=== PATIENT | male | born 1940 | race Caucasian/White ===

== ENCOUNTER 2020-06-24 09:31 | Outpatient (RCR) | payer OTHER, SELFPAY ==
[2020-06-24 09:33] VITALS: BMI 30.4
== END 2020-09-08 14:05 | disposition home or self-care (01) ==
LOC: ANHDMC 09:31
PROVIDERS: Visit Provider Internal Medicine Nephrology
DX: N18.3 Chronic kidney disease, stage 3 (moderate) (principal); Z71.3 Dietary counseling and surveillance
CPT/HCPCS: 97802

== ENCOUNTER 2020-07-27 14:37 | Observation (INO) | payer OTHER, SELFPAY ==
[2020-07-27] VITALS (27 sets, daily range): BP systolic 110–184; BP diastolic 54–73; PULSE 39–54; RESP 12–29; TEMP 36.7–37.2; O2SAT 98–100; BMI 28.5
--- NOTE | ~2020-07-27 | US_ITS ---
EXAMINATION: US retroperitoneal duplex ltd EXAM DATE: 07/28/2020 16:28 INDICATION: High blood pressure. TECHNIQUE: Multiple grayscale and Doppler images of the kidneys and renal arteries were obtained. Co mparison is made to prior examination from 11/24/2012. FINDINGS: The aorta peak systolic velocity is 69 cm/s. The right renal artery peak systolic velocity is 95 cm/s in the proximal segment, 83 cm/s in the mid segment, and 97 cm/s in the distal segment. The left terry al artery peak systolic velocity is 5 cm/s in the proximal segment, 114 cm/s in the mid segment, and 100 cm/s in the distal segment. IMPRESSION: 1. Renal artery Doppler velocities within normal limits. Reviewed, dictated and finalized at location B.
--- NOTE | 2020-07-27 14:56 | ECG_ITS ---
Measurements Intervals [place] Rate: 43 P: MD: 0 QRS: 0 QRSD: 129 T: 41 QT: 516 QTc: 437 Interpretive Statements SINUS OR ECTOPIC ATRIAL RHYTHM WITH SINUS ARRHYTHMIA RSR' IN V1 OR V2, CONSIDER RIGHT VENTRICULAR HYPERTROPHY OR RIGHT VCD BASELINE ARTIFACT- I, II, III, AVL, AVF BORDERLINE ECG Electronically Signed On 07-27-2020 16:59:52 CDT by Christopher Coley D.O.
--- NOTE | 2020-07-27 15:01 | ED.WEAKNESS ---
HPI - Weakness General Chief complaint: Weakness Stated complaint: weakness/fall Time Seen by Provider: 07/27/20 14:37 History of Present Illness HPI Narrative: 79 yo male w/ htn, CKD presnets from home after a fall. He suddenly began feeling weak and dizzy then his legs gave out. He did not lose consciousness. He had a similar episodes a few days ago. He was recently started on a new blood pressure medication. He was having symptoms when he first started, but after dividing it into 2 doses this improved. No CP, SOB. He was bradycardic for EMS and they gave him atropine without response. Related Data Home Medications Medication Instructions Recorded Confirmed alprazolam 0.25 mg PO BID 07/27/20 07/27/20 doxazosin 8 mg PO DAILY 07/27/20 07/27/20 escitalopram oxalate 10 mg PO DAILY 07/27/20 07/27/20 famotidine 40 mg PO DAILY 07/27/20 07/27/20 gabapentin 200 mg PO BID 07/27/20 07/27/20 hydrochlorothiazide 25 mg PO DAILY 07/27/20 07/27/20 hydroxychloroquine 200 mg PO BID 07/27/20 07/27/20 irbesartan 150 mg PO BID 07/27/20 07/27/20 simvastatin 10 mg PO DAILY 07/27/20 07/27/20 Allergies Allergy/AdvReac Type Severity Reaction Status Date / Time No Known Allergies Allergy Verified 10/17/18 15:37 Review of Systems Review of Systems: All systems reviewed & are unremarkable except as noted in HPI and below Constitutional: Constitutional: Denies fever(s) Eyes: Eyes: Denies change in vision Cardiovascular: Cardiovascular: Denies chest pain Respiratory: Respiratory: Denies dyspnea Gastrointestinal: Gastrointestinal: Denies abdominal pain, Denies nausea and Denies vomiting Musculoskeletal: Musculoskeletal: Denies back pain Neurologic: Denies confusion, Reports dizziness, Denies syncope, Denies numbness and Reports weakness [facility] Past Medical History Medical History (Updated 07/31/20 @ 17:23 by Miguel Villaseñor MD) Bilateral carotid artery stenosis 50 to 69% stenosis on the right and greater than 70% stenosis on the left CKD (chronic kidney disease) Stage III managed by Dr. uQintin Downey Erythropoietin deficiency anemia Essential hypertension HTN (hypertension) Lupus (systemic lupus erythematosus) Monoclonal gammopathy Obstructive sleep apnea With nasal CPAP use Orthostasis Peripheral artery disease With moderately decreased ABIs bilaterally December 2011 Prostate cancer Managed by Dr. Elizalde Rectus diastasis Sjogrens syndrome Spinal stenosis at L4-L5 level Surgical History Surgical History History of right inguinal hernia repair History of total bilateral knee replacement With the right knee being replaced once in the left knee being replaced 3 times with chronic left knee pain Family History Family History Mother Cirrhosis Sibling Esophageal cancer Father Acute myocardial infarction Lung disease Sibling Esophageal cancer Social History Social History Social History: The patient has had on and off tobacco use history. According to prior documentation the patient had smoked up until 1998 and quit in evidently the patient started smoking again about 10 years ago. He lives in has 2 children. Code status: Full code Healthcare power of hot billet shear operator: Linda Frank () Smoking packs per day: 0.5 Smoking cigarettes per day: 10.0 Years smoked: 10 Smoking pack-years: 5.00 Smoking status: Current every day smoker Tobacco type: cigarettes Alcohol intake: never Substance use: never Spiritual care concerns: No Exam Const: General: no acute distress and alert Orientation/consciousness: patient oriented x3 HENMT: Head: normal to inspection Neck: Neck: normal visual inspection Chest: Chest palpation & inspection: no tenderness Resp: Effort & Inspection: normal respiratory effort Auscultation: clear to
[2020-07-27 15:09] LABS: Basophils Percent Auto 0.6 % (0.2-1.2); Eosinophils Absolute Auto 0.2 K/mm3 (0-0.3); Eosinophils Percent Auto 2.8 % (0-4.4); Hematocrit 31.3 % (42.0-52.0); Hemoglobin 10.4 g/dL (14.0-18.0); Immature Granulocyte Absolute 0.03 K/mm3 (0.00-0.031); Immature Granulocyte Percent A 0.6 % (0-0.5); Lymphocytes Absolute Auto 0.88 K/mm3 (0.9-3.2); Lymphocytes Percent Auto 16.1 % (18.3-44.2); Mean Corpuscular HGB Conc 33.2 g/dl (32-36); Mean Corpuscular Hemoglobin 32.4 pg (26-34); Mean Corpuscular Volume 97.5 fl (80-100); Mean Platelet Volume 10.1 fl (7.4-10.4); Monocytes Absolute Auto 0.5 K/mm3 (0.1-0.6); Neutrophils Absolute Auto 3.9 K/mm3 (1.3-6.7); Neutrophils Percent Auto 70.9 % (45.5-73.1); Platelet Count Result 169 k/mm3 (150-375); Red Blood Count 3.21 M/mm3 (4.6-6.20); Red Cell Distribution Width 12.5 % (11.5-14.5); White Blood Count 5.5 K/mm3 (4.5-10.0)
[2020-07-27] MEDS: SODIUM CHLORIDE 0.9% IV 1,000 ML 999 ML IV CONT (15:14)
[2020-07-27 15:20] LABS: Anion Gap 8 mmol/L (8-16); Blood Urea Nitrogen 51 mg/dL (9-20); Calcium 9.6 mg/dL (8.4-10.2); Carbon Dioxide 24 mmol/L (22-30); Chloride 110 mmol/L (98-107); Estimated CRCL calculation 26 ml/min; Estimated Glomerular Filt Rate 29; Glucose 112 mg/dL (75-110); Potassium 4.5 mmol/L (3.4-5.0); Sodium 142 mmol/L (137-145)
--- NOTE | 2020-07-27 15:26 | PC.NURSE ---
Remaining 700cc NS initiated per [facility] started for fluid bolus.
--- NOTE | 2020-07-27 16:50 | PC.NURSE ---
Pt's out to desk states wants to speak to the physician regarding the pateint's blood pressure and that it continues to rise. Explained that we're watching pt's heart rate closely as it's been less than 50 occasionally. Pt is asleep on stretcher, when awoke has no complaints.
--- NOTE | 2020-07-27 16:52 | PC.NURSE ---
Note pt's approaching Dr. Villaseñor outside of another patient's room regarding patient's blood pressure. Pt remains asleep without complaints.
[2020-07-27] MEDS: hydrALAZINE HCL 20 MG/ML VIAL 10 MG IV PUSH (17:00)
--- NOTE | 2020-07-27 18:38 | PC.NURSE ---
Preparing to admit, awaiting bed assignment. Pt's bring pt some food.
--- NOTE | 2020-07-27 19:15 | PC.NURSE ---
Report to SANCHEZ Waldrop, to continue care.
--- NOTE | 2020-07-27 20:05 | ADMGEN ---
This patient, Abdirizak Frank, was admitted to 2 Medical Room 256-01. Patient/family oriented to hospital policies and general routines including ID bracelet, bed and alarms, visiting hours, pain management, procedures, bathroom and other care routines, personal items, smoking policy, room service/diet, and visiting hours. Valuables list has been completed. Information on how to activate the Rapid Response Team has been discussed. Patient/Family are encouraged to report perceived risks to care and to ask questions if they do not understand what they are told or what they should do.
[2020-07-27] MEDS: LACTATED RINGERS 1,000 ML 75 ML IV CONT (22:31)
[2020-07-28] VITALS (12 sets, daily range): BP systolic 104–185; BP diastolic 44–79; PULSE 42–93; RESP 16–21; TEMP 36.2–36.9; O2SAT 99–100
--- NOTE | 2020-07-28 | ECHO_ITS ---
Patient Info Name: Abdirizak Frank Age: 79 years : 1940 Gender: Male Ht: 66 in Wt: 176 lbs BSA: 1.95 m2 HR: 48 bpm BP: 104 / 44 mmHg Heart Rhythm: Sinus Rhythm Technical Quality: Good Exam Date: 07/28/2020 2:41 PM Exam Location: [facility] Pulmonary Exam Room: 256 Patient Status: Inpatient Admit Date: 07/27/2020 Staff Ordering Physician: Vandana Bradford PA-C Adult Day Care Worker: Keren Wright RDCS Attending Provider: Vandana Bradford PA-C Referring Physician: Suzette MIXON; Exam Type: CA echo dop color flow w con Study Info Indications - bradycardia near syncope Complete two-dimensional, color flow and Doppler transthoracic echocardiogram is performed. Summary 1. Complete two-dimensional, color flow and Doppler transthoracic echocardiogram is performed. 2. Left ventricular systolic function is normal, estimated at Empty. 3. There is trace aortic valve regurgitation. 4. There is mild aortic valve sclerosis. 5. There is mild mitral valve regurgitation. Left Ventricle Left ventricular systolic function is normal, estimated at Empty. The left ventricular diastolic function is grade I diastolic dysfunction. Right Ventricle Right ventricular chamber dimension is normal. Left Atria Left atrial chamber dimension is normal. Right Atria Right atrial chamber dimension is normal. Aortic Valve The aortic valve is trileaflet. There is mild aortic valve sclerosis. There is trace aortic valve regurgitation. Pulmonic Valve The pulmonic valve is not well visualized. Mitral Valve The mitral valve has normal leaflets. There is mild mitral valve regurgitation. The mitral valve annulus is mildly calcified. Tricuspid Valve The tricuspid valve leaflets are normal. Pericardium/Pleural The pericardium appears normal. Aorta The aortic root size at the sinus of Valsalva is normal. Left Ventricular Outflow Tract Name Value Normal LVOT 2D LVOT Diameter 1.96 cm LVOT Doppler LVOT Peak Gradient 5 mmHg LVOT Mean Gradient 3 mmHg LVOT VTI 30.28 cm LVOT VTI/AV VTI Ratio 0.72 LVOT Stroke Volume 90.89 ml LVOT CO 14.36 l/min LVOT CI 7.37 L/min/m2 Pulmonic Valve Name Value Normal PV Doppler PV Peak Gradient 8 mmHg Mitral Valve Name Value Normal MV Doppler MV Decel [place] 132.64 cm/s2 MV PHT 0 s
[2020-07-28] MEDS: ALPRAZolam (*CRX) 0.25 MG TABLET PO ×3 (00:24→20:48)
[2020-07-28] MEDS: GABAPENTIN 100 MG CAPSULE 200 MG PO ×3 (00:24→20:49)
--- NOTE | 2020-07-28 02:52 | PM.IMHP ---
H&P: HPI History of Present Illness Date/Time: 07/28/20 03:40 Chief complaint: Weakness Narrative: Abdirizak Frank is a 79 year old male with a past medical history of hypertension, chronic kidney disease, and chronic bradycardia who presented to the ER via EMS due to generalized weakness. That he had been working out in the garage helping his daughter move some boxes around. He suddenly felt weak and dizzy as if he may pass out. He tried to walk inside but fell. He denies a complete loss of consciousness but was out of it enough that he could not respond to his family members. High subsequently called EMS. When EMS arrived at the patient's home they found his blood pressure to be 90/48 and his heart rate in the 50s. He received a half amp of atropine and a fluid bolus. That atropine did not bring the patient's heart rate up. The patient does have a history of chronic bradycardia. The patient had been evaluated by his brainer in June. On July 17 his Norvasc was discontinued and replaced with nifedipine 30 mg daily. The 1st day that he took the nifedipine on the he did have some lightheadedness and felt fatigued. He subsequently split the nifedipine and to 2 doses a 15 mg b.i.d. which seemed to improve his symptoms. He reports that he was otherwise feeling in his usual health prior to this episode. His heart rate has ranged between 40-60 since admission to the hospital. Review of Systems Review of Systems: Narrative: 12 systems were reviewed with pertinent positives and negatives per HPI. Except as documented in the HPI, all other systems were reviewed and are negative. [facility] Past Medical History Medical History (Updated 07/28/20 @ 07:02 by Rosalba Westbrook DO) Bilateral carotid artery stenosis 50 to 69% stenosis on the right and greater than 70% stenosis on the left CKD (chronic kidney disease) Stage III managed [address] Dr. Quintin Downey Essential hypertension HTN (hypertension) Lupus (systemic lupus erythematosus) Monoclonal gammopathy Obstructive sleep apnea With nasal CPAP use Peripheral artery disease With moderately decreased ABIs bilaterally December 2011 Prostate cancer Managed by Dr. Elizalde Rectus diastasis Sjogrens syndrome Spinal stenosis at L4-L5 level Surgical History Surgical History (Updated 07/28/20 @ 07:02 by Rosalba Westbrook DO) History of right inguinal hernia repair History of total bilateral knee replacement With the right knee being replaced once in the left knee being replaced 3 times with chronic left knee pain Family History Family History (Updated 07/28/20 @ 07:06 by Rosalba Westbrook DO) Mother Cirrhosis Sibling Esophageal cancer Father Acute myocardial infarction Lung disease Sibling Esophageal cancer Social History Social History (Updated 07/28/20 @ 07:06 by Rosalba Westbrook DO) Social History: The patient has had on and off tobacco use history. According to prior documentation the patient had smoked up until 1998 and quit in the patient started smoking again about 10 years ago. He lives in has 2 children. Code status: Full code [facility] power of workers compensation attorney: Linda Frank () Smoking packs per day: 0.5 Smoking cigarettes per day: 10.0 Years smoked: 10 Smoking pack-years: 5.00 Smoking status: Current every day smoker Tobacco type: cigarettes Alcohol intake: never Substance use: never Spiritual care concerns: No Meds Home Medications and Allergies Home Medications Medication Instructions Recorded Confirmed Type alprazolam 0.25 mg PO BID 07/27/20 07/27/20 History doxazosin 8 mg PO DAILY 07/27/20 07/27/20 History escitalopram oxalate 10 mg PO DAILY 07/27/20 07/27/20 History famotidine 40 mg PO DAILY 07/27/20 07/27/20 History gabapentin 200 mg PO BID 07/27/20 07/27/20 History hydralazine 10 mg PO DAILY 07/27/20 07/27/20 History hydrochlorothiazide 25 mg PO DAILY 07/27/20 07/27/20 History hydroxych
--- NOTE | 2020-07-28 07:36 | PM.CNNEP ---
Assessment and Plan Assessment and plan (1) Bradycardia: Code(s): R00.1 - Bradycardia, unspecified Status: Acute Assessment and Plan: The patient had low blood pressure and low heart rate leading to near syncope. The patient was given a long-acting formulation for nifedipine. He cut this in half, essentially changing it to the short-acting version. This may be why he was having his lightheaded spells , as he was getting a surge of nifedipine for few hours after each dose. At this point we should just stop the nifedipine and switch to something else. I am going to increase his doxazosin to8mg b.i.d.. Patient's blood pressure has been commit increasingly difficult to control. He does have peripheral vascular disease. Perhaps he has renal artery stenosis. Will check a renal artery Doppler to check on this. I will as also check hormone levels to see if there other reversible causes of his worsening hypertension. (2) CKD (chronic kidney disease): Code(s): N18.9 - Chronic kidney disease, unspecified Status: Acute Assessment and Plan: The patient has chronic kidney disease. This is from hypertension and vascular disease. His creatinine is stable. (3) Essential hypertension: Code(s): I10 - Essential (primary) hypertension Status: Acute Assessment and Plan: Blood pressure is difficult to control. See above. (4) Lupus (systemic lupus erythematosus): Code(s): M32.9 - Systemic lupus erythematosus, unspecified Status: Acute Assessment and Plan: the patient's symptoms seem to be fairly well controlled. (5) Monoclonal gammopathy: Code(s): D47.2 - Monoclonal gammopathy Status: Acute Assessment and Plan: Platelet and white cell count are okay. Calcium looks okay. He is a little bit anemic. This may be from the CKD. (6) Obstructive sleep apnea: Code(s): G47.33 - Obstructive sleep apnea (adult) (pediatric) Status: Acute Assessment and Plan: He uses CPAP machine religiously. (7) Peripheral artery disease: Code(s): I73.9 - Peripheral vascular disease, unspecified Status: Acute Assessment and Plan: He has bilateral carotid artery disease. Will check renal artery Dopplers as well. (8) Erythropoietin deficiency anemia: Code(s): D63.1 - Anemia in chronic kidney disease Status: Acute Assessment and Plan: Patient's hemoglobin is target right now. The anemia could be multifactorial. Most likely this is from his chronic kidney disease. History of Present Illness Reason for Consult Consult date: 07/28/20 Chief Complaint Chief complaint: Weakness History of Present Illness Narrative: Abdirizak is a very pleasant 79-year-old gentleman who has chronic kidney disease with a baseline creatinine of around 2, hypertension with recently difficult to control blood pressure, peripheral vascular disease with bilateral carotid artery stenosis, lupus, monoclonal gammopathy, sleep apnea on the CPAP machine, prostate cancer Sjogren's syndrome and spinal stenosis at the lumbar level. Patient has been having trouble controlling his blood pressure and has required medication adjustments. He was on hydralazine with reasonable control of his blood pressure however his surface to air weapons officer felt that the hydralazine may potentially stir up his lupus so asked that we change it to something else. So the hydralazine was discontinued and we switched him from amlodipine to nifedipine about a week and half ago. He took 1 dose of the nifedipine and felt a little bit lightheaded. Because of this he changed his nifedipine on his own to15mg twice a day. He cut the pill with a pill cutter. He did not check with the pharmacist about cutting the pill in half. He says that since then he has been somewhat lightheaded all week long. Yesterday the patient was feeling especially lightheaded then fell. He was i
[2020-07-28] MEDS: ENOXAPARIN 30 MG/0.3 ML SYRINGE SUB-Q (07:58)
[2020-07-28] MEDS: ESCITALOPRAM OXALATE 10 MG TABLET PO (07:58)
[2020-07-28] MEDS: FAMOTIDINE 20 MG TABLET 40 MG PO (07:58)
[2020-07-28] MEDS: DOXAZOSIN MESYLATE 4 MG TABLET 8 MG PO ×2 (07:59→20:49)
[2020-07-28] MEDS: hydroCHLOROthiazide 25 MG TABLET PO (07:59)
[2020-07-28] MEDS: SIMVASTATIN 10 MG TABLET PO (07:59)
[2020-07-28] MEDS: IRBESARTAN 150 MG TABLET PO ×2 (07:59→17:30)
[2020-07-28] MEDS: LACTATED RINGERS 1,000 ML 75 ML IV CONT ×2 (11:32→23:55)
--- NOTE | 2020-07-28 11:49 | PM.IMPN ---
Progress Note: A&P Assessment and Plan (1) Near syncope: Code(s): R55 - Syncope and collapse Status: Acute Assessment and Plan: Possibly secondary to bradycardia and or hypotension suspected to be due to nifedipine use which was recently started by his general passenger agent. Telemetry shows sinus bradycardia with a heart rate of 52 beats per minute, with intermittent PACs in PVCs. No other acute abnormality noted. No pauses. Orthostatic blood pressures showed a greater than 20 mm of mercury drop going from lying to sitting but the patient was asymptomatic. He has known carotid artery stenosis and follows up with a specialist for yearly monitoring of his carotid arteries. The patient's nifedipine is on hold. Patient's blood pressures are actually high this morning and while he is laying supine. Nephrology was consulted for further evaluation adjustments of his blood pressure medications. Dr. Downey ordered for hormone testing, renal artery ultrasound to look for renal artery stenosis, an increased his doxazosin to 8 mg q.12. Continue monitoring the patient. (2) Bradycardia: Code(s): R00.1 - Bradycardia, unspecified Status: Acute Assessment and Plan: Likely due to a combination of patient's baseline bradycardia complicated by combination of nifedipine and hydroxychloroquine use. Patient's home nifedipine and hydroxychloroquine are on hold. Tele shows sinus bradycardia with a heart rate of 52 beats per minute. He states this is chronic since he was a teenager. Most likely his near syncope was secondary to his nifedipine but will continue monitoring as this medication is discontinued and further adjustments are made from nephrology Continue monitoring on tele at this time. (3) CKD (chronic kidney disease): Code(s): N18.9 - Chronic kidney disease, unspecified Status: Acute Assessment and Plan: Chronic. Creatinine was 2.2. I am unable to get any labs to see if this this is baseline. Nephrology is on the case and I appreciate their recommendations. (4) Bilateral carotid artery stenosis: Code(s): I65.23 - Occlusion and stenosis of bilateral carotid arteries Status: Acute Assessment and Plan: Known history and follows up with a specialist as an outpatient. Do not feel any repeat imaging at this time but will have him follow-up with specialist for further evaluation. (5) Essential hypertension: Code(s): I10 - Essential (primary) hypertension Status: Acute Assessment and Plan: Blood pressure was high whenever he is supine in the 180 systolic. After taking his morning medications his blood pressure improved to normal range. Nephrology was consulted for further evaluation adjustments on his medications. Nephrology is wondering if he has renal artery stenosis in ordered ultrasound imaging. Continue monitoring blood pressure with adjustments that have been made. (6) Lupus (systemic lupus erythematosus): Code(s): M32.9 - Systemic lupus erythematosus, unspecified Status: Acute Assessment and Plan: Patient is on hydroxychloroquine but it is placed on hold at this time due to his near syncopal episodes. Continue monitoring at this time. Time Spent With Patient Time with patient: 25 - 35 minutes Subjective Date/time seen: 07/28/20 11:49 Interval history: Date of service 07/28/2020: The patient is feeling well today without any concerns. He is just tired who did not sleep very well last night. He was up walking around to the bathroom and in the chair without any lightheadedness or dizziness. He denies any chest pain, shortness of breath, cough, fever, chil
[2020-07-29] VITALS (9 sets, daily range): BP systolic 143–184; BP diastolic 44–67; PULSE 40–90; RESP 16–21; TEMP 36.9; O2SAT 97–100
[2020-07-29 05:53] LABS: Hematocrit 28.8 % (42.0-52.0); Hemoglobin 9.4 g/dL (14.0-18.0); Mean Corpuscular HGB Conc 32.6 g/dl (32-36); Mean Corpuscular Hemoglobin 32.5 pg (26-34); Mean Corpuscular Volume 99.7 fl (80-100); Mean Platelet Volume 10.6 fl (7.4-10.4); Platelet Count Result 162 k/mm3 (150-375); Red Blood Count 2.89 M/mm3 (4.6-6.20); Red Cell Distribution Width 12.5 % (11.5-14.5); White Blood Count 6.2 K/mm3 (4.5-10.0)
[2020-07-29 06:07] LABS: Anion Gap 5 mmol/L (8-16); Blood Urea Nitrogen 44 mg/dL (9-20); Calcium 9.1 mg/dL (8.4-10.2); Carbon Dioxide 25 mmol/L (22-30); Chloride 113 mmol/L (98-107); Estimated CRCL calculation 28 ml/min; Estimated Glomerular Filt Rate 37; Glucose 68 mg/dL (75-110); Potassium 4.3 mmol/L (3.4-5.0); Sodium 143 mmol/L (137-145)
[2020-07-29] MEDS: ENOXAPARIN 30 MG/0.3 ML SYRINGE SUB-Q (09:29)
[2020-07-29] MEDS: DOXAZOSIN MESYLATE 4 MG TABLET 8 MG PO (09:29)
[2020-07-29] MEDS: ALPRAZolam (*CRX) 0.25 MG TABLET PO (09:29)
[2020-07-29] MEDS: hydroCHLOROthiazide 25 MG TABLET PO (09:30)
[2020-07-29] MEDS: IRBESARTAN 150 MG TABLET PO ×2 (09:30→18:01)
[2020-07-29] MEDS: SIMVASTATIN 10 MG TABLET PO (09:30)
[2020-07-29] MEDS: GABAPENTIN 100 MG CAPSULE 200 MG PO (09:30)
[2020-07-29] MEDS: FAMOTIDINE 20 MG TABLET 40 MG PO (09:30)
[2020-07-29] MEDS: ESCITALOPRAM OXALATE 10 MG TABLET PO (09:30)
--- NOTE | 2020-07-29 10:35 | PM.PNNEP ---
Progress Note: A&P Assessment and Plan (1) Bradycardia: Code(s): R00.1 - Bradycardia, unspecified Status: Acute Assessment and Plan: The patient had low blood pressure and low heart rate leading to near syncope. His blood pressure is better now. He is walking in the halls and doing well. His heart rate is in the 40s. Patient says ?it's always like this ? I talked with hospitalist and we will get a cardiology consult. The nifedipine has probably worn off. I do not think this cause his so heart rate to be low but it may have caused his low blood pressure since he cut the pills in half. (2) CKD (chronic kidney disease): Code(s): N18.9 - Chronic kidney disease, unspecified Status: Acute Assessment and Plan: The patient has chronic kidney disease. This is from hypertension and vascular disease. His creatinine is stable. Creatinine is 1.8 today. (3) Essential hypertension: Code(s): I10 - Essential (primary) hypertension Status: Acute Assessment and Plan: Blood pressure is difficult to control. See above. Renal artery Dopplers are negative. Hormonal studies pending (4) Lupus (systemic lupus erythematosus): Code(s): M32.9 - Systemic lupus erythematosus, unspecified Status: Acute Assessment and Plan: the patient's symptoms seem to be fairly well controlled. (5) Monoclonal gammopathy: Code(s): D47.2 - Monoclonal gammopathy Status: Acute Assessment and Plan: Platelet and white cell count are okay. Calcium looks okay. He is a little bit anemic. This may be from the CKD. (6) Obstructive sleep apnea: Code(s): G47.33 - Obstructive sleep apnea (adult) (pediatric) Status: Acute Assessment and Plan: He uses CPAP machine religiously. (7) Peripheral artery disease: Code(s): I73.9 - Peripheral vascular disease, unspecified Status: Acute Assessment and Plan: He has bilateral carotid artery disease. (8) Erythropoietin deficiency anemia: Code(s): D63.1 - Anemia in chronic kidney disease Status: Acute Assessment and Plan: Patient's hemoglobin is target right now. The anemia could be multifactorial. Most likely this is from his chronic kidney disease. Subjective Date/time seen: 07/29/20 10:35 Interval history: Patient feels better. Eager for discharge. He walked in the halls without dizziness. Review of Systems Cardiovascular: Cardiovascular: Reports no additional cardiovascular complaints Respiratory: Respiratory: Reports no additional respiratory complaints Gastrointestinal: Gastrointestinal: Reports no additional gastrointestinal complaints Genitourinary: Genitourinary: Reports no additional male genitourinary complaints Exam Narrative: Exam Narrative: WDWN in NAD skin no rash head ncat lungs clear cor reg no rub abd BS+ nontender and soft ext no edema. Objective Data Vital Signs Vital Signs: Vital Signs - 24 hr 07/28/20 10:42 07/28/20 10:43 07/28/20 10:44 Temperature Pulse Rate Respiratory Rate Blood Pressure 105/44 L 138/48 L 104/44 L Pulse Oximetry 07/28/20 12:00 07/28/20 14:00 07/28/20 16:00 Temperature 36.2 C L Pulse Rate 43 L 46 L 42 L Respiratory Rate 16 Blood Pressure 167/62 H Pulse Oximetry 100 07/28/20 20:00 07/28/20 22:00 07/29/20 00:00 Temperature 36.9 C Pulse Rate 46 L 93 46 L Respiratory Rate 21 H Blood Pressure 180/74 H Pulse Oximetry 100 07/29/20 04:00 07/29/20 06:00 07/29/20 08:30 Temperature 36.9 C Pulse Rate 45 L 43 L 42 L Respiratory Rate 21 H Blood Pressure 157/67 H Pulse Oximetry 100 Intake/Output Intake/Output: Intake & Output 07/26/20 07/27/20 07/28/20 07/29/20 23:59 23:59 23:59 23:59 Intake Total 1000 4211 1740 Output Total 1950 950 Balance 1000 2261 790 Meds/Results Medications: Active Medications Generic
--- NOTE | 2020-07-29 14:41 | PM.IMPN ---
Progress Note: A&P Assessment and Plan (1) Near syncope: Code(s): R55 - Syncope and collapse Status: Acute Assessment and Plan: Possibly secondary to bradycardia and/or hypotension due to nifedipine use. He does feel symptoms started after he was recently prescribed nifedipine. Bradycardia persisted despite discontinuation of nifedipine. Cardiology has been consulted for further input regarding persistent bradycardia. Telemetry shows rates in the 40s with intermittent PACs and PVCs. No pathologic pauses were identified. Orthostatic BP readings did demonstrate orthostasis but the patient was asymptomatic. Continue DEVIN hose. Appreciate nephrology input. Dr. Downey ordered hormone testing which is pending. Renal artery duplex US was negative for renal artery stenosis. (2) Bradycardia: Code(s): R00.1 - Bradycardia, unspecified Status: Acute Assessment and Plan: Bradycardia was initially felt to be secondary to nifedipine and hydroxychloroquine use but has persisted today with heart rate in the 40s. Nifedipine was last taken the morning of 07/27/20 (1/2 tablet of 15mg ER nifedipine). His near syncope was felt to be secondary to the nifedipine but bradycardia has persisted. Discussed with Dr. Downey and will consult cardiology for further input as there is concern that he may have symptomatic bradycardia. Appreciate cardiology input. Continue to avoid all AV kim blocking agents. Continue telemetry monitoring. (3) CKD (chronic kidney disease): Code(s): N18.9 - Chronic kidney disease, unspecified Status: Acute Assessment and Plan: Chronic. Cr is 1.8 and BUN 44. On review of labs from 4926-6194, his renal function appears at baseline with Cr 1.8-2.0 and BUN 28-49. Nephrology is on board and input is greatly appreciated. (4) Bilateral carotid artery stenosis: Code(s): I65.23 - Occlusion and stenosis of bilateral carotid arteries Status: Acute Assessment and Plan: The patient reports a known hx of carotid stenosis and follows with vascular surgery. He was scheduled to see his vascular surgeon early this week and I have encouraged him to reschedule the appointment for management/surveillance of his carotid stenosis and peripheral arterial disease. (5) Essential hypertension: Code(s): I10 - Essential (primary) hypertension Status: Acute Assessment and Plan: Blood pressures were reviewed and have improved today following administration of his antihypertensives. Nephrology is on board and input is greatly appreciated. Renal artery duplex US was negative for renal artery stenosis. Continue to monitor and continue antihypertensives per nephrology including doxazosin, hydrochlorothiazide, and irbesartan. Nifedipine was discontinued and hydralazine was discontinued previously in the outpatient setting. Hormonal studies ordered per nephrology are pending. (6) Lupus (systemic lupus erythematosus): Code(s): M32.9 - Systemic lupus erythematosus, unspecified Status: Acute Assessment and Plan: The patient takes hydroxychloroquine prior to admission which is on hold at this time due to near syncope. Continue monitoring at this time. (7) Obstructive sleep apnea: Code(s): G47.33 - Obstructive sleep apnea (adult) (pediatric) Status: Acute Assessment and Plan: Continue PAP therapy titrated to home settings. (8) Anemia: Code(s): D64.9 - Anemia, unspecified Status: Chronic Assessment and Plan: Stable. Likely secondary to CKD. He also has a hx of EPO deficiency and monoclonal gammopathy and needs to continue follow-up outpatient with his specialists and primary care doctor. Continue to monitor and transfuse PRN to maintain Hb >7. Subjective Date/time seen: 07/29/20 14:41 Mr. Frank is a 79 y.o. male with PMH significant for CKD, peripheral vascular disease, hypertension, l
--- NOTE | 2020-07-29 16:48 | WPDCN ---
Assessment and Plan Assessment and plan (1) Near syncope: Code(s): R55 - Syncope and collapse Status: Acute Assessment and Plan: Patient had episode of syncope or near syncope at home and the question is whether this is due to his bradycardia or is low blood pressure/ orthostasis. The bradycardia is chronic and not excessive. He is definitely orthostatic and was found to have a blood pressure of 90 on EMS arrival. I suspect low blood pressure and orthostasis is the primary cause. (2) Orthostasis: Code(s): I95.1 - Orthostatic hypotension Status: Acute Assessment and Plan: The patient was cutting his nifedipine ER in half, which may have aggravated some pre-existing predisposition for orthostasis by releasing the medication too quickly. In addition nifedipine is known to be associated with orthostasis. He also had of episode of near syncope getting out of the shower last week, and likely pre-existing orthostasis was aggravated by vaso- dilatation from the shower. He is still orthostatic today so may have underlying autonomic dysfunction that we have to work around. May need to lighten up on the fluid the salt restriction. Encouraged p.o. fluids (3) Bradycardia: Code(s): R00.1 - Bradycardia, unspecified Status: Acute Assessment and Plan: Patient has sinus bradycardia at rest, who, on this brief time in the hospital, appears to be able to increase his heart rate with activity. No excessive bradycardia or AV block noted. Likely this is still asymptomatic bradycardia but does need to be followed. Recommend he follow-up with his usual freight caller, Dr. Wetzel. (4) Essential hypertension: Code(s): I10 - Essential (primary) hypertension Status: Acute Assessment and Plan: The patient also has hypertension which is difficult to treat when patients have orthostasis. I have explained repeatedly to the patient's that it is better to have a little bit of a high blood pressure rather than low blood pressure which can cause dizziness falls and injuries. I think gradually will work with his medications to improve his systolic hypertension. Of course would avoid diuretics and the nifedipine. (5) CKD (chronic kidney disease): Code(s): N18.9 - Chronic kidney disease, unspecified Status: Acute Assessment and Plan: Followed by Dr. Downey (6) Bilateral carotid artery stenosis: Code(s): I65.23 - Occlusion and stenosis of bilateral carotid arteries Status: Acute Assessment and Plan: Takes aspirin and rosuvastatin. Additional Plan OK for discharge from my point of view Follow-up with Dr. Downey and Dr. Chester, and PMD, for blood pressure management Will need ongoing monitoring of HR but no need for pacemaker at this time. HPI Data of Consult Date/Time: 07/29/20 16:48 Requesting Physician: Erica Davis PA-C Primary Care Provider: PHYSICIAN NOT ON STAFF Consult Narrative Narrative: Date of service: 07/29/2020 Abdirizak Frank is a 79 year old male Was asked to see at the request of hospitalist for my advice and opinion regarding his bradycardia and lightheadedness. The patient was admitted with lightheadedness, dizziness, orthostasis, low blood pressure and bradycardia. He is followed by freight caller Dr. Bipin Chester at [facility] for his hypertension, hyperlipidemia and bradycardia. Echo in April 2019 showed EF 65%, mild LVH. Monitor in 06/2019 showed sinus rhythm with sinus bradycardia, no significant conduction disturbance. Symptoms did not correlate with any arrhythmias. The patient's Norvasc was changed to nifedipine 30 mg daily on July 17 but he was having low blood pressure so he
--- NOTE | 2020-07-29 20:42 | PM.DS ---
DS: Admitting Diagnosis Admitting Diagnosis Admitting Diagnosis: Weakness DS: Discharge Diagnosis Discharge Diagnosis (1) Near syncope: Code(s): R55 - Syncope and collapse Status: Acute Assessment and Plan: Hospitalist Discharge Summary (Date of service 07/29/20): Mr. Frank is a 79 y.o. male with PMH significant for CKD, hypertension, SLE, bilateral carotid artery stenosis, and chronic bradycardia who presented to the emergency department for the evaluation of generalized weakness. He reported feeling very weak and dizzy and felt he may pass out when moving boxes. His blood pressure on EMS arrival was 90/48 and heart rate in the 50s. He reported being recently prescribed nifedipine which he was not taking as prescribed. He was splitting an extended release tablet in half which changed it to the short-acting version. Initial workup in the emergency included WBC 5,500, Hb 10.4, Hct 31.3, chloride 110, CO2 24, BUN 51, creatinine 2.2, glucose 112. EKG with sinus or ectopic atrial rhythm with sinus arrhythmia and rate 43. He was admitted to the hospitalist service for further evaluation and treatment. Nephrology was consulted and ordered renal artery US and hormonal studies. Nifedipine was discontinued and hydralazine had already been discontinued in the outpatient setting. Orthostatic BP was positive for orthostatic hypotension but he was asymptomatic with testing and was not having any dizziness, lightheadedness, or near-syncope when he was orthostatic. He likely has a component of underlying autonomic dysfunction. PO fluid intake was encouraged and cardiology recommended keeping his blood pressure a little on the higher side as opposed to the lower side to prevent further falls and injuries. He was advised to monitor his blood pressure closely and follow-up with his PCP, nephrology, and cardiology for adjustments as necessary. He was discharged by my collaborating physician, Dr. Peggy Beth, on the evening of 07/29/20. I called the patient the next morning after discharge (07/30/20) to go over additional discharge instructions including medications and BP monitoring and he verbalized understanding that he should stop nifedipine and hydralazine. (2) Bradycardia: Code(s): R00.1 - Bradycardia, unspecified Status: Acute Assessment and Plan: Bradycardia was initially felt to be secondary to nifedipine and hydroxychloroquine use persisted despite discontinuation of nifedipine. Cardiology evaluated the patient and felt that his bradycardia was asymptomatic. Bradycardia did increase with activity and he had no evidence of excessive bradycardia or AV block. He was advised to follow-up with Dr. Chester to follow for his bradycardia and other comorbidites and pacemaker was not felt indicated at this time. (3) CKD (chronic kidney disease): Code(s): N18.9 - Chronic kidney disease, unspecified Status: Acute Assessment and Plan: Chronic. Cr is 1.8 and BUN 44. On review of labs from 5415-7810, his renal function appears at baseline with Cr 1.8-2.0 and BUN 28-49. He was seen by nephrology during his stay. (4) Bilateral carotid artery stenosis: Code(s): I65.23 - Occlusion and stenosis of bilateral carotid arteries Status: Acute Assessment and Plan: The patient reports a known hx of carotid stenosis and follows with vascular surgery. He was scheduled to see his vascular surgeon early this week and I have encouraged him to reschedule the appointment for management/surveillance of his carotid stenosis and peripheral arterial disease. (5) Essential hypertension: Code(s): I10 - Essential (primary) hypertension Status: Acute Assessment and Plan: Blood pressures were reviewed and fluctuant. Nephrology and cardiology were consulted for further input regarding treatmetn of his hypertension. Renal artery duplex US was negative for renal artery stenosis. Nifedipine was d
[2020-07-31 08:07] LABS: Metanephrine, Free 40 pg/mL (<=57); Normetanephrine, Free 152 pg/mL (<=148); Total, Free (MN + NMN) 192 pg/mL (<=205)
== END 2020-07-29 18:50 | disposition home or self-care (01) ==
LOC: ANHED 18:30 → ANH2MED 19:29
PROVIDERS: Internal Medicine Nephrology; Physician Assistant; Admitting Provider Family Medicine; Emergency Provider Emergency Medicine; Visit Provider Physician Assistant
DX: R55 Syncope and collapse (principal); R00.1 Bradycardia, unspecified; M32.9 Systemic lupus erythematosus, unspecified; D63.1 Anemia in chronic kidney disease; F17.210 Nicotine dependence, cigarettes, uncomplicated; G47.33 Obstructive sleep apnea (adult) (pediatric); I73.9 Peripheral vascular disease, unspecified; I65.23 Occlusion and stenosis of bilateral carotid arteries; I12.9 Hypertensive chronic kidney disease with stage 1 through stage 4 chronic kidney disease, or unspecified chronic kidney disease; N18.30 Chronic kidney disease, stage 3 unspecified; Z85.46 Personal history of malignant neoplasm of prostate; Z96.653 Presence of artificial knee joint, bilateral
CPT/HCPCS: 36415; 80048; 82088; 83835; 83970; 84244; 84443; 85025; 85027; 93005; 93976; 96361; 96372; 96374; 99285; A9270; C8929; G0378; J0360; J1650; J7030; J7120

== ENCOUNTER 2021-05-05 08:45 | Outpatient (CLI) | payer OTHER, SELFPAY ==
--- NOTE | ~2021-05-05 | US_ITS ---
EXAMINATION: US art doppler w press LE BI DATE: 05/05/2021 09:34 INDICATION: Peripheral vascular disease TECHNIQUE: Segmental pressures and plethysmographic and Doppler waveforms of the brachial and lower e xtremity arteries were obtained. COMPARISON: None. FINDINGS: Right and left brachial artery pressures of 173 mm Hg and 177 mm Hg, respectively, are concordant (no rmal difference <= 30 mmHg). The right and left high-thigh pressure indices were unable to be obtaine d due to inability to occlude the vessels. The right ankle-brachial index (MATTIE) is 0.85 (normal >= 0.9-1). The right great toe-brachial index (T BI) is 0.71 (normal >= 0.6-0.8). The right lower extremity segmental pressure gradients are increased between the arteries at the right ankle and the right [id number]-[id number]-frsm popliteal artery (normal gradie nts <= 20-30 mmHg between adjacent levels on the same leg or the same levels on the two legs). Arteri al waveforms are biphasic with brisk systolic upstrokes throughout. The left MATTIE is 0.61. The left TBI is 0.36. The left lower extremity segmental pressure gradients are increased between the arteries at the left ankle and the corresponding arteries at the right ankle a s well as with respect to the [id number]-wwu-[id number] popliteal artery. Arterial waveforms are biphasic with b risk systolic upstrokes throughout. IMPRESSION: 1. Bilateral arterial occlusive disease with mildly decreased right MATTIE and moderately decreased left MATTIE and TBI. Reviewed, dictated and finalized at location A. IMPRESSION: 1. Bilateral arterial occlusive disease with mildly decreased right MATTIE and mod erately decreased left MATTIE and TBI.
== END 2021-05-05 08:46 | disposition home or self-care (01) ==
LOC: ANHIMG 08:49
PROVIDERS: Visit Provider Podiatrist Foot & Ankle Surgery
DX: I73.9 Peripheral vascular disease, unspecified (principal); N18.31 Chronic kidney disease, stage 3a
CPT/HCPCS: 93923

== ENCOUNTER 2021-05-19 11:07 | Outpatient (CLI) | payer OTHER, SELFPAY ==
--- NOTE | ~2021-05-19 | US_ITS ---
EXAMINATION: US renal BI DATE: 05/19/2021 11:33 INDICATION: Chronic kidney disease, stage III TECHNIQUE: Multiple grayscale and Doppler ultrasound images of the kidneys were obtained. COMPARISON: CT, 01/12/2017 FINDINGS: The right kidney measures 10.7 x 5.2 x 6.4 cm. The left kidney measures 12.2 x 6.1 x 6.6 cm . The kidneys demonstrate increased parenchymal echogenicity. There are multiple cysts in both kidney s. The largest on the right measures up to 2.2 cm in the largest on the left measures up to 3.4 cm Th ere is no hydronephrosis. The bladder is normal. IMPRESSION: 1. Medical renal disease. Reviewed, dictated and finalized at location A. IMPRESSION: 1. Medical renal disease.
== END 2021-05-19 11:08 | disposition home or self-care (01) ==
LOC: ANHIMG 11:10
PROVIDERS: Visit Provider Internal Medicine Nephrology
DX: N18.31 Chronic kidney disease, stage 3a (principal)
CPT/HCPCS: 76775

== ENCOUNTER 2022-01-12 09:51 | Outpatient (CLI) | payer OTHER, SELFPAY ==
--- NOTE | ~2022-01-12 | XR_ITS ---
XR chest 2V 01/12/2022 10:07 Indication: Cough and congestion Procedure: 2 view chest Comparison: Comparison to multiple prior studies sequentially, with oldest reviewed study dated 01/03. Findings: Heart size normal. Pacemaker leads in the right atrium and right ventricle respectively. No focal air space disease, pulmonary edema, pleural effusion or suspected pneumothorax. There is mild thoracic spondylosis. Impression: 1: No acute cardiopulmonary disease. Reviewed, dictated and finalized at location A. Impression: 1: No acute cardiopulmonary disease.
== END 2022-01-12 09:52 | disposition home or self-care (01) ==
PROVIDERS: PCP Family Medicine; Visit Provider Nurse Practitioner Family
DX: R05.3 Chronic cough (principal); J44.9 Chronic obstructive pulmonary disease, unspecified
CPT/HCPCS: 71046

== ENCOUNTER 2022-06-14 13:42 | Emergency (ER) | payer OTHER, SELFPAY ==
--- NOTE | 2022-06-14 13:44 | ED.EXTPRO ---
HPI - Extremity Problem General Chief complaint: Wound/Laceration Stated complaint: right arm infection Time Seen by Provider: 06/14/22 13:56 Source: patient and RN notes reviewed Mode of arrival: ambulatory Limitations: dementia History of Present Illness HPI Narrative: 81-year-old male presents with concern for redness surrounding a wound on his right forearm. He reports 4 days ago he had a laceration that he sustained on a wooden bed frame. Reports he has been applying an adhesive Band-Aid and changing it about every 2 days. He reports noticing redness, itching with blisters surrounding the wound. He denies any increased pain, drainage from the wound. He denies any fever, body aches, chills, sweats, extremity pain. He denies any history of allergy to adhesive MD Complaint: other (Rash) Related Data Home Medications Medication Instructions Recorded Confirmed hydroxychloroquine 200 mg tablet 200 mg PO BID 07/27/20 06/14/22 simvastatin 10 mg tablet 10 mg PO DAILY 07/27/20 06/14/22 amlodipine 10 mg tablet 10 mg PO DAILY 08/19/21 06/14/22 gabapentin 100 mg capsule 300 mg PO BID 08/19/21 06/14/22 sodium bicarbonate 650 mg tablet 650 mg PO BID 11/17/21 06/14/22 Allergies Allergy/AdvReac Type Severity Reaction Status Date / Time No Known Allergies Allergy Verified 06/14/22 13:52 Review of Systems Review of Systems: CONSTITUTIONAL: Denies malaise, chills, sweats, or fever. EYES: Denies redness, or discharge. ENT: Denies rhinorrhea, congestion, swollen lips, swollen tongue CARDIOVASCULAR: Denies chest pain, palpitations, or edema. RESPIRATORY: Denies cough or dyspnea. GASTROINTESTINAL: Denies abdominal pain, nausea, vomiting SKIN: Reports redness, itching and blistering under the area he had a Band-Aid on his right forearm. Denies purulent drainage, bullae, numbness, pain beyond proportion MUSCULOSKELETAL: Denies joint pain or myalgia. NEUROLOGIC: Denies headache. All systems reviewed & are unremarkable except as noted in HPI and below PMFSH Past Medical History Medical History Bilateral carotid artery stenosis 50 to 69% stenosis on the right and greater than 70% stenosis on the left BMI 29.0-29.9,adult CKD (chronic kidney disease) Stage III managed by Dr. Quintin Downey COVALIRIO Erythropoietin deficiency anemia Essential hypertension HTN (hypertension) Lupus (systemic lupus erythematosus) Monoclonal gammopathy Obstructive sleep apnea With nasal CPAP use Orthostasis Peripheral artery disease With moderately decreased ABIs bilaterally December 2011 Prostate cancer Managed by Dr. Elizalde Rectus diastasis Sjogrens syndrome Spinal stenosis at L4-L5 level Surgical History Surgical History History of right inguinal hernia repair History of total bilateral knee replacement With the right knee being replaced once in the left knee being replaced 3 times with chronic left knee pain Family History Family History Mother Cirrhosis Sibling Esophageal cancer Father Acute myocardial infarction Lung disease Sibling Esophageal cancer Social History Social History Social History: The patient has had on and off tobacco use history. According to prior documentation the patient had smoked up until 1998 and quit in the patient started smoking again about 10 years ago. He lives in has 2 children. Code status: Full code Healthcare power of district attorney: Linda Frank () Smoking packs per day: 0.5 Smoking cigarettes per day: 10.0 Years smoked: 10 Smoking pack-years: 5.00 Smoking status: Current every day smoker Tobacco type: cigarettes Alcohol intake: never Substance use: never Spiritual care concerns: No Comments At time of signature, agree with nursing past
[2022-06-14 14:01] VITALS: BP 178/77; PULSE 73; RESP 16; TEMP 36.6; O2SAT 100
== END 2022-06-14 14:17 | disposition home or self-care (01) ==
PROVIDERS: Emergency Provider Nurse Practitioner; PCP Family Medicine
DX: L23.1 Allergic contact dermatitis due to adhesives (principal); I65.23 Occlusion and stenosis of bilateral carotid arteries; I12.9 Hypertensive chronic kidney disease with stage 1 through stage 4 chronic kidney disease, or unspecified chronic kidney disease; N18.30 Chronic kidney disease, stage 3 unspecified; M32.9 Systemic lupus erythematosus, unspecified; G47.33 Obstructive sleep apnea (adult) (pediatric); M35.00 Sjogren syndrome, unspecified; M48.061 Spinal stenosis, lumbar region without neurogenic claudication; Z96.653 Presence of artificial knee joint, bilateral; F17.210 Nicotine dependence, cigarettes, uncomplicated
CPT/HCPCS: 99213; G0463

== ENCOUNTER 2023-05-12 09:23 | Outpatient (CLI) | payer OTHER, SELFPAY ==
--- NOTE | ~2023-05-12 | XR_ITS ---
Clinical Indication: COPD, shortness of breath PA and lateral views of the chest: Comparison: 01/12/2022 Findings: The lungs are clear, without evidence of focal consolidation or pleural effusion. Cardiome diastinal silhouette is stable, with pacemaker device. Bones and soft tissues are unremarkable. Impression: Clear lungs. Pacemaker device. Reviewed, dictated and finalized at location . Impression: Clear lungs. Pacemaker device.
== END 2023-05-12 09:24 | disposition home or self-care (01) ==
PROVIDERS: PCP Family Medicine; Visit Provider Family Medicine
DX: J44.1 Chronic obstructive pulmonary disease with (acute) exacerbation (principal); Z95.0 Presence of cardiac pacemaker
CPT/HCPCS: 71046

== ENCOUNTER → 2023-11-25 10:21 | Outpatient (CLI) | payer OTHER, SELFPAY ==
--- NOTE | ~2023-11-25 | XR_ITS ---
XR_[id number]_CR DATE: 11/25/2023 10:36 INDICATION: Pleurodynia TECHNIQUE: COMPARISON: None FINDINGS: There is a greater than 50% superiorly displaced posterior left 9th rib fracture and minimally displa za anterior left 9th rib fracture, both recent. There is mild atelectasis at the left lung base. The lungs otherwise appear clear. No pleural effusio n or pneumothorax is detected. Heart size is normal. There is aortic calcification and mild tortuosity. There are left bipolar pacem abdifatah device with leads overlying right atrium and right ventricle. Osteopenia. IMPRESSION: Left ninth recent rib fractures and minimal atelectasis at the left lung base; no pneumot horax Reviewed, dictated and finalized at Location A. Reviewed, dictated and finalized at location B. E ATTENDANT IMPRESSION: Left ninth recent rib fractures and minimal atelectasis at the left lung base; no pneumothorax
== END ==
PROVIDERS: PCP Family Medicine; Visit Provider Physician Assistant
DX: R07.81 Pleurodynia (principal)
CPT/HCPCS: 71101

== ENCOUNTER 2023-11-26 13:06 | Emergency (ER) | payer OTHER, SELFPAY ==
--- NOTE | ~2023-11-26 | CT_ITS ---
EXAMINATION: CT diagnostic chest wo con DATE: 11/26/2023 14:24 INDICATION: fall, chest wall pain TECHNIQUE: Computed tomography (CT) of the chest was performed with 100 mL Omnipaque-350 intravenous contrast. Automated exposure control and iterative reconstruction technique were employed. The dose-l ength product was 432.14 mGy-cm. COMPARISON: X-ray RIBS 11/25/2023; CT abdomen pelvis 01/12/2017. FINDINGS: CHEST: Thoracic aorta: Mild arch ectasia. Moderate arch calcification. Lung parenchyma and airways: Lingular air cyst. Lingular scar. Mild emphysematous/senescent change.. Thoracic inlet, axillae and chest wall: Symmetric bilateral gynecomastia No thyroid mass. No axillary lymphadenopathy. Mediastinum: No mass or lymphadenopathy. Heart and pericardium: Normal heart size. No pericardial effusion. Pacemaker leads, tips in good posi tion. Aortic valve and mitral calcification Coronary artery calcifications: Absent. Pleura: No effusion or mass. Upper abdomen: Left adrenal adenoma. Multiple simple cysts and hyperdense renal renal lesions bilater ally, several of which are new or larger since the prior study. Thoracic bones: Minimally displaced left lateral ninth rib fracture. IMPRESSION: Minimally displaced left ninth lateral rib fracture. Otherwise no acute finding in the chest. Multiple indeterminate density bilateral renal lesions, recommend nonemergent but timely MRI or CT of the kidneys without and with contrast for further evaluation. Reviewed, dictated and finalized at location K. UER MAKER IMPRESSION: Minimally displaced left ninth lateral rib fracture. Otherwise no acute finding in the chest. Multiple indeterminate density bilateral renal lesions, recommend nonemergent b ut timely MRI or CT of the kidneys without and with contrast for further evalua tion.
[2023-11-26 13:09] VITALS: BP 176/85; PULSE 71; RESP 16; TEMP 37; O2SAT 100
--- NOTE | 2023-11-26 13:23 | ED.GENADULT ---
HPI - General Adult General Chief complaint: Recheck/Abnormal Lab/Rx Stated complaint: requesting xray to verify broken rib Time Seen by Provider: 11/26/23 13:20 History of Present Illness HPI narrative: Patient is an 83-year-old male with history of pacemaker in place, CKD stage 3 here with left-sided chest wall pain after a fall. He states that on 11/23 he was in his garage and tripped over a rug. He states that he tried is stabilized himself by pushing off of his car but then hit his left chest wall on the corner of a wooden box. He noted immediate pain. He went to an urgent care and an x-ray was performed, this x-ray results were sent to his primary care doctor. There was concern for a rib fracture. He denies any difficulty breathing since his accident. He notes no pain at rest but does have some pain with movement and twisting his chest. He has been taking some Tylenol at home which seems to significantly help with the pain. His primary care doctor contacted him today regarding the x-ray and told him he should come into the emergency department for evaluation and possible repeat x-ray to confirm rib fracture. No blood thinner use. Related Data Home Medications Medication Instructions Recorded Confirmed hydroxychloroquine 200 mg tablet 200 mg PO BID 07/27/20 09/21/23 amlodipine 10 mg tablet 10 mg PO DAILY 08/19/21 09/21/23 gabapentin 100 mg capsule 300 mg PO BID 08/19/21 09/21/23 mirabegron 25 mg tablet,extended 25 mg PO DAILY 11/16/22 09/21/23 release 24 hr (Myrbetriq) doxycycline hyclate 100 mg capsule 100 mg PO DAILY 05/12/23 09/21/23 fluticasone fur. 100 mcg-umeclid 1 inh inhalation DAILY 05/12/23 09/21/23 62.5 mcg-vilant 25 mcg inhalat.powder (Trelegy Ellipta) methylprednisolone 4 mg tablets in 4 mg PO DAILY 05/12/23 09/21/23 a dose pack Allergies Allergy/AdvReac Type Severity Reaction Status Date / Time No Known Allergies Allergy Verified 11/26/23 13:36 Review of Systems Review of Systems: All systems reviewed & are unremarkable except as noted in HPI and below PMFSH Past Medical History Medical History Bilateral carotid artery stenosis 50 to 69% stenosis on the right and greater than 70% stenosis on the left BMI 29.0-29.9,adult CKD (chronic kidney disease) Stage III managed by Dr. Quintin Downey COPD exacerbation COVID Erythropoietin deficiency anemia Essential hypertension HTN (hypertension) Lupus (systemic lupus erythematosus) Monoclonal gammopathy Obstructive sleep apnea With nasal CPAP use Orthostasis Peripheral artery disease With moderately decreased ABIs bilaterally December 2011 Prostate cancer Managed by Dr. Elizalde Rectus diastasis Sjogrens syndrome Spinal stenosis at L4-L5 level Surgical History Surgical History History of right inguinal hernia repair History of total bilateral knee replacement With the right knee being replaced once in the left knee being replaced 3 times with chronic left knee pain Family History Family History Mother Cirrhosis Sibling Esophageal cancer Father Acute myocardial infarction Lung disease Heart disease Sibling Esophageal cancer Skin cancer Social History Social History Social History: The patient has had on and off tobacco use history. According to prior documentation the patient had smoked up until 1998 and quit in the patient started smoking again about 10 years ago. He lives in has 2 children. Code status: Full code Healthcare power of seo professional: Linda Frank () Smoking packs per day: 0.5 Smoking cigarettes per day: 10.0 Years smoked: 10 Smoking pack-years: 5.00 Smoking status: Current every day smoker Tobacco type: cigarettes Seco
[2023-11-26] MEDS: LIDOCAINE 5% PATCH 1 PATCH TRANSDERM (14:30)
[2023-11-26 15:28] VITALS: BP 159/70; PULSE 71; RESP 16; O2SAT 96
[2023-11-26 16:07] VITALS: BP 166/84; PULSE 69; RESP 16; TEMP 36.9; O2SAT 100
== END 2023-11-26 16:12 | disposition home or self-care (01) ==
PROVIDERS: Emergency Provider Student in an Organized Health Care Education/Training Program; PCP Family Medicine
DX: S22.32XA Fracture of one rib, left side, initial encounter for closed fracture (principal); N28.89 Other specified disorders of kidney and ureter; I12.9 Hypertensive chronic kidney disease with stage 1 through stage 4 chronic kidney disease, or unspecified chronic kidney disease; N18.30 Chronic kidney disease, stage 3 unspecified; D63.1 Anemia in chronic kidney disease; J44.9 Chronic obstructive pulmonary disease, unspecified; I73.9 Peripheral vascular disease, unspecified; M32.9 Systemic lupus erythematosus, unspecified; M35.00 Sjogren syndrome, unspecified; D47.2 Monoclonal gammopathy; G47.33 Obstructive sleep apnea (adult) (pediatric); F17.210 Nicotine dependence, cigarettes, uncomplicated; Z95.0 Presence of cardiac pacemaker; Z96.653 Presence of artificial knee joint, bilateral; Z86.16 Personal history of COVID-19; Z85.46 Personal history of malignant neoplasm of prostate; W18.09XA Striking against other object with subsequent fall, initial encounter
CPT/HCPCS: 71250; 99284; A9270

== ENCOUNTER 2023-12-11 09:52 | Emergency (ER) | payer OTHER, SELFPAY ==
[2023-12-11] VITALS (7 sets, daily range): BP systolic 151–174; BP diastolic 67–92; PULSE 69–73; RESP 14–20; TEMP 36.4–37.2; O2SAT 99–100
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
--- NOTE | 2023-12-11 09:57 | ECG_ITS ---
Measurements Intervals [place] Rate: 70 P: 158 VT: 325 QRS: -18 QRSD: 138 T: -20 QT: 437 QTc: 475 Interpretive Statements ELECTRONIC ATRIAL PACEMAKER RIGHT BUNDLE BRANCH BLOCK [120+ ms QRS DURATION, UPRIGHT V1, 40+ ms S IN I/aVL/V4/V5/V6] ABNORMAL ECG COMPARED TO ECG 07/27/2020 14:39:29 ATRIUM IS NOW PACED AND RIGHT BUNDLE BRANCH BLOCK IS DEMONSTRATED Electronically Signed On 12-11-2023 14:12:38 POULTRY HATCHERY SUPERVISOR by Thomas Brown M.D.
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
[2023-12-11 13:06] LABS: Basophils Absolute Auto 0.1 K/mm3 (0.0-0.1); Basophils Percent Auto 0.5 % (0.2-1.2); Eosinophils Percent Auto 0.1 % (0-4.4); Hematocrit 38.6 % (42.0-52.0); Hemoglobin 12.4 g/dL (14.0-18.0); Immature Granulocyte Absolute 0.09 K/mm3 (0.00-0.031); Immature Granulocyte Percent A 0.8 % (0-0.5); Lymphocytes Absolute Auto 0.81 K/mm3 (0.9-3.2); Lymphocytes Percent Auto 7.3 % (18.3-44.2); Mean Corpuscular HGB Conc 32.1 g/dl (32-36); Mean Corpuscular Hemoglobin 31.9 pg (26-34); Mean Corpuscular Volume 99.2 fl (80-100); Mean Platelet Volume 9.6 fl (7.4-10.4); Monocytes Absolute Auto 0.8 K/mm3 (0.1-0.6); Monocytes Percent Auto 6.8 % (2.6-8.5); Neutrophils Absolute Auto 9.3 K/mm3 (1.3-6.7); Neutrophils Percent Auto 84.5 % (45.5-73.1); Platelet Count Result 224 k/mm3 (150-375); Red Blood Count 3.89 M/mm3 (4.6-6.20); Red Cell Distribution Width 13.1 % (11.5-14.5); White Blood Count 11.1 K/mm3 (4.5-10.0)
[2023-12-11 13:20] LABS: Alanine Aminotransferase 33 U/L (6-50); Albumin Level 4.3 g/dL (3.5-5.1); Alkaline Phosphatase 102 U/L (38-126); Anion Gap 11 mmol/L (8-16); Aspartate Amino Transferase 38 U/L (17-59); Blood Urea Nitrogen 48 mg/dL (9-20); Calcium 9.6 mg/dL (8.4-10.2); Carbon Dioxide 20 mmol/L (22-30); Chloride 111 mmol/L (98-107); Estimated CRCL calculation 17 ml/min; Estimated Glomerular Filt Rate 21; Glucose 92 mg/dL (65-110); Potassium 4.9 mmol/L (3.4-5.0); Sodium 142 mmol/L (137-145)
[2023-12-11 13:22] LABS: Prothrombin Time 13.6 Seconds (11.1-14.7)
[2023-12-11 13:24] LABS: Partial Thromboplastin Time 27.7 SECONDS (22.3-36.8)
[2023-12-11 13:27] LABS: Troponin I < 0.012 ng/mL (0.000-0.034)
[2023-12-11] MEDS: SODIUM CHLORIDE 0.9% IV 1,000 ML 999 ML IV CONT (14:41)
[2023-12-11] MEDS: NICOTINE (*PBKC) 21 MG PATCH 1 PATCH TRANSDERM (15:59)
[2023-12-11] MEDS: ACETAMINOPHEN 500 MG TABLET 1000 MG PO (15:59)
--- NOTE | 2023-12-11 19:36 | PC.NURSE ---
Report received from SANCHEZ Reagan. Assumed care of patient at this time. Family in room with patient.
--- NOTE | 2023-12-11 22:02 | PC.NURSE ---
Patient ambulated to the bathroom with a steady gait and back to his room. Patient given fruit cup and repositioned. Patient family still at bedside.
[2023-12-11] MEDS: METOPROLOL SUCCINATE EXT REL 50 MG TABCR PO (23:30)
[2023-12-11] MEDS: GABAPENTIN 300 MG CAPSULE PO (23:30)
--- NOTE | 2023-12-12 00:03 | PC.NURSE ---
Patient readjusted in bed and given pillow. Family remain at bedside.
--- NOTE | 2023-12-12 00:11 | PC.NURSE ---
Patients family member Mallory states she is leaving for now and leaves a cell number of [phone]. She says to call with updates or for any change.
[2023-12-12 02:29] VITALS: BP 174/72; PULSE 70; RESP 17; O2SAT 99
== END 2023-12-12 03:28 | disposition short-term general hospital (02) ==
PROVIDERS: Emergency Provider Physician Assistant; PCP Family Medicine
DX: S22.20XA Unspecified fracture of sternum, initial encounter for closed fracture (principal); I12.9 Hypertensive chronic kidney disease with stage 1 through stage 4 chronic kidney disease, or unspecified chronic kidney disease; N18.30 Chronic kidney disease, stage 3 unspecified; D63.1 Anemia in chronic kidney disease; J44.9 Chronic obstructive pulmonary disease, unspecified; I65.23 Occlusion and stenosis of bilateral carotid arteries; I73.9 Peripheral vascular disease, unspecified; M32.9 Systemic lupus erythematosus, unspecified; M35.00 Sjogren syndrome, unspecified; G47.33 Obstructive sleep apnea (adult) (pediatric); D47.2 Monoclonal gammopathy; F17.210 Nicotine dependence, cigarettes, uncomplicated; Z95.0 Presence of cardiac pacemaker; Z96.653 Presence of artificial knee joint, bilateral; Z86.16 Personal history of COVID-19; I45.10 Unspecified right bundle-branch block; N28.1 Cyst of kidney, acquired; M47.812 Spondylosis without myelopathy or radiculopathy, cervical region; R93.41 Abnormal radiologic findings on diagnostic imaging of renal pelvis, ureter, or bladder; V49.40XA Driver injured in collision with unspecified motor vehicles in traffic accident, initial encounter
CPT/HCPCS: 36415; 70450; 71046; 71250; 72125; 74176; 80053; 84484; 85025; 85610; 85730; 93005; 96360; 96361; 99285; A9270; J7030

== ENCOUNTER 2024-01-31 19:27 | Emergency (ER) | payer OTHER, SELFPAY ==
--- NOTE | ~2024-01-31 | CT_ITS ---
EXAMINATION: CT abdomen pelvis wo con DATE: 01/31/2024 22:42 INDICATION: Left inguinal bulge. Constipation. TECHNIQUE: Computed tomography (CT) of the abdomen and pelvis was performed without intravenous contr ast. The dose-length product was 516.10 mGy-cm. Automated exposure control and iterative reconstructi on technique were employed. COMPARISON: CT dated 12/11/2023 FINDINGS: There are bilateral inguinal hernias containing nonobstructed small bowel on the right and nonobstructed colon on the left. Lung bases unremarkable. Heart size normal. No significant pleural or pericardial effusion. There are multiple bilateral mixed density masses of the kidneys, many of which are likely proteinaceous or he morrhagic cyst. These are likely acquired cystic, although solid neoplasm is not excluded. There is a left adrenal mass which is low density measuring 2.1 cm, consistent with adenoma. There is an exophy tic liver cyst. The spleen, pancreas and right adrenal gland are unremarkable. Nonobstructive bowel p attern. Bladder is unremarkable. There are changes of prostatectomy. Moderate lower thoracic and lumb ar spondylosis with grade 1 degenerative spondylolisthesis at L5-S1. IMPRESSION: 1. Bilateral inguinal hernias containing nonobstructed bowel. 2: Multiple low density and high density masses of the kidneys, most likely acquired polycystic kidne y disease. Solid renal mass not excluded. Reviewed, dictated and finalized at location A. IMPRESSION: 1. Bilateral inguinal hernias containing nonobstructed bowel. 2: Multiple low density and high density masses of the kidneys, most likely acq uired polycystic kidney disease. Solid renal mass not excluded.
[2024-01-31 19:33] VITALS: BP 148/92; PULSE 70; RESP 17; TEMP 36.5; O2SAT 99
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
[2024-01-31 22:02] LABS: Basophils Percent Auto 0.6 % (0.2-1.2); Hematocrit 33.7 % (42.0-52.0); Hemoglobin 10.7 g/dL (14.0-18.0); Immature Granulocyte Absolute 0.03 K/mm3 (0.00-0.031); Immature Granulocyte Percent A 0.4 % (0-0.5); Lymphocytes Absolute Auto 1.19 K/mm3 (0.9-3.2); Lymphocytes Percent Auto 17.2 % (18.3-44.2); Mean Corpuscular HGB Conc 31.8 g/dl (32-36); Mean Corpuscular Hemoglobin 32.4 pg (26-34); Mean Corpuscular Volume 102.1 fl (80-100); Mean Platelet Volume 9.7 fl (7.4-10.4); Monocytes Absolute Auto 0.8 K/mm3 (0.1-0.6); Neutrophils Absolute Auto 4.8 K/mm3 (1.3-6.7); Neutrophils Percent Auto 69.8 % (45.5-73.1); Platelet Count Result 243 k/mm3 (150-375); Red Cell Distribution Width 13.9 % (11.5-14.5); White Blood Count 6.9 K/mm3 (4.5-10.0)
[2024-01-31 22:09] LABS: Appearance Urine Clear (Clear); Bacteria Urine None Seen /hpf; Bilirubin Urine Negative (Negative); Blood Urine Negative (Negative); Color Urine Yellow (Yellow); Glucose Urine UA Negative (Negative); Ketones Urine Negative (Negative); Leukocyte Esterase Ur Negative LEU/UL (Negative); Nitrate Urine Negative (Negative); Non Pathogenic Casts 0-2; Protein Urine 2+ mg/dL (Negative); RBC Urine 0-2 /hpf (0-2); Specific Grav Ur 1.013 (1.001-1.035); Squamous Epithelial Cell Urine None Seen /hpf (Few); Urobilinogen Urine 0.2 mg/dL (<2.0); WBC Urine 0-5 /hpf (0-3); pH Urine 5.5 (5.0-9.0)
[2024-01-31 22:15] LABS: Add Urine Microscopic? YES
[2024-01-31 22:23] LABS: Alanine Aminotransferase 19 U/L (6-50); Albumin Level 4.2 g/dL (3.5-5.1); Alkaline Phosphatase 89 U/L (38-126); Anion Gap 11 mmol/L (4-12); Aspartate Amino Transferase 26 U/L (17-59); Bilirubin,Total 0.5 mg/dL (0.2-1.3); Blood Urea Nitrogen 56 mg/dL (9-20); Calcium 9.2 mg/dL (8.4-10.2); Carbon Dioxide 18 mmol/L (22-30); Chloride 113 mmol/L (98-107); Estimated CRCL calculation 14 ml/min; Estimated Glomerular Filt Rate 17; Glucose 93 mg/dL (65-110); Sodium 142 mmol/L (137-145)
[2024-01-31 22:25] VITALS: BP 142/85; PULSE 82; RESP 17; O2SAT 98
[2024-01-31] MEDS: SODIUM CHLORIDE 0.9% IV 1,000 ML 999 ML IV CONT (22:46)
[2024-01-31 23:19] VITALS: BP 139/82; PULSE 80; RESP 16; O2SAT 97
--- NOTE | 2024-02-09 22:48 | PC.NURSE ---
Normal saline was stopped 01/31/24 at 2320
== END 2024-01-31 23:21 | disposition home or self-care (01) ==
PROVIDERS: Emergency Provider Physician Assistant; PCP Family Medicine
DX: K40.21 Bilateral inguinal hernia, without obstruction or gangrene, recurrent (principal); I12.9 Hypertensive chronic kidney disease with stage 1 through stage 4 chronic kidney disease, or unspecified chronic kidney disease; N18.30 Chronic kidney disease, stage 3 unspecified; D63.1 Anemia in chronic kidney disease; I73.9 Peripheral vascular disease, unspecified; I65.23 Occlusion and stenosis of bilateral carotid arteries; M32.9 Systemic lupus erythematosus, unspecified; D47.2 Monoclonal gammopathy; G47.33 Obstructive sleep apnea (adult) (pediatric); M35.00 Sjogren syndrome, unspecified; F17.210 Nicotine dependence, cigarettes, uncomplicated; Z96.653 Presence of artificial knee joint, bilateral; Z85.46 Personal history of malignant neoplasm of prostate; Z86.16 Personal history of COVID-19; Z79.82 Long term (current) use of aspirin
CPT/HCPCS: 36415; 74176; 80053; 81001; 85025; 96360; 99284; J7030

== ENCOUNTER 2024-03-01 11:56 | Outpatient (CLI) | payer OTHER, SELFPAY ==
[2024-03-01 13:39] LABS: INR 1.2; Partial Thromboplastin Time 31.2 Seconds (22.3-36.8); Prothrombin Time 15.2 Seconds (11.1-14.7)
== END 2024-03-01 11:57 | disposition home or self-care (01) ==
LOC: ANHSURGERY 12:01
PROVIDERS: Anesthesiology; PCP Family Medicine; Visit Provider Surgery
DX: N18.4 Chronic kidney disease, stage 4 (severe) (principal); Z01.818 Encounter for other preprocedural examination
CPT/HCPCS: 36415; 85610; 85730

== ENCOUNTER 2024-03-12 01:16 | Day surgery (SDC) | payer OTHER, SELFPAY ==
[2024-02-29 12:33] VITALS: BMI 28.0
--- NOTE | 2024-02-29 13:14 | PC.NURSE ---
Report to the Outpatient Waiting Room, entrance under the green pavilion located off [facility], at time __11:30AM on date __03/12/24 . Planned Procedure Time: __1:30PM . Time changes happen often and if your time is changed the preop area will call you the afternoon before. - You and your visitor will be asked to self-screen and do not enter if you have any COVID symptoms. - A mask is optional within the hospital at this time. Patients may have clear liquids (water, carbonated beverages, clear teas, apple juice) until 3 hours prior to surgery with a maximum of 20 ounces. - No food from midnight until time of surgery. Take the following medications with a SIP of water the morning of surgery: ___TRELEGY ELLIPTA, AMLODIPINE, ALPRAZOLAM, GABAPENTIN, METOPROLOL. MAY USE ALBUTEROL INHALER NEEDED. DO NOT STOP ANY OF YOUR OTHER PRESCRIPTION MEDICATIONS PRIOR TO SURGERY ?EXCEPT THE FOLLOWING Medications to discontinue per physician __HOLD ASPIRIN X2 WEEKS PER DR DOE(PER PATIENT) Date to take last dose___02/26/24 Please no make-up, nail anguillan, hairspray, perfume, deodorant, or body powder the day of surgery. No jewelry (including any body piercings) or valuables the day of surgery, leave them at home. Please take a shower or bath the night before, or the morning of, surgery with an antibacterial soap. Wear comfortable, loose fitting clothing. - Jewelry must be removed prior to entering the operating room. Rings and piercings that are not removed may be cut off. - The hospital will not accept responsibility for valuables. - Please leave all valuables, including medications, at home the day of surgery. If you are going home after surgery, a licensed vending route driver must drive you home. - NO public transportation without another adult if you receive anesthesia. - We recommend that an adult stay with you for 24 hours following discharge. - We also recommend that you do not drive, make important decision, drink alcoholic beverages, or take any drugs that were not prescribed by your health care provider for at least 24 hours after your discharge time. Follow any additional instructions given to you from your surgeon. If you or anyone in your household have experienced Covid symptoms in the past week, please notify your surgeon or the nurse liaison at the phone number below for possible testing. Telephone instructions given to __PATIENT & WIFE and asked if any additional questions and then verbalized understanding. Patient advised to call surgeon office or pre surgery nurse liaison [phone] if any additional questions.
[2024-03-12] VITALS (12 sets, daily range): BP systolic 134–153; BP diastolic 58–78; PULSE 68–71; RESP 14–18; TEMP 35.8–36.5; O2SAT 92–100
[2024-03-12] MEDS: LACTATED RINGERS 1,000 ML 30 ML IV CONT ×2 (10:49→14:00)
[2024-03-12] MEDS: ACETAMINOPHEN 500 MG TABLET 1000 MG PO (10:52)
--- NOTE | 2024-03-12 11:17 | WPDHPUPDATE1 ---
History and Physical Update Update Date/Time: 03/12/24 11:17 History and Physical has been reviewed, including an updated exam of the patient. There are NO changes in the patient's condition. Risks, benefits, and alternatives have been discussed and questions answered. Patient agrees to proceed with procedure.
--- NOTE | 2024-03-12 11:18 | PM.IMHP ---
H&P: HPI History of Present Illness Date/Time: 03/12/24 11:18 Chief Complaint: Bilateral inguinal hernia Narrative: 83 yo man presents for open recurrent right inguinal hernia repair and open left inguinal hernia repair. He reports no changes since last seen in office. Review of Systems Review of Systems: All systems reviewed & are unremarkable except as noted in HPI and below Constitutional: Constitutional: Denies chills, Denies fever(s), Denies headache(s) and Denies weight loss Eyes: Eyes: Denies change in vision ENT: Denies dizziness, Denies headache(s), Denies neck mass and Denies throat swelling Cardiovascular: Cardiovascular: Denies chest pain, Denies lightheadedness and Denies dyspnea Respiratory: Respiratory: Denies cough, Denies dyspnea and Denies wheezing Gastrointestinal: Gastrointestinal: Denies abdominal pain, Denies change in bowel habits, Denies nausea and Denies vomiting Genitourinary: Genitourinary: Denies hematuria and Denies dysuria Musculoskeletal: Musculoskeletal: Reports as per HPI Integumentary/Breasts: Skin/Breast: Reports as per HPI Neurologic: Denies dizziness and Denies headache(s) Allergic/Immunologic: Allergic/Immunologic: Denies throat swelling and Denies wheezing PMF Past Medical History Medical History Bilateral carotid artery stenosis 50 to 69% stenosis on the right and greater than 70% stenosis on the left BMI 27.0-27.9,adult BMI 29.0-29.9,adult CKD (chronic kidney disease) Stage III managed [address] Dr. Quintin Downey COPD exacerbation COVID Erythropoietin deficiency anemia Essential hypertension HTN (hypertension) Lupus (systemic lupus erythematosus) Monoclonal gammopathy Obstructive sleep apnea With nasal CPAP use Orthostasis Peripheral artery disease With moderately decreased ABIs bilaterally December 2011 Prostate cancer Managed by Dr. Elizalde Rectus diastasis Sjogrens syndrome Spinal stenosis at L4-L5 level Surgical History Surgical History History of permanent cardiac pacemaker placement History of right inguinal hernia repair 2016, previous repair of mesh failure History of total bilateral knee replacement With the right knee being replaced once in the left knee being replaced 3 times with chronic left knee pain Hx of left inguinal hernia repair 2016, repair of mesh failure Family History Family History Mother Cirrhosis Sibling Esophageal cancer Father Acute myocardial infarction Lung disease Heart disease Sibling Esophageal cancer Skin cancer Social History Social History Social History: The patient has had on and off tobacco use history. According to prior documentation the patient had smoked up until 1998 and quit in evidently the patient started smoking again about 10 years ago. He lives in has 2 children. Code status: Full code Healthcare power of business attorney: Linda Frank () Smoking packs per day: 1 Smoking cigarettes per day: 20.0 Years smoked: 65 Smoking pack-years: 65.00 Smoking status: Current every day smoker Tobacco type: cigarettes Second hand tobacco smoke exposure: Yes Additional smoking assessment comments: SMOKING 0.5 PACK/DAY CURRENTLY Alcohol intake: current Substance use: never Substance use type: does not use Do You Feel Safe in your Home?: Yes Lack of Transportation: No Lack of Food: Never True Current Housing: I Have Housing Concerned About Future Housing: No Difficulty Paying Gas/Electric Bills: No Difficulty Paying for Meds: No Currently Unemployed: No Education: High School Diploma/GED Difficulty w/ Childcare or Family Care: No Living arrangements: with family Additional living arrangements comme
--- NOTE | 2024-03-12 11:26 | WPDANESEPPF ---
Anes - Initial Pre Proc Eval Procedure: Operation Date: 03/12/24 12:00 Proposed Procedures p Open Right Recurrent Inguinal Hernia Repair with Mesh, Open Left Inguinal Hernia Repair with Mesh - Aly Waldrop DO Date/Time: 03/12/24 11:26 Surgeon: Aly Waldrop DO Pre Op Diagnosis: recurr right inguinal hernia, initial left inguin Patient Data Age: 83 Gender: M Height: 1.68 m Weight: 77.2 kg Last Vital Signs Temp 97.1 F L 03/12/24 10:55 Pulse 71 03/12/24 10:55 Resp 18 03/12/24 10:55 BP 142/65 H 03/12/24 10:55 Pulse Ox 97 03/12/24 10:55 O2 Del Method Room Air 03/12/24 10:55 Allergies Allergy/AdvReac Type Severity Reaction Status Date / Time No Known Allergies Allergy Verified 03/12/24 11:07 Home Medications Medication Instructions Recorded Confirmed Type hydroxychloroquine 200 mg tablet 200 mg PO BID 07/27/20 03/12/24 History amlodipine 10 mg tablet 10 mg PO QAM 08/19/21 03/12/24 History gabapentin 100 mg capsule 300 mg PO BID 08/19/21 03/12/24 History sodium bicarbonate 650 mg tablet 650 mg PO BID #180 tabs 05/30/23 03/12/24 Rx simvastatin 10 mg tablet See Rx Instructions .Route 08/02/23 03/12/24 Rx .COMPLEX #90 tabs albuterol sulfate 90 mcg/actuation 1 puff inhalation Q4H PRN 12/22/23 03/12/24 History aerosol inhaler (ProAir HFA) Shortness Of Breath Or Wheezing aspirin 81 mg tablet,delayed 81 mg PO DAILY 12/22/23 03/12/24 History release (Adult Low Dose Aspirin) fluticasone fur. 100 mcg-umeclid 1 inh inhalation .QD 12/22/23 03/12/24 History 62.5 mcg-vilant 25 mcg inhalat.powder (Trelegy Ellipta) famotidine 40 mg tablet See Rx Instructions .Route 12/26/23 03/12/24 Rx .COMPLEX #30 tabs metoprolol succinate 100 mg 100 mg PO QAM 01/04/24 03/12/24 History tablet,extended release 24 hr ferrous sulfate 325 mg (65 mg 325 mg PO DAILY 01/25/24 03/12/24 History iron) tablet irbesartan 150 mg tablet 150 mg PO BID #180 tabs 02/17/24 03/12/24 Rx alprazolam 0.25 mg tablet 0.25 mg PO BID #60 tabs 02/18/24 03/12/24 Rx montelukast 10 mg tablet 10 mg PO HS 02/29/24 03/12/24 History Patient hx anesthesia problems: none Family hx anesthesia problems: none Results Review: All pre-operative results and documents have been reviewed as part of the pre-operative evaluation. [facility] Past Medical History Medical History Bilateral carotid artery stenosis 50 to 69% stenosis on the right and greater than 70% stenosis on the left BMI 27.0-27.9,adult BMI 29.0-29.9,adult CKD (chronic kidney disease) Stage III [address] Quintin Downey COPD exacerbation COVID Erythropoietin deficiency anemia Essential hypertension HTN (hypertension) Lupus (systemic lupus erythematosus) Monoclonal gammopathy Obstructive sleep apnea With nasal CPAP use Orthostasis Peripheral artery disease With moderately decreased ABIs bilaterally December 2011 Prostate cancer Managed by Dr. Elizalde Rectus diastasis Sjogrens syndrome Spinal stenosis at L4-L5 level Surgical History Surgical History History of permanent cardiac pacemaker placement History of right inguinal hernia repair 2016, previous repair of mesh failure History of total bilateral knee replacement With the right knee being replaced once in the left knee being replaced 3 times with chronic left knee pain Hx of left inguinal hernia repair 2016, repair of mesh failure Family History Family History Mother Cirrhosis Sibling Esophageal cancer Father Acute myocardial infarction Lung disease Heart disease Sibling Esophageal cancer Skin cancer Social History Social History Social History: The patient has had on and off tobacco use h
[2024-03-12] MEDS: ceFAZolin 2 GM/D5W 50 ML 2 GM/50 ML BAG IVPB (11:58)
[2024-03-12] MEDS: BUPIVACAINE/EPINEPHRINE 0.5% 10 ML VIAL 60 ML INFILTRATE (12:22)
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
[2024-03-12] MEDS: fentaNYL CITRATE INJ (*CRX) 100 MCG/2 ML VIAL 25 MCG IV PUSH ×4 (14:33→14:58)
--- NOTE | 2024-03-12 15:14 | ADMGEN ---
This patient, Abdirizak Frank, was admitted to 2 Medical Room 256-01. Patient/family oriented to hospital policies and general routines including ID bracelet, bed and alarms, visiting hours, pain management, procedures, bathroom and other care routines, personal items, smoking policy, room service/diet, and visiting hours. Information on how to activate the Rapid Response Team has been discussed. Patient/Family are encouraged to report perceived risks to care and to ask questions if they do not understand what they are told or what they should do.
[2024-03-12] MEDS: LACTATED RINGERS 1,000 ML 100 ML IV CONT (15:49)
[2024-03-12] MEDS: GABAPENTIN 300 MG CAPSULE PO (17:30)
[2024-03-12] MEDS: NICOTINE (*PBKC) 14 MG PATCH 1 PATCH TRANSDERM (17:30)
[2024-03-12] MEDS: HYDROXYCHLOROQUINE SULFATE 200 MG TABLET PO (17:31)
[2024-03-12] MEDS: SODIUM BICARBONATE TAB 650 MG TABLET PO (17:31)
[2024-03-12] MEDS: IRBESARTAN 150 MG TABLET PO (17:31)
[2024-03-12] MEDS: ALPRAZolam (*CRX) 0.25 MG TABLET PO (17:31)
[2024-03-12] MEDS: MONTELUKAST SODIUM 10 MG TABLET PO (20:58)
[2024-03-12] MEDS: HYDROcodone/acetaminophen (*CRX) 7.5-325 MG TABLET 1 TAB PO (20:59)
[2024-03-13 00:49] VITALS: BP 168/65; PULSE 70; RESP 18; TEMP 36.1; O2SAT 97
[2024-03-13] MEDS: HYDROcodone/acetaminophen (*CRX) 7.5-325 MG TABLET 1 TAB PO (03:37)
[2024-03-13 05:00] VITALS: BP 162/64; PULSE 70; RESP 18; TEMP 36.6; O2SAT 97
[2024-03-13 06:21] LABS: Hematocrit 33.5 % (42.0-52.0); Hemoglobin 10.9 g/dL (14.0-18.0); Mean Corpuscular HGB Conc 32.5 g/dl (32-36); Mean Corpuscular Hemoglobin 33.1 pg (26-34); Mean Corpuscular Volume 101.8 fl (80-100); Mean Platelet Volume 9.8 fl (7.4-10.4); Platelet Count Result 192 k/mm3 (150-375); Red Blood Count 3.29 M/mm3 (4.6-6.20); Red Cell Distribution Width 12.7 % (11.5-14.5); White Blood Count 16.2 K/mm3 (4.5-10.0)
[2024-03-13 06:33] LABS: Anion Gap 9 mmol/L (4-12); Blood Urea Nitrogen 47 mg/dL (9-20); Calcium 8.8 mg/dL (8.4-10.2); Carbon Dioxide 19 mmol/L (22-30); Chloride 112 mmol/L (98-107); Estimated CRCL calculation 18 ml/min; Estimated Glomerular Filt Rate 23; Glucose 124 mg/dL (65-110); Potassium 4.5 mmol/L (3.4-5.0); Sodium 140 mmol/L (137-145)
[2024-03-13 08:44] VITALS: BP 159/66; PULSE 70; RESP 18; TEMP 36.4; O2SAT 98
[2024-03-13 08:57] VITALS: PULSE 80
[2024-03-13] MEDS: METOPROLOL SUCCINATE EXT REL 100 MG TABCR PO (08:57)
[2024-03-13] MEDS: ASPIRIN 81 MG ENTERIC TABLET PO (08:59)
[2024-03-13] MEDS: ALPRAZolam (*CRX) 0.25 MG TABLET PO (08:59)
[2024-03-13] MEDS: amLODIPine BESYLATE 5 MG TABLET 10 MG PO (08:59)
[2024-03-13] MEDS: FAMOTIDINE 20 MG TABLET 40 MG PO (08:59)
[2024-03-13] MEDS: HYDROXYCHLOROQUINE SULFATE 200 MG TABLET PO (08:59)
[2024-03-13] MEDS: GABAPENTIN 300 MG CAPSULE PO (08:59)
[2024-03-13] MEDS: IRBESARTAN 150 MG TABLET PO (08:59)
[2024-03-13] MEDS: SODIUM BICARBONATE TAB 650 MG TABLET PO (08:59)
[2024-03-13] MEDS: ENOXAPARIN 30 MG/0.3 ML SYRINGE SUB-Q (09:05)
[2024-03-13] MEDS: SIMVASTATIN 10 MG TABLET PO (09:05)
[2024-03-13 09:49] VITALS: O2SAT 94
[2024-03-13] MEDS: FLUTICASONE/UMECLIDIN/VILANTER 100-62.5-25 MCG ELLIPTA 1 PUFF INHALATION (10:09)
--- NOTE | 2024-03-13 10:48 | PM.PNGS ---
Progress Note: A&P Assessment and Plan (1) Recurrent inguinal hernia without obstruction or gangrene: Qualifiers: Laterality: bilateral Qualified Code(s): K40.21 - Bilateral inguinal hernia, without obstruction or gangrene, recurrent Code(s): K40.91 - Unilateral inguinal hernia, without obstruction or gangrene, recurrent Status: Acute Assessment and Plan: Doing well on POD#1. Will discharge home today. Discussed discharge instructions with patient. Follow up in office in 2 weeks. (2) Tobacco abuse: Code(s): Z72.0 - Tobacco use Status: Acute (3) Essential (primary) hypertension: Code(s): I10 - Essential (primary) hypertension Status: Acute (4) CKD (chronic kidney disease): Qualifiers: Chronic kidney disease stage: unspecified stage Qualified Code(s): N18.9 - Chronic kidney disease, unspecified Code(s): N18.9 - Chronic kidney disease, unspecified Status: Acute (5) Obstructive sleep apnea: Code(s): G47.33 - Obstructive sleep apnea (adult) (pediatric) Status: Acute (6) Bilateral carotid artery stenosis: Code(s): I65.23 - Occlusion and stenosis of bilateral carotid arteries Status: Acute Subjective Subjective Date/Time Seen: 03/13/24 10:48 Interval history: Doing well today. Voiding without difficulty. Pain controlled. Ambulating. Tolerating diet. Exam : Other: Inguinal incisions healing well. Intact with glue. No swelling or sign of recurrent hernia. Objective Data Vital Signs Vital Signs: Vital Signs - 24 hr 03/12/24 10:55 03/12/24 14:00 03/12/24 14:15 Temperature 36.2 C L 36.4 C Pulse Rate 71 70 70 Respiratory Rate 18 15 14 Blood Pressure 142/65 H 135/63 138/67 Pulse Oximetry 97 100 100 Oxygen Delivery Room Air Simple Face Mask Simple Face Mask Oxygen Flow Rate 8 8 03/12/24 14:30 03/12/24 14:45 03/12/24 15:00 Temperature Pulse Rate 70 70 70 Respiratory Rate 16 14 18 Blood Pressure 140/68 134/65 137/64 Pulse Oximetry 97 92 95 Oxygen Delivery Room Air Room Air Room Air Oxygen Flow Rate 03/12/24 15:20 03/12/24 15:34 03/12/24 16:05 Temperature 36.2 C L 36.1 C L 35.8 C L Pulse Rate 70 70 71 Respiratory Rate 17 17 16 Blood Pressure 148/78 H 151/62 H 153/66 H Pulse Oximetry 95 96 100 Oxygen Delivery Oxygen Flow Rate 03/12/24 17:05 03/12/24 20:49 03/12/24 20:00 Temperature 35.8 C L 36.5 C Pulse Rate 70 70 68 Respiratory Rate 16 16 16 Blood Pressure 150/58 H 145/68 H Pulse Oximetry 99 98 98 Oxygen Delivery CPAP Oxygen Flow Rate 03/13/24 00:49 03/13/24 05:00 03/13/24 08:44 Temperature 36.1 C L 36.6 C 36.4 C Pulse Rate 70 70 70 Respiratory Rate 18 18 18 Blood Pressure 168/65 H 162/64 H 159/66 H Pulse Oximetry 97 97 98 Oxygen Delivery Oxygen Flow Rate 03/13/24 08:57 03/13/24 09:49 Temperature Pulse Rate 80 Respiratory Rate Blood Pressure Pulse Oximetry 94 Oxygen Delivery Room Air Oxygen Flow Rate Intake/Output Intake/Output: Intake & Output 03/10/24 03/11/24 03/12/24 03/13/24 23:59 23:59 23:59 23:59 Intake Total 760 640 Output Total 200 1200 Balance 560 -560 Meds/Results Medications: Active Medications Generic Name Dose Route Start Last Admin Trade Name Freq PRN Reason Stop Dose Admin Acetaminophen 500 mg 03/12/24 15:04 Acetaminophen 500 Mg Tablet PO Q6H PRN Pain Rated 1-3 Hydrocodone Bitart/Acetaminophen 1 tab 03/12/24 15:04 Hydrocodone/Acetaminophen (*Crx) 5-325 Mg Tablet PO Q4H PRN Pain Rated 4-6 Hydrocodone Bitart/Acetaminophen 1 tab 03/12/24 15:04 03/13/24 03:37 Hydrocodone/Acetaminophen (*Crx) 7.5-325 Mg Tablet PO 1 tab Q4H PRN Administration Pain Rated 7-10 Albuterol 1 puff 03/12/24 15:04 Albuterol Sulfate (*Sp) Aerosol 1 Puff INHALATION Q4H PRN Shortness Of Breath Or Wheezing Alprazolam 0.25 mg 03/12/24 17
== END 2024-03-13 11:50 | disposition home or self-care (01) ==
LOC: ANHSURGERY 10:02 → ANH2MED 15:13 → ANH3MED 22:42
PROVIDERS: PCP Family Medicine; Visit Provider Surgery
PROC: (CPT 49520; principal; 2024-03-12 12:00)
DX: K40.91 Unilateral inguinal hernia, without obstruction or gangrene, recurrent (principal); K40.90 Unilateral inguinal hernia, without obstruction or gangrene, not specified as recurrent; I12.9 Hypertensive chronic kidney disease with stage 1 through stage 4 chronic kidney disease, or unspecified chronic kidney disease; N18.30 Chronic kidney disease, stage 3 unspecified; M32.9 Systemic lupus erythematosus, unspecified; D47.2 Monoclonal gammopathy; G47.33 Obstructive sleep apnea (adult) (pediatric); I73.9 Peripheral vascular disease, unspecified; M35.00 Sjogren syndrome, unspecified; C61 Malignant neoplasm of prostate; Z95.0 Presence of cardiac pacemaker; F17.210 Nicotine dependence, cigarettes, uncomplicated; Z79.51 Long term (current) use of inhaled steroids; Z79.82 Long term (current) use of aspirin
CPT/HCPCS: 49520; 49505; 36415; 80048; 85027; 85610; 85730; 88300; 94640; A9270; C1781; J0690; J1100; J1650; J2405; J2704; J3010; J7120

== ENCOUNTER 2024-05-24 22:48 | Observation (INO) | payer OTHER, SELFPAY ==
--- NOTE | ~2024-05-24 | XR_ITS ---
Supine and upright views of the abdomen Clinical history: Constipation, nausea Findings: Bowel gas pattern is nonspecific. No evidence for obstruction or free air. No abnormal mass lesion or calcification is seen. Osseous structures are intact, aside from degenerative change of th e lumbar spine. Impression: Nonspecific bowel gas pattern. Reviewed, dictated and finalized at [facility]. Impression: Nonspecific bowel gas pattern.
--- NOTE | ~2024-05-24 | CT_ITS ---
Non-contrast CT scan of the Abdomen and Pelvis Clinical indication: Abdominal pain Technique: 2.5 mm axial scans were obtained through the abdomen and pelvis without intravenous or or al contrast. Dose reduction technique was used on this scan by utilizing automated exposure control a nd iterative reconstruction technique. The dose-length product (DLP) was 404.23 mGy-cm. COMPARISON: 01/31/2024. Findings: Images through the lung bases reveal with moderate bilateral pleural effusions with bibasi lar atelectasis. There is no evidence of renal or ureteral calculi. The kidneys and the ureters are nondilated. There are probable numerous bilateral simple and hyperdense renal cysts, though solid mass cannot be comple tely excluded. The liver, spleen, pancreas, gallbladder, and right adrenal gland appear normal. 2.1 cm left adrenal nodule present. There are atherosclerotic calcifications of the aorta. There is no evidence of bowel obstruction. Images through the pelvis were performed. There is no evidence of ascites or lymphadenopathy. Urinary bladder unremarkable. No pelvic mass seen. Impression: Moderate bilateral pleural effusions with bibasilar atelectasis. Numerous probable bilateral simple and hyperdense renal cysts, similar to prior exam. Solid renal mas s cannot be excluded on noncontrast CT. Pre and postcontrast MR could be considered to best exclude a ny solid renal mass lesion. Stable 2.1 cm left adrenal nodule. Reviewed, dictated and finalized at [facility]. Impression: Moderate bilateral pleural effusions with bibasilar atelectasis. Numerous probable bilateral simple and hyperdense renal cysts, similar to prior exam. Solid renal mass cannot be excluded on noncontrast CT. Pre and postcontr ast MR could be considered to best exclude any solid renal mass lesion. Stable 2.1 cm left adrenal nodule.
[2024-05-24 23:04] VITALS: BP 153/68; PULSE 71; RESP 18; TEMP 36.1; O2SAT 97
[2024-05-25] VITALS (17 sets, daily range): BP systolic 120–164; BP diastolic 62–80; PULSE 69–88; RESP 14–25; TEMP 36.1–36.9; O2SAT 95–100; BMI 27.9
[2024-05-25 01:54] LABS: Basophils Percent Auto 0.5 % (0.2-1.2); Hematocrit 35.2 % (42.0-52.0); Hemoglobin 11.4 g/dL (14.0-18.0); Immature Granulocyte Absolute 0.06 K/mm3 (0.00-0.031); Immature Granulocyte Percent A 0.7 % (0-0.5); Lymphocytes Absolute Auto 1.12 K/mm3 (0.9-3.2); Lymphocytes Percent Auto 13.1 % (18.3-44.2); Mean Corpuscular HGB Conc 32.4 g/dl (32-36); Mean Corpuscular Hemoglobin 32.9 pg (26-34); Mean Corpuscular Volume 101.4 fl (80-100); Monocytes Absolute Auto 0.6 K/mm3 (0.1-0.6); Monocytes Percent Auto 7.1 % (2.6-8.5); Neutrophils Absolute Auto 6.7 K/mm3 (1.3-6.7); Neutrophils Percent Auto 78.6 % (45.5-73.1); Platelet Count Result 218 k/mm3 (150-375); Red Blood Count 3.47 M/mm3 (4.6-6.20); Red Cell Distribution Width 13.3 % (11.5-14.5); White Blood Count 8.6 K/mm3 (4.5-10.0)
[2024-05-25 02:04] LABS: Alanine Aminotransferase 23 U/L (6-50); Albumin Level 4.3 g/dL (3.5-5.1); Alkaline Phosphatase 93 U/L (38-126); Anion Gap 14 mmol/L (4-12); Aspartate Amino Transferase 28 U/L (17-59); Bilirubin,Total 0.9 mg/dL (0.2-1.3); Blood Urea Nitrogen 48 mg/dL (9-20); Calcium 9.3 mg/dL (8.4-10.2); Carbon Dioxide 17 mmol/L (22-30); Chloride 108 mmol/L (98-107); Estimated CRCL calculation 13 ml/min; Estimated Glomerular Filt Rate 15; Glucose 80 mg/dL (65-110); Lipase 81 U/L (23-300); Potassium 4.9 mmol/L (3.4-5.0); Sodium 139 mmol/L (137-145)
[2024-05-25] MEDS: SODIUM CHLORIDE 0.9% IV 1,000 ML 999 ML IV CONT (04:57)
[2024-05-25 05:36] LABS: Add Urine Microscopic? YES; Appearance Urine Clear (Clear); Bacteria Urine None Seen /hpf; Bilirubin Urine Negative (Negative); Blood Urine Negative (Negative); Color Urine Yellow (Yellow); Glucose Urine UA Negative (Negative); Ketones Urine Negative (Negative); Leukocyte Esterase Ur Negative LEU/UL (Negative); Nitrate Urine Negative (Negative); Non Pathogenic Casts 0-2; Protein Urine 1+ mg/dL (Negative); RBC Urine 0-2 /hpf (0-2); Specific Grav Ur 1.008 (1.001-1.035); Squamous Epithelial Cell Urine None Seen /hpf (Few); Urobilinogen Urine 0.2 mg/dL (<2.0); WBC Urine 0-5 /hpf (0-3); pH Urine 6.5 (5.0-9.0)
--- NOTE | 2024-05-25 06:17 | ED.GENADULT ---
HPI - General Adult General Chief complaint: Abdominal Pain Stated complaint: abd pain, constipation Time Seen by Provider: 05/25/24 04:10 History of Present Illness HPI narrative: Patient 83-year-old gentleman who presents emergency department chief complaint of abdominal discomfort and nausea. The patient reports he has has had decreased bowel movements and has had some abdominal distension. The patient reports that he has been weaker than normal denies diarrhea reports he has had the same amount of urine production. The patient did have bilateral hernia repairs recently and has history of chronic kidney disease Related Data Home Medications Medication Instructions Recorded Confirmed hydroxychloroquine 200 mg tablet 200 mg PO BID 07/27/20 04/08/24 amlodipine 10 mg tablet 10 mg PO QAM 08/19/21 04/08/24 albuterol sulfate 90 mcg/actuation 1 puff inhalation Q4H PRN 12/22/23 04/08/24 aerosol inhaler (ProAir HFA) Shortness Of Breath Or Wheezing fluticasone fur. 100 mcg-umeclid 1 inh inhalation .QD 12/22/23 04/08/24 62.5 mcg-vilant 25 mcg inhalat.powder (Trelegy Ellipta) metoprolol succinate 100 mg 100 mg PO QAM 01/04/24 04/08/24 tablet,extended release 24 hr ferrous sulfate 325 mg (65 mg 325 mg PO DAILY 01/25/24 04/08/24 iron) tablet montelukast 10 mg tablet 10 mg PO HS 02/29/24 04/08/24 gabapentin 100 mg capsule 300 mg PO TID 03/28/24 04/08/24 Allergies Allergy/AdvReac Type Severity Reaction Status Date / Time No Known Allergies Allergy Verified 05/24/24 23:12 Review of Systems Review of Systems: A 10 system review of systems was completed on the patient and is negative except for what is stated in the HPI. Nursing and ancillary documentation was reviewed. [facility] Past Medical History Medical History (Updated 05/25/24 @ 06:34 by Bart Rdz MD) Bilateral carotid artery stenosis 50 to 69% stenosis on the right and greater than 70% stenosis on the left CKD (chronic kidney disease) Stage III managed by Dr. Quintin Downey COPD exacerbation COVID Erythropoietin deficiency anemia Essential hypertension History of prostate cancer HTN (hypertension) Lupus (systemic lupus erythematosus) Monoclonal gammopathy Obstructive sleep apnea With nasal CPAP use Orthostasis Overactive bladder Peripheral artery disease With moderately decreased ABIs bilaterally December 2011 Rectus diastasis Screening for thyroid disorder Sjogrens syndrome Spinal stenosis at L4-L5 level Surgical History Surgical History H/O bilateral inguinal hernia repair pen reccurent RIH and open L ing. hernia rep w/ mesh 03/12/24 History of permanent cardiac pacemaker placement History of right inguinal hernia repair 2016, previous repair of mesh failure History of total bilateral knee replacement With the right knee being replaced once in the left knee being replaced 3 times with chronic left knee pain Hx of left inguinal hernia repair 2015, repair of mesh failure S/P bilateral inguinal hernia repair Family History Family History Mother Cirrhosis Sibling Esophageal cancer Father Acute myocardial infarction Lung disease Heart disease Sibling Esophageal cancer Skin cancer Social History Social History Social History: The patient has had on and off tobacco use history. According to prior documentation the patient had smoked up until 1998 and quit in evidently the patient started smoking again about 10 years ago. He lives in has 2 children. Code status: Full code Healthcare power of managing attorney: Linda Frank () Smoking packs per day: 1 Smoking cigarettes per day: 20.0 Years smoked: 65 Smoking pack-years: 65.00 Smoking status: Current every day smoker Second hand tobacco smoke e
--- NOTE | 2024-05-25 09:46 | ADMGEN ---
This patient, Abdirizak Frank, was admitted to 2 Medical Room 259-01. Patient/family oriented to hospital policies and general routines including ID bracelet, bed and alarms, visiting hours, pain management, procedures, bathroom and other care routines, personal items, smoking policy, room service/diet, and visiting hours. Information on how to activate the Rapid Response Team has been discussed. Patient/Family are encouraged to report perceived risks to care and to ask questions if they do not understand what they are told or what they should do.
--- NOTE | 2024-05-25 11:03 | PM.IMHP ---
H&P: HPI History of Present Illness Date/Time: 05/25/24 11:03 Chief Complaint: Nausea Narrative: 83yo male with prostate CA, CKD and multiple autoimmune disorders here for nausea. Patient had a recurrent right and a new left inguinal hernia and underwent surgical repair on 03/12/2024. Since that time, patient has been having constipation off and on. He has taken Colace 1 or 2 times in past few months but no regular bowel regiment. He has not discuss this with any provider. He has been straining at times can have BM. His last colonoscopy was 3 years ago and was clear. More recently over the past 2 weeks patient has been having bloating with nausea and vomiting. Abdominal pain was listed as presenting complaint in the ED but patient denies abdominal pain. Over the past 2 weeks, he has been having bowel movements about every 3 days. No melena or hematochezia. No hematemesis. His appetite has been poor. He has a history of prostate cancer with radiation treatment in 2017. Shortly thereafter, he has had frequent urinations with voiding every 1-2 hours. He has nocturia 3+ times a night. His does not think he drinks enough free water. Over the past 2 weeks, no dysuria or hematuria. Does state that his bladder does not feel empty after voiding. He does have CKD and is followed by Dr. Downey and saw him about 3 months ago. No fever, chills, headache, vision changes, hearing changes, odynophagia, dysphagia, chest pain, palpitations, back pain or falls. He does have occasional shortness of breath with exertion as well as coughing and wheezing at times but no significant change from his baseline. He continues to smoke half a pack a day. Patient also complains of generalized weakness. He presented to the emergency room for evaluation. In the emergency room, patient's vital signs were stable. White count and platelet count were normal. He had a mild macrocytic anemia. Potassium was normal. Serum bicarb was 17 with anion gap of 14. BUN 48 and creatinine 3.8. LFTs normal. Lipase normal. UA showed 1+ protein otherwise clear. CT of the abdomen and pelvis showed moderate bilateral pleural effusions with bibasilar atelectasis. He had numerous probably bilateral simple and hyperdense renal cysts similar to prior exam. Solid renal mass cannot be excluded. He has a stable 2.1 cm left adrenal nodule. Strauss catheter placed due to bladder distension and bladder scan showing 330 mL. Unclear on total volume post Strauss catheter placement. He was given a L of IV fluid and admitted for further care. Review of Systems Review of Systems: All systems reviewed & are unremarkable except as noted in HPI and below [facility] Past Medical History Medical History (Updated 05/25/24 @ 11:24 by Bart Spears MD) Bilateral carotid artery stenosis 50 to 69% stenosis on the right and greater than 70% stenosis on the left CKD (chronic kidney disease) Stage III managed by Dr. Quintin Downey COPD exacerbation COVID Erythropoietin deficiency anemia Essential hypertension History of prostate cancer HTN (hypertension) Lupus (systemic lupus erythematosus) Monoclonal gammopathy Obstructive sleep apnea With nasal CPAP use Orthostasis Overactive bladder Peripheral artery disease With moderately decreased ABIs bilaterally December 2011 Rectus diastasis Rheumatoid arthritis Screening for thyroid disorder Sjogrens syndrome Spinal stenosis at L4-L5 level Surgical History Surgical History H/O bilateral inguinal hernia repair pen reccurent RI and open L ing. hernia rep w/ mesh 03/12/24 History of permanent cardiac pacemaker placement History of right inguinal hernia repair 2016, previous repair of mesh failure History of total bilateral knee replacement With the right knee being replaced once in the left knee being replaced 3 times with chronic left knee pain Hx of left inguinal hernia repair
[2024-05-25] MEDS: ALPRAZolam (*CRX) 0.25 MG TABLET PO (11:39)
[2024-05-25] MEDS: SODIUM BICARBONATE TAB 650 MG TABLET PO ×2 (12:18→17:23)
[2024-05-25] MEDS: METOPROLOL SUCCINATE EXT REL 100 MG TABCR PO (12:18)
[2024-05-25] MEDS: TAMSULOSIN HCL 0.4 MG CAPSULE PO (12:18)
[2024-05-25] MEDS: SODIUM CHLORIDE 0.9% IV 1,000 ML 100 ML IV CONT (12:19)
[2024-05-25] MEDS: DOCUSATE SODIUM 100 MG CAPSULE PO ×2 (12:19→20:13)
--- NOTE | 2024-05-25 12:43 | WPDURCON ---
Assessment and Plan Assessment and plan (1) Acute urinary retention: Code(s): R33.8 - Other retention of urine Status: Acute Assessment and Plan: 330 cc on initial bladder scan. Escamilla catheter placed. Likely related to constipation. Will discontinue myrbetriq. Continue tamsulosin. Proceed with void trial pending improvement in constipation. (2) Renal cyst: Code(s): N28.1 - Cyst of kidney, acquired Status: Acute Assessment and Plan: CT showed bilateral renal cysts; solid renal mass not able to be excluded on noncontrast CT. He had a CT with/without contrast at [facility] in 02/2024 that was consistent with proteinaceous cyst. No need for further evaluation at this time. (3) Acute kidney injury superimposed on chronic kidney disease: Code(s): N17.9 - Acute kidney failure, unspecified; N18.9 - Chronic kidney disease, unspecified Status: Acute Assessment and Plan: Creatinine elevated to 3.8 today. Continue escamilla catheter for maximal urinary drainage and monitoring intake and output. Urology Consult Note HPI Date Seen: 05/25/24 Requesting Physician: Rosalba Westbrook DO Primary Care Provider: Vel Gilliam MD Consult Narrative Narrative: Abdirizak Frank is a 83 year old male with a history of prostate cancer s/p IMRT and androgen ablation in 2017 and overactive bladder who is currently admitted for acute kidney injury and is being seen in consultation for evaluation of urinary retention. The patient presented to the ER this morning with complaints of progressive abdominal bloating over the past 2 weeks. He has been dealing with constipation for some time and has not had a full bowel movement in some time. He also noticed decreased urine output and felt he was pushing and straining to void. He denies dysuria or hematuria. On arrival, his vital signs were stable, WBC 8.6, creatinine 3.8, and UA within normal limits. Bladder scan completed showed 330 cc and escamilla catheter was placed. CT of the abdomen/pelvis completed showed bilateral renal cysts with unremarkable bladder. At the time of my evaluation, the patient is feeling well. His abdominal bloating improved following escamilla placement. He continues on tamsulosin. He was previously taking Gemtesa but recently transitioned to Myrbetriq for his urgency and frequency. Review of Systems Review of Systems: All systems reviewed & are unremarkable except as noted in HPI and below [facility] Past Medical History Medical History (Updated 05/25/24 @ 11:24 by Bart Spears MD) Bilateral carotid artery stenosis 50 to 69% stenosis on the right and greater than 70% stenosis on the left CKD (chronic kidney disease) Stage III managed [address] Dr. Quintin Downey COPD exacerbation COVID Erythropoietin deficiency anemia Essential hypertension History of prostate cancer HTN (hypertension) Lupus (systemic lupus erythematosus) Monoclonal gammopathy Obstructive sleep apnea With nasal CPAP use Orthostasis Overactive bladder Peripheral artery disease With moderately decreased ABIs bilaterally December 2011 Rectus diastasis Rheumatoid arthritis Screening for thyroid disorder Sjogrens syndrome Spinal stenosis at L4-L5 level Surgical History Surgical History H/O bilateral inguinal hernia repair pen reccurent RI and open L ing. hernia rep w/ mesh 03/12/24 History of permanent cardiac pacemaker placement History of right inguinal hernia repair 2016, previous repair of mesh failure History of total bilateral knee replacement With the right knee being replaced once in the left knee being replaced 3 times with chronic left knee pain Hx of left inguinal hernia repair 2016, repair of mesh failure S/P bilateral inguinal hernia repair Family History Family History Mother Cirrhosis Sibling Esophageal cancer
[2024-05-25] MEDS: HYDROXYCHLOROQUINE SULFATE 200 MG TABLET PO (17:23)
[2024-05-25] MEDS: GABAPENTIN 300 MG CAPSULE PO (20:13)
[2024-05-25] MEDS: MONTELUKAST SODIUM 10 MG TABLET PO (20:13)
[2024-05-26] VITALS (11 sets, daily range): BP systolic 127–132; BP diastolic 63–84; PULSE 70–107; RESP 18–20; TEMP 36.6–36.9; O2SAT 96–98
--- NOTE | 2024-05-26 03:49 | PC.NURSE ---
patient refused CPAP tonight. patient states he has three sets of CPAP tubing in a drawer, and he believes his family member brought the wrong set. pt told this RN there is a piece missing from the face mask
[2024-05-26 04:10] LABS: Sodium 140 mmol/L (137-145)
[2024-05-26 04:16] LABS: Anion Gap 9 mmol/L (4-12); Blood Urea Nitrogen 44 mg/dL (9-20); Calcium 8.7 mg/dL (8.4-10.2); Carbon Dioxide 17 mmol/L (22-30); Chloride 114 mmol/L (98-107); Estimated CRCL calculation 16 ml/min; Estimated Glomerular Filt Rate 20; Glucose 81 mg/dL (65-110); Phosphorus 3.7 mg/dL (2.5-4.5); Potassium 4.2 mmol/L (3.4-5.0)
[2024-05-26] MEDS: ALBUTEROL SULFATE (*SP) AEROSOL 1 PUFF INHALATION (04:41)
[2024-05-26 05:17] LABS: Folic Acid 11.2 ng/mL (2.76->20)
[2024-05-26] MEDS: FLUTICASONE/UMECLIDIN/VILANTER 100-62.5-25 MCG ELLIPTA 1 PUFF INHALATION (07:57)
[2024-05-26] MEDS: amLODIPine BESYLATE 10 MG TABLET PO (08:44)
[2024-05-26] MEDS: ALPRAZolam (*CRX) 0.25 MG TABLET PO (08:44)
[2024-05-26] MEDS: FAMOTIDINE 20 MG TABLET 40 MG PO (08:45)
[2024-05-26] MEDS: HYDROXYCHLOROQUINE SULFATE 200 MG TABLET PO (08:46)
[2024-05-26] MEDS: SIMVASTATIN 10 MG TABLET PO (08:46)
[2024-05-26] MEDS: METOPROLOL SUCCINATE EXT REL 100 MG TABCR PO (08:46)
[2024-05-26] MEDS: SODIUM BICARBONATE TAB 650 MG TABLET PO (08:46)
[2024-05-26] MEDS: TAMSULOSIN HCL 0.4 MG CAPSULE PO (08:46)
--- NOTE | 2024-05-26 16:39 | PM.DS ---
DS: Admitting Diagnosis Discharge Date 05/26/24 Admitting Diagnosis Nausea DS: Discharge Diagnosis Discharge Diagnosis (1) Acute urinary retention: Code(s): R33.8 - Other retention of urine Status: Acute (2) Nausea & vomiting: Code(s): R11.2 - Nausea with vomiting, unspecified Status: Acute (3) Acute kidney injury superimposed on chronic kidney disease: Code(s): N17.9 - Acute kidney failure, unspecified; N18.9 - Chronic kidney disease, unspecified Status: Acute (4) History of prostate cancer: Code(s): Z85.46 - Personal history of malignant neoplasm of prostate Status: Acute (5) Essential hypertension: Code(s): I10 - Essential (primary) hypertension Status: Acute (6) COPD (chronic obstructive pulmonary disease): Code(s): J44.9 - Chronic obstructive pulmonary disease, unspecified Status: Acute (7) Lupus (systemic lupus erythematosus): Code(s): M32.9 - Systemic lupus erythematosus, unspecified Status: Acute (8) Obstructive sleep apnea: Code(s): G47.33 - Obstructive sleep apnea (adult) (pediatric) Status: Acute (9) Tobacco abuse: Code(s): Z72.0 - Tobacco use Status: Acute DS: Summary Hospital Course Reason for hospitalization: 83yo male with prostate CA, CKD and multiple autoimmune disorders here for nausea. Please see H&P for details. Hospital Course: Patient was admitted to medical floor. His symptoms have improved since the Strauss catheter was placed. Etiology of his urine retention could be residual issues from his prostate cancer and radiation treatment. Consider also BPH although felt less likely. Constipation also may be contributing to his urine retention symptoms. Flomax added. Urology consulted. Mirabegron stopped. CT scan prior to Strauss showing unremarkable urinary bladder. Patient also with nausea and vomiting off and on for the past 2 weeks. Probably related to urine retention. No acute findings noted on the CT Abd/Pelvis scan. Diet was started and and he did well with oral intake. Cr 3.8 on admission. Suspect the LOUIS related to dehydration and/or urine retention. He was treated with IV fluids. Cr improved and probably within his baseline now. Blood pressure mildly elevated but improved with resuming home medications. We continued CPAP here. Patient was educated about the benefits of smoking cessation. Colace started with good response. TSH normal. He overall did well and was able to be discharged on 05/26/24. Plan to follow-up with urology in the clinic for a voiding trial. Discussed with patient and family. All questions answered. Discussed with urology. Status at Discharge Cognitive/behavioral status at discharge: stable Time Spent with Patient Time attestation: Total time spent providing and/or coordinating discharge services: 35 minutes Time spent: Greater than 30 minutes Exam Narrative: AF 98.4 127/63 92 20 96% ra Gen - NARD Chest - distant BS CV - RRR S1/S2 Abd - soft, NT/ND - Strauss secured draining clear yellow urine Ext - no pedal edema. Psych - normal mood and affect. Skin - warm and dry. DS: Data Data Completed and Pending Labs on day of discharge: Labs from last 24 hours 05/26/24 03:26 Sodium 140 Potassium 4.2 Chloride 114 H Carbon Dioxide 17 L Anion Gap 9 BUN 44 H Creatinine 3.00 H Estim Creat Clear Calc 16 Estimated GFR 20 L Glucose 81 Calcium 8.7 Phosphorus 3.7 Magnesium 2.0 Vitamin B12 578.0 Folate 11.2 TSH (Reflex) 1.040 Discharge Plan Discharge Attending physician on discharge: Bart Spears Consulting providers: Nigel Elizalde Discharging Clinician: Bart Spears Anticipated Discharge Date/Time: 05/26/24 16:48 Patient Disposition: Home, Self-Care Activity: as tolerated Diet: heart healthy and high fiber Discharge Instructions: Stop all products that co
== END 2024-05-26 18:25 | disposition home or self-care (01) ==
LOC: ANHED 05-25 06:34 → ANH2MED 05-25 11:47 → ANH3MEDSUR 05-28 10:41
PROVIDERS: Admitting Provider Internal Medicine; Emergency Provider Emergency Medicine; PCP Family Medicine; Visit Provider Internal Medicine
DX: N17.9 Acute kidney failure, unspecified (principal); R33.8 Other retention of urine; N28.1 Cyst of kidney, acquired; R11.2 Nausea with vomiting, unspecified; I12.9 Hypertensive chronic kidney disease with stage 1 through stage 4 chronic kidney disease, or unspecified chronic kidney disease; N18.30 Chronic kidney disease, stage 3 unspecified; D63.1 Anemia in chronic kidney disease; M32.9 Systemic lupus erythematosus, unspecified; I10 Essential (primary) hypertension; J44.9 Chronic obstructive pulmonary disease, unspecified; D47.2 Monoclonal gammopathy; G47.33 Obstructive sleep apnea (adult) (pediatric); I73.9 Peripheral vascular disease, unspecified; M35.00 Sjogren syndrome, unspecified; Z95.0 Presence of cardiac pacemaker; F17.210 Nicotine dependence, cigarettes, uncomplicated; Z79.51 Long term (current) use of inhaled steroids; Z85.46 Personal history of malignant neoplasm of prostate; Z92.3 Personal history of irradiation
CPT/HCPCS: 36415; 74018; 74176; 80048; 80053; 80076; 81001; 82150; 82607; 82746; 83690; 83735; 84100; 84443; 85025; 94640; 96360; 99285; A9270; G0378; J7030

== ENCOUNTER 2024-06-07 11:24 | Inpatient (IN) | payer OTHER, SELFPAY ==
[2024-06-07] VITALS (24 sets, daily range): BP systolic 114–159; BP diastolic 66–117; PULSE 70–741; RESP 16–33; TEMP 36.3–37; O2SAT 92–100
--- NOTE | ~2024-06-07 | CT_ITS ---
CT brain wo con Ordering provider: Marifer Bay PA-C History: 83 years Male with . AMS . Comparison: December 11, 2023 Technique: CT of the head without contrast. Radiation reduction technique utilized. The dose-length product was 681.00 mGy-cm. BPD FINDINGS: BRAIN PARENCHYMA AND CSF SPACES: Mild leukoaraiosis and diffuse cortical atrophy. Mild atheromatous d isease. No midline shift, mass effect or hemorrhage. The brain parenchyma and CSF spaces are otherwi se normal. VISUALIZED PARANASAL SINUSES: Well aerated. MASTOIDS: Well aerated. BONES: The bones appear intact. SOFT TISSUES: Visualized nasopharynx is normal. Superficial soft tissues are normal. IMPRESSION: No acute intracranial findings. Reviewed, dictated and finalized at location A.
--- NOTE | ~2024-06-07 | XR_ITS ---
EXAMINATION: XR chest 2V DATE: 06/10/2024 08:42 INDICATION: Dyspnea. Productive cough. TECHNIQUE: PA and lateral views of the chest were obtained. COMPARISON: Chest radiograph dated 06/07/2024 FINDINGS: Decreased small bilateral pleural effusions with associated atelectasis versus pneumonia at the bilat eral lung bases. No pulmonary edema or pneumothorax. Heart size within normal limits for AP technique . Dual lead pacemaker seen with leads projecting over the expected locations of the right atrium and right ventricle. IMPRESSION: 1. Decreasing small bilateral pleural effusions with associated basilar atelectasis and/or pneumonia. Reviewed, dictated and finalized at location A. IMPRESSION: 1. Decreasing small bilateral pleural effusions with associated basilar atelect asis and/or pneumonia.
--- NOTE | ~2024-06-07 | XR_ITS ---
EXAMINATION: XR chest 2V DATE: 06/07/2024 14:01 INDICATION: Dyspnea. Productive cough. TECHNIQUE: Frontal and lateral views of the chest were obtained on 3 radiographs. COMPARISON: Chest 2 views 12/11/2023, CT abdomen and pelvis 05/25/2024 FINDINGS: There are small pleural effusions. There are airspace opacities in right mid and lower lung zones and left lung with a basilar predominance. No pneumothorax. Cardiomegaly is noted. There is a left chest wall pacer with leads in the right atrium and right ventricle. IMPRESSION: 1. Small pleural effusions. 2. Bilateral lung disease with a basilar predominance, consistent with atelectasis versus pneumonia. 3. Cardiomegaly. Reviewed, dictated and finalized at location A. IMPRESSION: 1. Small pleural effusions. 2. Bilateral lung disease with a basilar predominance, consistent with atelecta sis versus pneumonia. 3. Cardiomegaly.
--- NOTE | 2024-06-07 11:49 | ECG_ITS ---
Test Date: 2024-06-07 12:02:44 Measurements Intervals [place] Rate: 70 P: -57 DE: 296 QRS: -13 QRSD: 160 T: 52 QT: 441 QTc: 477 Interpretive Statements ELECTRONIC ATRIAL PACEMAKER RIGHT BUNDLE BRANCH BLOCK [120+ ms QRS DURATION, UPRIGHT V1, 40+ ms S IN I/aVL/V4/V5/V6] MODERATE T-WAVE ABNORMALITY, CONSIDER ANTEROLATERAL ISCHEMIA [-0.1+ mV T WAVE IN V3-V6] No previous ECG available for comparison Electronically Signed On 06-07-2024 13:38:50 CDT by Sj Huddleston M.D.
[2024-06-07 12:46] LABS: Basophils Percent Auto 0.4 % (0.2-1.2); Hematocrit 30.1 % (42.0-52.0); Hemoglobin 9.8 g/dL (14.0-18.0); Immature Granulocyte Absolute 0.03 K/mm3 (0.00-0.031); Immature Granulocyte Percent A 0.4 % (0-0.5); Lymphocytes Absolute Auto 0.67 K/mm3 (0.9-3.2); Lymphocytes Percent Auto 8.6 % (18.3-44.2); Mean Corpuscular HGB Conc 32.6 g/dl (32-36); Mean Corpuscular Hemoglobin 32.9 pg (26-34); Mean Platelet Volume 10.3 fl (7.4-10.4); Monocytes Absolute Auto 0.9 K/mm3 (0.1-0.6); Monocytes Percent Auto 11.3 % (2.6-8.5); Neutrophils Absolute Auto 6.2 K/mm3 (1.3-6.7); Neutrophils Percent Auto 79.3 % (45.5-73.1); Platelet Count Result 184 k/mm3 (150-375); Red Blood Count 2.98 M/mm3 (4.6-6.20); Red Cell Distribution Width 13.2 % (11.5-14.5); White Blood Count 7.8 K/mm3 (4.5-10.0)
[2024-06-07 12:52] LABS: Add Urine Microscopic? YES; Appearance Urine Clear (Clear); Bacteria Urine None Seen /hpf; Bilirubin Urine Negative (Negative); Blood Urine 1+ (Negative); Color Urine Yellow (Yellow); Glucose Urine UA Negative (Negative); Ketones Urine Negative (Negative); Leukocyte Esterase Ur Negative LEU/UL (Negative); Nitrate Urine Negative (Negative); Non Pathogenic Casts 0-2; Protein Urine 2+ mg/dL (Negative); RBC Urine 0-2 /hpf (0-2); Squamous Epithelial Cell Urine None Seen /hpf (Few); Urobilinogen Urine 0.2 mg/dL (<2.0); WBC Urine 0-5 /hpf (0-3); pH Urine 5.5 (5.0-9.0)
[2024-06-07 12:55] LABS: Alanine Aminotransferase 24 U/L (6-50); Albumin Level 3.8 g/dL (3.5-5.1); Alkaline Phosphatase 72 U/L (38-126); Anion Gap 11 mmol/L (4-12); Aspartate Amino Transferase 31 U/L (17-59); Bilirubin,Total 0.9 mg/dL (0.2-1.3); Blood Urea Nitrogen 45 mg/dL (9-20); Calcium 9.3 mg/dL (8.4-10.2); Carbon Dioxide 20 mmol/L (22-30); Chloride 103 mmol/L (98-107); Estimated CRCL calculation 16 ml/min; Estimated Glomerular Filt Rate 20; Glucose 104 mg/dL (65-110); Potassium 4.7 mmol/L (3.4-5.0); Sodium 134 mmol/L (137-145)
[2024-06-07 12:57] LABS: INR 1.1; Prothrombin Time 14.5 Seconds (11.1-14.7)
[2024-06-07 12:58] LABS: Partial Thromboplastin Time 33.4 Seconds (22.3-36.8)
--- NOTE | 2024-06-07 13:07 | ED.AMS ---
HPI - Altered Mental Status General Chief Complaint: Altered Mental Status Stated Complaint: confused/sent by pcp for possible UTI Time Seen by Provider: 06/07/24 11:49 Source: patient Mode of arrival: ambulatory Limitations: no limitations History of Present Illness HPI narrative: This is a 83 year old male that presents to the ER for altered mental status. Patient's reports over the last couple of days he has been saying some off the wall things. Reports he has been feeling anxious. He is also had some worsening trouble with his COPD. Reports productive cough and dyspnea. He did recently have a urinary catheter removed. He has not had any trouble urinating. Denies fevers, chest pain, abdominal pain, vomiting, dysuria. Related Data Home Medications Medication Instructions Recorded Confirmed hydroxychloroquine 200 mg tablet 200 mg PO BID 07/27/20 06/05/24 amlodipine 10 mg tablet 10 mg PO QAM 08/19/21 06/05/24 albuterol sulfate 90 mcg/actuation 1 puff inhalation Q4H PRN 12/22/23 06/05/24 aerosol inhaler (ProAir HFA) Shortness Of Breath Or Wheezing fluticasone fur. 100 mcg-umeclid 1 inh inhalation .QD 12/22/23 06/05/24 62.5 mcg-vilant 25 mcg inhalat.powder (Trelegy Ellipta) metoprolol succinate 100 mg 100 mg PO QAM 01/04/24 06/05/24 tablet,extended release 24 hr montelukast 10 mg tablet 10 mg PO HS 02/29/24 06/05/24 gabapentin 100 mg capsule 300 mg PO HS 03/28/24 06/05/24 famotidine 40 mg tablet 40 mg PO DAILY 05/25/24 06/05/24 simvastatin 10 mg tablet 10 mg PO DAILY 05/25/24 06/05/24 Allergies Allergy/AdvReac Type Severity Reaction Status Date / Time No Known Allergies Allergy Verified 06/07/24 17:25 Review of Systems Review of Systems: CONSTITUTIONAL: Denies fever CARDIOVASCULAR: Reports edema. Denies chest pain RESPIRATORY: Reports cough and dyspnea. GASTROINTESTINAL: Denies abdominal pain, nausea, vomiting GENITOURINARY: Denies dysuria or hematuria. All systems reviewed & are unremarkable except as noted in HPI and below PMFSH Past Medical History Medical History (Updated 06/07/24 @ 17:23 by Marifer Bay PA-C) Bilateral carotid artery stenosis 50 to 69% stenosis on the right and greater than 70% stenosis on the left CKD (chronic kidney disease) Stage III managed by Dr. Quintin Downey COPD exacerbation COVID Erythropoietin deficiency anemia Essential hypertension History of prostate cancer HTN (hypertension) Lupus (systemic lupus erythematosus) Monoclonal gammopathy Obstructive sleep apnea With nasal CPAP use Orthostasis Overactive bladder Peripheral artery disease With moderately decreased ABIs bilaterally December 2011 Rectus diastasis Renal mass, right Rheumatoid arthritis Screening for thyroid disorder Sjogrens syndrome Spinal stenosis at L4-L5 level Surgical History Surgical History H/O bilateral inguinal hernia repair pen reccurent RIH and open L ing. hernia rep w/ mesh 03/12/24 History of permanent cardiac pacemaker placement History of right inguinal hernia repair 2016, previous repair of mesh failure History of total bilateral knee replacement With the right knee being replaced once in the left knee being replaced 3 times with chronic left knee pain Hx of left inguinal hernia repair 2016, repair of mesh failure S/P bilateral inguinal hernia repair Family History Family History Mother Cirrhosis Sibling Esophageal cancer Father Acute myocardial infarction Lung disease Heart disease Sibling Esophageal cancer Skin cancer Social History Social History Social History: Patient continues to smoke half a pack a day. Denies drug use. No alcohol use. Lives at home with his and daughter. Code status: Full code Healthcare power of attor
[2024-06-07] MEDS: methylPREDNISolone SOD SUCC 125 MG VIAL IV PUSH (13:14)
[2024-06-07] MEDS: IPRATROPIUM 0.5 MG/ALBUTEROL SULFATE 2.5 MG AMPUL.NEB 3 ML INHALATION ×2 (13:27→20:48)
[2024-06-07 13:42] LABS: Alveolar/Arterial O2 Gradient 56.4 mmHg; Fractional Inspired Oxygen 21 %; Oxygen Saturation ABG 88.8 % (95.0-100.0); PCO2 ABG 30.8 mmHg (35.0-45.0); PO2 ABG 56.4 mmHg (80.0-100.0); PO2 FiO2 Ratio Arterial Blood 2.69 %; pH ABG 7.361 (7.350-7.450)
[2024-06-07 13:45] LABS: Device ROOM AIR; Modified Allen's Test Pass; Site Drawn LEFT RADIAL
[2024-06-07 13:50] LABS: NT Pro B Type Natriuretic Pept > 30000 pg/mL (19.9-100)
[2024-06-07 14:08] LABS: Influenza A QL RT-PCR Negative (Negative); Influenza B QL RT-PCR Negative (Negative); RSV RNA, RT-PCR Negative (Negative); SARS-CoV-2 RNA PCR Negative (Negative)
--- NOTE | 2024-06-07 15:25 | PM.IMHP ---
H&P: HPI History of Present Illness Date/Time: 06/07/24 15:25 Chief Complaint: AMS, Shortness of Breath Narrative: 83 y/o M presents here with altered mental status and shortness of breath with PMH of bilateral carotid stenosis, CKD, COPD, erythropoietin deficiency anemia, hypertension, lupus (SLE), ARTURO, overactive bladder, peripheral artery disease, rheumatoid arthritis, Sjogren's syndrome. The patient presents here from his PCP for further evaluation of altered mental status. The patient's reports that over the last few days he has been saying more off the wall things and having more anxiety. Currently A/Ox4 and free of agitation. Initially concerned he had a UTI due to recently having a urinary catheter removed on 06/05. Reports he has been urinating well at home. Patient denies dysuria, hematuria, or urinary hesitancy prior to admission. Patient has also been experiencing worsening shortness of breath, cough that has been productive yielding yellow-brown, and worsening COPD. He has been using his home inhalers and nebulizers with temporary relief. Denies accompanying chest pain, fever, chills, body aches, nausea, vomiting, or diarrhea. Once patient arrived to the floor, bladder scan showed 580 mL in the bladder. Accompanied by mild suprapubic fullness/discomfort. No further complaints voiced by patient. Initial VS at presentation: 98.6? F, HR 70, RR 23, 151/68, 96% on RA. ED workup showed: No leukocytosis, hemoglobin 9.8 (previously 11.4 on 05/25/2024), normal coags, sodium 134, creatinine 3.0 and GFR 20 (previously 3.0 and GFR 20 on 05/26/2024), BNP greater than 30,000, and UA showed 2+ protein and 1+ blood. Viral PCR negative. CXR showed small pleural effusions, bilateral lung disease with basilar predominance consistent with atelectasis versus pneumonia, and cardiomegaly. Head CT showed no acute intracranial findings. Review of Systems Review of Systems: All systems reviewed & are unremarkable except as noted in HPI and below [facility] Past Medical History Medical History (Updated 06/07/24 @ 18:50 by Kailyn Yin, MARK) Bilateral carotid artery stenosis 50 to 69% stenosis on the right and greater than 70% stenosis on the left CKD (chronic kidney disease) Stage III managed [address] Dr. Quintin Downey COPD exacerbation COVID Erythropoietin deficiency anemia Essential hypertension History of prostate cancer HTN (hypertension) Lupus (systemic lupus erythematosus) Monoclonal gammopathy Obstructive sleep apnea With nasal CPAP use Orthostasis Overactive bladder Peripheral artery disease With moderately decreased ABIs bilaterally December 2011 Rectus diastasis Renal mass, right Rheumatoid arthritis Screening for thyroid disorder Sjogrens syndrome Spinal stenosis at L4-L5 level Surgical History Surgical History H/O bilateral inguinal hernia repair pen reccurent RIH and open L ing. hernia rep w/ mesh 03/12/24 History of permanent cardiac pacemaker placement History of right inguinal hernia repair 2016, previous repair of mesh failure History of total bilateral knee replacement With the right knee being replaced once in the left knee being replaced 3 times with chronic left knee pain Hx of left inguinal hernia repair 2016, repair of mesh failure S/P bilateral inguinal hernia repair Family History Family History Mother Cirrhosis Sibling Esophageal cancer Father Acute myocardial infarction Lung disease Heart disease Sibling Esophageal cancer Skin cancer Social History Social History Social History: Patient continues to smoke half a pack a day. Denies drug use. No alcohol use. Lives at home with his and daughter. Code status: Full code Healthcare power of bird raiser: Linda Frank (
[2024-06-07] MEDS: FUROSEMIDE INJ 40 MG/4 ML VIAL IV PUSH (15:43)
[2024-06-07] MEDS: ALPRAZolam (*CRX) 0.25 MG TABLET PO (15:48)
[2024-06-07] MEDS: AZITHROMYCIN 500 MG/NS 250 ML 500 MG/250 ML BAG 250 MG IVPB (15:53)
--- NOTE | 2024-06-07 17:25 | PC.NURSE ---
This patient, Abdirizak Frank, was admitted to 3 [facility] Surg Room 332-01. Report received from SANCHEZ Chavez. Patient/family oriented to hospital policies and general routines including ID bracelet, bed and alarms, visiting hours, pain management, procedures, bathroom and other care routines, personal items, smoking policy, room service/diet, and visiting hours. Information on how to activate the Rapid Response Team has been discussed. Patient/Family are encouraged to report perceived risks to care and to ask questions if they do not understand what they are told or what they should do.
[2024-06-07] MEDS: GABAPENTIN 300 MG CAPSULE PO (20:23)
[2024-06-07] MEDS: MONTELUKAST SODIUM 10 MG TABLET PO (20:23)
[2024-06-07] MEDS: DOCUSATE SODIUM 100 MG CAPSULE PO (20:23)
[2024-06-07] MEDS: guaiFENesin 12 HR 600 MG TABCR PO (20:23)
[2024-06-07] MEDS: WATER FOR IRRIGATION, STERILE 1,000 ML BOTTLE 1000 ML (21:56)
[2024-06-08] VITALS (20 sets, daily range): BP systolic 133–154; BP diastolic 59–85; PULSE 65–95; RESP 16–26; TEMP 36.3–37.2; O2SAT 92–99
--- NOTE | 2024-06-08 | ECHO_ITS ---
Patient Info Name: Abdirizak Frank Age: 83 years : 1940 Gender: Male Ht: 65 in Wt: 173 lbs BSA: 1.92 m2 HR: 70 bpm BP: 154 / 66 mmHg Heart Rhythm: Sinus Rhythm Technical Quality: Good Exam Date: 06/08/2024 10:11 AM Exam Location: Echo Lab Patient Status: Inpatient Admit Date: 06/08/2024 Staff Ordering Physician: Kailyn Yin APRN Piccoloist: Olivia Neri RDCS Attending Provider: Bart Spears MD Referring Physician: Annamaria PARRA; Exam Type: CA echo doppler color flow Study Info Indications - sob with elevated bnp Complete two-dimensional, color flow and Doppler transthoracic echocardiogram is performed. Summary 1. Complete two-dimensional, color flow and Doppler transthoracic echocardiogram is performed. 2. Left ventricular chamber dimension is moderately enlarged. 3. Left ventricular systolic function is mildly globally reduced, estimated at 45-50%. 4. The left ventricular diastolic function is normal. 5. E/e' 3 is not elevated. 6. Linear artifact in right ventricle suggestive of catheter(s), pacemaker lead(s), or ICD lead(s). 7. Left atrial chamber dimension is mildly enlarged. 8. Linear artifact in the right atrium suggestive of catheter(s), pacemaker lead(s), or ICD lead(s). 9. There is mild aortic valve sclerosis. 10. There is moderate aortic valve regurgitation. 11. The mitral valve has mildly calcified leaflets and moderately calcified annulus. 12. There is moderate to severe mitral valve regurgitation. 13. There is mild to moderate tricuspid valve regurgitation. 14. Mild pulmonary hypertension, estimated pulmonary arterial systolic pressure is 42 mmHg. 15. There is trivial pericardial effusion. Left Ventricle Left ventricular systolic function is mildly globally reduced, estimated at 45-50%. E/e' 3 is not elevated. Left ventricular chamber dimension is moderately enlarged. The left ventricular diastolic function is normal. Right Ventricle Linear artifact in right ventricle suggestive of catheter(s), pacemaker lead(s), or ICD lead(s). Right ventricular chamber dimension is normal. Right ventricular systolic function is normal. Left Atria Left atrial chamber dimension is mildly enlarged. Right Atria Linear artifact in the right atrium suggestive of catheter(s), pacemaker lead(s), or ICD lead(s). Right atrial chamber dimension is normal. Aortic Valve The aortic valve is probable trileaflet. There is mild aortic valve sclerosis. There is no aortic valve stenosis. There is moderate aortic valve regurgitation. Pulmonic Valve There is no pulmonic regurgitation. Mitral Valve The mitral valve has mildly calcified leaflets and moderately calcified annulus. There is no mitral valve stenosis. There is moderate to severe mitral valve regurgitation. Tricuspid Valve There is mild to moderate tricuspid valve regurgitation. Mild pulmonary hypertension, estimated pulmonary arterial systolic pressure is 42 mmHg. Pericardium/Pleural There is trivial pericardial effusion. Inferior Vena Cava Normal inferior vena cava with >50% collapse upon inspiration consistent with normal right atrial pressure, 5 mmHg. Aorta The aortic root size at the sinus of Valsalva is normal. Left Ventricular Outflow Tract Name Value Normal LVOT 2D LVOT Diameter 1.
[2024-06-08] MEDS: IPRATROPIUM 0.5 MG/ALBUTEROL SULFATE 2.5 MG AMPUL.NEB 3 ML INHALATION ×4 (02:58→21:26)
[2024-06-08 05:53] LABS: Basophils Percent Auto 0.1 % (0.2-1.2); Hematocrit 28.6 % (42.0-52.0); Hemoglobin 9.6 g/dL (14.0-18.0); Immature Granulocyte Absolute 0.05 K/mm3 (0.00-0.031); Immature Granulocyte Percent A 0.6 % (0-0.5); Lymphocytes Absolute Auto 0.37 K/mm3 (0.9-3.2); Lymphocytes Percent Auto 4.3 % (18.3-44.2); Mean Corpuscular HGB Conc 33.6 g/dl (32-36); Mean Corpuscular Volume 98.3 fl (80-100); Mean Platelet Volume 10.4 fl (7.4-10.4); Monocytes Absolute Auto 0.3 K/mm3 (0.1-0.6); Neutrophils Absolute Auto 7.9 K/mm3 (1.3-6.7); Platelet Count Result 187 k/mm3 (150-375); Red Blood Count 2.91 M/mm3 (4.6-6.20); Red Cell Distribution Width 13.1 % (11.5-14.5); White Blood Count 8.6 K/mm3 (4.5-10.0)
[2024-06-08 06:07] LABS: Alanine Aminotransferase 21 U/L (6-50); Albumin Level 3.4 g/dL (3.5-5.1); Alkaline Phosphatase 64 U/L (38-126); Anion Gap 11 mmol/L (4-12); Aspartate Amino Transferase 24 U/L (17-59); Bilirubin,Total 0.9 mg/dL (0.2-1.3); Blood Urea Nitrogen 46 mg/dL (9-20); Carbon Dioxide 17 mmol/L (22-30); Chloride 106 mmol/L (98-107); Estimated CRCL calculation 17 ml/min; Estimated Glomerular Filt Rate 21; Glucose 93 mg/dL (65-110); Potassium 4.7 mmol/L (3.4-5.0); Sodium 134 mmol/L (137-145)
[2024-06-08] MEDS: FLUTICASONE/UMECLIDIN/VILANTER 100-62.5-25 MCG ELLIPTA 1 PUFF INHALATION (07:55)
[2024-06-08] MEDS: amLODIPine BESYLATE 10 MG TABLET PO (09:35)
[2024-06-08] MEDS: FUROSEMIDE INJ 40 MG/4 ML VIAL IV PUSH ×2 (09:35→17:08)
[2024-06-08] MEDS: ALPRAZolam (*CRX) 0.25 MG TABLET PO ×2 (09:35→17:08)
[2024-06-08] MEDS: predniSONE 20 MG TABLET 40 MG PO (09:35)
[2024-06-08] MEDS: DOCUSATE SODIUM 100 MG CAPSULE PO (09:36)
[2024-06-08] MEDS: guaiFENesin 12 HR 600 MG TABCR PO ×2 (09:36→20:10)
[2024-06-08] MEDS: FAMOTIDINE 20 MG TABLET 40 MG PO (09:36)
[2024-06-08] MEDS: HYDROXYCHLOROQUINE SULFATE 200 MG TABLET PO (09:37)
[2024-06-08] MEDS: IRBESARTAN 150 MG TABLET PO ×2 (09:37→17:05)
[2024-06-08] MEDS: METOPROLOL SUCCINATE EXT REL 100 MG TABCR PO (09:37)
[2024-06-08] MEDS: TAMSULOSIN HCL 0.4 MG CAPSULE PO (09:38)
[2024-06-08] MEDS: SIMVASTATIN 10 MG TABLET PO (09:38)
[2024-06-08] MEDS: SODIUM BICARBONATE TAB 650 MG TABLET PO ×2 (09:38→17:08)
--- NOTE | 2024-06-08 16:45 | PM.IMPN ---
Progress Note: A&P Assessment and Plan (1) Urinary retention: Code(s): R33.9 - Retention of urine, unspecified Status: Acute (2) COPD exacerbation: Code(s): J44.1 - Chronic obstructive pulmonary disease with (acute) exacerbation Status: Acute (3) Pneumonia: Qualifiers: Laterality: bilateral Lung location: lower lobe of lung Pneumonia type: due to unspecified organism Qualified Code(s): J18.9 - Pneumonia, unspecified organism Code(s): J18.9 - Pneumonia, unspecified organism Status: Acute (4) Acute hypoxic respiratory failure: Code(s): J96.01 - Acute respiratory failure with hypoxia Status: Acute (5) Fluid overload: Qualifiers: Hypervolemia type: unspecified Qualified Code(s): E87.70 - Fluid overload, unspecified Code(s): E87.70 - Fluid overload, unspecified Status: Acute (6) Chronic kidney disease (CKD): Qualifiers: Chronic kidney disease stage: stage 4 (severe) Qualified Code(s): N18.4 - Chronic kidney disease, stage 4 (severe) Code(s): N18.9 - Chronic kidney disease, unspecified Status: Acute (7) Pneumonia: Qualifiers: Laterality: bilateral Lung location: lower lobe of lung Pneumonia type: due to unspecified organism Qualified Code(s): J18.9 - Pneumonia, unspecified organism Code(s): J18.9 - Pneumonia, unspecified organism Status: Acute (8) CHF (congestive heart failure): Qualifiers: Heart failure chronicity: unspecified Heart failure type: unspecified Qualified Code(s): I50.9 - Heart failure, unspecified Code(s): I50.9 - Heart failure, unspecified Status: Suspected (9) CKD (chronic kidney disease): Qualifiers: Chronic kidney disease stage: unspecified stage Qualified Code(s): N18.9 - Chronic kidney disease, unspecified Code(s): N18.9 - Chronic kidney disease, unspecified Status: Chronic (10) Essential hypertension: Code(s): I10 - Essential (primary) hypertension Status: Chronic (11) Obstructive sleep apnea: Code(s): G47.33 - Obstructive sleep apnea (adult) (pediatric) Status: Chronic (12) Lupus (systemic lupus erythematosus): Code(s): M32.9 - Systemic lupus erythematosus, unspecified Status: Acute Plan 83-year-old male with a past medical history bilateral carotid stenosis, CKD stage 3, COPD, chronic anemia, hypertension, lupus/SLE, ARTURO compliant with CPAP, overactive bladder, urinary retention, peripheral artery disease, rheumatoid arthritis, Sjogren syndrome who has been in his usual health until the past few days prior to admission were as the patient began being off the wall things and having more anxiety. He also reported bloating, only 1 small bowel movement in about 10 days, heaviness in his chest cough with clear sputum production. Of recent he had a Strauss catheter removed on 06/05. He feels he has been urinating well afterwards. He denies any burning on urination, any bladder pain, fevers/chills/chest pain/diarrhea. He has been compliant with his home inhalers. On arrival to [place] [facility] he was found to have 580 mL in the bladder on bladder scan accompanied by mild suprapubic fullness/discomfort. Initial VS at presentation: 98.6? F, HR 70, RR 23, 151/68, 96% on RA. ED workup showed: No leukocytosis, hemoglobin 9.8 (previously 11.4 on 05/25/2024), normal coags, sodium 134, creatinine 3.0 and GFR 20 (previously 3.0 and GFR 20 on 05/26/2024), BNP greater than 30,000, and UA showed 2+ protein and 1+ blood. Viral PCR negative. CXR showed small pleural effusions, bilateral lung disease with basilar predominance consistent with atelectasis versus pneumonia, and cardiomegaly. Head CT showed no acute intracranial findings. ----- #Acute hypoxic respiratory failure -due to decompensated heart failure with borderline reduced ejection fraction, COPD exacerbation, bacterial pneumonia -curr
[2024-06-08] MEDS: SENNA/DOCUSATE SODIUM TABLET 2 TAB PO (17:08)
[2024-06-08] MEDS: AZITHROMYCIN 500 MG/NS 250 ML 500 MG/250 ML BAG 250 MG IVPB (17:57)
[2024-06-08] MEDS: GABAPENTIN 300 MG CAPSULE PO (20:10)
[2024-06-08] MEDS: MONTELUKAST SODIUM 10 MG TABLET PO (20:10)
[2024-06-08] MEDS: HEPARIN SODIUM 5,000 UNITS/ML VIAL 5000 UNITS SUB-Q (23:54)
[2024-06-09] VITALS (17 sets, daily range): BP systolic 130–152; BP diastolic 59–70; PULSE 68–78; RESP 18–20; TEMP 36.3–37; O2SAT 94–97
[2024-06-09 05:40] LABS: Basophils Percent Auto 0.1 % (0.2-1.2); Hematocrit 27.7 % (42.0-52.0); Hemoglobin 8.8 g/dL (14.0-18.0); Immature Granulocyte Absolute 0.05 K/mm3 (0.00-0.031); Immature Granulocyte Percent A 0.4 % (0-0.5); Lymphocytes Absolute Auto 0.87 K/mm3 (0.9-3.2); Lymphocytes Percent Auto 6.3 % (18.3-44.2); Mean Corpuscular HGB Conc 31.8 g/dl (32-36); Mean Corpuscular Hemoglobin 31.8 pg (26-34); Monocytes Percent Auto 6.9 % (2.6-8.5); Neutrophils Absolute Auto 11.9 K/mm3 (1.3-6.7); Neutrophils Percent Auto 86.3 % (45.5-73.1); Platelet Count Result 194 k/mm3 (150-375); Red Blood Count 2.77 M/mm3 (4.6-6.20); Red Cell Distribution Width 13.2 % (11.5-14.5); White Blood Count 13.7 K/mm3 (4.5-10.0)
[2024-06-09 05:41] LABS: Monocytes Absolute Auto 0.9 K/mm3 (0.1-0.6)
[2024-06-09 05:50] LABS: Alanine Aminotransferase 18 U/L (6-50); Albumin Level 3.1 g/dL (3.5-5.1); Alkaline Phosphatase 57 U/L (38-126); Anion Gap 7 mmol/L (4-12); Aspartate Amino Transferase 20 U/L (17-59); Bilirubin,Total 0.6 mg/dL (0.2-1.3); Blood Urea Nitrogen 64 mg/dL (9-20); Carbon Dioxide 20 mmol/L (22-30); Chloride 106 mmol/L (98-107); Estimated CRCL calculation 13 ml/min; Estimated Glomerular Filt Rate 16; Glucose 93 mg/dL (65-110); Potassium 4.6 mmol/L (3.4-5.0); Sodium 133 mmol/L (137-145)
[2024-06-09 06:04] LABS: Procalcitonin 0.2 ng/mL
[2024-06-09] MEDS: FLUTICASONE/UMECLIDIN/VILANTER 100-62.5-25 MCG ELLIPTA 1 PUFF INHALATION (07:29)
[2024-06-09] MEDS: IPRATROPIUM 0.5 MG/ALBUTEROL SULFATE 2.5 MG AMPUL.NEB 3 ML INHALATION ×3 (07:29→21:23)
--- NOTE | 2024-06-09 10:14 | P.PNIM_ITS ---
Progress Note: A&P Assessment and Plan (1) Urinary retention: Code(s): R33.9 - Retention of urine, unspecified Status: Acute (2) COPD exacerbation: Code(s): J44.1 - Chronic obstructive pulmonary disease with (acute) exacerbation Status: Acute (3) Pneumonia: Qualifiers: Laterality: bilateral Lung location: lower lobe of lung Pneumonia type: due to unspecified organism Qualified Code(s): J18.9 - Pneumonia, unspec ified organism Code(s): J18.9 - Pneumonia, unspecified organism Status: Acute (4) Acute hypoxic respiratory failure: Code(s): J96.01 - Acute respiratory failure with hypoxia Status: Acute (5) Fluid overload: Qualifiers: Hypervolemia type: unspecified Qualified Code(s): E87.70 - Fluid overload, unspecified Code(s): E87.70 - Fluid overload, unspecified Status: Acute (6) Chronic kidney disease (CKD): Qualifiers: Chronic kidney disease stage: stage 4 (severe) Qualified Code(s): N18.4 - Chronic kidney disease, stage 4 (severe) Code(s): N18.9 - Chronic kidney disease, unspecified Status: Acute (7) Pneumonia: Qualifiers: Pneumonia type: due to unspecified organism Laterality: bilateral Lung location: lower lobe of lung Qualified Code(s): J18.9 - Pneumonia, unspecified organism Code(s): J18.9 - Pneumonia, unspecified organism Status: Acute (8) CHF (congestive heart failure): Qualifiers: Heart failure type: unspecified Heart failure chronicity: unspecified Qualified Code(s): I50.9 - Heart failure, unspecified Code(s): I50.9 - Heart failure, unspecified Status: Suspected (9) CKD (chronic kidney disease): Qualifiers: Chronic kidney disease stage: unspecified stage Qualified Code(s): N18.9 - Chronic kidney disease, unspecified Code(s): N18.9 - Chronic kidney disease, unspecified Status: Chronic (10) Essential hypertension: Code(s): I10 - Essential (primary) hypertension Status: Chronic (11) Obstructive sleep apnea: Code(s): G47.33 - Obstructive sleep apnea (adult) (pediatric) Status: Chronic (12) Lupus (systemic lupus erythematosus): Code(s): M32.9 - Systemic lupus erythematosus, unspecified Status: Acute Plan 83-year-old male with a past medical history bilateral carotid stenosis, CKD stage 3, COPD, chronic anemia, hypertension, lupus/SLE, ARTURO compliant with CPAP, overactive bladder, urinary retention, peripheral artery disease, rheumatoid arthritis, Sjogren syndrome, mild unspecified neuro cognitive disorder, nicotine dependence, who has been in his usual health until the past few days prior to admission were as the patient began being off the wall things and having more anxiety. He also reported bloating, only 1 small bowel movement in about 10 days, heaviness in his chest cough with clear sputum production. Of recent he had a Strauss catheter removed on 06/05. He feels he has been urinating well afterwards. He denies any burning on urination, any bladder pain, fevers/chills/chest pain/diarrhea. He has been compliant with his home i nhalers. On arrival to [place] ER he was found to have 580 mL in the bladder on bladder scan accompanied by mild suprapubic fullness/discomfort. Initial VS at presentation: 98.6? F, HR 70, RR 23, 151/68, 96% on RA. ED workup showed: No leukocytosis, hemoglobin 9.8 (previously 11.4 on 05/25/2024), normal coags, sodium 134, creatinine 3.0 and GFR 20 (previously 3.0 and GFR 20 on 05/26/2024), BNP greater than 30,000, and UA showed 2+ prote
[2024-06-09] MEDS: SIMVASTATIN 10 MG TABLET PO (10:47)
[2024-06-09] MEDS: TAMSULOSIN HCL 0.4 MG CAPSULE PO (10:47)
[2024-06-09] MEDS: METOPROLOL SUCCINATE EXT REL 100 MG TABCR PO (10:48)
[2024-06-09] MEDS: amLODIPine BESYLATE 10 MG TABLET PO (10:48)
[2024-06-09] MEDS: guaiFENesin 12 HR 600 MG TABCR PO ×2 (10:48→20:11)
[2024-06-09] MEDS: HEPARIN SODIUM 5,000 UNITS/ML VIAL 5000 UNITS SUB-Q ×2 (10:48→20:11)
[2024-06-09] MEDS: SODIUM BICARBONATE TAB 650 MG TABLET PO ×2 (10:48→16:08)
[2024-06-09] MEDS: IRBESARTAN 150 MG TABLET PO (10:48)
[2024-06-09] MEDS: SENNA/DOCUSATE SODIUM TABLET 2 TAB PO ×2 (10:49→16:08)
[2024-06-09] MEDS: predniSONE 20 MG TABLET 40 MG PO (10:49)
[2024-06-09] MEDS: ALPRAZolam (*CRX) 0.25 MG TABLET PO ×2 (10:49→17:46)
[2024-06-09 12:06] LABS: Creatinine Urine 38.7 mg/dL; Urea Random Urine 260 MG/DL
--- NOTE | 2024-06-09 12:39 | PM.CNNEP ---
Assessment and Plan Assessment and plan (1) Chronic kidney disease (CKD): Qualifiers: Chronic kidney disease stage: stage 4 (severe) Qualified Code(s): N18.4 - Chronic kidney disease, stage 4 (severe) Code(s): N18.9 - Chronic kidney disease, unspecified Status: Acute Assessment and Plan: the patient has chronic kidney disease. This is due to hypertension. It has been stage IV since about 2019. It has gradually decline to around 15-20 depending on what is going on. I am guessing that in ideal circumstances, his GFR might be closer to 20. His GFR did drop with diuretics. He did respond quite well to diuretics yesterday. Diuretics are on hold today. He is more comfortable today. I think we should hold diuretics for today and then reassess tomorrow. We can get another chest x-ray and see how his numbers look. (2) Essential hypertension: Code(s): I10 - Essential (primary) hypertension Status: Chronic Assessment and Plan: He has high blood pressure. His meds are amlodipine irbesartan and metoprolol. His systolic is running in the 130s to 150s. Will follow this along as we diurese. (3) Lupus (systemic lupus erythematosus): Code(s): M32.9 - Systemic lupus erythematosus, unspecified Status: Acute Assessment and Plan: This is fairly quiescent. His right wrist is hurting some. He is not sure if this is from the lupus, RA, or Sjogren's. (4) CHF (congestive heart failure): Qualifiers: Heart failure type: unspecified Heart failure chronicity: unspecified Qualified Code(s): I50.9 - Heart failure, unspecified Code(s): I50.9 - Heart failure, unspecified Status: Suspected Assessment and Plan: The patient's breathing is better after that big diuresis yesterday (5) Pneumonia: Qualifiers: Pneumonia type: due to unspecified organism Laterality: bilateral Lung location: lower lobe of lung Qualified Code(s): J18.9 - Pneumonia, unspecified organism Code(s): J18.9 - Pneumonia, unspecified organism Status: Acute Assessment and Plan: he is on Zithromax and ceftriaxone (6) COPD exacerbation: Code(s): J44.1 - Chronic obstructive pulmonary disease with (acute) exacerbation Status: Acute Assessment and Plan: he continues to smoke. (7) Proteinuria: Code(s): R80.9 - Proteinuria, unspecified Status: Acute Assessment and Plan: He has [id number] proteinuria. (8) History of prostate cancer: Code(s): Z85.46 - Personal history of malignant neoplasm of prostate Status: Acute Assessment and Plan: He had radiation therapy to the area which is possibly why the obstruction is occurring according to the family. History of Present Illness Reason for Consult Consult date: 06/09/24 Chief Complaint Chief complaint: acute respiratory failure with hypoxia,copd exacer History of Present Illness Narrative: Abdirizak is a very pleasant 83-year-old gentleman with multiple medical problems including chronic kidney disease, COPD and he still smokes, anemia, hypertension, prostate cancer status post radiation therapy, hypertension, lupus, rheumatoid arthritis, Sjogren syndrome, monoclonal gammopathy, sleep apnea who uses CPAP machine, peripheral artery disease, spinal stenosis, right renal mass. A couple of weeks ago the patient came into the hospital because he could not urinate. A catheter was placed. He has been having problems with urination ever since he had radiation therapy for his prostate. This is been building up gradually but at the time of that last admission he was hardly able to urinate at all so a catheter was placed. He did better and was discharged. He went to see Dr. Soto on Tuesday and things look good so they removed the catheter in told the come back in if he was not urinating. At home on Tuesday he had to manipulate his urethra i
[2024-06-09 12:40] LABS: Eosinophil Urine None Seen % (None Seen)
[2024-06-09 12:43] LABS: Urine Eos QC OA
[2024-06-09] MEDS: ASPIRIN 81 MG ENTERIC TABLET PO (16:09)
[2024-06-09] MEDS: AZITHROMYCIN 500 MG/NS 250 ML 500 MG/250 ML BAG 250 MG IVPB (17:46)
[2024-06-09] MEDS: MONTELUKAST SODIUM 10 MG TABLET PO (20:11)
[2024-06-10] VITALS (15 sets, daily range): BP systolic 140–153; BP diastolic 59–84; PULSE 69–82; RESP 18–19; TEMP 36.4–37.1; O2SAT 94–98
[2024-06-10 06:30] LABS: Hematocrit 30.2 % (42.0-52.0); Hemoglobin 9.7 g/dL (14.0-18.0); Mean Corpuscular HGB Conc 32.1 g/dl (32-36); Mean Corpuscular Hemoglobin 32.2 pg (26-34); Mean Corpuscular Volume 100.3 fl (80-100); Mean Platelet Volume 9.8 fl (7.4-10.4); Platelet Count Result 231 k/mm3 (150-375); Red Blood Count 3.01 M/mm3 (4.6-6.20); Red Cell Distribution Width 13.2 % (11.5-14.5); White Blood Count 13.7 K/mm3 (4.5-10.0)
[2024-06-10 06:43] LABS: Cholesterol 99 mg/dL (0-200); HDL Direct 43 mg/dL; Triglycerides 72 mg/dL (<150)
[2024-06-10 06:45] LABS: Anion Gap 13 mmol/L (4-12); Blood Urea Nitrogen 70 mg/dL (9-20); Carbon Dioxide 19 mmol/L (22-30); Chloride 106 mmol/L (98-107); Estimated CRCL calculation 13 ml/min; Estimated Glomerular Filt Rate 16; Glucose 85 mg/dL (65-110); Magnesium 2.2 mg/dL (1.6-2.3); Potassium 4.4 mmol/L (3.4-5.0); Sodium 138 mmol/L (137-145)
[2024-06-10 06:46] LABS: Albumin Level 3.7 g/dL (3.5-5.1); Anion Gap 13 mmol/L (4-12); Blood Urea Nitrogen 70 mg/dL (9-20); Calcium 9.1 mg/dL (8.4-10.2); Carbon Dioxide 18 mmol/L (22-30); Chloride 106 mmol/L (98-107); Estimated CRCL calculation 13 ml/min; Estimated Glomerular Filt Rate 16; Glucose 85 mg/dL (65-110); Phosphorus 4.5 mg/dL (2.5-4.5); Potassium 4.5 mmol/L (3.4-5.0); Sodium 137 mmol/L (137-145)
[2024-06-10 06:48] LABS: Iron 66 ug/dL (49-181)
[2024-06-10 06:54] LABS: LDL Cholesterol Direct 43 mg/dL
[2024-06-10 06:57] LABS: Percent Iron Saturation 24 % (20-50)
[2024-06-10] MEDS: IPRATROPIUM 0.5 MG/ALBUTEROL SULFATE 2.5 MG AMPUL.NEB 3 ML INHALATION ×3 (06:57→20:54)
[2024-06-10] MEDS: FLUTICASONE/UMECLIDIN/VILANTER 100-62.5-25 MCG ELLIPTA 1 PUFF INHALATION (06:57)
[2024-06-10 07:02] LABS: Procalcitonin 0.2 ng/mL
[2024-06-10 07:38] LABS: Hemoglobin A1C 4.8 % (<5.7)
[2024-06-10] MEDS: guaiFENesin 12 HR 600 MG TABCR PO ×2 (10:37→20:18)
[2024-06-10] MEDS: SIMVASTATIN 10 MG TABLET PO (10:37)
[2024-06-10] MEDS: SENNA/DOCUSATE SODIUM TABLET 2 TAB PO ×2 (10:37→17:38)
--- NOTE | 2024-06-10 10:37 | PM.PNNEP ---
Progress Note: A&P Assessment and Plan (1) Chronic kidney disease (CKD): Qualifiers: Chronic kidney disease stage: stage 4 (severe) Qualified Code(s): N18.4 - Chronic kidney disease, stage 4 (severe) Code(s): N18.9 - Chronic kidney disease, unspecified Status: Acute Assessment and Plan: the patient has chronic kidney disease. This is due to hypertension. It has been stage IV since about 2019. It has gradually decline to around 15-20 depending on what is going on. I am guessing that in ideal circumstances, his GFR might be closer to 20. His GFR did drop with diuretics. He did respond quite well to diuretics on . Chest x-ray today looks much better than it did on admission. Will continue to hold diuretics right now to see how much better his kidneys can get. He had echocardiogram yesterday which did show mildly reduced systolic ejection fraction. He had normal diastolic function. He had mild to moderate pulmonary hypertension, likely from his smoking. Patient plans to stop smoking. His (other) daughter lives with him and smokes as well but she has said that she will not smoke in the house anymore. I believe the scenario is that he had problems urinating for a couple of days before he came in. He continued to eat and drink. Thus he became fluid overloaded and short of breath. Obviously is chest x-ray showed fluid. He could not urinate and so a Strauss catheter was replaced. At the same time he was given diuretics. So the release of the obstruction as well as the diuretics made him urinate almost a gallon. So possibly he was over diuresed leading to the higher creatinine. He might have had mildly reduced ejection fraction for a while but was compensated on his own but this tipped over because of his urinary obstruction. Now that his lungs are clear I think will continue holding the diuretics and reassess tomorrow. (2) Essential hypertension: Code(s): I10 - Essential (primary) hypertension Status: Chronic Assessment and Plan: He has high blood pressure. Systolic is run in the 130s to 150s. His meds are amlodipine irbesartan and metoprolol. He is back on the Amlodipine and metoprolol. Irbesartan remains on hold because of the acute kidney injury. (3) Lupus (systemic lupus erythematosus): Code(s): M32.9 - Systemic lupus erythematosus, unspecified Status: Acute Assessment and Plan: This is fairly quiescent. His right wrist is hurting some. He is not sure if this is from the lupus, RA, or Sjogren's. if the kidneys do not get better, it may indicated that this is ramping up. Will check a sed rate and CRP as well as complements to see if there is anything going on here. Will repeat the urinalysis as well. (4) CHF (congestive heart failure): Qualifiers: Heart failure type: unspecified Heart failure chronicity: unspecified Qualified Code(s): I50.9 - Heart failure, unspecified Code(s): I50.9 - Heart failure, unspecified Status: Suspected Assessment and Plan: The patient's breathing is better after that big diuresis yesterday EF is only 45-50%. Consider cardiac workup since he went into failure so quickly? Should be do a stress test? (5) Pneumonia: Qualifiers: Pneumonia type: due to unspecified organism Laterality: bilateral Lung location: lower lobe of lung Qualified Code(s): J18.9 - Pneumonia, unspecified organism Code(s): J18.9 - Pneumonia, unspecified organism Status: Acute Assessment and Plan: he is on Zithromax and ceftriaxone (6) COPD exacerbation: Code(s): J44.1 - Chronic obstructive pulmonary disease with (acute) exacerbation Status: Acute Assessment and Plan: he continues to smoke. However he has decided to stop now. (7) Proteinuria: Code(s): R80.9 - Proteinuria, unspecified Status: Acute Assessm
[2024-06-10] MEDS: METOPROLOL SUCCINATE EXT REL 100 MG TABCR PO (10:38)
[2024-06-10] MEDS: amLODIPine BESYLATE 10 MG TABLET PO (10:39)
[2024-06-10] MEDS: ASPIRIN 81 MG ENTERIC TABLET PO (10:39)
[2024-06-10] MEDS: ALPRAZolam (*CRX) 0.25 MG TABLET PO ×2 (10:39→17:37)
[2024-06-10] MEDS: predniSONE 20 MG TABLET 40 MG PO (10:39)
[2024-06-10] MEDS: HEPARIN SODIUM 5,000 UNITS/ML VIAL 5000 UNITS SUB-Q ×2 (10:39→20:18)
[2024-06-10] MEDS: TAMSULOSIN HCL 0.4 MG CAPSULE PO (10:40)
[2024-06-10] MEDS: SODIUM BICARBONATE TAB 650 MG TABLET PO ×2 (10:40→17:37)
[2024-06-10 11:20] LABS: Add Urine Microscopic? YES; Appearance Urine Clear (Clear); Bacteria Urine None Seen /hpf; Bilirubin Urine Negative (Negative); Blood Urine 3+ (Negative); Color Urine Yellow (Yellow); Glucose Urine UA Negative (Negative); Ketones Urine Negative (Negative); Leukocyte Esterase Ur 2+ LEU/UL (Negative); Nitrate Urine Negative (Negative); Protein Urine 2+ mg/dL (Negative); Specific Grav Ur 1.013 (1.001-1.035); Squamous Epithelial Cell Urine None Seen /hpf (Few); Urobilinogen Urine 0.2 mg/dL (<2.0); pH Urine 5.5 (5.0-9.0)
[2024-06-10 11:26] LABS: Creatinine Urine 76.4 mg/dL; Total Protein Urine Random 80 mg/dL; Ur Ttl Prot Creatinine Ratio 1.05 mg/mg (0-0.20)
[2024-06-10 11:29] LABS: Sodium Urine Random 60 meq/L; Urea Random Urine 593 MG/DL
--- NOTE | 2024-06-10 11:35 | P.PNIM_ITS ---
Progress Note: A&P Assessment and Plan (1) Urinary retention: Code(s): R33.9 - Retention of urine, unspecified Status: Acute (2) COPD exacerbation: Code(s): J44.1 - Chronic obstructive pulmonary disease with (acute) exacerbation Status: Acute (3) Pneumonia: Qualifiers: Laterality: bilateral Lung location: lower lobe of lung Pneumonia type: due to unspecified organism Qualified Code(s): J18.9 - Pneumonia, unspec ified organism Code(s): J18.9 - Pneumonia, unspecified organism Status: Acute (4) Acute hypoxic respiratory failure: Code(s): J96.01 - Acute respiratory failure with hypoxia Status: Acute (5) Fluid overload: Qualifiers: Hypervolemia type: unspecified Qualified Code(s): E87.70 - Fluid overload, unspecified Code(s): E87.70 - Fluid overload, unspecified Status: Acute (6) Chronic kidney disease (CKD): Qualifiers: Chronic kidney disease stage: stage 4 (severe) Qualified Code(s): N18.4 - Chronic kidney disease, stage 4 (severe) Code(s): N18.9 - Chronic kidney disease, unspecified Status: Acute (7) Pneumonia: Qualifiers: Pneumonia type: due to unspecified organism Laterality: bilateral Lung location: lower lobe of lung Qualified Code(s): J18.9 - Pneumonia, unspecified organism Code(s): J18.9 - Pneumonia, unspecified organism Status: Acute (8) CHF (congestive heart failure): Qualifiers: Heart failure type: unspecified Heart failure chronicity: unspecified Qualified Code(s): I50.9 - Heart failure, unspecified Code(s): I50.9 - Heart failure, unspecified Status: Suspected (9) CKD (chronic kidney disease): Qualifiers: Chronic kidney disease stage: unspecified stage Qualified Code(s): N18.9 - Chronic kidney disease, unspecified Code(s): N18.9 - Chronic kidney disease, unspecified Status: Chronic (10) Essential hypertension: Code(s): I10 - Essential (primary) hypertension Status: Chronic (11) Obstructive sleep apnea: Code(s): G47.33 - Obstructive sleep apnea (adult) (pediatric) Status: Chronic (12) Lupus (systemic lupus erythematosus): Code(s): M32.9 - Systemic lupus erythematosus, unspecified Status: Acute Plan 83-year-old male with a past medical history bilateral carotid stenosis, status post permanent pacemaker CKD stage 3, COPD, chronic anemia, hypertension, lupus/SLE, ARTURO compliant with CPAP, overactive bladder, urinary retention, peripheral artery disease, rheumatoid arthritis, Sjogren syndrome, mild unspecified neuro cognitive disorder, nicotine dependence, who has been in his usual health until the past few days prior to admission were as the patient began being off the wall things and having more anxiety. He also reported bloating, only 1 small bowel movement in about 10 days, heaviness in his chest cough with clear sputum production. Of recent he had a Strauss catheter removed on 06/05. He feels he has been urinating well afterwards. He denies any burning on urination, any bladder pain, fevers/chills/chest pain/diarrhea. He has been compliant with his home inhalers. On arrival to [place] [facility] he was found to have 580 mL in the bladder on bladder scan accompanied by mild suprapubic fullness/discomfort. Initial VS at presentation: 98.6? F, HR 70, RR 23, 151/68, 96% on RA. ED workup showed: No leukocytosis, hemoglobin 9.8 (previously 11.4 on 05/25/2024), normal coags, sodium 134, creatinine 3.0 and GFR 20 (previously 3.0 and GFR 20 on 05/26/2024), BNP great
[2024-06-10 12:30] LABS: CRP 2.8 mg/dL (<1.0); Creatine Kinase 77 U/L (55-170)
[2024-06-10 12:35] LABS: Complement C3 124 mg/dL (88-165)
[2024-06-10 13:57] LABS: Erythrocyte Sedimentation Rate 31 mm/hr (0-20)
[2024-06-10] MEDS: AMOXICILLIN/CLAVULANATE K 875-125 MG TAB 1 TABLET PO (20:18)
[2024-06-10] MEDS: MONTELUKAST SODIUM 10 MG TABLET PO (20:18)
[2024-06-11] VITALS (18 sets, daily range): BP systolic 133–156; BP diastolic 59–78; PULSE 70–84; RESP 16–20; TEMP 36–36.8; O2SAT 95–99
[2024-06-11] MEDS: IPRATROPIUM 0.5 MG/ALBUTEROL SULFATE 2.5 MG AMPUL.NEB 3 ML INHALATION ×4 (03:37→21:00)
[2024-06-11] MEDS: FLUTICASONE/UMECLIDIN/VILANTER 100-62.5-25 MCG ELLIPTA 1 PUFF INHALATION (07:30)
[2024-06-11 07:53] LABS: Hematocrit 34.3 % (42.0-52.0); Hemoglobin 10.9 g/dL (14.0-18.0); Mean Corpuscular HGB Conc 31.8 g/dl (32-36); Mean Corpuscular Hemoglobin 32.2 pg (26-34); Mean Corpuscular Volume 101.5 fl (80-100); Mean Platelet Volume 10.2 fl (7.4-10.4); Platelet Count Result 270 k/mm3 (150-375); Red Blood Count 3.38 M/mm3 (4.6-6.20); Red Cell Distribution Width 13.2 % (11.5-14.5); White Blood Count 12.9 K/mm3 (4.5-10.0)
[2024-06-11 08:05] LABS: Albumin Level 4.2 g/dL (3.5-5.1); Anion Gap 13 mmol/L (4-12); Blood Urea Nitrogen 73 mg/dL (9-20); Calcium 9.3 mg/dL (8.4-10.2); Carbon Dioxide 18 mmol/L (22-30); Chloride 107 mmol/L (98-107); Estimated CRCL calculation 13 ml/min; Estimated Glomerular Filt Rate 16; Glucose 89 mg/dL (65-110); Phosphorus 4.2 mg/dL (2.5-4.5); Potassium 4.3 mmol/L (3.4-5.0); Sodium 138 mmol/L (137-145)
[2024-06-11 08:29] LABS: Alanine Aminotransferase 26 U/L (6-50); Albumin Level 4.1 g/dL (3.5-5.1); Alkaline Phosphatase 65 U/L (38-126); Anion Gap 13 mmol/L (4-12); Aspartate Amino Transferase 33 U/L (17-59); Bilirubin,Total 0.8 mg/dL (0.2-1.3); Blood Urea Nitrogen 74 mg/dL (9-20); Calcium 9.5 mg/dL (8.4-10.2); Carbon Dioxide 18 mmol/L (22-30); Chloride 107 mmol/L (98-107); Estimated CRCL calculation 13 ml/min; Estimated Glomerular Filt Rate 16; Glucose 89 mg/dL (65-110); Potassium 4.3 mmol/L (3.4-5.0); Sodium 138 mmol/L (137-145)
[2024-06-11] MEDS: HEPARIN SODIUM 5,000 UNITS/ML VIAL 5000 UNITS SUB-Q ×2 (09:02→21:58)
[2024-06-11] MEDS: predniSONE 20 MG TABLET 40 MG PO (09:03)
[2024-06-11] MEDS: AMOXICILLIN/CLAVULANATE K 875-125 MG TAB 1 TABLET PO ×2 (09:03→21:58)
[2024-06-11] MEDS: TAMSULOSIN HCL 0.4 MG CAPSULE PO (09:03)
[2024-06-11] MEDS: SENNA/DOCUSATE SODIUM TABLET 2 TAB PO ×2 (09:03→17:42)
[2024-06-11] MEDS: SODIUM BICARBONATE TAB 650 MG TABLET PO ×2 (09:04→17:42)
[2024-06-11] MEDS: HYDROXYCHLOROQUINE SULFATE 200 MG TABLET PO ×2 (09:04→17:42)
[2024-06-11] MEDS: guaiFENesin 12 HR 600 MG TABCR PO ×2 (09:04→21:58)
[2024-06-11] MEDS: SIMVASTATIN 10 MG TABLET PO (09:04)
[2024-06-11] MEDS: ASPIRIN 81 MG ENTERIC TABLET PO (09:04)
[2024-06-11] MEDS: AZITHROMYCIN 250 MG TABLET PO (09:04)
[2024-06-11] MEDS: ALPRAZolam (*CRX) 0.25 MG TABLET PO ×2 (09:04→17:42)
[2024-06-11] MEDS: METOPROLOL SUCCINATE EXT REL 100 MG TABCR PO (09:12)
[2024-06-11] MEDS: amLODIPine BESYLATE 10 MG TABLET PO (09:13)
--- NOTE | 2024-06-11 11:39 | P.PNNP_ITS ---
Progress Note: A&P Assessment and Plan (1) Chronic kidney disease, stage IV (severe): Code(s): N18.4 - Chronic kidney disease, stage 4 (severe) Status: Acute Assessment and Plan: * baseline creatinine fluctuates ~ 2.7 - 3.5mg/dl in the last year or so * more recently, seems to average out to 2.9 - 3.2mg/dl * suspicion for fluctuating creatinine during this hospitalization may be just due to the sequence of events as outlined: * difficulty urinating for a few days before admission * continued to eat and drink normally -- this led to volume overload and SOB * escamilla placed on admission + received IV diuretics at the same time * with relief of urinary retention AND IV diuretics, significant UOP noted (possible over-diuresed since he also had post-obstruction diuresis) * this subsequently led to higher creatinine (?) * diuretics on hold currently * follow trend of repeat labs and UOP (2) Urinary retention: Code(s): R33.9 - Retention of urine, unspecified Status: Acute Assessment and Plan: * as noted prior to admission following escamilla catheter removal * s/p escamilla catheter replacement in ER * on flomax * Urology consultation(?) for further recommendations * suspect will need chronic escamilla for now... (3) CHF (congestive heart failure): Qualifiers: Heart failure chronicity: unspecified Heart failure type: unspecified Qualified Code(s): I50.9 - Heart failure, unspecified Code(s): I50.9 - Heart failure, unspecified Status: Suspected Assessment and Plan: * clinically better following diuresis/escamilla catheter placement * Echo noted: * EF ~ 45-50% * moderate to severe mitral valve regurgitation * mild to moderate tricuspid valve regurgitation * mild pulmonary hypertension, estimated pulmonary arterial systolic pressure is 42 mmHg * volume status better * continue supportive therapy (4) Essential hypertension: Code(s): I10 - Essential (primary) hypertension Status: Chronic Assessment and Plan: * running a bit higher than baseline * partly due to ARB being on hold due to #1 * follow trend of hemodynamics (5) Pneumonia: Qualifiers: Laterality: bilateral Lung location: lower lobe of lung Pneumonia type: due to unspecified organism Qualified Code(s): J18.9 - Pneumonia, unspecified organism Code(s): J18.9 - Pneumonia, unspecified organism Status: Acute Assessment and Plan: * possible based on admission imaging * complicated by smoking history * on antibiotics (6) History of prostate cancer: Code(s): Z85.46 - Personal history of malignant neoplasm of prostate Status: Chronic Assessment and Plan: * had radiation therapy to the area * possible etiology of obstruction (according to the family) Will continue to follow. Subjective Date/time seen: 06/11/24 11:39 Interval history: Follow-up for acute kidney injury/acute renal failure on chronic kidney disease. Chart reviewed -- assuming care from Dr. Downey; no apparent distress voiced at the time of my visit; daughter at bedside and we discussed the situation; renal function/creatinine a tad better in the last 24 hours with reasonable urine output noted; breathing/respiratory status seems stable; no acute issues/events overnight. Exam Narrative: General: elderly but WD/WN male in NAD Heart: normal S1 and S2; no rub Lungs: clear anteriorly, decreased at bases Abdomen: soft, nontend
--- NOTE | 2024-06-11 11:39 | PM.PNNEP ---
Progress Note: A&P Assessment and Plan (1) Chronic kidney disease, stage IV (severe): Code(s): N18.4 - Chronic kidney disease, stage 4 (severe) Status: Acute Assessment and Plan: baseline creatinine fluctuates ~ 2.7 - 3.5mg/dl in the last year or so more recently, seems to average out to 2.9 - 3.2mg/dl suspicion for fluctuating creatinine during this hospitalization may be just due to the sequence of events as outlined: difficulty urinating for a few days before admission continued to eat and drink normally -- this led to volume overload and SOB escamilla placed on admission + received IV diuretics at the same time with relief of urinary retention AND IV diuretics, significant UOP noted (possible over-diuresed since he also had post-obstruction diuresis) this subsequently led to higher creatinine (?) diuretics on hold currently follow trend of repeat labs and UOP (2) Urinary retention: Code(s): R33.9 - Retention of urine, unspecified Status: Acute Assessment and Plan: as noted prior to admission following escamilla catheter removal s/p escamilla catheter replacement in ER on flomax Urology consultation(?) for further recommendations suspect will need chronic escamilla for now... (3) CHF (congestive heart failure): Qualifiers: Heart failure chronicity: unspecified Heart failure type: unspecified Qualified Code(s): I50.9 - Heart failure, unspecified Code(s): I50.9 - Heart failure, unspecified Status: Suspected Assessment and Plan: clinically better following diuresis/escamilla catheter placement Echo noted: EF ~ 45-50% moderate to severe mitral valve regurgitation mild to moderate tricuspid valve regurgitation mild pulmonary hypertension, estimated pulmonary arterial systolic pressure is 42 mmHg volume status better continue supportive therapy (4) Essential hypertension: Code(s): I10 - Essential (primary) hypertension Status: Chronic Assessment and Plan: running a bit higher than baseline partly due to ARB being on hold due to #1 follow trend of hemodynamics (5) Pneumonia: Qualifiers: Laterality: bilateral Lung location: lower lobe of lung Pneumonia type: due to unspecified organism Qualified Code(s): J18.9 - Pneumonia, unspecified organism Code(s): J18.9 - Pneumonia, unspecified organism Status: Acute Assessment and Plan: possible based on admission imaging complicated by smoking history on antibiotics (6) History of prostate cancer: Code(s): Z85.46 - Personal history of malignant neoplasm of prostate Status: Chronic Assessment and Plan: had radiation therapy to the area possible etiology of obstruction (according to the family) Will continue to follow. Subjective Date/time seen: 06/11/24 11:39 Interval history: Follow-up for acute kidney injury/acute renal failure on chronic kidney disease. Chart reviewed -- assuming care from Dr. Downey; no apparent distress voiced at the time of my visit; daughter at bedside and we discussed the situation; renal function/creatinine a tad better in the last 24 hours with reasonable urine output noted; breathing/respiratory status seems stable; no acute issues/events overnight. Exam Narrative: General: elderly but WD/WN male in NAD Heart: normal S1 and S2; no rub Lungs: clear anteriorly, decreased at bases Abdomen: soft, nontender, nondistended, positive bowel sounds Extremities: no cyanosis or clubbing; no edema Skin: warm and dry Objective Data Vital Signs Vital Signs: Vital Signs Temp Pulse Resp BP Pulse Ox O2 Del Method FiO2 06/11/24 11:29 74 18 06/11/24 09:05 Room Air 06/11/24 09:25 96.8 F L 84 18 154/73 H 97 06/11/24 09:12 71 06/11/24 09:11 71 16 153/66 H 97 06/11/24 07:32 76 18 06/11/24 07:20 78 18 06/11/24
[2024-06-11 11:54] LABS: Procalcitonin 0.1 ng/mL
[2024-06-11] MEDS: ARTIFICIAL TEARS OPHTH SOLN 15 ML BOTTLE 1 DROP EACH EYE (11:55)
[2024-06-11 13:30] LABS: Complement Total CH50 59 U/mL (31-60)
--- NOTE | 2024-06-11 16:31 | PM.IMPN ---
Progress Note: A&P Assessment and Plan (1) Urinary retention: Code(s): R33.9 - Retention of urine, unspecified Status: Acute (2) COPD exacerbation: Code(s): J44.1 - Chronic obstructive pulmonary disease with (acute) exacerbation Status: Acute (3) Pneumonia: Qualifiers: Laterality: bilateral Lung location: lower lobe of lung Pneumonia type: due to unspecified organism Qualified Code(s): J18.9 - Pneumonia, unspecified organism Code(s): J18.9 - Pneumonia, unspecified organism Status: Acute (4) Acute hypoxic respiratory failure: Code(s): J96.01 - Acute respiratory failure with hypoxia Status: Acute (5) Fluid overload: Qualifiers: Hypervolemia type: unspecified Qualified Code(s): E87.70 - Fluid overload, unspecified Code(s): E87.70 - Fluid overload, unspecified Status: Acute (6) Chronic kidney disease (CKD): Qualifiers: Chronic kidney disease stage: stage 4 (severe) Qualified Code(s): N18.4 - Chronic kidney disease, stage 4 (severe) Code(s): N18.9 - Chronic kidney disease, unspecified Status: Acute (7) Pneumonia: Qualifiers: Pneumonia type: due to unspecified organism Laterality: bilateral Lung location: lower lobe of lung Qualified Code(s): J18.9 - Pneumonia, unspecified organism Code(s): J18.9 - Pneumonia, unspecified organism Status: Acute (8) CHF (congestive heart failure): Qualifiers: Heart failure type: unspecified Heart failure chronicity: unspecified Qualified Code(s): I50.9 - Heart failure, unspecified Code(s): I50.9 - Heart failure, unspecified Status: Suspected (9) CKD (chronic kidney disease): Qualifiers: Chronic kidney disease stage: unspecified stage Qualified Code(s): N18.9 - Chronic kidney disease, unspecified Code(s): N18.9 - Chronic kidney disease, unspecified Status: Chronic (10) Essential hypertension: Code(s): I10 - Essential (primary) hypertension Status: Chronic (11) Obstructive sleep apnea: Code(s): G47.33 - Obstructive sleep apnea (adult) (pediatric) Status: Chronic (12) Lupus (systemic lupus erythematosus): Code(s): M32.9 - Systemic lupus erythematosus, unspecified Status: Acute Plan 83-year-old male with a past medical history bilateral carotid stenosis, status post permanent pacemaker CKD stage 3, COPD, chronic anemia, hypertension, lupus/SLE, ARTURO compliant with CPAP, overactive bladder, urinary retention, peripheral artery disease, rheumatoid arthritis, Sjogren syndrome, mild unspecified neuro cognitive disorder, nicotine dependence, who has been in his usual health until the past few days prior to admission were as the patient began being off the wall things and having more anxiety. He also reported bloating, only 1 small bowel movement in about 10 days, heaviness in his chest cough with clear sputum production. Of recent he had a Strauss catheter removed on 06/05. He feels he has been urinating well afterwards. He denies any burning on urination, any bladder pain, fevers/chills/chest pain/diarrhea. He has been compliant with his home inhalers. On arrival to [place] ER he was found to have 580 mL in the bladder on bladder scan accompanied by mild suprapubic fullness/discomfort. Initial VS at presentation: 98.6? F, HR 70, RR 23, 151/68, 96% on RA. ED workup showed: No leukocytosis, hemoglobin 9.8 (previously 11.4 on 05/25/2024), normal coags, sodium 134, creatinine 3.0 and GFR 20 (previously 3.0 and GFR 20 on 05/26/2024), BNP greater than 30,000, and UA showed 2+ protein and 1+ blood. Viral PCR negative. CXR showed small pleural effusions, bilateral lung disease with basilar predominance consistent with atelectasis versus pneumonia, and cardiomegaly. Head CT showed no acute intracranial findings. ----- #Acute hypoxic respiratory failure -due to decompensated hea
[2024-06-11] MEDS: polyethylene glycoL 3350 17 GM POWD.PACK PO (17:42)
[2024-06-11] MEDS: MONTELUKAST SODIUM 10 MG TABLET PO (21:58)
[2024-06-11] MEDS: GABAPENTIN 300 MG CAPSULE PO (21:58)
[2024-06-12] VITALS (15 sets, daily range): BP systolic 102–139; BP diastolic 53–81; PULSE 70–124; RESP 16–20; TEMP 36.6–36.9; O2SAT 95–98
[2024-06-12] MEDS: IPRATROPIUM 0.5 MG/ALBUTEROL SULFATE 2.5 MG AMPUL.NEB 3 ML INHALATION ×4 (02:33→20:29)
[2024-06-12 07:09] LABS: Basophils Percent Auto 0.2 % (0.2-1.2); Hematocrit 32.7 % (42.0-52.0); Hemoglobin 10.3 g/dL (14.0-18.0); Immature Granulocyte Percent A 0.9 % (0-0.5); Lymphocytes Percent Auto 13.2 % (18.3-44.2); Mean Corpuscular HGB Conc 31.5 g/dl (32-36); Mean Corpuscular Hemoglobin 32.2 pg (26-34); Mean Corpuscular Volume 102.2 fl (80-100); Mean Platelet Volume 9.9 fl (7.4-10.4); Monocytes Percent Auto 9.6 % (2.6-8.5); Neutrophils Absolute Auto 8.1 K/mm3 (1.3-6.7); Neutrophils Percent Auto 76.1 % (45.5-73.1); Platelet Count Result 259 k/mm3 (150-375); Red Cell Distribution Width 13.1 % (11.5-14.5); White Blood Count 10.6 K/mm3 (4.5-10.0)
[2024-06-12] MEDS: FLUTICASONE/UMECLIDIN/VILANTER 100-62.5-25 MCG ELLIPTA 1 PUFF INHALATION (07:12)
[2024-06-12 07:25] LABS: Anion Gap 9 mmol/L (4-12); Blood Urea Nitrogen 70 mg/dL (9-20); Calcium 9.3 mg/dL (8.4-10.2); Carbon Dioxide 24 mmol/L (22-30); Chloride 107 mmol/L (98-107); Estimated CRCL calculation 14 ml/min; Estimated Glomerular Filt Rate 17; Glucose 81 mg/dL (65-110); Magnesium 2.3 mg/dL (1.6-2.3); Potassium 4.6 mmol/L (3.4-5.0); Sodium 140 mmol/L (137-145)
[2024-06-12] MEDS: predniSONE 20 MG TABLET 40 MG PO (08:53)
[2024-06-12] MEDS: HEPARIN SODIUM 5,000 UNITS/ML VIAL 5000 UNITS SUB-Q ×2 (08:58→22:01)
[2024-06-12] MEDS: TAMSULOSIN HCL 0.4 MG CAPSULE PO (08:59)
[2024-06-12] MEDS: SIMVASTATIN 10 MG TABLET PO (08:59)
[2024-06-12] MEDS: amLODIPine BESYLATE 10 MG TABLET PO (08:59)
[2024-06-12] MEDS: SODIUM BICARBONATE TAB 650 MG TABLET PO ×2 (08:59→17:08)
[2024-06-12] MEDS: AMOXICILLIN/CLAVULANATE K 875-125 MG TAB 1 TABLET PO ×2 (08:59→22:00)
[2024-06-12] MEDS: AZITHROMYCIN 250 MG TABLET PO (08:59)
[2024-06-12] MEDS: polyethylene glycoL 3350 17 GM POWD.PACK PO (08:59)
[2024-06-12] MEDS: ASPIRIN 81 MG ENTERIC TABLET PO (08:59)
[2024-06-12] MEDS: HYDROXYCHLOROQUINE SULFATE 200 MG TABLET PO ×2 (08:59→17:08)
[2024-06-12] MEDS: ALPRAZolam (*CRX) 0.25 MG TABLET PO ×2 (08:59→17:09)
[2024-06-12] MEDS: guaiFENesin 12 HR 600 MG TABCR PO ×2 (08:59→22:00)
[2024-06-12] MEDS: SENNA/DOCUSATE SODIUM TABLET 2 TAB PO ×2 (08:59→17:09)
[2024-06-12] MEDS: METOPROLOL SUCCINATE EXT REL 100 MG TABCR PO (09:00)
--- NOTE | 2024-06-12 11:05 | P.PNNP_ITS ---
Progress Note: A&P Assessment and Plan (1) Chronic kidney disease, stage IV (severe): Code(s): N18.4 - Chronic kidney disease, stage 4 (severe) Status: Acute Assessment and Plan: * baseline creatinine fluctuates ~ 2.7 - 3.5mg/dl in the last year or so * more recently, seems to average out to 2.9 - 3.2mg/dl * suspicion for fluctuating creatinine during this hospitalization may be just due to the sequence of events as outlined: * difficulty urinating for a few days before admission * continued to eat and drink normally -- this led to volume overload and SOB * escamilla placed on admission + received IV diuretics at the same time * with relief of urinary retention AND IV diuretics, significant UOP noted (possible over-diuresed since he also had post-obstruction diuresis) * this subsequently led to higher creatinine (?) * diuretics on hold currently (and continues to have good urine output) * follow trend of repeat labs and UOP (2) Urinary retention: Code(s): R33.9 - Retention of urine, unspecified Status: Acute Assessment and Plan: * as noted prior to admission following outpatient escamilla catheter removal * s/p escamilla catheter replacement in ER * on flomax * Urology consultation(?) for further recommendations * suspect will need chronic escamilla for now... (3) CHF (congestive heart failure): Qualifiers: Heart failure chronicity: unspecified Heart failure type: unspecified Qualified Code(s): I50.9 - Heart failure, unspecified Code(s): I50.9 - Heart failure, unspecified Status: Suspected Assessment and Plan: * clinically better following diuresis/escamilla catheter placement * Echo noted: * EF ~ 45-50% * moderate to severe mitral valve regurgitation * mild to moderate tricuspid valve regurgitation * mild pulmonary hypertension, estimated pulmonary arterial systolic pressure is 42 mmHg * volume status better * continue supportive therapy (4) Essential hypertension: Code(s): I10 - Essential (primary) hypertension Status: Chronic Assessment and Plan: * running a bit higher than baseline * partly due to ARB being on hold due to #1 * follow trend of hemodynamics (5) Pneumonia: Qualifiers: Laterality: bilateral Lung location: lower lobe of lung Pneumonia type: due to unspecified organism Qualified Code(s): J18.9 - Pneumonia, unsp ecified organism Code(s): J18.9 - Pneumonia, unspecified organism Status: Acute Assessment and Plan: * possible based on admission imaging * complicated by smoking history * on antibiotics (6) History of prostate cancer: Code(s): Z85.46 - Personal history of malignant neoplasm of prostate Status: Chronic Assessment and Plan: * had radiation therapy to the area * possible etiology of obstruction (according to the family) Extensive discussion with patient's daughter and at bedside regarding his renal dysfunction and ongoing recovery which may take several days if not longer to recovery (although technically, he is close to baseline by AM labs today). Not opposed to discharge from renal perspective if otherwise medically stble -- he can follow-up with Dr. Downey in the office as scheduled. Will continue to follow. Subjective Date/time seen: 06/12/24 11:05 Interval history: Follow-up for acute kidney injury/acute renal failure on chronic kidney disease. Renal function/creatinine improving albeit it very slowly; continues to make good urine output
--- NOTE | 2024-06-12 11:05 | PM.PNNEP ---
Progress Note: A&P Assessment and Plan (1) Chronic kidney disease, stage IV (severe): Code(s): N18.4 - Chronic kidney disease, stage 4 (severe) Status: Acute Assessment and Plan: baseline creatinine fluctuates ~ 2.7 - 3.5mg/dl in the last year or so more recently, seems to average out to 2.9 - 3.2mg/dl suspicion for fluctuating creatinine during this hospitalization may be just due to the sequence of events as outlined: difficulty urinating for a few days before admission continued to eat and drink normally -- this led to volume overload and SOB escamilla placed on admission + received IV diuretics at the same time with relief of urinary retention AND IV diuretics, significant UOP noted (possible over-diuresed since he also had post-obstruction diuresis) this subsequently led to higher creatinine (?) diuretics on hold currently (and continues to have good urine output) follow trend of repeat labs and UOP (2) Urinary retention: Code(s): R33.9 - Retention of urine, unspecified Status: Acute Assessment and Plan: as noted prior to admission following outpatient escamilla catheter removal s/p escamilla catheter replacement in ER on flomax Urology consultation(?) for further recommendations suspect will need chronic escamilla for now... (3) CHF (congestive heart failure): Qualifiers: Heart failure chronicity: unspecified Heart failure type: unspecified Qualified Code(s): I50.9 - Heart failure, unspecified Code(s): I50.9 - Heart failure, unspecified Status: Suspected Assessment and Plan: clinically better following diuresis/escamilla catheter placement Echo noted: EF ~ 45-50% moderate to severe mitral valve regurgitation mild to moderate tricuspid valve regurgitation mild pulmonary hypertension, estimated pulmonary arterial systolic pressure is 42 mmHg volume status better continue supportive therapy (4) Essential hypertension: Code(s): I10 - Essential (primary) hypertension Status: Chronic Assessment and Plan: running a bit higher than baseline partly due to ARB being on hold due to #1 follow trend of hemodynamics (5) Pneumonia: Qualifiers: Laterality: bilateral Lung location: lower lobe of lung Pneumonia type: due to unspecified organism Qualified Code(s): J18.9 - Pneumonia, unspecified organism Code(s): J18.9 - Pneumonia, unspecified organism Status: Acute Assessment and Plan: possible based on admission imaging complicated by smoking history on antibiotics (6) History of prostate cancer: Code(s): Z85.46 - Personal history of malignant neoplasm of prostate Status: Chronic Assessment and Plan: had radiation therapy to the area possible etiology of obstruction (according to the family) Extensive discussion with patient's daughter and at bedside regarding his renal dysfunction and ongoing recovery which may take several days if not longer to recovery (although technically, he is close to baseline by AM labs today). Not opposed to discharge from renal perspective if otherwise medically stble -- he can follow-up with Dr. Downey in the office as scheduled. Will continue to follow. Subjective Date/time seen: 06/12/24 11:05 Interval history: Follow-up for acute kidney injury/acute renal failure on chronic kidney disease. Renal function/creatinine improving albeit it very slowly; continues to make good urine output with escamilla catheter in place; no apparent distress noted at the time of visit; and daughter at bedside and detailed discussion with them regarding the situation. Exam Narrative: General: elderly but WD/WN male in NAD Heart: normal S1 and S2; no rub Lungs: clear anteriorly, decreased at bases Abdomen: soft, nontender, nondistended, positive bowel sounds Extremities: no cyanosis or clubbing; no edema Skin: warm and
[2024-06-12 12:43] LABS: Anti Nuclear Antibody Pattern Nuclear, Speckled
--- NOTE | 2024-06-12 15:22 | WPDURCON ---
Assessment and Plan Assessment and plan (1) Acute urinary retention: Code(s): R33.8 - Other retention of urine Status: Acute Assessment and Plan: 580 cc urinary retention on admission. Strauss catheter placed 06/07/2024. Continue Strauss catheter at this time. Will plan for discharge with Strauss when medically able and will arrange outpatient follow-up shortly after for repeat void trial. If unsuccessful, would plan for EP1 and cystoscopy. In the interim, continue tamsulosin. Will add finasteride. Urology Consult Note HPI Date Seen: 06/12/24 Requesting Physician: Rob Spears MD Primary Care Provider: Vel Gilliam MD Consult Narrative Narrative: Abdirizak Frank is a 83 year old male with history of prostate cancer s/p IMRT and androgen ablation in 2017 from overactive bladder, and BPH who is currently admitted for respiratory failure and is being seen in consultation for urinary retention. The patient was previously admitted 05/25/2024 and found to have urinary retention at that time (330 cc on initial bladder scan). He was discharged with a Strauss catheter. He was started on tamsulosin and his myrbetriq was discontinued. He had outpatient follow-up on 06/05/2024 and had successful void trial at that time. Plan was for follow-up in 2 weeks for repeat bladder scan. Unfortunately, on 06/07/2024 he developed altered mental status and presented to emergency room for evaluation. He reported he was voiding without difficulty, though family noted he was having trouble emptying his bladder. Bladder scan on admission was 580 cc and Strauss catheter was replaced. During this admission, he has been evaluated by Nephrology for creatinine elevated above baseline in setting of chronic kidney disease. [place] to be related to urinary retention and IV diuresis. Creatinine is 3.5 today. He continues with Strauss catheter at this time which is draining clear yellow urine. He continues on tamsulosin. At the time my evaluation, he is feeling well. Offers no complaints. No issues with Strauss catheter. Review of Systems Review of Systems: All systems reviewed & are unremarkable except as noted in HPI and below PMFSH Past Medical History Medical History Bilateral carotid artery stenosis 50 to 69% stenosis on the right and greater than 70% stenosis on the left CKD (chronic kidney disease) Stage III managed by Dr. Quintin Downey COPD exacerbation COVID Erythropoietin deficiency anemia Essential hypertension History of prostate cancer HTN (hypertension) Lupus (systemic lupus erythematosus) Monoclonal gammopathy Obstructive sleep apnea With nasal CPAP use Orthostasis Overactive bladder Peripheral artery disease With moderately decreased ABIs bilaterally December 2011 Rectus diastasis Renal mass, right Rheumatoid arthritis Screening for thyroid disorder Sjogrens syndrome Spinal stenosis at L4-L5 level Surgical History Surgical History H/O bilateral inguinal hernia repair pen reccurent RI and open L ing. hernia rep w/ mesh 03/12/24 History of permanent cardiac pacemaker placement History of right inguinal hernia repair 2016, previous repair of mesh failure History of total bilateral knee replacement With the right knee being replaced once in the left knee being replaced 3 times with chronic left knee pain Hx of left inguinal hernia repair 2016, repair of mesh failure S/P bilateral inguinal hernia repair Family History Family History Mother Cirrhosis Sibling Esophageal cancer Father Acute myocardial infarction Lung disease Heart disease Sibling Esophageal cancer Skin cancer Social History Social History Social History: Patient continue
--- NOTE | 2024-06-12 16:50 | PM.DS ---
DS: Admitting Diagnosis Discharge Date 06/12/2024 Admitting Diagnosis Acute hypoxic respiratory failure DS: Discharge Diagnosis Discharge Diagnosis (1) CKD (chronic kidney disease): Qualifiers: Chronic kidney disease stage: unspecified stage Qualified Code(s): N18.9 - Chronic kidney disease, unspecified Code(s): N18.9 - Chronic kidney disease, unspecified Status: Chronic (2) Essential hypertension: Code(s): I10 - Essential (primary) hypertension Status: Chronic (3) Obstructive sleep apnea: Code(s): G47.33 - Obstructive sleep apnea (adult) (pediatric) Status: Chronic (4) Lupus (systemic lupus erythematosus): Code(s): M32.9 - Systemic lupus erythematosus, unspecified Status: Acute (5) Sjogrens syndrome: Qualifiers: Sjogren organ or system involvement: unspecified organ involvement Qualified Code(s): M35.00 - Sjogren syndrome, unspecified Code(s): M35.00 - Sjogren syndrome, unspecified Status: Acute (6) COPD (chronic obstructive pulmonary disease): Qualifiers: COPD type: COPD with acute exacerbation Qualified Code(s): J44.1 - Chronic obstructive pulmonary disease with (acute) exacerbation Code(s): J44.9 - Chronic obstructive pulmonary disease, unspecified Status: Chronic (7) Acute kidney injury: Code(s): N17.9 - Acute kidney failure, unspecified Status: Acute (8) Acute kidney injury superimposed on chronic kidney disease: Code(s): N17.9 - Acute kidney failure, unspecified; N18.9 - Chronic kidney disease, unspecified Status: Acute (9) CHF (congestive heart failure): Qualifiers: Heart failure type: unspecified Heart failure chronicity: unspecified Qualified Code(s): I50.9 - Heart failure, unspecified Code(s): I50.9 - Heart failure, unspecified Status: Suspected (10) Acute hypoxic respiratory failure: Code(s): J96.01 - Acute respiratory failure with hypoxia Status: Acute (11) Urinary retention: Code(s): R33.9 - Retention of urine, unspecified Status: Acute DS: Summary Hospital Course Hospital Course: 83-year-old male with a past medical history bilateral carotid stenosis, status post permanent pacemaker CKD stage 3, COPD, chronic anemia, hypertension, lupus/SLE, ARTURO compliant with CPAP, overactive bladder, urinary retention, peripheral artery disease, rheumatoid arthritis, Sjogren syndrome, mild unspecified neuro cognitive disorder, nicotine dependence, who has been in his usual health until the past few days prior to admission were as the patient began being off the wall things and having more anxiety. He also reported bloating, only 1 small bowel movement in about 10 days, heaviness in his chest cough with clear sputum production. Of recent he had a Strauss catheter removed on 06/05. He feels he has been urinating well afterwards. He denies any burning on urination, any bladder pain, fevers/chills/chest pain/diarrhea. He has been compliant with his home inhalers. On arrival to [place] [facility] he was found to have 580 mL in the bladder on bladder scan accompanied by mild suprapubic fullness/discomfort. Initial VS at presentation: 98.6? F, HR 70, RR 23, 151/68, 96% on RA. ED workup showed: No leukocytosis, hemoglobin 9.8 (previously 11.4 on 05/25/2024), normal coags, sodium 134, creatinine 3.0 and GFR 20 (previously 3.0 and GFR 20 on 05/26/2024), BNP greater than 30,000, and UA showed 2+ protein and 1+ blood. Viral PCR negative. CXR showed small pleural effusions, bilateral lung disease with basilar predominance consistent with atelectasis versus pneumonia, and cardiomegaly. Head CT showed no acute intracranial findings. ON 06/12/2024 THE PATIENT IS STABLE FOR DISCHARGE TO HOME. HE IS COMPLETELY ASYMPTOMATIC AND EXTREMELY EAGER TO GO HOME. ALL QUESTIONS AND CONCERNS ANSWERED TO THE FAMILY AND THE PATIENT. MULTIPLE DISCUSSIONS HELD. THEY
[2024-06-12] MEDS: GABAPENTIN 300 MG CAPSULE PO (22:00)
[2024-06-12] MEDS: MONTELUKAST SODIUM 10 MG TABLET PO (22:01)
[2024-06-13 02:00] VITALS: BP 147/68; PULSE 70; RESP 18; TEMP 37.3; O2SAT 100
[2024-06-13 06:00] VITALS: BP 154/62; PULSE 68; RESP 20; TEMP 36.5; O2SAT 98
[2024-06-13 06:51] LABS: Albumin Level 3.3 g/dL (3.5-5.1); Anion Gap 10 mmol/L (4-12); Blood Urea Nitrogen 71 mg/dL (9-20); Carbon Dioxide 21 mmol/L (22-30); Chloride 107 mmol/L (98-107); Estimated CRCL calculation 15 ml/min; Estimated Glomerular Filt Rate 18; Glucose 87 mg/dL (65-110); Phosphorus 4.1 mg/dL (2.5-4.5); Potassium 4.4 mmol/L (3.4-5.0); Sodium 138 mmol/L (137-145)
[2024-06-13] MEDS: IPRATROPIUM 0.5 MG/ALBUTEROL SULFATE 2.5 MG AMPUL.NEB 3 ML INHALATION (07:56)
[2024-06-13] MEDS: FLUTICASONE/UMECLIDIN/VILANTER 100-62.5-25 MCG ELLIPTA 1 PUFF INHALATION (07:56)
[2024-06-13 07:57] VITALS: PULSE 71; RESP 18; O2SAT 97
[2024-06-13 08:07] VITALS: PULSE 73; RESP 18
[2024-06-13 08:40] VITALS: O2SAT 97
[2024-06-13] MEDS: ALPRAZolam (*CRX) 0.25 MG TABLET PO (08:40)
[2024-06-13 08:41] VITALS: PULSE 73
[2024-06-13] MEDS: SIMVASTATIN 10 MG TABLET PO (08:41)
[2024-06-13] MEDS: TAMSULOSIN HCL 0.4 MG CAPSULE PO (08:41)
[2024-06-13] MEDS: guaiFENesin 12 HR 600 MG TABCR PO (08:41)
[2024-06-13] MEDS: METOPROLOL SUCCINATE EXT REL 100 MG TABCR PO (08:41)
[2024-06-13] MEDS: amLODIPine BESYLATE 10 MG TABLET PO (08:41)
[2024-06-13] MEDS: SODIUM BICARBONATE TAB 650 MG TABLET PO (08:41)
[2024-06-13] MEDS: HYDROXYCHLOROQUINE SULFATE 200 MG TABLET PO (08:41)
[2024-06-13] MEDS: ASPIRIN 81 MG ENTERIC TABLET PO (08:41)
[2024-06-13] MEDS: FINASTERIDE 5 MG TABLET PO (08:41)
[2024-06-13] MEDS: SENNA/DOCUSATE SODIUM TABLET 2 TAB PO (08:43)
[2024-06-13] MEDS: HEPARIN SODIUM 5,000 UNITS/ML VIAL 5000 UNITS SUB-Q (08:43)
--- NOTE | 2024-06-13 08:43 | PM.IMPN ---
Progress Note: A&P Assessment and Plan (1) Interpersonal problem: Code(s): Z65.8 - Other specified problems related to psychosocial circumstances Status: Acute Plan Please see discharge summary previously documented. Apparently patient and the family refused for him to leave after discharge. Subjective Date/time seen: 06/12/24 1600 Interval history: No major events except for social issues Review of Systems Review of Systems: All systems reviewed & are unremarkable except as noted in HPI and below (Subjective) Exam Const: General: comfortable and no acute distress Eyes: Pupils: Equal, round and reactive pupils present Neck: Neck: supple Resp: Effort & Inspection: normal respiratory effort Other: Crackles resolved Cardio: Rate: regular rate Rhythm: regular rhythm GI: GI Palp: Yes Soft to palpation and No Tenderness to palpation present (GI) Other: Mild distension, improved from day prior Extrem: General: no edema Objective Data Vital Signs Vital Signs: Vital Signs - 24 hr 06/12/24 09:00 06/12/24 13:41 06/12/24 13:50 Temperature 98.5 F Pulse Rate 100 71 70 Respiratory Rate 18 18 Blood Pressure 126/73 Pulse Oximetry 97 Oxygen Delivery 06/12/24 13:58 06/12/24 18:00 06/12/24 20:30 Temperature 98.4 F Pulse Rate 72 70 Respiratory Rate 18 18 Blood Pressure 102/68 Pulse Oximetry 98 95 Oxygen Delivery Room Air 06/12/24 20:30 06/12/24 20:37 06/12/24 22:00 Temperature 98.3 F Pulse Rate 80 83 72 Respiratory Rate 18 18 20 Blood Pressure 124/64 Pulse Oximetry 98 Oxygen Delivery 06/12/24 20:00 06/13/24 02:00 06/13/24 06:00 Temperature 99.1 F 97.7 F Pulse Rate 70 68 Respiratory Rate 18 20 Blood Pressure 147/68 H 154/62 H Pulse Oximetry 100 98 Oxygen Delivery Room Air 06/13/24 07:57 06/13/24 07:57 06/13/24 08:07 Temperature Pulse Rate 71 73 Respiratory Rate 18 18 Blood Pressure Pulse Oximetry 97 Oxygen Delivery Room Air Intake/Output Intake/Output: Intake & Output 06/10/24 06/11/24 06/12/24 06/13/24 23:59 23:59 23:59 23:59 Intake Total 960 1810 1238 450 Output Total 0088 063 8737 800 Balance -590 189 -1212 -056 Meds/Results Medications: Active Medications Generic Name Dose Route Start Last Admin Trade Name Freq PRN Reason Stop Dose Admin Albuterol/Ipratropium 3 ml 06/07/24 20:00 06/13/24 07:56 Ipratropium 0.5 Mg/Albuterol Sulfate 2.5 Mg Ampul.Neb 3 Ml INHALATION 3 ml Q6HRT NICOLLE Administration Alprazolam 0.25 mg 06/08/24 09:00 06/12/24 17:09 Alprazolam (*Crx) 0.25 Mg Tablet PO 0.25 mg BID NICOLLE Administration Amlodipine Besylate 10 mg 06/08/24 09:00 06/12/24 08:59 Amlodipine Besylate 10 Mg Tablet PO 10 mg QAM NICOLLE Administration Artificial Tears 1 drop 06/10/24 17:32 06/11/24 11:55 Artificial Tears Ophth Soln 15 Ml Bottle EACH EYE 1 drop QID PRN Administration Dry Eye(s) Aspirin 81 mg 06/09/24 10:30 06/12/24 08:59 Aspirin 81 Mg Enteric Tablet PO 81 mg QAM NICOLLE Administration Azithromycin 250 mg 06/11/24 09:00 06/12/24 08:59 Azithromycin 250 Mg Tablet PO 06/13/24 08:59 250 mg DAILY NICOLLE Administration Finasteride 5 mg 06/13/24 09:00 Finasteride 5 Mg Tablet PO QAM NICOLLE Fluticasone/Umeclidinium/Vilanterol 1 puff 06/08/24 09:00 06/13/24 07:56 Fluticasone/Umeclidin/Vilanter 100-62.5-25 Mcg Ellipta INHALATION 1 puff DAILY NICOLLE Administration Gabapentin 300 mg 06/07/24 21:00 06/12/24 22:00 Gabapentin 300 Mg Capsule PO 300 mg HS NICOLLE Administration Guaifenesin 600 mg 06/07/24 21:00 06/12/24 22:00 Guaifenesin 12 Hr 600 Mg Tabcr PO 600 mg Q12HR NICOLLE Administration Heparin Sodium (Porcine) 5,000 units 06/08/24 21:00 06/12/24 22:01 Heparin Sodium 5,000 Units/Ml Vial SUB-Q 5,000 units Q12HR NICOLLE Administration Hydroxychloroquine Sulfate 200 mg 06/08/24 09:00 08/20/24
--- NOTE | 2024-06-13 11:04 | PM.DS ---
DS: Admitting Diagnosis Discharge Date 06/13/24 Admitting Diagnosis Acute hypoxic respiratory failure DS: Discharge Diagnosis Discharge Diagnosis (1) CKD (chronic kidney disease): Qualifiers: Chronic kidney disease stage: unspecified stage Qualified Code(s): N18.9 - Chronic kidney disease, unspecified Code(s): N18.9 - Chronic kidney disease, unspecified Status: Chronic (2) Acute hypoxic respiratory failure: Code(s): J96.01 - Acute respiratory failure with hypoxia Status: Acute (3) Pneumonia: Qualifiers: Laterality: bilateral Lung location: lower lobe of lung Pneumonia type: due to unspecified organism Qualified Code(s): J18.9 - Pneumonia, unspecified organism Code(s): J18.9 - Pneumonia, unspecified organism Status: Acute (4) Fluid overload: Qualifiers: Hypervolemia type: unspecified Qualified Code(s): E87.70 - Fluid overload, unspecified Code(s): E87.70 - Fluid overload, unspecified Status: Acute (5) Urinary retention: Code(s): R33.9 - Retention of urine, unspecified Status: Acute DS: Summary Hospital Course Hospital Course: Please see previous discharge summary. Patient still remained stable for discharge on home on 06/13/2024. Patient and family agreeable to leave today. Discussed with Nephrology, cleared for discharge with follow-up with Dr. Downey. Time Spent with Patient Time attestation: Total time spent providing and/or coordinating discharge services: Exam Const: General: comfortable and no acute distress Eyes: Pupils: Equal, round and reactive pupils present Neck: Neck: supple Resp: Effort & Inspection: normal respiratory effort Other: Crackles resolved Cardio: Rate: regular rate Rhythm: regular rhythm GI: GI Palp: Yes Soft to palpation and No Tenderness to palpation present (GI) Other: Mild distension, improved from day prior Extrem: General: no edema DS: Data Data Completed and Pending Labs on day of discharge: Labs from last 24 hours 06/13/24 06/10/24 05:43 06:21 Sodium 138 Potassium 4.4 Chloride 107 Carbon Dioxide 21 L Anion Gap 10 BUN 71 H Creatinine 3.30 H Estim Creat Clear Calc 15 Estimated GFR 18 L Glucose 87 Calcium 9.0 Phosphorus 4.1 Albumin 3.3 L JOE Screen Positive A JOE Titer 1:320 H JOE Pattern Nuclear, speckled A Discharge Plan Discharge Attending physician on discharge: Cecile Amado Consulting providers: Quintin Downey; Ham Melgar Discharging Clinician: Cecile Amado Patient Disposition: Home, Self-Care Activity: february shower Diet: as tolerated Patient Instructions: Antibiotic Form, Heart Failure (DC), How to Stop Smoking (DC), Chronic Kidney Disease (DC), COPD (Chronic Obstructive Pulmonary Disease) (DC) Stand Alone Forms: General Discharge Information Follow-up/Referrals: Quintin Downey MD [Physician] - Call for Appointment Vel Gilliam MD [Primary Care Provider] - Jeri Grey PA-C [Physician Yarn Sorter] - 06/19/24 9:45 am Discharge Medications: New finasteride [Proscar] 5 mg Tablet 5 mg PO QAM Qty: 30 0RF sennosides-docusate sodium [Senokot-S] 8.6-50 mg Tablet 2 tab-cap PO BID PRN (Reason: constipation) Qty: 60 0RF polyethylene glycol 3350 [Miralax] 17 gram Powder In Packet 17 g PO QAM PRN (Reason: constipation) Qty: 30 0RF aspirin 81 mg Tablet,Delayed Release (Dr/Ec) 81 mg PO QAM Qty: 30 0RF Continued amlodipine 10 mg tablet 10 mg PO QAM gabapentin 100 mg capsule 300 mg PO HS albuterol sulfate [ProAir HFA] 90 mcg/actuation HFA aerosol inhaler 1 puff inhalation Q4H PRN (Reason: Shortness Of Breath Or Wheezing) simvastatin 10 mg tablet 10 mg PO DAILY Rx Instructions: TAKE 1 TABLET BY MOUTH EVERY DAY tamsulosin 0.4 mg Capsule 0.4 mg PO QAM Qty: 30 1RF hydroxychloroquin
--- NOTE | 2024-06-14 10:14 | P.CDI_ITS ---
Acute heart failure systolic CDI Query Clarification Request Please specify type and acuity of heart failure if known. Clinical Indicators: EF documented as 45-50%, documentation states diuresed, BNP was 88[address] Treatment: states lasix given. * Acute * Chronic * Acute on Chronic * Unknown * Systolic * Diastolic * Combined Systolic and Diastolic * Unknown
--- NOTE | 2024-06-14 10:14 | WPDCDIQUERY2 ---
CDI Query Clarification Request Please specify type and acuity of heart failure if known. Clinical Indicators: EF documented as 45-50%, documentation states diuresed, BNP was 75575 Treatment: states lasix given. Acute Chronic Acute on Chronic Unknown Systolic Diastolic Combined Systolic and Diastolic Unknown
== END 2024-06-13 10:30 | disposition home or self-care (01) | DRG 189 ==
LOC: ANHED 16:29 → ANH3MEDSUR 16:37
PROVIDERS: Internal Medicine Nephrology; Student in an Organized Health Care Education/Training Program; Admitting Provider Internal Medicine; Emergency Provider Physician Assistant; PCP Family Medicine; Visit Provider General Practice
DX: J96.01 Acute respiratory failure with hypoxia (principal); J15.9 Unspecified bacterial pneumonia; I50.21 Acute systolic (congestive) heart failure; I13.0 Hypertensive heart and chronic kidney disease with heart failure and stage 1 through stage 4 chronic kidney disease, or unspecified chronic kidney disease; J44.1 Chronic obstructive pulmonary disease with (acute) exacerbation; J44.0 Chronic obstructive pulmonary disease with (acute) lower respiratory infection; N18.4 Chronic kidney disease, stage 4 (severe); N17.9 Acute kidney failure, unspecified; F17.210 Nicotine dependence, cigarettes, uncomplicated; M06.9 Rheumatoid arthritis, unspecified; I73.9 Peripheral vascular disease, unspecified; I65.23 Occlusion and stenosis of bilateral carotid arteries; N32.81 Overactive bladder; M35.00 Sjogren syndrome, unspecified; M48.061 Spinal stenosis, lumbar region without neurogenic claudication; G47.33 Obstructive sleep apnea (adult) (pediatric); D53.8 Other specified nutritional anemias; R41.9 Unspecified symptoms and signs involving cognitive functions and awareness; K59.00 Constipation, unspecified; R80.9 Proteinuria, unspecified; D47.2 Monoclonal gammopathy; F41.9 Anxiety disorder, unspecified; R33.8 Other retention of urine; K21.9 Gastro-esophageal reflux disease without esophagitis; D63.1 Anemia in chronic kidney disease; M32.9 Systemic lupus erythematosus, unspecified; Z96.653 Presence of artificial knee joint, bilateral; Z20.822 Contact with and (suspected) exposure to COVID-19; Z85.46 Personal history of malignant neoplasm of prostate; Z86.16 Personal history of COVID-19; Z95.0 Presence of cardiac pacemaker; Z65.8 Other specified problems related to psychosocial circumstances
CPT/HCPCS: 36415; 36600; 70450; 71046; 80048; 80053; 80061; 80069; 81001; 82375; 82550; 82570; 82728; 82805; 83036; 83050; 83540; 83550; 83735; 83880; 84145; 84156; 84300; 84540; 85025; 85027; 85610; 85652; 85730; 85999; 86038; 86039; 86140; 86160; 86162; 87040; 87637; 93005; 93306; 94640; 96365; 96368; 96375; 99285; A9270; G0378; J0456; J0696; J1644; J1940; J2919; J7512

== ENCOUNTER 2024-06-28 10:36 | Outpatient (CLI) | payer OTHER, SELFPAY ==
--- NOTE | ~2024-06-28 | XR_ITS ---
Clinical Indication: Pneumonia PA and lateral views of the chest: Comparison: 06/10/2024 Findings: Probable minimal pleural effusions are present. Cardiomediastinal silhouette is stable, wi th pacemaker device. Bones and soft tissues are unremarkable. Impression: Minimal pleural effusions, otherwise clear lungs. Reviewed, dictated and finalized at location . Impression: Minimal pleural effusions, otherwise clear lungs.
== END 2024-06-28 10:37 | disposition home or self-care (01) ==
PROVIDERS: PCP Family Medicine; Visit Provider Nurse Practitioner Family
DX: J18.9 Pneumonia, unspecified organism (principal)
CPT/HCPCS: 71046

== ENCOUNTER 2024-08-11 19:51 | Emergency (ER) | payer OTHER, SELFPAY ==
--- NOTE | ~2024-08-11 | XR_ITS ---
XR chest 2V Ordering provider: SHUN Berger History: 83 years Male with . cough xyest. hx CHF, COPD. r/o pneumonia . Comparison: June 28, 2024 FINDINGS: MEDIASTINUM: The cardiac silhouette is slightly enlarged. Left bipolar pacemaker. Congestive papa. LUNGS: No pneumothorax. Prominent markings bilaterally with interstitial thickening. Atelectasis in the lung bases with minim al effusion bilaterally. OTHER: No free air under the diaphragm. IMPRESSION: Cardiomegaly with cardiac decompensation and pulmonary edema. Pneumonitis is not excluded. Bilateral basilar atelectasis with minimal effusion. Reviewed, dictated and finalized at location A. IMPRESSION: Cardiomegaly with cardiac decompensation and pulmonary edema. Pneumonitis is no t excluded. Bilateral basilar atelectasis with minimal effusion.
[2024-08-11 20:00] VITALS: BP 125/79; PULSE 77; RESP 20; TEMP 36.3; O2SAT 99
--- NOTE | 2024-08-11 20:07 | ED.URI ---
HPI - URI/Sore Throat General Chief Complaint: Upper Respiratory Infection Stated Complaint: Upper Respiratory Problems Time Seen by Provider: 08/11/24 20:00 Source: patient and RN notes reviewed Mode of arrival: ambulatory Limitations: no limitations History of Present Illness HPI Narrative: Patient presents today complaining of cough, congestion, fatigue, shortness of breath with exertion. Symptoms began yesterday. Denies fever. He has tried some cold and flu medicine and Tessalon Perles with some mild relief. Patient was in the hospital at [facility] in mid May with pneumonia and acute respiratory failure and new onset CHF. Related Data Home Medications Medication Instructions Recorded Confirmed hydroxychloroquine 200 mg tablet 200 mg PO BID 07/27/20 07/18/24 amlodipine 10 mg tablet 10 mg PO QAM 08/19/21 07/18/24 albuterol sulfate 90 mcg/actuation 1 puff inhalation Q4H PRN 12/22/23 07/18/24 aerosol inhaler (ProAir HFA) Shortness Of Breath Or Wheezing fluticasone fur. 100 mcg-umeclid 1 inh inhalation .QD 12/22/23 07/18/24 62.5 mcg-vilant 25 mcg inhalat.powder (Trelegy Ellipta) metoprolol succinate 100 mg 100 mg PO QAM 01/04/24 07/18/24 tablet,extended release 24 hr montelukast 10 mg tablet 10 mg PO HS 02/29/24 07/18/24 gabapentin 100 mg capsule 300 mg PO HS 03/28/24 07/18/24 simvastatin 10 mg tablet 10 mg PO DAILY 05/25/24 07/18/24 Allergies Allergy/AdvReac Type Severity Reaction Status Date / Time No Known Allergies Allergy Verified 07/18/24 13:06 Review of Systems Review of Systems: CONSTITUTIONAL: Denies body aches, fever, chills, or sweats.+ fatigue EYES: Denies visual changes, redness, or discharge. ENT: Denies rhinorrhea, sore throat, or otalgia.+ congestion CARDIOVASCULAR: Denies chest pain, palpitations, or edema. RESPIRATORY:+ cough, shortness of breath with exertion GASTROINTESTINAL: Denies abdominal pain, nausea, vomiting, or diarrhea. GENITOURINARY: Denies dysuria or hematuria. SKIN: Denies rash, itching, or wounds. MUSCULOSKELETAL: Denies back pain, joint pain, or myalgia. NEUROLOGIC: Denies headache, numbness, tingling, or weakness. PSYCH: Denies depression or anxiety. [facility] Past Medical History Medical History Bilateral carotid artery stenosis 50 to 69% stenosis on the right and greater than 70% stenosis on the left CKD (chronic kidney disease) Stage III managed by Dr. Quintin Downey COPD exacerbation COVID Erythropoietin deficiency anemia Essential hypertension History of prostate cancer HTN (hypertension) Lupus (systemic lupus erythematosus) Monoclonal gammopathy Obstructive sleep apnea With nasal CPAP use Orthostasis Overactive bladder Peripheral artery disease With moderately decreased ABIs bilaterally December 2011 Rectus diastasis Renal mass, right Rheumatoid arthritis Screening for thyroid disorder Sjogrens syndrome Spinal stenosis at L4-L5 level Surgical History Surgical History H/O bilateral inguinal hernia repair pen reccurent RIH and open L ing. hernia rep w/ mesh 03/12/24 History of permanent cardiac pacemaker placement History of right inguinal hernia repair 2016, previous repair of mesh failure History of total bilateral knee replacement With the right knee being replaced once in the left knee being replaced 3 times with chronic left knee pain Hx of left inguinal hernia repair 2016, repair of mesh failure S/P bilateral inguinal hernia repair Family History Family History Mother Cirrhosis Sibling Esophageal cancer Father Acute myocardial infarction Lung disease Heart disease Sibling Esophageal cancer Skin cancer Social History Social History Soc
== END 2024-08-11 20:47 | disposition short-term general hospital (02) ==
PROVIDERS: Emergency Provider Nurse Practitioner; PCP Family Medicine
DX: R06.02 Shortness of breath (principal); J81.0 Acute pulmonary edema; R05.1 Acute cough; F17.210 Nicotine dependence, cigarettes, uncomplicated; I65.23 Occlusion and stenosis of bilateral carotid arteries; I13.0 Hypertensive heart and chronic kidney disease with heart failure and stage 1 through stage 4 chronic kidney disease, or unspecified chronic kidney disease; N18.30 Chronic kidney disease, stage 3 unspecified; I50.9 Heart failure, unspecified; J44.9 Chronic obstructive pulmonary disease, unspecified; M32.9 Systemic lupus erythematosus, unspecified; G47.33 Obstructive sleep apnea (adult) (pediatric); I73.9 Peripheral vascular disease, unspecified; M06.9 Rheumatoid arthritis, unspecified; M35.00 Sjogren syndrome, unspecified; M48.061 Spinal stenosis, lumbar region without neurogenic claudication; Z95.0 Presence of cardiac pacemaker; Z96.653 Presence of artificial knee joint, bilateral; Z85.46 Personal history of malignant neoplasm of prostate
CPT/HCPCS: 71046; 99213; G0463

== ENCOUNTER 2024-08-11 21:03 | Inpatient (IN) | payer OTHER, SELFPAY ==
--- NOTE | ~2024-08-11 | XR_ITS ---
EXAMINATION: XR chest 1V portable DATE: 08/14/2024 06:07 INDICATION: Shortness of breath. Congestive heart failure. TECHNIQUE: A single frontal view of the chest was obtained. COMPARISON: Chest view 08/13/2024 FINDINGS: There are airspace opacities in the lower lung zones. No pleural effusion or pneumothorax. There is left ventricular enlargement of the heart. There is a left chest wall pacer with leads in th e right atrium and right ventricle. IMPRESSION: 1. Improved airspace opacities in the lower lung zones, consistent with atelectasis versus pneumonia. 2. Left ventricular enlargement of the heart. Reviewed, dictated and finalized at location A. IMPRESSION: 1. Improved airspace opacities in the lower lung zones, consistent with atelect asis versus pneumonia. 2. Left ventricular enlargement of the heart.
--- NOTE | ~2024-08-11 | XR_ITS ---
XR chest 1V portable Ordering provider: Estefany Brown APRN History: 83 years Male with . cough . Comparison: August 11, 2024 FINDINGS: MEDIASTINUM: The cardiac silhouette is slightly enlarged. Left bipolar pacemaker. Congestive papa. LUNGS: No pneumothorax. Opacification the left lung base and also in the right lung bases is noted winston ggestive of atelectasis versus pneumonia. Minimal effusion bilaterally cannot be excluded. Bilateral interstitial changes are noted. OTHER: No free air under the diaphragm. IMPRESSION: Bibasilar atelectasis versus pneumonia with bilateral pleural effusion. Underlying pulmonary edema ca nnot be excluded. Changes are slightly increased compared to previous study. Reviewed, dictated and finalized at location A. IMPRESSION: Bibasilar atelectasis versus pneumonia with bilateral pleural effusion. Underly ing pulmonary edema cannot be excluded. Changes are slightly increased compared to previous study.
--- NOTE | 2024-08-11 21:09 | ECG_ITS ---
Test Date: 2024-08-11 21:15:44 Measurements Intervals [place] Rate: 70 P: 147 SC: 351 QRS: 21 QRSD: 131 T: 128 QT: 420 QTc: 453 Interpretive Statements ELECTRONIC ATRIAL PACEMAKER ELECTRONIC VENTRICULAR PACEMAKER ABNORMAL RHYTHM ECG Compared to ECG 06/07/2024 12:02:44 VENTRICLE IS PACED, NO OTHER CHANGE Electronically Signed On 08-12-2024 09:01:06 CDT by Thomas Brown M.D.
[2024-08-11 21:17] VITALS: BP 112/66; PULSE 70; RESP 16; TEMP 36.4; O2SAT 98
[2024-08-11 22:44] LABS: Basophils Percent Auto 0.3 % (0.2-1.2); Hematocrit 31.2 % (42.0-52.0); Immature Granulocyte Absolute 0.03 K/mm3 (0.00-0.031); Immature Granulocyte Percent A 0.3 % (0-0.5); Lymphocytes Absolute Auto 0.74 K/mm3 (0.9-3.2); Lymphocytes Percent Auto 8.4 % (18.3-44.2); Mean Corpuscular HGB Conc 32.1 g/dl (32-36); Mean Corpuscular Hemoglobin 32.6 pg (26-34); Mean Corpuscular Volume 101.6 fl (80-100); Mean Platelet Volume 9.6 fl (7.4-10.4); Monocytes Absolute Auto 0.5 K/mm3 (0.1-0.6); Monocytes Percent Auto 5.7 % (2.6-8.5); Neutrophils Absolute Auto 7.5 K/mm3 (1.3-6.7); Neutrophils Percent Auto 85.3 % (45.5-73.1); Platelet Count Result 178 k/mm3 (150-375); Red Blood Count 3.07 M/mm3 (4.6-6.20); Red Cell Distribution Width 13.7 % (11.5-14.5); White Blood Count 8.8 K/mm3 (4.5-10.0)
[2024-08-11 22:54] LABS: Lactic Acid Reflex 0.7 mmol/L (0.7-2.0)
[2024-08-11 22:55] LABS: Potassium 5.3 mmol/L (3.4-5.0)
[2024-08-11 23:04] LABS: Alanine Aminotransferase 28 U/L (6-50); Albumin Level 3.9 g/dL (3.5-5.1); Alkaline Phosphatase 70 U/L (38-126); Anion Gap 8 mmol/L (4-12); Aspartate Amino Transferase 38 U/L (17-59); Bilirubin,Total 0.7 mg/dL (0.2-1.3); Blood Urea Nitrogen 63 mg/dL (9-20); Calcium 8.9 mg/dL (8.4-10.2); Carbon Dioxide 19 mmol/L (22-30); Chloride 109 mmol/L (98-107); Estimated CRCL calculation 13 ml/min; Estimated Glomerular Filt Rate 16; Glucose 82 mg/dL (65-110); Sodium 136 mmol/L (137-145)
[2024-08-12] VITALS (10 sets, daily range): BP systolic 142–153; BP diastolic 56–72; PULSE 69–80; RESP 14–25; TEMP 36.4–36.8; O2SAT 92–98; BMI 25.8
--- NOTE | 2024-08-12 00:32 | ED.GENADULT ---
HPI - General Adult General Chief complaint: Shortness of Breath/Dyspnea Stated complaint: abd distention, breathing a little tight Time Seen by Provider: 08/12/24 00:03 History of Present Illness HPI narrative: Patient is an 83-year-old male who presents to the emergency department this evening from the urgent care due to exertional dyspnea and worsening shortness of breath for the past 2 days. Patient admits that he does have a history of chronic kidney disease stage 4 and congestive heart failure. Chest x-ray performed at the urgent care revealed cardiomegaly with pulmonary edema and patient was sent to our facility for further evaluation. Patient admits that due to his chronic kidney disease he is not on any Lasix. Patient was seen our facility in May of this year for similar findings. He does follow-up with nephrology with Dr. Downey. Patient admits that he still makes urine. Currently denying any chest pain, nausea, vomiting or abdominal pain. Patient admits that he has been noticing some lower extremity edema that has been getting worse throughout the past few days. Denies any fevers or chills at home. No additional symptoms or concerns at this time. Related Data Home Medications Medication Instructions Recorded Confirmed hydroxychloroquine 200 mg tablet 200 mg PO BID 07/27/20 07/18/24 amlodipine 10 mg tablet 10 mg PO QAM 08/19/21 07/18/24 albuterol sulfate 90 mcg/actuation 1 puff inhalation Q4H PRN 12/22/23 07/18/24 aerosol inhaler (ProAir HFA) Shortness Of Breath Or Wheezing fluticasone fur. 100 mcg-umeclid 1 inh inhalation .QD 12/22/23 07/18/24 62.5 mcg-vilant 25 mcg inhalat.powder (Trelegy Ellipta) metoprolol succinate 100 mg 100 mg PO QAM 01/04/24 07/18/24 tablet,extended release 24 hr montelukast 10 mg tablet 10 mg PO HS 02/29/24 07/18/24 gabapentin 100 mg capsule 300 mg PO HS 03/28/24 07/18/24 simvastatin 10 mg tablet 10 mg PO DAILY 05/25/24 07/18/24 Allergies Allergy/AdvReac Type Severity Reaction Status Date / Time No Known Allergies Allergy Verified 07/18/24 13:06 Review of Systems Review of Systems: All systems are reviewed and are negative unless stated otherwise in the HPI. [facility] Past Medical History Medical History Bilateral carotid artery stenosis 50 to 69% stenosis on the right and greater than 70% stenosis on the left CKD (chronic kidney disease) Stage III managed by Dr. Quintin Downey COPD exacerbation COVID Erythropoietin deficiency anemia Essential hypertension History of prostate cancer HTN (hypertension) Lupus (systemic lupus erythematosus) Monoclonal gammopathy Obstructive sleep apnea With nasal CPAP use Orthostasis Overactive bladder Peripheral artery disease With moderately decreased ABIs bilaterally December 2011 Rectus diastasis Renal mass, right Rheumatoid arthritis Screening for thyroid disorder Sjogrens syndrome Spinal stenosis at L4-L5 level Surgical History Surgical History H/O bilateral inguinal hernia repair pen reccurent RIH and open L ing. hernia rep w/ mesh 03/12/24 History of permanent cardiac pacemaker placement History of right inguinal hernia repair 2016, previous repair of mesh failure History of total bilateral knee replacement With the right knee being replaced once in the left knee being replaced 3 times with chronic left knee pain Hx of left inguinal hernia repair 2016, repair of mesh failure S/P bilateral inguinal hernia repair Family History Family History Mother Cirrhosis Sibling Esophageal cancer Father Acute myocardial infarction Lung disease Heart disease Sibling Esophageal cancer Skin cancer Social History Social History Social History: Patient continues to smoke half a pack a day. Denies drug use. No alcohol use. Lives at home with his and daughter. Code status: Full code Healthcare power of environmental attorney: Linda Frank () Smoking packs per day: 1 Smoking cigarettes per day: 20.0 Years smoked: 65 Smoking pack-years: 65.00 Smoking status: Current every day smoker Second hand tobacco smoke exposure: Yes Additional smoking assessment comments: SMOKING 0.5 PACK/DAY CURRENTLY Alcohol intake: never Substance use: never Substance use type: does not use Do You Feel Safe in your Home?: Yes Lack of Transportation: No Lack of Food: Never True Current Housing: I Have Housing Concerned About Future Housing: No Difficulty Paying Gas/Electric Bills: No Difficulty Paying for Meds: No Currently Unemployed: No Education: High School Diploma/GED Difficulty w/ Childcare or Family Care: No Living arrangements: with family Additional living arrangements comments: Occupation/Education: retired 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 HEENT: PERRL, no rhinorrhea, no post nasal drip, oropharynx clear. Neck: Trachea midline, no JVD, no lymphadenopathy. Cardiovascular: Regular rate and rhythm, no murmurs, rubs or gallops, lower extremity 2+ pitting edema. Respiratory: Coarse breath sounds bilaterally with crackles, no tachypnea, no wheezing, no rubs, no respiratory distress. Abdomen: Soft, nontender, nondistended, no rebound, no guarding, no peritoneal signs. Musculoskeletal: No joint swelling or deformity, normal muscle tone. Skin: No rashes or petechia, no signs of infection. Neurological: Alert and oriented to person, place, and time. Follows all commands. No focal deficits, speech is clear and fluent. Course Vital Signs Vital signs: Vital Signs Temperature 97.5 F L 08/11/24 21:17 Pulse Rate 70 08/11/24 21:17 Respiratory Rate 16 08/11/24 21:17 Blood Pressure 112/66 08/11/24 21:17 Pulse Oximetry 98 08/11/24 21:17 Temperature 97.5 F L 08/11/24 21:17 Pulse Rate 70 08/12/24 00:08 Respiratory Rate 14 08/12/24 00:08 Blood Pressure 150/65 H 08/12/24 00:08 Pulse Oximetry 97 08/12/24 00:08 Medical Decision Making MDM Narrative Medical decision making narrative: The patient was evaluated by myself in the emergency department. History is obtained from patient who is an independent historian and physical exam was performed. External medical records were reviewed at this time. IV was established and pertinent tests were ordered. Patient was administered 20 mg of IV Lasix at this time. EKG was obtained which revealed a paced rhythm rate of 70 beats per minute, good capture, negative Sgarbossa. EKG was independently interpreted by me and is currently pending official cardiology read. Laboratory results obtained revealing a proBNP greater than 30,000, potassium 5.3, BUN 63 creatinine 3.6. Viral swabs negative. Imaging studies obtained included CXR which was independently interpreted by me revealing cardiomegaly with pulmonary edema, which is pending final radiology interpretation. Differential diagnosis considerations include CHF exacerbation, fluid overload, pulmonary edema, infectious process such as pneumonia, acute viral syndrome. Comorbidities impacting this visit include history of CHF and chronic kidney disease. I have evaluated and discussed social determinants of health with the patient that could potentially impact subsequent diagnosis and treatment plans. On repeat assessment of the patient, reevaluation revealed that the patient is doing well and is in no acute distress. Patient symptoms have improved since he arrived to our emergency department. Repeat vital signs were all reviewed and noted to be stable. Differential diagnosis and treatment plan were discussed with the patient at bedside. Patient agrees with discussion and after shared medical decision making agrees with admission. All questions were answered to the patient's satisfaction. Case was discussed with the on-call hospitalist Dr. Rodriguez at 0050 and she accepted admission. Nephrology consultation was placed with the patient's director chemistry Dr. Downey. Vital Signs Vital Signs: Vital Signs Temperature 97.5 F L 08/11/24 21:17 Pulse Rate 70 08/11/24 21:17 Respiratory Rate 16 08/11/24 21:17 Blood Pressure 112/66 08/11/24 21:17 Pulse Oximetry 98 08/11/24 21:17 Temperature 97.5 F L 08/11/24 21:17 Pulse Rate 70 08/12/24 00:08 Respiratory Rate 14 08/12/24 00:08 Blood Pressure 150/65 H 08/12/24 00:08 Pulse Oximetry 97 08/12/24 00:08 Lab Data 08/11/24 22:38 08/11/24 22:38 Labs: Lab Results 08/11/24 08/12/24 Range/Units 22:38 00:20 WBC 8.8 (4.5-10.0) K/mm3 RBC 3.07 L (4.6-6.20) M/mm3 Hgb 10.0 L (14.0-18.0) g/dL Hct 31.2 L (42.0-52.0) % MCV 101.6 H (80-100) fl MCH 32.6 (26-34) pg MCHC 32.1 (32-36) g/dl RDW 13.7 (11.5-14.5) % Plt Count 178 (150-375) k/mm3 MPV 9.6 (7.4-10.4) fl Immature Gran % (Auto) 0.3 (0-0.5) % Neut % (Auto) 85.3 H (45.5-73.1) % Lymph % (Auto) 8.4 L (18.3-44.2) % [place] % (Auto) 5.7 (2.6-8.5) % Eos % (Auto) 0.0 (0-4.4) % Baso % (Auto) 0.3 (0.2-1.2) % Lymph # (Auto) 0.74 L (0.9-3.2) K/mm3 [place] # (Auto) 0.5 (0.1-0.6) K/mm3 Eos # (Auto) 0.0 (0-0.3) K/mm3 Baso # (Auto) 0.0 (0.0-0.1) K/mm3 Abs Immat Gran (auto) 0.03 (0.00-0.031) K/mm3 Absolute Neuts (auto) 7.5 H (1.3-6.7) K/mm3 Absolute Nucleated RBC 0.000 (0.0-0.012) K/mm3 Nucleated RBC % 0.0 (0.0-0.2) % Sodium 136 L (137-145) mmol/L Potassium 5.3 H (3.4-5.0) mmol/L Chloride 109 H (98-107) mmol/L Carbon Dioxide 19 L (22-30) mmol/L Anion Gap 8 (4-12) mmol/L BUN 63 H (9-20) mg/dL Creatinine 3.60 H (0.7-1.3) mg/dL Estim Creat Clear Calc 13 ml/min Estimated GFR 16 L (59 - ) Glucose 82 (65-110) mg/dL Lactic Acid 0.7 (0.7-2.0) mmol/L Calcium 8.9 (8.4-10.2) mg/dL Total Bilirubin 0.7 (0.2-1.3) mg/dL AST 38 (17-59) U/L ALT 28 (6-50) U/L Alkaline Phosphatase 70 (38-126) U/L NT-Pro-B Natriuret Pep > 25510 H (19.9-100) pg/mL Total Protein 7.0 (6.3-8.2) g/dL Albumin 3.9 (3.5-5.1) g/dL Influenza A (RT-PCR) Pending Influenza B (RT-PCR) Pending SARS-CoV-2 RNA (RT-PCR) Pending Discharge Plan Discharge Clinical Impression: CHF exacerbation, CKD (chronic kidney disease), Fluid overload, Pulmonary edema Patient Disposition: Still a Patient Condition: Stable Prescriptions: No Action amlodipine 10 mg tablet 10 mg PO QAM gabapentin 100 mg capsule 300 mg PO HS albuterol sulfate [ProAir HFA] 90 mcg/actuation HFA aerosol inhaler 1 puff inhalation Q4H PRN (Reason: Shortness Of Breath Or Wheezing) simvastatin 10 mg tablet 10 mg PO DAILY Rx Instructions: TAKE 1 TABLET BY MOUTH EVERY DAY tamsulosin 0.4 mg Capsule 0.4 mg PO QAM Qty: 30 1RF hydroxychloroquine 200 mg tablet 200 mg PO BID Trelegy Ellipta 100-62.5-25 mcg blister with device 1 inh INHALATION .QD montelukast 10 mg tablet 10 mg PO HS polyethylene glycol 3350 [Miralax] 17 gram Powder In Packet 17 g PO QAM PRN (Reason: constipation) Qty: 30 0RF aspirin 81 mg Tablet,Delayed Release (Dr/Ec) 81 mg PO QAM Qty: 30 0RF sodium bicarbonate 650 mg tablet 650 mg PO BID Qty: 180 3RF metoprolol succinate 100 mg tablet extended release 24 hr 100 mg PO QAM irbesartan 150 mg tablet 150 mg PO BID Qty: 180 1RF Hold Instructions: Follow-up with your kidney doctor alprazolam 0.25 mg tablet 0.25 mg PO BID Qty: 60 0RF sennosides-docusate sodium [Senokot-S] 8.6-50 mg tablet 2 tab-cap PO BID PRN (Reason: constipation) Qty: 60 0RF finasteride [Proscar] 5 mg tablet 5 mg PO QAM Qty: 30 0RF Follow-up/Referrals: Vel Gilliam MD [Primary Care Provider] -
[2024-08-12 00:40] LABS: NT Pro B Type Natriuretic Pept > 30000 pg/mL (19.9-100)
[2024-08-12] MEDS: ALPRAZolam (*CRX) 0.5 MG TABLET 0.25 MG PO (00:58)
[2024-08-12 01:05] LABS: Influenza A QL RT-PCR Negative (Negative); Influenza B QL RT-PCR Negative (Negative); SARS-CoV-2 RNA PCR Negative (Negative)
[2024-08-12] MEDS: FUROSEMIDE INJ 40 MG/4 ML VIAL 20 MG IV PUSH (01:08)
--- NOTE | 2024-08-12 02:10 | ADMGEN ---
This patient, Abdirizak Frank, was admitted to Medical Room 253-01. Patient/family oriented to hospital policies and general routines including ID bracelet, bed and alarms, visiting hours, pain management, procedures, bathroom and other care routines, personal items, smoking policy, room service/diet, and visiting hours. Information on how to activate the Rapid Response Team has been discussed. Patient/Family are encouraged to report perceived risks to care and to ask questions if they do not understand what they are told or what they should do.
--- NOTE | 2024-08-12 07:17 | PM.IMHP ---
H&P: HPI History of Present Illness Date/Time: 08/12/24 07:17 Chief Complaint: shortness of breath/dyspnea Narrative: 83-year-old male with a past medical history bilateral carotid stenosis, CKD stage 3, COPD, chronic anemia, hypertension, lupus/SLE, ARTURO compliant with CPAP, overactive bladder, urinary retention, peripheral artery disease, rheumatoid arthritis, and Sjogren syndrome presents to the hospital for increased shortness of breath. Majority of history is obtained from patient, Linda contributes with patients permission. Patient states that he started noticing increased shortness of breath on with an associated productive cough. He also started to have bilateral lower extremity swelling around the same time. Patient was recently admitted from 06/07-06/13/2024 for similar symptoms resulting in a new diagnosis of heart failure with reduced EF. Per chart review on 06/09 there was a discussion about dialysis, however patient declined resulting in no cardiac catheterization being performed. He remained on his beta-alli metoprolol succinate 100 mg p.o. q.a.m. at that time. Unable to start lasix, spironolactone or Jardiance due to his severely reduced GFR at time of discharge. Patient was placed on a low sodium and diet and fluid restriction. Per him and his he had been adamantly following this. He notes that he has been having a slight decrease in urine output for the past week or so. Denies hematuria, dysuria and burning sensation. Patient continues to eat and drink normally at that time. Per nephrology note from previous admission it was believed that urinary retention was likely the cause of the fluid overload. On assessment, patient had no complaints. He continues to endorse a productive cough and bilateral lower extremity edema without associated pain. He denies chest pain, shortness of breath, nausea/vomiting and abdominal pain. Had a long discussion with patient and his in regards to code status. At this time patient wishes to be made DNR. is in agreement. Code status changed at that time. ED workup: CBC with WBC 8.8, H/H 10/31.2 and PLT 178. Chemistry with hyperkalemia 5.3. BUN/Cr 63/3.6 with GFR 16. Lactic acid 0.7. LFTs WNL. BNP > 30,000. EKG: Atrial pacing. 70 beats per minute. No signs of ischemia. Chest XR: Cardiomegaly with cardiac decompensation and pulmonary edema. Pneumonitis is not excluded. Bilateral basilar atelectasis with minimal effusion.Echo 06/08/2024: LVEF 45-50% with mild pulmonary hypertension. Covid/flu/rsv negative. Lasix 40 mg IV given. Nephrology consulted. Review of Systems Review of Systems: All systems reviewed & are unremarkable except as noted in HPI and below [facility] Past Medical History Medical History Bilateral carotid artery stenosis 50 to 69% stenosis on the right and greater than 70% stenosis on the left CKD (chronic kidney disease) Stage III managed by Dr. Quintin Downey COPD exacerbation COVID Erythropoietin deficiency anemia Essential hypertension History of prostate cancer HTN (hypertension) Lupus (systemic lupus erythematosus) Monoclonal gammopathy Obstructive sleep apnea With nasal CPAP use Orthostasis Overactive bladder Peripheral artery disease With moderately decreased ABIs bilaterally December 2011 Rectus diastasis Renal mass, right Rheumatoid arthritis Screening for thyroid disorder Sjogrens syndrome Spinal stenosis at L4-L5 level Surgical History Surgical History (Updated 08/12/24 @ 13:36 by Frances Bertrand PA-C) H/O bilateral inguinal hernia repair pen reccurent RIH and open L ing. hernia rep w/ mesh 03/12/24 History of permanent cardiac pacemaker placement 2021 History of prostate surgery History of right inguinal hernia repair 2016, previous repair of mesh failure History of total bilateral knee replacement With the right knee being replaced once in the left knee being replaced 3 times with chronic left knee pain Hx of left inguinal hernia repair 2015, repair of mesh failure S/P bilateral inguinal hernia repair Family History Family History Mother Cirrhosis Sibling Esophageal cancer Father Acute myocardial infarction Lung disease Heart disease Sibling Esophageal cancer Skin cancer Social History Social History (Updated 08/12/24 @ 13:37 by Frances Bertrand PA-C) Social History: Patient continues to smoke half a pack a day. Denies drug use. No alcohol use. Lives at home with his and daughter. 3 dogs. Patient smoked half a pack a day (stopped 1 month ago). Denies drug use. No alcohol use. Code status: Full code Healthcare power of workers compensation defense attorney: Linda Frank () Smoking packs per day: 0.5 Smoking cigarettes per day: 10.0 Years smoked: 65 Smoking pack-years: 32.50 Smoking status: Former smoker Tobacco type: cigarettes Second hand tobacco smoke exposure: No Smoking end date: 06/24/24 Additional smoking assessment comments: SMOKING 0.5 PACK/DAY Alcohol intake: never Substance use: never Substance use type: does not use Do You Feel Safe in your Home?: Yes Lack of Transportation: No Lack of Food: Never True Current Housing: I Have Housing Concerned About Future Housing: No Difficulty Paying Gas/Electric Bills: No Difficulty Paying for Meds: No Currently Unemployed: No Education: High School Diploma/GED Difficulty w/ Childcare or Family Care: No Living arrangements: with family Additional living arrangements comments: and daughter 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 100 mcg-umeclid 1 inh inhalation .QD 12/22/23 08/12/24 History 62.5 mcg-vilant 25 mcg inhalat.powder (Trelegy Ellipta) metoprolol succinate 100 mg 100 mg PO QAM 01/04/24 08/12/24 History tablet,extended release 24 hr montelukast 10 mg tablet 10 mg PO HS 02/29/24 08/12/24 History gabapentin 100 mg capsule 300 mg PO HS 03/28/24 08/12/24 History simvastatin 10 mg tablet 10 mg PO DAILY 05/25/24 08/12/24 History tamsulosin 0.4 mg capsule 0.4 mg PO QAM #30 caps 05/26/24 08/12/24 Rx aspirin 81 mg tablet,delayed 81 mg PO QAM #30 tabs 06/12/24 08/12/24 Rx release polyethylene glycol 3350 17 gram 17 g PO QAM PRN constipation #30 ea 06/12/24 08/12/24 Rx oral powder packet (Miralax) alprazolam 0.25 mg tablet 0.25 mg PO BID #60 tabs 07/12/24 08/12/24 Rx finasteride 5 mg tablet (Proscar) 5 mg PO QAM #30 tabs 08/10/24 08/12/24 Rx albuterol sulfate 90 mcg/actuation 2 puff inhalation Q6H PRN 08/12/24 08/12/24 History aerosol inhaler Shortness Of Breath sennosides 8.6 mg-docusate sodium 2 tab-cap PO BID constipation 08/12/24 08/12/24 History 50 mg tablet (Senokot-S) Allergies Allergy/AdvReac Type Severity Reaction Status Date / Time No Known Allergies Allergy Verified 07/18/24 13:06 Vital Signs Vital Signs - 24 hr 08/11/24 21:17 08/12/24 00:08 08/12/24 00:30 Temperature 97.5 F L Pulse Rate 70 70 Respiratory Rate 16 14 Blood Pressure 112/66 150/65 H Pulse Oximetry 98 97 96 Oxygen Delivery Room Air 08/12/24 03:00 08/12/24 02:10 08/12/24 03:51 Temperature 97.5 F L Pulse Rate 71 80 Respiratory Rate 18 25 H Blood Pressure 142/56 H Pulse Oximetry 96 96 96 Oxygen Delivery Room Air Autopap 08/12/24 05:59 Temperature 98.3 F Pulse Rate 71 Respiratory Rate 18 Blood Pressure 153/61 H Pulse Oximetry 98 Oxygen Delivery Exam Narrative: AF HR 70 RR 18 SpO2 97 BP 148/64 General: Male in no acute respiratory distress who is nontoxic appearing, lying semi recumbent in bed. HEENT: Normocephalic. Atraumatic. Extraocular movement intact. Sclera clear and anicteric.No facial asymmetry. Neck: Neck was supple. No dominant adenopathy, thyromegaly or masses. 2+ carotid upstrokes without bruits. Chest: Lungs are diminished to auscultation bilaterally with coarse lungs sounds and slight wheeze. CV: Heart was regular rate and rhythm. S1/S2. No murmurs, gallops, or rubs. Abd: Abdomen was soft. Nontender. Nondistended. Positive bowel sounds. No organomegaly or masses. Ext: No clubbing, cyanosis. 1+ pitting edema to the BLE. 2+ DP pulses bilaterally. Neuro: Patient is alert and oriented x4. Strenth is 5/5 in both upper and lower extremities. Cranial nerves 2-12 are intact. Speech is clear. Psych: Normal mood and affect. Patient is pleasant and cooperative. Skin: Warm and dry. No rashes noted. H&P: Results Labs Labs: Short CBC 08/11/24 Range/Units 22:38 WBC 8.8 (4.5-10.0) K/mm3 Hgb 10.0 L (14.0-18.0) g/dL Hct 31.2 L (42.0-52.0) % Plt Count 178 (150-375) k/mm3 BMP 08/11/24 22:38 Sodium 136 L Potassium 5.3 H Chloride 109 H Carbon Dioxide 19 L BUN 63 H Creatinine 3.60 H Glucose 82 Calcium 8.9 Liver Function 08/11/24 Range/Units 22:38 Total Bilirubin 0.7 (0.2-1.3) mg/dL AST 38 (17-59) U/L ALT 28 (6-50) U/L Alkaline Phosphatase 70 (38-126) U/L Albumin 3.9 (3.5-5.1) g/dL Assessment and Plan Assessment and plan (1) CHF exacerbation: Code(s): I50.9 - Heart failure, unspecified Status: Acute Assessment and Plan: Patient was recently admitted from 06/07-06/13/2024 for similar symptoms resulting in a new diagnosis of heart failure with reduced EF. Per chart review on 06/09 there was a discussion about dialysis, however patient declined resulting in no cardiac catheterization being performed. He remained on his beta-alli metoprolol succinate 100 mg p.o. q.a.m. at that time. Unable to start lasix, spironolactone or Jardiance due to his severely reduced GFR at time of discharge. Patient was placed on a low sodium and diet and fluid restriction on discharge. - Patient reporting decrease UOP, possible etiology of volume overload and HF exacerbation. - BNP: > 30,000 - EKG: Atrial pacing. 70 beats per minute. No signs of ischemia. - Chest XR: Cardiomegaly with cardiac decompensation and pulmonary edema. Pneumonitis is not excluded. Bilateral basilar atelectasis with minimal effusion. - Echo 06/08/2024: LVEF 45-50% with mild pulmonary hypertension - Lasix 40 mg IV BID, closely monitor kidney function. Nephrology consulted. 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 Baseline creatinine is approximately 2.7 - 3.5 with GFR of 20 per chart review. BUN/Cr 63/3.6 with GFR 16 on admission. - Monitor vital signs, I&Os, BUN/creatinine, daily weights, neuro status and patient is a fall risk - Monitor serum electrolytes, Keep serum Potassium>4 and serum Magnesium>2 and CBC - Avoid nephrotoxic medications - Renally dose medications - Nephrology consulted (4) Essential hypertension: Code(s): I10 - Essential (primary) hypertension Status: Chronic Assessment and Plan: Chronic, continue home medications. - amlodipine 10 mg daily - metoprolol 100 mg daily - monitor (5) Obstructive sleep apnea: Code(s): G47.33 - Obstructive sleep apnea (adult) (pediatric) Status: Chronic Assessment and Plan: Continue CPAP Plan Disposition: 83-year-old male with a past medical history bilateral carotid stenosis, CKD stage 3, COPD, chronic anemia, hypertension, lupus/SLE, ARTURO compliant with CPAP, overactive bladder, urinary retention, peripheral artery disease, rheumatoid arthritis, Sjogren syndrome presents to the hospital for worsening shortness of breath 2/2 CHF exacerbation. On IV lasix. Nephrology consulted given patients CKD and severely reduced GFR. Quality VTE Prophylaxis VTE prophylaxis: pharmacologic ordered Hospitalist MIPS Advance Care Plan I have confirmed that the patient's Advanced Care Plan is present, code status is documented, or surrogate decision maker is listed in patient medical record.: Yes Medication Reconciliation I have utilized all available resources to obtain, update and review the patients current medications (includes all prescriptions, OTC, herbals, cannabis, and nutritional supplements).: Yes
[2024-08-12] MEDS: ALPRAZolam (*CRX) 0.25 MG TABLET PO ×2 (07:55→17:40)
[2024-08-12] MEDS: SODIUM BICARBONATE TAB 650 MG TABLET PO ×2 (07:56→17:40)
[2024-08-12] MEDS: HYDROXYCHLOROQUINE SULFATE 200 MG TABLET PO ×2 (07:56→17:40)
[2024-08-12] MEDS: amLODIPine BESYLATE 10 MG TABLET PO (07:56)
[2024-08-12] MEDS: ASPIRIN 81 MG ENTERIC TABLET PO (07:56)
[2024-08-12] MEDS: METOPROLOL SUCCINATE EXT REL 100 MG TABCR PO (07:56)
[2024-08-12] MEDS: FINASTERIDE 5 MG TABLET PO (07:57)
[2024-08-12] MEDS: FUROSEMIDE INJ 40 MG/4 ML VIAL IV PUSH ×2 (08:02→17:41)
[2024-08-12] MEDS: ALBUTEROL SULFATE (*SP) AEROSOL 1 PUFF 2 PUFF INHALATION ×2 (08:09→13:40)
[2024-08-12] MEDS: FLUTICASONE/UMECLIDIN/VILANTER 100-62.5-25 MCG ELLIPTA 1 PUFF INHALATION (08:09)
[2024-08-12 08:34] LABS: Glucose Point of Care 99 mg/dl (65-105)
--- NOTE | 2024-08-12 11:50 | P.CONNP_ITS ---
History of Present Illness Reason for Consult Consult date: 08/12/24 Reason for consult: chronic renal failure Chief Complaint Chief complaint: CHF exacerbation, fluid overload Review of Systems Review of Systems: As per HPI. [facility] Past Medical History Medical History Bilateral carotid artery stenosis 50 to 69% stenosis on the right and greater than 70% stenosis on the left CKD (chronic kidney disease) Stage III managed [address] Dr. Quintin Downey COPD exacerbation COVID Erythropoietin deficiency anemia Essential hypertension History of prostate cancer HTN (hypertension) Lupus (systemic lupus erythematosus) Monoclonal gammopathy Obstructive sleep apnea With nasal CPAP use Orthostasis Overactive bladder Peripheral artery disease With moderately decreased ABIs bilaterally December 2011 Rectus diastasis Renal mass, right Rheumatoid arthritis Screening for thyroid disorder Sjogrens syndrome Spinal stenosis at L4-L5 level Surgical History Surgical History H/O bilateral inguinal hernia repair pen reccurent RIH and open L ing. hernia rep w/ mesh 03/12/24 History of permanent cardiac pacemaker placement History of right inguinal hernia repair 2016, previous repair of mesh failure History of total bilateral knee replacement With the right knee being replaced once in the left knee being replaced 3 times with chronic left knee pain Hx of left inguinal hernia repair 2016, repair of mesh failure S/P bilateral inguinal hernia repair Family History Family History Mother Cirrhosis Sibling Esophageal cancer Father Acute myocardial infarction Lung disease Heart disease Sibling Esophageal cancer Skin cancer Social History Social History Social History: Patient continues to smoke half a pack a day. Denies drug use. No alcohol use. Lives at home with his and daughter. Code status: Full code Healthcare power of core placer: Linda Frank () Smoking packs per day: 0.5 Smoking cigarettes per day: 10.0 Years smoked: 65 Smoking pack-years: 32.50 Smoking status: Current every day smoker Tobacco type: cigarettes Second hand tobacco smoke exposure: No Smoking end date: 06/24/24 Additional smoking assessment comments: SMOKING 0.5 PACK/DAY CURRENTLY Alcohol intake: never Substance use: never Substance use type: does not use Do You Feel Safe in your Home?: Yes Lack of Transportation: No Lack of Food: Never True Current Housing: I Have Housing Concerned About Future Housing: No Difficulty Paying Gas/Electric Bills: No Difficulty Paying for Meds: No Currently Unemployed: No Education: High School Diploma/GED Difficulty w/ Childcare or Family Care: No Living arrangements: with family Additional living arrangements comments: 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 100 mcg-umeclid 1 inh inhalation .QD 12/22/23 08/12/24 History 62.5 mcg-vilant 25 mcg inhalat.powder (Trelegy Ellipta) metoprolol succinate 100 mg 100 mg PO QAM 01/04/24 08/12/24 History tablet,extended release 24 hr montelukast 10 mg tablet 10 mg PO HS 02/29/24 08/12/24 History gabapentin 100 mg capsule 300 mg PO HS 03/28/24 08/12/24 History simvastatin 10 mg tablet 10 mg PO DAILY 05/25/24 08/12/24 History tamsulosin 0.4 mg capsule 0.4 mg PO QAM #30 caps 05/26/24 08/12/24 Rx aspirin 81 mg tablet,delayed 81 mg PO QAM #30 tabs 06/12/24 08/12/24 Rx release polyethylene glycol 3350 17 gram 17 g PO QAM PRN constipation #30 ea 06/12/24 08/12/24 Rx oral powder packet (Miralax) alprazolam 0.25 mg tablet 0.25 mg PO BID #60 tabs 07/12/24 08/12/24 Rx finasteride 5 mg tablet (Proscar) 5 mg PO QAM #30 tabs 08/10/24 08/12/24 Rx albuterol sulfate 90 mcg/actuation 2 puff inhalation Q6H PRN 08/12/24 08/12/24 History aerosol inhaler Shortness Of Breath sennosides 8.6 mg-docusate sodium 2 tab-cap PO BID constipation 08/12/24 08/12/24 History 50 mg tablet (Senokot-S) Allergies Allergy/AdvReac Type Severity Reaction Status Date / Time No Known Allergies Allergy Verified 07/18/24 13:06 Vital Signs Vital Signs Temp Pulse Resp BP Pulse Ox O2 Del Method 08/12/24 08:00 98.1 F 70 18 148/64 H 97 08/12/24 08:00 72 20 08/12/24 08:00 76 20 92 Room Air 08/12/24 07:56 80 08/12/24 05:59 98.3 F 71 18 153/61 H 98 08/12/24 03:51 80 25 H 96 Autopap 08/12/24 02:10 97.5 F L 71 18 142/56 H 96 08/12/24 03:00 96 Room Air 08/12/24 00:30 96 Room Air 08/12/24 00:08 70 14 150/65 H 97 08/11/24 21:17 97.5 F L 70 16 112/66 98 Exam Narrative: GENERAL APPEARANCE: elderly but well developed well nourished male in no acute distress HEENT: normocephalic, atraumatic, normal conjunctiva and sclera, nares patient NECK: no lymphadenopathy, thyromegaly, or JVD MOUTH: normal lips, teeth, and gums CARDIOVASCULAR: RRR, normal S1 and S2, no rub RESPIRATORY: coarse breath sounds with bibasilar crackles ABDOMEN: soft, nontender, nondistended, positive bowel sounds present EXTREMITIES: no evidence of cyanosis, clubbing; 2+ edema NEUROLOGICAL: alert and oriented x 3; CN II - XII intact bilaterally; no focal deficits noted Results Lab Results 08/11/24 22:38 08/11/24 22:38 Lab results: Most recent lab results Calcium 8.9 mg/dL (8.4-10.2) 08/11/24 22:38
[2024-08-12] MEDS: GABAPENTIN 300 MG CAPSULE PO (20:59)
[2024-08-12] MEDS: HEPARIN SODIUM 5,000 UNITS/ML VIAL 5000 UNITS SUB-Q (20:59)
[2024-08-13] VITALS (11 sets, daily range): BP systolic 124–149; BP diastolic 56–69; PULSE 67–98; RESP 14–23; TEMP 36.3–37.2; O2SAT 92–95
[2024-08-13 05:42] LABS: Basophils Percent Auto 0.2 % (0.2-1.2); Hematocrit 30.2 % (42.0-52.0); Hemoglobin 9.8 g/dL (14.0-18.0); Immature Granulocyte Absolute 0.05 K/mm3 (0.00-0.031); Immature Granulocyte Percent A 0.6 % (0-0.5); Lymphocytes Absolute Auto 0.84 K/mm3 (0.9-3.2); Lymphocytes Percent Auto 9.8 % (18.3-44.2); Mean Corpuscular HGB Conc 32.5 g/dl (32-36); Mean Corpuscular Hemoglobin 32.3 pg (26-34); Mean Corpuscular Volume 99.7 fl (80-100); Mean Platelet Volume 10.2 fl (7.4-10.4); Monocytes Absolute Auto 0.8 K/mm3 (0.1-0.6); Monocytes Percent Auto 9.7 % (2.6-8.5); Neutrophils Absolute Auto 6.8 K/mm3 (1.3-6.7); Neutrophils Percent Auto 79.7 % (45.5-73.1); Platelet Count Result 171 k/mm3 (150-375); Red Blood Count 3.03 M/mm3 (4.6-6.20); Red Cell Distribution Width 13.7 % (11.5-14.5); White Blood Count 8.6 K/mm3 (4.5-10.0)
[2024-08-13 05:50] LABS: Alanine Aminotransferase 23 U/L (6-50); Albumin Level 3.8 g/dL (3.5-5.1); Alkaline Phosphatase 61 U/L (38-126); Anion Gap 12 mmol/L (4-12); Aspartate Amino Transferase 31 U/L (17-59); Bilirubin,Total 0.8 mg/dL (0.2-1.3); Blood Urea Nitrogen 71 mg/dL (9-20); Calcium 8.9 mg/dL (8.4-10.2); Carbon Dioxide 18 mmol/L (22-30); Chloride 106 mmol/L (98-107); Estimated CRCL calculation 13 ml/min; Estimated Glomerular Filt Rate 16; Glucose 81 mg/dL (65-110); Potassium 4.5 mmol/L (3.4-5.0); Sodium 136 mmol/L (137-145)
--- NOTE | 2024-08-13 07:30 | P.PNIM_ITS ---
Progress Note: A&P Assessment and Plan (1) CHF exacerbation: Code(s): I50.9 - Heart failure, unspecified Status: Acute Assessment and Plan: - Patient reporting decrease UOP, possible etiology of volume overload and HF exacerbation. - BNP: > 30,000 - EKG: Atrial pacing. 70 beats per minute. No signs of ischemia. - Chest XR: Cardiomegaly with cardiac decompensation and pulmonary edema. Pneumonitis is not excluded. Bilateral basilar atelectasis with minimal effusion. - Echo 06/08/2024: LVEF 45-50% with mild pulmonary hypertension - nephrology managing diuretics. - Renal dialysis - Monitor vital signs, I&Os, BUN/creatinine, daily weights, neuro status and patient is a fall risk - Monitor serum electrolytes, Keep serum Potassium>4 and serum Magnesium>2 and CBC - PT/OT eval and teat (2) Fluid overload: Code(s): E87.70 - Fluid overload, unspecified Status: Acute Assessment and Plan: see plan above #1 CHF exacerbation Improving (3) CKD (chronic kidney disease): Qualifiers: Chronic kidney disease stage: unspecified stage Qualified Code(s): N18.9 - Chronic kidney disease, unspecified Code(s): N18.9 - Chronic kidney disease, unspecified Status: Chronic Assessment and Plan: 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 Baseline creatinine is approximately 2.7 - 3.5 with GFR of 20 per chart review. BUN/Cr 63/3.6 with GFR 16 on admission. - Monitor vital signs, I&Os, BUN/creatinine, daily weights, neuro status and patient is a fall risk - Monitor serum electrolytes, Keep serum Potassium>4 and serum Magnesium>2 and CBC - Avoid nephrotoxic medications - Renally dose medications - Nephrology consulted Slight bump in creatinine today (4) Essential hypertension: Code(s): I10 - Essential (primary) hypertension Status: Chronic Assessment and Plan: Chronic, continue home medications. - amlodipine 10 mg daily - metoprolol 100 mg daily - monitor (5) Obstructive sleep apnea: Code(s): G47.33 - Obstructive sleep apnea (adult) (pediatric) Status: Chronic Assessment and Plan: Continue CPAP (6) Wheezing: Code(s): R06.2 - Wheezing Status: Acute Assessment and Plan: DuoNebs Guaifenesin Plan Disposition: 83-year-old male with a past medical history bilateral carotid stenosis, CKD stage 3, COPD, chronic anemia, hypertension, lupus/SLE, ARTURO compliant with CPAP, overactive bladder, urinary retention, peripheral artery disease, rheumatoid arthritis, Sjogren syndrome presents to the hospital for worsening shortness of breath 2/2 CHF exacerbation. On IV lasix. Nephrology consulted given patients CKD and severely reduced GFR. Time Spent With Patient Time with patient: Greater than 35 minutes Subjective Date/time seen: 08/13/24 07:30 Interval history: 83-year-old male with a past medical history bilateral carotid stenosis, CKD stage 3, COPD, chronic anemia, hypertension, lupus/SLE, ARTURO compliant with CPAP, overactive bladder, urinary retention, peripheral artery disease, rheumatoid arthritis, Sjogren syndrome presents to the hospital for worsening shortness of breath 2/2 CHF exacerbation. Patient complains of cough, generalized weakness, has expiratory wheezes on exam will order DuoNebs, a chest x-ray, and PT OT. Seen by Nephrology this morning will transition to oral Lasix either today or tomorrow. Chest x-ray stable, no signs of pneumonia Review of Systems Review of Systems: All systems reviewed & are unremarkable except as noted in HPI and below Constitutional: Constitutional: Reports no additional constitutional complaints Eyes: Eyes: Reports no additional eye complaints ENT: Reports as per HPI Cardiovascular: Cardiovascular: Reports no additional cardiovascular complaints Respiratory: Respiratory: Reports cough, Reports dyspnea, Reports dyspnea on exertion and Reports wheezing Gastrointestinal: Gastrointestinal: Reports no additional gastrointestinal complaints Genitourinary: Genitourinary: Reports as per HPI Musculoskeletal: Musculoskeletal: Reports no additional musculoskeletal complaints Integumentary/Breasts: Skin/Breast: Reports as per HPI Neurologic: Reports as per HPI Psychiatric: Psychiatric: Reports as per HPI Exam Narrative: AF HR 70 RR 18 SpO2 97 BP 148/64 General: Male in no acute respiratory distress who is nontoxic appearing, lying semi recumbent in bed. HEENT: Normocephalic. Atraumatic. Extraocular movement intact. Sclera clear and anicteric.No facial asymmetry. Neck: Neck was supple. No dominant adenopathy, thyromegaly or masses. 2+ carotid upstrokes without bruits. Chest: Expiratory wheezes throughout. CV: Heart was regular rate and rhythm. S1/S2. No murmurs, gallops, or rubs. Abd: Abdomen was soft. Nontender. Nondistended. Positive bowel sounds. No organomegaly or masses. Ext: No clubbing, cyanosis. 2+ DP pulses bilaterally. Neuro: Patient is alert and oriented x4. Strength is 5/5 in both upper and lower extremities. Cranial nerves 2-12 are intact. Speech is clear. Psych: Normal mood and affect. Patient is pleasant and cooperative. Skin: Warm and dry. No rashes noted. Objective Data Vital Signs Vital Signs: Vital Signs - 24 hr 08/12/24 07:56 08/12/24 08:00 08/12/24 08:00 Temperature Pulse Rate 80 76 72 Respiratory Rate 20 20 Blood Pressure Pulse Oximetry 92 Oxygen Delivery Room Air 08/12/24 08:00 08/12/24 13:40 08/12/24 16:00 Temperature 98.1 F 97.7 F Pulse Rate 70 69 72 Respiratory Rate 18 18 17 Blood Pressure 148/64 H 142/72 H Pulse Oximetry 97 97 Oxygen Delivery 08/12/24 08:00 08/13/24 00:00 08/13/24 03:01 Temperature 99.0 F Pulse Rate 72 82 Respiratory Rate 18 23 H Blood Pressure 147/62 H Pulse Oximetry 92 95 Oxygen Delivery Room Air Autopap 08/13/24 06:08 Temperature 98.4 F Pulse Rate 67 Respiratory Rate 18 Blood Pressure 149/59 H Pulse Oximetry 94 Oxygen Delivery Intake/Output Intake/Output: Intake & Output 08/10/24 08/11/24 08/12/24 08/13/24 23:59 23:59 23:59 23:59 Intake Total 690 Output Total 1400 475 Balance -710 -475 Meds/Results Medications: Active Medications Generic Name Dose Route Start Last Admin Trade Name Freq PRN Reason Stop Dose Admin Albuterol 2 puff 08/12/24 07:24 08/12/24 13:40 Albuterol Sulfate (*Sp) Aerosol 1 Puff INHALATION 2 puff Q6H PRN Administration Shortness Of Breath Alprazolam 0.25 mg 08/12/24 09:00 08/12/24 17:40 Alprazolam (*Crx) 0.25 Mg Tablet PO 0.25 mg BID NICOLLE Administration Amlodipine Besylate 10 mg 08/12/24 09:00 08/12/24 07:56 Amlodipine Besylate 10 Mg Tablet PO 10 mg QAM NICOLLE Administration Aspirin 81 mg 08/12/24 09:00 08/12/24 07:56 Aspirin 81 Mg Enteric Tablet PO 81 mg QAM NICOLLE Administration Finasteride 5 mg 08/12/24 09:00 08/12/24 07:57 Finasteride 5 Mg Tablet PO 5 mg QAM NICOLLE Administration Fluticasone/Umeclidinium/Vilanterol 1 puff 08/12/24 08:00 08/12/24 08:09 Fluticasone/Umeclidin/Vilanter 100-62.5-25 Mcg Ellipta INHALATION 1 puff DAILYRT NICOLLE Administration Furosemide 40 mg 08/12/24 09:00 08/12/24 17:41 Furosemide Inj 40 Mg/4 Ml Vial IV PUSH 40 mg BID NICOLLE Administration Gabapentin 300 mg 08/12/24 21:00 08/12/24 20:59 Gabapentin 300 Mg Capsule PO 300 mg HS NICOLLE Administration Heparin Sodium (Porcine) 5,000 units 08/12/24 21:00 08/12/24 20:59 Heparin Sodium 5,000 Units/Ml Vial SUB-Q 5,000 units Q12HR NICOLLE Administration Hydroxychloroquine Sulfate 200 mg 08/12/24 09:00 08/12/24 17:40 Hydroxychloroquine Sulfate 200 Mg Tablet PO 200 mg BID NICOLLE Administration Metoprolol Succinate 100 mg 08/12/24 09:00 08/12/24 07:56 Metoprolol Succinate Ext Rel 100 Mg Tabcr PO 100 mg QAM NICOLLE Administration Sodium Bicarbonate 650 mg 08/12/24 09:00 08/12/24 17:40 Sodium Bicarbonate Tab 650 Mg Tablet PO 650 mg BID NICOLLE Administration Tamsulosin HCl 0.4 mg 08/12/24 09:00 Tamsulosin Hcl 0.4 Mg Capsule PO QAM [facility] Radiology Results: XR chest 2V 08/11/2024 Ordering provider: SHUN Berger History: 83 years Male with . cough xyest. hx CHF, COPD. r/o pneumonia . Comparison: June 28, 2024 FINDINGS: MEDIASTINUM: The cardiac silhouette is slightly enlarged. Left bipolar pacemaker. Congestive papa. LUNGS: No pneumothorax. Prominent markings bilaterally with interstitial thickening. Atelectasis in the lung bases with minimal effusion bilaterally. OTHER: No free air under the diaphragm. IMPRESSION: Cardiomegaly with cardiac decompensation and pulmonary edema. Pneumonitis is not excluded. Bilateral basilar atelectasis with minimal effusion. Labs Labs: Laboratory Results - last 24 hr 08/12/24 08/13/24 08:28 05:04 WBC 8.6 RBC 3.03 L Hgb 9.8 L Hct 30.2 L MCV 99.7 MCH 32.3 MCHC 32.5 RDW 13.7 Plt Count 171 MPV 10.2 Immature Gran % (Auto) 0.6 H Neut % (Auto) 79.7 H Lymph % (Auto) 9.8 L [place] % (Auto) 9.7 H Eos % (Auto) 0.0 Baso % (Auto) 0.2 Lymph # (Auto) 0.84 L [place] # (Auto) 0.8 H Eos # (Auto) 0.0 Baso # (Auto) 0.0 Abs Immat Gran (auto) 0.05 H Absolute Neuts (auto) 6.8 H Absolute Nucleated RBC 0.000 Nucleated RBC % 0.0 Sodium 136 L Potassium 4.5 Chloride 106 Carbon Dioxide 18 L Anion Gap 12 BUN 71 H Creatinine 3.70 H Estim Creat Clear Calc 13 Estimated GFR 16 L Glucose 81 POC Capillary Glucose 99 Calcium 8.9 Total Bilirubin 0.8 AST 31 ALT 23 Alkaline Phosphatase 61 Total Protein 7.0 Albumin 3.8 Quality VTE Prophylaxis VTE prophylaxis: pharmacologic ordered
[2024-08-13] MEDS: ALPRAZolam (*CRX) 0.25 MG TABLET PO ×2 (08:38→17:02)
[2024-08-13] MEDS: ASPIRIN 81 MG ENTERIC TABLET PO (08:38)
[2024-08-13] MEDS: amLODIPine BESYLATE 10 MG TABLET PO (08:38)
[2024-08-13] MEDS: FINASTERIDE 5 MG TABLET PO (08:38)
[2024-08-13] MEDS: FUROSEMIDE INJ 40 MG/4 ML VIAL IV PUSH ×2 (08:39→17:03)
[2024-08-13] MEDS: HEPARIN SODIUM 5,000 UNITS/ML VIAL 5000 UNITS SUB-Q ×2 (08:39→20:15)
[2024-08-13] MEDS: HYDROXYCHLOROQUINE SULFATE 200 MG TABLET PO ×2 (08:40→17:02)
[2024-08-13] MEDS: METOPROLOL SUCCINATE EXT REL 100 MG TABCR PO (08:40)
[2024-08-13] MEDS: SODIUM BICARBONATE TAB 650 MG TABLET PO ×2 (08:40→17:02)
[2024-08-13] MEDS: TAMSULOSIN HCL 0.4 MG CAPSULE PO (08:40)
[2024-08-13] MEDS: FLUTICASONE/UMECLIDIN/VILANTER 100-62.5-25 MCG ELLIPTA 1 PUFF INHALATION (08:51)
[2024-08-13] MEDS: guaiFENesin/DEXTROMETHORPHAN 10 ML UDC PO ×3 (12:06→22:42)
[2024-08-13] MEDS: IPRATROPIUM 0.5 MG/ALBUTEROL SULFATE 2.5 MG AMPUL.NEB 3 ML INHALATION ×2 (13:21→19:21)
--- NOTE | 2024-08-13 18:26 | PM.PNNEP ---
Subjective Date/time seen: 08/13/24 11:50 Interval history: Follow-up for chronic kidney disease. Objective Data Vital Signs Vital Signs: Vital Signs Temp Pulse Resp BP Pulse Ox O2 Del Method FiO2 08/13/24 11:21 92 Room Air 21 08/13/24 08:00 Room Air 08/13/24 08:51 83 20 08/13/24 08:51 93 Room Air 21 08/13/24 08:00 98.0 F 97 14 147/69 H 94 08/13/24 08:40 98 08/13/24 06:08 98.4 F 67 18 149/59 H 94 08/13/24 03:01 82 23 H 95 Autopap 08/13/24 00:00 99.0 F 72 18 147/62 H 92 Intake/Output Intake/Output: Intake & Output 08/10/24 08/11/24 08/12/24 08/13/24 23:59 23:59 23:59 23:59 Intake Total 690 720 Output Total 1400 1075 Balance -710 -355 Meds/Results Medications: Active Medications Generic Name Dose Route Start Last Admin Trade Name Freq PRN Reason Stop Dose Admin Albuterol 2 puff 08/12/24 07:24 08/12/24 13:40 Albuterol Sulfate (*Sp) Aerosol 1 Puff INHALATION 2 puff Q6H PRN Administration Shortness Of Breath Albuterol/Ipratropium 3 ml 08/13/24 14:00 08/13/24 13:21 Ipratropium 0.5 Mg/Albuterol Sulfate 2.5 Mg Ampul.Neb 3 Ml INHALATION 3 ml Q6HRT NICOLLE Administration Alprazolam 0.25 mg 08/12/24 09:00 08/13/24 17:02 Alprazolam (*Crx) 0.25 Mg Tablet PO 0.25 mg BID NICOLLE Administration Amlodipine Besylate 10 mg 08/12/24 09:00 08/13/24 08:38 Amlodipine Besylate 10 Mg Tablet PO 10 mg QAM NICOLLE Administration Aspirin 81 mg 08/12/24 09:00 08/13/24 08:38 Aspirin 81 Mg Enteric Tablet PO 81 mg QAM NICOLLE Administration Bumetanide 1 mg 08/13/24 21:00 Bumetanide Inj 1 Mg/4 Ml Vial IV PUSH 08/13/24 21:01 ONCE ONE Finasteride 5 mg 08/12/24 09:00 08/13/24 08:38 Finasteride 5 Mg Tablet PO 5 mg QAM NICOLLE Administration Fluticasone/Umeclidinium/Vilanterol 1 puff 08/12/24 08:00 08/13/24 08:51 Fluticasone/Umeclidin/Vilanter 100-62.5-25 Mcg Ellipta INHALATION 1 puff DAILYRT NICOLLE Administration Gabapentin 300 mg 08/12/24 21:00 08/12/24 20:59 Gabapentin 300 Mg Capsule PO 300 mg HS NICOLLE Administration Guaifenesin/Dextromethorphan 10 ml 08/13/24 11:00 08/13/24 16:49 Guaifenesin/Dextromethorphan 10 Ml Udc PO 08/15/24 09:00 Not Given Q4H NICOLLE Heparin Sodium (Porcine) 5,000 units 08/12/24 21:00 08/13/24 08:39 Heparin Sodium 5,000 Units/Ml Vial SUB-Q 5,000 units Q12HR NICOLLE Administration Hydroxychloroquine Sulfate 200 mg 08/12/24 09:00 08/13/24 17:02 Hydroxychloroquine Sulfate 200 Mg Tablet PO 200 mg BID NICOLLE Administration Metoprolol Succinate 100 mg 08/12/24 09:00 08/13/24 08:40 Metoprolol Succinate Ext Rel 100 Mg Tabcr PO 100 mg QAM NICOLLE Administration Sodium Bicarbonate 650 mg 08/12/24 09:00 08/13/24 17:02 Sodium Bicarbonate Tab 650 Mg Tablet PO 650 mg BID NICOLLE Administration Tamsulosin HCl 0.4 mg 08/12/24 09:00 08/13/24 08:40 Tamsulosin Hcl 0.4 Mg Capsule PO 0.4 mg QAM NICOLLE Administration Radiology Results: ITS Impressions Chest X-Ray 08/13/24 13:14 IMPRESSION: Bibasilar atelectasis versus pneumonia with bilateral pleural effusion. Underlying pulmonary edema cannot be excluded. Changes are slightly increased compared to previous study. Labs Labs: Laboratory Tests 08/13/24 05:04 08/13/24 05:04 Calcium 8.9 Total Bilirubin 0.8 AST 31 ALT 23 Alkaline Phosphatase 61 Total Protein 7.0 Albumin 3.8
[2024-08-13] MEDS: GABAPENTIN 300 MG CAPSULE PO (20:15)
[2024-08-13] MEDS: BUMETANIDE INJ 1 MG/4 ML VIAL IV PUSH (20:18)
[2024-08-14] VITALS (11 sets, daily range): BP systolic 133–140; BP diastolic 55–88; PULSE 70–74; RESP 18–20; TEMP 36.6–36.7; O2SAT 91–93
[2024-08-14 05:03] LABS: Basophils Percent Auto 0.3 % (0.2-1.2); Hematocrit 32.4 % (42.0-52.0); Hemoglobin 10.2 g/dL (14.0-18.0); Immature Granulocyte Absolute 0.04 K/mm3 (0.00-0.031); Immature Granulocyte Percent A 0.6 % (0-0.5); Lymphocytes Absolute Auto 0.93 K/mm3 (0.9-3.2); Lymphocytes Percent Auto 14.2 % (18.3-44.2); Mean Corpuscular HGB Conc 31.5 g/dl (32-36); Mean Corpuscular Hemoglobin 32.6 pg (26-34); Mean Corpuscular Volume 103.5 fl (80-100); Mean Platelet Volume 10.3 fl (7.4-10.4); Monocytes Absolute Auto 0.8 K/mm3 (0.1-0.6); Monocytes Percent Auto 11.4 % (2.6-8.5); Neutrophils Absolute Auto 4.8 K/mm3 (1.3-6.7); Neutrophils Percent Auto 73.5 % (45.5-73.1); Platelet Count Result 179 k/mm3 (150-375); Red Blood Count 3.13 M/mm3 (4.6-6.20); Red Cell Distribution Width 13.6 % (11.5-14.5); White Blood Count 6.6 K/mm3 (4.5-10.0)
[2024-08-14 05:11] LABS: Alanine Aminotransferase 21 U/L (6-50); Albumin Level 3.5 g/dL (3.5-5.1); Alkaline Phosphatase 54 U/L (38-126); Anion Gap 9 mmol/L (4-12); Aspartate Amino Transferase 27 U/L (17-59); Bilirubin,Total 0.9 mg/dL (0.2-1.3); Blood Urea Nitrogen 80 mg/dL (9-20); Calcium 8.6 mg/dL (8.4-10.2); Carbon Dioxide 21 mmol/L (22-30); Chloride 104 mmol/L (98-107); Estimated CRCL calculation 13 ml/min; Estimated Glomerular Filt Rate 16; Glucose 79 mg/dL (65-110); Potassium 3.8 mmol/L (3.4-5.0); Sodium 134 mmol/L (137-145)
[2024-08-14] MEDS: guaiFENesin/DEXTROMETHORPHAN 10 ML UDC PO ×5 (06:00→23:01)
--- NOTE | 2024-08-14 07:27 | PM.IMPN ---
Progress Note: A&P Assessment and Plan (1) CHF exacerbation: Code(s): I50.9 - Heart failure, unspecified Status: Acute Assessment and Plan: Patient was recently admitted from 06/07-06/13/2024 for similar symptoms resulting in a new diagnosis of heart failure with reduced EF. Per chart review on 06/09 there was a discussion about dialysis, however patient declined resulting in no cardiac catheterization being performed. He remained on his beta-alli metoprolol succinate 100 mg p.o. q.a.m. at that time. Unable to start lasix, spironolactone or Jardiance due to his severely reduced GFR at time of discharge. Patient was placed on a low sodium and diet and fluid restriction on discharge. - Patient reporting decrease UOP, possible etiology of volume overload and HF exacerbation. - BNP: > 30,000 - EKG: Atrial pacing. 70 beats per minute. No signs of ischemia. - Chest XR 08/11: Cardiomegaly with cardiac decompensation and pulmonary edema. Pneumonitis is not excluded. Bilateral basilar atelectasis with minimal effusion. - Chest XR 08/13: Bibasilar atelectasis versus pneumonia with bilateral pleural effusion. Underlying pulmonary edema cannot be excluded. Changes are slightly increased compared to previous study. - Chest XR 08/14: Improved airspace opacities in the lower lung zones, consistent with atelectasis versus pneumonia. Left ventricular enlargement of the heart. - Echo 06/08/2024: LVEF 45-50% with mild pulmonary hypertension - Bumex 1 mg BID - Renal dialysis diet - Monitor vital signs, I&Os, BUN/creatinine, daily weights, neuro status and patient is a fall risk - Monitor serum electrolytes, Keep serum Potassium>4 and serum Magnesium>2 and CBC (2) Fluid overload: Code(s): E87.70 - Fluid overload, unspecified Status: Acute Assessment and Plan: see plan above #1 CHF execerbation (3) CKD (chronic kidney disease): Qualifiers: Chronic kidney disease stage: unspecified stage Qualified Code(s): N18.9 - Chronic kidney disease, unspecified Code(s): N18.9 - Chronic kidney disease, unspecified Status: Chronic Assessment and Plan: 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 Baseline creatinine is approximately 2.7 - 3.5 with GFR of 20 per chart review. However most recently running Cr 3.3-3.7. BUN/Cr 63/3.6 with GFR 16 on admission. - Monitor vital signs, I&Os, BUN/creatinine, daily weights, neuro status and patient is a fall risk - Monitor serum electrolytes, Keep serum Potassium>4 and serum Magnesium>2 and CBC - Avoid nephrotoxic medications - Renally dose medications - Nephrology consulted this may be a situation where we have to accept a higher creatinine in order to maintain relative stability in his volume status with ongoing diuretic therapy may come a point where diuretics alone are not able to keep him stable - hence, he is at risk for PHARMACY STOCK CLERK/dialysis in the future follow trend of repeat labs and UOP (4) Essential hypertension: Code(s): I10 - Essential (primary) hypertension Status: Chronic Assessment and Plan: Chronic, continue home medications. - amlodipine 10 mg daily - metoprolol 100 mg daily - monitor (5) Obstructive sleep apnea: Code(s): G47.33 - Obstructive sleep apnea (adult) (pediatric) Status: Chronic Assessment and Plan: Continue CPAP Plan Disposition: 83-year-old male with a past medical history bilateral carotid stenosis, CKD stage 3, COPD, chronic anemia, hypertension, lupus/SLE, ARTURO compliant with CPAP, overactive bladder, urinary retention, peripheral artery disease, rheumatoid arthritis, Sjogren syndrome presents to the hospital for worsening shortness of breath 2/2 CHF exacerbation. IV lasix transitioned to PO bumex. Nephrology consulted given patients CKD and severely reduced GFR. There may come a point where diuretics alone are not able to keep him stable - hence, he is at risk for PHARMACY STOCK CLERK/dialysis in the future Time Spent With Patient Time with patient: 25 - 35 minutes Subjective Date/time seen: 08/14/24 07:27 Interval history: 83-year-old male with a past medical history bilateral carotid stenosis, CKD stage 3, COPD, chronic anemia, hypertension, lupus/SLE, ARTURO compliant with CPAP, overactive bladder, urinary retention, peripheral artery disease, rheumatoid arthritis, and Sjogren syndrome presents to the hospital for increased shortness of breath. Patient is pleasant sitting up in his chair with at bedside. States that he is feeling better today. Continues to have a slight cough. He was transitioned to PO bumex today. Evaluated by nephrology who state that we may need to accept elevated Cr levels to have a stable volume status and that patient is at risk of dialysis need. Patient denies chest pain, shortness of breath, nausea/vomiting and abdominal pain. Review of Systems Review of Systems: All systems reviewed & are unremarkable except as noted in HPI and below Exam Narrative: AF HR 73 RR 18 SpO2 93 BP 140/88 General: Male in no acute respiratory distress who is nontoxic appearing, lying semi recumbent in bed. HEENT: Normocephalic. Atraumatic.No facial asymmetry. Chest: Lungs are clear but diminished to auscultation bilaterally. CV: Heart was regular rate and rhythm. S1/S2. No murmurs, gallops, or rubs. Abd: Abdomen was soft. Nontender. Nondistended. Positive bowel sounds. No organomegaly or masses. Ext: No clubbing, cyanosis. Improving edema to the BLE. 2+ DP pulses bilaterally. Neuro: Patient is alert and oriented x4. Cranial nerves 2-12 are intact. Speech is clear. Objective Data Vital Signs Vital Signs: Vital Signs - 24 hr 08/13/24 08:40 08/13/24 08:00 08/13/24 08:51 Temperature 98.0 F Pulse Rate 98 97 Respiratory Rate 14 Blood Pressure 147/69 H Pulse Oximetry 94 93 Oxygen Delivery Room Air Fraction of Inspired Oxygen 08/13/24 08:51 08/13/24 08:00 08/13/24 13:21 Temperature Pulse Rate 83 Respiratory Rate 20 Blood Pressure Pulse Oximetry 92 Oxygen Delivery Room Air Room Air Fraction of Inspired Oxygen 08/13/24 13:21 08/13/24 13:26 08/13/24 16:00 Temperature 97.6 F Pulse Rate 71 75 76 Respiratory Rate 20 20 16 Blood Pressure 124/59 L Pulse Oximetry 94 Oxygen Delivery Fraction of Inspired Oxygen 08/13/24 19:21 08/13/24 19:21 08/13/24 20:26 Temperature 97.3 F L Pulse Rate 72 73 Respiratory Rate 16 20 Blood Pressure 135/56 L Pulse Oximetry 92 93 Oxygen Delivery Room Air Fraction of Inspired Oxygen 08/14/24 03:58 Temperature 97.8 F Pulse Rate 71 Respiratory Rate 20 Blood Pressure 140/65 Pulse Oximetry 92 Oxygen Delivery Fraction of Inspired Oxygen Intake/Output Intake/Output: Intake & Output 08/11/24 08/12/24 08/13/24 08/14/24 23:59 23:59 23:59 23:59 Intake Total 690 720 390 Output Total 1400 1750 400 Balance -710 -1030 -10 Meds/Results Medications: Active Medications Generic Name Dose Route Start Last Admin Trade Name Freq PRN Reason Stop Dose Admin Albuterol 2 puff 08/12/24 07:24 08/12/24 13:40 Albuterol Sulfate (*Sp) Aerosol 1 Puff INHALATION 2 puff Q6H PRN Administration Shortness Of Breath Albuterol/Ipratropium 3 ml 08/13/24 14:00 08/14/24 02:15 Ipratropium 0.5 Mg/Albuterol Sulfate 2.5 Mg Ampul.Neb 3 Ml INHALATION Not Given Q6HRT NIOCLLE Alprazolam 0.25 mg 08/12/24 09:00 08/13/24 17:02 Alprazolam (*Crx) 0.25 Mg Tablet PO 0.25 mg BID NICOLLE Administration Amlodipine Besylate 10 mg 08/12/24 09:00 08/13/24 08:38 Amlodipine Besylate 10 Mg Tablet PO 10 mg QAM NICOLLE Administration Aspirin 81 mg 08/12/24 09:00 08/13/24 08:38 Aspirin 81 Mg Enteric Tablet PO 81 mg QAM NICOLLE Administration Bumetanide 1 mg 08/14/24 09:00 Bumetanide 1 Mg Tablet PO BID NICOLLE Finasteride 5 mg 08/12/24 09:00 08/13/24 08:38 Finasteride 5 Mg Tablet PO 5 mg QAM NICOLLE Administration Fluticasone/Umeclidinium/Vilanterol 1 puff 08/12/24 08:00 08/13/24 08:51 Fluticasone/Umeclidin/Vilanter 100-62.5-25 Mcg Ellipta INHALATION 1 puff DAILYRT NICOLLE Administration Gabapentin 300 mg 08/12/24 21:00 08/13/24 20:15 Gabapentin 300 Mg Capsule PO 300 mg HS NICOLLE Administration Guaifenesin/Dextromethorphan 10 ml 08/13/24 11:00 08/14/24 06:00 Guaifenesin/Dextromethorphan 10 Ml Udc PO 08/15/24 09:00 10 ml Q4H NICOLLE Administration Heparin Sodium (Porcine) 5,000 units 08/12/24 21:00 08/13/24 20:15 Heparin Sodium 5,000 Units/Ml Vial SUB-Q 5,000 units Q12HR NICOLLE Administration Hydroxychloroquine Sulfate 200 mg 08/12/24 09:00 08/13/24 17:02 Hydroxychloroquine Sulfate 200 Mg Tablet PO 200 mg BID NICOLLE Administration Metoprolol Succinate 100 mg 08/12/24 09:00 08/13/24 08:40 Metoprolol Succinate Ext Rel 100 Mg Tabcr PO 100 mg QAM NICOLLE Administration Sodium Bicarbonate 650 mg 08/12/24 09:00 08/13/24 17:02 Sodium Bicarbonate Tab 650 Mg Tablet PO 650 mg BID NICOLLE Administration Tamsulosin HCl 0.4 mg 08/12/24 09:00 08/13/24 08:40 Tamsulosin Hcl 0.4 Mg Capsule PO 0.4 mg QAM NICOLLE Administration Radiology Results: ITS Impressions Chest X-Ray 08/14/24 06:17 IMPRESSION: 1. Improved airspace opacities in the lower lung zones, consistent with atelectasis versus pneumonia. 2. Left ventricular enlargement of the heart. Labs Labs: Laboratory Results - last 24 hr 08/14/24 04:37 WBC 6.6 RBC 3.13 L Hgb 10.2 L Hct 32.4 L MCV 103.5 H MCH 32.6 MCHC 31.5 L RDW 13.6 Plt Count 179 MPV 10.3 Immature Gran % (Auto) 0.6 H Neut % (Auto) 73.5 H Lymph % (Auto) 14.2 L [place] % (Auto) 11.4 H Eos % (Auto) 0.0 Baso % (Auto) 0.3 Lymph # (Auto) 0.93 [place] # (Auto) 0.8 H Eos # (Auto) 0.0 Baso # (Auto) 0.0 Abs Immat Gran (auto) 0.04 H Absolute Neuts (auto) 4.8 Absolute Nucleated RBC 0.000 Nucleated RBC % 0.0 Sodium 134 L Potassium 3.8 Chloride 104 Carbon Dioxide 21 L Anion Gap 9 BUN 80 H Creatinine 3.70 H Estim Creat Clear Calc 13 Estimated GFR 16 L Glucose 79 Calcium 8.6 Total Bilirubin 0.9 AST 27 ALT 21 Alkaline Phosphatase 54 Total Protein 6.0 L Albumin 3.5 Quality VTE Prophylaxis VTE prophylaxis: pharmacologic ordered
[2024-08-14] MEDS: IPRATROPIUM 0.5 MG/ALBUTEROL SULFATE 2.5 MG AMPUL.NEB 3 ML INHALATION ×3 (07:36→19:37)
[2024-08-14] MEDS: FLUTICASONE/UMECLIDIN/VILANTER 100-62.5-25 MCG ELLIPTA 1 PUFF INHALATION (07:37)
[2024-08-14] MEDS: METOPROLOL SUCCINATE EXT REL 100 MG TABCR PO (09:24)
[2024-08-14] MEDS: BUMETANIDE 1 MG TABLET PO ×2 (09:24→17:01)
[2024-08-14] MEDS: ASPIRIN 81 MG ENTERIC TABLET PO (09:24)
[2024-08-14] MEDS: FINASTERIDE 5 MG TABLET PO (09:24)
[2024-08-14] MEDS: SODIUM BICARBONATE TAB 650 MG TABLET PO ×2 (09:24→17:01)
[2024-08-14] MEDS: ALPRAZolam (*CRX) 0.25 MG TABLET PO ×2 (09:24→17:01)
[2024-08-14] MEDS: amLODIPine BESYLATE 10 MG TABLET PO (09:24)
[2024-08-14] MEDS: HYDROXYCHLOROQUINE SULFATE 200 MG TABLET PO ×2 (09:25→17:01)
[2024-08-14] MEDS: TAMSULOSIN HCL 0.4 MG CAPSULE PO (09:26)
[2024-08-14] MEDS: HEPARIN SODIUM 5,000 UNITS/ML VIAL 5000 UNITS SUB-Q ×2 (09:26→19:59)
[2024-08-14] MEDS: SENNA/DOCUSATE SODIUM TABLET 2 TAB PO ×2 (09:37→17:01)
[2024-08-14 09:59] LABS: Procalcitonin 0.4 ng/mL
--- NOTE | 2024-08-14 11:20 | P.PNNP_ITS ---
Progress Note: A&P Assessment and Plan (1) Chronic kidney disease, stage IV (severe): Code(s): N18.4 - Chronic kidney disease, stage 4 (severe) Status: Acute Assessment and Plan: * baseline creatinine had been fluctuating ~ 2.7 - 3.5mg/dl in the last year or so * however, more recently with acute hospitalizations, seems to running closer to 3.3 - 3.7mg/dl * this may be a situation where we have to accept a higher creatinine in order to maintain relative stability in his volume status with ongoing diuretic therapy * there may come a point where diuretics alone are not able to keep him stable - hence, he is at risk for [employer]/dialysis in the future * follow trend of repeat labs and UOP (2) CHF exacerbation: Code(s): I50.9 - Heart failure, unspecified Status: Acute Assessment and Plan: * clinically better * last Echo noted: * EF ~ 45-50% * moderate to severe mitral valve regurgitation * mild to moderate tricuspid valve regurgitation * mild pulmonary hypertension, estimated pulmonary arterial systolic pressure is 42 mmHg * volume status better * transitioned to oral diuretic therapy * follow I/Os, daily weights, and respiratory status * continue fluid restriction as well as low salt diet (3) Essential hypertension: Code(s): I10 - Essential (primary) hypertension Status: Chronic Assessment and Plan: * reasonably control at this time * follow trend of hemodynamics (4) Anemia: Qualifiers: Anemia type: unspecified type Qualified Code(s): D64.9 - Anemia, unspecified Code(s): D64.9 - Anemia, unspecified Status: Chronic Assessment and Plan: * H/H relatively stable * partly related to CKD * no need for OCTAVIANO at this time * follow trend (5) Obstructive sleep apnea: Code(s): G47.33 - Obstructive sleep apnea (adult) (pediatric) Status: Chronic Assessment and Plan: * continue CPAP Will continue to follow. Subjective Date/time seen: 08/14/24 11:20 Interval history: Follow-up for chronic kidney disease and CHF/volume overload. Appears to be doing reasonably well at the time of my visit -- sitting up in chair in no apparent distress; reports breathing is stable if not back to baseline currently; renal function/creatinine relatively stable with re-institution of diuretic therapy; no other issues/events overnight or earlier this morning. Objective Data Vital Signs Vital Signs: Vital Signs Temp Pulse Resp BP Pulse Ox O2 Del Method FiO2 08/14/24 10:33 Room Air 08/14/24 09:45 73 140/88 08/14/24 09:40 Room Air 08/14/24 09:24 73 08/14/24 07:47 72 18 08/14/24 07:36 71 18 08/14/24 07:36 93 Room Air 21 08/14/24 03:58 97.8 F 71 20 140/65 92 08/13/24 20:26 97.3 F L 73 20 135/56 L 93 08/13/24 19:21 72 16 08/13/24 19:21 92 Room Air 08/13/24 16:00 97.6 F 76 16 124/59 L 94 08/13/24 13:26 75 20 08/13/24 13:21 71 20 08/13/24 13:21 92 Room Air 21 Intake/Output Intake/Output: Intake & Output 08/11/24 08/12/24 08/13/24 08/14/24 23:59 23:59 23:59 23:59 Intake Total 690 720 988 Output Total 1400 1750 820 Balance -710 -1030 168 Meds/Results Medications: Active Medications Generic Name Dose Route Start Last Admin Trade Name Freq PRN Reason Stop Dose Admin Albuterol 2 puff 08/12/24 07:24 08/12/24 13:40 Albuterol Sulfate (*Sp) Aerosol 1 Puff INHALATION 2 puff Q6H PRN Administration Shortness Of Breath Albuterol/Ipratropium 3 ml 08/13/24 14:00 08/14/24 07:36 Ipratropium 0.5 Mg/Albuterol Sulfate 2.5 Mg Ampul.Neb 3 Ml INHALATION 3 ml Q6HRT NICOLLE Administration Alprazolam 0.25 mg 08/12/24 09:00 08/14/24 09:24 Alprazolam (*Crx) 0.25 Mg Tablet PO 0.25 mg BID NICOLLE Administration Amlodipine Besylate 10 mg 08/12/24 09:00 08/14/24 09:24 Amlodipine Besylate 10 Mg Tablet PO 10 mg QAM NICOLLE Administration Aspirin 81 mg 08/12/24 09:00 08/14/24 09:24 Aspirin 81 Mg Enteric Tablet PO 81 mg QAM NICOLLE Administration Bumetanide 1 mg 08/14/24 09:00 08/14/24 09:24 Bumetanide 1 Mg Tablet PO 1 mg BID NICOLLE Administration Finasteride 5 mg 08/12/24 09:00 08/14/24 09:24 Finasteride 5 Mg Tablet PO 5 mg QAM NICOLLE Administration Fluticasone/Umeclidinium/Vilanterol 1 puff 08/12/24 08:00 08/14/24 07:37 Fluticasone/Umeclidin/Vilanter 100-62.5-25 Mcg Ellipta INHALATION 1 puff DAILYRT NICOLLE Administration Gabapentin 300 mg 08/12/24 21:00 08/13/24 20:15 Gabapentin 300 Mg Capsule PO 300 mg HS NICOLLE Administration Guaifenesin/Dextromethorphan 10 ml 08/13/24 11:00 08/14/24 11:18 Guaifenesin/Dextromethorphan 10 Ml Udc PO 08/15/24 09:00 10 ml Q4H NICOLLE Administration Heparin Sodium (Porcine) 5,000 units 08/12/24 21:00 08/14/24 09:26 Heparin Sodium 5,000 Units/Ml Vial SUB-Q 5,000 units Q12HR NICOLLE Administration Hydroxychloroquine Sulfate 200 mg 08/12/24 09:00 08/14/24 09:25 Hydroxychloroquine Sulfate 200 Mg Tablet PO 200 mg BID NICOLLE Administration Metoprolol Succinate 100 mg 08/12/24 09:00 08/14/24 09:24 Metoprolol Succinate Ext Rel 100 Mg Tabcr PO 100 mg QAM NICOLLE Administration Senna/Docusate Sodium 2 tab 08/14/24 09:00 08/14/24 09:37 Senna/Docusate Sodium Tablet PO 2 tab BID NICOLLE Administration Sodium Bicarbonate 650 mg 08/12/24 09:00 08/14/24 09:24 Sodium Bicarbonate Tab 650 Mg Tablet PO 650 mg BID NICOLLE Administration Tamsulosin HCl 0.4 mg 08/12/24 09:00 08/14/24 09:26 Tamsulosin Hcl 0.4 Mg Capsule PO 0.4 mg QAM NICOLLE Administration Radiology Results: ITS Impressions Chest X-Ray 08/14/24 06:17 IMPRESSION: 1. Improved airspace opacities in the lower lung zones, consistent with atelectasis versus pneumonia. 2. Left ventricular enlargement of the heart. Labs Labs: Laboratory Tests 08/14/24 04:37 08/14/24 04:37 Calcium 8.6 Total Bilirubin 0.9 AST 27 ALT 21 Alkaline Phosphatase 54 Total Protein 6.0 L Albumin 3.5 Procalcitonin 0.4
--- NOTE | 2024-08-14 11:36 | PC.NURSE ---
On 08/14/24, the student, [Elle Lopez], provided care and completed [facility] documentation on this patient. I have reviewed the student's documentation and agree with the findings.
[2024-08-14] MEDS: GABAPENTIN 300 MG CAPSULE PO (19:59)
[2024-08-15] VITALS (15 sets, daily range): BP systolic 110–137; BP diastolic 50–60; PULSE 65–86; RESP 16–30; TEMP 36.4–37.2; O2SAT 83–97
[2024-08-15] MEDS: IPRATROPIUM 0.5 MG/ALBUTEROL SULFATE 2.5 MG AMPUL.NEB 3 ML INHALATION ×4 (02:13→20:05)
[2024-08-15 05:32] LABS: Basophils Percent Auto 0.3 % (0.2-1.2); Hematocrit 30.3 % (42.0-52.0); Immature Granulocyte Absolute 0.03 K/mm3 (0.00-0.031); Immature Granulocyte Percent A 0.4 % (0-0.5); Lymphocytes Absolute Auto 0.88 K/mm3 (0.9-3.2); Lymphocytes Percent Auto 12.5 % (18.3-44.2); Mean Corpuscular Hemoglobin 32.2 pg (26-34); Mean Corpuscular Volume 97.4 fl (80-100); Mean Platelet Volume 9.5 fl (7.4-10.4); Monocytes Absolute Auto 0.6 K/mm3 (0.1-0.6); Monocytes Percent Auto 8.6 % (2.6-8.5); Neutrophils Absolute Auto 5.5 K/mm3 (1.3-6.7); Neutrophils Percent Auto 78.2 % (45.5-73.1); Platelet Count Result 163 k/mm3 (150-375); Red Blood Count 3.11 M/mm3 (4.6-6.20); Red Cell Distribution Width 13.3 % (11.5-14.5); White Blood Count 7.1 K/mm3 (4.5-10.0)
[2024-08-15] MEDS: guaiFENesin/DEXTROMETHORPHAN 10 ML UDC PO (05:35)
[2024-08-15 05:43] LABS: Alanine Aminotransferase 22 U/L (6-50); Albumin Level 3.3 g/dL (3.5-5.1); Alkaline Phosphatase 59 U/L (38-126); Anion Gap 11 mmol/L (4-12); Aspartate Amino Transferase 24 U/L (17-59); Bilirubin,Total 0.7 mg/dL (0.2-1.3); Blood Urea Nitrogen 80 mg/dL (9-20); Calcium 8.6 mg/dL (8.4-10.2); Carbon Dioxide 22 mmol/L (22-30); Chloride 104 mmol/L (98-107); Estimated CRCL calculation 12 ml/min; Estimated Glomerular Filt Rate 14; Glucose 83 mg/dL (65-110); Potassium 3.5 mmol/L (3.4-5.0); Sodium 137 mmol/L (137-145)
[2024-08-15] MEDS: FLUTICASONE/UMECLIDIN/VILANTER 100-62.5-25 MCG ELLIPTA 1 PUFF INHALATION (07:16)
--- NOTE | 2024-08-15 09:21 | PM.IMPN ---
Progress Note: A&P Assessment and Plan (1) CHF exacerbation: Code(s): I50.9 - Heart failure, unspecified Status: Acute Assessment and Plan: Patient was recently admitted from 06/07-06/13/2024 for similar symptoms resulting in a new diagnosis of heart failure with reduced EF. Per chart review on 06/09 there was a discussion about dialysis, however patient declined resulting in no cardiac catheterization being performed. He remained on his beta-alli metoprolol succinate 100 mg p.o. q.a.m. at that time. Unable to start lasix, spironolactone or Jardiance due to his severely reduced GFR at time of discharge. Patient was placed on a low sodium and diet and fluid restriction on discharge. - Patient reporting decrease UOP, possible etiology of volume overload and HF exacerbation. - BNP: > 30,000 - EKG: Atrial pacing. 70 beats per minute. No signs of ischemia. - Chest XR 08/11: Cardiomegaly with cardiac decompensation and pulmonary edema. Pneumonitis is not excluded. Bilateral basilar atelectasis with minimal effusion. - Chest XR 08/13: Bibasilar atelectasis versus pneumonia with bilateral pleural effusion. Underlying pulmonary edema cannot be excluded. Changes are slightly increased compared to previous study. - Chest XR 08/14: Improved airspace opacities in the lower lung zones, consistent with atelectasis versus pneumonia. Left ventricular enlargement of the heart. - Echo 06/08/2024: LVEF 45-50% with mild pulmonary hypertension - Bumex 1 mg BID - Renal dialysis diet - Monitor vital signs, I&Os, BUN/creatinine, daily weights, neuro status and patient is a fall risk - Monitor serum electrolytes, Keep serum Potassium>4 and serum Magnesium>2 and CBC - nephrology is following as well to aid with fluid overload (2) Fluid overload: Code(s): E87.70 - Fluid overload, unspecified Status: Acute Assessment and Plan: see plan above #1 CHF exacerbation - transitioned to PO bumex (3) CKD (chronic kidney disease): Qualifiers: Chronic kidney disease stage: unspecified stage Qualified Code(s): N18.9 - Chronic kidney disease, unspecified Code(s): N18.9 - Chronic kidney disease, unspecified Status: Chronic Assessment and Plan: 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 Baseline creatinine is approximately 2.7 - 3.5 with GFR of 20 per chart review. However most recently running Cr 3.3-3.7. BUN/Cr 63/3.6 with GFR 16 on admission. - Monitor vital signs, I&Os, BUN/creatinine, daily weights, neuro status and patient is a fall risk - Monitor serum electrolytes, Keep serum Potassium>4 and serum Magnesium>2 and CBC - Avoid nephrotoxic medications - Renally dose medications - Nephrology consulted this may be a situation where we have to accept a higher creatinine in order to maintain relative stability in his volume status with ongoing diuretic therapy may come a point where diuretics alone are not able to keep him stable - hence, he is at risk for [employer]/dialysis in the future follow trend of repeat labs and UOP (4) Essential hypertension: Code(s): I10 - Essential (primary) hypertension Status: Chronic Assessment and Plan: Chronic, continue home medications. - amlodipine 10 mg daily - metoprolol 100 mg daily - monitor (5) Obstructive sleep apnea: Code(s): G47.33 - Obstructive sleep apnea (adult) (pediatric) Status: Chronic Assessment and Plan: Continue CPAP Plan Disposition: 83-year-old male with a past medical history bilateral carotid stenosis, CKD stage 3, COPD, chronic anemia, hypertension, lupus/SLE, ARTURO compliant with CPAP, overactive bladder, urinary retention, peripheral artery disease, rheumatoid arthritis, Sjogren syndrome presents to the hospital for worsening shortness of breath 2/2 CHF exacerbation. IV lasix transitioned to PO bumex. Nephrology consulted given patients CKD and severely reduced GFR. There may come a point where diuretics alone are not able to keep him stable - hence, he is at risk for [employer]PA[employer]/dialysis in the future Time Spent With Patient Time with patient: Greater than 35 minutes Subjective Date/time seen: 08/15/24 09:21 Interval history: 83-year-old male with a past medical history bilateral carotid stenosis, CKD stage 3, COPD, chronic anemia, hypertension, lupus/SLE, ARTURO compliant with CPAP, overactive bladder, urinary retention, peripheral artery disease, rheumatoid arthritis, and Sjogren syndrome presents to the hospital for increased shortness of breath. Patient is pleasant sitting up in his chair with at bedside. States that he is feeling better today. Continues to have a slight cough. He was transitioned to PO bumex today. Evaluated by nephrology who state that we may need to accept elevated Cr levels to have a stable volume status and that patient is at risk of dialysis need. Patient denies chest pain, shortness of breath, nausea/vomiting and abdominal pain. Review of Systems Review of Systems: All systems reviewed & are unremarkable except as noted in HPI and below Constitutional: Constitutional: Reports no additional constitutional complaints Eyes: Eyes: Reports no additional eye complaints ENT: Reports as per HPI Cardiovascular: Cardiovascular: Reports no additional cardiovascular complaints, Reports dyspnea and Reports dyspnea on exertion Respiratory: Respiratory: Reports cough, Reports dyspnea, Reports dyspnea on exertion and Reports wheezing Gastrointestinal: Gastrointestinal: Reports no additional gastrointestinal complaints Genitourinary: Genitourinary: Reports as per HPI Musculoskeletal: Musculoskeletal: Reports no additional musculoskeletal complaints Integumentary/Breasts: Skin/Breast: Reports as per HPI Neurologic: Reports as per HPI Psychiatric: Psychiatric: Reports as per HPI Allergic/Immunologic: Allergic/Immunologic: Reports wheezing Exam Narrative: AF HR 73 RR 18 SpO2 93 BP 140/88 General: Male in no acute respiratory distress who is nontoxic appearing, lying semi recumbent in bed. HEENT: Normocephalic. Atraumatic.No facial asymmetry. Chest: Lungs are clear but diminished to auscultation bilaterally. CV: Heart was regular rate and rhythm. S1/S2. No murmurs, gallops, or rubs. Abd: Abdomen was soft. Nontender. Nondistended. Positive bowel sounds. No organomegaly or masses. Ext: No clubbing, cyanosis. Improving edema to the BLE. 2+ DP pulses bilaterally. Neuro: Patient is alert and oriented x4. Cranial nerves 2-12 are intact. Speech is clear. Objective Data Vital Signs Vital Signs: Vital Signs - 24 hr 08/14/24 09:24 08/14/24 09:40 08/14/24 09:45 Temperature Pulse Rate 73 73 Respiratory Rate Blood Pressure 140/88 Pulse Oximetry Oxygen Delivery Room Air 08/14/24 10:33 08/14/24 13:29 08/14/24 13:36 Temperature Pulse Rate 74 73 Respiratory Rate 18 18 Blood Pressure Pulse Oximetry Oxygen Delivery Room Air 08/14/24 14:32 08/14/24 19:38 08/14/24 19:39 Temperature Pulse Rate 70 Respiratory Rate 18 Blood Pressure Pulse Oximetry 91 Oxygen Delivery Room Air Room Air 08/14/24 20:28 08/15/24 02:14 08/14/24 19:48 Temperature 98.1 F Pulse Rate 70 65 72 Respiratory Rate 18 18 18 Blood Pressure 133/55 L Pulse Oximetry 91 Oxygen Delivery 08/15/24 04:16 08/15/24 02:24 08/15/24 07:16 Temperature 98.9 F Pulse Rate 70 66 Respiratory Rate 18 18 Blood Pressure 137/60 Pulse Oximetry 96 91 Oxygen Delivery Room Air 08/15/24 07:16 08/15/24 07:24 08/15/24 07:59 Temperature 97.6 F Pulse Rate 70 70 71 Respiratory Rate 18 18 16 Blood Pressure 128/56 L Pulse Oximetry 93 Oxygen Delivery Intake/Output Intake/Output: Intake & Output 08/12/24 08/13/24 08/14/24 08/15/24 23:59 23:59 23:59 23:59 Intake Total 230 290 7826 200 Output Total 1400 1750 1420 200 Balance -710 -1030 238 0 Meds/Results Medications: Active Medications Generic Name Dose Route Start Last Admin Trade Name Freq PRN Reason Stop Dose Admin Albuterol 2 puff 08/12/24 07:24 08/12/24 13:40 Albuterol Sulfate (*Sp) Aerosol 1 Puff INHALATION 2 puff Q6H PRN Administration Shortness Of Breath Albuterol/Ipratropium 3 ml 08/13/24 14:00 08/15/24 07:16 Ipratropium 0.5 Mg/Albuterol Sulfate 2.5 Mg Ampul.Neb 3 Ml INHALATION 3 ml Q6HRT NICOLLE Administration Alprazolam 0.25 mg 08/12/24 09:00 08/14/24 17:01 Alprazolam (*Crx) 0.25 Mg Tablet PO 0.25 mg BID NICOLLE Administration Amlodipine Besylate 10 mg 08/12/24 09:00 08/14/24 09:24 Amlodipine Besylate 10 Mg Tablet PO 10 mg QAM NICOLLE Administration Aspirin 81 mg 08/12/24 09:00 08/14/24 09:24 Aspirin 81 Mg Enteric Tablet PO 81 mg QAM NICOLLE Administration Bumetanide 1 mg 08/14/24 09:00 08/14/24 17:01 Bumetanide 1 Mg Tablet PO 1 mg BID NICOLLE Administration Finasteride 5 mg 08/12/24 09:00 08/14/24 09:24 Finasteride 5 Mg Tablet PO 5 mg QAM NICOLLE Administration Fluticasone/Umeclidinium/Vilanterol 1 puff 08/12/24 08:00 08/15/24 07:16 Fluticasone/Umeclidin/Vilanter 100-62.5-25 Mcg Ellipta INHALATION 1 puff DAILYRT NICOLLE Administration Gabapentin 300 mg 08/12/24 21:00 08/14/24 19:59 Gabapentin 300 Mg Capsule PO 300 mg HS NICOLLE Administration Heparin Sodium (Porcine) 5,000 units 08/12/24 21:00 08/14/24 19:59 Heparin Sodium 5,000 Units/Ml Vial SUB-Q 5,000 units Q12HR NICOLLE Administration Hydroxychloroquine Sulfate 200 mg 08/12/24 09:00 08/14/24 17:01 Hydroxychloroquine Sulfate 200 Mg Tablet PO 200 mg BID NICOLLE Administration Metoprolol Succinate 100 mg 08/12/24 09:00 08/14/24 09:24 Metoprolol Succinate Ext Rel 100 Mg Tabcr PO 100 mg QAM NICOLLE Administration Senna/Docusate Sodium 2 tab 08/14/24 09:00 08/14/24 17:01 Senna/Docusate Sodium Tablet PO 2 tab BID NICOLLE Administration Sodium Bicarbonate 650 mg 08/12/24 09:00 08/14/24 17:01 Sodium Bicarbonate Tab 650 Mg Tablet PO 650 mg BID NICOLLE Administration Tamsulosin HCl 0.4 mg 08/12/24 09:00 08/14/24 09:26 Tamsulosin Hcl 0.4 Mg Capsule PO 0.4 mg QAM NICOLLE Administration Radiology Results: ITS Impressions Chest X-Ray 08/14/24 06:17 IMPRESSION: 1. Improved airspace opacities in the lower lung zones, consistent with atelectasis versus pneumonia. 2. Left ventricular enlargement of the heart. Labs Labs: Laboratory Results - last 24 hr 08/14/24 08/15/24 04:37 05:24 WBC 7.1 RBC 3.11 L Hgb 10.0 L Hct 30.3 L MCV 97.4 D MCH 32.2 MCHC 33.0 RDW 13.3 Plt Count 163 MPV 9.5 Immature Gran % (Auto) 0.4 Neut % (Auto) 78.2 H Lymph % (Auto) 12.5 L [place] % (Auto) 8.6 H Eos % (Auto) 0.0 Baso % (Auto) 0.3 Lymph # (Auto) 0.88 L [place] # (Auto) 0.6 Eos # (Auto) 0.0 Baso # (Auto) 0.0 Abs Immat Gran (auto) 0.03 Absolute Neuts (auto) 5.5 Absolute Nucleated RBC 0.000 Nucleated RBC % 0.0 Sodium 137 Potassium 3.5 Chloride 104 Carbon Dioxide 22 Anion Gap 11 BUN 80 H Creatinine 4.10 H Estim Creat Clear Calc 12 Estimated GFR 14 L Glucose 83 Calcium 8.6 Total Bilirubin 0.7 AST 24 ALT 22 Alkaline Phosphatase 59 Total Protein 6.0 L Albumin 3.3 L Procalcitonin 0.4 Quality VTE Prophylaxis VTE prophylaxis: pharmacologic ordered
[2024-08-15] MEDS: HEPARIN SODIUM 5,000 UNITS/ML VIAL 5000 UNITS SUB-Q ×2 (09:46→19:49)
[2024-08-15] MEDS: METOPROLOL SUCCINATE EXT REL 100 MG TABCR PO (09:47)
[2024-08-15] MEDS: ALPRAZolam (*CRX) 0.25 MG TABLET PO ×2 (09:48→17:01)
[2024-08-15] MEDS: SENNA/DOCUSATE SODIUM TABLET 2 TAB PO ×2 (09:48→17:01)
[2024-08-15] MEDS: ASPIRIN 81 MG ENTERIC TABLET PO (09:48)
[2024-08-15] MEDS: FINASTERIDE 5 MG TABLET PO (09:48)
[2024-08-15] MEDS: TAMSULOSIN HCL 0.4 MG CAPSULE PO (09:48)
[2024-08-15] MEDS: HYDROXYCHLOROQUINE SULFATE 200 MG TABLET PO ×2 (09:48→17:01)
[2024-08-15] MEDS: SODIUM BICARBONATE TAB 650 MG TABLET PO ×2 (09:48→17:01)
[2024-08-15] MEDS: amLODIPine BESYLATE 10 MG TABLET PO (09:48)
--- NOTE | 2024-08-15 12:57 | PM.DS ---
DS: Admitting Diagnosis Discharge Date 08/15 Admitting Diagnosis sob DS: Discharge Diagnosis Discharge Diagnosis (1) CHF exacerbation: Code(s): I50.9 - Heart failure, unspecified Status: Acute Assessment and Plan: Patient was recently admitted from 06/07-06/13/2024 for similar symptoms resulting in a new diagnosis of heart failure with reduced EF. Per chart review on 06/09 there was a discussion about dialysis, however patient declined resulting in no cardiac catheterization being performed. He remained on his beta-alli metoprolol succinate 100 mg p.o. q.a.m. at that time. Unable to start lasix, spironolactone or Jardiance due to his severely reduced GFR at time of discharge. Patient was placed on a low sodium and diet and fluid restriction on discharge. - Patient reporting decrease UOP, possible etiology of volume overload and HF exacerbation. - BNP: > 30,000 - EKG: Atrial pacing. 70 beats per minute. No signs of ischemia. - Chest XR 08/11: Cardiomegaly with cardiac decompensation and pulmonary edema. Pneumonitis is not excluded. Bilateral basilar atelectasis with minimal effusion. - Chest XR 08/13: Bibasilar atelectasis versus pneumonia with bilateral pleural effusion. Underlying pulmonary edema cannot be excluded. Changes are slightly increased compared to previous study. - Chest XR 08/14: Improved airspace opacities in the lower lung zones, consistent with atelectasis versus pneumonia. Left ventricular enlargement of the heart. - Echo 06/08/2024: LVEF 45-50% with mild pulmonary hypertension - Bumex 1 mg BID - Renal dialysis diet - Monitor vital signs, I&Os, BUN/creatinine, daily weights, neuro status and patient is a fall risk - Monitor serum electrolytes, Keep serum Potassium>4 and serum Magnesium>2 and CBC - nephrology is following as well to aid with fluid overload (2) Fluid overload: Code(s): E87.70 - Fluid overload, unspecified Status: Acute Assessment and Plan: see plan above #1 CHF exacerbation - transitioned to PO bumex (3) CKD (chronic kidney disease): Qualifiers: Chronic kidney disease stage: unspecified stage Qualified Code(s): N18.9 - Chronic kidney disease, unspecified Code(s): N18.9 - Chronic kidney disease, unspecified Status: Chronic Assessment and Plan: 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 Baseline creatinine is approximately 2.7 - 3.5 with GFR of 20 per chart review. However most recently running Cr 3.3-3.7. BUN/Cr 63/3.6 with GFR 16 on admission. - Monitor vital signs, I&Os, BUN/creatinine, daily weights, neuro status and patient is a fall risk - Monitor serum electrolytes, Keep serum Potassium>4 and serum Magnesium>2 and CBC - Avoid nephrotoxic medications - Renally dose medications - Nephrology consulted this may be a situation where we have to accept a higher creatinine in order to maintain relative stability in his volume status with ongoing diuretic therapy may come a point where diuretics alone are not able to keep him stable - hence, he is at risk for MINERAL WOOL INSULATION SUPERVISOR/dialysis in the future follow trend of repeat labs and UOP (4) Essential hypertension: Code(s): I10 - Essential (primary) hypertension Status: Chronic Assessment and Plan: Chronic, continue home medications. - amlodipine 10 mg daily - metoprolol 100 mg daily - monitor (5) Obstructive sleep apnea: Code(s): G47.33 - Obstructive sleep apnea (adult) (pediatric) Status: Chronic Assessment and Plan: Continue CPAP Plan Disposition: 83-year-old male with a past medical history bilateral carotid stenosis, CKD stage 3, COPD, chronic anemia, hypertension, lupus/SLE, ARTURO compliant with CPAP, overactive bladder, urinary retention, peripheral artery disease, rheumatoid arthritis, Sjogren syndrome presents to the hospital for worsening shortness of breath 2/2 CHF exacerbation. IV lasix transitioned to PO bumex. Nephrology consulted given patients CKD and severely reduced GFR. There may come a point where diuretics alone are not able to keep him stable - hence, he is at risk for MINERAL WOOL INSULATION SUPERVISOR/dialysis in the future DS: Summary Hospital Course Hospital Course: 83-year-old male with a past medical history bilateral carotid stenosis, CKD stage 3, COPD, chronic anemia, hypertension, lupus/SLE, ARTURO compliant with CPAP, overactive bladder, urinary retention, peripheral artery disease, rheumatoid arthritis, Sjogren syndrome presents to the hospital for worsening shortness of breath 2/2 CHF exacerbation. IV lasix transitioned to PO bumex. Nephrology consulted: # CKD baseline creatinine had been fluctuating ~ 2.7 - 3.5mg/dl in the last year or so however, more recently with acute hospitalizations, seems to running closer to 3.3 - 3.7mg/dl this may be a situation where we have to accept a higher creatinine in order to maintain relative stability in his volume status with ongoing diuretic therapy there may come a point where diuretics alone are not able to keep him stable - hence, he is at risk for MINERAL WOOL INSULATION SUPERVISOR/dialysis in the future # Heart failure, unspecified clinically better last Echo noted: EF ~ 45-50% moderate to severe mitral valve regurgitation mild to moderate tricuspid valve regurgitation mild pulmonary hypertension, estimated pulmonary arterial systolic pressure is 42 mmHg volume status better transitioned to oral diuretic therapy follow I/Os, daily weights, and respiratory status continue fluid restriction as well as low salt diet Status at Discharge Functional status at discharge: independent ambulation Overall status at discharge: patient is progressing back to baseline Time Spent with Patient Time attestation: Total time spent providing and/or coordinating discharge services: Time spent: Greater than 30 minutes Exam Narrative: AF HR 73 RR 18 SpO2 93 BP 140/88 General: Male in no acute respiratory distress who is nontoxic appearing, lying semi recumbent in bed. HEENT: Normocephalic. Atraumatic.No facial asymmetry. Chest: Lungs are clear but diminished to auscultation bilaterally. CV: Heart was regular rate and rhythm. S1/S2. No murmurs, gallops, or rubs. Abd: Abdomen was soft. Nontender. Nondistended. Positive bowel sounds. No organomegaly or masses. Ext: No clubbing, cyanosis. Improving edema to the BLE. 2+ DP pulses bilaterally. Neuro: Patient is alert and oriented x4. Cranial nerves 2-12 are intact. Speech is clear. DS: Data Data Completed and Pending Labs on day of discharge: Labs from last 24 hours 08/15/24 05:24 WBC 7.1 RBC 3.11 L Hgb 10.0 L Hct 30.3 L MCV 97.4 D MCH 32.2 MCHC 33.0 RDW 13.3 Plt Count 163 MPV 9.5 Immature Gran % (Auto) 0.4 Neut % (Auto) 78.2 H Lymph % (Auto) 12.5 L Darke % (Auto) 8.6 H Eos % (Auto) 0.0 Baso % (Auto) 0.3 Lymph # (Auto) 0.88 L Darke # (Auto) 0.6 Eos # (Auto) 0.0 Baso # (Auto) 0.0 Abs Immat Gran (auto) 0.03 Absolute Neuts (auto) 5.5 Absolute Nucleated RBC 0.000 Nucleated RBC % 0.0 Sodium 137 Potassium 3.5 Chloride 104 Carbon Dioxide 22 Anion Gap 11 BUN 80 H Creatinine 4.10 H Estim Creat Clear Calc 12 Estimated GFR 14 L Glucose 83 Calcium 8.6 Total Bilirubin 0.7 AST 24 ALT 22 Alkaline Phosphatase 59 Total Protein 6.0 L Albumin 3.3 L Discharge Plan Discharge Consulting providers: Pedro Rahman Discharging Clinician: Aydee Fragoso Patient Disposition: Home, Self-Care Activity: february shower Diet: renal Discharge Instructions: continue therapy as started with bumex here. Take mucinex as needed for congestion, continue to do your incentive spiromentry. Your creatinine was elevated- so you will need to have a close follow up with your semaphore operator for repeat blood work. Patient Instructions: Antibiotic Form, Heart Failure (DC), How to Stop Smoking (DC), Blood Thinners (DC) Stand Alone Forms: General Discharge Information Follow-up/Referrals: Quintin Downey MD [Physician] - 1 Week (repeat kidney function) Vel Gilliam MD [Primary Care Provider] - 2 Weeks Discharge Medications: No Action amlodipine 10 mg tablet 10 mg PO QAM gabapentin 100 mg capsule 300 mg PO HS simvastatin 10 mg tablet 10 mg PO DAILY Rx Instructions: TAKE 1 TABLET BY MOUTH EVERY DAY tamsulosin 0.4 mg Capsule 0.4 mg PO QAM Qty: 30 1RF albuterol sulfate 90 mcg/actuation HFA aerosol inhaler 2 puff INHALATION Q6H PRN (Reason: Shortness Of Breath) sennosides-docusate sodium [Senokot-S] 8.6-50 mg tablet 2 tab-cap PO BID hydroxychloroquine 200 mg tablet 200 mg PO BID Trelegy Ellipta 100-62.5-25 mcg blister with device 1 inh INHALATION .QD montelukast 10 mg tablet 10 mg PO HS polyethylene glycol 3350 [Miralax] 17 gram Powder In Packet 17 g PO QAM PRN (Reason: constipation) Qty: 30 0RF aspirin 81 mg Tablet,Delayed Release (Dr/Ec) 81 mg PO QAM Qty: 30 0RF sodium bicarbonate 650 mg tablet 650 mg PO BID Qty: 180 3RF metoprolol succinate 100 mg tablet extended release 24 hr 100 mg PO QAM alprazolam 0.25 mg tablet 0.25 mg PO BID Qty: 60 0RF finasteride [Proscar] 5 mg tablet 5 mg PO QAM Qty: 30 0RF Date of admission: 08/13/24 09:52 Primary Care Provider: Vel Gilliam Admitting Provider: Christine Rodriguez V. Attending physician on admission: Frances Bertrand Condition: Stable Quality VTE Prophylaxis VTE prophylaxis: pharmacologic ordered Hospitalist MIPS Heart Failure (Exclusion) Patient has history of Heart Transplant or Left Ventricular Assistive Device?: No IF YES, STOP HERE Heart Failure (Qualifier) Patient has current or prior documentation of LVEF less than or equal to 40%, or mod/servere depressed LVSF?: No IF NO, STOP HERE
--- NOTE | 2024-08-15 13:35 | PM.PNNEP ---
Subjective Date/time seen: 08/15/24 13:35 Objective Data Vital Signs Vital Signs: Vital Signs Temp Pulse Resp BP Pulse Ox O2 Del Method 08/15/24 13:35 90 Room Air 08/15/24 12:13 97.6 F 75 16 110/50 L 88 L 08/15/24 10:00 Room Air 08/15/24 09:47 86 08/15/24 07:59 97.6 F 71 16 128/56 L 93 08/15/24 07:24 70 18 08/15/24 07:16 70 18 08/15/24 07:16 91 Room Air 08/15/24 02:24 66 18 08/15/24 04:16 98.9 F 70 18 137/60 96 08/14/24 19:48 72 18 08/15/24 02:14 65 18 08/14/24 20:28 98.1 F 70 18 133/55 L 91 08/14/24 19:39 91 Room Air 08/14/24 19:38 70 18 Intake/Output Intake/Output: Intake & Output 08/12/24 08/13/24 08/14/24 08/15/24 23:59 23:59 23:59 23:59 Intake Total 002 613 5601 558 Output Total 1400 1750 1420 500 Balance -710 1030 238 58 Meds/Results Medications: Active Medications Generic Name Dose Route Start Last Admin Trade Name Freq PRN Reason Stop Dose Admin Albuterol 2 puff 08/12/24 07:24 08/12/24 13:40 Albuterol Sulfate (*Sp) Aerosol 1 Puff INHALATION 2 puff Q6H PRN Administration Shortness Of Breath Albuterol/Ipratropium 3 ml 08/13/24 14:00 08/15/24 13:40 Ipratropium 0.5 Mg/Albuterol Sulfate 2.5 Mg Ampul.Neb 3 Ml INHALATION 3 ml Q6HRT NICOLLE Administration Alprazolam 0.25 mg 08/12/24 09:00 08/15/24 09:48 Alprazolam (*Crx) 0.25 Mg Tablet PO 0.25 mg BID NICOLLE Administration Amlodipine Besylate 10 mg 08/12/24 09:00 08/15/24 09:48 Amlodipine Besylate 10 Mg Tablet PO 10 mg QAM NICOLLE Administration Aspirin 81 mg 08/12/24 09:00 08/15/24 09:48 Aspirin 81 Mg Enteric Tablet PO 81 mg QAM NICOLLE Administration Bumetanide 1 mg 08/14/24 09:00 08/14/24 17:01 Bumetanide 1 Mg Tablet PO 1 mg BID NICOLLE Administration Finasteride 5 mg 08/12/24 09:00 08/15/24 09:48 Finasteride 5 Mg Tablet PO 5 mg QAM NICOLLE Administration Fluticasone/Umeclidinium/Vilanterol 1 puff 08/12/24 08:00 08/15/24 07:16 Fluticasone/Umeclidin/Vilanter 100-62.5-25 Mcg Ellipta INHALATION 1 puff DAILYRT NICOLLE Administration Gabapentin 300 mg 08/12/24 21:00 08/14/24 19:59 Gabapentin 300 Mg Capsule PO 300 mg HS NICOLLE Administration Guaifenesin 1,200 mg 08/15/24 14:00 08/15/24 14:06 Guaifenesin 12 Hr 600 Mg Tabcr PO 1,200 mg Q12HR NICOLLE Administration Heparin Sodium (Porcine) 5,000 units 08/12/24 21:00 08/15/24 09:46 Heparin Sodium 5,000 Units/Ml Vial SUB-Q 5,000 units Q12HR NICOLLE Administration Hydroxychloroquine Sulfate 200 mg 08/12/24 09:00 08/15/24 09:48 Hydroxychloroquine Sulfate 200 Mg Tablet PO 200 mg BID NICOLLE Administration Metoprolol Succinate 100 mg 08/12/24 09:00 08/15/24 09:47 Metoprolol Succinate Ext Rel 100 Mg Tabcr PO 100 mg QAM NICOLLE Administration Senna/Docusate Sodium 2 tab 08/14/24 09:00 08/15/24 09:48 Senna/Docusate Sodium Tablet PO 2 tab BID NICOLLE Administration Sodium Bicarbonate 650 mg 08/12/24 09:00 08/15/24 09:48 Sodium Bicarbonate Tab 650 Mg Tablet PO 650 mg BID NICOLLE Administration Tamsulosin HCl 0.4 mg 08/12/24 09:00 08/15/24 09:48 Tamsulosin Hcl 0.4 Mg Capsule PO 0.4 mg QAM NICOLLE Administration Radiology Results: ITS Impressions Chest X-Ray 08/14/24 06:17 IMPRESSION: 1. Improved airspace opacities in the lower lung zones, consistent with atelectasis versus pneumonia. 2. Left ventricular enlargement of the heart. Labs Labs: Laboratory Tests 08/15/24 05:24 08/15/24 05:24 Calcium 8.6 Total Bilirubin 0.7 AST 24 ALT 22 Alkaline Phosphatase 59 Total Protein 6.0 L Albumin 3.3 L
[2024-08-15] MEDS: guaiFENesin 12 HR 600 MG TABCR 1200 MG PO ×2 (14:06→19:50)
[2024-08-15] MEDS: GABAPENTIN 300 MG CAPSULE PO (19:50)
[2024-08-16] VITALS (8 sets, daily range): BP systolic 121–150; BP diastolic 45–60; PULSE 67–78; RESP 18; TEMP 36.2–36.7; O2SAT 93–96
[2024-08-16] MEDS: IPRATROPIUM 0.5 MG/ALBUTEROL SULFATE 2.5 MG AMPUL.NEB 3 ML INHALATION ×2 (02:43→07:02)
[2024-08-16 05:54] LABS: Alanine Aminotransferase 20 U/L (6-50); Albumin Level 3.3 g/dL (3.5-5.1); Alkaline Phosphatase 61 U/L (38-126); Anion Gap 8 mmol/L (4-12); Aspartate Amino Transferase 27 U/L (17-59); Bilirubin,Total 0.9 mg/dL (0.2-1.3); Blood Urea Nitrogen 76 mg/dL (9-20); Calcium 8.5 mg/dL (8.4-10.2); Carbon Dioxide 24 mmol/L (22-30); Chloride 104 mmol/L (98-107); Estimated CRCL calculation 12 ml/min; Estimated Glomerular Filt Rate 14; Glucose 84 mg/dL (65-110); Potassium 3.9 mmol/L (3.4-5.0); Sodium 136 mmol/L (137-145)
[2024-08-16 05:56] LABS: Basophils Percent Auto 0.3 % (0.2-1.2); Hemoglobin 9.9 g/dL (14.0-18.0); Immature Granulocyte Absolute 0.07 K/mm3 (0.00-0.031); Lymphocytes Absolute Auto 0.81 K/mm3 (0.9-3.2); Lymphocytes Percent Auto 11.6 % (18.3-44.2); Mean Corpuscular HGB Conc 31.9 g/dl (32-36); Mean Corpuscular Hemoglobin 31.7 pg (26-34); Mean Corpuscular Volume 99.4 fl (80-100); Monocytes Absolute Auto 0.6 K/mm3 (0.1-0.6); Monocytes Percent Auto 8.5 % (2.6-8.5); Neutrophils Absolute Auto 5.5 K/mm3 (1.3-6.7); Neutrophils Percent Auto 78.6 % (45.5-73.1); Platelet Count Result 177 k/mm3 (150-375); Red Blood Count 3.12 M/mm3 (4.6-6.20); Red Cell Distribution Width 13.2 % (11.5-14.5)
[2024-08-16] MEDS: FLUTICASONE/UMECLIDIN/VILANTER 100-62.5-25 MCG ELLIPTA 1 PUFF INHALATION (07:03)
--- NOTE | 2024-08-16 08:05 | P.PNIM_ITS ---
Progress Note: A&P Assessment and Plan (1) CHF exacerbation: Code(s): I50.9 - Heart failure, unspecified Status: Acute Assessment and Plan: Patient was recently admitted from 06/07-06/13/2024 for similar symptoms resulting in a new diagnosis of heart failure with reduced EF. Per chart review on 06/09 there was a discussion about dialysis, however patient declined resulting in no cardiac catheterization being performed. He remained on his beta-alli metoprolol succinate 100 mg p.o. q.a.m. at that time. Unable to start lasix, spironolactone or Jardiance due to his severely reduced GFR at time of discharge. Patient was placed on a low sodium and diet and fluid restriction on discharge. - Patient reporting decrease UOP, possible etiology of volume overload and HF exacerbation. - BNP: > 30,000 - EKG: Atrial pacing. 70 beats per minute. No signs of ischemia. - Chest XR 08/11: Cardiomegaly with cardiac decompensation and pulmonary edema. Pneumonitis is not excluded. Bilateral basilar atelectasis with minimal effusion. - Chest XR 08/13: Bibasilar atelectasis versus pneumonia with bilateral pleural effusion. Underlying pulmonary edema cannot be excluded. Changes are slightly increased compared to previous study. - Chest XR 08/14: Improved airspace opacities in the lower lung zones, consistent with atelectasis versus pneumonia. Left ventricular enlargement of the heart. - Echo 06/08/2024: LVEF 45-50% with mild pulmonary hypertension - Bumex 1 mg BID - Renal dialysis diet - Monitor vital signs, I&Os, BUN/creatinine, daily weights, neuro status and patient is a fall risk - Monitor serum electrolytes, Keep serum Potassium>4 and serum Magnesium>2 and CBC - nephrology is following as well to aid with fluid overload (2) Fluid overload: Code(s): E87.70 - Fluid overload, unspecified Status: Acute Assessment and Plan: see plan above #1 CHF exacerbation - transitioned to PO bumex (3) CKD (chronic kidney disease): Qualifiers: Chronic kidney disease stage: unspecified stage Qualified Code(s): N18.9 - Chronic kidney disease, unspecified Code(s): N18.9 - Chronic kidney disease, unspecified Status: Chronic Assessment and Plan: 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 Baseline creatinine is approximately 2.7 - 3.5 with GFR of 20 per chart review. However most recently running Cr 3.3-3.7. BUN/Cr 63/3.6 with GFR 16 on admission. - Monitor vital signs, I&Os, BUN/creatinine, daily weights, neuro status and patient is a fall risk - Monitor serum electrolytes, Keep serum Potassium>4 and serum Magnesium>2 and CBC - Avoid nephrotoxic medications - Renally dose medications - Nephrology consulted * this may be a situation where we have to accept a higher creatinine in order to maintain relative stability in his volume status with ongoing diuretic therapy * may come a point where diuretics alone are not able to keep him stable - hence, he is at risk for DIESEL ENGINE MECHANIC/dialysis in the future * follow trend of repeat labs and UOP (4) Essential hypertension: Code(s): I10 - Essential (primary) hypertension Status: Chronic Assessment and Plan: Chronic, continue home medications. - amlodipine 10 mg daily - metoprolol 100 mg daily - monitor (5) Obstructive sleep apnea: Code(s): G47.33 - Obstructive sleep apnea (adult) (pediatric) Status: Chronic Assessment and Plan: Continue CPAP Plan Disposition: 83-year-old male with a past medical history bilateral carotid stenosis, CKD stage 3, COPD, chronic anemia, hypertension, lupus/SLE, ARTURO compliant with CPAP, overactive bladder, urinary retention, peripheral artery disease, rheumatoid arthritis, Sjogren syndrome presents to the hospital for worsening shortness of breath 2/2 CHF exacerbation. IV lasix transitioned to PO bumex. Nephrology consulted given patients CKD and severely reduced GFR. There may come a point where diuretics alone are not able to keep him stable - hence, he is at risk for DIESEL ENGINE MECHANIC/dialysis in the future Subjective Date/time seen: 08/16/24 08:05 Objective Data Vital Signs Vital Signs: Vital Signs - 24 hr 08/15/24 09:47 08/15/24 10:00 08/15/24 12:13 Temperature 97.6 F Pulse Rate 86 75 Respiratory Rate 16 Blood Pressure 110/50 L Pulse Oximetry 88 L Oxygen Delivery Room Air 08/15/24 13:35 08/15/24 13:37 08/15/24 13:40 Temperature Pulse Rate 77 Respiratory Rate 18 Blood Pressure Pulse Oximetry 90 83 L Oxygen Delivery Room Air Room Air 08/15/24 13:48 08/15/24 20:05 08/15/24 20:05 Temperature Pulse Rate 70 70 Respiratory Rate 18 18 Blood Pressure Pulse Oximetry 97 Oxygen Delivery Room Air 08/15/24 20:16 08/15/24 22:30 08/16/24 00:00 Temperature 98.1 F Pulse Rate 71 71 Respiratory Rate 18 30 H 18 Blood Pressure 150/60 H Pulse Oximetry 94 Oxygen Delivery Autopap 08/16/24 02:43 08/16/24 02:50 08/16/24 06:05 Temperature 97.9 F Pulse Rate 75 78 70 Respiratory Rate 18 18 18 Blood Pressure 137/57 L Pulse Oximetry 93 Oxygen Delivery 08/16/24 07:06 08/16/24 07:06 08/16/24 07:15 Temperature Pulse Rate 77 73 Respiratory Rate 18 18 Blood Pressure Pulse Oximetry 96 Oxygen Delivery Room Air Intake/Output Intake/Output: Intake & Output 08/13/24 08/14/24 08/15/24 08/16/24 23:59 23:59 23:59 23:59 Intake Total 720 1658 1088 Output Total 1750 1420 500 Balance -1030 238 588 Meds/Results Medications: Active Medications Generic Name Dose Route Start Last Admin Trade Name Freq PRN Reason Stop Dose Admin Albuterol 2 puff 08/12/24 07:24 08/12/24 13:40 Albuterol Sulfate (*Sp) Aerosol 1 Puff INHALATION 2 puff Q6H PRN Administration Shortness Of Breath Albuterol/Ipratropium 3 ml 08/13/24 14:00 08/16/24 07:02 Ipratropium 0.5 Mg/Albuterol Sulfate 2.5 Mg Ampul.Neb 3 Ml INHALATION 3 ml Q6HRT NICOLLE Administration Alprazolam 0.25 mg 08/12/24 09:00 08/15/24 17:01 Alprazolam (*Crx) 0.25 Mg Tablet PO 0.25 mg BID NICOLLE Administration Amlodipine Besylate 10 mg 08/12/24 09:00 08/15/24 09:48 Amlodipine Besylate 10 Mg Tablet PO 10 mg QAM NICOLLE Administration Aspirin 81 mg 08/12/24 09:00 08/15/24 09:48 Aspirin 81 Mg Enteric Tablet PO 81 mg QAM NICOLLE Administration Bumetanide 1 mg 08/16/24 09:00 Bumetanide 1 Mg Tablet PO QAM NICOLLE Finasteride 5 mg 08/12/24 09:00 08/15/24 09:48 Finasteride 5 Mg Tablet PO 5 mg QAM NICOLLE Administration Fluticasone/Umeclidinium/Vilanterol 1 puff 08/12/24 08:00 08/16/24 07:03 Fluticasone/Umeclidin/Vilanter 100-62.5-25 Mcg Ellipta INHALATION 1 puff DAILYRT NICOLLE Administration Gabapentin 300 mg 08/12/24 21:00 08/15/24 19:50 Gabapentin 300 Mg Capsule PO 300 mg HS NICOLLE Administration Guaifenesin 1,200 mg 08/15/24 14:00 08/15/24 19:50 Guaifenesin 12 Hr 600 Mg Tabcr PO 1,200 mg Q12HR NICOLLE Administration Heparin Sodium (Porcine) 5,000 units 08/12/24 21:00 08/15/24 19:49 Heparin Sodium 5,000 Units/Ml Vial SUB-Q 5,000 units Q12HR NICOLLE Administration Hydroxychloroquine Sulfate 200 mg 08/12/24 09:00 08/15/24 17:01 Hydroxychloroquine Sulfate 200 Mg Tablet PO 200 mg BID NICOLLE Administration Metoprolol Succinate 100 mg 08/12/24 09:00 08/15/24 09:47 Metoprolol Succinate Ext Rel 100 Mg Tabcr PO 100 mg QAM NICOLLE Administration Senna/Docusate Sodium 2 tab 08/14/24 09:00 08/15/24 17:01 Senna/Docusate Sodium Tablet PO 2 tab BID NICOLLE Administration Sodium Bicarbonate 650 mg 08/12/24 09:00 08/15/24 17:01 Sodium Bicarbonate Tab 650 Mg Tablet PO 650 mg BID NICOLLE Administration Tamsulosin HCl 0.4 mg 08/12/24 09:00 08/15/24 09:48 Tamsulosin Hcl 0.4 Mg Capsule PO 0.4 mg QAM NICOLLE Administration Radiology Results: ITS Impressions Chest X-Ray 08/14/24 06:17 IMPRESSION: 1. Improved airspace opacities in the lower lung zones, consistent with atelectasis versus pneumonia. 2. Left ventricular enlargement of the heart. Labs Labs: Laboratory Results - last 24 hr 08/16/24 05:25 WBC 7.0 RBC 3.12 L Hgb 9.9 L Hct 31.0 L MCV 99.4 MCH 31.7 MCHC 31.9 L RDW 13.2 Plt Count 177 MPV 10.0 Immature Gran % (Auto) 1.0 H Neut % (Auto) 78.6 H Lymph % (Auto) 11.6 L Rankin % (Auto) 8.5 Eos % (Auto) 0.0 Baso % (Auto) 0.3 Lymph # (Auto) 0.81 L Rankin # (Auto) 0.6 Eos # (Auto) 0.0 Baso # (Auto) 0.0 Abs Immat Gran (auto) 0.07 H Absolute Neuts (auto) 5.5 Absolute Nucleated RBC 0.000 Nucleated RBC % 0.0 Sodium 136 L Potassium 3.9 Chloride 104 Carbon Dioxide 24 Anion Gap 8 BUN 76 H Creatinine 4.00 H Estim Creat Clear Calc 12 Estimated GFR 14 L Glucose 84 Calcium 8.5 Total Bilirubin 0.9 AST 27 ALT 20 Alkaline Phosphatase 61 Total Protein 6.0 L Albumin 3.3 L Quality VTE Prophylaxis VTE prophylaxis: pharmacologic ordered
--- NOTE | 2024-08-16 08:07 | PM.DS ---
DS: Admitting Diagnosis Discharge Date 08/16 Admitting Diagnosis sob DS: Discharge Diagnosis Discharge Diagnosis (1) CHF exacerbation: Code(s): I50.9 - Heart failure, unspecified Status: Acute Assessment and Plan: Patient was recently admitted from 06/07-06/13/2024 for similar symptoms resulting in a new diagnosis of heart failure with reduced EF. Per chart review on 06/09 there was a discussion about dialysis, however patient declined resulting in no cardiac catheterization being performed. He remained on his beta-alli metoprolol succinate 100 mg p.o. q.a.m. at that time. Unable to start lasix, spironolactone or Jardiance due to his severely reduced GFR at time of discharge. Patient was placed on a low sodium and diet and fluid restriction on discharge. - Patient reporting decrease UOP, possible etiology of volume overload and HF exacerbation. - BNP: > 30,000 - EKG: Atrial pacing. 70 beats per minute. No signs of ischemia. - Chest XR 08/11: Cardiomegaly with cardiac decompensation and pulmonary edema. Pneumonitis is not excluded. Bilateral basilar atelectasis with minimal effusion. - Chest XR 08/13: Bibasilar atelectasis versus pneumonia with bilateral pleural effusion. Underlying pulmonary edema cannot be excluded. Changes are slightly increased compared to previous study. - Chest XR 08/14: Improved airspace opacities in the lower lung zones, consistent with atelectasis versus pneumonia. Left ventricular enlargement of the heart. - Echo 06/08/2024: LVEF 45-50% with mild pulmonary hypertension - Bumex 1 mg BID - Renal dialysis diet - Monitor vital signs, I&Os, BUN/creatinine, daily weights, neuro status and patient is a fall risk - Monitor serum electrolytes, Keep serum Potassium>4 and serum Magnesium>2 and CBC - nephrology is following as well to aid with fluid overload (2) Fluid overload: Code(s): E87.70 - Fluid overload, unspecified Status: Acute Assessment and Plan: see plan above #1 CHF exacerbation - transitioned to PO bumex (3) CKD (chronic kidney disease): Qualifiers: Chronic kidney disease stage: unspecified stage Qualified Code(s): N18.9 - Chronic kidney disease, unspecified Code(s): N18.9 - Chronic kidney disease, unspecified Status: Chronic Assessment and Plan: 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 Baseline creatinine is approximately 2.7 - 3.5 with GFR of 20 per chart review. However most recently running Cr 3.3-3.7. BUN/Cr 63/3.6 with GFR 16 on admission. - Monitor vital signs, I&Os, BUN/creatinine, daily weights, neuro status and patient is a fall risk - Monitor serum electrolytes, Keep serum Potassium>4 and serum Magnesium>2 and CBC - Avoid nephrotoxic medications - Renally dose medications - Nephrology consulted this may be a situation where we have to accept a higher creatinine in order to maintain relative stability in his volume status with ongoing diuretic therapy may come a point where diuretics alone are not able to keep him stable - hence, he is at risk for NURSES' ASSOCIATION COUNSELOR/dialysis in the future follow trend of repeat labs and UOP (4) Essential hypertension: Code(s): I10 - Essential (primary) hypertension Status: Chronic Assessment and Plan: Chronic, continue home medications. - amlodipine 10 mg daily - metoprolol 100 mg daily - monitor (5) Obstructive sleep apnea: Code(s): G47.33 - Obstructive sleep apnea (adult) (pediatric) Status: Chronic Assessment and Plan: Continue CPAP Plan Disposition: 83-year-old male with a past medical history bilateral carotid stenosis, CKD stage 3, COPD, chronic anemia, hypertension, lupus/SLE, ARTURO compliant with CPAP, overactive bladder, urinary retention, peripheral artery disease, rheumatoid arthritis, Sjogren syndrome presents to the hospital for worsening shortness of breath 2/2 CHF exacerbation. IV lasix transitioned to PO bumex. Nephrology consulted given patients CKD and severely reduced GFR. There may come a point where diuretics alone are not able to keep him stable - hence, he is at risk for NURSES' ASSOCIATION COUNSELOR/dialysis in the future DS: Summary Hospital Course Hospital Course: Hospital Course: 83-year-old male with a past medical history bilateral carotid stenosis, CKD stage 3, COPD, chronic anemia, hypertension, lupus/SLE, ARTURO compliant with CPAP, overactive bladder, urinary retention, peripheral artery disease, rheumatoid arthritis, Sjogren syndrome presents to the hospital for worsening shortness of breath 2/2 CHF exacerbation. IV lasix transitioned to PO bumex. Nephrology consulted: # CKD baseline creatinine had been fluctuating ~ 2.7 - 3.5mg/dl in the last year or so however, more recently with acute hospitalizations, seems to running closer to 3.3 - 3.7mg/dl this may be a situation where we have to accept a higher creatinine in order to maintain relative stability in his volume status with ongoing diuretic therapy there may come a point where diuretics alone are not able to keep him stable - hence, he is at risk for NURSES' ASSOCIATION COUNSELOR/dialysis in the future # Heart failure, unspecified clinically better last Echo noted: EF ~ 45-50% moderate to severe mitral valve regurgitation mild to moderate tricuspid valve regurgitation mild pulmonary hypertension, estimated pulmonary arterial systolic pressure is 42 mmHg volume status better transitioned to oral diuretic therapy follow I/Os, daily weights, and respiratory status continue fluid restriction as well as low salt diet Pt was going to be discharged 08/15- but cr was still elevated and pulse ox was lower on one side vs the other- so it was decided to watch him overnight -repeat Cr and if stable/improved- discharge today with a close f/u with nephrology. Status at Discharge Functional status at discharge: independent ambulation Overall status at discharge: patient is progressing back to baseline Time Spent with Patient Time attestation: Total time spent providing and/or coordinating discharge services: Time spent: Greater than 30 minutes DS: Data Data Completed and Pending Labs on day of discharge: Labs from last 24 hours 08/16/24 05:25 WBC 7.0 RBC 3.12 L Hgb 9.9 L Hct 31.0 L MCV 99.4 MCH 31.7 MCHC 31.9 L RDW 13.2 Plt Count 177 MPV 10.0 Immature Gran % (Auto) 1.0 H Neut % (Auto) 78.6 H Lymph % (Auto) 11.6 L Glynn % (Auto) 8.5 Eos % (Auto) 0.0 Baso % (Auto) 0.3 Lymph # (Auto) 0.81 L Glynn # (Auto) 0.6 Eos # (Auto) 0.0 Baso # (Auto) 0.0 Abs Immat Gran (auto) 0.07 H Absolute Neuts (auto) 5.5 Absolute Nucleated RBC 0.000 Nucleated RBC % 0.0 Sodium 136 L Potassium 3.9 Chloride 104 Carbon Dioxide 24 Anion Gap 8 BUN 76 H Creatinine 4.00 H Estim Creat Clear Calc 12 Estimated GFR 14 L Glucose 84 Calcium 8.5 Total Bilirubin 0.9 AST 27 ALT 20 Alkaline Phosphatase 61 Total Protein 6.0 L Albumin 3.3 L Discharge Plan Discharge Consulting providers: Pedro Rahman Discharging Clinician: Aydee Fragoso Patient Disposition: Home, Self-Care Activity: may shower Diet: renal Discharge Instructions: continue therapy as started with bumex here. continue your fluids and sodium restrictions as discussed and follow your front desk coordinator recommendations for foods that you can what and should avoid. Take mucinex as needed for congestion, continue to do your incentive spiromentry. Your creatinine was elevated- so you will need to have a close follow up with your front desk coordinator for repeat blood work. Patient Instructions: Antibiotic Form, Heart Failure (DC), How to Stop Smoking (DC), Blood Thinners (DC) Stand Alone Forms: General Discharge Information Follow-up/Referrals: Quintin Downey MD [Physician] - 1 Week (repeat kidney function) Vel Gilliam MD [Primary Care Provider] - 2 Weeks Discharge Medications: New guaifenesin [Mucus Relief ER] 600 mg Tablet Extended Release 12hr 1,200 mg PO Q12HR Qty: 60 0RF bumetanide 1 mg Tablet 1 mg PO QAM Qty: 90 0RF Continued amlodipine 10 mg tablet 10 mg PO QAM gabapentin 100 mg capsule 300 mg PO HS simvastatin 10 mg tablet 10 mg PO DAILY Rx Instructions: TAKE 1 TABLET BY MOUTH EVERY DAY tamsulosin 0.4 mg Capsule 0.4 mg PO QAM Qty: 30 1RF albuterol sulfate 90 mcg/actuation HFA aerosol inhaler 2 puff INHALATION Q6H PRN (Reason: Shortness Of Breath) sennosides-docusate sodium [Senokot-S] 8.6-50 mg tablet 2 tab-cap PO BID hydroxychloroquine 200 mg tablet 200 mg PO BID Trelegy Ellipta 100-62.5-25 mcg blister with device 1 inh INHALATION .QD montelukast 10 mg tablet 10 mg PO HS polyethylene glycol 3350 [Miralax] 17 gram Powder In Packet 17 g PO QAM PRN (Reason: constipation) Qty: 30 0RF aspirin 81 mg Tablet,Delayed Release (Dr/Ec) 81 mg PO QAM Qty: 30 0RF sodium bicarbonate 650 mg tablet 650 mg PO BID Qty: 180 3RF metoprolol succinate 100 mg tablet extended release 24 hr 100 mg PO QAM alprazolam 0.25 mg tablet 0.25 mg PO BID Qty: 60 0RF finasteride [Proscar] 5 mg tablet 5 mg PO QAM Qty: 30 0RF Date of admission: 08/13/24 09:52 Primary Care Provider: Vel Gilliam Admitting Provider: Christine Rodriguez V. Attending physician on admission: Frances Bertrand Condition: Stable Quality VTE Prophylaxis VTE prophylaxis: pharmacologic ordered Hospitalist MIPS Heart Failure (Exclusion) Patient has history of Heart Transplant or Left Ventricular Assistive Device?: No IF YES, STOP HERE Heart Failure (Qualifier) Patient has current or prior documentation of LVEF less than or equal to 40%, or mod/servere depressed LVSF?: No IF NO, STOP HERE
[2024-08-16] MEDS: SENNA/DOCUSATE SODIUM TABLET 2 TAB PO (08:53)
[2024-08-16] MEDS: SODIUM BICARBONATE TAB 650 MG TABLET PO (08:53)
[2024-08-16] MEDS: METOPROLOL SUCCINATE EXT REL 100 MG TABCR PO (08:53)
[2024-08-16] MEDS: TAMSULOSIN HCL 0.4 MG CAPSULE PO (08:53)
[2024-08-16] MEDS: guaiFENesin 12 HR 600 MG TABCR 1200 MG PO (08:53)
[2024-08-16] MEDS: ASPIRIN 81 MG ENTERIC TABLET PO (08:53)
[2024-08-16] MEDS: ALPRAZolam (*CRX) 0.25 MG TABLET PO (08:53)
[2024-08-16] MEDS: HYDROXYCHLOROQUINE SULFATE 200 MG TABLET PO (08:53)
[2024-08-16] MEDS: BUMETANIDE 1 MG TABLET PO (08:54)
[2024-08-16] MEDS: amLODIPine BESYLATE 10 MG TABLET PO (08:54)
[2024-08-16] MEDS: FINASTERIDE 5 MG TABLET PO (08:54)
[2024-08-16] MEDS: HEPARIN SODIUM 5,000 UNITS/ML VIAL 5000 UNITS SUB-Q (08:58)
[2024-08-16] MEDS: SENNOSIDES 8.6 MG TABLET PO (10:19)
== END 2024-08-16 13:55 | disposition home or self-care (01) | DRG 291 ==
LOC: ANHED 08-12 01:09 → ANH2MED 08-12 03:25
PROVIDERS: Physician Assistant; Student in an Organized Health Care Education/Training Program; Admitting Provider Internal Medicine; Emergency Provider Emergency Medicine; PCP Family Medicine; Visit Provider Nurse Practitioner
DX: I13.0 Hypertensive heart and chronic kidney disease with heart failure and stage 1 through stage 4 chronic kidney disease, or unspecified chronic kidney disease (principal); I50.33 Acute on chronic diastolic (congestive) heart failure; N18.4 Chronic kidney disease, stage 4 (severe); D63.1 Anemia in chronic kidney disease; F17.210 Nicotine dependence, cigarettes, uncomplicated; G47.33 Obstructive sleep apnea (adult) (pediatric); I73.9 Peripheral vascular disease, unspecified; I65.23 Occlusion and stenosis of bilateral carotid arteries; J44.9 Chronic obstructive pulmonary disease, unspecified; M06.9 Rheumatoid arthritis, unspecified; M32.9 Systemic lupus erythematosus, unspecified; M35.00 Sjogren syndrome, unspecified; N32.81 Overactive bladder; R33.9 Retention of urine, unspecified; Z99.89 Dependence on other enabling machines and devices; Z85.46 Personal history of malignant neoplasm of prostate; Z95.0 Presence of cardiac pacemaker; Z96.653 Presence of artificial knee joint, bilateral; Z20.822 Contact with and (suspected) exposure to COVID-19; Z79.82 Long term (current) use of aspirin; Z66 Do not resuscitate
CPT/HCPCS: 36415; 71045; 80053; 82948; 83605; 83880; 84145; 85025; 87636; 93005; 94640; 96372; 96374; 96376; 97110; 97161; 97165; 97530; 99285; A9270; G0378; J1644; J1939; J1940

== ENCOUNTER 2024-08-30 11:00 | Outpatient (RCR) | payer OTHER, SELFPAY ==
[2024-07-26 13:07] VITALS: BMI 26.4
[2024-07-26 13:16] VITALS: BMI 26.4
[2024-08-30 13:40] VITALS: BMI 26.4
== END 2024-10-15 08:27 | disposition home or self-care (01) ==
LOC: ANHDMC 11:00
PROVIDERS: PCP Family Medicine; Visit Provider Family Medicine
DX: N18.4 Chronic kidney disease, stage 4 (severe) (principal); Z71.3 Dietary counseling and surveillance
CPT/HCPCS: 97802; 97803

== ENCOUNTER 2024-09-03 11:41 | Emergency (ER) | payer OTHER, SELFPAY ==
--- NOTE | ~2024-09-03 | CT_ITS ---
EXAMINATION: CT brain wo con DATE: 09/03/2024 12:26 INDICATION: Head injury TECHNIQUE: Computed tomography (CT) of the head was performed without intravenous contrast. Sagittal and coronal reconstructions were performed. The mA was adjusted according to patient size. Iterative reconstruction technique was employed. The dose-length product was 605.33 mGy-cm. COMPARISON: head CT dated 06/07/2024 FINDINGS: Occipital scalp hematoma and laceration. No calvarial fracture. No acute intracranial hemorrhage, acu te infarction or abnormal extra axial fluid collection. There is mild to moderate scattered white mat ter hypoattenuation consistent with chronic small vessel ischemic disease. Symmetric prominence of th e sulcipresent consistent with mild age-appropriate diffuse cerebral volume loss. Ventricles are norm al and symmetric. No mass/mass effect. Intracranial calcified cerebral atherosclerosis is noted. The orbits, paranasal sinuses and mastoid air cells are normal. IMPRESSION: 1. No fracture or acute intracranial process. 2. Age-related changes including mild diffuse volume loss and mild to moderate scattered white matter hypoattenuation consistent with chronic small vessel ischemic disease. Reviewed, dictated and finalized at location B. SETTER IMPRESSION: 1. No fracture or acute intracranial process. 2. Age-related changes including mild diffuse volume loss and mild to moderate scattered white matter hypoattenuation consistent with chronic small vessel isc hemic disease.
[2024-09-03 11:42] VITALS: BP 130/54; PULSE 73; RESP 20; TEMP 36.3; O2SAT 100
--- NOTE | 2024-09-03 12:01 | ED.GENADULT ---
HPI - General Adult General Chief complaint: Fall Stated complaint: fall, head lac Time Seen by Provider: 09/03/24 11:50 History of Present Illness HPI narrative: 83-year-old male presents emergency department for evaluation after having a ground level fall. Patient reports he was walking when his left knee gave out causing him to fall backward and struck his head on a tiled a cabinet. This resulted in a posterior scalp laceration. Patient denies loss conscious. Patient denies any current headache and patient denies any neck pain or any other pain or injury. Related Data Home Medications Medication Instructions Recorded Confirmed hydroxychloroquine 200 mg tablet 200 mg PO BID 07/27/20 08/28/24 amlodipine 10 mg tablet 10 mg PO QAM 08/19/21 08/28/24 fluticasone fur. 100 mcg-umeclid 1 inh inhalation .QD 12/22/23 08/28/24 62.5 mcg-vilant 25 mcg inhalat.powder (Trelegy Ellipta) metoprolol succinate 100 mg 100 mg PO QAM 01/04/24 08/28/24 tablet,extended release 24 hr montelukast 10 mg tablet 10 mg PO HS 02/29/24 08/28/24 gabapentin 100 mg capsule 300 mg PO HS 03/28/24 08/28/24 simvastatin 10 mg tablet 10 mg PO DAILY 05/25/24 08/28/24 albuterol sulfate 90 mcg/actuation 2 puff inhalation Q6H PRN 08/12/24 08/28/24 aerosol inhaler Shortness Of Breath Allergies Allergy/AdvReac Type Severity Reaction Status Date / Time No Known Allergies Allergy Verified 09/03/24 11:48 Review of Systems Review of Systems: All systems reviewed & are unremarkable except as noted in HPI and below PMFSH Past Medical History Medical History Bilateral carotid artery stenosis 50 to 69% stenosis on the right and greater than 70% stenosis on the left CKD (chronic kidney disease) Stage III managed by Dr. Quintin Downey COPD exacerbation COVID Erythropoietin deficiency anemia Essential hypertension History of prostate cancer HTN (hypertension) Lupus (systemic lupus erythematosus) Monoclonal gammopathy Obstructive sleep apnea With nasal CPAP use Orthostasis Overactive bladder Peripheral artery disease With moderately decreased ABIs bilaterally December 2011 Rectus diastasis Renal mass, right Rheumatoid arthritis Screening for thyroid disorder Sjogrens syndrome Spinal stenosis at L4-L5 level Surgical History Surgical History H/O bilateral inguinal hernia repair pen reccurent RIH and open L ing. hernia rep w/ mesh 03/12/24 History of permanent cardiac pacemaker placement 2021 History of prostate surgery History of right inguinal hernia repair 2016, previous repair of mesh failure History of total bilateral knee replacement With the right knee being replaced once in the left knee being replaced 3 times with chronic left knee pain Hx of left inguinal hernia repair 2016, repair of mesh failure S/P bilateral inguinal hernia repair Family History Family History Mother Cirrhosis Sibling Esophageal cancer Father Acute myocardial infarction Lung disease Heart disease Sibling Esophageal cancer Skin cancer Social History Social History Social History: Patient continues to smoke half a pack a day. Denies drug use. No alcohol use. Lives at home with his and daughter. 3 dogs. Patient smoked half a pack a day (stopped 1 month ago). Denies drug use. No alcohol use. Code status: Full code Healthcare power of commonwealth attorney: Linda Frank () Smoking packs per day: 0.5 Smoking cigarettes per day: 10.0 Years smoked: 65 Smoking pack-years: 32.50 Smoking status: Former smoker Tobacco type: cigarettes Second hand tobacco smoke exposure: No Smoking end date: 06/24/24 Additional smoking assessment comments: SMOKING 0.5 PACK/DAY Alcohol intake: never Substance use: never Substance use type: does not use Do You Feel Safe in your Home?: Yes Lack of Transportation: No Lack of Food: Never True Current Housing: I Have Housing Concerned About Future Housing: No Difficulty Paying Gas/Electric Bills: No Difficulty Paying for Meds: No Currently Unemployed: No Education: High School Diploma/GED Difficulty w/ Childcare or Family Care: No Living arrangements: with family Additional living arrangements comments: and daughter Occupation/Education: 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 HEAD: normocephalic, atraumatic. EYES: PERRLA/EOMI, conjunctivae clear. NOSE: Normal no drainage EARS:TMS clear with good light reflex. THROAT: Pharynx clear, no exudate. NECK: Supple. No adenopathy, no masses. RESPIRATORY: Airway patent, respirations nonlabored. Clear to auscultation bilaterally, no rales, rhonchi, wheezing. CARDIOVASCULAR: Regular rate and rhythm without murmurs rubs or gallops. ABDOMINAL: Soft, nontender, nondistended, normal bowel sounds MUSCULOSKELETAL: Moves all extremities. Strength/ROM intact, No edema, No calf tenderness. NEURO: Alert. Cranial nerves II through XII intact. Good gait. Good coordination SKIN: Warm, dry. Normal Color Course Course Emergency Course: APPEARANCE: Well appearing, no pain, no distress, well-nourished. HEAD: normocephalic, atraumatic. EYES: PERRLA/EOMI, conjunctivae clear. NOSE: Normal no drainage EARS:TMS clear with good light reflex. THROAT: Pharynx clear, no exudate. NECK: Supple. No adenopathy, no masses. RESPIRATORY: Airway patent, respirations nonlabored. Clear to auscultation bilaterally, no rales, rhonchi, wheezing. CARDIOVASCULAR: Regular rate and rhythm without murmurs rubs or gallops. ABDOMINAL: Soft, nontender, nondistended, normal bowel sounds MUSCULOSKELETAL: Moves all extremities. Strength/ROM intact, No edema, No calf tenderness. NEURO: Alert. Cranial nerves II through XII intact. Good gait. Good coordination SKIN: Posterior scalp laceration Vital Signs Vital signs: Vital Signs Temperature 97.4 F L 09/03/24 11:42 Pulse Rate 73 09/03/24 11:42 Respiratory Rate 20 09/03/24 11:42 Blood Pressure 130/54 L 09/03/24 11:42 Pulse Oximetry 100 09/03/24 11:42 Oxygen Delivery Room Air 09/03/24 11:42 Temperature 97.4 F L 09/03/24 11:42 Pulse Rate 73 09/03/24 11:42 Respiratory Rate 20 09/03/24 11:42 Blood Pressure 130/54 L 09/03/24 11:42 Pulse Oximetry 100 09/03/24 11:42 Oxygen Delivery Room Air 09/03/24 11:42 Procedures Laceration Laceration 1: Time: 13:20 Site: scalp Size (cm): 4 Description: linear Depth: simple, single layer Local Anesthetic: lidocaine 1% and with epi Amount of anesthesia used (mL): 5 Pre-repair: wound explored, irrigated and irrigated extensively ====== Skin Level ====== ====== Subcutaneous Layer ====== ====== Muscle Layer ====== ====== Tendon Layer ====== Medical Decision Making MDM Narrative Medical decision making narrative: 83-year-old male presents emergency department for evaluation for a scalp injury. Patient states that he had a mechanical fall from his left knee giving out: Fall backwards and strike his head. Head CT was negative for acute intracranial abnormality. Patient did have a scalp laceration requiring staple repair. This was repaired as described in the procedure note. Patient's tetanus was updated. All questions concerns were addressed patient family are comfortable the plan for discharge and close follow-up. Differential Diagnosis Differential Diagnosis: Subarachnoid hemorrhage, subdural hematoma, scalp laceration, scalp hematoma Medical Records Medical records reviewed: Yes I reviewed the external patient's medical records. Vital Signs Vital Signs: Vital Signs Temperature 97.4 F L 09/03/24 11:42 Pulse Rate 73 09/03/24 11:42 Respiratory Rate 20 09/03/24 11:42 Blood Pressure 130/54 L 09/03/24 11:42 Pulse Oximetry 100 09/03/24 11:42 Oxygen Delivery Room Air 09/03/24 11:42 Temperature 97.4 F L 09/03/24 11:42 Pulse Rate 73 09/03/24 11:42 Respiratory Rate 20 09/03/24 11:42 Blood Pressure 130/54 L 09/03/24 11:42 Pulse Oximetry 100 09/03/24 11:42 Oxygen Delivery Room Air 09/03/24 11:42 Imaging Data Radiologist's impression: Impressions Head CT 09/03/24 12:33 IMPRESSION: 1. No fracture or acute intracranial process. 2. Age-related changes including mild diffuse volume loss and mild to moderate scattered white matter hypoattenuation consistent with chronic small vessel ischemic disease. Discharge Plan Discharge Clinical Impression: Laceration of scalp, Head injury Patient Disposition: Home, Self-Care Condition: Stable Instructions: Antibiotic Form, Head Injury (ED), Staple Care (ED) Additional Instructions: Vincent need to be removed in 5-7 days. Have close follow-up with your primary care physician. Wound care as directed. If you have any worsening symptoms then please call or return to the emergency department. Prescriptions: No Action amlodipine 10 mg tablet 10 mg PO QAM gabapentin 100 mg capsule 300 mg PO HS simvastatin 10 mg tablet 10 mg PO DAILY Rx Instructions: TAKE 1 TABLET BY MOUTH EVERY DAY tamsulosin 0.4 mg Capsule 0.4 mg PO QAM Qty: 30 1RF albuterol sulfate 90 mcg/actuation HFA aerosol inhaler 2 puff INHALATION Q6H PRN (Reason: Shortness Of Breath) bumetanide 1 mg Tablet 1 mg PO QAM Qty: 90 0RF guaifenesin [Mucus Relief ER] 600 mg Tablet Extended Release 12hr 1,200 mg PO Q12HR Qty: 60 0RF hydroxychloroquine 200 mg tablet 200 mg PO BID Trelegy Ellipta 100-62.5-25 mcg blister with device 1 inh INHALATION .QD montelukast 10 mg tablet 10 mg PO HS polyethylene glycol 3350 [Miralax] 17 gram Powder In Packet 17 g PO QAM PRN (Reason: constipation) Qty: 30 0RF aspirin 81 mg Tablet,Delayed Release (Dr/Ec) 81 mg PO QAM Qty: 30 0RF sodium bicarbonate 650 mg tablet 650 mg PO BID Qty: 180 3RF metoprolol succinate 100 mg tablet extended release 24 hr 100 mg PO QAM finasteride [Proscar] 5 mg tablet 5 mg PO QAM Qty: 30 0RF alprazolam 0.25 mg tablet 0.25 mg PO BID Qty: 60 0RF sennosides-docusate sodium [Senokot-S] 8.6-50 mg tablet 2 tab-cap PO BID Qty: 120 2RF Follow-up/Referrals: Vel Gilliam MD [Primary Care Provider] -
[2024-09-03] MEDS: TETANUS,DIPHTHERIA,AC PERTUSSIS ADULT (0.5 ML) BOOSTRIX IM (13:38)
== END 2024-09-03 13:48 | disposition home or self-care (01) ==
PROVIDERS: Emergency Provider Emergency Medicine; PCP Family Medicine
DX: S01.01XA Laceration without foreign body of scalp, initial encounter (principal); W18.30XA Fall on same level, unspecified, initial encounter; N18.30 Chronic kidney disease, stage 3 unspecified; I12.9 Hypertensive chronic kidney disease with stage 1 through stage 4 chronic kidney disease, or unspecified chronic kidney disease; M32.9 Systemic lupus erythematosus, unspecified; Z85.46 Personal history of malignant neoplasm of prostate; G47.33 Obstructive sleep apnea (adult) (pediatric); M06.9 Rheumatoid arthritis, unspecified; F17.210 Nicotine dependence, cigarettes, uncomplicated; Z23 Encounter for immunization
CPT/HCPCS: 12002; 70450; 90471; 90715; 99284

== ENCOUNTER 2024-09-06 13:29 | Outpatient (CLI) | payer OTHER, SELFPAY ==
--- NOTE | ~2024-09-06 | XR_ITS ---
CHEST RADIOGRAPH, PA AND LATERAL CLINICAL HISTORY: J18.9 - Pneumonia, unspecified organism . COMPARISON: 08/11/2024 TECHNIQUE: PA and lateral views of the chest. FINDINGS The left mid lung is partially obscured due to pacemaker generator. Wires project over the right atrium and right ventricle. The remainder of the cardiomediastinal silhouette is otherwise unremarkable. Interval resolution of the bilateral pleural effusions, seen on previous examination. The lungs are now clear. Visualized osseous structures and soft tissues are unremarkable. IMPRESSION: No focal infiltrate or effusion. Reviewed, dictated and finalized at location A. K AIRMAN
== END 2024-09-06 13:30 | disposition home or self-care (01) ==
PROVIDERS: PCP Family Medicine; Visit Provider Nurse Practitioner Family
DX: J18.9 Pneumonia, unspecified organism (principal)
CPT/HCPCS: 71046

== ENCOUNTER 2025-02-20 11:59 | Outpatient (CLI) | payer OTHER, SELFPAY ==
[2025-02-20 12:13] LABS: Basophils Percent Auto 0.7 % (0.2-1.2); Eosinophils Absolute Auto 0.4 K/mm3 (0-0.3); Eosinophils Percent Auto 5.9 % (0-4.4); Hematocrit 30.1 % (42.0-52.0); Hemoglobin 9.7 g/dL (14.0-18.0); Immature Granulocyte Absolute 0.03 K/mm3 (0.00-0.031); Immature Granulocyte Percent A 0.5 % (0-0.5); Lymphocytes Absolute Auto 0.89 K/mm3 (0.9-3.2); Lymphocytes Percent Auto 14.9 % (18.3-44.2); Mean Corpuscular HGB Conc 32.2 g/dl (32-36); Mean Corpuscular Hemoglobin 33.8 pg (26-34); Mean Corpuscular Volume 104.9 fl (80-100); Mean Platelet Volume 9.2 fl (7.4-10.4); Monocytes Absolute Auto 0.6 K/mm3 (0.1-0.6); Monocytes Percent Auto 10.2 % (2.6-8.5); Neutrophils Absolute Auto 4.1 K/mm3 (1.3-6.7); Neutrophils Percent Auto 67.8 % (45.5-73.1); Platelet Count Result 205 k/mm3 (150-375); Red Blood Count 2.87 M/mm3 (4.6-6.20)
--- OUTSIDE RECORDS SUMMARY | 2025-02-20 13:16 | XMS_ITS | Encounter Summary ---
Author Organization [facility] Healthcare Address [address] [place] [address] Care Team Providers Care Instructor Looping Name Role Phone Fina Todd MD Unavailable [phone] Quintin Downey MD Unavailable [phone] Bipin Wetzel MD Unavailable Yancy Romeo MD Unavailable Maged Hercules MD Unavailable [phone] Maged Hercules MD Unavailable Nigel Elizalde MD Unavailable [phone] Issa Sanches MD Unavailable Miscellaneous, Not In File Unavailable Unava Vel Lazo MD Primary Care Provider [phone] Encounter Details Date Type Department Care Team (Late st Contact Info) Description 01/21/2025 Results Follow-Up [facility] Medical Group Cardiology [address] [place] [address] Maged Fowler MD [facility] [address] Social History Tobacco Use Types Packs/Day Years Used Date Smoking Tobacco: Former Cigarettes 0.8 63.7 S tarted: 1961 Passive Smoke Exposure: Past Smokeless Tobacco: Never Comments:34 pack hx Alcohol Use Standard Drinks/Week Comments No 0 (1 standard drink = 0.6 oz pur e alcohol) AUDIT-C Answer Date Recorded Q1: How often do you have a drink containing alcohol? Never 01/22/2025 Q2: How many drinks containi ng alcohol do you have on a typical day when you are drinking? Patient does not drink Q3: How often do you have si x or more drinks on one occasion? Never 01/22/2025 PHQ-2 Answer Date Recorded PHQ-2 Total Score (If total score is 3 or more points, staff should administer the PHQ-9) 0 06/25/2020 Personal Safety Answer Date Recorded Have you ever been in or are you currently in a harmful physical or emotional relationship or is someone making you feel afraid or unsafe? 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 Never 01/22/2025 3:52 PM CDT Omar Ann RN Q2: How many drinks containing alcohol do you have on a typical day when you are drinking? Patient does not drink 01/22/2025 3:52 PM CDT Omar Ann RN Q3: How often do you have six or more drinks on one occasion? Never 01/22/2025 3:52 PM CDT Omar Ann RN documented as of this encounter Plan of Treatment Not on file documented as of this encounter Visit Diagnoses Not on filedocumented in this encounter Care Teams Instructor Looping Relationship Specialty Start Date End Date Vel Gilliam MD [address] [place] [address] PCP - General Family Medicine 11/07/24 Fina Todd MD Plan Checker Dermatology 03/05/19 Quintin Downey MD Consulting Physician Nephrology 03/06/19 Bipin Wetzel MD Referring Physician Cardiovascular Disease 04/08/20 Yancy Romeo MD [address] [facility] [address] [place], [place] Referring Physician Rheumatology 04/08/20 Maged Hercules MD [address] [place] [address] Consulting Physician Hematology and Oncology 09/30/20 Maged Hercules MD [address] [place] [address] Medical Oncologist/Hematologis t Hematology and Oncology 09/30/20 Nigel Elizalde MD [address] [place] [address] Consulting Physician Urology 11/29/23 Issa Sanches MD [address] [place] [address] Consulting Physician Cardiology 11/29/23 Miscellaneous, Not In File 12/13/23 documented as of this encounter
--- OUTSIDE RECORDS SUMMARY | 2025-02-20 13:16 | XMS_ITS | Encounter Summary ---
Author Organization [facility] Address [address] [place] [address] Care Team Providers Care Cord Tire Builder Name Role Phone Vel Gilliam MD Primary Care Provider Encounter Details Date Type Department Care Team (Late st Contact Info) Description 08/04/2005 Outpatient Historical [facility] Support Serv. (Adt Cardiology-[facility]) [address] 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 Gender Identity Not on file Sexual Orientation Not on file documented as of this encounter Plan of Treatment Upcoming Encounters Date Type Department Care Team (Late st Contact Info) Description 03/13/2025 4:30 PM CDT Telephone Check Up [facility] Oncology and Hematology - [place] [address] [place] [address] Armond Epstein MD [address] [facility] [address] [place] [address] documented as of this encounter Visit Diagnoses Not on filedocumented in this encounter Care Teams Cord Tire Builder Relationship Specialty Start Date End Date Vel Gilliam MD [address] [place] [address] PCP - General Family Practice 02/14/14 documented as of this encounter
--- OUTSIDE RECORDS SUMMARY | 2025-02-20 13:16 | XMS_ITS | Encounter Summary ---
Author Organization [facility] Address 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 Gender Identity Not on file Sexual Orientation Not on file documented as of this encounter Plan of Treatment Upcoming Encounters Date Type Department Care Team (Late st Contact Info) Description 03/13/2025 4:30 PM CDT Telephone Check Up [facility] Oncology and Hematology - [place] [address] [place] [address] [address] [place] [address] Armond Epstein MD [address] [place] [address] [address] [place] [address] documented as of this encounter Visit Diagnoses Not on filedocumented in this encounter Care Teams Coagulating Operator Relationship Specialty Start Date End Date Vel Gilliam MD [address] [place] [address] PCP - General Family Practice 02/14/14 documented as of this encounter
--- OUTSIDE RECORDS SUMMARY | 2025-02-20 13:16 | XMS_ITS | Encounter Summary ---
Author Organization [facility] Address [address] [place] [address] Care Team Providers Care Marble Cutter Operator Name Role Phone Vel Gilliam MD Primary Care Provider [phone] Encounter Details Date Type Department Care Team (Late Contact Info) Description 03/07/2008 Outpatient Historical [facility] Family Medicine [place] [address] [facility] [place] [address] [place] [address] 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 Gender Identity Not on file Sexual Orientation Not on file documented as of this encounter Plan of Treatment Upcoming Encounters Date Type Department Care Team (Late st Contact Info) Description 03/13/2025 4:30 PM CDT Telephone Check Up [facility] Oncology and Hematology - [place] [address] [place] [address] Armond Epstein MD [address] [facility] [address] [place] [address] documented as of this encounter Visit Diagnoses Not on filedocumented in this encounter Care Teams Marble Cutter Operator Relationship Specialty Start Date End Date Vel Gilliam MD [address] [place] [address] PCP - General Family Practice 02/14/14 documented as of this encounter
--- OUTSIDE RECORDS SUMMARY | 2025-02-20 13:16 | XMS_ITS | Encounter Summary ---
Author Organization [facility] Address [address] [place] [address] Care Team Providers Care Motor Hotel Manager Name Role Phone Vel Gilliam MD Primary Care Provider [phone] Encounter Details Date Type Department Care Team (Late st Contact Info) Description 10/07/[address] [facility] Family Medicine [place] [address] [facility] [address] [place] [address] [place] [address] [address] 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 Gender Identity Not on file Sexual Orientation Not on file documented as of this encounter Last Filed Vital Signs Vital Sign Reading Time Taken Comments Blood Pressure 150/70 10/07/2005 9:15 AM OPERATIONS PROFESSIONAL Pulse 50 10/07/2005 9:15 AM OPERATIONS PROFESSIONAL Temperature - - Respiratory Rate - - Oxygen Saturation - - Inhaled Oxygen Concentration - - Weight 93 kg (205 lb) 10/07/2005 9:15 AM OPERATIONS PROFESSIONAL Height - - Body Mass Index - - documented in this encounter Plan of Treatment Upcoming Encounters Date Type Department Care Team (Late st Contact Info) Description 03/13/2025 4:30 PM CDT Telephone Check Up [facility] Oncology and Hematology - [place] [address] [facility] [address] [place] [address] Armond Epstein MD [address] [facility] [address] [place] [address] documented as of this encounter Visit Diagnoses Not on filedocumented in this encounter Care Teams Motor Hotel Manager Relationship Specialty Start Date End Date Vel Gilliam MD [address] [place] [address] PCP - General Family Practice 02/14/14 documented as of this encounter
--- OUTSIDE RECORDS SUMMARY | 2025-02-20 13:16 | XMS_ITS | Encounter Summary ---
Author Organization [facility] Address [address] [place] [address] Care Team Providers Care Collision Technician Name Role Phone Vel Gilliam MD Primary Care Provider [phone] Encounter Details Date Type Department Care Team (Latest Contact Info) Description 12/25/2003 Outpatient Historical [facility] KARLENE [place], [place] [address] 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 Gender Identity Not on file Sexual Orientation Not on file documented as of this encounter Plan of Treatment Upcoming Encounters Date Type Department Care Team (Late st Contact Info) Description 03/13/2025 4:30 PM CDT Telephone Check Up [facility] Oncology and Hematology - [place] [address] [address] [facility] [address] [place] [address] Armond Epstein MD [address] [facility] [address] [place] [address] documented as of this encounter Visit Diagnoses Diagnosis Pain in limb- Primary documented in this encounter Care Teams Collision Technician Relationship Specialty Start Date End Date Vel Gilliam MD [address] [place] [address] PCP - General Family Practice 02/14/14 documented as of this encounter
--- OUTSIDE RECORDS SUMMARY | 2025-02-20 13:16 | XMS_ITS | Encounter Summary ---
Author Organization [facility] Healthcare Address [address] [place] [address] Care Team Providers Care Microbiology Soil Scientist Name Role Phone Lynsey Nur MD Primary Care Provider Lynsey Nur MD Unavailable [phone] Yancy Romeo MD Unavailable [phone] Fina Todd MD Unavailable [phone] Nigel Herrmann MD Unavailable Ezekiel Duenas MD Unavailable Quintin Downey MD Unavailable [phone] Bipin Wetzel MD Unavailable Bipin Wetzel MD Unavailable Yancy Romeo MD Unavailable [phone] Raul Bunn MD Unavailable [phone] Nicki Villanueva MD Unavailable Maged Hercules MD Unavailable [phone] Maged Hercules MD Unavailable [phone] Vel Gilliam MD Primary Care Provider [phone] Nigel Elizalde MD Unavailable [phone] Issa Sanches MD Unavailable Miscellaneous, Not In File Unavailable Unava ilable Vel Gilliam MD Primary Care Provider Encounter Details Date Type Department Care Team (Late st Contact Info) Description 05/18/2019 Telephone [facility] - Interventional Radiology [address] [place] [id number] Rashmi Houser RN Social History Tobacco Use Types Packs/Day Years Used Date Smoking Tobacco: Former Cigarettes Q uit: 1998 Smokeless Tobacco: Never Alcohol Use Standard Drinks/Week Comments No 0 (1 standard drink = 0.6 oz pur e alcohol) Sex and Gender Information Value Date Recorded Sex Assigned at Not on file 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 Patient to be on COVID precautions & monitored for signs and symptoms for 10 days. Negative testing does not negate need for precautions. Last day of exposure precautions are 12/23/23. SANCHEZ Pereira, [facility]. 12/13/2023 12/14/2023 12/24/2023 3:[address] documented as of this encounter Care Teams Microbiology Soil Scientist Relationship Specialty Start Date End Date Lynsey Nur MD PCP - General Internal Medicine 10/06/18 07/29/21 Lynsey Nur MD [address] [place] [address] PCP - Essence Attributed PCP 10/24/15 06/15/22 Vel Gilliam MD [address] [place] [address] PCP - General Family Medicine 07/30/21 11/06/24 Vel Gilliam MD [address] [place] [address] PCP - General Family Medicine 11/07/24 Yancy Romeo MD [address] [place] [address] Consulting Physician Rheumatology 03/05/19 04/07/20 Fina Todd MD [address] [place] [address] Novelty Candy Maker Dermatology 03/05/19 Nigel Herrmann MD [address] [place] [address] Surgeon Vascular Surgery 03/05/19 11/28/23 Ezekiel Duenas MD [address] [place] [place] [address] Surgeon Orthopedic Surgery 03/06/19 11/28/23 Quintin Downey MD [address] [place] [place] [address] Consulting Physician Nephrology 03/06/19 Bipin Wetzel MD [address] [place] [address] Referring Physician Cardiovascular Disease 12/28/19 Bipin Wetzel MD [address] [place] [address] Referring Physician Cardiovascular Disease 04/08/20 Yancy Romeo MD [address] [facility] [address] [place] [address] Referring Physician Rheumatology 04/08/20 [place] [address] [place] [address] Consulting Physician Gastroenterology 08/04/20 0 Nicki Villanueva MD [address] [place] [address] Medical Oncologist/Hematologi Hematology 08/04/20 09/29/20 Maged Hercules MD [address] [place] [address] Consulting Physician Hematology and Oncology 09/30/20 Maged Hercules MD [address] [place] [address] Medical Oncologist/Hematologi Hematology and Oncology 09/30/20 Nigel Elizalde MD [address] [place], [place] [address] Consulting Physician Urology 11/29/23 Issa Sanches MD [address] [facility] [address] [place] [address] Consulting Physician Cardiology 11/29/23 Miscellaneous, Not In File 12/13/23 documented as of this encounter
--- OUTSIDE RECORDS SUMMARY | 2025-02-20 13:16 | XMS_ITS | Encounter Summary ---
Author Organization [facility] Address [address] [place] [address] Care Team Providers Care Collision Technician Name Role Phone Vel Gilliam MD Primary Care Provider [phone] Encounter Details Date Type Department Care Team (Late st Contact Info) Description 05/12/2006 Orders Only [facility] Family Medicine [place] [address] [place] [address] [place] [address] [address] 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 BLOOD PRESSURE: 130/70. Right Arm Sitting PULSE: 56. Right Radial, Regular ALLERGIES: No known drug allergies. CHIEF COMPLAINT Here for follow up evaluation./est HISTORY: lab test off lovastatin still having some right arm pain saw orthopedist about knees and he does not have any other ideas HISTORY: 401.1-HYPERTENSION ESSENTIAL BENIGN The patient denies chest pain, shortness of breath, dyspnea on exertion, pedal edema, or headache. CURRENT MEDICATION LIST: ENTEX PSE ORAL TABLET 12 HR 120-600 MG, 1 Two Times A Day, As Needed ANDROGEL TRANSDERMAL GEL(JELLY) 25 MG/2.5GM, 1 Every Day ASPIRIN ORAL TABLET ENTERIC COATED 81 MG, 1 Every Morning LISINOPRIL ORAL TABLET 40 MG, 1 Every Day NORVASC ORAL TABLET 10 MG, 1 Every Day PIROXICAM ORAL CAPSULE CONVENTIONAL 20 MG, 1 Every Morning ROS: GENERAL: Normal activity and energy level, no change in appetite. No major weight gain or loss. No malaise, chills, fever, diaphoresis.. ENT: No hearing loss, epistaxis, hoarseness or dysphagia. No sinus congestion.. ENDOCRINE: No heat or cold intolerance, no excessive thirst.. CARDIAC: See HISTORY OF PRESENT ILLNESS. RESPIRATORY: No dyspnea, cough, hemoptysis or wheezing.. : No dysuria or hematuria.. GI: No abdominal pain, nausea, vomiting, diarrhea, constipation, melena, or hematochezia.. MUSCULOSKELETAL: See HISTORY OF PRESENT ILLNESS. PSYCHIATRIC: No increased nervousness, mood changes or depression. Coping well. SOCIAL HISTORY: MARITAL HISTORY: MARITAL STATUS: m TOBACCO USE: DISCUSSED SMOKING: quit 1998. ALCOHOL: DISCUSSED ALCOHOL: 0. CAFFEINE: The patient drinks caffeine once a day. EXERCISES: The patient exercises daily. The exercise is predominantly walking. DIET: Follows a no added salt diet, low saturated fat. PHYSICAL EXAMINATION: CONSTITUTIONAL: GENERAL APPEARANCE: Healthy appearing patient in no distress. EYES: CONJUNCTIVAE/LIDS: Conjunctivae and lids appear normal. NECK/THYROID: Trachea midline. No thyroid enlargement, tenderness, or mass. No supraclavicular or cervical adenopathy. RESPIRATORY: Clear to auscultation and percussion. Normal respiratory effort. CARDIOVASCULAR: CARDIAC: Regular rhythm. No murmurs, rubs, or gallops. ARTERIAL: Normal carotids, normal abdominal aorta pulse, normal pedal pulses. EDEMA/VARICOSITIES OF EXTREMITIES: No edema or varicosities. LYMPHATICS: No lymphadenopathy in the neck. GASTROINTESTINAL: ABDOMEN: Soft, non-tender, without masses. Bowel sounds active. LIVER/SPLEEN/KIDNEY: No hepatosplenomegaly, tenderness or nodularity. Kidneys not palpable. RECTAL: Rectal exam reveals no masses or hemorrhoids, sphincter tone is normal. GENITOURINARY: PROSTATE: 1+ ENLARGED. MUSCULOSKELETAL EXAM: EXTREMITIES: BILATERAL LOWER: mild swelling knees with scars; slight decrease in ROM SKIN: SKIN: Warm, dry, no diaphoresis, no significant lesions, irritation, rashes or ulcers. No induration, obvious subcutaneous nodules or tightening. PSYCHIATRIC: Judgment appropriate. Oriented. Normal memory. Mood and affect appropriate. HEALTH MAINTENANCE: LAST PROSTATE EXAM: +. INJURY PREVENTION DISCUSSED: d. ADVANCED DIRECTIVES DISCUSSED: d. LAST DATE COLONOSCOPY: 1998. LAST FLU VACCINE:rec LAST TD: 1997 ASSESSMENT/PLAN: 272.4-HYPERLIPIDEMIA ASSESSMENT: No medication is currently being used. Will continue to follow for the need to intervene therapeutically. A low cholesterol diet was encouraged.increase good fat in diet to increase HDL Regular exercise was encouraged. Weight loss was encouraged. Will check laboratory.in 4 months. 401.1-HYPERTENSION ESSENTIAL BENIGN ASSESSMENT: The blood pressure remains satisfactory. Will not change medication, continue to monitor for complications. The patient was encouraged to follow a low salt diet. Regular exercise was encouraged. V76.44-SCREEN FOR CA OF PROSTATE PSA ok 715.96-OSTEOARTHRITIS/DJD KNEE ASSESSMENT: The patient's osteoarthritis has not changed. Will not change medication, continue to monitor for complications. PATIENT EDUCATION: leg lifts with weights; periodic rest periods at work RETURN VISIT: Patient instructed to return in 4 months. Electronically Signed by: Gavin Mcconnell MD on Saturday, May 13, 2006 documented in this encounter Plan of Treatment Upcoming Encounters Date Type Department Care Team (Late st Contact Info) Description 03/13/2025 4:30 PM CDT Telephone Check Up [facility] Oncology and Hematology - [place] [address] [place] [address] [address] [place] [address] Armond Epstein MD [address] [facility] [address] [place] [address] documented as of this encounter Visit Diagnoses Not on filedocumented in this encounter Care Teams Collision Technician Relationship Specialty Start Date End Date Vel Gilliam MD [address] [place] [address] PCP - General Family Practice 02/14/14 documented as of this encounter
--- OUTSIDE RECORDS SUMMARY | 2025-02-20 13:16 | XMS_ITS | Encounter Summary ---
Author Organization [facility] Address [address] [facility] [address] [place] [address] Phone Care Team Providers Care Help Desk Representative Name Role Phone Fina Todd MD Unavailable [phone] Quintin Downey MD Unavailable [phone] Bipin Wetzel MD Unavailable Yancy Romeo MD Unavailable [phone] Maged Hercules MD Unavailable Maged Hercules MD Unavailable Nigel Elizalde MD Unavailable [phone] Issa Sanches MD Unavailable [phone] Miscellaneous, Not In File Unavailable Unava ilable Vel Gilliam MD Primary Care Provider [phone] Reason for Referral * Diagnostic Imaging (Routine) - Pending Review Specialty Diagnoses / Procedures Referred By Contac t Referred To Contact Diagnoses End stage renal disease (HCC) Procedures US Hemodialysis Access Molina Jordan MD [address] [facility] [id number] [place] [address] Phone: tel: fax: [facility] (All Locations) Referral ID Status Reason Start Date Expiration Date V isits Requested Visits Authorized [id number] Pending Review 02/18/2025 03/20/2026 1 1 Encounter Details Date Type Department Care Team (Late st Contact Info) Description 02/18/2025 Orders Only [facility] Surgery [address] [facility] 8[address] [place] [address] [place] [address] Molina Jordan MD [address] [facility] [id number] [place] [address] End stage renal disease (HCC) (Primary Dx) Social History Tobacco Use Types Packs/Day Years Used Date Smoking Tobacco: Every Day Cigarettes 0.7 64.3 Started: 1958 Passive Smoke Exposure: Past Smokeless Tobacco: Never [...] making you feel afraid or unsafe? 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 Gender Identity Male 09/15/2020 1:55 PM EDUCATION OFFICER Sexual Orientation Straight 03/02/2020 6: 25 PM CDT documented as of this encounter Plan of Treatment Scheduled Orders Name Type Priority Associated Diagnoses Orde r Schedule US Hemodialysis Access Imaging Schedule Routine, Read Routine (OP Routine) End stage renal disease (HCC) Expected: 03/04/2025, Expires: 02/18/2026 documented as of this encounter Visit Diagnoses Diagnosis End stage renal disease (HCC)- Primary End stage renal disease documented in this encounter Care Teams Help Desk Representative Relationship Specialty Start Date End Date Vel Gilliam MD [address] [place] [address] PCP - General Family Medicine 11/07/24 Fina Todd MD Entry Level Installation Technician Dermatology 03/05/19 Quintin Downey MD Consulting Physician Nephrology 03/06/19 Bipin Wetzel MD Referring Physician Cardiovascular Disease 04/08/20 Yancy Romeo MD [address] [facility] [address] [place] [address] Referring Physician Rheumatology 04/08/20 Maged Hercules MD [address] [place] [address] Consulting Physician Hematology and Oncology 09/30/20 Maged Hercules MD [address] [place] [address] Medical Oncologist/Hematologis t Hematology and Oncology 09/30/20 Nigel Elizalde MD [address] [place] [address] Consulting Physician Urology 11/29/23 Issa Sanches MD [address] [place] [address] Consulting Physician Cardiology 11/29/23 Miscellaneous, Not In File 12/13/23 documented as of this encounter
--- OUTSIDE RECORDS SUMMARY | 2025-02-20 13:16 | XMS_ITS | Encounter Summary ---
Author Organization [facility] Address [address] [place] [address] Care Team Providers Care Director Of Home Care Hospice Name Role Phone Vel Gilliam MD Primary Care Provider [phone] Encounter Details Date Type Department Care Team (Late st Contact Info) Description 05/12/2006 Outpatient Historical [facility] Family Medicine [place] [address] [facility] [address] [place] [address] [place] [address] 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 Gender Identity Not on file Sexual Orientation Not on file documented as of this encounter Last Filed Vital Signs Vital Sign Reading Time Taken Comments Blood Pressure 130/70 05/12/2006 9:15 AM CDT Pulse 56 05/12/2006 9:15 AM CDT Temperature - - Respiratory Rate - - Oxygen Saturation - - Inhaled Oxygen Concentration - - Weight 90.7 kg (200 lb) 05/12/2006 9:15 AM CDT Height - - Body Mass Index - - documented in this encounter Plan of Treatment Upcoming Encounters Date Type Department Care Team (Late st Contact Info) Description 03/13/2025 4:30 PM CDT Telephone Check Up [facility] Oncology and Hematology - [place] [address] [facility] [address] [place] [address] Armond Epstein MD [address] [facility] [address] [place] [address] documented as of this encounter Visit Diagnoses Not on filedocumented in this encounter Care Teams Director Of Home Care Hospice Relationship Specialty Start Date End Date Vel Gilliam MD [address] [place] [address] PCP - General Family Practice 02/14/14 documented as of this encounter
--- OUTSIDE RECORDS SUMMARY | 2025-02-20 13:16 | XMS_ITS | Encounter Summary ---
Author Organization [facility] Address [address] [place] [address] Care Team Providers Care Dish Carrier Name Role Phone Vel Gilliam MD Primary Care Provider [phone] Encounter Details Date Type Department Care Team (Latest Contact Info) Description 09/14/2006 Outpatient Historical [facility] [place] [address] 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 [address] [place] [address] documented as of this encounter Visit Diagnoses Diagnosis Pain in limb- Primary documented in this encounter Care Teams Dish Carrier Relationship Specialty Start Date End Date Vel Gilliam MD [address] [place] [address] PCP - General Family Practice 02/14/14 documented as of this encounter
--- OUTSIDE RECORDS SUMMARY | 2025-02-20 13:16 | XMS_ITS | Encounter Summary ---
Author Organization [facility] Address [address] [place] [address] Care Team Providers Care Package Drier Name Role Phone Vel Gilliam MD Primary Care Provider [phone] Encounter Details Date Type Department Care Team (Late st Contact Info) Description 12/03/2004 Outpatient Historical [facility] Family Medicine [place] [address] [facility] [address] [place] [address] [place] [address] 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 Gender Identity Not on file Sexual Orientation Not on file documented as of this encounter Last Filed Vital Signs Vital Sign Reading Time Taken Comments Blood Pressure 160/86 12/03/2004 9:45 AM BAIT MAN Pulse 56 12/03/2004 9:45 AM BAIT MAN Temperature - - Respiratory Rate 14 12/03/2004 9:45 AM BAIT MAN Oxygen Saturation - - Inhaled Oxygen Concentration - - Weight 87.7 kg (193 lb 5 oz) 12/03/2004 9:45 AM BAIT MAN Height - - Body Mass Index - - documented in this encounter Plan of Treatment Upcoming Encounters Date Type Department Care Team (Late st Contact Info) Description 03/13/2025 4:30 PM CDT Telephone Check Up [facility] Oncology and Hematology - [place] [address] [facility] [address] [place] [address] Armond Epstein MD [address] [facility] [address] [place] [address] documented as of this encounter Visit Diagnoses Not on filedocumented in this encounter Care Teams Package Drier Relationship Specialty Start Date End Date Vel Gilliam MD [address] [place] [address] PCP - General Family Practice 02/14/14 documented as of this encounter
--- OUTSIDE RECORDS SUMMARY | 2025-02-20 13:16 | XMS_ITS | Encounter Summary ---
Author Organization [facility] Address [address] [place] [address] Care Team Providers Care Alliance Director Name Role Phone Vel Gilliam MD Primary Care Provider [phone] Encounter Details Date Type Department Care Team (Late Contact Info) Description 07/25/2003 Outpatient Historical [facility] Family Medicine [place] [address] [facility] [address] [place] [address] [place] [address] 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 Gender Identity Not on file Sexual Orientation Not on file documented as of this encounter Plan of Treatment Upcoming Encounters Date Type Department Care Team (Late st Contact Info) Description 03/13/2025 4:30 PM CDT Telephone Check Up [facility] Oncology and Hematology - [place] [address] [facility] [address] [place] [address] Armond Epstein MD [address] [facility] [address] [place] [address] documented as of this encounter Visit Diagnoses Not on filedocumented in this encounter Care Teams Alliance Director Relationship Specialty Start Date End Date Vel Gilliam MD [address] [place] [address] PCP - General Family Practice 02/14/14 documented as of this encounter
--- OUTSIDE RECORDS SUMMARY | 2025-02-20 13:16 | XMS_ITS | Encounter Summary ---
Author Organization [facility] Address [address] [place] [address] Care Team Providers Care Switchboard And Control Room Operator Name Role Phone Vel Gilliam MD Primary Care Provider [phone] Encounter Details Date Type Department Care Team (Late Contact Info) Description 07/25/2003 Outpatient Historical [facility] Family Medicine [place] [address] [facility] [address] [place] [address] [place] [address] [facility] [place] [address] Social History Tobacco Use Types Packs/Day Years Used Date Smoking Tobacco: Never Assessed Sex and Gender Information Value Date Recorded Sex Assigned at Not on file Legal Sex Male 4:23 AM RN PROCEDURES Gender Identity Not on file Sexual Orientation Not on file documented as of this encounter Plan of Treatment Upcoming Encounters Date Type Department Care Team (Late st Contact Info) Description 03/13/2025 4:30 PM CDT Telephone Check Up [facility] Oncology and Hematology - [place] [address] [facility] [address] [place] [address] Armond Epstein MD [address] [facility] [address] [place] [address] documented as of this encounter Visit Diagnoses Not on filedocumented in this encounter Care Teams Switchboard And Control Room Operator Relationship Specialty Start Date End Date Vel Gilliam MD [address] [place] [address] PCP - General Family Practice 02/14/14 documented as of this encounter
--- OUTSIDE RECORDS SUMMARY | 2025-02-20 13:16 | XMS_ITS | Continuity of Care Document ---
Author Organization [facility] Address [address] [facility] [address] [place] [address] Phone Care Team Providers Care Accounting Policy Consultant Name Role Phone Kt Martínez MD Unavailable Unavailabl e Allergies, Adverse Reactions, Alerts Substance Reaction Status Criticality No Known Allergies Active No Inform ation Medications Medication Instructions Dosage Effective Dates (start - stop) Status Comments famotidine 40 mg tablet - Active metoprolol tartrate 50 mg tablet - Active irbesartan 150 mg tablet take 1 tablet b y oral route every day 150 MG - Active simvastatin 10 mg tablet take 1 tablet b y oral route every day in the evening 10 MG - Active alprazolam 0.25 mg tablet take 1 tablet by oral route 3 times every day 0.25 MG - Active gabapentin 600 mg tablet take 1 tablet b y oral route 3 times every day 600 MG - Active HYDROXYCHLOROQUINE SULFATE (unknown strength) Not Available - Active AMLODIPINE BESYLATE (unknown strength) Not Available - Active Procedures Procedure Date OFFICE/OUTPATIENT VISIT EST OFFICE/OUTPATIENT VISIT EST OFFICE/OUTPATIENT VISIT EST OFFICE/OUTPATIENT VISIT EST OFFICE/OUTPATIENT VISIT EST OFFICE/OUTPATIENT VISIT EST RADEX KNE 3 VIEWS RADEX KNE 3 VIEWS OFFICE/OUTPATIENT VISIT EST OFFICE/OUTPATIENT VISIT EST RADEX KNE 3 VIEWS OFFICE/OUTPATIENT VISIT EST OFFICE/OUTPATIENT VISIT EST RADEX KNE 3 VIEWS OFFICE/OUTPATIENT VISIT EST OFFICE/OUTPATIENT VISIT EST OFFICE/OUTPATIENT VISIT EST OFFICE/OUTPATIENT VISIT EST OFFICE/OUTPATIENT VISIT EST RADEX HIP UNI COMPL MINIMUM 2 VIEWS RADEX KNE 3 VIEWS OFFICE/OUTPATIENT VISIT EST OFFICE/OUTPATIENT VISIT EST OFFICE/OUTPATIENT VISIT EST OFFICE/OUTPATIENT VISIT EST OFFICE/OUTPATIENT VISIT EST OFFICE/OUTPATIENT VISIT EST OFFICE CONSULTATION OFFICE/OUTPATIENT VISIT NEW OFFICE/OUTPATIENT VISIT EST MU Reporting OFFICE/OUTPATIENT VISIT EST MU Reporting Advance Directives Directive Yes / No Effective Date File Name No Information Encounters Encounter Description Practice Location Reason(s) For Visit Diagnoses Date Provider Providers Copied on Encounter OFFICE/OUTPAT IENT VISIT EST [facility] , [address], [address], tel:[phone] [facility] History of revision of total replacement of left knee joint 2 L'Hommedieu [place]field. [address] [place], [place], [address]. tel:[phone] Specialist: [address], [place], [address]. tel:[phone] Provider: Vel Aguiar, [address] , [place], [address]. tel:[phone] OFFICE/OUTPAT IENT VISIT EST [facility] , [address] [facility] [address], [place], [address], [place] tel:[phone] [facility] History of revision of total replacement of left knee jointContusi on of left knee, subsequent encounter 1 L'Hommedieu [place]field. [address] [facility] , [place], [place], [id number]. tel:[phone] Specialist: [address], [place], [address]. tel:[phone] Provider: Vel Aguiar, [address], [place], [address]. tel:[phone] OFFICE/OUTPAT IENT VISIT EST [facility] , [address] [facility] [address], [place], [address], [place] tel:[phone] [facility] Body mass index [BMI] 29.0-29.9, adultHistory of revision of total replacement of left knee jointContusi on of left knee, initial encounter - 1 Armaan'Douglas Meraz. [address] [facility], [place], [place], [address]. tel:[phone] Specialist: [address], [place], [address]. tel:[phone] Provider: Darci De Anda, [address], [place], [address]. tel:[phone] OFFICE/OUTPAT IENT VISIT EST [facility] , [address] [facility] [address], [place], [address], [place] tel:[phone] [facility] Lumbago with sciatica, left sideLumbago with sciatica, right sideSpinal stenosis, lumbar region without neurogenic claudication -201 9 [facility]. [address] [place], [place], [address]. tel:[phone] Specialist: [address], [place], [address]. tel:[phone] Provider: Vel Aguiar, [address], [place], [address]. tel:[phone] OFFICE/OUTPAT IENT VISIT EST [facility], [address] [facility] [address], [place], [address], [place] tel:[phone] [facility] Lumbago with sciatica, right sideSpinal stenosis of lumbar region with neurogenic claudication Lumbago with sciatica, left side Apr-0 9-201 9 Liang Smiley. [address] [place], [place], [address]. tel:[phone] Specialist: [address], [place], [address]. tel:[phone] ng Provider: Katelin Zap[address], [place], [address]. tel:[phone] OFFICE/OUTPAT IENT VISIT [facility], [address] [facility] [address], [place], [address], [place] tel:[phone] [facility] Body mass index (BMI) 29.0-29.9, adultEssenti al (primary) hypertension History of total left knee replacementA cquired unequal limb length of left femurAfterca re following left knee joint replacement surgery Nov- 9 Yulissa Falcon. [address] [facility] [address], [place], [place], [address]. tel:[phone] Referring Provider: Lynsey Bell [address], [place], [address]. tel:[phone] OFFICE/OUTPAT IENT VISIT [facility] , [address] [place] [address], [address], [place] tel:[phone] [facility] Status post total left knee replacementS tatus post total right knee replacement Sep-2 7 Driss Garcia. [address] [place], [place], [address]. tel:[phone] OFFICE/OUTPAT IENT VISIT [facility], [address] [facility] [address], [place], [address], [place] tel:[phone] [facility] Body mass index (BMI) 29.0-29.9, adultSpinal stenosis of lumbar regionLumbag o with sciatica, right side Sep-0 5-201 7 Liang Smiley. [address] [place], [place], [address]. tel:[phone] Specialist: Donnell Marshall, [address] [place], [address]. tel:[phone] OFFICE/OUTPAT IENT VISIT EST [facility] , [address] [place] [address], [address], [place] tel:[phone] [facility] Status post total left knee replacement 6 Driss Garcia. [address] [place], [place], [address]. tel:[phone] OFFICE/OUTPAT IENT VISIT EST [facility] , [address] [place] [address], [place], [address], [place] tel:[phone] [facility] Pain due to total left knee replacement, subsequent encounter 6 Driss Garcia. [address] [facility], [place], [place], [address]. tel:[phone] OFFICE/OUTPAT IENT VISIT EST [facility] , [address] [place] [address], [place], [address], [place] tel:[phone] [facility] Status post total left knee replacementP ain due to total left knee replacement, initial encounter 6 Driss Garcia. [address] [place], [place], [address]. tel:[phone] OFFICE/OUTPAT IENT VISIT EST [facility], [address] [facility] [address], [place], [address], [place] tel:[phone] [facility] Pain, chronic postoperativ ePrimary osteoarthrit is of left knee 6 Liang Smiley. [address] [place], [place], [address]. tel:[phone] Specialist: Donnell Marshall, [address] [place], [address]. tel:[phone] OFFICE/OUTPAT IENT VISIT EST [facility], [address] [place] [address], [address], [place] tel:[phone] [facility] Pain, chronic postoperativ eLeft knee pain 6 Liang Baljit. [address] [place], [place], [address]. tel:[phone] Specialist: Donnell Marshall, [address] [place] [address], [address]. tel:[phone] [facility], [address] [place] [address], [address], [place] tel:[phone] [facility] Pain, chronic postoperativ ePrimary osteoarthrit is of left knee 5 Liang Baljit. [address] [place] [address], [address]. tel:[phone] Specialist: Donnell Marshall, [address] [place] [address], [address]. tel:[phone] [facility], [address] [place] [address], [address], [place] tel:[phone] [facility] Left knee pain 5 Liang Baljit. [address] [place], [place], [address]. tel:[phone] [facility], [address] [place] [address], [address], [place] tel:[phone] [facility] Pain, chronic postoperativ ePrimary osteoarthrit is of left knee 5 Liang Baljit. [address] [place], [place], [address]. tel:[phone] Specialist: Donnell Marshall, [address] [place] [address], [address]. tel:[phone] [facility], [address] [place], [place] [address], [place], [address], [place] tel:[phone] [facility] Left knee painPain, chronic postoperativ e - 5 Liang Smiley. [address] [place], [place], [address]. tel:[phone] Specialist: Donnell Marshall, [address] [place] [address], [address]. tel:[phone] OFFICE/OUTPAT IENT VISIT EST [facility], [address] [place] [address], [place], [address], [place] tel:[phone] [facility] Spinal stenosis of lumbar regionBilate ral low back pain without sciaticaRigh t knee painLeft knee painPain, chronic postoperativ e 0- 5 Liang Smiley. [address] [place] [address], [address]. tel:[phone] Specialist: Donnell Marshall, [address] [place] [address], [address]. tel:[phone] Provider: Baljit Tavera, [address] [place] [address], [address]. tel:[phone] OFFICE/OUTPAT IENT VISIT EST [facility], [address] [place] [address], [place], [address], [place] tel:[phone] [facility] Lumbago with sciatica, left sideLumbago with sciatica, right sideSpinal stenosis of lumbar region 5 Liang Smiley. [address] [place] [address], [id number]. tel:[phone] Specialist: Donnell Marshall, [address] [place] [address], [address]. tel:[phone] OFFICE/OUTPAT IENT VISIT EST [facility] , [address] [facility] [address], [place], [address], [place] tel:[phone] [facility] Left knee painRight hip painStatus post total right knee replacementS tatus post total left knee replacement 5 Driss Garcia. [address] [facility], [place], [place], [address]. tel:[phone] OFFICE/OUTPAT IENT VISIT EST [facility], [address] [place] [address], [address], [place] tel:[phone] [facility] Displacement of lumbar intervertebr al discSpinal stenosis of lumbar region 5 Liang Smiley. [address] [place], [place], [address]. tel:[phone] Specialist: Donnell Marshall, [address] [place] [address], [address]. tel:[phone] OFFICE/OUTPAT IENT VISIT EST [facility] , [address], [address], [place] tel:[phone] [facility] Other complication s due to internal joint prosthesisAf tercare following joint replacement 5 Driss Garcia. [address] [facility], [place], [place], [address]. tel:[phone] [facility] , [address], [address], [place] tel:[phone] [facility] Aftercare following joint replacement 5 Kathrine Herrera. [address] [facility] [address] [place] [address], [id number]. tel:[phone] OFFICE/OUTPAT IENT VISIT EST [facility], [address] [place] [address], [address], [place] tel:[phone] [facility] BACK PAIN (chief complaint) LumbagoSpina l stenosis of lumbar regionSciati caOverweight 5 Liang Smiley. [address] [place], [place], [address]. tel:[phone] Specialist: Donnell Marshall, [address] [place] [address], [address]. tel:[phone] OFFICE/OUTPAT IENT VISIT [facility], [address] [place] [address], [address], [place] tel:[phone] [facility] BACK FOLLOW UP (chief complaint) Spinal stenosis of lumbar regionLumbag oLumbosacral spondylosisD isplacement of lumbar intervertebr al disc Feb-0 2-201 5 Primitivo Jyoti. [address] [place] [address], [place], [place], [address]. tel:[phone] Specialist: Donnell Marshall, [address] [place] [address], [address]. tel:[phone] OFFICE/OUTPAT IENT VISIT [facility], [address] [place] [address], [address], [place] tel:[phone] [facility] Follow Up of 1mo for low back pain. PT not helping (chief complaint) LumbagoLumbo sacral spondylosisD isplacement of lumbar intervertebr al discSpinal stenosis of lumbar region Nakul-0 5-201 5 Liang Baljit. [address] [place] [address], [id number]. tel:[phone] Specialist: Donnell Marshall, [address] [place] [address], [address]. tel:[phone] OFFICE CONSULTATION [facility], [address] [place] [address], [address], [place] tel:[phone] [facility] LOW BACK PAIN (chief complaint) LumbagoLumbo sacral spondylosis Dec-0 8-201 4 Liang Baljit. [address] [place] [address], [address]. tel:[phone] Referring Provider: Donnell Antunez, [address] [place] [address], [address]. tel:[phone] [facility], [address] [place] [address], [address], [place] tel:[phone] [facility] lumbar spine (chief complaint) Spondylolist hesis of lumbar region 4 Curylo Donnell. [address] [place], [place], [address]. tel:[phone] Referring Provider: Donnell Antunez, [address] [place], [address]. tel:[phone] OFFICE/OUTPAT IENT VISIT [facility], [address] [place] [address], [address], [place] tel:[phone] [facility] lumbar spine (chief complaint) lumbar spine (chief complaint) Spondylolist hesis of lumbar regionLumbag o 4 Curylo Donnell. [address] [place], [place], [address]. tel:[phone] Referring Provider: Vel Aguiar, [address], [place], [address]. tel:[phone] OFFICE/OUTPAT IENT VISIT EST [facility] , [address], [address], [place] tel:[phone] [facility] following joint replacement Sep-0 8-201 4 Driss Garcia. [address] [place], [place], [address]. tel:[phone] Referring Provider: Vel Aguiar, [address], [place], [address]. tel:[phone] OFFICE/OUTPAT IENT VISIT EST [facility] , [address] [facility] [address], [place], [address], [place] tel:[phone] [facility] following joint replacement Sep-0 9-201 3 Driss Garcia. [address] [facility], [place], [place], [address]. tel:[phone] Referring Provider: Vel Aguiar, [address], [place], [address]. tel:[phone] [facility] , [address] [facility] [address], [place], [address], tel:[phone] [facility] Aftercare following joint replacementP atellar tendinitis 2 Kathrine Herrera. [address] [facility] [address], [place], [place], [address]. tel:[phone] Referring Provider: Gavin Larsen, [address] [facility], [place], [address]. tel:[phone] Family History Family Member Type Diagnosis Age At Onset Brother Problem (finding) Cancer, unknown Sister Problem (finding) malignant melanoma Mother Problem (finding) Liver disease Father Problem (finding) Heart disease Father Problem (finding) Father Problem (finding) Father Problem (finding) Father Problem (finding) coronary arterioscleros is Father Problem (finding) coronary arterioscleros is Immunizations Vaccine Date Status Comments Flu (split) (3 yrs or older) administered Source: Other Provider Pneumo (2 yrs or older)(PPV) administered Source: Other Provider Payers Payer name Insurance type Covered constitution party ID Authoriza tival(s) [employer] OT [id number] Social History Type Description Quantity Date Captured Comments Alcohol Use Details Unknown Caffeine Use Details Unknown Tobacco Use Status Smoking Status No Information Sex Male Chief Complaint And Reason For Visit No Information Reason For Referral Reason For Referral No Information Plan Of Treatment Date Type Action Status Goal Tobacco cessation counseling completed Referral Ordered: RADEX KNE COMPL 4/MORE VIEWS LT ordered Referral Ordered: RADEX KNE 3 VIEWS RT ordered Referral Ordered: INJECTION TREATMENT OF NERVE LT knee ordered Referral Ordered: RADEX HIP UNI COMPL MINIMUM 2 VIEWS RT ordered Referral Ordered: MRI SPI CANAL&CNTS LMBR C-MATRL spine, lumbar Appointment date/timeframe: 09/13/2014 ordered Referral Ordered: RADEX SPI LUMBOSAC COMPL W/BENDING VIEWS ordered Referral Ordered: MRI SPI CANAL&CNTS LMBR C-MATRL ordered Referral Ordered: RADEX KNE 3 VIEWS LT ordered Nutrition Recommendation Nutrition / feed ing management completed History Of Present Illness Encounter Date Complaint History Of Prese nt Illness BACK PAIN BACK FOLLOW UP Follow Up of 1mo for low back pain. PT not helping LOW BACK PAIN lumbar spine lumbar spine Functional Status Date Functional Assessmen t No Information Instructions Date Instruction Additional Infor mation Giving encouragement to exercise Related to Body mass index [BMI] 29.0-29.9, adult Activity as tolerated. Related t o Primary osteoarthritis of left knee Take medication as prescribed. R elated to Primary osteoarthritis of left knee Giving encouragement to exercise Related to Body mass index (BMI) 29.0-29.9, adult Exercise promotion: stretching R elated to High BP Call for increase in pain Relate d to Status post total left knee replacement Giving encouragement to exercise Related to Body mass index (BMI) 29.0-29.9, adult Weight bearing status as directe d. Related to Aftercare following joint replacement Rest, ice and elevate. Related t o Aftercare following joint replacement Giving encouragement to exercise Related to Overweight Giving encouragement to exercise Related to Overweight Activity as tolerated. Related t o Lumbago Avoid prolonged bed rest. Relate d to Lumbago Take medication as prescribed. R elated to Lumbago Assessments Type Assessment Date assessment History of revision of total rep lacement of left knee joint Patient Care Teams Name Effective Dates (start - stop) Status Members No Information
--- OUTSIDE RECORDS SUMMARY | 2025-02-20 13:16 | XMS_ITS | Encounter Summary ---
Author Organization [facility] Address [address] [place] [address] Care Team Providers Care Ct Technologist Name Role Phone Vel Gilliam MD Primary Care Provider [phone] Encounter Details Date Type Department Care Team (Late st Contact Info) Description 09/12/2007 Orders Only [facility] [place] [facility] [place] [address] [facility] [address] [place] [address] [place] [address] [address] 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 BLOOD PRESSURE: 136/74. Right Arm Sitting PULSE: 80. Right Radial, Regular ALLERGIES: Allergies are as listed. TOBACCO USE: Patient does not currently use tobacco. CHIEF COMPLAINT Here for follow up evaluation.[email or web address] HISTORY: HISTORY: 272.4-HYPERLIPIDEMIA The patient's most recent LDL is at goal, most recent HDL is not at goal. 401.1-HYPERTENSION ESSENTIAL BENIGN The patient denies chest pain, shortness of breath, dyspnea on exertion, pedal edema, or headache. 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 No major weight gain or loss. No malaise, chills, fever, diaphoresis.. ENT: WATERY NASAL DISCHARGE PRESENT. ENDOCRINE: No heat or cold intolerance, no [...] MARITAL STATUS: m TOBACCO USE: DISCUSSED SMOKING: ns. ALCOHOL: DISCUSSED ALCOHOL: 0. EXERCISES: The patient exercises daily. The exercise is predominantly walking. DIET: Follows a general low saturated fat diet, no added salt. PHYSICAL EXAMINATION: CONSTITUTIONAL: GENERAL APPEARANCE: Healthy appearing patient in no distress. EYES: CONJUNCTIVAE/LIDS: Conjunctivae and lids appear normal. EARS, NOSE, MOUTH AND THROAT: EARS: Tympanic membranes shiny without retraction. Canals unremarkable. Hearing grossly normal. NOSE (AND SINUS): No abnormality of the nose or sinuses is noted. ORAL: Inspection of gums, lips, palate, and teeth normal. No scars, lesions, or masses. Oral mucosaunremarkable with non-inflamed posterior pharynx. NECK/THYROID: Trachea midline. No thyroid enlargement, tenderness, or mass. No supraclavicular or cervical adenopathy. RESPIRATORY: Clear to auscultation and percussion. Normal respiratory effort. CARDIOVASCULAR: CARDIAC: Rhythm regular, GRADE I/ SYSTOLIC MURMUR. ARTERIAL: No aortic bruits. EDEMA/VARICOSITIES OF EXTREMITIES: No edema or varicosities. LYMPHATICS: No lymphadenopathy in the neck. GASTROINTESTINAL: ABDOMEN: Soft, non-tender, without masses. Bowel sounds active. LIVER/SPLEEN/KIDNEY: No hepatosplenomegaly, tenderness or nodularity. Kidneys not palpable. GENITOURINARY: BLADDER: Without fullness, masses or tenderness. MUSCULOSKELETAL EXAM: EXTREMITIES: BILATERAL LOWER: surgical scars SKIN: SKIN: Warm, dry, no diaphoresis, no significant lesions, irritation, rashes or ulcers. No induration, obvious subcutaneous nodules or tightening. PSYCHIATRIC: Judgment appropriate. Oriented. Normal memory. Mood and affect appropriate. REPEAT VITAL SIGNS: BLOOD PRESSURE: 142/68. Right Arm Sitting HEALTH MAINTENANCE: LAST PROSTATE EXAM: 10/30. PROSTATE EXAM PROVIDER: urology. INJURY PREVENTION DISCUSSED: d. DIET AND EXERCISE DISCUSSED: d. ADVANCED DIRECTIVES DISCUSSED: d. LAST DATE COLONOSCOPY: 1998. LAST FLU VACCINE:2006 LAST TD: 1997 LAST PNEUMOCOCCAL:2002 ASSESSMENT/PLAN: 272.4-HYPERLIPIDEMIA ASSESSMENT: A low cholesterol diet was encouraged. The patient's most recent labs reviewed. Regularexercise was encouraged. LAB ORDERS: Order number: [id number] Test Ordered: LIPID PANEL 7600 401.1-HYPERTENSION ESSENTIAL BENIGN ASSESSMENT: The blood pressure remains satisfactory. Will not change medication, continue to monitor for complications. The patient was encouraged to follow a low salt diet. 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 FU urology 715.96-OSTEOARTHRITIS/DJD KNEE STATUS: Improved. 785.2-CARDIAC MURMURS (UNDIAGNOSED) STATUS: Unchanged. V70.0-ROUTINE GENERAL MEDICAL EXAMINATION 472.0-RHINITIS, CHRONIC STATUS: Unchanged. MEDICATIONS: FLUTICASONE PROPIONATE NASAL SUSPENSION 50 MCG/ACT, 2 sprays to each nostril daily for runny nose, 1 Dispensed, 5 Fills, status: NEW PRESCRIPTION, 09/12/2007. RETURN VISIT: Patient instructed to return in 6 months. Electronically Signed by: Gavin Mcconnell MD on August documented in this encounter Plan of Treatment Upcoming Encounters Date Type Department Care Team (Late st Contact Info) Description 03/13/2025 4:30 PM CDT Telephone Check Up [facility] [place] [facility] - [place] [address] [place] [address] Armond Epstein MD [address] [facility] [address] [place] [address] documented as of this encounter Visit Diagnoses Not on filedocumented in this encounter Care Teams Ct Technologist Relationship Specialty Start Date End Date Vel Gilliam MD [address] [place] [address] PCP - General Family Practice 02/14/14 documented as of this encounter
--- OUTSIDE RECORDS SUMMARY | 2025-02-20 13:16 | XMS_ITS | Encounter Summary ---
Author Organization [facility] Address [address] [place] [address] Care Team Providers Care Operational Meteorologist Name Role Phone Vel Gilliam MD Primary Care Provider [phone] Encounter Details Date Type Department Care Team (Late Contact Info) Description 03/07/2008 Outpatient Historical [facility] Family Medicine [place] [address] [facility] [address] [place] [address] [place] [address] 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 Gender Identity Not on file Sexual Orientation Not on file documented as of this encounter Plan of Treatment Upcoming Encounters Date Type Department Care Team (Late st Contact Info) Description 03/13/2025 4:30 PM CDT Telephone Check Up [facility] Oncology and Hematology - [place] [address] [facility] [address] [place] [address] Armond Epstein MD [address] [facility] [address] [place] [address] documented as of this encounter Visit Diagnoses Not on filedocumented in this encounter Care Teams Operational Meteorologist Relationship Specialty Start Date End Date Vel Gilliam MD [address] [place] [address] PCP - General Family Practice 02/14/14 documented as of this encounter
--- OUTSIDE RECORDS SUMMARY | 2025-02-20 13:16 | XMS_ITS | Encounter Summary ---
Author Organization [facility] Address 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 Gender Identity Not on file Sexual Orientation Not on file documented as of this encounter Last Filed Vital Signs Vital Sign Reading Time Taken Comments Blood Pressure 140/74 09/08/2006 3:10 PM STEAM SHOVEL RUNNER Pulse 56 09/08/2006 3:10 PM STEAM SHOVEL RUNNER Temperature - - Respiratory Rate - - Oxygen Saturation - - Inhaled Oxygen Concentration - - Weight 92.3 kg (203 lb 8 oz) 09/08/2006 3:10 PM STEAM SHOVEL RUNNER Height - - Body Mass Index - - documented in this encounter Plan of Treatment Upcoming Encounters Date Type Department Care Team (Late st Contact Info) Description 03/13/2025 4:30 PM CDT Telephone Check Up [facility] Oncology and Hematology - [place] [address] [facility] [address] [place] [address] Armond Epstein MD [address] [facility] [address] [place] [address] documented as of this encounter Visit Diagnoses Not on filedocumented in this encounter Care Teams Inspector Bullet Slugs Relationship Specialty Start Date End Date Vel Gilliam MD [address] [place] [address] PCP - General Family Practice 02/14/14 documented as of this encounter
--- OUTSIDE RECORDS SUMMARY | 2025-02-20 13:16 | XMS_ITS | Encounter Summary ---
Author Organization [facility] Address [address] [place] [address] Care Team Providers Care Triage Specialist Name Role Phone Vel Gilliam MD Primary Care Provider [phone] Encounter Details Date Type Department Care Team (Late st Contact Info) Description 02/10/2006 Outpatient Historical [facility] Family Medicine [place] [address] [facility] [address] [place] [address] [place] [address] [facility] [place] [address] Social History Tobacco Use Types Packs/Day Years Used Date Smoking Tobacco: Never Assessed Sex and Gender Information Value Date Recorded Sex Assigned at Not on file Legal Sex Male 4:[address] Gender Identity Not on file Sexual Orientation Not on file documented as of this encounter Last Filed Vital Signs Vital Sign Reading Time Taken Comments Blood Pressure 146/60 02/10/2006 9:00 AM CDT Pulse 50 02/10/2006 9:00 AM CDT Temperature - - Respiratory Rate - - Oxygen Saturation - - Inhaled Oxygen Concentration - - Weight 93.7 kg (206 lb 8 oz) 02/10/2006 9:00 AM CDT Height - - Body Mass Index - - documented in this encounter Plan of Treatment Upcoming Encounters Date Type Department Care Team (Late st Contact Info) Description 03/13/2025 4:30 PM CDT Telephone Check Up [facility] Oncology and Hematology - [place] [address] [facility] [address] [place] [address] Armond Epstein MD [address] [facility] [address] [place] [address] documented as of this encounter Visit Diagnoses Not on filedocumented in this encounter Care Teams Triage Specialist Relationship Specialty Start Date End Date Vel Gilliam MD [address] [place] [address] PCP - General Family Practice 02/14/14 documented as of this encounter
--- OUTSIDE RECORDS SUMMARY | 2025-02-20 13:16 | XMS_ITS | Encounter Summary ---
Author Organization [facility] Address [address] [place] [address] Care Team Providers Care Senior Oracle Pl Sql Developer Name Role Phone Vel Gilliam MD Primary Care Provider [phone] Encounter Details Date Type Department Care Team (Latest Contact Info) Description 08/04/2005 Outpatient Historical [facility] [place] [address] [facility] [place] [address] UNDIAGNOSED CARDIAC MURMURS (Primary Dx) Social History Tobacco Use Types Packs/Day Years Used Date Smoking Tobacco: Never Assessed Sex and Gender Information Value Date Recorded Sex Assigned at Not on file Legal Sex Male 4:23 AM CLINICAL STAFF RN Gender Identity Not on file Sexual Orientation Not on file documented as of this encounter Plan of Treatment Upcoming Encounters Date Type Department Care Team (Late st Contact Info) Description 03/13/2025 4:30 PM CDT Telephone Check Up [facility] Oncology and Hematology - [place] [address] [facility] [address] [place] [address] Armond Epstein MD [address] [facility] [address] [place] [address] documented as of this encounter Visit Diagnoses Diagnosis Undiagnosed cardiac murmurs- Primary documented in this encounter Care Teams Senior Oracle Pl Sql Developer Relationship Specialty Start Date End Date Vel Gilliam MD [address] [place] [address] PCP - General Family Practice 02/14/14 documented as of this encounter
--- OUTSIDE RECORDS SUMMARY | 2025-02-20 13:16 | XMS_ITS | Encounter Summary ---
Author Organization [facility] Address [address] [place] [address] Care Team Providers Care Turpentine Distiller Name Role Phone Vel Gilliam MD Primary Care Provider [phone] Encounter Details Date Type Department Care Team (Late st Contact Info) Description 07/29/2005 Outpatient Historical [facility] Family Medicine [place] [address] [facility] [address] [place] [address] [place] [address] 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 Gender Identity Not on file Sexual Orientation Not on file documented as of this encounter Last Filed Vital Signs Vital Sign Reading Time Taken Comments Blood Pressure 150/70 07/29/2005 8:00 AM CDT Pulse 64 07/29/2005 8:00 AM CDT Temperature - - Respiratory Rate 16 07/29/2005 8:00 AM CDT Oxygen Saturation - - Inhaled Oxygen Concentration - - Weight 91.2 kg (201 lb) 07/29/2005 8:00 AM CDT Height - - Body Mass Index - - documented in this encounter Plan of Treatment Upcoming Encounters Date Type Department Care Team (Late st Contact Info) Description 03/13/2025 4:30 PM CDT Telephone Check Up [facility] Oncology and Hematology - [place] [address] [place] [address] Armond Epstein MD [address] [facility] [address] [place] [address] documented as of this encounter Visit Diagnoses Not on filedocumented in this encounter Care Teams Turpentine Distiller Relationship Specialty Start Date End Date Vel Gilliam MD [address] [place] [address] PCP - General Family Practice 02/14/14 documented as of this encounter
--- OUTSIDE RECORDS SUMMARY | 2025-02-20 13:16 | XMS_ITS | Encounter Summary ---
Author Organization [facility] Address [address] [place] [address] Care Team Providers Care Resident Care Coordinator Name Role Phone Vel Gilliam MD Primary Care Provider [phone] Encounter Details Date Type Department Care Team (Late Contact Info) Description 03/07/2008 Outpatient Historical [facility] Family Medicine [place] [address] [facility] [address] [place] [address] [place] [address] 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 Gender Identity Not on file Sexual Orientation Not on file documented as of this encounter Plan of Treatment Upcoming Encounters Date Type Department Care Team (Late st Contact Info) Description 03/13/2025 4:30 PM CDT Telephone Check Up [facility] Oncology and Hematology - [place] [address] [place] [address] Armond Epstein MD [address] [facility] [address] [place] [address] documented as of this encounter Visit Diagnoses Not on filedocumented in this encounter Care Teams Resident Care Coordinator Relationship Specialty Start Date End Date Vel Gilliam MD [address] [place] [address] PCP - General Family Practice 02/14/14 documented as of this encounter
--- OUTSIDE RECORDS SUMMARY | 2025-02-20 13:16 | XMS_ITS | Clinical Summary ---
Author Organization [facility] Address [address] [address] Phone Care Team Providers Care Laundry Tub Maker Name Role Phone Javon Viveros DO Unavailable [phone] Lynsey Nur MD Primary Care Provider [phone] Medications polyethylene glycol (MIRALAX) Powder Mix the entire bottle with 64 oz of a clear liquid. Use as directed by the office for colonoscopy prep. 255 g 0 6 Active Immunizations Immunization Administration Dates Next Due Covid-19, Mrna, Lnp-s, PF, 1 00 mcg/0.5 mL Dose (Moderna) 01/03/2021,12/06/2020 Social History Tobacco Use Types Packs/Day Years Used Date Smoking Tobacco: Never Assessed Sex and Gender Information Value Date Recorded Sex Assigned at Not on file Legal Sex Male 3:44 PM CDT Gender Identity Not on file Sexual Orientation Not on file Plan of Treatment Health Maintenance Due Date Last Done Comments Hepatitis C Virus (HCV) Screening 1942 TdaP Immunization 1942 Pneumococcal Immunization (50+ years) (1 of 1 - PCV) 1992 Zoster Immunization (1 of 2) 1992 Respiratory Syncytial Virus (RSV) Immunization (Adult) (1 - 1-dose 75+ series) 2017 Influenza Immunization (#1) 2024 09/0 11/2019, 11/07/2015, 09/10/2014, Additional history exists SARS-COV-2 Immunization ( - 2024-25 season) 2024 02/24/2022, 08/25/2021, 01/03/2021, Additional history exists DTaP/Tdap/Td Immunization Discontinued 08/29/2008, 10/1997 Hepatitis B Immunization Aged Out No longer eligible based on patient's age to complete this topic Meningococcal Immunization (ACWY) Aged Out No longer eligible based on patient's age to complete this topic Rotavirus Immunization Aged Out No lo nger eligible based on patient's age to complete this [place] [address] MEDICARE C ESSENCE Care Teams Laundry Tub Maker Relationship Specialty Start Date End Date Lynsey Nur MD [address] [facility] [address] [place] [address] PCP - General Family Medicine 12/06/20 Javon Viveros DO Gastroenterology 05/12/16
--- OUTSIDE RECORDS SUMMARY | 2025-02-20 13:16 | XMS_ITS | Encounter Summary ---
Author Organization [facility] Address [address] [place] [address] Care Team Providers Care [place]. Representative Name Role Phone Vel Gilliam MD Primary Care Provider [phone] Encounter Details Date Type Department Care Team (Late st Contact Info) Description 08/26/2004 Outpatient Historical [facility] [place] [address] [facility] [address] [place] [address] [place] [address] 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 Gender Identity Not on file Sexual Orientation Not on file documented as of this encounter Last Filed Vital Signs Vital Sign Reading Time Taken Comments Blood Pressure 162/70 08/26/2004 2:30 PM CYCLE MANAGER Pulse 52 08/26/2004 2:30 PM CYCLE MANAGER Temperature 36.4 C (97.5 F) 08/26/2004 2:30 PM CYCLE MANAGER Respiratory Rate 16 08/26/2004 2:30 PM CYCLE MANAGER Oxygen Saturation - - Inhaled Oxygen Concentration - - Weight 89.4 kg (197 lb) 08/26/2004 2:30 PM CYCLE MANAGER Height - - Body Mass Index - - documented in this encounter Plan of Treatment Upcoming Encounters Date Type Department Care Team (Late st Contact Info) Description 03/13/2025 4:30 PM CDT Telephone Check Up [facility] Oncology and Hematology - [place] [address] [facility] [address] [place] [address] Armond Epstein MD [address] [facility] [address] [place] [address] documented as of this encounter Visit Diagnoses Not on filedocumented in this encounter Care Teams U.[place]. Representative Relationship Specialty Start Date End Date Vel Gilliam MD [address] [place] [address] PCP - General Family Practice 02/14/14 documented as of this encounter
--- OUTSIDE RECORDS SUMMARY | 2025-02-20 13:16 | XMS_ITS | Encounter Summary ---
Author Organization [facility] Address [address] [place] [address] Care Team Providers Care Triage Rn Name Role Phone Vel Gilliam MD Primary Care Provider Encounter Details Date Type Department Care Team (Late st Contact Info) Description 09/02/2004 Outpatient Historical [place] [address] 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 Gender Identity Not on file Sexual Orientation Not on file documented as of this encounter Plan of Treatment Upcoming Encounters Date Type Department Care Team (Late st Contact Info) Description 03/13/2025 4:30 PM CDT Telephone Check Up [facility] Oncology and Hematology - [place] [address] [place] [address] [address] [place] [address] Armond Epstein MD [address] [facility] [address] [place] [address] documented as of this encounter Visit Diagnoses Diagnosis Peripheral vascular disease, unspecified- Primary documented in this encounter Care Teams Triage Rn Relationship Specialty Start Date End Date Vel Gilliam MD [address] [place] [address] PCP - General Family Practice 02/14/14 documented as of this encounter
--- OUTSIDE RECORDS SUMMARY | 2025-02-20 13:16 | XMS_ITS | Encounter Summary ---
Author Organization [facility] Address [address] [place] [address] Care Team Providers Care Crushing Machine Operator Name Role Phone Vel Gilliam MD Primary Care Provider [phone] Encounter Details Date Type Department Care Team (Late st Contact Info) Description 09/12/2007 Outpatient Historical [facility] Family Medicine [place] [address] [facility] [address] [place] [address] [place] [address] [facility] [place] [address] Social History Tobacco Use Types Packs/Day Years Used Date Smoking Tobacco: Never Assessed Sex and Gender Information Value Date Recorded Sex Assigned at Not on file Legal Sex Male 4:23 AM CLINICAL DATA ASSISTANT Gender Identity Not on file Sexual Orientation Not on file documented as of this encounter Last Filed Vital Signs Vital Sign Reading Time Taken Comments Blood Pressure 142/68 09/12/2007 1:00 PM CLINICAL DATA ASSISTANT Pulse 80 09/12/2007 1:00 PM CLINICAL DATA ASSISTANT Temperature - - Respiratory Rate - - Oxygen Saturation - - Inhaled Oxygen Concentration - - Weight 93 kg (205 lb) 09/12/2007 1:00 PM CLINICAL DATA ASSISTANT Height - - Body Mass Index - - documented in this encounter Plan of Treatment Upcoming Encounters Date Type Department Care Team (Late st Contact Info) Description 03/13/2025 4:30 PM CDT Telephone Check Up [facility] Oncology and Hematology - [place] [address] [facility] [address] [place] [address] Armond Epstein MD [address] [facility] [address] [place] [address] documented as of this encounter Visit Diagnoses Not on filedocumented in this encounter Care Teams Crushing Machine Operator Relationship Specialty Start Date End Date Vel Gilliam MD [address] [place] [address] PCP - General Family Practice 02/14/14 documented as of this encounter
--- OUTSIDE RECORDS SUMMARY | 2025-02-20 13:16 | XMS_ITS | Encounter Summary ---
Author Organization [facility] Address [address] [place] [address] Care Team Providers Care Boiler Shop Supervisor Name Role Phone Vel Gilliam MD Primary Care Provider [phone] Encounter Details Date Type Department Care Team (Late st Contact Info) Description 06/13/2007 Orders Only [facility] Family Medicine [facility] [address] [facility] [address] [place] [address] [place] [address] [place] [address] Social History Tobacco Use Types Packs/Day Years Used Date Smoking Tobacco: Never Assessed Sex and Gender Information Value Date Recorded Sex Assigned at Not on file Legal Sex Male 4:23 AM V BELT CURER Gender Identity Not on file Sexual Orientation Not on file documented as of this encounter Progress Notes * Vicente Nino MD - 03/12/2008 1:45 PM CDT TIME:08:56 am PATIENT`S HOME PHONE: PATIENT`S WORK PHONE: PATIENT`S INSURANCE: [facility] WHO TOOK THE CALL: Samaria Lozada M GENERAL INFORMATION PATIENT STATUS: Established Patient. ALTERNATIVE PHONE NUMBER: [phone] WHO CALLED: Patient called. PHARMACY NUMBER: fax to [facility] SECTION 1: REQUESTED ACTION [email or web address] 06/13/07 at 08:57 am: MEDICATION REQUEST: Patient requests a refill. Lisinopril 90 day Amlodipine 90 days DOCTOR`S RESPONSE: [email or web address] 06/13/07 at 09:32 am DOCTOR`S OTHER RESPONSE: Dr. Mcconnell' patient--please send to him. SECTION 2: DOCTOR`S RESPONSE: vee 06/13/07 at 09:41 am MEDICATIONS: LISINOPRIL ORAL TABLET 40 MG TABLETS, 1 Every Day, 90 Dispensed, 90 Duration/Days Supply, status: CONTINUED, 06/13/2007. NORVASC ORAL TABLET 10 MG, 1 Every Day, 90 Dispensed, 90 Duration/Days Supply, status: CONTINUED, 06/13/2007. FINAL ACTION: cari 06/13/07 at 04:24 pm Called pharmacy at 06/13/07 at 04:24 pm. Requested faxed to [facility]. OR advising pt...tono Electronically Signed by: Tono Weinstein on Wednesday, June 13, 2007 documented in this encounter Plan of Treatment Upcoming Encounters Date Type Department Care Team (Late st Contact Info) Description 03/13/2025 4:30 PM CDT Telephone Check Up [facility] Oncology and Hematology - [place] [address] [place] [address] [address] [place] [address] Armond Epstein MD [address] [facility] [address] [place] [address] documented as of this encounter Visit Diagnoses Not on filedocumented in this encounter Care Teams Boiler Shop Supervisor Relationship Specialty Start Date End Date Vel Gilliam MD [address] [place] [address] PCP - General Family Practice 02/14/14 documented as of this encounter
--- OUTSIDE RECORDS SUMMARY | 2025-02-20 13:16 | XMS_ITS | Encounter Summary ---
Author Organization [facility] Address [address] [place] [address] Care Team Providers Care Head Inspector And Center Marker Name Role Phone Vel Gilliam MD Primary Care Provider [phone] Encounter Details Date Type Department Care Team (Late st Contact Info) Description 12/25/2003 Outpatient Historical [facility] Family Medicine [facility] [address] 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 Gender Identity Not on file Sexual Orientation Not on file documented as of this encounter Plan of Treatment Upcoming Encounters Date Type Department Care Team (Late st Contact Info) Description 03/13/2025 4:30 PM CDT Telephone Check Up [facility] Oncology and Hematology - [place] [address] [facility] [address] [place] [address] Armond Epstein MD [address] [facility] [address] [place] [address] documented as of this encounter Visit Diagnoses Not on filedocumented in this encounter Care Teams Head Inspector And Center Marker Relationship Specialty Start Date End Date Vel Gilliam MD [address] [place] [address] PCP - General Family Practice 02/14/14 documented as of this encounter
--- OUTSIDE RECORDS SUMMARY | 2025-02-20 13:16 | XMS_ITS | Encounter Summary ---
Author Organization [facility] Address [address] [place] [address] Care Team Providers Care Director Heart Name Role Phone Vel Gilliam MD Primary Care Provider [phone] Encounter Details Date Type Department Care Team (Late st Contact Info) Description 04/01/2005 Outpatient Historical [facility] Family Medicine [place] [address] [facility] [address] [place] [address] [place] [address] 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 Gender Identity Not on file Sexual Orientation Not on file documented as of this encounter Last Filed Vital Signs Vital Sign Reading Time Taken Comments Blood Pressure 158/80 04/01/2005 9:15 AM CDT Pulse 64 04/01/2005 9:15 AM CDT Temperature - - Respiratory Rate 14 04/01/2005 9:15 AM CDT Oxygen Saturation - - Inhaled Oxygen Concentration - - Weight 89.8 kg (198 lb) 04/01/2005 9:15 AM CDT Height - - Body Mass Index - - documented in this encounter Plan of Treatment Upcoming Encounters Date Type Department Care Team (Late st Contact Info) Description 03/13/2025 4:30 PM CDT Telephone Check Up [facility] Oncology and Hematology - [place] [address] [place] [address] Armond Epstein MD [address] [facility] [address] [place] [address] documented as of this encounter Visit Diagnoses Not on filedocumented in this encounter Care Teams Director Heart Relationship Specialty Start Date End Date Vel Gilliam MD [address] [place] [address] PCP - General Family Practice 02/14/14 documented as of this encounter
--- OUTSIDE RECORDS SUMMARY | 2025-02-20 13:17 | XMS_ITS | Referral Summary ---
Author Organization [facility] Address [address] [place] [address] Phone Care Team Providers Care Senior Piping Designer Name Role Phone Fina Todd MD Unavailable Quintin Downey MD Unavailable Bipin Wetzel MD Unavailable Yancy Loera MD Unavailable Dwayne Hercules MD Unavailable Dwayne Hercules MD Unavailable [phone] Nigel Elizalde MD Unavailable Issa Sanches MD Unavailable Miscellaneous, Not In File Unavailable Unava Vel Lazo MD Primary Care Provider [phone] Encounters Date Type Department Care Team Description 02/18/2025 Orders Only [facility] Surgery [address] [facility] Advanced Medicine 8th [place] [address] [place] [address] Molina Jordan MD End stage renal disease (HCC) (Primary Dx) 02/18/2025 Telephone [facility] Surgery [address] [facility] [facility] [address] [facility] Floor 1 [place] [address] Molina Jordan MD 02/06/2025 7:45 AM CDT Ancillary Procedure [facility] Cardiology [address] [address] Bradycardia; Sinoatrial node dysfunction (HCC); Cardiac pacemaker in situ 02/05/2025 7:30 AM CDT - 02/05/2025 10:00 AM CDT Surgery [facility] Operating Room [address] [place] [phone] Molina Jordan MD Creation Right Arteriovenous Fistula 02/05/2025 7:35 AM CDT Anesthesia Event [facility] Operating Room [facility] [place] [phone] Miguel Urena MD 02/05/2025 5:32 AM CDT - 02/05/2025 10:36 AM CDT Hospital Encounter [facility] Operating Room [facility] [place] [phone] Molina Jordan MD Chronic kidney disease (CKD), stage V (HCC) (Primary Dx) Discharge Disposition: Discharge to home or self care 01/23/2025 11:59 PM CDT Anesthesia Event [facility] Operating Room [address] [place] [address] Shantal Gregory NP 02/01/2025 Telephone [facility] Vascular Surgery [address] [facility] Medical Office Building [address] [place] [phone] Molina Jordan MD 01/29/2025 10:45 AM CDT Office Visit [facility] Cardiology at [address] [place] [phone] Dwayne Fowler MD Chronic systolic CHF (congestive heart failure) (HCC) (Primary Dx); Chronic systolic congestive heart failure (HCC); Cardiomyopathy, unspecified type (HCC); Nonrheumatic mitral valve regurgitation; Pacemaker; Asymptomatic bilateral carotid artery stenosis 01/21/2025 Telephone [facility] Surgery [address] [facility] Floor 1 [place] [phone] Esperanza Bedolla PA 01/21/2025 Results Follow-Up [facility] Cardiology [address] [facility] [address] [place] [phone] Dwayne Fowler MD 01/17/2025 2:30 PM CDT Ancillary Procedure [facility] Cardiology at [address] [place] [address] Chronic systolic CHF (congestive heart failure) (HCC); Cardiomyopathy, unspecified type (HCC); Nonrheumatic mitral valve regurgitation 01/16/2025 10:15 AM CDT Office Visit [facility] Surgery [address] [facility] 8th [place] [address] [place] [phone] Molina Jordan MD Chronic kidney disease (CKD) stage G5/A1, glomerular filtration rate (GFR) less than or equal to 15 mL/min/1.73 square meter and albuminuria creatinine ratio less than 30 mg/g ([facility]) (Primary Dx); Chronic kidney disease, stage 4 (severe) (HCC) 01/16/2025 9:30 AM CDT Ancillary Procedure [facility] Vascular Lab at the [facility] [address] [facility] 8th [place] [address] [place] [phone] Chronic kidney disease (CKD) stage G5/A1, glomerular filtration rate (GFR) less than or equal to 15 mL/min/1.73 square meter and albuminuria creatinine ratio less than 30 mg/g (HCC) 01/08/2025 Telephone [facility] Vascular Surgery [address] [place] [address] Office Building [address] [place] [phone] Molina Jordan MD 01/08/2025 Telephone [facility] Surgery [address] [facility] Floor 1 [place] [phone] Molina Jordan MD 12/18/2024 Orders Only [facility] Vascular Surgery [address] [place] [address] Office Building [address] [place] [phone] Molina Jordan MD Chronic kidney disease (CKD) stage G5/A1, glomerular filtration rate (GFR) less than or equal to 15 mL/min/1.73 square meter and albuminuria creatinine ratio less than 30 mg/g (HCC) (Primary Dx) 12/04/2024 3:45 PM MANAGER PHP Lab [facility] at [address] [place] [address] Other systemic lupus erythematosus with other organ involvement (HCC) 12/04/2024 3:00 PM MANAGER PHP Office Visit [facility] Rheumatology [address] [facility] Medical Office Building [address] [place] [phone] Yancy Loera MD Other systemic lupus erythematosus with other organ involvement (HCC) 12/01/2024 10:00 AM MANAGER PHP - 12/01/2024 11:59 PM MANAGER PHP Hospital Encounter [facility] [address] [place] [address] Multiple pulmonary nodules Discharge Disposition: Discharge to home or self care 11/28/[address] [place] [address] Pedro Pablo Sue MD 11/28/[address] [place] [address] Pedro Pablo Sue MD 11/28/2024 10:30 AM MANAGER PHP Office Visit [address] [place] [address] Pedro Pablo uSe MD Obstructive sleep apnea (Primary Dx); History of radiation therapy; Chronic cough; Non-seasonal allergic rhinitis due to pollen; Simple chronic bronchitis (HCC); Multiple pulmonary nodules; Cigarette nicotine dependence without complication; Monoclonal gammopathy 11/26/2024 12:51 PM MANAGER PHP Anesthesia Event [facility] [address] [place] [phone] Kyle Villagran MD Tynes, Jessika Olegovna, MCKAYLA 11/26/2024 12:00 PM MANAGER PHP - 11/26/2024 12:30 PM MANAGER PHP Surgery [facility] [address] [place] [address] Marv Kaminski MD ESOPHAGOGASTRODUODENOSCOPY ULTRASOUND GUIDE LIMITED 11/26/2024 10:54 AM MANAGER PHP - 11/26/2024 2:45 PM MANAGER PHP Hospital Encounter [facility] [address] [place] [phone] Marv Kaminski MD IPMN (intraductal papillary mucinous neoplasm) Discharge Disposition: Discharge to home or self care from Last 3 Months Allergies No known active allergies Medications simvastatin (ZOCOR) 10 mg tabletIndication s:hyperlipidemia Take 1 tablet (10 mg total) by mouth every morning 020 Active cholecalciferol (VITAMIN D-3) 5,000 unit tablet Take 1 tablet (5,000 Units total) by mouth daily Active albuterol HFA (ProAir HFA) 90 mcg/actuation inhaler Inhale 2 puffs every 4 (four) hours as needed for wheezing or shortness of breath 8.5 g 5 021 2098 Active sodium bicarbonate 650 mg tabletIndication s:CKD Take 1 tablet (650 mg total) by mouth 2 (two) times a day 023 Active metoprolol XL (TOPROL-XL) 100 mg 24 hr tablet Take 1 tablet (100 mg total) by mouth daily 90 tablet 3 024 2025 Active Additional Information Patient taking differently:100 mg oralEvery morning, Indications: hypertension, Informant: Self, Reported on 02/05/2025 amLODIPine (NORVASC) 5 mg tablet Take 2 tablets (10 mg total) by mouth daily 180 tablet 3 024 Active finasteride (PROSCAR) 5 mg tabletIndication s:benign prostatic hyperplasia with lower urinary tract sx Take 1 tablet (5 mg total) by mouth every morning Active tamsulosin (FLOMAX) 0.4 mg extended release capsuleIndicatio ns:benign prostatic hyperplasia with lower urinary tract sx Take 1 capsule (0.4 mg total) by mouth every morning 024 Active sennosides 17.2 mg tablet Take 1 tablet/capsule by mouth daily as needed (constipation) Active bumetanide (BUMEX) 1 mg tablet Take 1 tablet (1 mg total) by mouth every morning Active guaiFENesin ER (MUCINEX) 600 mg 12 hr tablet Take 1 tablet (600 mg total) by mouth as needed for cough Active fluticasone-umec lidin-vilanter (Trelegy Ellipta) 100-62.5-25 mcg inhaler Inhale 1 puff daily Rinse mouth with water after use, do not swallow 60 each 3 Active Additional Information Patient taking differently:1 puff inhalationEvery morning, Rinse mouth with water after use, do not swallow,Indications: Bronchospasm Prevention with COPD, Informant: Self, Reported on 02/05/2025 montelukast (SINGULAIR) 10 mg tablet TAKE 1 TABLET BY MOUTH EVERY DAY AT NIGHT 90 tablet 1 Active Additional Information Patient taking differently:10 mg oral Nightly,Indications: Maintenance Therapy for Asthma, Seasonal Allergic Rhinitis, Informant: Self, Reported on 02/05/2025 aspirin 81 mg enteric coated tablet Take 1 tablet (81 mg total) by mouth daily Active Additional Information Patient taking differently:81 mg oralEvery morning, Indications: prevention of thrombosis, Informant: Self, Reported on 02/05/2025 polyethylene glycol (MIRALAX) 17 gram packet Take 1 packet (17 g total) by mouth as needed for constipation Active hydroxychloroqui ne (PLAQUENIL) 200 mg tablet Take 1 tablet (200 mg total) by mouth daily PT REDUCED TO [address] LOERA INSTRUCTIONS. 90 tablet 1 Active clonazePAM (KlonoPIN) 0.5 mg disintegrating tablet Take 0.25 mg by mouth nightly as needed for anxiety Active acetaminophen (TYLENOL) 325 mg tablet Take 2 tablets (650 mg total) by mouth every 6 (six) hours as needed for pain Active ALPRAZolam (XANAX) 0.25 mg tablet Take 1 tablet (0.25 mg total) by mouth nightly as needed for anxiety Active oxyCODONE (ROXICODONE) 5 mg immediate release tabletIndication s:Pain Take 1 tablet (5 mg total) by mouth every 4 (four) hours as needed for pain 10 tablet 04/15/2 025 Active gabapentin (NEURONTIN) 300 mg capsule TAKE 1 CAPSULE BY MOUTH TWICE A DAY 60 capsule 2 025 Active ALPRAZolam (XANAX) 0.25 mg tablet TAKE 1 TABLET BY MOUTH TWICE A DAY 60 tablet 1 021 2024 Discontinued( Error) benzonatate (TESSALON) 100 mg capsule TAKE 1 CAPSULE BY MOUTH THREE TIMES A DAY NEEDED FOR COUGH 30 capsule 024 2024 Discontinued( Error) gabapentin (NEURONTIN) 300 mg capsule TAKE 1 CAPSULE BY MOUTH TWICE A DAY 60 capsule 1 025 2024 Discontinued Active Problems Problem Noted Date Diagnosed Date Chronic kidney disease (CKD), stage V 01/21/2025 Chronic systolic CHF (congestive heart failure) 09/04/2024 Nonrheumatic mitral valve regurgitation 09/04/20 Cardiomyopathy 09/04/2024 Peripheral arterial occlusive disease 12/13/2023 Overview (12/13/2023): PVD - Peripheral vascular disease; Comments: TWM 11/07/2015 - Assessment & Plan (12/13/2023 1:29 PM MANAGER PHP): #PAD #Asx ICA stenosis - Home med: Simvastatin 10mg daily GERD (gastroesophageal reflux disease) 4 Assessment & Plan (12/13/2023 1:29 PM MANAGER PHP): - Home med: Famotidine 40mg daily Elevated troponin 12/13/2023 Assessment & Plan (12/13/2023 1:31 PM MANAGER PHP): - : Trop 47, 45, 49, plateaued - New RBBB on EKG compared to EKG 09/2023 Right bundle branch block (RBBB) 12/13/2023 Assessment & Plan (12/13/2023 1:40 PM MANAGER PHP): - Noted on EKG 12/12/2023, changed from prior EKG 09/2023 - Follow up with outpatient crew leader Dr. Chester Closed fracture dislocation of sternum Assessment & Plan (12/13/2023 1:29 PM MANAGER PHP): - pain controlled on RA and patient ambulatory after >12 hrs between accident and arriving to [facility]. - Repeat EKG with new RBBB compared to last EKG 09/2023 - Trop 47, 46, continue to trend - Admit to floor for telemetry, ECHO - Pain control - Ok for regular diet - TTE 12/14 with EF 65%, no signs of pericardial effusion or any other blunt cardiac injury Chronic cough 07/06/2023 Non-seasonal allergic rhinitis due to pollen Bradycardia 07/04/2023 Asymptomatic bilateral carotid artery stenosis 1 11/02/2021 Assessment & Plan (07/24/2024 9:19 AM CDT): Asymptomatic left ICA stenosis with significantly elevated ratio that is stable when compared to prior studies. Continue observation with a repeat carotid doppler in six months. Assessment & Plan (11/29/2023 9:59 AM MANAGER PHP): Asymptomatic and stable left ICA stenosis based on velocity criteria. As long as he's smoking, we recommend monitoring him with carotid doppler every six months. Assessment & Plan (09/02/2022 11:43 AM MANAGER PHP): He has minimal right ICA stenosis. The left ICA stenosis is in the moderate- severe range based on velocity criteria with progression of one of three criteria when compared to prior doppler performed in 2019. He needs further imaging of the left ICA stenosis. Given his chronic renal insufficiency with creatinine of 3.09 and GFR of 20, we will avoid administration of iodinated contrast. He has a [employer] Essentio pacemaker implant. The MR department at [facility] is checking with [employer] to determine if his implant - including the leads - are MR compatible. If the device is found to be compatible, we'll arrange an MRA carotids. Multiple pulmonary nodules 06/16/2022 Nicotine dependence 03/02/2022 Paresthesia of both lower extremities 07/10/2021 Assessment & Plan (07/10/2021 10:34 AM CDT): 80 year old who notes pain/numbness in both feet/calves with activity. He is concerned for peripheral neuropathy, but exam is without length dependent sensory changes. His history sounds most consistent with claudication. He is known to have both lumbar spinal stenosis with severe L4-5 stenosis as well as peripheral vascular disease which he reports is most prominent in left leg. His bilateral symptoms, progressive left calf atrophy and asymmetric sensory findings in legs make me feel most likely explanation for his symptoms is his lumbar spinal stenosis, which he had intended to have surgery for several years ago but was delayed by COVID and then not followed up on as sciatica improved (however left calf atrophy and exercise induced symptoms have worsened). I discussed that repeat Lspine MRI, EMG/NCS could be options but that I was skeptical peripheral neuropathy would be the explanation. 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 Ultimately, I agreed with their preference to return to spine surgeon as next step to discuss changes, but happy to see in future to reassess. I did review option of medication for pain, but given intermittent nature and suspected primary cause in back, will hold starting medication pending repeat surgical issue. Please call back if change/issue/re-evaluation desired. Pacemaker 08/12/2020 Overview (08/12/2020): [employer] DDD Essentio pacemaker implanted on 08/12/20 for SSS. [facility] Overweight with body mass in dex (BMI) of 28 to 28.9 in adult 08/06/2020 Assessment & Plan (08/06/2020 2:26 PM CDT): Unchanged Discussed healthy diet and importance of regular physical activity. Sinoatrial node dysfunction 08/05/2020 Overview (08/05/2020): Added automatically from request for surgery [id number] Anemia associated with chronic renal failure 08/2020 Bradycardia 05/09/2019 Overview (05/28/2024): Last Assessment & Plan: Symptomatic bradycardia in association with sinus node dysfunction. I recommended that the patient consider placement of a dual-chamber pacemaker. I explained the risks and benefits, and he would like to proceed. My office will make the appropriate arrangements. From: Nathalia Sosa AE, JP, Ellenbogen KA, Estes NAM III, Freedman RA, Gettes LS, Gillinov AM, Gregoratos G, Rosario LOMAX, Minesh RUEDA, Mildred HOPPER, Merrick DODD, Page RL, Danisha BRAMBILA, Loi TA, Donald CHANEY, Sukhwinder HARDY 2012 ACCF/AHA/HRS focused update incorporated into the ACCF/AHA/HRS 2008 guidelines for device-based therapy of cardiac rhythm abnormalities: a report of the [place] [employer] Foundation/[place] Heart Association Task Force on Practice Guidelines and the Heart Rhythm Society. J Am Kimberly Cardiol 2013;61:e6-75. 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 (Level of Evidence: C) Assessment & Plan (08/05/2020 3:46 PM CDT): Symptomatic bradycardia in association with sinus node dysfunction. I recommended that the patient consider placement of a dual-chamber pacemaker. I explained the risks and benefits, and he would like to proceed. My office will make the appropriate arrangements. From: Nathalia Sosa AE, JP, Ellenbogen KA, Estes NAM III, Lucas Forbes RA, Da BREWSTER, Larry Larsen, Rosario LOMAX, Minesh RUEDA, Mildred HOPPER, Merrick DODD, Page RL, Danisha BRAMBILA, Loi TA, Donald CHANEY, Sukhwinder HARDY 2012 ACCF/AHA/HRS focused update incorporated into the ACCF/AHA/HRS 2008 guidelines for device-based therapy of cardiac rhythm abnormalities: a report of the [place] [employer] Foundation/[place] Heart Association Task Force on Practice Guidelines and the Heart Rhythm Society. J Am Kimberly Cardiol 2013;61:e6-75. 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 (Level of Evidence: C) Assessment & Plan (05/09/2019 12:57 PM CDT): He was noticed he had a trending pattern it downward with his heart rate. He was getting more more significantly bradycardic. This could maybe feed into some of his symptoms. He has not seen a crew leader for any reasons lately. He has not had any active heart symptoms otherwise that brought him to 1. We did do an EKG which confirmed the it bradycardia. It is probably worth setting up a consult with the crew leader to assess this further. If there is any acute heart symptoms or concerns at all was reasonable to going to the emergency room to seek more emergent her medial evaluation. They will call interim if there is any other concerns. Reviewed symptoms to watch for. Hemorrhage of rectum and anus 04/04/2019 Overview (04/04/2019): Added automatically from request for surgery [id number] Assessment & Plan (06/13/2020 2:44 PM CDT): For the last 6 mos has had BRBPR 3x/mo without abd or anal pain. 04/11 colonoscopy tics and roids. Today rectal III roids, Discussed surgery, IRC, hi fiber diet and he desires to try hi fiber diet first and consider IRC if necessary. Return prn History of arthroplasty of left knee 03/06/2019 Spinal stenosis of lumbosacral region 03/06/2019 Assessment & Plan (03/06/2019 12:33 PM CDT): Going to be an ongoing chronic issue for pt. Provided education on the importance of going to therapy in efforts to help his symptoms and in hopes to reduce or lessen the severity of future symptoms. Pt was not fond of the idea of therapy. He did not go after his knee surgery, but I spent several minutes providing counseling on the importance of therapy. He told me, he wants to avoid back surgery if at all possible and therefore PT is even more important. Back pain associated with peripheral numbness Assessment & Plan (03/28/2019 1:11 PM CDT): Based on the results of the MRI and his hx of prostate CA, Onc eval is appropriate. Poss consider PET scan. Bone lesion could certainly explain pts symptoms however unknown if s/p radiation if his MRI findings are expected. Assessment & Plan (03/06/2019 12:34 PM CDT): Pt decline PO steroids at this time. If MRI and PT are not helpful, would consider a EMG of BLE or even NSGY ref. History of radiation therapy 03/06/2019 Vitamin D deficiency 03/05/2019 B12 deficiency 03/05/2019 Long-term current use of hig h risk medication other than anticoagulant 10/25/2018 Assessment & Plan (10/25/2018 3:10 PM MANAGER PHP): We reviewed current day concerns aboutbenzis and potential side effects and risks. They were willing to and did sign a contract. The understanding is they will not obtain scheduled medications from any other provider, they will use the same pharmacy to fill their scheduled medication, they will take it as prescribed, there will be no early refills, and they will be required to be seen every three months which they are responsible for setting up the appointments for. They are to contact us if any further concerns or questions. Anemia 07/15/2017 Assessment & Plan (10/25/2018 3:09 PM MANAGER PHP): Reviewed his recent labs. He is going to follow up with his stave mill hand about the anemia. He does not believe they spoke about it at the last appointment. He denies any active blood in the stool or other symptoms. He reports this has been a chronic issue Assessment & Plan (07/15/2017 9:31 PM CDT): Patient has anemia. It is improving. He has been through radiation therapy for his prostate cancer. He has had evaluation for anemia in the past. He has been through stool guaiacs his colonoscopy is up-to-date his iron studies are normal his MCV is within the normal range his vitamin B12 of is normal on for right now I would recheck his labs in a month. I told return in 1 month and will recheck his labs. Systemic lupus erythematosus 05/31/2017 Rheumatoid arthritis 12/07/2016 Assessment & Plan (05/03/2018 8:22 PM CDT): Patient is also followed by the engine pilot for his rheumatoid arthritis Monoclonal gammopathy 04/14/2016 Right inguinal hernia 03/09/2016 Overview (01/28/2017): Right inguinal hernia Hyperlipidemia 12/19/2015 Overview (01/27/2017): Hyperlipidemia, unspecified hyperlipidemia type Assessment & Plan (05/03/2018 8:23 PM CDT): Lipid abnormalities are improving with treatment. Pharmacotherapy as ordered. Lipids will be reassessed in 6 months. Dyslipidemia 12/19/2015 Overview (05/28/2024): Hyperlipidemia, unspecified hyperlipidemia type Last Assessment & Plan: Lipid abnormalities are improving with treatment. Pharmacotherapy as ordered. Lipids will be reassessed in 6 months. Testosterone deficiency 11/07/2015 Overview (01/27/2017): Low testosterone Peripheral vascular disease 11/07/2015 Overview (01/27/2017): Peripheral vascular disease Assessment & Plan (09/02/2022 10:18 AM MANAGER PHP): Stable lower extremity arterial disease both symptomatically and based on vascular study. Repeat ABIs in one year. Assessment & Plan (04/13/2017 6:13 PM CDT): Has carotid disease. Had an ultrasound in October. Followed by Dr. Herrmann Anxiety disorder 11/07/2015 Overview (01/27/2017): Depression, unspecified depression type Assessment & Plan (12/13/2023 1:28 PM MANAGER PHP): - Home med: Alprazolam 0.25mg BID Sjogren's disease 01/07/2015 Assessment & Plan (12/13/2023 1:27 PM MANAGER PHP): #Sjogrens/SLE - Home med: Plaquenil 200mg BID, Gabapentin 300mg BID Chronic kidney disease, stage IV (severe) 2009 Assessment & Plan (03/03/2020 1:12 PM CDT): He is going to call the stave mill hand to make sure they are okay with increasing Avapro does as well as if they want any labs or to assess things further. We did review symptoms to watch for in medicine side effect potentials. Assessment & Plan (05/03/2018 8:24 PM CDT): Renal condition is unchanged. Continue current treatment regimen. Renal condition will be reassessed in 3 months. Assessment & Plan (04/13/2017 6:14 PM CDT): Renal condition is unchanged. Continue current treatment regimen. Renal condition will be reassessed in 6 months. Chronic rhinitis 09/12/2007 Hypertension 07/29/2005 Overview (03/05/2019): Essential hypertension Assessment & Plan (12/13/2023 1:27 PM MANAGER PHP): - Home med: Amlodipine 0.25mg BID, HCTZ 200mg daily, Metop 50mg daily, Irbesartan 300mg daily Assessment & Plan (03/03/2020 1:12 PM CDT): He is going to cautiously increase Avapro 150 mg twice a day. He is aware were going to have to watch his renal function. He is also going to reach out to his stave mill hand to make sure they are on board with that. I did put lab orders in. He can acid stave mill hand as well as engine pilot if they wanted the other labs in the near future so we can coordinate hopefully due to gather. We went over symptoms to watch for. If he has any worse symptoms questions or concerns he has not hesitate to reach out for reassessment. Assessment & Plan (05/03/2018 8:24 PM CDT): Hypertension is unchanged. Continue current treatment regimen. Blood pressure will be reassessed in 3 months. Assessment & Plan (01/26/2018 4:04 PM CDT): Hypertension is unchanged. Medication changes per orders. Blood pressure will be reassessed in 3 months. For convenience H we have switched him to labetalol 100 mg twice a day Assessment & Plan (04/13/2017 6:12 PM CDT): Hypertension is unchanged. Continue current treatment regimen. Blood pressure will be reassessed in 3 months. 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 COPD (chronic obstructive pulmonary disease) Assessment & Plan (12/13/2023 1:26 PM MANAGER PHP): - Home med: Trelegy Ellipta daily, Albuterol inhaler PRN Resolved Problems Problem Noted Date Diagnosed Date Resolved Date Allergic rhinitis 08/29/2024 11/28/2024 Simple chronic bronchitis 03/02/2022 Orthostatic hypotension 08/04/2020 12/0 10/2019 Near syncope 08/04/2020 09/23/2020 Assessment & Plan (08/06/2020 2:25 PM CDT): New: agree patient needs PM. Instructed patient to follow up after PM placement. Reviewed all of the medication changes made at hospital and by cards to ensure our list is accurate. Pre-op exam 12/28/2019 12/28/2019 Assessment & Plan (12/28/2019 12:47 PM MANAGER PHP): I do not see any indication why this pt can not proceed with surgery especially since he has been cleared by nephrology and pulmonology. EKG: normal EKG, normal sinus rhythm, unchanged from previous tracings. Abnormal MRI, spine 03/28/2019 09/23/20 20 Rectal bleeding 03/27/2019 12/28/2019 Assessment & Plan (03/28/2019 1:14 PM CDT): Given the change in severity and color, seems he likely has some hemorrhoids but given the darker colored stools and his cancer hx, GI eval and Onc eval are appropriate. Discussed POC with Ness Nur and she agrees. Will r/o thrombocytopenia and if pt is anemic will poss give clue to the severity of bleeding. Will also check urine to assess for hematuria. Pt requested Dr. Covarrubias, he did not have an oncologist in the past only rad onc (Dr. Nichols) and therefore asked me to placed a referral for someone. BMI 29.0-29.9,adult 10/25/2018 12/28/19 20 Assessment & Plan (03/28/2019 1:11 PM CDT): BMI is acceptable for this patient. Assessment & Plan (03/06/2019 11:30 AM CDT): Discussed healthy diet and importance of regular physical activity. Assessment & Plan (10/25/2018 3:09 PM MANAGER PHP): BMI Follow-up includes: nutrition counseling, exercise counseling and education provided. Diarrhea 10/25/2018 03/05/2019 Foot pain, bilateral 06/27/2018 019 Skin lesions, generalized 01/26/2018 Assessment & Plan (01/26/2018 4:03 PM CDT): Patient has multiple skin issues on his back. I have elected to refer him to the personal driver. I do not see anything overly alarming right now. There is some much going on there though. Bronchitis 12/06/2017 03/05/2019 Assessment & Plan (12/06/2017 12:24 PM MANAGER PHP): Still smoking colored sputum plus wheezes will check cxr and z pack Hx of carcinoma in situ of prostate 04/13/2017 09/23/2020 Assessment & Plan (05/03/2018 8:23 PM CDT): Patient is a history of prostate cancer has been doing well Assessment & Plan (04/13/2017 6:15 PM CDT): Undergoing radiation currently. Groin swelling 06/08/2016 03/05/2019 Overview (01/27/2017): Groin swelling Anxiety 11/07/2015 03/05/2019 Overview (01/27/2017): Anxiety Assessment & Plan (10/25/2018 3:10 PM MANAGER PHP): He will continue on his Lexapro. I refilled the Xanax. He reports he is doing okay between the 2 medications. We reviewed medication side effect potentials Obesity with body mass index (BMI) of 30.0 to 39.9 11/07/2015 09/23/2020 Overview (01/27/2017): Lumbar herniated disc Assessment & Plan (12/28/2019 10:37 AM MANAGER PHP): Unchanged Discussed healthy diet and importance of regular physical activity. Assessment & Plan (03/06/2019 12:33 PM CDT): Imaging not on file. MRI appropriate given worsening of symptoms and to determine plan of care. History of eye disorder 11/07/2015 12/0 10/2019 Overview (01/27/2017): History of Sjogren's disease Knee pain 11/07/2015 03/05/2019 Overview (01/27/2017): Chronic pain of left knee Abdominal aortic aneurysm (AAA) 02/05/2014 09/02/2022 Stenosis of carotid artery 02/05/2014 1 11/02/2021 Assessment & Plan (05/03/2018 8:22 PM CDT): Patient has carotid disease. He is followed by the vascular surgeons at [facility]. Moderate major depression, single episode 05/24/2011 12/28/2019 Obesity 09/24/2010 03/05/2019 Microalbuminuria 08/26/2008 12/28/2019 Aortic valve sclerosis 07/29/200503/05 Immunizations Immunization Administration Dates Next Due Flucelvax Influenza Quad MDI 06/25/2020 Influenza, Live, Intranasal, Quadrivalent 11/07/2015 Influenza, Quadrivalent, Hig h Dose, Preservative Free, Intrr 06/25/2020 Influenza, Quadrivalent, Spl it, Intramuscular 09/10/2014 Influenza, Quadrivalent, Spl it, Preservative Free, Intradermal 11/07/2015 Influenza, Split 08/29/2017 Influenza, Trivalent, High D ose, Split, Preservative Free, Intramuscular 08/18/2019,08/07/2018,07/20/2016,08/14 Influenza, Trivalent, IM (MDV) 1,06/29/2011,07/21/2010,08/07,07/25/2003 Influenza, Unspecified 09/10/2018,2016,04/14/2016,03/25,09/17/2014,09/03/2014,06/29/2011 ,07/21/2010,08/07/2008,07/25/2003 Pneumococcal Conjugate PCV 13 06/01/2016 Pneumococcal Polysaccharide PPV23 03/28/2013,03/2008 TD Preservative Free 10/24/2011 Td, Unspecified 08/29/2008,10/24/1997 Td, adsorbed 08/29/2008,10/24/1997 Social History Tobacco Use Types Packs/Day Years Used Date Smoking Tobacco: Every Day Cigarettes 0.7 64.3 Started: 1960 Passive Smoke Exposure: Past Smokeless Tobacco: Never Tobacco Cessation:Ready to Q uit: Not Asked; Counseling Given: Not Answered Comments:34 pack hx Alcohol Use Standard Drinks/Week [...] on file Legal Sex Male 3:08 AM MANAGER PHP Gender Identity Male 09/15/2020 1:55 PM MANAGER PHP Sexual Orientation Straight 03/02/2020 6: 25 PM CDT Last Filed Vital Signs Vital Sign Reading Time Taken Comments Blood Pressure 129/57 02/05/2025 10:00 AM CDT Pulse 70 02/05/2025 10:00 AM CDT Temperature 36.1 C (97 F) 02/05/2025 9:00 AM CDT Respiratory Rate 17 02/05/2025 10:00 AM CDT Oxygen Saturation 98% 02/05/2025 10:00 AM CDT Inhaled Oxygen Concentration - - Weight 73.5 kg (162 lb 0.6 oz) 02/05/2025 6:26 A M CDT Height 167.6 cm (5' 6 ) 02/05/2025 6:26 AM CDT Body Mass Index 26.15 02/05/2025 6:26 AM CDT Plan of Treatment Not on file Medical Devices Implanted Type Area Cytology Laboratory Manager Device Identifier Shelf Expiration Date Model / Serial / Lot [employer] Fadumo 7841 Lead 7841 Endocardial Pacing Mr Is-1 Bipolar Connection - [id number] - [id number] Implanted:Qty: 1 on 08/12/2020 by Issa Sanches MD at [facility] [employer] [id number] 11/20/2021 [id number] / [id number] / [employer] Fadumo 7840 Lead 7840 Endocardial Pacing Mr Is-1 Bipolar Connection - [id number] - [id number] Implanted:Qty: 1 on 08/12/2020 by Issa Sanches MD at [facility] [employer] F[employer] [id number] 11/22/2021 7840 / [id number] / [employer]. L111 Essentio 4.45x5.02cm 2 Chamber Is1 Connector .75cm Pacemaker 13.7 - [id number] - [id number] Implanted:Qty: 1 on 08/12/2020 by Issa Sanches MD at [facility] [employer] C[employer]M. [id number] 06/23/2022 L111 / [id number] / Procedures Procedure Name Priority Date/Time Associated Diagnosis Comments DEVICE CHECK - REMOTE Routine 02/07/2025 9:53 AM CDT Bradycardia Sinoatrial node dysfunction (HCC) Cardiac pacemaker in situ WA AN PROCEDURE PLACEHOLDER Routine 01/22 7:52 AM CDT WA AN ELECTIVE SUPRAGLOTTIC AIRWAY Routine 02/05/2025 7:52 AM CDT CONSTRUCTION ARTERIOVENOUS FISTULA 02/05/2025 7:34 AM CDT Chronic kidney disease (CKD), stage V (HCC) EGFR STAT 02/05/2025 6:36 AM CDT BASIC METABOLIC PANEL STAT 02/05/2025 6:36 AM CDT TRANSTHORACIC ECHO (TTE) COMPLETE W DOPPLER/CF WO CONTRAST Routine 01/17/2025 3:06 PM CDT Chronic systolic CHF (congestive heart failure) (HCC) Cardiomyopathy, unspecified type (HCC) Nonrheumatic mitral valve regurgitation US VEIN MAPPING FISTULA ACCESS, BILATERAL Schedule Routine, Read Routine (OP Routine) 01/16/2025 9:58 AM CDT Chronic kidney disease (CKD) stage G5/A1, glomerular filtration rate (GFR) less than or equal to 15 mL/min/1.73 square meter and albuminuria creatinine ratio less than 30 mg/g (HCC) PROTEIN / CREATININE RATIO, URINE, RANDOM Routine 12/04/2024 5:14 PM MANAGER PHP Other systemic lupus erythematosus with other organ involvement (HCC) URINALYSIS AND REFLEX TO MICROSCOPIC AND CULTURE Routine 12/04/2024 5:14 PM MANAGER PHP Other systemic lupus erythematosus with other organ involvement (HCC) JUSTINA-1 ANTIBODY Routine 12/04/2024 3:59 PM MANAGER PHP Other systemic lupus erythematosus with other organ involvement (HCC) SCL 70 ANTIBODIES Routine 12/04/2024 3:59 PM MANAGER PHP Other systemic lupus erythematosus with other organ involvement (HCC) TECHNICAL ASSISTANT ANTIBODIES Routine 12/04/2024 3:59 PM MANAGER PHP Other systemic lupus erythematosus with other organ involvement (HCC) LOZADA ANTIBODIES Routine 12/04/2024 3:59 PM MANAGER PHP Other systemic lupus erythematosus with other organ involvement (HCC) SJOGRENS SYNDROME-B ANTIBODY Routine 08/2025 3:59 PM MANAGER PHP Other systemic lupus erythematosus with other organ involvement (HCC) SJOGRENS SYNDROME-A ANTIBODY Routine 08/2025 3:59 PM MANAGER PHP Other systemic lupus erythematosus with other organ involvement (HCC) EGFR Routine 12/04/2024 3:59 PM MANAGER PHP Other systemic lupus erythematosus with other organ involvement (HCC) DIFFERENTIAL AUTO Routine 12/04/2024 3:59 PM MANAGER PHP Other systemic lupus erythematosus with other organ involvement (HCC) CBC WITH AUTO DIFFERENTIAL Routine 12/04 3:59 PM MANAGER PHP Other systemic lupus erythematosus with other organ involvement (HCC) COMPREHENSIVE METABOLIC PANEL Routine 3:59 PM MANAGER PHP Other systemic lupus erythematosus with other organ involvement (HCC) C3 COMPLEMENT Routine 12/04/2024 3:59 PM MANAGER PHP Other systemic lupus erythematosus with other organ involvement (HCC) CRP (ACUTE PHASE) Routine 12/04/2024 3:59 PM MANAGER PHP Other systemic lupus erythematosus with other organ involvement (HCC) ANTI-DOUBLE STRANDED DNA ANTIBODIES Routine 12/04/2024 3:59 PM MANAGER PHP Other systemic lupus erythematosus with other organ involvement (HCC) ERYTHROCYTE SEDIMENTATION RATE Routine 0 12/04/2024 3:59 PM MANAGER PHP Other systemic lupus erythematosus with other organ involvement (HCC) C4 COMPLEMENT Routine 12/04/2024 3:59 PM MANAGER PHP Other systemic lupus erythematosus with other organ involvement (HCC) NATALIIA ANTIBODY EVALUATION WITH REFLEX Routine 12/04/2024 3:59 PM MANAGER PHP Other systemic lupus erythematosus with other organ involvement (HCC) CT CHEST WO CONTRAST Schedule Routine, Read Routine (OP Routine) 12/01/2024 10:07 AM MANAGER PHP Multiple pulmonary nodules US ENDOSCOPIC IP Routine 11/26/2024 1:07 PM MANAGER PHP IPMN (intraductal papillary mucinous neoplasm) CYTOLOGY Routine 11/26/2024 1:01 PM MANAGER PHP IPMN (intraductal papillary mucinous neoplasm) ESOPHAGOGASTRODUODENOSCOPY ULTRASOUND GUIDE LIMITED 11/26/2024 12:51 PM MANAGER PHP IPMN (intraductal papillary mucinous neoplasm) UPPER EUS 11/26/2024 11:36 AM MANAGER PHP from Last 3 Months Results * DEVICE CHECK - REMOTE (02/07/2025 9:53 AM CDT) Anatomical Region Laterality Modality Other Narrative 02/14/2025 5:10 PM CDT [employer] DDD Essentio pacemaker implanted on 08/12/20 for SSS. [facility]. Routine DDDR Pacemaker Remote. Transmission attached. Battery status: Ok, 3.5 years remaining battery life to MANE. Stable lead impedances, pacing and sensing thresholds. Presenting rhythm: AP-DIRECTOR IT. AP-100%, DIRECTOR IT-98%. 1 AT/AF episodes noted, 2 second duration, IEGM demonstrates noise. No Ventricular high rate episodes detected. Medications: ASA 81 mg, Toprol-XL. See scanned report. Office pacemaker follow up: 1 year. De remote f/u 05/08/2025. Adali Vaca, RN Dwayne Fowler MD [facility] PROCE MICHAEL Final Result * WA AN ELECTIVE SUPRAGLOTTIC AIRWAY, WA AN PROCEDURE PLACEHOLDER (02/05/2025 7:52 AM CDT) Narrative Rebecca Weaver CRNA - 02/05/2025 7:52 AM CDT Rebecca Weaver CRNA 02/05/2025 7:53 AM Airway Patient location: OR Urgency: elective Date/time: 02/05/2025 7:42 AM Indications for airway management: anesthesia Difficult airway: no Staff: Placed by: BOARDING ROOM FIXER: Rebecca Weaver CRNA Resident: Miguelito Longoria Emergent airway documentation: Risks and benefits discussed: yes Consent obtained: yes Consent given by: patient Airway prep: Preoxygenated: yes Patient position: sniffing Mask difficulty assessment: 1 - vent by mask Spontaneous ventilation during airway: absent Sedation level during airway: GA Final airway details: Final airway type: supraglottic airway Final supraglottic airway: IGel SGA size: 4 Number of attempts: 1no Miguel Urena MD ANESTHESIA ORDERABLES Final Result * (ABNORMAL) eGFR (02/05/2025 6:36 AM CDT) eGFR 16(L) >=60 mL/min/1. 73 m2 Comment: Interpretive Data Reference Interval Normal >/= 90 mL/min/1.73m2 Mildly decreased* 60 - 89 mL/min/1.73m2 Mildly to moderately decreased 45 - 59 mL/min/1.73m2 Moderately to severely decreased 30 - 44 mL/min/1.73m2 Severely decreased 15 - 29 mL/min/1.73m2 Kidney Failure < 15 mL/min/1.73m2 *Relative to young adult level Estimated glomerular filtration rate is determined by the 2020 CKD-EPI equation recommended by the National Kidney Foundation (A Unifying Approach to GFR Estimation: Recommendations of the NKF-ASK Task Force on Reassessing the Inclusion of Race in Diagnosing Kidney Disease, JASN 2020). The CKD-EPI equation should not be used for patients with unstable renal function and has not been validated in children and those over 70. Current interpretive data was last reviewed 2021. Blood 02/05/2025 6:36 AM CDT 02/05/2025 6:47 AM CDT Miguel Iain Urena MD LAB BLOOD ORDERABLES F inal Result Performing Organization Address [facility]/ZIP Co de Phone Number [facility] [address] Department [place] [address] * (ABNORMAL) Basic metabolic panel (02/05/2025 6:36 AM CDT) Sodium 142 135 - 145 mmol/L Potassium, pl 4.8 3.3 - 4.9 mmol/L [facility] Chloride 110 97 - 110 mmol/L [facility] CO2 17(L) 22 - 32 mmol/L [facility] Anion gap 15 2 - 15 mmol/L [facility] BUN 70(H) 6 - 25 mg/dL [facility] Creatinine 3.66(H) 0.80 - 1.30 mg/dL [facility] Glucose 71 70 - 199 mg/dL [facility] Comment: Interpretive Data Fasting glucose >/= 126 mg/dl is diagnostic for diabetes. Fasting is defined as no caloric intake for at least 8 hours. Fasting glucose between 100 mg/dl to 125 mg/dl is diagnostic of prediabetes. In a patient with classic symptoms of hyperglycemia or hyperglycemic crisis, a random glucose >/= 200 mg/dl is diagnostic for diabetes. In the absence of unequivocal hyperglycemia, results should be confirmed by repeat testing. The classification and Diagnosis of Diabetes Diabetes Care 202; 46: S19-S40. Current interpretive data was last revised 2022. Calcium 8.7 8.5 - 10.3 mg/dL [facility] Blood 02/05/2025 6:36 AM CDT 02/05/2025 6:47 AM CDT Miguel Iain Urena MD LAB BLOOD ORDERABLES F inal Result [facility] [address] Department [place] [address] * TRANSTHORACIC ECHO (TTE) COMPLETE W DOPPLER/CF WO CONTRAST (01/17/2025 3:06 PM CDT) LV EF 30 % CONS SCIMAGE Anatomical Region Laterality Modality Ultrasound 01/17/2025 2:30 PM CDT Narrative 01/18/2025 7:28 AM CDT [facility] [address], [address], [place] [address] P:[phone] P:[phone] Echocardiographic Report Patient Name: UNIQUE FRANK H : 1940 Study Date: 01/17/2025 2:30:38 PM Gender: M Tech: Location: [facility] Ref Provider: DWAYNE FOWLER Height(Cm): 168 BSA: 1.85 Weight(Kg): 73.5 Heart Rate: 70 BP: 114 / 69 Quality: Good Order Provider: DWAYNE FOWLER PROCEDURES: Echocardiographic Report: Transthoracic echocardiogram with complete 2D, M-Mode, and color Doppler examination. INDICATIONS: I50.22 Chronic systolic (congestive) heart failure, I42.9 Cardiomyopathy, unspecified, and I34.0 Nonrheumatic mitral (valve) insufficiency. MEASUREMENTS: 2D/MM Value Range Doppler Value Range EF Teich MM 30 % [ 52 - 72 ] MIKY Vmax 2.52 cm2 [ 2.00 - 4.00 ] Estimated EF 30 % AV Mean PG 4 mmHg LVIDd 2D 6.70 cm [ 4.20 - 5.80 ] AV Peak Delfino 1.40 m/s [ 1.00 - 1.70 ] LVIDd MM 6.42 cm [ 4.20 - 5.80 ] AV Peak PG 8 mmHg LVIDs 2D 5.30 cm [ 2.50 - 4.00 ] AV VTI 28.99 cm LVIDs MM 5.48 cm [ 2.50 - 4.00 ] LVOT Diam 2.01 cm [ 1.70 - 2.10 ] LVPWd 2D 1.38 cm [ 0.60 - 1.00 ] LVOT Peak Delfino 1.11 m/s [ 0.70 - 1.10 ] LVPWd MM 1.14 cm [ 0.60 - 1.00 ] LVOT VTI 24.46 cm IVSd 2D 1.50 cm [ 0.60 - 1.00 ] MV E Peak Delfino 1.48 m/s [ 0.60 - 1.30 ] IVSd MM 1.30 cm [ 0.60 - 1.00 ] MV Decel Time 175 msec [ 104 - 258 ] LA Dimension MM 5.06 cm [ 3.00 - 4.00 ] PV Peak Delfino 1.09 m/s [ 0.40 - 0.80 ] AoR Diam MM 3.28 cm [ 3.10 - 3.70 ] TR Peak Delfino 2.99 m/s [ 1.00 - 2.80 ] LA Volume Index 60 cc/m2 [ 16 - 34 ] TR Peak PG 36 mmHg RVSP 44.00 mmHg [ 10.00 - 36.00 ] Lateral E` 0.10 m/s [ 0.10 - 0.15 ] E/E` 14 2D/MM Value Range Doppler Value Range - FINDINGS: Interpretation Site: Exam was interpreted at [facility]. Left Ventricle: Moderate enlargement of left ventricle cavity. Severe global left ventricular systolic dysfunction. Impaired diastolic relaxation Grade I. Ejection Fraction is visually estimated to be 30 %. Right Ventricle: Normal right ventricular size. Linear artifact in right ventricle suggestive of catheter(s), pacemaker lead(s), or ICD lead(s). Left Atrium: There is mild enlargement of left atrium. Right Atrium: The right atrium is normal in size. Linear artifact in right atrium suggestive of catheter(s), pacemaker lead(s), or ICD lead(s). Atrial Septum: Normal atrial septum. Mitral Valve: Normal appearance of the mitral valve. Moderate mitral valve regurgitation. Aortic Valve: Aortic cusps appear mildly sclerotic. Trileaflet aortic valve. Mild aortic valve regurgitation. Tricuspid Valve: Normal appearance of the tricuspid valve. Estimated peak RVSP is 44 mmHg. Mild tricuspid regurgitation. Pulmonic Valve: Normal appearance of the pulmonic valve. Pericardium: Normal pericardium with no significant pericardial effusion. Aorta: Normal aortic root. IVC: Normal size and normal respiratory collapse consistent with normal right atrial pressure (<5 mmHg). Pulmonary Artery: Normal pulmonary artery size. CONCLUSIONS: Moderate enlargement of left ventricle cavity. Severe global left ventricular systolic dysfunction. Impaired diastolic relaxation Grade I. Ejection Fraction is visually estimated to be 30 %. There is mild enlargement of left atrium. Normal appearance of the mitral valve. Moderate mitral valve regurgitation. Aortic cusps appear mildly sclerotic. Trileaflet aortic valve. Mild aortic valve regurgitation. Pacemaker leads noted. Electronically Signed By: Thomas Brown MD, [facility] 01/18/2025 7:27:37 AM CDT Procedure Note Thomas Brown MD - 01/18/2025 [facility] [address] [facility], [address], [place] [address] P:[phone] P:[phone] Echocardiographic Report Patient Name: UNIQUE FRANK H : 1940 Study Date: 01/17/2025 2:30:38 PM Gender: M Tech: Location: [facility] Ref Provider: DWAYNE FOWLER Height(Cm): 168 BSA: 1.85 Weight(Kg): 73.5 Heart Rate: 70 BP: 114 / 69 Quality: Good Order Provider: DWAYNE FOWLER PROCEDURES: Echocardiographic Report: Transthoracic echocardiogram with complete 2D, M-Mode, and color Dopplerexamination. INDICATIONS: I50.22 Chronic systolic (congestive) heart failure, I42.9 Cardiomyopathy,unspecified, and I34.0 Nonrheumatic mitral (valve) insufficiency. MEASUREMENTS: 2D/MM Value Range Doppler ValueRange EF Teich MM 30 % [ 52 - 72 ] MIKY Vmax 2.52cm2 [ 2.00 - 4.00 ] Estimated EF 30 % AV Mean PG 4mmHg LVIDd 2D 6.70 cm [ 4.20 - 5.80 ] AV Peak Delfino 1.40m/s [ 1.00 - 1.70 ] LVIDd MM 6.42 cm [ 4.20 - 5.80 ] AV Peak PG 8mmHg LVIDs 2D 5.30 cm [ 2.50 - 4.00 ] AV VTI 28.99cm LVIDs MM 5.48 cm [ 2.50 - 4.00 ] LVOT Diam 2.01 cm[ 1.70 - 2.10 ] LVPWd 2D 1.38 cm [ 0.60 - 1.00 ] LVOT Peak Delfino 1.11m/s [ 0.70 - 1.10 ] LVPWd MM 1.14 cm [ 0.60 - 1.00 ] LVOT VTI 24.46cm IVSd 2D 1.50 cm [ 0.60 - 1.00 ] MV E Peak Delfino 1.48m/s [ 0.60 - 1.30 ] IVSd MM 1.30 cm [ 0.60 - 1.00 ] MV Decel Time 175msec [ 104 - 258 ] LA Dimension MM 5.06 cm [ 3.00 - 4.00 ] PV Peak Delfino 1.09m/s [ 0.40 - 0.80 ] AoR Diam MM 3.28 cm [ 3.10 - 3.70 ] TR Peak Delfino 2.99m/s [ 1.00 - 2.80 ] LA Volume Index 60 cc/m2 [ 16 - 34 ] TR Peak PG 36mmHg RVSP 44.00 mmHg [ 10.00 - 36.00 ] Lateral E` 0.10 m/s [ 0.10 - 0.15 ] E/E` 14 2D/MM Value Range Doppler ValueRange - FINDINGS: Interpretation Site: Exam was interpreted at [facility]. Left Ventricle: Moderate enlargement of left ventricle cavity. Severe global leftventricular systolic dysfunction. Impaired diastolic relaxation Grade I. Ejection Fraction isvisually estimated to be 30 %. Right Ventricle: Normal right ventricular size. Linear artifact in right ventriclesuggestive of catheter(s), pacemaker lead(s), or ICD lead(s). Left Atrium: There is mild enlargement of left atrium. Right Atrium: The right atrium is normal in size. Linear artifact in right atriumsuggestive of catheter(s), pacemaker lead(s), or ICD lead(s). Atrial Septum: Normal atrial septum. Mitral Valve: Normal appearance of the mitral valve. Moderate mitral valveregurgitation. Aortic Valve: Aortic cusps appear mildly sclerotic. Trileaflet aortic valve. Mild aorticvalve regurgitation. Tricuspid Valve: Normal appearance of the tricuspid valve. Estimated peak RVSP is 44 mmHg.Mild tricuspid regurgitation. Pulmonic Valve: Normal appearance of the pulmonic valve. Pericardium: Normal pericardium with no significant pericardial effusion. Aorta: Normal aortic root. IVC: Normal size and normal respiratory collapse consistent with normal rightatrial pressure (<5 mmHg). Pulmonary Artery: Normal pulmonary artery size. CONCLUSIONS: Moderate enlargement of left ventricle cavity. Severe global leftventricular systolic dysfunction. Impaired diastolic relaxation Grade I. Ejection Fraction isvisually estimated to be 30 %. There is mild enlargement of left atrium. Normal appearance of the mitral valve. Moderate mitral valveregurgitation. Aortic cusps appear mildly sclerotic. Trileaflet aortic valve. Mild aorticvalve regurgitation. Pacemaker leads noted. Electronically Signed By: Thomas Brown MD, [facility] 01/18/2025 7:27:37 AM CDT us Dwayne Fowler MD CV ECHO PROCEDURES Final Result * US Vein Mapping Fistula Access, Bilateral (01/16/2025 9:58 AM CDT) Anatomical Region Laterality Modality Vascular Bilateral Ultrasound 01/16/2025 9:30 AM CDT Narrative 01/16/2025 6:14 PM CDT [facility] - Department of Vascular Surgery, Vascular Laboratory [address] [place] [address] Upper Extremity Vein Mapping Report Patient Name: UNIQUE FRANK : 1940 (84y 2m) Study Date: 01/16/2025 9:30:52 AM Gender: M Cloth Shader: Samantha MCNULTY Location: [facility] Provider: MOLINA JORDAN Quality: Adequate Order Provider: MOLINA JORDAN PROCEDURES: Mapping Report: Left Upper Extremity Vein Mapping. 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 MEASUREMENTS: Right Value Units Left Value Units Rt Axillary Vein Diameter 0.94 cm Lt Axillary Vein Diameter 0.59 cm Rt Prox Brachial Vein D. 1 0.42 cm Lt Prox Brachial Vein D. 1 0.60 cm Rt Prox Brachial Vein D. 2 0.69 cm Lt Prox Brachial Vein D. 2 0.35 cm Rt Mid Brachial Vein D. 1 0.34 cm Lt Mid Brachial Vein D. 1 0.52 cm Rt Mid Brachial Vein D. 2 0.54 cm Lt Mid Brachial Vein D. 2 Unable to locate cm Rt Dist Brachial Vein D. 1 0.32 cm Lt Dist Brachial Vein D. 1 0.51 cm Rt Dist Brachial Vein D. 2 0.26 cm Lt Dist Brachial Vein D. 2 Unable to locate cm Rt Cephalic Vein Zone 1 0.45 cm Lt Cephalic Vein Zone 1 0.45 cm Rt Cephalic Vein Zone 2 0.33 cm Lt Cephalic Vein Zone 2 0.34 cm Rt Cephalic Vein Zone 3 0.44 cm Lt Cephalic Vein Zone 3 0.35 cm Rt Cephalic Vein Zone 4 0.41 cm Lt Cephalic Vein Zone 4 0.33 cm Rt Cephalic Vein Zone 5 0.31 cm Lt Cephalic Vein Zone 5 0.27 cm Rt Cephalic Vein Zone 6 0.35 cm Lt Cephalic Vein Zone 6 0.21 cm Rt Cephalic Vein Zone 7 0.31 cm Lt Cephalic Vein Zone 7 0.24 cm Rt Basilic Vein Zone 1 Unable to locate cm Lt Basilic Vein Zone 1 Unable to locate cm Rt Basilic Vein Zone 2 0.65 cm Lt Basilic Vein Zone 2 0.41 cm Rt Basilic Vein Zone 3 0.50 cm Lt Basilic Vein Zone 3 0.36 cm Rt Basilic Vein Zone 4 0.37 cm Lt Basilic Vein Zone 4 0.32 cm Rt Basilic Vein Zone 5 0.22 cm Lt Basilic Vein Zone 5 0.27 cm Rt Basilic Vein Zone 6 Unable to locate cm Lt Basilic Vein Zone 6 0.23 cm Rt Basilic Vein Zone 7 Unable to locate cm Lt Basilic Vein Zone 7 0.21 cm Right Value Units Left Value Units FINDINGS: Performing Cloth Shader: Jazzmine Mcnulty RVT. Bilateral: Venous Doppler signals in the bilateral upper extremities are within normal limits for spontaneity and phasicity; normal response to compression maneuvers. Duplex imaging of bilateral cephalic and basilic veins reveals the cross-sectional measurements noted above. No evidence of superficial vein thrombus. CONCLUSIONS: 1. Duplex imaging of bilateral cephalic and basilic veins reveals the cross- sectional measurements noted above. No evidence of superficial vein thrombus. 2. No evidence of acute deep vein thrombosis bilaterally in the upper extremities. HISTORY: CKD, HTN, HLD, Cancer, CHF; Pacemaker on the left. PREVIOUS STUDIES: No previous studies for comparison. DISCLAIMER: Zone 1 = proximal arm; Zone 2 = mid arm; Zone 3 = distal arm; Zone 4 = ante- cubital; Zone 5 = proximal forearm; Zone 6 = mid forearm; Zone 7 = distal forearm. All measurements are obtained with a tourniquet placed on the upper arm unless it is contraindicated and noted in the report. The study images and the final report will be retained in the patient chart by the Vascular Laboratory for the legally required time period. This chart constitutes the legal record of any testing performed. ATTESTATION: I have reviewed and interpreted the pertinent images and measurements of this study. I attest to the conclusions in the final report that is provided above. Electronically Signed By: Varghese Ryan MD [facility] [phone] 01/16/2025 6:14:30 PM CDT Procedure Note Varghese Ryan MD - 01/16/2025 [facility] - Department of Vascular Surgery,Vascular Laboratory [address] [place] [address] Upper Extremity Vein Mapping Report Patient Name: UNIQUE FRANK : 1940 (84y 2m) Study Date: 01/16/2025 9:30:52 AM Gender: M Cloth Shader: Samantha MCNULTY Location: [facility] Provider: MOLINA JORDAN Quality: Adequate Order Provider: MOLINA JORDAN PROCEDURES: Mapping Report: Left Upper Extremity Vein Mapping. 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 MEASUREMENTS: Right Value Units Left Value Units Rt Axillary Vein Diameter 0.94 cm Lt Axillary Vein Diameter 0.59 cm Rt Prox Brachial Vein D. 1 0.42 cm Lt Prox Brachial Vein D. 1 0.60 cm Rt Prox Brachial Vein D. 2 0.69 cm Lt Prox Brachial Vein D. 2 0.35 cm Rt Mid Brachial Vein D. 1 0.34 cm Lt Mid Brachial Vein D. 1 0.52 cm Rt Mid Brachial Vein D. 2 0.54 cm Lt Mid Brachial Vein D. 2 Unable tolocate cm Rt Dist Brachial Vein D. 1 0.32 cm Lt Dist Brachial Vein D. 1 0.51 cm Rt Dist Brachial Vein D. 2 0.26 cm Lt Dist Brachial Vein D. 2 Unable tolocate cm Rt Cephalic Vein Zone 1 0.45 cm Lt Cephalic Vein Zone 1 0.45 cm Rt Cephalic Vein Zone 2 0.33 cm Lt Cephalic Vein Zone 2 0.34 cm Rt Cephalic Vein Zone 3 0.44 cm Lt Cephalic Vein Zone 3 0.35 cm Rt Cephalic Vein Zone 4 0.41 cm Lt Cephalic Vein Zone 4 0.33 cm Rt Cephalic Vein Zone 5 0.31 cm Lt Cephalic Vein Zone 5 0.27 cm Rt Cephalic Vein Zone 6 0.35 cm Lt Cephalic Vein Zone 6 0.21 cm Rt Cephalic Vein Zone 7 0.31 cm Lt Cephalic Vein Zone 7 0.24 cm Rt Basilic Vein Zone 1 Unable to locate cm Lt Basilic Vein Zone 1 Unableto locate cm Rt Basilic Vein Zone 2 0.65 cm Lt Basilic Vein Zone 2 0.41 cm Rt Basilic Vein Zone 3 0.50 cm Lt Basilic Vein Zone 3 0.36 cm Rt Basilic Vein Zone 4 0.37 cm Lt Basilic Vein Zone 4 0.32 cm Rt Basilic Vein Zone 5 0.22 cm Lt Basilic Vein Zone 5 0.27 cm Rt Basilic Vein Zone 6 Unable to locate cm Lt Basilic Vein Zone 6 0.23cm Rt Basilic Vein Zone 7 Unable to locate cm Lt Basilic Vein Zone 7 0.21cm Right Value Units Left Value Units FINDINGS: Performing Cloth Shader: Jazzmine Mcnulty RVT. Bilateral: Venous Doppler signals in the bilateral upper extremities arewithin normal limits for spontaneity and phasicity; normal response to compressionmaneuvers. Duplex imaging of bilateral cephalic and basilic veins reveals thecross-sectional measurements noted above. No evidence of superficial vein thrombus. CONCLUSIONS: 1. Duplex imaging of bilateral cephalic and basilic veins reveals thecross- sectional measurements noted above. No evidence of superficial vein thrombus. 2. No evidence of acute deep vein thrombosis bilaterally in the upperextremities. HISTORY: CKD, HTN, HLD, Cancer, CHF; Pacemaker on the left. PREVIOUS STUDIES: No previous studies for comparison. DISCLAIMER: Zone 1 = proximal arm; Zone 2 = mid arm; Zone 3 = distal arm; Zone 4 =ante- cubital; Zone 5 = proximal forearm; Zone 6 = mid forearm; Zone 7 = distal forearm. All measurements are obtained with a tourniquet placed on the upper armunless it is contraindicated and noted in the report. The study images and the final report will be retained in the patientchart by the Vascular Laboratory for the legally required time period. This chartconstitutes the legal record of any testing performed. ATTESTATION: I have reviewed and interpreted the pertinent images and measurements ofthis study. I attest to the conclusions in the final report that is provided above. Electronically Signed By: Varghese Ryan MD [facility] [phone] 01/16/2025 6:14:30 PM CDT us Molina Jordan MD IM US PROCEDURES Final Resul t * Urinalysis reflex to microscopic and culture Urine (12/04/2024 5:14 PM MANAGER PHP) Color, ur Yellow Yellow Comment:Testing performed by : [facility], [address] [place] [address] Clarity, ur Clear Clear ELIDA HENRIQUEZ Comment:Testing performed by : [facility], [address] [place] [address] Specific gravity, ur 1.010 1.003 - 1.030 ELIDA HENRIQUEZ Comment:Testing performed by : [facility], [address], [place] [address] pH, urine 6.0 ELIDA HENRIQUEZ Comment: Interpretive Data U rine pH is affected by diet, medications, systemic acid-base disturbances, and renal tubular function. pH may affect urinary stone formation. For example, urine pH below 6.0 may help reduce the tendency for calcium phosphate stones and pH greater than 6.0 may reduce the tendency for uric acid stone formation. Source: [facility] Current Interpretive Data was last revised on 2017 Testing performed by: [facility], [address], [place] [address] Protein, ur ql Negative Negative CERNER BJWCH Comment:Testing performed by : [facility], [address], [place] [address] Glucose, ur ql Negative Negative CERNER BJWCH Comment:Testing performed by : [facility], [address], [place] [address] Ketones, ur Negative Negative CERNER BJWCH Comment:Testing performed by : [facility], [address], [place] [address] Bilirubin, ur Negative Negative CERNER BJWCH Comment:Testing performed by : [facility], [address], [place] [address] Blood, ur Negative Negative CERNER BJWCH Comment:Testing performed by : [facility], [address], [place] [address] Urobilinogen, ur <2.0 <2.0 mg/dL CERNER BJWCH Comment:Testing performed by : [facility], [address], [place] [address] Nitrite, ur Negative Negative CERNER BJWCH Comment:Testing performed by : [facility], [address], [place] [address] Leukocyte esterase, ur Negative Negative CERNER BJWCH Comment:Testing performed by : [facility], [address], [place] [address] UA reflex comment Reflex conditions for microscopic UA and culture not met. CERNER BJWCH Comment:Testing performed by : [facility], [address], [place] [address] Urine 12/04/2024 5:14 PM MANAGER PHP 12/04/2024 5:15 PM MANAGER PHP Yancy Loera MD LAB MICROBIOLOGY - GENERAL ORDERABLES Final Result ELIDA HOROWITZWCH [address] [facility]. Department [place] [address] * (ABNORMAL) Protein / creatinine ratio, urine, random (12/04/2024 5:14 PM MANAGER PHP) Pathologist [facility] Protein, ur, quant 10.2 mg/dL Comment: Interpretive Data No reference range established. Current interpretive data was last revised 2019. Testing performed by: [facility], [address] [facility] [place] [address] Creatinine Ur 28.6 mg/dL ELIDA HENRIQUEZ Comment: Interpretive Data No reference range established. Current interpretive data was last revised 2019. Testing performed by: [facility], [address] [place] [address] Protein/creatinin e ratio 356.4(H) 0.0 - 180.0 mg/g CR ELIDA HENRIQUEZ Comment:Testing performed by : [facility], [address] [facility] [place] [address] Urine 12/04/2024 5:14 PM MANAGER PHP 12/04/2024 5:15 PM MANAGER PHP Yancy Loera MD LAB URINE ORDERABLES Final Result ELIDA BJWCH [address] [facility]. Department [place] [address] * Anti-double stranded DNA abs (12/04/2024 3:59 PM MANAGER PHP) Pathologist [facility] dsDNA Ab <1.0 <=4.0 IUnits/mL Comment: Interpretive Data Negative: < or = 4 IUnits/mL Indeterminate: 5 - 9 IUnits/mL Positive: > or = 10 IUnits/mL Current interpretive data was last revised on 2017. Testing performed by: [facility], [address] [place]., [address] Blood 12/04/2024 3:59 PM MANAGER PHP 12/04/2024 6:42 PM MANAGER PHP Yancy Loera MD LAB BLOOD ORDERABLES Final Result Performing Organization Address [facility] Co de Phone Number ELIDA BJWCH [address] [address] [facility] [place] [address] * SCL 70 abs (12/04/2024 3:59 PM MANAGER PHP) Anti-Scl70, IgG <0.2 <=0.9 Ab Index Comment: Interpretive Data Negative: < 1.0 Ab Index Positive: > or = 1.0 Ab Index Current interpretive data was last revised on 2017. Testing performed by: [facility], [address] [place]., [address] Blood 12/04/2024 3:59 PM MANAGER PHP 12/04/2024 6:54 PM MANAGER PHP Yancy Loera MD LAB BLOOD ORDERABLES Final Result Performing Organization Address [facility] Co de Phone Number ELIDA BJWCH [address] [address] [facility] [place] [address] * (ABNORMAL) eGFR (12/04/2024 3:59 PM MANAGER PHP) eGFR 19(L) >=60 mL/min/1. 73 m2 Comment: Interpretive Data Reference Interval Normal >/= 90 mL/min/1.73m2 Mildly decreased* 60 - 89 mL/min/1.73m2 Mildly to moderately decreased 45 - 59 mL/min/1.73m2 Moderately to severely decreased 30 - 44 mL/min/1.73m2 Severely decreased 15 - 29 mL/min/1.73m2 Kidney Failure < 15 mL/min/1.73m2 *Relative to young adult level Estimated glomerular filtration rate is determined by the 2020 CKD-EPI equation recommended by the National Kidney Foundation (A Unifying Approach to GFR Estimation: Recommendations of the NKF-ASK Task Force on Reassessing the Inclusion of Race in Diagnosing Kidney Disease, JASN 2020). The CKD-EPI equation should not be used for patients with unstable renal function and has not been validated in children and those over 70. Current interpretive data was last reviewed 2021. Testing performed by: [facility], [address] [place] [address] Blood 12/04/2024 3:59 PM MANAGER PHP 12/04/2024 4:35 PM MANAGER PHP Yancy Loera MD LAB BLOOD ORDERABLES Final Result [facility] [address] Department [place] [address] * Differential, auto (12/04/2024 3:59 PM MANAGER PHP) Neutrophil abs 3.7 1.5 - 6.5 K/cumm Comment:Testing performed by : [facility], [facility], [address] [place] [address] Imm gran abs 0.1 0.0 - 0.1 K/cumm ELIDA BJW Comment:Testing performed by : [facility] 2, [address] [place] [address] Lymphocyte abs 1.2 0.8 - 3.3 K/cumm ELIDA BJWCH Comment:Testing performed by : [facility], [facility], [address] [place] [address] Monocyte abs 0.6 0.2 - 0.8 K/cumm ELIDA BJWCH Comment:Testing performed by : [facility] 2, [address] [place] [address] Eosinophil abs 0.0 0.0 - 0.5 K/cumm ELIDA BJWCH Comment:Testing performed by : [facility] 2, [address] [place] [address] Basophil abs 0.0 0.0 - 0.1 K/cumm CERVALENTINE BJWCH Comment:Testing performed by : [facility] 2, [address] [place] [address] Neutrophil pct 65.3 % CERNER BJWCH Comment: Interpretive Data Percent cell count reference ranges are not reported, since discordance with absolute values may lead to misinterpretation of CBC data. Current Interpretive Data was last revised on 2018. Testing performed by: [facility], [facility], [address] [place] [address] Imm gran pct 2.3 % CERNER BJWCH Comment: Interpretive Data Percent cell count reference ranges are not reported, since discordance with absolute values may lead to misinterpretation of CBC data. Current Interpretive Data was last revised on 2018. Testing performed by: [facility], [facility], [address] [place] [address] Lymphocyte pct 21.7 % CERNER BJWCH Comment: Interpretive Data Percent cell count reference ranges are not reported, since discordance with absolute values may lead to misinterpretation of CBC data. Current Interpretive Data was last revised on 2018. Testing performed by: [facility], [facility], [address] [place] [address] Monocyte pct 10.2 % CERNER BJWCH Comment: Interpretive Data Percent cell count reference ranges are not reported, since discordance with absolute values may lead to misinterpretation of CBC data. Current Interpretive Data was last revised on 2018. Testing performed by: [facility] 2, [address] [place] [address] Eosinophil pct 0.0 % CERNER BJWCH Comment: Interpretive Data Percent cell count reference ranges are not reported, since discordance with absolute values may lead to misinterpretation of CBC data. Current Interpretive Data was last revised on 2018. Testing performed by: [facility], [facility], [address] [place] [address] Basophil pct 0.5 % CERNER BJWCH Comment: Interpretive Data Percent cell count reference ranges are not reported, since discordance with absolute values may lead to misinterpretation of CBC data. Current Interpretive Data was last revised on 2018. Testing performed by: [facility], [facility], [address], [place] [address] Blood 12/04/2024 3:59 PM MANAGER PHP 12/04/2024 4:01 PM MANAGER PHP Yancy Loera MD LAB BLOOD ORDERABLES Final Result Performing Organization Address [facility] Co de Phone Number [facility] [address] [facility] [place] [address] * Lozada abs (12/04/2024 3:59 PM MANAGER PHP) Anti-NATALIIA, SM <0.2 <=0.9 Ab Index Comment: Interpretive Data Negative: < 1.0 Ab Index Positive: > or = 1.0 Ab Index Current interpretive data was last revised on 2017. Testing performed by: [facility], [address] [place] [address]., [address] Blood 12/04/2024 3:59 PM MANAGER PHP 12/04/2024 6:54 PM MANAGER PHP Yancy Loera MD LAB BLOOD ORDERABLES Final Result Performing Organization Address [facility] Co de Phone Number [facility] [address] [facility] [place] [address] * TECHNICAL ASSISTANT abs (12/04/2024 3:59 PM MANAGER PHP) TECHNICAL ASSISTANT ab <0.2 <=0.9 Ab Index Comment: Interpretive Data Negative: < 1.0 Ab Index Positive: > or = 1.0 Ab Index Current interpretive data was last revised on 2017. Testing performed by: [facility], [address] [place] [address]., [address] Blood 12/04/2024 3:59 PM MANAGER PHP 12/04/2024 6:54 PM MANAGER PHP Yancy Loera MD LAB BLOOD ORDERABLES Final Result ELIDA HOROWITZWCH [address] [place] [employer] [address] * C4 complement (12/04/2024 3:59 PM MANAGER PHP) Complement C4 18 10 - 40 mg/dL Comment:Testing performed by : [facility], [facility], [place]., [address] Blood 12/04/2024 3:59 PM MANAGER PHP 12/04/2024 8:23 PM MANAGER PHP Yancy Loera MD LAB BLOOD ORDERABLES Final Result Performing Organization Address [facility] Co de Phone Number ELIDA HOROWITZWCH [address] [address] [place] [employer] [place] [address] * (ABNORMAL) NATALIIA ab eval w/reflex (12/04/2024 3:59 PM MANAGER PHP) Pathologist [facility] NATALIIA ab Positive( A) Negative Comment: Interpretive Data Positive Screens will be reflexed to specific testing for Antibodies against the following antigens: Justina-1 Ab, TECHNICAL ASSISTANT Ab, Scl-70 Ab, Lozada Ab, SS-A/Ro Ab, and SS- B/La Ab. Further testing for dsDNA, Centromere, or Ribosomal P antibodies is suggested in patient with a positive screen and negative specific antibodies. Current interpretive data was last revised on 2023. Testing performed by: [facility], [address] [place]., [address] Blood 12/04/2024 3:59 PM MANAGER PHP 12/04/2024 6:42 PM MANAGER PHP Yancy Loera MD LAB BLOOD ORDERABLES Final Result Performing Organization Address [facility] Co de Phone Number ELIDA HOROWITZWCH [address] [address] [facility] [employer] [place] [address] * Justina-1 antibody (12/04/2024 3:59 PM MANAGER PHP) Pathologist [facility] Justina 1 Antibody, IgG <0.2 <=0.9 Ab Index Comment: Interpretive Data Negative: < 1.0 Ab Index Positive: > or = 1.0 Ab Index Current interpretive data was last revised on 2017. Testing performed by: [facility], [address] [place] [address] Blood 12/04/2024 3:59 PM MANAGER PHP 12/04/2024 6:54 PM MANAGER PHP us Yancy Loera MD LAB BLOOD ORDERABLES Final Result [facility] [address] [facility] Department [place] [address] * (ABNORMAL) CBC with auto differential (12/04/2024 3:59 PM MANAGER PHP) [facility] WBC 5.6 3.8 - 9.9 K/cumm Comment:Testing performed by : [facility], [facility], [address] [place] [address] Hgb 9.6(L) 13.0 - 17.5 g/dL [facility] Comment:Testing performed by : [facility], [facility], [address] [place] [address] Hct 30.0(L) 38.9 - 50.3 % [facility] Comment:Testing performed by : [facility], [facility], [address] [place] [address] Plt 199 150 - 400 K/cumm EL[facility] Comment:Testing performed by : [facility] 2, [address] [place] [address] MPV 9.5 9.1 - 12.3 fL ELIDA HOROWITZW Comment:Testing performed by : [facility], [facility], [address] [place] [address] RBC 2.86(L) 4.30 - 5.80 M/cumm ELIDA BJWMEHDI Comment:Testing performed by : [facility], [facility], [address] [place] [address] MCV 105(H) 81 - 96 fL ELIDA HENRIQUEZ Comment:Testing performed by : [facility], [facility], [address] [place] [address] MCH 33.6(H) 27.1 - 33.3 pg ELIDA HENRIQUEZ Comment:Testing performed by : [facility], [facility], [address] [place] [address] MCHC 32.0(L) 32.3 - 35.7 g/dL ELIDA HENRIQUEZ Comment:Testing performed by : [facility], [facility], [address] [place] [address] RDW CV 13.7 11.1 - 14.9 % ELIDA HENRIQUEZ Comment:Testing performed by : [facility], [facility], [address] [place] [address] RDW SD 53.0(H) 35.7 - 48.1 fL ELIDA HENRIQUEZ Comment:Testing performed by : [facility], [facility], [address] [place] [address] Blood 12/04/2024 3:59 PM MANAGER PHP 12/04/2024 4:01 PM MANAGER PHP Yancy Loera MD LAB BLOOD ORDERABLES Final Result Performing Organization Address City/State/[facility] Co de Phone Number [facility] [address] [facility] Department [place] [address] * Sjogren's syndrome B ab (12/04/2024 3:59 PM MANAGER PHP) Anti-NATALIIA, SS-B 0.3 <=0.9 Ab Index Comment: Interpretive Data Negative: < 1.0 Ab Index Positive: > or = 1.0 Ab Index Current interpretive data was last revised on 2017. Testing performed by: [facility], [address] [place] [address] Blood 12/04/2024 3:59 PM MANAGER PHP 12/04/2024 6:54 PM MANAGER PHP Yancy Loera MD LAB BLOOD ORDERABLES Final Result [facility] [address] [facility]. [place] [facility] [place] [address] * (ABNORMAL) Sjogren's syndrome A ab (12/04/2024 3:59 PM MANAGER PHP) Pathologist [facility] Anti-NATALIIA, SS-A >8.0(H) <=0.9 Ab Index Comment: Interpretive Data Negative: < 1.0 Ab Index Positive: > or = 1.0 Ab Index Current interpretive data was last revised on 2017. Testing performed by: [facility], [address] [place]., [address] Blood 12/04/2024 3:59 PM MANAGER PHP 12/04/2024 6:54 PM MANAGER PHP Yanyc Loera MD LAB BLOOD ORDERABLES Final Result Performing Organization Address [facility] Co de Phone Number [facility] [address] [facility] [place] [employer] [place] [address] * Erythrocyte sedimentation rate (12/04/2024 3:59 PM MANAGER PHP) Pathologist [facility] Erythrocyte sedimentation rate 17 1 - 20 mm/hr Comment:Testing performed by : [facility], [address] [place] [address] Blood 12/04/2024 3:59 PM MANAGER PHP 12/04/2024 4:35 PM MANAGER PHP Yancy Loera MD LAB BLOOD ORDERABLES Final Result [facility] [address] [facility]. [place] [employer] [place] [address] * C3 complement (12/04/2024 3:59 PM MANAGER PHP) Complement C3 134 90 - 180 mg/dL Comment:Testing performed by : [facility], [facility], [place]., [address] Blood 12/04/2024 3:59 PM MANAGER PHP 12/04/2024 8:23 PM MANAGER PHP Yancy Loera MD LAB BLOOD ORDERABLES Final Result [facility] [address] [place] [address] * CRP (acute phase) (12/04/2024 3:59 PM MANAGER PHP) Pathologist [facility] CRP <3.0 <=10.0 mg/L Comment:Testing performed by : [facility], [address] [place] [address] Blood 12/04/2024 3:59 PM MANAGER PHP 12/04/2024 4:35 PM MANAGER PHP Yancy Loera MD LAB BLOOD ORDERABLES Final Result [facility] [address] Department [place] [address] * (ABNORMAL) Comprehensive metabolic panel (12/04/2024 3:59 PM MANAGER PHP) Pathologist [facility] Sodium 141 135 - 145 mmol/L Comment:Testing performed by : [facility], [address] [place], [place] [address] Potassium, pl 4.8 3.3 - 4.9 mmol/L [facility] Comment:Testing performed by : [facility], [address] [place], [place] [address] Chloride 108 97 - 110 mmol/L [facility] Comment:Testing performed by : [facility], [address], [place] [address] CO2 19(L) 22 - 32 mmol/L [facility] Comment:Testing performed by : [facility], [address], [place] [address] Anion gap 14 2 - 15 mmol/L [facility] Comment:Testing performed by : [facility], [address], [place] [address] BUN 58(H) 6 - 25 mg/dL [facility] Comment:Testing performed by : [facility], [address], [place] [address] Creatinine 3.12(H) 0.80 - 1.30 mg/dL [facility] Comment:Testing performed by : [facility], [address], [place] [address] Glucose 74 70 - 199 mg/dL [facility] Comment: Interpretive Data Fasting glucose >/= 126 mg/dl is diagnostic for diabetes. Fasting is defined as no caloric intake for at least 8 hours. Fasting glucose between 100 mg/dl to 125 mg/dl is diagnostic of prediabetes. In a patient with classic symptoms of hyperglycemia or hyperglycemic crisis, a random glucose >/= 200 mg/dl is diagnostic for diabetes. In the absence of unequivocal hyperglycemia, results should be confirmed by repeat testing. The classification and Diagnosis of Diabetes Diabetes Care 2021; 46: S19-S40. Current interpretive data was last revised 2022. Testing performed by: [facility], [address], [place] [address] Calcium 9.5 8.5 - 10.3 mg/dL [facility] Comment:Testing performed by : [facility], [address], [place] [address] Bilirubin, total 0.3 0.1 - 1.2 mg/dL [facility] Comment:Testing performed by : [facility], [address], [place] [address] Protein, pl 6.3(L) 6.5 - 8.5 g/dL [facility] Comment:Testing performed by : [facility], [address], [place] [address] Albumin 3.6 3.5 - 5.0 g/dL [facility] Comment:Testing performed by : [facility], [address], [place] [address] Alk phos 68 40 - 130 Units/L [facility] Comment:Testing performed by : [facility], [address], [place] [address] ALT 34 7 - 55 Units/L [facility] Comment:Testing performed by : [facility], [address], [place] [address] AST 32 10 - 50 Units/L [facility] Comment:Testing performed by : [facility], [address] [place] [address] Blood 12/04/2024 3:59 PM MANAGER PHP 12/04/2024 4:35 PM MANAGER PHP Yancy Loera MD LAB BLOOD ORDERABLES Final Result [facility] [address] [place] Department [place] [address] * CT Chest WO Contrast (12/01/2024 10:07 AM MANAGER PHP) Anatomical Region Laterality Modality Body N/A Computed Tomogra phy 12/04/2024 1:53 PM MANAGER PHP Narrative 12/04/2024 2:30 PM MANAGER PHP EXAM DESCRIPTION: CT CHEST WO CONTRAST REASON FOR STUDY: Pulmonary nodule Nodule FU; pt has no current complaints TECHNIQUE: CT scan of the chest performed without intravenous contrast using helical scanning technique. Reconstructed coronal and sagittal MPR images reviewed. All images stored on PACS. Automated exposure control was used as a dose optimization technique for this examination. COMPARISON: CT chest 10/15/2024 FINDINGS: The sensitivity for detection of solid visceral lesions is diminished without the use of intravenous contrast. LUNGS: Stable 6 mm ground-glass nodule in the right apex (4/61), 3 mm nodule in the superior segment of the right lower lobe (4/213). No new or enlarging pulmonary nodule. No pneumonia. PLEURA: Small bilateral pleural effusions. No pneumothorax MEDIASTINUM/ALPESH: No identified masses or abnormal nodes. HEART: Heart size is normal with small pericardial effusion. 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 No aneurysms of the aorta. AXILLA: No adenopathy. CHEST WALL: No masses. No subcutaneous air. HARDWARE/LINES/TUBES: None. UPPER ABDOMEN: No significant abnormality. MUSCULOSKELETAL: No significant abnormality. OTHER: No other significant abnormality. IMPRESSION: Stable bilateral pulmonary nodules. No new or enlarging pulmonary nodule. New small bilateral pleural effusions and bibasilar atelectasis. THIS IS AN ELECTRONICALLY VERIFIED FINAL REPORT 12/04/2024 2:30 PM - Electronically signed by Carmela Hsieh M.D. FT: FT Report ID: [id number] [place] Location: [place] [address] Procedure Note Carmela Rodriguez MD - 12/04/2024 EXAM DESCRIPTION: CT CHEST WO CONTRAST REASON FOR STUDY: Pulmonary nodule Nodule FU; pt has no current complaints TECHNIQUE: CT scan of the chest performed without intravenous contrastusing helical scanning technique. Reconstructed coronal and sagittal MPR images reviewed. All images stored on PACS. Automated exposure control was usedas a dose optimization technique for this examination. COMPARISON: CT chest 10/15/2024 FINDINGS: The sensitivity for detection of solid visceral lesions is diminished without the use of intravenous contrast. LUNGS: Stable 6 mm ground-glass nodule in the right apex (4/61), 3 mmnodule in the superior segment of the right lower lobe (4/213). No new orenlarging pulmonary nodule. No pneumonia. PLEURA: Small bilateral pleural effusions. No pneumothorax MEDIASTINUM/ALPESH: No identified masses or abnormal nodes. HEART: Heart size is normal with small pericardial effusion. 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 No aneurysms of the aorta. AXILLA: No adenopathy. CHEST WALL: No masses. No subcutaneous air. HARDWARE/LINES/TUBES: None. UPPER ABDOMEN: No significant abnormality. MUSCULOSKELETAL: No significant abnormality. OTHER: No other significant abnormality. IMPRESSION: Stable bilateral pulmonary nodules. No new or enlargingpulmonary nodule. New small bilateral pleural effusions and bibasilar atelectasis. THIS IS AN ELECTRONICALLY VERIFIED FINAL REPORT 12/04/2024 2:30 PM - Electronically signed by Carmela Hsieh M.D. FT: FT Report ID: [id number] [place] Location: [id number] us Pedro Pablo Sue MD IMG CT PROCEDURES Final Res ult * Cytology (11/26/2024 1:01 PM MANAGER PHP) Fluid (Pancreas (Cytology)) 11/26/2024 1:01 PM MANAGER PHP Narrative PATHOLOGY [facility] - 12/02/2024 1:29 PM MANAGER PHP [place] [address] Tele: Nadine Sun MD - Delivery Merchandiser Note to Patients: This report may contain a detailed description of human tissue sent by a health care provider to the laboratory for pathologic evaluation. The content of this report is essential for diagnosis and may provide important critical findings. This information may be unfamiliar to patients to review without a medical professional present. It is advised that the patient review this report in the presence of a health care provider who can answer questions and explain the details. CYTOLOGY REPORT Patient Name: UNIQUE FRANK Address: [address] [place] [address] , [place] [address] Gender: M : 1940 (Age: 84) Service: Gastro Location: [facility] Hospital #: [id number] Patient Type [facility] SAME DAY SURGERY Taken: 11/26/2024 Reported: 12/02/2024 Physician(s): Dr. Marv Kaminski M.D. Vel F. Schueller, M.D. Yoon Gris, SOUND MIXER FINAL DIAGNOSIS: Pancreas, cyst, cytospin and cell block, FNA: - Atypical epithelial proliferation with neuroendocrine features (see comment) as11/28/2024 15:56 Report Reviewed and Electronically Signed By Avinash Ricardo M.D. 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 Clinical correlation is recommended. SPECIMEN TYPE: A: PANCREAS CYST FNA CLINICAL DIAGNOSIS AND HISTORY: Pancreatic cyst on MRI. Upper EUS examination shows anechoic lesion suggestive of a few cysts identified in the pancreas, the largest lesion measures 1.3 cm. GROSS DESCRIPTION: Received in CytoRich Red in a container labeled Unique Frank and Pancreas cyst FNA are 60 ml of clear red fluid with red flecks. Submitted for two Pap- stained cytospins. Cell block A 1 is examined. MICROSCOPIC DESCRIPTION: Cytospin slides and cell block sections are cellular and contains loosely cohesive clusters of uniform appearing epithelioid cells without significant cytologic atypia. Necrosis is not evident. Mitotic activity is not readily evident. Immunostains are employed with appropriate control for further evaluation. Cytokeratin cam 5.2, synaptophysin, and chromogranin are positive. Ki 67 highlights rare scattered cells and labeling index is estimated to be less than 3% within current sample. Clerical Data Follows A; 11396, 73576`, 36712, 31370(2), 24553 REPORT IMAGES AND/OR SCANNED DOCUMENTS ONLY VIEWABLE IN PDF FORMAT The immunohistochemical test(s) cited in this report, if any, was developed and its performance characteristics determined by [facility] Pathology Department. It has not been cleared or approved by the U.S. Food and Drug Administration. The FDA has determined that such clearance or approval is not necessary. This test is used for clinical purposes. It should not be regarded as investigational or for research. [facility] Laboratory is certified under the Clinical Laboratory Improvement Amendments of 1988 (CLIA) as qualified to perform high complexity testing. Immunostains were performed on formalin-fixed paraffin embedded tissue using a polymer diaminobenzidine chromogen detection system. Antibodies used may include clone 1D5 (mouse monoclonal, estrogen receptor), clone [id number] (mouse monoclonal progesterone receptor), MIB-1 (mouse monoclonal, Ki- 67), and CD117 (rabbit polyclonal, c-kit). In the event that immunohistochemistry or special stains have been performed, attending physician has confirmed appropriateness of controls. Frozen section, operating room consultation, gross examination and dissection, and case sign out may have been performed in part or completely in the following laboratories: [facility], [facility], [place], [place] [address] [place] [address], [address], [place] [address]. us Marv Kaminski MD LAB CYTOLOGY ORDERABLES Final Result PATHOLOGY [facility] Laboratory Receiving [address] [place] [address] * Upper EUS (11/26/2024 11:36 AM MANAGER PHP) Anatomical Region Laterality Modality Other Narrative Procedure Note Marv Kaminski MD - 11/26/2024 11:36 AM CST ENDOSCOPY LAB Patient Name: Unique Frank Procedure Date: 11/26/2024 11:36 AM Admit Type: Outpatient Room: [facility] Date of : 1940 Instrument Name: [id number] Gender: Male Note Status: Finalized Procedure: Upper EUS Indications: Pancreatic cyst on MRI Providers: Marv Kaminski M.D. Referring MD: Yoon Landry F.N.PFreeman, Vel Gilliam M.D. Medicines: Monitored Anesthesia Care, Rocephin 2 g IV Complications: No immediate complications. Estimated blood loss: Minimal. Estimated Blood Loss: Estimated blood loss was minimal. Procedure: The risks, benefits and alternatives were discussed and informed consent was obtained. TheEndosonoscope was introduced through the mouth, and advanced tothe third part of duodenum The upper EUS wasaccomplished without difficulty. The patient tolerated the procedure well. Findings: ENDOSCOPIC FINDING: : A small hiatal hernia was present. No gross lesions were noted in the stomach. The examined duodenum was normal. ENDOSONOGRAPHIC FINDING: : The region of the celiac plexus and celiac ganglia was visualized and showed no sign of significant endosonographic abnormality. Thevascular anatomy of the region was normal. Pancreatic parenchymal abnormalities were noted in the entirepancreas. These consisted of atrophy. The pancreatic duct had a dilated endosonographic appearance in the pancreatic head. The pancreatic duct measured up to 5 mm indiameter. Anechoic lesions suggestive of a few cysts were identified in the pancreatic head, genu of the pancreas, pancreatic body, pancreatictail and uncinate process of the pancreas. The largest lesion measured 13mm by 8 mm in maximal cross-sectional diameter at the uncinate. Therewas no associated mass. Fine needle aspiration for cytology was performed from a cyst at the body tail which showed slightly thick wall. The larger head and uncinate were not sampled as the ducts were in thepath of the needle. Color Doppler imaging was utilized prior to needle puncture to confirm a lack of significant vascular structures withinthe needle path. One pass was made with the 22 gauge needle using a transgastric approach. A stylet was used. The cyst collapsed and itdid not yield any fluid. A preliminary cytologic examination was not performed. Final cytology results are pending. There was no sign of significant endosonographic abnormality in the common bile duct. The maximum diameter of the duct was 6 mm. An unremarkable gallbladder was identified. There was no sign of significant endosonographic abnormality in the ampulla. No pathologic lymphadenopathy and no masses wereidentified. Impression: - A few cystic lesions were seen in the pancreatic head, genu of the pancreas, pancreatic body, pancreatic tail and uncinate process of thepancreas. Tissue was obtained from this exam, and results are pending. 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 Fine needle aspiration performed. Recommendation: - The patient will be observed post-procedure,until all discharge criteria are met. - Full liquid diet today. - Await cytology results - MRI of pancreas with contrast in a year for surveillance of the cysts. - Return to referring physician as previously scheduled. - The findings and recommendations were discussedwith the patient and their family. Attending Participation: I personally performed the entire procedure. Electronically signed by Marv Kaminski MD Marv Kaminski M.D. 11/26/2024 1:17:29 PM This document was signed electronically. Number of Addenda: 0 Note Initiated On: 11/26/2024 11:36 AM Scope In: Scope Out: Marv Kaminski MD ENDOSCOPY PROCEDURES Final Re sult from Last [address] [place] [address] [facility] [place] [address] [facility] Advance Directives For more information, please contact: [phone] * Full Code (Latest Code Status on File) Date Activated Date Inactivated Comments 11/26/2024 11:44 AM 11/26/2024 6:45 PM * Full Code Date Activated Date Inactivated Comments 12/12/2023 3:26 PM 12/13/2023 7:42 PM * Full Code Date Activated Date Inactivated Comments 04/20/2019 9:05 AM 04/20/2019 2:46 PM * Full Code Date Activated Date Inactivated Comments 04/20/2019 9:04 AM 04/20/2019 9:05 AM Care Teams Senior Piping Designer Relationship Specialty Start Date End Date Vel Gilliam MD [address] [address] PCP - General Family Medicine 11/07/24 Fina Todd MD [employer] Dermatology 03/05/19 Quintin Downey MD Consulting Physician Nephrology 03/06/19 Bipin Wetzel MD Referring Physician Cardiovascular Disease 04/08/20 Yancy Loera MD [address] [facility] [address] [place], [place] [id number] Referring Physician Rheumatology 04/08/20 Dwayne Hercules MD [address] [place] [address] Consulting Physician Hematology and Oncology 09/30/20 Dwayne Hercules MD [address] [place] [address] Medical Oncologist/Hematologis t Hematology and Oncology 09/30/20 Nigel Elizalde MD [address] [place] [address] Consulting Physician Urology 11/29/23 Issa Sanches MD [address] [facility] [address] [place], [place] [id number] Consulting Physician Cardiology 11/29/23 Miscellaneous, Not In File 12/13/23
--- OUTSIDE RECORDS SUMMARY | 2025-02-20 13:17 | XMS_ITS | Clinical Summary ---
Author Organization [facility] Address [address] [place] [address] Phone Care Team Providers Care Sanitary Engineering Teacher Name Role Phone Vel Gilliam MD Primary Care Provider [phone] Allergies Active Allergy Reactions Criticality Noted Date Comments Amlodipine Rash Low 07/30/2010 Patient experienced a rash on both arms while on amlodipine Bupropion Rash Low 08/26/2011 Hydrocodone-Acetaminophen 10/07/2005 Other reaction(s): Unknown Metoprolol Bradycardia 07/30/2010 Patient HR is to low to tolerate beta alli. It decreased to 44 while on metoprolol. Medications ALPRAZolam (XANAX) 0.25 MG tablet 1 tid prn 3 Active escitalopram (LEXAPRO) 10 MG tablet 1 daily 0 6 Active hydroxychloroqui ne (PLAQUENIL) 200 MG tablet 0 Active famotidine (PEPCID) 40 MG tablet 0 Active irbesartan (AVAPRO) 150 MG tablet Take 150 mg by mouth 2 (two) times a day Active folic acid (FOLVITE) 400 MCG tablet Take 800 mcg by mouth daily Active Cyanocobalamin ER (B-12 TR) 2000 MCG tablet controlled-relea se Take 4,000 mcg by mouth daily Active Cholecalciferol (Vitamin D3) 125 MCG (5000 UT) tablet Take 5,000 Units by mouth daily Active amLODIPine (NORVASC) 5 MG tablet Take 5 mg by mouth 1 (one) time each day 0 Active aspirin 81 MG chewable tablet Chew 81 mg 1 (one) time each day Active gabapentin (NEURONTIN) 300 MG capsule Take 300 mg by mouth 2 (two) times a day 0 Active simvastatin (ZOCOR) 10 MG tablet TAKE 1 TABLET BY MOUTH EVERY DAY 90 tablet 1 2 Active metoprolol succinate XL (TOPROL-XL) 50 MG 24 hr tablet TAKE 1 TABLET BY MOUTH EVERY DAY 90 tablet 1 2 Active Trelegy Ellipta 100-62.5-25 MCG/INH aerosol powder INHALE 1 PUFF BY MOUTH DAILY 2 Active Myrbetriq 50 MG tablet sustained-releas e 24 hour Take 1 tablet by mouth 1 (one) time each day 2 Active fluticasone (FLONASE) 50 MCG/ACT nasal spray ADMINISTER 1 SPRAY INTO EACH NOSTRIL 2 TIMES A DAY. 2 Active sodium bicarbonate 650 MG tablet Take 2 tablets (1,300 mg total) by mouth 2 (two) times a day with meals 360 tablet 3 2 Active Active Problems Problem Noted Date Diagnosed Date Cardiac pacemaker in situ 08/12/2020 Overview (08/22/2020): [employer] pacemaker implanted on 08/12/20 for SSS. [facility] Orthostatic hypotension 08/04/2020 Anemia of chronic renal failure 07/04/2020 Bradycardia 05/09/2019 Overview (08/22/2020): Last Assessment & Plan: Symptomatic bradycardia in association with sinus node dysfunction. I recommended that the patient consider placement of a dual-chamber pacemaker. I explained the risks and benefits, and he would like to proceed. My office will make the appropriate arrangements. From: Ian AE, Nathalia LORA, Jose KA, Zoran DIETZ III, Andrei RA, Lucas LS, Da AM, Larry G, Rosario SC, Minesh DL, Mildred MA, Merrick LK, Sydney RL, Danisha MH, Loi MJ, Donald LW, Sukhwinder HARDY 2012 ACCF/AHA/HRS focused update incorporated into the ACCF/AHA/HRS 2008 guidelines for device-based therapy of cardiac rhythm abnormalities: a report of the [place] [employer] Foundation/[place] [employer] Association Task Force on Practice Guidelines and the Heart Rhythm Society. J Am Kimberly Cardiol 2013;61:e6-75. 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 Pharmacotherapy as ordered. Lipids will be reassessed in 6 months. Nonspecific elevation of lev els of transaminase and lactic acid dehydrogenase (LDH) 02/04/2015 Chronic kidney disease, Stage IV (severe) 2014 Abdominal aortic aneurysm 02/05/2014 Carotid artery stenosis 02/05/2014 Overview (07/18/2019): Last Assessment & Plan: Patient has carotid disease. He is followed by the vascular surgeons at [facility]. Essential (primary) hypertension 10/10/2013 Proteinuria 10/10/2013 Obstructive sleep apnea 10/10/2013 Obesity 09/24/2010 Immunizations Immunization Administration Dates Next Due Influenza Split 08/29/2017 Influenza Split High Dose Pr eservative Free IM 06/25/2020,08/18/2019,08/07/2018,07/20,08/14/2013 Influenza TIV (IM) 09/07/2021, 1,07/21/2010,07/25 Influenza, Injectable, Quadrivalent 09/10/2014 Influenza, Quadrivalent 11/07/2015 Influenza, Unspecified 09/10/2018,2016,04/14/2016,03/25,09/17/2014,09/03/2014,06/29/2011 ,07/21/2010,08/07/2008,07/25/2003 Moderna Sars-cov-2 Vaccination 01/03/2021,2020 Pneumococcal Conjugate 13-Valent 06/01/2016 Pneumococcal Polysaccharide 03/28/2013, 8 TD Preservative Free 10/24/2011 Td 08/29/2008,10/24/1997 Td, Unspecified 08/29/2008,10/24/1997 Family History Medical History Relation Comments Kidney disease Neg Hx Social History Tobacco Use Types Packs/Day Years Used Date Smoking Tobacco: Light Smoker Smokeless Tobacco: Never Tobacco Cessation:Ready to Q uit: No; Counseling Given: Yes Alcohol Use Standard Drinks/Week Comments Not Currently 0 (1 standard drink = 0.6 oz pur e alcohol) Sex and Gender Information Value Date Recorded Sex Assigned at Not on file Legal Sex Male 10:05 AM [facility] Gender Identity Not on file Sexual Orientation Not on file Last Filed Vital Signs Vital Sign Reading Time Taken Comments Blood Pressure 128/60 07/14/2022 9:59 AM CDT Pulse 72 07/14/2022 9:59 AM CDT Temperature 36 C (96.8 F) 07/14/2022 9:59 AM CDT Respiratory Rate 18 04/21/2016 12:01 AM CDT Oxygen Saturation - - Inhaled Oxygen Concentration - - Weight 82.1 kg (181 lb) 07/14/2022 9:59 AM CDT Height 167.6 cm (5' 6 ) 07/14/2022 9:59 AM CDT Body Mass Index 29.21 07/14/2022 9:59 AM CDT Plan of Treatment Health Maintenance Due Date Last Done Comments COVID-19 Vaccine (2023-2 5 season) 2024 01/03/2021, 12/06/2020 Influenza Vaccine (Season Ended) 2025 09/07/2021, 09/10/2018, 08/29/2017, Additional history exists Pneumococcal PPSV23/PCV13 65 + Years / Low and Medium Risk Completed 06/01/2016, 03/28/2013, 08/29/[address] [place] [address] [employer] Care Teams Sanitary Engineering Teacher Relationship Specialty Start Date End Date Vel Gilliam MD [address] [place] [address] PCP - General Family Medicine 02/25/22
--- OUTSIDE RECORDS SUMMARY | 2025-02-20 13:17 | XMS_ITS | Encounter Summary ---
Author Organization [facility] Address [address] [place] [address] Care Team Providers Care Sand Cutter Operator Name Role Phone Lynsey Swann Primary Care Provider + [phone] Encounter Details Date Type Department Care Team (Late st Contact Info) Description 12/24/2019 Prep for Procedure [facility] Testing [address] [place] [address] Iain Sams MD Social History Tobacco Use Types Packs/Day Years Used Date Smoking Tobacco: Every Day Cigarettes 0.5 50 Smokeless Tobacco: Never Alcohol Use Standard Drinks/Week Comments Not Currently 0 (1 standard drink = 0.6 oz pur e alcohol) AUDIT-C Answer Date Recorded Frequency of Alcohol Consumption Monthly or less 11/30/2019 Average Number of Drinks 1 or 2 020 Frequency of Binge Drinking Never 04/2020 Sex and Gender Information Value Date Recorded Sex Assigned at Not on file Legal Sex Male 2:04 PM [employer] Gender Identity Not on file Sexual Orientation Not on file documented as of this encounter Plan of Treatment Not on file documented as of this encounter Visit Diagnoses Not on filedocumented in this encounter Care Teams Sand Cutter Operator Relationship Specialty Start Date End Date Lynsey Swann FNP PCP - General Nurse Practitioner Family 11/30/19 documented as of this encounter
--- OUTSIDE RECORDS SUMMARY | 2025-02-20 13:17 | XMS_ITS | Encounter Summary ---
Author Organization [facility] Address [address] [place] [address] Care Team Providers Care Card Dealer Name Role Phone Lynsey Swann Primary Care Provider + [phone] Encounter Details Date Type Department Care Team (Late st Contact Info) Description 01/07/2020 Prep for Procedure [facility] Multispecialty Care - [facility] [address] [facility], [address] [place] [address] Iain Sams MD Social History Tobacco Use [...] on file Legal Sex Male 2:04 PM [employer] Gender Identity Not on file Sexual Orientation Not on file documented as of this encounter Plan of Treatment Not on file documented as of this encounter Visit Diagnoses Not on filedocumented in this encounter Care Teams Card Dealer Relationship Specialty Start Date End Date Lynsey Swann FNP PCP - General Nurse Practitioner Family 11/30/19 documented as of this encounter
--- OUTSIDE RECORDS SUMMARY | 2025-02-20 13:17 | XMS_ITS | Encounter Summary ---
Author Organization [facility] Address [address] [place] [address] Phone Care Team Providers Care Director Of Materials Name Role Phone Pasha Gutierrez MD Primary Care Provider [phone] Pasha Gutierrez MD Unavailable [phone] Lynsey Nur MD Primary Care Provider Lynsey Nur MD Unavailable [phone] Yancy Romeo MD Unavailable [phone] Fina Todd MD Unavailable [phone] Nigel Herrmann MD Unavailable Ezekiel Duenas MD Unavailable [phone] Quintin Downey MD Unavailable [phone] Bipin Wetzel MD Unavailable Bipin Wetzel MD Unavailable Yancy Romeo MD Unavailable [phone] Raul Bunn MD Unavailable Nicki Villanueva MD Unavailable [phone] Maged Hercules MD Unavailable [phone] Maged Hercules MD Unavailable Vel Gilliam MD Primary Care Provider Nigel Elizalde MD Unavailable [phone] Issa Sanches MD Unavailable [phone] Miscellaneous, Not In File Unavailable Meredithva Vel Lazo MD Primary Care Provider + [phone] Encounter Details Date Type Department Care Team (Latest Contact Info) Description 01/09/2018 Orders Only [facility] CONVERSION Scanning, Provider Social History Tobacco Use Types Packs/Day Years Used Date Smoking Tobacco: Former Smokeless Tobacco: Never Alcohol Use Standard Drinks/Week Comments No 0 (1 standard drink = 0.6 oz pur e alcohol) Sex and Gender Information Value Date Recorded Sex Assigned at Not on file Legal Sex Male 3:08 AM OFFICE SUPPORT SPECIALIST Gender Identity Male 09/15/2020 1:55 PM OFFICE SUPPORT SPECIALIST Sexual Orientation Straight 03/02/2020 6: 25 PM CDT documented as of this encounter Plan of Treatment Not on file documented as of this encounter Procedures Procedure Name Priority Date/Time Associated Diagnosis Comments VASCULAR LABORATORY REPORT 01/09/2018 4:04 PM CDT documented in this encounter Results * VASCULAR LABORATORY REPORT (01/09/2018 4:04 PM CDT) Anatomical Region Laterality Modality Ultrasound us Provider Scanning CV VASCULAR PROCEDURES Final R esult documented in this encounter Visit Diagnoses Not on filedocumented [...] of exposure precautions are 12/23/23. SANCHEZ Pereira, [facility]. 12/13/2023 12/14/2023 12/24/2023 3:[address] documented as of this encounter Care Teams Director Of Materials Relationship Specialty Start Date End Date Pasha Gutierrez MD [address] [place] [address] [address] [address] PCP - General Internal Medicine 11/28/17 10/05/18 Lynsey Nur MD [facility] [address] [place] [address] PCP - General Internal Medicine 10/06/18 07/29/21 Lynsey Nur MD [address] [place] [address] PCP - Essence Attributed PCP 10/24/15 06/15/22 Vel Gilliam MD [address] [place] [address] PCP - General Family Medicine 07/30/21 11/06/24 Vel Gilliam MD [address] [place] [address] PCP - General Family Medicine 11/07/24 Pasha Gutierrez MD [facility] [address] [place] [address] 11/28/17 10/05/18 Yancy Romeo MD [address] [place] [address] Consulting Physician Rheumatology 03/05/19 04/07/20 Fina Todd MD [address] [place] [address] [employer] Insulation Dermatology 03/05/19 Nigel Herrmann MD [address] [place] [address] Surgeon Vascular Surgery 03/05/19 11/28/23 Ezekiel Duenas MD [address] [place] [address] Surgeon Orthopedic Surgery 03/06/19 11/28/23 Quintin Downey MD [address] [place] [address] Consulting Physician Nephrology 03/06/19 Bipin Wetzel MD [address] [place] [address] Referring Physician Cardiovascular Disease 12/28/19 Bipin Wetzel MD [address] [place] [address] Referring Physician Cardiovascular Disease 04/08/20 Yancy Romeo MD [address] [place] [address] Referring Physician Rheumatology 04/08/20 [place] [address] [place] [address] Consulting Physician Gastroenterology 08/04/20 0 Nicki Villanueva MD [address] [place] [address] Medical Oncologist/Hematologi st Hematology 08/04/20 09/29/20 Maged Hercules MD [address] [place] [address] Consulting Physician Hematology and Oncology 09/30/20 Maged Hercules MD [address] [place] [address] Medical Oncologist/Hematologi st Hematology and Oncology 09/30/20 Nigel Elizalde MD [address] [place] [address] Consulting Physician Urology 11/29/23 Issa Sanches MD [address] [facility] [place] [address], [place] [address] Consulting Physician Cardiology 11/29/23 Miscellaneous, Not In File 12/13/23 documented as of this encounter
--- OUTSIDE RECORDS SUMMARY | 2025-02-20 13:17 | XMS_ITS | Encounter Summary ---
Author Organization [facility] RADHA Edwards [facility] Address [address] [place] [address] Care Team Providers Care Print Line Inspector Name Role Phone Vel Gilliam MD Primary Care Provider [phone] Reason for Visit * Reason Comments Establish Care * Eval and Treat (Routine) - Authorized Specialty Diagnoses / Procedures Referred By Contact Referred To Contact Hematology and Oncology Diagnoses Anemia in chronic kidney disease Monoclonal gammopathy Procedures office level 3-5 Vel Gilliam MD [address] [place] [address] Phone: tel: fax: Armond Epstein MD [address] [place] [phone] Phone: tel: fax: Referral ID Status Reason Start Date Expiration Date V isits Requested Visits Authorized [id number] Authorized 12/18/2024 12/17/2025 8 8 Encounter Details Date Type Department Care Team (Late st Contact Info) Description 02/20/2025 10:30 AM CDT Office Visit [facility] Oncology and Hematology - [place] [address] [place] [address] Armond Epstein MD [address] [place] [id number] 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); Chronic anemia Social History Tobacco Use Types Packs/Day Years Used Date Smoking Tobacco: Every Day Cigarettes 0.3 67.3 Started: [birth year]/24/1955 Smokeless Tobacco: Never Tobacco Cessation:Ready to Q uit: Not Asked; Counseling Given: Not Answered Alcohol Use Standard Drinks/Week Comments Never 0 (1 standard drink = 0.6 oz pur e alcohol) Sex and Gender Information Value Date Recorded Sex Assigned at Not on file 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 Gender Identity Not on file Sexual Orientation Not on file documented as of this encounter Last Filed Vital Signs Vital Sign Reading Time Taken Comments Blood Pressure 100/49 02/20/2025 11:08 AM CDT Pulse 71 02/20/2025 11:08 AM CDT Temperature 36.2 C (97.2 F) 02/20/2025 11:08 AM CDT Respiratory Rate 15 02/20/2025 11:0 8 AM CDT Oxygen Saturation 97% 02/20/2025 11: 08 AM CDT Inhaled Oxygen Concentration - - Weight 74.8 kg (164 lb 12.8 oz) 025 11:08 AM CDT Height 167.6 cm (5' 6 ) 02/20/2025 11:0 8 AM CDT Body Mass Index 26.6 02/20/2025 11:08 AM CDT documented in this encounter Progress Notes * Armond Epstein MD - 02/20/2025 12:49 PM CDT Hematology-oncology consult Note Requesting Physician Primary Care Physician No primary care provider on file. Problem list There is no problem list on file for this patient. Previous TREATMENT ? Measurable Disease ? Reason for Visit Abdirizak Frank is a 84 y.o. male who was referred for consultation for MGUS. History of present illness This is a pleasant 84-year-old male with history of hypertension, rheumatoid arthritis, prostate cancer, peripheral vascular disease and Sjogren syndrome and chronic kidney disease diagnosed 3 years ago referred to me for history of MGUS and chronic anemia. He denies any bleeding bruisingmelena hematochezia. He has lost 25 pound weight in 6 months. He has been complaining of tiredness and fatigue. Patient used to receive Procrit injection at [facility] 2 years ago for anemia of chronic kidney disease. Is been complaining of knee discomfort and generalized arthritis without any neuropathy. Denies any other new complaints. Past Medical History Past Medical History: Diagnosis Date Asthma Depression Diverticulitis Hypertension Malignant neoplasm (CMS/HCC) Vascular disease Surgical History Past Surgical History: Procedure Laterality Date HX HERNIA REPAIR 2023 HX KNEE REPLACEMENT Both 2006 HX PACEMAKER PLACEMENT 2020 Medications Current Outpatient Medications Medication Sig Dispense Refill hydroxychloroquine (PLAQUENIL) 200 mg tablet Take 1 Tablet by mouth daily. amLODIPine (NORVASC) 5 mg tablet Take 2 Tablets by mouth daily. metoprolol succinate (TOPROL XL) 100 mg Extended Release 24 hour tablet Take 1 Tablet by mouth daily. montelukast (SINGULAIR) 10 mg tablet Take 10 mg by mouth daily at bedtime. tamsulosin (FLOMAX) 0.4 mg capsule Take 1 Capsule by mouth daily. simvastatin (ZOCOR) 10 mg tablet Take 1 Tablet by mouth daily. Senexon-S 8.6-50 mg tablet Take 2 Tablets by mouth 2 times daily. oxyCODONE (ROXICODONE) 5 mg tablet Take 1 Tablet by mouth every 4 hours as needed for Pain. gabapentin (NEURONTIN) 300 mg capsule Take 1 Capsule by mouth 2 times daily. finasteride (PROSCAR) 5 mg tablet Take 5 mg by mouth daily in the morning. clonazePAM (KlonoPIN) 0.5 mg Tablet Take 0.5 mg by mouth 1 time daily as needed for Anxiety. bumetanide (BUMEX) 1 mg tablet Take 1 mg by mouth daily in the morning. ALPRAZolam (XANAX) 0.25 mg tablet Take 0.25 mg by mouth 2 times daily as needed for Anxiety. adrdutdxgbe-uxqscgwzpzfp-ddgpidsofd (TRELEGY ELLIPTA) 100-62.5-25 mcg Disk with Device Take 1 Puff by inhalation daily. aspirin (JENNI CHEWABLE) 81 mg Tablet, Chewable Take 81 mg by mouth daily. aspirin (Jenni Low Dose Aspirin) 81 mg Tablet, Delayed Release (E.C.) Take 81 mg by mouth daily. albuterol sulfate HFA 90 mcg/actuation aerosol inhaler Take 2 Puffs by inhalation every 6 hours as needed for Shortness of Breath. sodium bicarbonate 650 mg tablet Take 650 mg by mouth daily. sennosides (SENOKOT) 8.6 mg tablet Take 8.6 mg by mouth daily. No current facility-administered medications for this visit. Allergies No Known Allergies Immunizations: There is no immunization history on file for this patient. Family History Family History Problem Relation Name Age of Onset Heart Disease Father No Known Problems Mother Esophageal Cancer Brother Skin Cancer Sister Diabetes Child Social History Social History Tobacco Use Smoking status: Every Day Current packs/day: 0.25 Average packs/day: 0.3 packs/day for 67.3 years (16.8 ttl pk-yrs) Types: Cigarettes Start date: 10/24/1955 Smokeless tobacco: Never Substance Use Topics Alcohol use: Never Review of Systems Constitutional: Patient did not mention fever; no night sweats; no anorexia; complain of 25 pound weight loss with tiredness and fatigue NEENT: Patient did not mention headache; no change in vision; no change in hearing; no sore throat;no dysphagia Respiratory: Patient did not mention shortness of breath; no pleuritic chest pain; no cough; no hemoptysis Cardiac: Patient did not mention cardiac-like chest pain; no palpitations; no orthopnea; no PND; noDOE GI: Patient did not mention abdominal pain; no nausea; no vomiting; no diarrhea; no hematochezia; no melena : Patient did not mention dysuria; no frequency; no hesitancy; no 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 No signs of infection or swelling. Eyes: PERRL, conjunctiva normal HEENT: Atraumatic, external ears normal, nose normal, oropharynx moist, no pharyngeal exudates. no sinus tenderness Neck- normal range of motion, no tenderness, supple Respiratory: No respiratory distress, normal breath sounds, no rales, no wheezing Cardiovascular: Normal rate, normal rhythm, no murmurs, no gallops, no rubs GI: Soft, nondistended, normal bowel sounds, nontender, no splenomegaly, no hepatomegaly, no mass, no rebound, no guarding : No costovertebral angle tenderness Musculoskeletal: No edema, no tenderness, no deformities. Back- no tenderness Integument: Well hydrated, no rash, Digits and nails inspection normal Lymphatic: No lymphadenopathy noted Neurologic: Alert & oriented x 3, CN 2-12 normal, normal motor function, normal sensory function, no focal deficits noted Psychiatric: Speech and behavior appropriate ? labs No results found for this or any previous visit (from the past 24 hours). Labs from February 11 showed WBC 5.6 hemoglobin 9.2 platelet 195,000 creatinine 3.9 calcium 9.1 Pathology ? Imaging & Other Studies Performance Status? Assessment / Plan: ? Monoclonal gammopathy of unknown significance. Patient is a 84-year-old male with historyof chronic kidney disease, hypertension, rheumatoid arthritis, prostate cancer and Sjogren syndrome. According patient he was diagnosed with MGUS previously and was seen by Dr. Kim in the past. Patient also received Procrit injection for anemia of chronic kidney disease at [facility] 2 years ago. Clinically he is having some generalized arthralgia with underlying history of rheumatoid arthritis and Sjogren syndrome. Denies any neuropathy. I will order the workup for MGUS that includes serum protein extra pheresis with immunofixation, quantitative immunoglobulin and serum free light chain studies. I do not see need for bone marrow biopsy testing and a skeletal survey at this time. Follow-up with me in 3 weeks. Anemia of chronic kidney disease. Will check iron studies and vitamin B12 level. Patient received Procrit injection in the past at [facility]. Based on the repeat blood result we will decide about continuation of Procrit injection to keep hemoglobin more than 10. I have answered all the questions the patient and the satisfaction. Follow-up in 3 weeks. Chronic kidney disease. He will follow-up with Dr. Downey. Hypertension. Patient is on amlodipine. He is also on metoprolol. Rheumatoid arthritis and Sjogren syndrome. Patient is on Plaquenil. Thank you very much for allowing me to participate in Abdirizak Zac's evaluation and management. Please feel free to contact if I can be of any further assistance in your patient???s care requiringhematology or oncology evaluation. Sincerely, ? ? Armond Epstein M.D. cell TOBACCO COUNSELING He is not a tobacco/nicotine user. Armond Epstein MD ,02/20/2025 12:49 PM ? Total time spent 60 minutes, two third of the total time spent counseling patient [id number]. CC:?Quintin Downey MD documented in this encounter Plan of Treatment Upcoming Encounters Date Type Department Care Team (Late st Contact Info) Description 03/13/2025 4:30 PM CDT Telephone Check Up [facility] Oncology and Hematology - [place] [address] [facility] [address] [place] [address] Armond Epstein MD [address] [facility] [address] [place] [address] Scheduled Orders Name Type Priority Associated Diagnoses Orde r Schedule CBC WITH DIFFERENTIAL Lab Stat MGUS (monoclonal gammopathy of unknown significance) Expected: 02/20/2025, Expires: 02/20/2026 COMPREHENSIVE METABOLIC PANEL Lab Stat MGUS (monoclonal gammopathy of unknown significance) Expected: 02/20/2025, Expires: 02/20/2026 IMMUNOGLOBULINS IGG IGA IGM Lab Routine MGUS (monoclonal gammopathy of unknown significance) Expected: 02/20/2025, Expires: 02/20/2026 KAPPA/LAMBDA, FREE LIGHT CHAINS Lab Routine MGUS (monoclonal gammopathy of unknown significance) Expected: 02/20/2025, Expires: 02/20/2026 PROTEIN ELECTROPHORESIS W/REFLEX,SERUM Lab Routine MGUS (monoclonal gammopathy of unknown significance) Expected: 02/20/2025, Expires: 02/20/2026 FERRITIN Lab Routine Chronic anemia Expected: 02/20/2025, Expires: 02/20/2026 IRON, TIBC, AND PERCENT SATURATION Lab Routine Chronic anemia Expected: 02/20/2025, Expires: 02/20/2026 VITAMIN B12 AND FOLATE Lab Routine Chronic anemia Expected: 02/20/2025, Expires: 02/20/2026 documented as of this encounter Visit Diagnoses Diagnosis MGUS (monoclonal gammopathy of unknown significance)- Primary Monoclonal paraproteinemia Chronic anemia Anemia, unspecified documented in this encounter Care Teams Print Line Inspector Relationship Specialty Start Date End Date Vel Gilliam MD [address] [place] [address] PCP - General Family Practice 02/14/14 documented as of this encounter
--- OUTSIDE RECORDS SUMMARY | 2025-02-20 13:17 | XMS_ITS | Clinical Summary ---
Author Organization [facility] Address [address] [place] [address] Phone Care Team Providers Care District Captain Name Role Phone Fina Todd MD Unavailable [phone] Quintin Downey MD Unavailable [phone] Bipin Wetzel MD Unavailable Yancy Loera MD Unavailable [phone] Dwayne Hercules MD Unavailable Dwayne Hercules MD Unavailable [phone] Nigel Elizalde MD Unavailable [phone] Issa Sanches MD Unavailable [phone] Miscellaneous, Not In File Unavailable Unava Vel Lazo MD Primary Care Provider [phone] Allergies No known active allergies Medications simvastatin [...] mouth 2 (two) times a day Active metoprolol XL (TOPROL-XL) 100 mg 24 hr tablet Take 1 tablet (100 mg total) by mouth daily 90 tablet 3 024 2025 Active Additional Information Patient taking differently:100 mg oralEvery morning, Indications: hypertension, Informant: Self, Reported on 02/05/2025 amLODIPine (NORVASC) 5 mg tablet Take 2 tablets (10 mg total) by mouth daily 180 tablet 3 Active finasteride (PROSCAR) 5 mg tabletIndication s:benign prostatic hyperplasia with lower urinary tract sx Take 1 tablet (5 mg total) by mouth every morning Active tamsulosin (FLOMAX) 0.4 mg extended release capsuleIndicatio ns:benign prostatic hyperplasia with lower urinary tract sx Take 1 capsule (0.4 mg total) by mouth every morning Active sennosides 17.2 mg tablet Take 1 [...] EVERY DAY AT NIGHT 90 tablet 1 024 Active Additional Information Patient taking differently:10 mg oral Nightly,Indications: Maintenance Therapy for Asthma, Seasonal Allergic Rhinitis, Informant: Self, Reported on 02/05/2025 aspirin 81 mg enteric coated tablet Take 1 tablet (81 mg total) by mouth daily 025 Active Additional Information Patient taking differently:81 mg [...] hours as needed for pain 10 tablet Active gabapentin (NEURONTIN) 300 mg capsule TAKE [...] (12/13/2023): PVD - Peripheral vascular disease; Comments: HERB 11/07/2015 - Assessment & Plan (12/13/2023 1:29 PM RAILROAD POLICE): #PAD #Asx ICA stenosis - Home med: Simvastatin 10mg daily GERD (gastroesophageal reflux disease) Assessment & Plan (12/13/2023 1:29 PM RAILROAD POLICE): - Home med: Famotidine 40mg daily Elevated troponin 12/13/2023 Assessment & Plan (12/13/2023 1:31 PM RAILROAD POLICE): - : Trop 47, 45, 49, plateaued - New RBBB on EKG compared to EKG 09/2023 Right bundle branch block (RBBB) 12/13/2023 Assessment & Plan (12/13/2023 1:40 PM RAILROAD POLICE): - Noted on EKG 12/12/2023, changed from prior EKG 09/2023 - Follow up with outpatient set decorator Dr. Chester Closed fracture dislocation of sternum Assessment & Plan (12/13/2023 1:29 PM RAILROAD POLICE): - pain controlled on RA and patient ambulatory after >12 hrs between accident and arriving to [facility]. - Repeat EKG with new RBBB compared [...] months. Assessment & Plan (11/29/2023 9:59 AM RAILROAD POLICE): Asymptomatic and stable left ICA stenosis based on velocity criteria. As long as he's smoking, we recommend monitoring him with carotid doppler every six months. Assessment & Plan (09/02/2022 11:43 AM RAILROAD POLICE): He has minimal right ICA stenosis. The [...] administration of iodinated contrast. He has a [employer] Essentio pacemaker implant. The MR department at [facility] is checking with Soccer Manager to determine if his implant - including [...] if change/issue/re-evaluation desired. Pacemaker 08/12/2020 Overview (08/12/2020): [employer] DDD Essentio pacemaker implanted on 08/12/20 for SSS. [facility] Overweight with body mass in dex (BMI) of 28 to 28.9 in adult 08/06/2020 Assessment & Plan (08/06/2020 2:26 PM CDT): Unchanged Discussed healthy diet and importance of regular physical activity. Sinoatrial node dysfunction 08/05/2020 Overview (08/05/2020): Added automatically from request for surgery [id number] Anemia associated with chronic renal failure 08/2020 [...] cardiac rhythm abnormalities: a report of the [place] [employer]/[place] [employer] Association Task Force on Practice Guidelines [...] MH, Loi MJ, Donald LW, Sukhwinder HARDY 2011 ACCF/AHA/HRS focused update incorporated into the ACCF/AHA/HRS 2008 guidelines for device-based therapy of cardiac rhythm abnormalities: a report of the [place] [employer]/[place] [employer] Task Force on Practice Guidelines [...] his symptoms. He has not seen a set decorator for any reasons lately. He has not had any active heart symptoms otherwise that brought him to 1. We did do an EKG which confirmed the it bradycardia. It is probably worth setting up a consult with the set decorator to assess this further. If there is any acute heart symptoms or concerns at all was reasonable to going to the emergency room to seek more emergent her medial evaluation. They will call interim if there is any other concerns. Reviewed symptoms to watch for. Hemorrhage of rectum and anus 04/04/2019 Overview (04/04/2019): Added automatically from request for surgery [id number] Assessment & Plan (06/13/2020 2:44 PM CDT): [...] 10/25/2018 Assessment & Plan (10/25/2018 3:10 PM RAILROAD POLICE): We reviewed current day concerns aboutbenzis and [...] 07/15/2017 Assessment & Plan (10/25/2018 3:09 PM RAILROAD POLICE): Reviewed his recent labs. He is going to follow up with his catapult and arresting gear officer about the anemia. He does not believe [...] CDT): Patient is also followed by the mechanical technologist for his rheumatoid arthritis Monoclonal gammopathy 04/14/2016 [...] disease Assessment & Plan (09/02/2022 10:18 AM RAILROAD POLICE): Stable lower extremity arterial disease both symptomatically and based on vascular study. Repeat ABIs in one year. Assessment & Plan (04/13/2017 6:13 PM CDT): Has carotid disease. Had an ultrasound in October. Followed by Dr. Herrmann Anxiety disorder 11/07/2015 Overview (01/27/2017): Depression, unspecified depression type Assessment & Plan (12/13/2023 1:28 PM RAILROAD POLICE): - Home med: Alprazolam 0.25mg BID Sjogren's disease 01/07/2015 Assessment & Plan (12/13/2023 1:27 PM RAILROAD POLICE): #Sjogrens/SLE - Home med: Plaquenil 200mg BID, Gabapentin 300mg BID Chronic kidney disease, stage IV (severe) 2009 Assessment & Plan (03/03/2020 1:12 PM CDT): He is going to call the catapult and arresting gear officer to make sure they are okay with [...] hypertension Assessment & Plan (12/13/2023 1:27 PM RAILROAD POLICE): - Home med: Amlodipine 0.25mg BID, HCTZ 200mg daily, Metop 50mg daily, Irbesartan 300mg daily Assessment & Plan (03/03/2020 1:12 PM CDT): He is going to cautiously increase Avapro 150 mg twice a day. He is aware were going to have to watch his renal function. He is also going to reach out to his catapult and arresting gear officer to make sure they are on board with that. I did put lab orders in. He can acid catapult and arresting gear officer as well as mechanical technologist if they wanted the other labs in [...] CPAP Assessment & Plan (12/13/2023 1:26 PM RAILROAD POLICE): - CPAP ordered Tobacco abuse 10/24/1998 Overview (03/05/2019): Overview: Quit 1998; 40 pack years Assessment & Plan (11/29/2023 11:43 AM RAILROAD POLICE): The importance of smoking cessation was discussed with the patient including the relationship between peripheral vascular disease and tobacco abuse. COPD (chronic obstructive pulmonary disease) Assessment & Plan (12/13/2023 1:26 PM RAILROAD POLICE): - Home med: Trelegy Ellipta daily, Albuterol [...] 12/28/2019 Assessment & Plan (12/28/2019 12:47 PM RAILROAD POLICE): I do not see any indication why this pt can not proceed with surgery especially since he has been cleared by nephrology and pulmonology. EKG: normal EKG, normal sinus rhythm, unchanged from previous tracings. Abnormal MRI, spine 03/28/2019 09/23/20 Rectal bleeding 03/27/2019 12/28/2019 Assessment & Plan [...] activity. Assessment & Plan (10/25/2018 3:09 PM RAILROAD POLICE): BMI Follow-up includes: nutrition counseling, exercise counseling and education provided. Diarrhea 10/25/2018 03/05/2019 Foot pain, bilateral 06/27/2018 019 Skin lesions, generalized 01/26/2018 Assessment & Plan (01/26/2018 4:03 PM CDT): Patient has multiple skin issues on his back. I have elected to refer him to the investigations manager. I do not see anything overly alarming right now. There is some much going on there though. Bronchitis 12/06/2017 03/05/2019 Assessment & Plan (12/06/2017 12:24 PM RAILROAD POLICE): Still smoking colored sputum plus wheezes will [...] Anxiety Assessment & Plan (10/25/2018 3:10 PM RAILROAD POLICE): He will continue on his Lexapro. I refilled the Xanax. He reports he is doing okay between the 2 medications. We reviewed medication side effect potentials Obesity with body mass index (BMI) of 30.0 to 39.9 11/07/2015 09/23/2020 Overview (01/27/2017): Lumbar herniated disc Assessment & Plan (12/28/2019 10:37 AM RAILROAD POLICE): Unchanged Discussed healthy diet and importance of [...] is followed by the vascular surgeons at [place]. Moderate major depression, single episode 05/24/2011 12/28/2019 Obesity 09/24/2010 03/05/2019 Microalbuminuria 08/26/2008 12/28/2019 Aortic valve sclerosis 07/29/200503/05 Encounters Date Type Department Care Team Description 02/18/2025 Orders Only [facility] Surgery [address] [facility] Advanced [facility] 8th [place] [address] [place] [address] Molina Jordan MD End stage renal disease (HCC) (Primary Dx) 02/18/2025 Telephone [facility] Surgery [address] [facility] Floor 1 [place] [address] Molina Jordan MD 02/06/2025 7:45 AM CDT Ancillary Procedure [facility] Cardiology [address] [facility] [address], [place] [phone] Bradycardia; Sinoatrial node dysfunction (HCC); Cardiac pacemaker in situ 02/05/2025 7:35 AM CDT Anesthesia Event [facility] Operating Room [facility] [place] [phone] Miguel Urena MD 02/05/2025 7:30 AM CDT - 02/05/2025 10:[address] [facility] Operating Room [facility] [place] [phone] Moilna Jordan MD Creation Right Arteriovenous Fistula 02/05/2025 5:32 AM CDT - 02/05/2025 10:36 AM CDT Hospital Encounter [facility] Operating Room [facility] [place] [phone] Molina Jordan MD Chronic kidney disease (CKD), stage V (HCC) (Primary Dx) Discharge Disposition: Discharge to home or self care 02/01/2025 Telephone [facility] Vascular Surgery [address] [facility] Office Building [address] [place] [phone] Molina Jordan MD 01/29/2025 10:45 AM CDT Office Visit [facility] Cardiology at [address] [place] [address] Dwayne Fowler MD Chronic systolic CHF (congestive heart failure) (HCC) (Primary Dx); Chronic systolic congestive heart failure (HCC); Cardiomyopathy, unspecified type (HCC); Nonrheumatic mitral valve regurgitation; Pacemaker; Asymptomatic bilateral carotid artery stenosis 01/23/2025 11:59 PM CDT Anesthesia Event [facility] Operating Room [address] [place] [address] Shantal Gregory NP 01/21/2025 Telephone [facility] Surgery [address] [facility] Floor 1 [place] [phone] Esperanza Bedolla PA 01/21/2025 Results Follow-Up [facility] Cardiology [address] [place] [address] Dwayne Fowler MD 01/17/2025 2:30 PM CDT Ancillary Procedure [facility] Cardiology at [address] [place] [address] Chronic systolic CHF (congestive heart failure) (HCC); Cardiomyopathy, unspecified type (HCC); Nonrheumatic mitral valve regurgitation 01/16/2025 10:15 AM CDT Office Visit [facility] Surgery [address] [facility] 8th [place] [address] [place] [address] Molina Jordan MD Chronic kidney disease (CKD) stage G5/A1, glomerular filtration rate (GFR) less than or equal to 15 mL/min/1.73 square meter and albuminuria creatinine ratio less than 30 mg/g (HCC) (Primary Dx); Chronic kidney disease, stage 4 (severe) (HCC) 01/16/2025 9:30 AM CDT Ancillary Procedure [facility] Vascular Lab at [facility] [address] [facility] 8th [place] [address] [place] [address] Chronic kidney disease (CKD) stage G5/A1, glomerular filtration rate (GFR) less than or equal to 15 mL/min/1.73 square meter and albuminuria creatinine ratio less than 30 mg/g (HCC) 01/08/2025 Telephone [facility] Vascular Surgery [address] [place] [address] Office [address] [place] [address] Molina Jordan MD 01/08/2025 Telephone [facility] Surgery [address] [facility] Floor 1 [place] [address] Molina Jordan MD 12/18/2024 Orders Only [facility] Vascular Surgery [address] [facility] Office Building [address] [place] [address] Molina Jordan MD Chronic kidney disease (CKD) stage G5/A1, glomerular filtration rate (GFR) less than or equal to 15 mL/min/1.73 square meter and albuminuria creatinine ratio less than 30 mg/g (HCC) (Primary Dx) 12/04/2024 3:45 PM RAILROAD POLICE Lab [facility] at [address] [place] [address] Other systemic lupus erythematosus with other organ involvement (HCC) 12/04/2024 3:00 PM RAILROAD POLICE Office Visit [facility] Rheumatology [address] [facility] Medical Office Building [address] [place] [address] Yancy Loera MD Other systemic lupus erythematosus with other organ involvement (HCC) 12/01/2024 10:00 AM RAILROAD POLICE - 12/01/2024 11:59 PM RAILROAD POLICE Hospital Encounter [facility] [address] [place] [address] Multiple pulmonary nodules Discharge Disposition: Discharge to home or self care 11/28/2024 10:30 AM RAILROAD POLICE Office Visit [facility] Medical [address] [place] [phone] Pedro Pablo Sue MD Obstructive sleep apnea (Primary Dx); History of radiation therapy; Chronic cough; Non-seasonal allergic rhinitis due to pollen; Simple chronic bronchitis (HCC); Multiple pulmonary nodules; Cigarette nicotine dependence without complication; Monoclonal gammopathy 11/28/[address] [place] [address] [facility] [address] [place] [phone] Pedro Pablo Sue MD 11/28/[address] [place] [phone] Pedro Pablo Sue MD 11/26/2024 12:51 PM RAILROAD POLICE Anesthesia Event [facility] GI Center [address] [place] [phone] Kyle Villagran MD Tynes, Jessika Olegovna, CRNA 11/26/2024 12:00 PM RAILROAD POLICE - 11/26/2024 12:30 PM RAILROAD POLICE Surgery [facility] [address] [place] [phone] Marv Kaminski MD ESOPHAGOGASTRODUODENOSCOPY ULTRASOUND GUIDE LIMITED 11/26/2024 10:54 AM RAILROAD POLICE - 11/26/2024 2:45 PM RAILROAD POLICE Hospital Encounter [facility] GI Center [address] [place] [address] Marv Kaminski MD IPMN (intraductal papillary mucinous neoplasm) Discharge Disposition: Discharge to home or self care from Last 3 Months Immunizations Immunization Administration Dates Next Due Flucelvax [...] 10/24/2011 Td, Unspecified 08/29/2008,10/24/1997 Td, adsorbed 08/29/2008,10/24/1997 Surgical History Surgery Date Site/Laterality Comments KNEE ARTHROPLASTY 10/24/1998 - 10/23/1999 Bilateral Knee replacement OTHER SURGICAL HISTORY 10/24/2006 - 10/23/2007 left knee reconstruction x 2 COLONOSCOPY 10/24/2018 - 10/23/20192008, 2016 HERNIA REPAIR 05/24/2016 - 06/23/2016 ATRIAL CARDIAC PACEMAKER INSERTION 07/24/2020 - 08/23/2020 HERNIA REPAIR 02/22/2024 - 03/23/2024 double Medical History Medical History Date Comments Hx Other Medical Chronic renal i mpairment; Comments: TWM 11/07/2015 - Depression Depression Hypertension Hypertension Sjogren's syndrome Sjogrens synd zari; Comments: [facility] 11/07/2015 - Anxiety disorder Anxiety Hx Other Medical peripheral vasc ular disease; Comments: [facility] 11/07/2015 - Peripheral arterial occlusive disease 12/13/2023 PVD - Peripheral vascular disease; Comments: 11/07/2015 - Sleep apnea Sleep apnea; Com ments: 11/07/2015 - Chronic back pain Chronic back p ain; Comments: 11/07/2015 - Decreased testosterone level Low testosterone; Comments: 11/07/2015 - Inguinal hernia Inguinal hernia; Comments: 11/07/2015 - Cancer (HCC) prostrate Sleep difficulties Colon polyp Chronic diarrhea Chronic constipation Hyperlipidemia Chronic kidney disease stage 3 Vitamin D deficiency Pacemaker CHF (congestive heart failure) (HCC) Family History Medical History Relation Name Comments Cancer Brother 2 Aly Cancer, unknown ; GDS 03/09/2016 -esophagus cancer Esophageal cancer Brother 2 Aly Rheum arthritis Daughter Coronary artery disease Father Albert nary artery disease; Liver disease Mother Liver disease; Melanoma Sister 2 Cancer, unknown ; Cause of : Cancer, unknown Anesthesia problems Neg Hx Relation Name Status Comments Brother 1 Brother 2 Aly Daughter Father Mother Sister 1 (Age 38) Sister 2 Social History Tobacco Use Types Packs/Day Years [...] on file Legal Sex Male 3:08 AM RAILROAD POLICE Gender Identity Male 09/15/2020 1:55 PM [employer]ILROAD POLICE Sexual Orientation Straight 03/02/2020 6: 25 PM CDT Obstetrics History Last Filed Vital Signs Vital Sign Reading [...] 02/05/2025 6:26 AM CDT Plan of Treatment Health Maintenance Due Date Last Done Comments Hepatitis B Screening 1958 Zoster Vaccine (1 of 2) 1959 DTaP/Tdap/Td Vaccine (1 - Tdap) 10/25/2011 10/24/2011, 08/29/2008, 08/29/2008, Additional history exists Covid-19 Vaccine (3 - Modern a risk series) 01/31/2021 01/03/2021, 12/06/2020 Well Visit 65+ 05/21/2021 05/21/2020, 10/25/2018 Depression Screening 06/25/2021 06/25/2020, 05/21/2020, 05/21/2020, Additional history exists Influenza Vaccine (Season Ended) 2025 09/07/2021, 06/25/2020, 06/25/2020, Additional history exists Fall Risk Assessment 02/05/2026 02/05/2025, 06/25/2020, 05/21/2020, Additional history exists Pneumococcal vaccine 65+ Completed 016, 03/28/2013, 08/29/2008 Abdominal Aortic Aneurysm (A AA) Screen Completed 09/02/2022, 06/16/2022, 07/24/2020, Additional history exists Medical Devices Implanted Type Area Electrical Controls Engineer Device Identifier Shelf Expiration Date Model / Serial / Lot [employer] F[employer]o 7841 Lead 7841 Endocardial Pacing Mr Is-1 Bipolar Connection - [id number] - [id number] Implanted:Qty: 1 on 08/12/2020 by Issa Sanches MD at [facility] [employer] [id number] 11/20/2021 [id number] / [id number] / [employer] 7840 Lead 7840 Endocardial Pacing Mr Is-1 Bipolar Connection - [id number] - [id number] Implanted:Qty: 1 on 08/12/2020 by Issa Sanches MD at [facility] [employer] [id number] 11/22/2021 7840 / [id number] / [employer] L111 Essentio 4.45x5.02cm 2 Chamber Is1 Connector .75cm Pacemaker 13.7 - [id number] - [id number] Implanted:Qty: 1 on 08/12/2020 by Issa Sanches MD at [facility] [employer]. [id number] 06/23/2022 L111 / [id number] / Procedures Procedure Name Priority Date/Time Associated Diagnosis Comments DEVICE CHECK - REMOTE Routine 02/07/2025 9:53 AM CDT Bradycardia Sinoatrial node dysfunction (HCC) Cardiac pacemaker in situ NM AN PROCEDURE PLACEHOLDER Routine 01/22 7:52 AM CDT NM AN ELECTIVE SUPRAGLOTTIC AIRWAY Routine 02/05/2025 7:52 [...] RATIO, URINE, RANDOM Routine 12/04/2024 5:14 PM RAILROAD POLICE Other systemic lupus erythematosus with other organ involvement (HCC) URINALYSIS AND REFLEX TO MICROSCOPIC AND CULTURE Routine 12/04/2024 5:14 PM RAILROAD POLICE Other systemic lupus erythematosus with other organ involvement (HCC) JUSTINA-1 ANTIBODY Routine 12/04/2024 3:59 PM RAILROAD POLICE Other systemic lupus erythematosus with other organ involvement (HCC) SCL 70 ANTIBODIES Routine 12/04/2024 3:59 PM RAILROAD POLICE Other systemic lupus erythematosus with other organ involvement (HCC) DIRECTOR OF DIVERSITY AND INCLUSION ANTIBODIES Routine 12/04/2024 3:59 PM RAILROAD POLICE Other systemic lupus erythematosus with other organ involvement (HCC) LOZADA ANTIBODIES Routine 12/04/2024 3:59 PM RAILROAD POLICE Other systemic lupus erythematosus with other organ involvement (HCC) SJOGRENS SYNDROME-B ANTIBODY Routine 08/2025 3:59 PM RAILROAD POLICE Other systemic lupus erythematosus with other organ involvement (HCC) SJOGRENS SYNDROME-A ANTIBODY Routine 08/2025 3:59 PM RAILROAD POLICE Other systemic lupus erythematosus with other organ involvement (HCC) EGFR Routine 12/04/2024 3:59 PM RAILROAD POLICE Other systemic lupus erythematosus with other organ involvement (HCC) DIFFERENTIAL AUTO Routine 12/04/2024 3:59 PM RAILROAD POLICE Other systemic lupus erythematosus with other organ involvement (HCC) CBC WITH AUTO DIFFERENTIAL Routine 12/04 3:59 PM RAILROAD POLICE Other systemic lupus erythematosus with other organ involvement (HCC) COMPREHENSIVE METABOLIC PANEL Routine 3:59 PM RAILROAD POLICE Other systemic lupus erythematosus with other organ involvement (HCC) C3 COMPLEMENT Routine 12/04/2024 3:59 PM RAILROAD POLICE Other systemic lupus erythematosus with other organ involvement (HCC) CRP (ACUTE PHASE) Routine 12/04/2024 3:59 PM RAILROAD POLICE Other systemic lupus erythematosus with other organ involvement (HCC) ANTI-DOUBLE STRANDED DNA ANTIBODIES Routine 12/04/2024 3:59 PM RAILROAD POLICE Other systemic lupus erythematosus with other organ involvement (HCC) ERYTHROCYTE SEDIMENTATION RATE Routine 0 12/04/2024 3:59 PM RAILROAD POLICE Other systemic lupus erythematosus with other organ involvement (HCC) C4 COMPLEMENT Routine 12/04/2024 3:59 PM RAILROAD POLICE Other systemic lupus erythematosus with other organ involvement (HCC) NATALIIA ANTIBODY EVALUATION WITH REFLEX Routine 12/04/2024 3:59 PM RAILROAD POLICE Other systemic lupus erythematosus with other organ involvement (HCC) CT CHEST WO CONTRAST Schedule Routine, Read Routine (OP Routine) 12/01/2024 10:07 AM RAILROAD POLICE Multiple pulmonary nodules US ENDOSCOPIC IP Routine 11/26/2024 1:07 PM RAILROAD POLICE IPMN (intraductal papillary mucinous neoplasm) CYTOLOGY Routine 11/26/2024 1:01 PM RAILROAD POLICE IPMN (intraductal papillary mucinous neoplasm) ESOPHAGOGASTRODUODENOSCOPY ULTRASOUND GUIDE LIMITED 11/26/2024 12:51 PM RAILROAD POLICE IPMN (intraductal papillary mucinous neoplasm) UPPER EUS 11/26/2024 11:36 AM RAILROAD POLICE from Last 3 Months Results * DEVICE CHECK - REMOTE (02/07/2025 9:53 AM CDT) Anatomical Region Laterality Modality Other Narrative 02/14/2025 5:10 PM CDT [employer] pacemaker implanted on 08/12/[address] [facility] [facility] Pacemaker Remote. Transmission attached. Battery status: Ok, 3.5 years remaining battery life to MANE. Stable lead impedances, pacing and sensing thresholds. Presenting rhythm: AP-RESIDENTIAL PROPERTY CONSULTANT. AP-100%, RESIDENTIAL PROPERTY CONSULTANT-98%. 1 AT/AF episodes noted, 2 second duration, IEGM demonstrates noise. No Ventricular high rate episodes detected. Medications: ASA 81 mg, Toprol-XL. See scanned report. Office pacemaker follow up: 1 year. [facility] remote f/u 05/08/2025. Adali Vaca RN Dwayne Fowler MD CV CARDIAC SERVICES PROCE [facility] Final Result * NM AN ELECTIVE SUPRAGLOTTIC AIRWAY, NM AN PROCEDURE PLACEHOLDER (02/05/2025 7:52 AM CDT) Narrative Rebecca Weaver CRNA - 02/05/2025 7:52 AM CDT Rebecca Weaver CRNA 02/05/2025 7:53 AM Airway Patient location: OR Urgency: elective Date/time: 02/05/2025 7:42 AM Indications for airway management: anesthesia Difficult airway: no Staff: Placed by: [employer]: Rebecca Weaver CRNA Resident: Miguelito Longoria Emergent [...] SGA size: 4 Number of attempts: 1no us Miguel Urena MD ANESTHESIA ORDERABLES Final Result [...] 6:36 AM CDT 02/05/2025 6:47 AM CDT [facility] Iain Urena MD LAB BLOOD ORDERABLES F inal Result [facility] [address] Department [place] [address] * (ABNORMAL) Basic metabolic panel (02/05/2025 6:36 AM CDT) Sodium 142 135 - 145 mmol/L Potassium, pl 4.8 3.3 - 4.9 mmol/L [facility] Chloride 110 97 - 110 mmol/L [facility] CO2 17(L) 22 - 32 mmol/L [facility] Anion gap 15 2 - 15 mmol/L [facility] BUN 70(H) 6 - 25 mg/dL [facility] Creatinine 3.66(H) 0.80 - 1.30 mg/dL [facility] Glucose 71 70 - 199 mg/dL [facility] Comment: Interpretive Data Fasting glucose >/= 126 [...] 2022. Calcium 8.7 8.5 - 10.3 mg/dL [facility]IDA [facility] Blood 02/05/2025 6:36 AM CDT 02/05/2025 6:47 AM CDT Miguel Iain Urnea MD LAB BLOOD ORDERABLES F inal Result [facility] [address] Department [place] [address] * TRANSTHORACIC ECHO (TTE) COMPLETE W DOPPLER/CF WO CONTRAST (01/17/2025 3:06 PM CDT) LV EF 30 % CONS SCIMAGE Anatomical Region Laterality Modality Ultrasound 01/17/2025 2:30 PM CDT Narrative 01/18/2025 7:28 AM CDT [facility] [address], [address], [place] [address] P:[phone] P:[phone] Echocardiographic Report Patient Name: UNIQUE FRANK H : 1940 Study Date: 01/17/2025 2:30:38 PM Gender: M Tech: Location: SE Ref Provider: DWAYNE FOWLER Height(Cm): 168 BSA: [...] FINDINGS: Interpretation Site: Exam was interpreted at [facility]. Left Ventricle: Moderate enlargement of left [...] noted. Electronically Signed By: Thomas Brown MD, [facility] 01/18/2025 7:27:37 AM CDT Procedure Note Thomas Brown MD - 01/18/2025 [facility] [address], [address], [place] [address] P:[phone] P:[phone] Echocardiographic Report Patient Name: UNIQUE FRANK H [...] FINDINGS: Interpretation Site: Exam was interpreted at [facility]. Left Ventricle: Moderate enlargement of left [...] noted. Electronically Signed By: Thomas Brown MD, [facility] 01/18/2025 7:27:37 AM CDT us Dwayne Fowler MD CV ECHO PROCEDURES Final Result * US Vein Mapping Fistula Access, Bilateral (01/16/2025 9:58 AM CDT) Anatomical Region Laterality Modality Vascular Bilateral Ultrasound 01/16/2025 9:30 AM CDT Narrative 01/16/2025 6:14 PM CDT [facility] - Department of Vascular Surgery, Vascular Laboratory [address] [place] [address] Upper Extremity Vein Mapping Report Patient Name: UNIQUE FRANK : 1940 (84y 2m) Study Date: 01/16/2025 9:30:52 AM Gender: M Fixed Income Manager: Samantha MCNULTY Location: [facility] Provider: MOLINA JORDAN Quality: Adequate Order [...] Value Units Left Value Units FINDINGS: Performing Fixed Income Manager: Jazzmine Mcnulty RVT. Bilateral: Venous Doppler signals [...] above. Electronically Signed By: Varghese Ryan MD [facility] [phone] 01/16/2025 6:14:30 PM CDT Procedure Note Varghese Ryan MD - 01/16/2025 [facility] - Department of Vascular Surgery,Vascular Laboratory [address] [place] [address] Upper Extremity Vein Mapping Report Patient Name: UNIQUE FRANK : 1940 (84y 2m) Study Date: 01/16/2025 9:30:52 AM Gender: M Fixed Income Manager: Samantha MCNULTY Location: [facility] Provider: MOLINA JORDAN Quality: Adequate Order [...] Value Units Left Value Units FINDINGS: Performing Fixed Income Manager: Jazzmine Mcnulty RVT. Bilateral: Venous Doppler signals [...] above. Electronically Signed By: Varghese Ryan MD [facility] [phone] 01/16/2025 6:14:30 PM CDT us Molina Jordan MD IM US PROCEDURES Final Resul t * Urinalysis reflex to microscopic and culture Urine (12/04/2024 5:14 PM [employer]) Color, ur Yellow Yellow Comment:Testing performed by : [facility], [address], [place] [address] Clarity, ur Clear Clear [facility] Comment:Testing performed by : [facility], [address], [place] [address] Specific gravity, ur 1.010 1.003 - 1.030 CERNER [facility] Comment:Testing performed by : [facility], [address], [place] [address] pH, urine 6.0 [facility]ER [facility] Comment: Interpretive Data U rine pH is affected by diet, medications, systemic acid-base disturbances, and renal tubular function. pH may affect urinary stone formation. For example, urine pH below 6.0 may help reduce the tendency for calcium phosphate stones and pH greater than 6.0 may reduce the tendency for uric acid stone formation. Source: [employer] Current Interpretive Data was last revised on 2017 Testing performed by: [facility], [address], [place] [address] Protein, ur ql Negative Negative CERNER [facility] Comment:Testing performed by : [facility], [address], [place] [address] Glucose, ur ql Negative Negative CERNER [facility] Comment:Testing performed by : [facility], [address], [place] [address] Ketones, ur Negative Negative CERNER [facility] Comment:Testing performed by : [facility], [address], [place] [address] Bilirubin, ur Negative Negative CERNER [facility] Comment:Testing performed by : [facility], [address], [place] [address] Blood, ur Negative Negative CERNER [facility] Comment:Testing performed by : [facility], [address], [place] [address] Urobilinogen, ur <2.0 <2.0 mg/dL C[facility]ER [facility] Comment:Testing performed by : [facility], [address], [place] [address] Nitrite, ur Negative Negative CERNER [facility] Comment:Testing performed by : [facility], [address] [place] [address] Leukocyte esterase, ur Negative Negative ELIDA HENRIQUEZ Comment:Testing performed by : [facility], [address] [place] [address] UA reflex comment Reflex conditions for microscopic UA and culture not met. ELIDA HERNADEZCH Comment:Testing performed by : [facility], [address] [place] [address] Urine 12/04/2024 5:14 PM [employer] 12/04/2024 5:15 PM [employer] Yancy Loera MD LAB MICROBIOLOGY - GENERAL ORDERABLES Final Result Performing Organization Address City/[facility] Co de Phone Number [facility] [address] Department [place] [address] * (ABNORMAL) Protein / creatinine ratio, urine, random (12/04/2024 5:14 PM [employer]) Protein, ur, quant 10.2 mg/dL Comment: Interpretive Data No reference range established. Current interpretive data was last revised 2019. Testing performed by: [facility], [address] [place] [address] Creatinine Ur 28.6 mg/dL ELIDA HENRIQUEZ Comment: Interpretive Data No reference range established. Current interpretive data was last revised 2019. Testing performed by: [facility], [address] [place] [address] Protein/creatinin e ratio 356.4(H) 0.0 - 180.0 mg/g CR ELIDA HOROWITZWMEHDI Comment:Testing performed by : [facility], [address], [place] [address] Urine 12/04/2024 5:14 PM [employer] 12/04/2024 5:15 PM [employer] us Yancy Loera MD LAB URINE ORDERABLES Final Result Performing Organization Address City/[facility]/ZIP Co de Phone Number [facility] [address] Department [place] [address] * Anti-double stranded DNA abs (12/04/2024 3:59 PM [employer]) [facility] dsDNA Ab <1.0 <=4.0 IUnits/mL Comment: Interpretive Data Negative: < or = 4 IUnits/mL Indeterminate: 5 - 9 IUnits/mL Positive: > or = 10 IUnits/mL Current interpretive data was last revised on 2017. Testing performed by: [facility], [address] [place] [address]., [address] Blood 12/04/2024 3:59 PM [employer] 12/04/2024 6:42 PM [employer] Yancy Loera MD LAB BLOOD ORDERABLES Final Result Performing Organization Address [facility] Co de Phone Number [facility] [address] [facility] [facility] [place] [address] * SCL 70 abs (12/04/2024 3:59 PM [employer]) [facility] Anti-Scl70, IgG <0.2 <=0.9 Ab Index Comment: Interpretive Data Negative: < 1.0 Ab Index Positive: > or = 1.0 Ab Index Current interpretive data was last revised on 2017. Testing performed by: [facility], [address] [place] [address]., [address] Blood 12/04/2024 3:59 PM [employer] 12/04/2024 6:54 PM [employer] Yancy Loera MD LAB BLOOD ORDERABLES Final Result Performing Organization Address City/[facility]/ZIP Co de Phone Number [facility] [address] [facility] [place] [address] * (ABNORMAL) eGFR (12/04/2024 3:59 PM [employer]) [facility] eGFR 19(L) >=60 mL/min/1. 73 m2 Comment: [...] was last reviewed 2021. Testing performed by: [facility], [address] [place] [address] Blood 12/04/2024 3:59 PM [employer] 12/04/2024 4:35 PM [employer] us Yancy Loera MD LAB BLOOD ORDERABLES Final Result [facility] [address] Department [place] [address] * Differential, auto (12/04/2024 3:59 PM [employer]) Neutrophil abs 3.7 1.5 - 6.5 K/cumm Comment:Testing performed by : [facility], [facility], [address] [place] [address] Imm gran abs 0.1 0.0 - 0.1 K/cumm ELIDA HENRIQUEZ Comment:Testing performed by : [facility], [facility], [address] [place] [address] Lymphocyte abs 1.2 0.8 - 3.3 K/cumm ELIDA HENRIQUEZ Comment:Testing performed by : [facility], [facility], [address] [place] [address] Monocyte abs 0.6 0.2 - 0.8 K/cumm CERNER BJWCH Comment:Testing performed by : [facility], [facility], [address] [place] [address] Eosinophil abs 0.0 0.0 - 0.5 K/cumm CERNER BJWCH Comment:Testing performed by : [facility], [facility], [address] [place] [address] Basophil abs 0.0 0.0 - 0.1 K/cumm CERNER BJWCH Comment:Testing performed by : [facility], [facility], [address] [place] [address] Neutrophil pct 65.3 % [facility]ER [facility] Comment: Interpretive Data Percent cell count reference ranges are not reported, since discordance with absolute values may lead to misinterpretation of CBC data. Current Interpretive Data was last revised on 2018. Testing performed by: [facility], [facility], [address] [place] [address] Imm gran pct 2.3 % C[facility]ER [facility] Comment: Interpretive Data Percent cell count reference ranges are not reported, since discordance with absolute values may lead to misinterpretation of CBC data. Current Interpretive Data was last revised on 2018. Testing performed by: [facility] 2, [address] [place] [address] Lymphocyte pct 21.7 % CERNER [facility] Comment: Interpretive Data Percent cell count reference ranges are not reported, since discordance with absolute values may lead to misinterpretation of CBC data. Current Interpretive Data was last revised on 2018. Testing performed by: [facility] 2, [address] [place] [address] Monocyte pct 10.2 % CERNER [facility] Comment: Interpretive Data Percent cell count reference ranges are not reported, since discordance with absolute values may lead to misinterpretation of CBC data. Current Interpretive Data was last revised on 2018. Testing performed by: [facility], [facility], [address] [place] [address] Eosinophil pct 0.0 % CERVALENTINE HENRIQUEZ Comment: Interpretive Data Percent cell count reference ranges are not reported, since discordance with absolute values may lead to misinterpretation of CBC data. Current Interpretive Data was last revised on 2018. Testing performed by: [facility], [facility], [address] [place] [address] Basophil pct 0.5 % ELIDA HENRIQUEZ Comment: Interpretive Data Percent cell count reference ranges are not reported, since discordance with absolute values may lead to misinterpretation of CBC data. Current Interpretive Data was last revised on 2018. Testing performed by: [facility], [facility], [address] [place] [address] Blood 12/04/2024 3:59 PM [employer] 12/04/2024 4:01 PM [employer] Yancy Loera MD LAB BLOOD ORDERABLES Final Result [facility] [address] [facility] [place] [address] * Lozada abs (12/04/2024 3:59 PM [employer]) Anti-NATALIIA, SM <0.2 <=0.9 Ab Index Comment: Interpretive Data Negative: < 1.0 Ab Index Positive: > or = 1.0 Ab Index Current interpretive data was last revised on 2017. Testing performed by: [facility], [address] [facility], [place]., [address] Blood 12/04/2024 3:59 PM [employer] 12/04/2024 6:54 PM [employer] Yancy Loera MD LAB BLOOD ORDERABLES Final Result Performing Organization Address City/[facility]/ZIP Co de Phone Number [facility] [address] [facility] [facility] [place] [address] * DIRECTOR OF DIVERSITY AND INCLUSION abs (12/04/2024 3:59 PM [employer]) DIRECTOR OF DIVERSITY AND INCLUSION ab <0.2 <=0.9 Ab Index Comment: Interpretive Data Negative: < 1.0 Ab Index Positive: > or = 1.0 Ab Index Current interpretive data was last revised on 2017. Testing performed by: [facility], [address] [place]., [address] Blood 12/04/2024 3:59 PM [employer] 12/04/2024 6:54 PM [employer] Yancy Loera MD LAB BLOOD ORDERABLES Final Result [facility] [address] [place] [address] * C4 complement (12/04/2024 3:59 PM [employer]) Pathologist [facility] Complement C4 18 10 - 40 mg/dL Comment:Testing performed by : [facility], [facility], [place]., [address] Blood 12/04/2024 3:59 PM [employer] 12/04/2024 8:23 PM [employer] Yancy Loera MD LAB BLOOD ORDERABLES Final Result [facility] [address] [place] [address] * (ABNORMAL) NATALIIA ab eval w/reflex (12/04/2024 3:59 PM [employer]) Pathologist [facility] NATALIIA ab Positive( A) Negative Comment: Interpretive Data Positive Screens will be reflexed to specific testing for Antibodies against the following antigens: Justina-1 Ab, DIRECTOR OF DIVERSITY AND INCLUSION Ab, Scl-70 Ab, Lozada Ab, SS-A/Ro Ab, and SS- B/La Ab. Further testing for dsDNA, Centromere, or Ribosomal P antibodies is suggested in patient with a positive screen and negative specific antibodies. Current interpretive data was last revised on 2023. Testing performed by: [facility], [address] [place] [address]., [address] Blood 12/04/2024 3:59 PM [employer] 12/04/2024 6:42 PM [employer] Yancy Loera MD LAB BLOOD ORDERABLES Final Result Performing Organization Address [facility] Co de Phone Number [facility] [address] [facility] [place] [address] * Ujstina-1 antibody (12/04/2024 3:59 PM [employer]) Pathologist [facility] Justina 1 Antibody, IgG <0.2 <=0.9 Ab Index Comment: Interpretive Data Negative: < 1.0 Ab Index Positive: > or = 1.0 Ab Index Current interpretive data was last revised on 2017. Testing performed by: [facility], [address] [place]., [address] Blood 12/04/2024 3:59 PM [employer] 12/04/2024 6:54 PM [employer] Yancy Loera MD LAB BLOOD ORDERABLES Final Result Performing Organization Address [facility] de Phone Number [facility] [address] [facility] [place] [address] * (ABNORMAL) CBC with auto differential (12/04/2024 3:59 PM [employer]) Pathologist [facility] WBC 5.6 3.8 - 9.9 K/cumm Comment:Testing performed by : [facility], [facility], [address] [place] [address] Hgb 9.6(L) 13.0 - 17.5 g/dL ELIDA HENRIQUEZ Comment:Testing performed by : [facility], [facility], [address] [place] [address] Hct 30.0(L) 38.9 - 50.3 % C[facility]ER [facility] Comment:Testing performed by : [place] [address] [place] [address] Plt 199 150 - 400 K/cumm [facility]ERVALENTINE [facility] Comment:Testing performed by : [place] [address] [place] [address] MPV 9.5 9.1 - 12.3 fL CERVALENTINE BJWCH Comment:Testing performed by : [place] [address] [place] [address] RBC 2.86(L) 4.30 - 5.80 M/cumm ELIDA BJWCH Comment:Testing performed by : [place] [address] [place] [address] MCV 105(H) 81 - 96 fL ELIDA BJWCH Comment:Testing performed by : [place] [address], [place] [address] MCH 33.6(H) 27.1 - 33.3 pg CERVALENTINE BJWCH Comment:Testing performed by : [place] [address] [place] [address] MCHC 32.0(L) 32.3 - 35.7 g/dL ELIDA [facility] Comment:Testing performed by : [place] [address] [place] [address] RDW CV 13.7 11.1 - 14.9 % ELIDA BJWCH Comment:Testing performed by : [place] [address] [place] [address] RDW SD 53.0(H) 35.7 - 48.1 fL ELIDA B[facility] Comment:Testing performed by : [place] [address] [place] [address] Blood 12/04/2024 3:59 PM [employer] 12/04/2024 4:01 PM [employer] Yancy Loera MD LAB BLOOD ORDERABLES Final Result Performing Organization Address City/[facility] Co de Phone Number [facility] [address] [facility] [employer] [address] [place], [place] [address] * Sjogren's syndrome B ab (12/04/2024 3:59 PM [employer]) Anti-NATALIIA, SS-B 0.3 <=0.9 Ab Index Comment: Interpretive Data Negative: < 1.0 Ab Index Positive: > or = 1.0 Ab Index Current interpretive data was last revised on 2017. Testing performed by: [facility], [address] [place] [address]., [address] Blood 12/04/2024 3:59 PM [employer] 12/04/2024 6:54 PM [employer] Yancy Loera MD LAB BLOOD ORDERABLES Final Result Performing Organization Address [facility] Co de Phone Number ELIDA [facility] [address] [facility]. [facility] [place] [address] * (ABNORMAL) Sjogren's syndrome A ab (12/04/2024 3:59 PM [employer]) Anti-NATALIIA, SS-A >8.0(H) <=0.9 Ab Index Comment: Interpretive Data Negative: < 1.0 Ab Index Positive: > or = 1.0 Ab Index Current interpretive data was last revised on 2017. Testing performed by: [facility], [address] [place] [address]., [address] Blood 12/04/2024 3:59 PM [employer] 12/04/2024 6:54 PM [employer] Yancy Loera MD LAB BLOOD ORDERABLES Final Result Performing Organization Address City/[facility] Co de Phone Number [facility] [address] [facility] [place] [address] * Erythrocyte sedimentation rate (12/04/2024 3:59 PM [employer]) Pathologist [facility] Erythrocyte sedimentation rate 17 1 - 20 mm/hr Comment:Testing performed by : [facility], [address] [address] Blood 12/04/2024 3:59 PM [employer] 12/04/2024 4:35 PM [employer] Yancy Loera MD LAB BLOOD ORDERABLES Final Result ELIDA [facility] [address] [place] [address] * C3 complement (12/04/2024 3:59 PM [employer]) Pathologist [facility] Complement C3 134 90 - 180 mg/dL Comment:Testing performed by : [facility], [address] [place] [address], [place]., [address] Blood 12/04/2024 3:59 PM [employer] 12/04/2024 8:23 PM [employer] Yancy Loera MD LAB BLOOD ORDERABLES Final Result Performing Organization Address City/[facility]/ZIP Co de Phone Number ELIDA [facility] [address] Department [place] [address] * CRP (acute phase) (12/04/2024 3:59 PM [employer]) Pathologist [facility] CRP <3.0 <=10.0 mg/L Comment:Testing performed by : [facility], [address] [place] [address] Blood 12/04/2024 3:59 PM [employer] 12/04/2024 4:35 PM [employer] Yancy Loera MD LAB BLOOD ORDERABLES Final Result [facility] [address] Department [place] [address] * (ABNORMAL) Comprehensive metabolic panel (12/04/2024 3:59 PM [employer]) Sodium 141 135 - 145 mmol/L Comment:Testing performed by : [facility], [address], [place] [address] Potassium, pl 4.8 3.3 - 4.9 mmol/L C[facility]ER [facility] Comment:Testing performed by : [facility], [address], [place] [address] Chloride 108 97 - 110 mmol/L C[facility]ER [facility] Comment:Testing performed by : [facility], [address], [place] [address] CO2 19(L) 22 - 32 mmol/L C[facility]ER [facility] Comment:Testing performed by : [facility], [address], [place] [address] Anion gap 14 2 - 15 mmol/L C[facility]ER [facility] Comment:Testing performed by : [facility], [address], [place] [address] BUN 58(H) 6 - 25 mg/dL C[facility]ER [facility] Comment:Testing performed by : [facility], [address], [place] [address] Creatinine 3.12(H) 0.80 - 1.30 mg/dL C[facility]ER [facility] Comment:Testing performed by : [facility], [address] [facility], [place] [address] Glucose 74 70 - 199 mg/dL CERNER [...] was last revised 2022. Testing performed by: [facility], [address], [place] [address] Calcium 9.5 8.5 - 10.3 mg/dL CERNER [facility] Comment:Testing performed by : [facility], [address], [place] [address] Bilirubin, total 0.3 0.1 - 1.2 mg/dL CERNER [facility] Comment:Testing performed by : [facility], [address], [place] [address] Protein, pl 6.3(L) 6.5 - 8.5 g/dL CERNER [facility] Comment:Testing performed by : [facility], [address], [place] [address] Albumin 3.6 3.5 - 5.0 g/dL CERNER BJW[facility] Comment:Testing performed by : [facility], [address], [place] [address] Alk phos 68 40 - 130 Units/L CERNER BJWCH Comment:Testing performed by : [facility], [address], [place] [address] ALT 34 7 - 55 Units/L CERNER BJW[facility] Comment:Testing performed by : [facility], [address], [place] [address] AST 32 10 - 50 Units/L CERNER BJWCH Comment:Testing performed by : [facility], [address], [place] [address] Blood 12/04/2024 3:59 PM [employer]ILROAD [employer] 12/04/2024 4:35 PM [employer]ILROAD [employer]ICE us Yancy Loera MD LAB BLOOD ORDERABLES Final Result [facility] [address] Department [place] [address] * CT Chest WO Contrast (12/01/2024 10:07 AM RAILROAD POLICE) Anatomical Region Laterality Modality Body N/A Computed Tomogra phy 12/04/2024 1:53 PM [employer]ILROAD POLICE Narrative 12/04/2024 2:30 PM RAILROAD POLICE EXAM DESCRIPTION: CT CHEST WO CONTRAST REASON [...] Carmela Hsieh M.D. FT: FT Report ID: [id number] Reading Location: [id number] Procedure Note Carmela Rodriguez MD - 12/04/2024 [...] Carmela Hsieh M.D. FT: FT Report ID: [id number] Reading Location: [id number] Pedro Pablo Sue MD IMG CT PROCEDURES Final Res ult * Cytology (11/26/2024 1:01 PM [employer]ILROAD POL[employer]) Fluid (Pancreas (Cytology)) 11/26/2024 1:01 PM [employer]ILROAD POLICE Narrative PATHOLOGY [facility] - 12/02/2024 1:29 PM RAILROAD POLICE [place] [id number] [facility], [place], [place] [address] Tele: Nadine Sun MD - Lockstitch Machine Operator Note to Patients: This report may contain [...] the details. CYTOLOGY REPORT Patient Name: UNIQUE FRANK. [address]: [address] [place] [address], [place], [place] [address] Gender: M : 1940 (Age: 84) Service: Gastro Location: [facility] Hospital #: [id number] Patient Type [facility] Taken: 11/26/2024 Reported: 12/02/2024 Physician(s): Dr. Marv Kaminski M.D. Vel Milton Early M.D. 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 Clerical Data Follows A; [id number], 08192`, 49554, 66149(2), [id number] REPORT IMAGES AND/OR SCANNED DOCUMENTS ONLY VIEWABLE IN PDF FORMAT The immunohistochemical test(s) cited in this report, if any, was developed and its performance characteristics determined by [facility] Pathology Department. It has not been cleared or approved by the U.S. Food and Drug Administration. The FDA has determined that such clearance or approval is not necessary. This test is used for clinical purposes. It should not be regarded as investigational or for research. [facility] Laboratory is certified under the Clinical Laboratory Improvement Amendments of 1988 (CLIA) as qualified to perform high complexity testing. Immunostains were performed on formalin-fixed paraffin embedded tissue using a polymer diaminobenzidine chromogen detection system. Antibodies used may include clone 1D5 (mouse monoclonal, estrogen receptor), clone [id number] (mouse monoclonal progesterone receptor), MIB-1 (mouse monoclonal, Ki- 67), and [id number] (rabbit polyclonal, c-kit). In the event that immunohistochemistry or special stains have been performed, attending physician has confirmed appropriateness of controls. Frozen section, operating room consultation, gross examination and dissection, and case sign out may have been performed in part or completely in the following laboratories: [facility], [address] [place] [address], [address] [place] [address]. 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 Referring MD: Barney Agustin, Vel Gilliam M.D. Medicines: Monitored Anesthesia Care, [...] 11/26/2024 11:36 AM Scope In: Scope Out: us Marv Kaminski MD ENDOSCOPY PROCEDURES Final Re sult from Last 3 Months Insurance [facility] [place] [place] [address] [place] [address] Advance Directives For more information, please contact: [phone] * Full Code (Latest Code Status on File) Date Activated Date Inactivated Comments 11/26/2024 11:44 AM 11/26/2024 6:45 PM * Full Code Date Activated Date Inactivated Comments 12/12/2023 3:26 PM 12/13/2023 7:42 PM * Full Code Date Activated Date Inactivated Comments 04/20/2019 9:05 AM 04/20/2019 2:46 PM * Full Code Date Activated Date Inactivated Comments 04/20/2019 9:04 AM 04/20/2019 9:05 AM Care Teams District Captain Relationship Specialty Start Date End Date Vel Gilliam MD [address] [facility] [place] [address] PCP - General Family Medicine 11/07/24 Fina Todd MD Mulling Machine Operator Dermatology 03/05/19 Quintin Downey MD Consulting Physician Nephrology 03/06/19 Bipin Wetzel MD Referring Physician Cardiovascular Disease 04/08/20 Yancy Loera MD [address] [facility] [address] [place] [address] Referring Physician Rheumatology 04/08/20 Dwayne Hercules MD [address] [place] [address] Consulting Physician Hematology and Oncology 09/30/20 Dwayne Hercules MD [address] [place] [address] Medical Oncologist/Hematologis t Hematology and Oncology 09/30/20 Nigel Elizalde MD [address] [facility] [address] [place] [address] Consulting Physician Urology 11/29/23 Issa Sanches MD [address] [facility] [address] [place] [address] Consulting Physician Cardiology 11/29/23 Miscellaneous, Not In File 12/13/23
--- OUTSIDE RECORDS SUMMARY | 2025-02-20 13:17 | XMS_ITS | CONTINUITY OF CARE DOCUMENT ---
Author Name patricia gomez Address Unknown Organization [facility] Office Address [address] [place] [address] [address] [place] [address] Phone [phone] Care Team Providers Care Mc Kay Stitcher Name Role Phone Karl ENCARNACION, Federico Unavailable NADER ENCARNACION, ALYSIA F Unavailable NADER ENCARNACION, ALYSIA F Unavailable [phone] INSURANCE PROVIDERS Payer name Policy type / Coverage type Amberg red constitution party ID [id number] [place] [employer] Medicare [id number]
--- OUTSIDE RECORDS SUMMARY | 2025-02-20 13:17 | XMS_ITS | Clinical Summary ---
Author Organization [facility] Address [address] [place] [address] Care Team Providers Care Automobile Body Customizer Name Role Phone Lynsey Swann SHUN Primary Care Provider [phone] Allergies Active Allergy Reactions Criticality Noted Date Comments Bupropion Rash Low 08/26/2011 Hydrocodone-Acetaminop hen Hallucinations 10/07/2005 Other reaction(s): Unknown Metoprolol Other (see comment) 07/30/2010 Patient HR is to low to tolerate beta alli. It decreased to 44 while on metoprolol. Medications ALPRAZolam 0.25 MG tablet Take 0.25 mg by mouth nightly as needed for Sleep. 11/15/2019 Active amlodipine 5 MG tablet TAKE TWO TABLETS BY MOUTH EVERY MORNING AND TAKE ONE TABLET BY MOUTH IN THE EVENING 07/25/2019 Active aspirin EC (ASPIRIN 81) 81 MG tabletIndicatio ns:stopped 12/17/19 for surgery Take 81 mg by mouth daily. Indications: stopped 12/17/19 for surgery 03/09/2016 Active doxazosin 8 MG tablet Take 8 mg by mouth nightly at bedtime. 10/07/2013 Active gabapentin 300 MG capsule Take 300 mg by mouth 2 (two) times a day. 03/26/2015 Active escitalopram 10 MG tablet Take 10 mg by mouth every morning. 04/21/2016 Active hydroxychloroqu ine 200 MG tablet Take 200 mg by mouth 2 (two) times daily. 11/12/2019 Active irbesartan 150 MG tablet Take 150 mg by mouth nightly at bedtime. 09/18/2019 Active simvastatin 10 MG tablet Take 10 mg by mouth nightly at bedtime. 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 Gender Identity Not on file Sexual Orientation Not on file Last Filed Vital Signs Vital Sign Reading Time Taken Comments Blood Pressure 136/56 12/24/2019 1:49 PM OIL WELL SERVICE OPERATOR Pulse 52 12/24/2019 1:49 PM OIL WELL SERVICE OPERATOR Temperature 36.4 C (97.6 F) 11/30/2019 9:17 AM OIL WELL SERVICE OPERATOR Respiratory Rate - - Oxygen Saturation 97% 11/30/2019 9:17 AM OIL WELL SERVICE OPERATOR Inhaled Oxygen Concentration - - Weight 87.5 kg (193 lb) 12/24/2019 1:49 PM OIL WELL SERVICE OPERATOR Height 167.6 cm (5' 6 ) 12/24/2019 1:49 PM OIL WELL SERVICE OPERATOR Body Mass Index 31.15 12/24/2019 1:49 PM OIL WELL SERVICE OPERATOR Plan of Treatment Health Maintenance Due Date Last Done Comments Zoster Vaccines (1 of 2) 1992 Annual Medicare Wellness Visit 2007 DTaP, Tdap and Td Vaccines (1 - Tdap) 10/25/2011 10/24/2011, 08/29/2008, 08/29/2008, Additional history exists RSV Immunization or 60+ Years (1 - 1-dose 75+ series) 2017 COVID-19 Vaccine ( - 2023-25 season) 2024 Pneumococcal Vaccine: 50+ Years Completed 06/01/2016, 03/28/2013, 08/29/2008 Meningococcal B Vaccine Aged Out No l onger eligible based on patient's age to complete this topic Meningococcal Vaccine Aged Out No ginny lalo eligible based on patient's age to complete this topic RSV Immunizations Under 20 Months Aged Out No longer eligible based on patient's age [place] [id number] ESSENCE Care Teams Automobile Body Customizer Relationship Specialty Start Date End Date Lynesy Swann FNP PCP - General Nurse Practitioner Family 11/30/19
--- OUTSIDE RECORDS SUMMARY | 2025-02-20 13:17 | XMS_ITS | Continuity of Care Document ---
Author Organization [facility] Address [address] [place] [address] Phone Care Team Providers Care Wood Crafter Name Role Phone Unavailable Unavailable Unavailable Procedures Procedure Date Office/outpatient visit,est, mod 2006 X-ray exam of knee, 1 or2 views 007 X-ray exam of both knees, standing Office/outpatient visit,est, mod 2005 Office/outpatient visit,est, mod 2005 Drain/inject major jointor bursa 2005 Depo Medrol Methylprednisolone 40 MG inj X-ray exam of knee, 3 views X-ray exam of knee, 3 views Office/outpatient visit,est, mod 2005 X-ray exam of knee, 3 views Office/outpatient visit,est, mod 2005 X-ray exam of knee, 1 or2 views 006 X-ray exam of knee, 3 views Advance Directives Directive Yes / No Effective Date File Name No Information Encounters Encounter Description Practice Location Reason(s) For Visit Diagnoses Date Provider Providers Copied on Encounter Office/outpat ient visit,est, mod [facility], [address], [place], [place], [id number], [place] tel:[phone] [facility] No Information 2-200 7 No Information Referring Provider: Gavin Larsen, [address] [facility] [address], [place], [address]. tel:[phone] Office/outpat ient visit,est, mod [facility], [address] [facility] [address], [place], [place], [id number], [place] tel:[phone] Recognition [facility] No Information 6 No Information Referring Provider: Gavin Larsen, [address], [place], [address]. tel:[phone] Office/outpat ient visit,est, [facility], [address] [facility] [address], [place], [place], [id number], [place] tel:[phone] Recognition [facility] No Information 6 No Information Referring Provider: Gavin Larsen, [address], [place], [address]. tel:[phone] Office/outpat ient visit,[facility], [facility], [address] [address], [place], [place], [id number], [place] tel:[phone] Recognition [facility] No Information 6 No Information Referring Provider: Gavin Larsen, [address], [place], [address]. tel:[phone] Office/outpat ient visit,[facility], [facility], [address], [id number], [place] tel:[phone] [facility] No Information 6 No Information Family History Family Member Type Diagnosis Age At Onset No Information Payers Payer name Insurance type Covered green party ID Setha hayder(s) [facility] [id number] Social History Type Description Quantity Date Captured Comments Sex Male Smoking Status No Information Chief Complaint And Reason For Visit No Information Reason For Referral Reason For Referral No Information History Of Present Illness Encounter Date Complaint History Of Prese nt Illness No Information Functional Status Date Functional Assessmen t No Information Instructions Date Instruction Additional Infor mation No Information Assessments Type Assessment Date No Information Patient Care Teams Name Effective Dates (start - stop) Status Members No Information
--- OUTSIDE RECORDS SUMMARY | 2025-02-20 13:17 | XMS_ITS | Clinical Summary ---
Author Organization [facility] Address [address] [place] [address] Care Team Providers Care Biofuels Plant Construction Worker Name Role Phone Vel Gilliam MD Primary Care Provider [phone] Allergies Active Allergy Reactions Criticality Noted Date Comments Amlodipine Rash Low 07/30/2010 Bupropion Hcl Rash Low 08/26/2011 Hydrocodone-Acetaminophen Unknown 10/07/2005 Metoprolol Tartrate Bradycardia Medium 07/30/2010 Medications ANDROGEL 1 % (25 mg/2.5 g) Transdermal GlPk Apply to skin as directed daily. Active aspirin (ECOTRIN EC) 81 mg Oral TbEC Take 81 mg by mouth daily. Active acetaminophen (TYLENOL) 500 mg Oral Cap Take 2 Caps by mouth daily at bedtime. Active lisinopril (PRINIVIL) 40 mg Oral tablet Take 1 Tab by mouth daily. 90 Tab 3 1 Active naproxen sodium (ALEVE) 220 mg Oral Tab Take 440 mg by mouth daily. Active Leander-3 Fatty Acids 1,000 mg Oral Cap Take 2,000 mg by mouth 2 times daily. 120 Cap 12 1 Active FOLIC ACID ORAL Take by mouth. Active glucosamine sulfate (GLUCOSAMINE) 500 mg Oral tablet Take 500 mg by mouth 2 times daily. Active hydrochlorothiaz howard 25 mg Oral tablet Take 1 Tab by mouth daily. for blood pressure 90 Tab 3 2 Active niacin ER 24 hour (SLO-NIACIN ER) 500 mg Oral TbSR Take 500 mg by mouth 2 times daily. Active sertraline (ZOLOFT) 25 mg Oral tablet Take 1 Tab by mouth daily. For mood 30 Tab 0 2 Active doxazosin (CARDURA) 8 mg Oral tablet Take 1 Tab by mouth daily at bedtime. For blood pressure 90 Tab 3 3 Active labetalol (NORMODYNE) 300 mg tablet Take 300 mg by mouth. Active amLODIPine (NORVASC) 5 mg tablet Take 5 mg by mouth 2 times daily. Active ALPRAZolam (XANAX) 0.25 mg tablet Take 0.25 mg by mouth 2 times daily. Active triamterene-hydr ochlorothiazide (DYAZIDE) 37.5-25 mg capsule Take 1 Cap by mouth daily geriatric assistant. Active simvastatin (ZOCOR) 20 mg tablet Take 20 mg by mouth Daily LATE. Active cyanocobalamin 1,000 mcg Tablet Take 1,000 mcg by mouth daily. Active pyridoxine (VITAMIN B6) 100 mg Tablet Take 50 mg by mouth daily. Active cholecalciferol, Vitamin D3, (VITAMIN D3) 1,000 unit Capsule Take by mouth daily. Active coenzyme Q10 Capsule Take 10 mg by mouth daily. Active hydroxychloroqui ne (PLAQUENIL) 200 mg tablet Take 1 Tablet by mouth daily. 5 Active amLODIPine (NORVASC) 5 mg tablet Take 2 Tablets by mouth daily. 5 Active metoprolol succinate (TOPROL XL) 100 mg Extended Release 24 hour tablet Take 1 Tablet by mouth daily. 5 Active montelukast (SINGULAIR) 10 mg tablet Take 10 mg by mouth daily at bedtime. 5 Active tamsulosin (FLOMAX) 0.4 mg capsule Take 1 Capsule by mouth daily. 5 Active simvastatin (ZOCOR) 10 mg tablet Take 1 Tablet by mouth daily. 5 Active Senexon-S 8.6-50 mg tablet Take 2 Tablets by mouth 2 times daily. 5 Active oxyCODONE (ROXICODONE) 5 mg tablet Take 1 Tablet by mouth every 4 hours as needed for Pain. 5 Active gabapentin (NEURONTIN) 300 mg capsule Take 1 Capsule by mouth 2 times daily. 5 Active finasteride (PROSCAR) 5 mg tablet Take 5 mg by mouth daily in the morning. 5 Active clonazePAM (KlonoPIN) 0.5 mg Tablet Take 0.5 mg by mouth 1 time daily as needed for Anxiety. 5 Active bumetanide (BUMEX) 1 mg tablet Take 1 mg by mouth daily in the morning. 5 Active ALPRAZolam (XANAX) 0.25 mg tablet Take 0.25 mg by mouth 2 times daily as needed for Anxiety. 5 Active fluticasone-umec lidinium-vilante rol (TRELEGY ELLIPTA) 100-62.5-25 mcg Disk with Device Take 1 Puff by inhalation daily. Active aspirin (JENNI CHEWABLE) 81 mg Tablet, Chewable Take 81 mg by mouth daily. Active aspirin (Jenni Low Dose Aspirin) 81 mg Tablet, Delayed Release (E.C.) Take 81 mg by mouth daily. Active albuterol sulfate HFA 90 mcg/actuation aerosol inhaler Take 2 Puffs by inhalation every 6 hours as needed for Shortness of Breath. Active sodium bicarbonate 650 mg tablet Take 650 mg by mouth daily. Active sennosides (SENOKOT) 8.6 mg tablet Take 8.6 mg by mouth daily. 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 Unspecified sleep apnea 05/05/2004 Overview (02/27/2009): CPAP Osteoarthrosis, unspecified whether generalized or localized, unspecified site 05/05/2004 Personal history of tobacco use, presenting hazards to health 10/24/1998 Overview (02/27/2009): Quit 1998; 40 pack years Resolved Problems Problem Noted Date Diagnosed Date Resolved Date Acute pharyngitis 04/19/2007 08/29/2008 Encounters Date Type Department Care Team Description 02/20/2025 10:30 AM CDT Office Visit [facility] Oncology and Hematology - [place] [address] [address] [place] [phone] Armond Esptein MD 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); Chronic anemia from Last 3 Months Immunizations Immunization Administration Dates Next Due (PNEUMOVAX 23)(50 YRS UP) PN EUMOCOCCAL POLYSACCHARIDE (PPV23) 0.5 ML, IM 08/29/2008 (TDVAX)(7 YRS UP) TETANUS AN D DIPHTHERIA TOXOIDS, ADSORBED (2 LF OF TETANUS TOXOID AND 2 LF OF DIPHTHERIA TOXOID), 0.5ML (PF), IM 08/29/2008,10/24/1997 Influenza Seasonal Unspecified Formulation IM ,07/21/2010 Influenza Vaccine Split 3+ Yrs IM 08/07/2008,11/2002 Family History Medical History Relation Name Comments Esophageal Cancer Brother 1 Cancer Brother 2 esophagus Diabetes Child 1 Heart Disease Father Respiratory Disease Father Liver Disease Mother Skin Cancer Sister 1 Other Sister 2 melanoma Relation Name Status Comments Brother 1 Brother 2 Child 1 Alive Child 2 Alive Father Mother Sister 1 Sister 2 Social History Tobacco Use Types [...] on file 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 Gender Identity Not on file Sexual Orientation Not on file Occupation Industry Job Start Date Job End Date Not on file Not on file Not on file Not on file Last Filed Vital Signs [...] Mass Index 26.6 02/20/2025 11:08 AM CDT Plan of Treatment Upcoming Encounters Date Type Department Care Team (Late st Contact Info) Description 03/13/2025 4:30 PM CDT Telephone Check Up [facility] Oncology and Hematology - [place] [address] [facility] [address] [place] [address] Armond Epstein MD [address] [facility] [address] [place] [address] Health Maintenance Due Date Last Done Comments ZOSTER VACCINE (1 of 2) 1961 DTAP/TDAP/TD VACCINES (1 - Tdap) 10/25/2011 10/24/2011, 08/29/2008, 10/24/1997 RSV VACCINE (60+ or ) (1 - 1-dose 75+ series) 2017 COVID-19 Vaccine (3 - Modern a risk series) 01/31/2021 01/03/2021, 12/06/2020 INFLUENZA VACCINE (#1) 2024 , 06/25/2020, 06/25/2020, Additional history exists PNEUMOCOCCAL VACCINE 50+ YEARS Completed 0 06/01/2016, 03/28/2013, 08/29/2008 COLORECTAL SCREENING Discontinued 04/20/2019, 07/01/2016, 07/01/2016, Additional history exists Colorectal Cancer Screening Discontinued FIT-DNA Q 3 years Discontinued FIT/FOBT Q 1 year Discontinued Flex Sig/CT Colonography Q 5 [place] [address] MEDICARE PART A AND B [facility] [place] [address] [facility] Advance Directives For more information, please contact: [phone] * Full Code (Latest Code Status on File) Date Activated Date Inactivated Comments 09/25/2009 8:40 AM 09/26/2009 2:01 AM Care Teams Biofuels Plant Construction Worker Relationship Specialty Start Date End Date Vel Gilliam MD [address] [place] [address] PCP - General Family Practice 02/14/14
[2025-02-20 17:03] LABS: Iron 61 ug/dL (49-181)
[2025-02-20 17:10] LABS: Alanine Aminotransferase 29 U/L (6-50); Albumin Level 4.3 g/dL (3.5-5.1); Alkaline Phosphatase 61 U/L (38-126); Anion Gap 13 mmol/L (4-12); Aspartate Amino Transferase 32 U/L (17-59); Bilirubin,Total 0.6 mg/dL (0.2-1.3); Blood Urea Nitrogen 93 mg/dL (9-20); Calcium 9.3 mg/dL (8.4-10.2); Carbon Dioxide 19 mmol/L (22-30); Chloride 108 mmol/L (98-107); Estimated Glomerular Filt Rate 12; Glucose 81 mg/dL (65-110); Sodium 140 mmol/L (137-145)
[2025-02-20 17:13] LABS: Percent Iron Saturation 17 % (20-50)
[2025-02-20 17:35] LABS: Immunoglobulin A 124 mg/dL (70-400); Immunoglobulin G 901 mg/dL (700-1600)
[2025-02-20 18:36] LABS: Folic Acid > 20.0 ng/mL (2.76->20)
[2025-02-20 18:39] LABS: Immunoglobulin M < 25 mg/dL (40-230)
[2025-02-20 19:52] LABS: Vitamin B12 > 1000.0 pg/mL (239-931)
[2025-02-22 11:49] LABS: Kappa\\Lambda Light Chains 1.79 (0.26-1.65); Lambda Light Chain 42.9 mg/L (5.7-26.3)
[2025-02-24 03:09] LABS: Protein, Total 6.5 g/dL (6.1-8.1)
[2025-02-25 16:18] LABS: Alpha 1 Globulin 0.4 g/dL (0.2-0.3); Alpha 2 Globulin 0.7 g/dL (0.5-0.9); Beta 1 Globulin 0.5 g/dL (0.4-0.6); Gamma Globulin 0.8 g/dL (0.8-1.7)
== END 2025-02-20 12:00 | disposition home or self-care (01) ==
LOC: ANHLAB 12:00
PROVIDERS: PCP Family Medicine; Visit Provider Internal Medicine Hematology & Oncology
DX: D47.2 Monoclonal gammopathy (principal); D64.9 Anemia, unspecified
CPT/HCPCS: 36415; 80053; 82607; 82728; 82746; 82784; 83540; 83550; 83883; 84155; 84165; 85025

== ENCOUNTER 2025-03-07 14:51 | Inpatient (IN) | payer OTHER, SELFPAY ==
[2025-03-07] VITALS (13 sets, daily range): BP systolic 97–162; BP diastolic 58–89; PULSE 70–86; RESP 18–25; TEMP 36.4–36.6; O2SAT 91–99; BMI 28.2
--- NOTE | ~2025-03-07 | XR_ITS ---
XR chest 2V 03/07/2025 15:20 Indication: Shortness of breath and cough Procedure: 2 view chest Comparison: Comparison to multiple prior studies sequentially, with oldest reviewed study dated 07/24. Findings: Cardiomegaly. Pacemaker leads are stable. Mild interstitial edema. Bilateral pleural effusi ons, left greater than right. No pneumothorax. Impression: 1: Mild interstitial edema with bilateral pleural effusions. Reviewed, dictated and finalized at location A. Impression: 1: Mild interstitial edema with bilateral pleural effusions.
--- NOTE | ~2025-03-07 | XR_ITS ---
EXAMINATION: XR chest 1V portable DATE: 03/09/2025 10:01 INDICATION: Shortness of breath. Congestive heart failure. TECHNIQUE: frontal view of the chest was obtained. COMPARISON: Chest radiograph dated 03/07/2025 FINDINGS: Gradient of basilar predominant hazy airspace opacities in the bilateral mid and lower lung zones con sistent with small to moderate-sized posterior layering bilateral pleural effusions with associated b asilar atelectasis and/or pneumonia. No pulmonary edema or pneumothorax. Cardiomegaly. Dual lead pace maker seen with leads projecting over the expected locations of the right atrium and right ventricle. IMPRESSION: 1. Small to moderate-sized posterior layering bilateral pleural effusions with associated bibasilar a telectasis and/or pneumonia. 2. Cardiomegaly. Reviewed, dictated and finalized at location A. IMPRESSION: 1. Small to moderate-sized posterior layering bilateral pleural effusions with associated bibasilar atelectasis and/or pneumonia. 2. Cardiomegaly.
--- OUTSIDE RECORDS SUMMARY | 2025-03-07 14:54 | XMS_ITS | Encounter Summary ---
Author Organization [facility] Address [address] [place] [address] Care Team Providers Care Preparer Name Role Phone Vel Gilliam MD Primary Care Provider [phone] Encounter Details Date Type Department Care Team (Late Contact Info) Description 09/02/2004 Outpatient Historical [place] [address] 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 Gender Identity Not on file Sexual Orientation Not on file documented as of this encounter Plan of Treatment Upcoming Encounters Date Type Department Care Team (Late Contact Info) Description 03/13/2025 4:30 PM CDT Telephone Check Up [facility] Oncology and Hematology - [place] [address] [facility] [address] [place] [address] Armond Epstein MD [address] [facility] [address] [place] [address] documented as of this encounter Visit Diagnoses Diagnosis Peripheral vascular disease, unspecified- Primary documented in this encounter Care Teams Preparer Relationship Specialty Start Date End Date Vel Gilliam MD [address] [place] [id number] PCP - General Family Practice 02/14/14 documented as of this encounter
--- OUTSIDE RECORDS SUMMARY | 2025-03-07 14:54 | XMS_ITS | Encounter Summary ---
Author Organization [facility] Address [address] [place] [address] Care Team Providers Care Ply Bander Name Role Phone Vel Gilliam MD Primary Care Provider [phone] Encounter Details Date Type Department Care Team (Latest Contact Info) Description 09/14/2006 Outpatient Historical [facility] [place] [address] 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 [address] [place] [address] documented as of this encounter Visit Diagnoses Diagnosis Pain in limb- Primary documented in this encounter Care Teams Ply Bander Relationship Specialty Start Date End Date Vel Gliliam MD [address] [place] [address] PCP - General Family Practice 02/14/14 documented as of this encounter
--- OUTSIDE RECORDS SUMMARY | 2025-03-07 14:54 | XMS_ITS | Encounter Summary ---
Author Organization [facility] Address [address] [place] [address] Care Team Providers Care State Farm Agent Name Role Phone Vel Gilliam MD Primary Care Provider [phone] Encounter Details Date Type Department Care Team (Late st Contact Info) Description 12/03/2004 Outpatient Historical [facility] Family Medicine N[place]anson [address] [facility] [address] [place] [address] [place] [address] [address] 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 Gender Identity Not on file Sexual Orientation Not on file documented as of this encounter Last Filed Vital Signs Vital Sign Reading Time Taken Comments Blood Pressure 160/86 12/03/2004 9:45 AM AIRCRAFT MAINTENANCE INSTRUCTOR Pulse 56 12/03/2004 9:45 AM AIRCRAFT MAINTENANCE INSTRUCTOR Temperature - - Respiratory Rate 14 12/03/2004 9:45 AM AIRCRAFT MAINTENANCE INSTRUCTOR Oxygen Saturation - - Inhaled Oxygen Concentration - - Weight 87.7 kg (193 lb 5 oz) 12/03/2004 9:45 AM AIRCRAFT MAINTENANCE INSTRUCTOR Height - - Body Mass Index - - documented in this encounter Plan of Treatment Upcoming Encounters Date Type Department Care Team (Late st Contact Info) Description 03/13/2025 4:30 PM CDT Telephone Check Up [facility] Oncology and Hematology - Antonio [address] [place] [address] Armond Epstein MD [address] [facility] [address] [place] [address] documented as of this encounter Visit Diagnoses Not on filedocumented in this encounter Care Teams State Farm Agent Relationship Specialty Start Date End Date Vel Gilliam MD [address] [place] [address] PCP - General Family Practice 02/14/14 documented as of this encounter
--- OUTSIDE RECORDS SUMMARY | 2025-03-07 14:54 | XMS_ITS | Clinical Summary ---
Author Organization [facility] Address [address] [address] Phone Care Team Providers Care Integration Software Developer Name Role Phone Javon Viveros DO Unavailable [phone] Lynsey Nur MD Primary Care Provider Medications polyethylene glycol (MIRALAX) Powder Mix the [...] Additional history exists SARS-COV-2 Immunization ( - 2023- season) 2024 02/24/2022, 08/25/2021, 01/03/2021, Additional history [...] [place] [address] MEDICARE C [place] Care Teams Integration Software Developer Relationship Specialty Start Date End Date Lynsey Nur MD [address] [facility] [address] [place] [address] PCP - General Family Medicine 12/06/20 Javon Viveros DO Gastroenterology 05/12/16
--- OUTSIDE RECORDS SUMMARY | 2025-03-07 14:54 | XMS_ITS | Encounter Summary ---
Author Organization [facility] Address [address] [place] [address] Care Team Providers Care Top Precipitator Operator Helper Name Role Phone Vel Gilliam MD Primary Care Provider [phone] Encounter Details Date Type Department Care Team (Late Contact Info) Description 05/12/2006 Outpatient Historical [facility] Family Medicine Nay Sw[place] [address] [facility] [address] [place] [address] [place] [address] [address] 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 [address] PCP - General Family Practice 02/14/14 documented as of this encounter
--- OUTSIDE RECORDS SUMMARY | 2025-03-07 14:54 | XMS_ITS | Encounter Summary ---
Author Organization [facility] Address [address] [place] [address] Care Team Providers Care Tube Carrier Name Role Phone Fina Todd MD Unavailable [phone] Quintin Downey MD Unavailable [phone] Bipin Wetzel MD Unavailable Yancy Romeo MD Unavailable Maged Hercules MD Unavailable Maged Hercules MD Unavailable Nigel Elizalde MD Unavailable [phone] Issa Sanches MD Unavailable [phone] Miscellaneous, Not In File Unavailable Unava Vel Lazo MD Primary Care Provider [phone] Encounter Details Date Type Department Care Team (Late st Contact Info) Description 01/21/2025 Results Follow-Up [facility] Medical Group Cardiology [address] [place] [address] Maged Fowler MD [employer] [address] Social History Tobacco Use Types [...] on file 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 Gender Identity Male 09/15/2020 1:55 PM LIVERY CAR DRIVER Sexual Orientation Straight 03/02/2020 6: 25 [...] on filedocumented in this encounter Care Teams Tube Carrier Relationship Specialty Start Date End Date Vel Gilliam MD [address] [place] [address] PCP - General Family Medicine 11/07/24 Fina Todd MD Mash Filter Cloth Changer Dermatology 03/05/19 Quintin Downey MD Consulting Physician Nephrology 03/06/19 Bipin Wetzel MD Referring Physician Cardiovascular Disease 04/08/20 Yancy Romeo MD [address] [facility] [address] [place] [address] Referring Physician Rheumatology 04/08/20 Maged Hercules MD [address] [place] [address] Consulting Physician Hematology and Oncology 09/30/20 Maged Hercules MD [address] [place] [address] Medical Oncologist/Hematologis t Hematology and Oncology 09/30/20 Nigel Elizalde MD [address] [place] [address] Consulting Physician Urology 11/29/23 Issa Sanches MD [address] [place] [address] Consulting Physician Cardiology 11/29/23 Miscellaneous, Not In File 12/13/23 documented as of this encounter
--- OUTSIDE RECORDS SUMMARY | 2025-03-07 14:54 | XMS_ITS | Encounter Summary ---
Author Organization [facility] Address [address] [place] [address] Care Team Providers Care Hand Cigar Maker Name Role Phone Vel Gilliam MD Primary Care Provider [phone] Encounter Details Date Type Department Care Team (Late st Contact Info) Description 08/04/2005 Outpatient Historical [facility] Support Serv. (Adt Cardiology-[facility]) [address] 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 Gender Identity Not on file Sexual Orientation Not on file documented as of this encounter Plan of Treatment Upcoming Encounters Date Type Department Care Team (Late st Contact Info) Description 03/13/2025 4:30 PM CDT Telephone Check Up [facility] Oncology and Hematology - [place] [address] [facility] [address] [place] [address] Armond Epstein MD [address] [facility] [address] [place] [address] documented as of this encounter Visit Diagnoses Not on filedocumented in this encounter Care Teams Hand Cigar Maker Relationship Specialty Start Date End Date Vel Gilliam MD [address] [place] [address] PCP - General Family Practice 02/14/14 documented as of this encounter
--- OUTSIDE RECORDS SUMMARY | 2025-03-07 14:54 | XMS_ITS | Encounter Summary ---
Author Organization [facility] Address [address] [place] [address] Care Team Providers Care Aircraft Inspector Name Role Phone Vel Gilliam MD Primary Care Provider [phone] Encounter Details Date Type Department Care Team (Late Contact Info) Description 10/07/2005 Outpatient Historical [facility] Family Medicine [place] [address] [facility] [address] [place] [address] [place] [address] [facility] [place] [address] Social History Tobacco Use Types Packs/Day Years Used Date Smoking Tobacco: Never Assessed Sex and Gender Information Value Date Recorded Sex Assigned at Not on file Legal Sex Male 4:23 AM OPTIMIZATION CONSULTANT Gender Identity Not on file Sexual Orientation Not on file documented as of this encounter Last Filed Vital Signs Vital Sign Reading Time Taken Comments Blood Pressure 150/70 10/07/2005 9:15 AM OPTIMIZATION CONSULTANT Pulse 50 10/07/2005 9:15 AM OPTIMIZATION CONSULTANT Temperature - - Respiratory Rate - - Oxygen Saturation - - Inhaled Oxygen Concentration - - Weight 93 kg (205 lb) 10/07/2005 9:15 AM OPTIMIZATION CONSULTANT Height - - Body Mass Index - - documented in this encounter Plan of Treatment Upcoming Encounters Date Type Department Care Team (Late st Contact Info) Description 03/13/2025 4:30 PM CDT Telephone Check Up [facility] Oncology and Hematology - [place] [address] [place] [address] Armond Epstein MD [address] [facility] [address] [place] [address] documented as of this encounter Visit Diagnoses Not on filedocumented in this encounter Care Teams Aircraft Inspector Relationship Specialty Start Date End Date Vel Gilliam MD [address] [place] [address] PCP - General Family Practice 02/14/14 documented as of this encounter
--- OUTSIDE RECORDS SUMMARY | 2025-03-07 14:54 | XMS_ITS | Encounter Summary ---
Author Organization [facility] Address [address] [place] [address] Care Team Providers Care Manager Of Drilling Name Role Phone Vel Gilliam MD Primary Care Provider [phone] Encounter Details Date Type Department Care Team (Late Contact Info) Description 07/25/[address] [facility] Family Medicine [place] [address] [facility] [address] [place] [address] [place] [address] 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 Oncology and Hematology - [place] [address] [facility] [address] [place] [address] Armond Epstein MD [address] [facility] [address] [place] [address] documented as of this encounter Visit Diagnoses Not on filedocumented in this encounter Care Teams Manager Of Drilling Relationship Specialty Start Date End Date Vel Gilliam MD [address] [place] [address] PCP - General Family Practice 02/14/14 documented as of this encounter
--- OUTSIDE RECORDS SUMMARY | 2025-03-07 14:54 | XMS_ITS | Encounter Summary ---
Author Organization [facility] Address [address] [place] [address] Care Team Providers Care Electrocardiogram Technician Name Role Phone Vel Gliliam MD Primary Care Provider [phone] Encounter Details Date Type Department Care Team (Latest Contact Info) Description 12/25/2003 Outpatient Historical [facility] KARLENE Mcconnell, [place] [address] [facility] [place] [address] PAIN IN LIMB (Primary Dx) Social History Tobacco Use Types Packs/Day Years Used Date Smoking Tobacco: Never Assessed Sex and Gender Information Value Date Recorded Sex Assigned at Not on file Legal Sex Male 4:23 AM TAX SENIOR ASSOCIATE Gender Identity Not on file Sexual Orientation Not on file documented as of this encounter Plan of Treatment Upcoming Encounters Date Type Department Care Team (Late st Contact Info) Description 03/13/2025 4:30 PM CDT Telephone Check Up [facility] Oncology and Hematology - [place] [address] [facility] [address] [place] [address] Armond Epstein MD [address] [facility] [address] [place] [address] documented as of this encounter Visit Diagnoses Diagnosis Pain in limb- Primary documented in this encounter Care Teams Electrocardiogram Technician Relationship Specialty Start Date End Date Vel Gilliam MD [address] [place] [address] PCP - General Family Practice 02/14/14 documented as of this encounter
--- OUTSIDE RECORDS SUMMARY | 2025-03-07 14:54 | XMS_ITS | Encounter Summary ---
Author Organization [facility] Address [address] [place] [address] Care Team Providers Care Civil Designer Name Role Phone Vel Gilliam MD Primary Care Provider Encounter Details Date Type Department Care Team (Late st Contact Info) Description 03/07/2008 Outpatient Historical [facility] Family Medicine [place] [address] [facility] [address] [place] [address] [place] [address] [facility] [place] [address] Social History Tobacco Use Types Packs/Day Years Used Date Smoking Tobacco: Never Assessed Sex and Gender Information Value Date Recorded Sex Assigned at Not on file Legal Sex Male 4:23 AM CHAIN SAW OPERATOR Gender Identity Not on file Sexual Orientation Not on file documented as of this encounter Plan of Treatment Upcoming Encounters Date Type Department Care Team (Late st Contact Info) Description 03/13/2025 4:30 PM CDT Telephone Check Up [facility] Oncology and Hematology - [place] [address] [facility] [address] [place] [address] Armond Epstein MD [address] [facility] [address] [place] [address] documented as of this encounter Visit Diagnoses Not on filedocumented in this encounter Care Teams Civil Designer Relationship Specialty Start Date End Date Vel Gilliam MD [address] [place] [address] PCP - General Family Practice 02/14/14 documented as of this encounter
--- OUTSIDE RECORDS SUMMARY | 2025-03-07 14:54 | XMS_ITS | Encounter Summary ---
Author Organization [facility] Address [address] [place] [address] Care Team Providers Care Manager Of Revenue Name Role Phone Vel Gilliam MD Primary Care Provider [phone] Encounter Details Date Type Department Care Team (Late st Contact Info) Description 09/14/2006 Outpatient Historical [facility] Supp Svcs Blood Flow [address] [place] [address] Manish Granado MD NO ADDRESS ON FILE Social History Tobacco Use Types Packs/Day Years Used Date Smoking Tobacco: Never Assessed Sex and Gender Information Value Date Recorded Sex Assigned at Not on file Legal Sex Male 4:23 AM HEAD OF GLOBAL STRATEGIC PARTNERSHIPS Gender Identity Not on file Sexual Orientation Not on file documented as of this encounter Plan of Treatment Upcoming Encounters Date Type Department Care Team (Late Contact Info) Description 03/13/2025 4:30 PM CDT Telephone Check Up [facility] Oncology and Hematology - [place] [address] [facility] [address] [place] [address] Armond Epstein MD [address] [facility] [address] [place] [address] documented as of this encounter Visit Diagnoses Not on filedocumented in this encounter Care Teams Manager Of Revenue Relationship Specialty Start Date End Date Vel Gilliam MD [address] [place] [address] PCP - General Family Practice 02/14/14 documented as of this encounter
--- OUTSIDE RECORDS SUMMARY | 2025-03-07 14:54 | XMS_ITS | Encounter Summary ---
Author Organization [facility] Address [address] [place] [address] Care Team Providers Care Loan Review Analyst Name Role Phone Vel Gilliam MD Primary Care Provider [phone] Encounter Details Date Type Department Care Team (Late st Contact Info) Description 03/07/2008 Outpatient Historical [facility] Family Medicine [place] [address] [facility] [address] [place] [address] [place] [address] [facility] [place] [address] Social History Tobacco Use Types Packs/Day Years Used Date Smoking Tobacco: Never Assessed Sex and Gender Information Value Date Recorded Sex Assigned at Not on file Legal Sex Male 4:23 AM LITERACY COORDINATOR Gender Identity Not on file Sexual Orientation Not on file documented as of this encounter Plan of Treatment Upcoming Encounters Date Type Department Care Team (Late st Contact Info) Description 03/13/2025 4:30 PM CDT Telephone Check Up [facility] Oncology and Hematology - [place] [address] [facility] [address] [place] [address] Armond Epstein MD [address] [facility] [address] [place] [address] documented as of this encounter Visit Diagnoses Not on filedocumented in this encounter Care Teams Loan Review Analyst Relationship Specialty Start Date End Date Vel Gilliam MD [address] [place] [address] PCP - General Family Practice 02/14/14 documented as of this encounter
--- OUTSIDE RECORDS SUMMARY | 2025-03-07 14:54 | XMS_ITS | Encounter Summary ---
Author Organization [facility] Address [address] [place] [address] Care Team Providers Care Blade Aligner Name Role Phone Vel Gilliam MD Primary Care Provider [phone] Encounter Details Date Type Department Care Team (Late st Contact Info) Description 03/07/2008 Outpatient Historical [facility] Family Medicine [place] [address] [facility] [address] [place] [address] [place] [address] [facility] [place] [address] Social History Tobacco Use Types Packs/Day Years Used Date Smoking Tobacco: Never Assessed Sex and Gender Information Value Date Recorded Sex Assigned at Not on file Legal Sex Male 4:23 AM ENVIRONMENTAL SERVICES SUPERVISOR Gender Identity Not on file Sexual Orientation Not on file documented as of this encounter Plan of Treatment Upcoming Encounters Date Type Department Care Team (Late st Contact Info) Description 03/13/2025 4:30 PM CDT Telephone Check Up [facility] Oncology and Hematology - [place] [address] [facility] [address] [place] [address] Armond Epstein MD [address] [facility] [address] [place] [address] documented as of this encounter Visit Diagnoses Not on filedocumented in this encounter Care Teams Blade Aligner Relationship Specialty Start Date End Date Vel Gilliam MD [address] [place] [address] PCP - General Family Practice 02/14/14 documented as of this encounter
--- OUTSIDE RECORDS SUMMARY | 2025-03-07 14:54 | XMS_ITS | Encounter Summary ---
Author Organization [facility] Address [address] [place] [address] Care Team Providers Care Dyed Raw Stock Blower Feeder Name Role Phone Vel Gilliam MD Primary Care Provider [phone] Encounter Details Date Type Department Care Team (Late st Contact Info) Description 05/12/2006 Orders Only [facility] Family Medicine [place] [address] [place] [address] [place] [address] [address] [place] [address] Social History Tobacco Use Types Packs/Day Years Used Date Smoking Tobacco: Never Assessed Sex and Gender Information Value Date Recorded Sex Assigned at Not on file Legal Sex Male 4:23 AM COST REPORT CLERK Gender Identity Not on file Sexual [...] CDT Telephone Check Up [facility] Oncology and Hematology - [place] [address] [place] [address] [address] [place] [address] Armond Epstein MD [address] [facility] [address] [place] [address] documented as of this encounter Visit Diagnoses Not on filedocumented in this encounter Care Teams Dyed Raw Stock Blower Feeder Relationship Specialty Start Date End Date Vel Gilliam MD [address] [place] [address] PCP - General Family Practice 02/14/14 documented as of this encounter
--- OUTSIDE RECORDS SUMMARY | 2025-03-07 14:54 | XMS_ITS | Encounter Summary ---
Author Organization [facility] Address [address] [place] [address] Care Team Providers Care Real Estate Services Coordinator Name Role Phone Vel Gilliam MD Primary Care Provider [phone] Encounter Details Date Type Department Care Team (Late st Contact Info) Description 06/13/2007 Orders Only [facility] Medicine [facility] [address] [facility] [address] [place] [address] [place] [address] [place] [address] Social History Tobacco Use Types Packs/Day Years Used Date Smoking Tobacco: Never Assessed Sex and Gender Information Value Date Recorded Sex Assigned at Not on file Legal Sex Male 4: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 ALTERNATIVE PHONE NUMBER: [phone] WHO CALLED: Patient called. PHARMACY NUMBER: fax to Med Co SECTION 1: REQUESTED ACTION [email or web address] 06/13/07 at [...] 06/13/07 at 04:24 pm. Requested faxed to [facility]. LMOR advising pt...tono Electronically Signed by: Tono Weinstein on Wednesday, June 13, 2007 documented in this encounter Plan of Treatment Upcoming Encounters Date Type Department Care Team (Late st Contact Info) Description 03/13/2025 4:30 PM CDT Telephone Check Up [facility] Oncology and Hematology - [place] [address] [place] [address] [address] [place] [address] Armond Epstein MD [address] [facility] [address] [place] [address] documented as of this encounter Visit Diagnoses Not on filedocumented in this encounter Care Teams Real Estate Services Coordinator Relationship Specialty Start Date End Date Vel Gilliam MD [address] [place] [address] PCP - General Family Practice 02/14/14 documented as of this encounter
--- OUTSIDE RECORDS SUMMARY | 2025-03-07 14:54 | XMS_ITS | Encounter Summary ---
Author Organization [facility] Address [address] [place] [address] Care Team Providers Care Automotive Maintenance Technician Name Role Phone Vel Gilliam MD Primary Care Provider [phone] Encounter Details Date Type Department Care Team (Late Contact Info) Description 09/12/2007 Outpatient Historical [facility] Family Medicine [place] [address] [employer] [facility] [address] [place] [address] [place] [address] [address] 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 Gender Identity Not on file Sexual Orientation Not on file documented as of this encounter Last Filed Vital Signs Vital Sign Reading Time Taken Comments Blood Pressure 142/68 09/12/2007 1:00 PM WAREHOUSE TECHNICIAN Pulse 80 09/12/2007 1:00 PM WAREHOUSE TECHNICIAN Temperature - - Respiratory Rate - - Oxygen Saturation - - Inhaled Oxygen Concentration - - Weight 93 kg (205 lb) 09/12/2007 1:00 PM WAREHOUSE TECHNICIAN Height - - Body Mass Index - - documented in this encounter Plan of Treatment Upcoming Encounters Date Type Department Care Team (Late st Contact Info) Description 03/13/2025 4:30 PM CDT Telephone Check Up [facility] Oncology and Hematology - [place] [address] [place] [address] Armond Epstein MD [address] [facility] [address] [place] [address] documented as of this encounter Visit Diagnoses Not on filedocumented in this encounter Care Teams Automotive Maintenance Technician Relationship Specialty Start Date End Date Vel Gilliam MD [address] [place] [address] PCP - General Family Practice 02/14/14 documented as of this encounter
--- OUTSIDE RECORDS SUMMARY | 2025-03-07 14:54 | XMS_ITS | Encounter Summary ---
Author Organization [facility] Address [address] [place] [address] Care Team Providers Care Ctc Operator Name Role Phone Vel Gilliam MD Primary Care Provider [phone] Encounter Details Date Type Department Care Team (Late Contact Info) Description 04/01/2005 Outpatient Historical [facility] Family Medicine [place] [address] [employer] [facility] [address] [place] [address] [place] [address] [employer] 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 [address] PCP - General Family Practice 02/14/14 documented as of this encounter
--- OUTSIDE RECORDS SUMMARY | 2025-03-07 14:54 | XMS_ITS | Encounter Summary ---
Author Organization [facility] Address [address] [place] [address] Care Team Providers Care Seat Trimmer Name Role Phone Vel Gillaim MD Primary Care Provider Encounter Details Date Type Department Care Team (Late Contact Info) Description 07/25/2003 Outpatient Historical [facility] Family Medicine [place] [address] [address] [facility] [address] [place] [address] [place] [address] [facility] [place] [address] Social History Tobacco Use Types Packs/Day Years Used Date Smoking Tobacco: Never Assessed Sex and Gender Information Value Date Recorded Sex Assigned at Not on file Legal Sex Male 4:23 AM DRIVER'S LICENSE EXAMINER Gender Identity Not on file Sexual Orientation Not on file documented as of this encounter Plan of Treatment Upcoming Encounters Date Type Department Care Team (Late st Contact Info) Description 03/13/2025 4:30 PM CDT Telephone Check Up [facility] Oncology and Hematology - Antonio [address] [facility] [address] [place] [address] Armond Epstein MD [address] [facility] [address] [place] [address] documented as of this encounter Visit Diagnoses Not on filedocumented in this encounter Care Teams Seat Trimmer Relationship Specialty Start Date End Date Vel Gilliam MD [address] [place] [address] PCP - General Family Practice 02/14/14 documented as of this encounter
--- OUTSIDE RECORDS SUMMARY | 2025-03-07 14:54 | XMS_ITS | Encounter Summary ---
Author Organization [facility] Address [address] [place] [address] Care Team Providers Care Senior Research Manager Name Role Phone Vel Gilliam MD Primary Care Provider [phone] Encounter Details Date Type Department Care Team (Late Contact Info) Description 09/08/2006 Outpatient Historical [facility] Family Medicine [facility] [address] [facility] [address] [place] [address] Abril Hsieh MD NO ADDRESS ON FILE Social History Tobacco Use Types Packs/Day Years Used Date Smoking Tobacco: Never Assessed Sex and Gender Information Value Date Recorded Sex Assigned at Not on file Legal Sex Male 4:23 AM RADIOLOGIC TECHNOLOGIST CHIEF Gender Identity Not on file Sexual Orientation Not on file documented as of this encounter Last Filed Vital Signs Vital Sign Reading Time Taken Comments Blood Pressure 140/74 09/08/2006 3:10 PM RADIOLOGIC TECHNOLOGIST CHIEF Pulse 56 09/08/2006 3:10 PM RADIOLOGIC TECHNOLOGIST CHIEF Temperature - - Respiratory Rate - - Oxygen Saturation - - Inhaled Oxygen Concentration - - Weight 92.3 kg (203 lb 8 oz) 09/08/2006 3:10 PM RADIOLOGIC TECHNOLOGIST CHIEF Height - - Body Mass Index - - documented in this encounter Plan of Treatment Upcoming Encounters Date Type Department Care Team (Late Contact Info) Description 03/13/2025 4:30 PM CDT Telephone Check Up [facility] Oncology and Hematology - [place] [address] [place] [address] Armond Epstein MD [address] [facility] [address] [place] [address] documented as of this encounter Visit Diagnoses Not on filedocumented in this encounter Care Teams Senior Research Manager Relationship Specialty Start Date End Date Vel Gilliam MD [address] [place] [address] PCP - General Family Practice 02/14/14 documented as of this encounter
--- OUTSIDE RECORDS SUMMARY | 2025-03-07 14:54 | XMS_ITS | Encounter Summary ---
Author Organization [facility] Address [address] [place] [address] Care Team Providers Care Spooler Rubber Strand Name Role Phone Vel Gilliam MD Primary Care Provider [phone] Encounter Details Date Type Department Care Team (Late st Contact Info) Description 09/12/2007 Orders Only [facility] Family Medicine [facility] [address] [employer] [facility] [address] [place] [address] [place] [address] [employer] [facility] [place] [address] Social History Tobacco Use Types Packs/Day Years Used Date Smoking Tobacco: Never Assessed Sex and Gender Information Value Date Recorded Sex Assigned at Not on file Legal Sex Male 4:23 AM HOT STAMP OPERATOR Gender Identity Not on file Sexual Orientation Not on file documented as of this encounter Progress Notes * Gavin Mcconnell MD - 03/07/2008 6:59 PM CDT NURSE NAME: Pari Lewis A WEIGHT: 205lbs. BLOOD PRESSURE: 136/74. Right Arm [...] PREVENTION DISCUSSED: d. DIET AND EXERCISE DISCUSSED: buck. ADVANCED DIRECTIVES DISCUSSED: d. LAST DATE COLONOSCOPY: 1998. LAST FLU VACCINE:2006 LAST TD: 1997 LAST PNEUMOCOCCAL:2002 ASSESSMENT/PLAN: 272.4-HYPERLIPIDEMIA ASSESSMENT: A low cholesterol diet was encouraged. The patient's most recent labs reviewed. Regularexercise was encouraged. LAB ORDERS: Order number: [id number] Test Ordered: LIPID PANEL 7600 401.1-HYPERTENSION ESSENTIAL [...] [facility] Oncology and Hematology - [place] [address] [place] [address] Armond Epstein MD [address] [facility] [address] [place] [address] documented as of this encounter Visit Diagnoses Not on filedocumented in this encounter Care Teams Spooler Rubber Strand Relationship Specialty Start Date End Date Vel Gilliam MD [address] [place] [address] PCP - General Family Practice 02/14/14 documented as of this encounter
--- OUTSIDE RECORDS SUMMARY | 2025-03-07 14:54 | XMS_ITS | Encounter Summary ---
Author Organization [facility] Address [address] [place] [address] Care Team Providers Care Geographic Information Scientist Name Role Phone Vel Gilliam MD Primary Care Provider [phone] Encounter Details Date Type Department Care Team (Late Contact Info) Description 02/10/2006 Outpatient Historical [facility] Family Medicine Nay Swanson [address] [employer] [facility] [address] [place] [address] [place] [address] [employer] [facility] [place] [address] Social History Tobacco Use Types Packs/Day Years Used Date Smoking Tobacco: Never Assessed Sex and Gender Information Value Date Recorded Sex Assigned at Not on file Legal Sex Male 4:23 AM TEACHER ASSOCIATE Gender Identity Not on file Sexual [...] 03/13/2025 4:30 PM CDT Telephone Check Up [facility] Oncology and Hematology - [place] [address] [place] [address] Armond Epstein MD [address] [facility] [address] [place] [address] documented as of this encounter Visit Diagnoses Not on filedocumented in this encounter Care Teams Geographic Information Scientist Relationship Specialty Start Date End Date Vel Gilliam MD [address] [place] [address] PCP - General Family Practice 02/14/14 documented as of this encounter
--- OUTSIDE RECORDS SUMMARY | 2025-03-07 14:54 | XMS_ITS | Encounter Summary ---
Author Organization [facility] Address [address] [place] [address] Care Team Providers Care Exhibit Designer Name Role Phone Vel Gilliam MD Primary Care Provider [phone] Encounter Details Date Type Department Care Team (Late Contact Info) Description 07/29/2005 Outpatient Historical [facility] Family Medicine [place] [address] [employer] [facility] [address] [place] [address] [place] [address] [address] 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 [address] PCP - General Family Practice 02/14/14 documented as of this encounter
--- OUTSIDE RECORDS SUMMARY | 2025-03-07 14:54 | XMS_ITS | Encounter Summary ---
Author Organization [facility] Address [address] [place] [address] Care Team Providers Care Time Analysis Clerk Name Role Phone Vel Gilliam MD Primary Care Provider [phone] Encounter Details Date Type Department Care Team (Latest Contact Info) Description 08/04/2005 Outpatient Historical [facility] [place] [address] 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 Gender Identity Not on file Sexual Orientation Not on file documented as of this encounter Plan of Treatment Upcoming Encounters Date Type Department Care Team (Late st Contact Info) Description 03/13/2025 4:30 PM CDT Telephone Check Up [facility] Oncology and Hematology - Antonio [address] [facility] [address] [place] [address] Armond Epstein MD [address] [facility] [address] [place] [address] documented as of this encounter Visit Diagnoses Diagnosis Undiagnosed cardiac murmurs- Primary documented in this encounter Care Teams Time Analysis Clerk Relationship Specialty Start Date End Date Vel Gilliam MD [address] [place] [address] PCP - General Family Practice 02/14/14 documented as of this encounter
--- OUTSIDE RECORDS SUMMARY | 2025-03-07 14:54 | XMS_ITS | Encounter Summary ---
Author Organization [facility] Address 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 Gender Identity Not on file Sexual Orientation Not on file documented as of this encounter Plan of Treatment Upcoming Encounters Date Type Department Care Team (Late st Contact Info) Description 03/13/2025 4:30 PM CDT Telephone Check Up [facility] Oncology and Hematology - [place] [address] [facility] [address] [place] [address] Armond Epstein MD [address] [facility] [address] [place] [address] documented as of this encounter Visit Diagnoses Not on filedocumented in this encounter Care Teams Subpoena Server Relationship Specialty Start Date End Date Vel Gilliam MD [address] [place] [address] PCP - General Family Practice 02/14/14 documented as of this encounter
--- OUTSIDE RECORDS SUMMARY | 2025-03-07 14:54 | XMS_ITS | Encounter Summary ---
Author Organization [facility] Address [address] [place] [address] Care Team Providers Care Business Intelligence Analyst Name Role Phone Vel Gilliam MD Primary Care Provider [phone] Encounter Details Date Type Department Care Team (Late st Contact Info) Description 08/26/2004 Outpatient Historical [facility] Family Medicine [place] [address] [employer] [facility] [address] [place] [address] [place] [address] [employer] [facility] [place] [address] Social History Tobacco Use Types Packs/Day Years Used Date Smoking Tobacco: Never Assessed Sex and Gender Information Value Date Recorded Sex Assigned at Not on file Legal Sex Male 4:23 AM CRANIOLOGIST Gender Identity Not on file Sexual Orientation Not on file documented as of this encounter Last Filed Vital Signs Vital Sign Reading Time Taken Comments Blood Pressure 162/70 08/26/2004 2:30 PM CRANIOLOGIST Pulse 52 08/26/2004 2:30 PM CRANIOLOGIST Temperature 36.4 C (97.5 F) 08/26/2004 2:30 PM CRANIOLOGIST Respiratory Rate 16 08/26/2004 2:30 PM CRANIOLOGIST Oxygen Saturation - - Inhaled Oxygen Concentration - - Weight 89.4 kg (197 lb) 08/26/2004 2:30 PM CRANIOLOGIST Height - - Body Mass Index - - documented in this encounter Plan of Treatment Upcoming Encounters Date Type Department Care Team (Late st Contact Info) Description 03/13/2025 4:30 PM CDT Telephone Check Up [facility] Oncology and Hematology - [place] [address] [facility] [address] [place] [address] Armond Epstein MD [address] [facility] [address] [place] [address] documented as of this encounter Visit Diagnoses Not on filedocumented in this encounter Care Teams Business Intelligence Analyst Relationship Specialty Start Date End Date Vel Gilliam MD [address] [place] [address] PCP - General Family Practice 02/14/14 documented as of this encounter
--- OUTSIDE RECORDS SUMMARY | 2025-03-07 14:55 | XMS_ITS | Encounter Summary ---
Author Organization 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
--- OUTSIDE RECORDS SUMMARY | 2025-03-07 14:55 | XMS_ITS | Clinical Summary ---
Author Organization [facility] Address [address] [place] [address] Care Team Providers Care Public Health Physician Name Role Phone Vel Gilliam MD Primary Care Provider [phone] Allergies Active Allergy Reactions Criticality Noted Date [...] Take 440 mg by mouth daily. Active [place]-3 Fatty Acids 1,000 mg Oral Cap Take [...] capsule Take 1 Cap by mouth daily memorial designer. Active simvastatin (ZOCOR) 20 mg tablet Take [...] 81 mg by mouth daily. Active aspirin ([place] Low Dose Aspirin) 81 mg Tablet, Delayed [...] Encounters Date Type Department Care Team Description 03/05/2025 Orders Only [facility] On[facility] and Hematology - [place] [facility] [address] [place] [address] Armond Epstein MD 03/01/2025 Orders Only [facility]ematology - [place] [address] [place] [address] Armond Epstein MD 02/27/2025 Telephone [facility]ematology - [place] [address] [place] [address] Armond Epstein MD Appointment Correction (If patient calls back please inform him of his schedule telephone visit and the protocol for this visit. Labs have already been complete. 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); Chronic anemia 02/20/2025 Abstract [facility] [place] [address] [address] [place] [address] Armond Epstein MD from Last 3 Months Immunizations Immunization Administration [...] Date Smoking Tobacco: Every Day Cigarettes 0.3 67.4 Started: 10/24/1955 Smokeless Tobacco: Never Tobacco Cessation:Ready to Q uit: Not Asked; Counseling Given: Not Answered Alcohol Use Standard Drinks/Week Comments Never 0 (1 standard drink = 0.6 oz pur e alcohol) Sex and Gender Information Value Date Recorded Sex Assigned at Not on file 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 Gender Identity Not on file Sexual Orientation [...] 03/13/2025 4:30 PM CDT Telephone Check Up [facility] Hematology - [place] [address] [place] [address] Armond Epstein MD [address] [facility] [address] [place] [id number] Health Maintenance Due Date Last Done Comments [...] Flex Sig/CT Colonography Q 5 years Discontinued Procedures Procedure Name Priority Date/Time Associated Diagnosis Comments KAPPA/LAMBDA LIGHT CHAINS Routine 2024 1:57 PM CDT PROTEIN ELECTROPHORESIS, CSF Routine 02/20/2025 1:50 PM CDT COMPREHENSIVE METABOLIC PANEL Routine 02/20/2025 12:53 PM CDT CBC WITH DIFFERENTIAL Routine 02/20/2025 8:18 AM CDT from Last 3 Months Results * KAPPA/LAMBDA, FREE LIGHT CHAINS (02/20/2025 1:57 PM CDT) Blood us Armond Epstein MD CHEMISTRY ORDERABLES Final Resu lt * PROTEIN ELECTROPHORESIS, CSF (02/20/2025 1:50 PM CDT) Cerebrospinal fluid CEREBROSPINAL FLUID / Unknown us Armond Epstein MD BODY FLUIDS AND STOOLS Final Re sult * COMPREHENSIVE METABOLIC PANEL (02/20/2025 12:53 PM CDT) Blood Armond Epstein MD CHEMISTRY ORDERABLES Final Resu lt * CBC WITH DIFFERENTIAL (02/20/2025 8:18 AM CDT) Blood Armond Epstein MD HEMATOLOGY ORDERABLES Final Res ult from Last [address] [place] [address] MEDICARE PART A AND B [facility] [address] Advance Directives For more information, please contact: [phone] * Full Code (Latest Code Status on File) Date Activated Date Inactivated Comments 09/25/2009 8:40 AM 09/26/2009 2:01 AM Care Teams Public Health Physician Relationship Specialty Start Date End Date Vel Gilliam MD [address] [place] [address] PCP - General Family Practice 02/14/14
--- OUTSIDE RECORDS SUMMARY | 2025-03-07 14:55 | XMS_ITS | Clinical Summary ---
Author Organization [facility] Address [address] [place] [address] Care Team Providers Care Heel Seat Fitter Machine Name Role Phone Lynsey Swann SHUN Primary Care Provider [phone] Allergies Active Allergy Reactions Criticality Noted Date [...] on file Legal Sex Male 2:04 PM TECHNICAL OPERATIONS VICE PRESIDENT Gender Identity Not on file Sexual Orientation Not on file Last Filed Vital Signs Vital Sign Reading Time Taken Comments Blood Pressure 136/56 12/24/2019 1:49 PM TECHNICAL OPERATIONS VICE PRESIDENT Pulse 52 12/24/2019 1:49 PM TECHNICAL OPERATIONS VICE PRESIDENT Temperature 36.4 C (97.6 F) 11/30/2019 9:17 AM TECHNICAL OPERATIONS VICE PRESIDENT Respiratory Rate - - Oxygen Saturation 97% 11/30/2019 9:17 AM TECHNICAL OPERATIONS VICE PRESIDENT Inhaled Oxygen Concentration - - Weight 87.5 kg (193 lb) 12/24/2019 1:49 PM TECHNICAL OPERATIONS VICE PRESIDENT Height 167.6 cm (5' 6 ) 12/24/2019 1:49 PM TECHNICAL OPERATIONS VICE PRESIDENT Body Mass Index 31.15 12/24/2019 1:49 PM TECHNICAL OPERATIONS VICE PRESIDENT Plan of Treatment Health Maintenance Due Date [...] patient's age to complete [place] [address] [employer] Care Teams Heel Seat Fitter Machine Relationship Specialty Start Date End Date Lynsey Swann FNP PCP - General Nurse Practitioner Family 11/30/19
--- OUTSIDE RECORDS SUMMARY | 2025-03-07 14:55 | XMS_ITS | Referral Summary ---
Author Organization [facility] Address [address] [place] [address] Phone Care Team Providers Care Front Line Leader Name Role Phone Fina Todd MD Unavailable Quintin Downey MD Unavailable [phone] Bipin Wetzel MD Unavailable Yancy Loera MD Unavailable Dwayne Hercules MD Unavailable [phone] Dwayne Hercules MD Unavailable Nigel Elizalde MD Unavailable [phone] Issa Sanches MD Unavailable [phone] Miscellaneous, Not In File Unavailable Unava Vel Lazo MD Primary Care Provider Encounters Date Type Department Care Team Description 03/01/2025 Telephone [facility] Vascular Surgery [address] [address] [place] [address] Molina Jordan MD 02/18/2025 Orders Only [facility] Surgery [address] [facility] Advanced [facility] 8th [place] [address] [place] [address] Molina Jordan MD End stage renal disease (HCC) (Primary Dx) 02/18/2025 Telephone [facility] Surgery [address] [facility] Floor 1 [place] [address] Molina Jordan MD 02/06/2025 7:45 AM CDT Ancillary Procedure [facility] Cardiology [address] [facility] [address] [place] [address] Bradycardia; Sinoatrial node dysfunction (HCC); Cardiac pacemaker in situ 02/05/2025 7:30 AM CDT - 02/05/2025 10:00 AM CDT Surgery [facility] Operating Room [facility] [place] [phone] Molina Jordan MD Creation Right Arteriovenous Fistula 02/05/2025 7:35 AM CDT Anesthesia Event [facility] Operating Room [address] [place] [phone] Miguel Urena MD 02/05/2025 5:32 AM CDT - 02/05/2025 10:36 AM CDT Hospital Encounter [facility] Operating Room [facility] [place] [phone] Molina Jordan MD Chronic kidney disease (CKD), stage V (HCC) (Primary Dx) Discharge Disposition: Discharge to home or self care 01/23/2025 11:59 PM CDT Anesthesia Event [facility] Operating Room [address] [place] [address] Shantal Gregory NP 02/01/2025 Telephone [facility] Vascular Surgery [address] [facility] [address] [place] [address] Molina Jordan MD 01/29/2025 10:45 AM CDT Office Visit [facility] Cardiology at [address] [place] [address] Dwayne Fowler MD Chronic systolic CHF (congestive heart failure) (HCC) (Primary Dx); Chronic systolic congestive heart failure (HCC); Cardiomyopathy, unspecified type (HCC); Nonrheumatic mitral valve regurgitation; Pacemaker; Asymptomatic bilateral carotid artery stenosis 01/21/2025 Telephone [facility] Surgery [address] [facility] Floor 1 [place] [address] Esperanza Bedolla PA 01/21/2025 Results Follow-Up [facility]iology [address] [place] [phone] Dwayne Fowler MD 01/17/2025 2:30 PM CDT Ancillary Procedure [facility] Cardiology at [address] [place] [phone] Chronic systolic CHF (congestive heart failure) (HCC); Cardiomyopathy, unspecified type (HCC); Nonrheumatic mitral valve regurgitation 01/16/2025 10:15 AM CDT Office Visit [facility] Surgery [address] [facility] 8th [place] [address] [place] [address] Molina Jordan MD Chronic kidney disease (CKD) stage G5/A1, glomerular filtration rate (GFR) less than or equal to 15 mL/min/1.73 square meter and albuminuria creatinine ratio less than 30 mg/g ([facility]) (Primary Dx); Chronic kidney disease, stage 4 (severe) (HCC) 01/16/2025 9:30 AM CDT Ancillary Procedure [facility] Vascular Lab at the [address]th [place] [address] [place] [phone] Chronic kidney disease (CKD) stage G5/A1, glomerular filtration rate (GFR) less than or equal to 15 mL/min/1.73 square meter and albuminuria creatinine ratio less than 30 mg/g (HCC) 01/08/2025 Telephone [facility] Vascular Surgery [facility] Office Building [address] [place] [address] Molina Jordan MD 01/08/2025 Telephone [facility] Surgery [address] [facility] Floor 1 [place] [phone] Molina Jordan MD 12/18/2024 Orders Only [facility] Vascular Surgery [facility] Office Building [address] [place] [address] Molina Jordan MD Chronic kidney disease (CKD) stage G5/A1, glomerular filtration rate (GFR) less than or equal to 15 mL/min/1.73 square meter and albuminuria creatinine ratio less than 30 mg/g (HCC) (Primary Dx) from Last 3 Months Allergies No known [...] Indications: hypertension, Informant: Self, Reported on 02/05/2025 finasteride (PROSCAR) 5 mg tabletIndication s:benign prostatic [...] A DAY 60 capsule 2 025 Active amLODIPine (NORVASC) 5 mg tablet TAKE 2 TABLETS BY MOUTH EVERY DAY 180 tablet 3 025 Active amLODIPine (NORVASC) 5 mg tablet Take 2 tablets (10 mg total) by mouth daily 180 tablet 3 024 2024 Discontinued gabapentin (NEURONTIN) 300 mg capsule TAKE 1 [...] - Assessment & Plan (12/13/2023 1:29 PM SPECIAL DELIVERY CLERK): #PAD #Asx ICA stenosis - Home med: Simvastatin 10mg daily GERD (gastroesophageal reflux disease) Assessment & Plan (12/13/2023 1:29 PM SPECIAL DELIVERY CLERK): - Home med: Famotidine 40mg daily Elevated troponin 12/13/2023 Assessment & Plan (12/13/2023 1:31 PM SPECIAL DELIVERY CLERK): - : Trop 47, 45, 49, plateaued - New RBBB on EKG compared to EKG 09/2023 Right bundle branch block (RBBB) 12/13/2023 Assessment & Plan (12/13/2023 1:40 PM SPECIAL DELIVERY CLERK): - Noted on EKG 12/12/2023, changed from prior EKG 09/2023 - Follow up with outpatient cdc associate Dr. Chester Closed fracture dislocation of sternum Assessment & Plan (12/13/2023 1:29 PM SPECIAL DELIVERY CLERK): - pain controlled on RA and patient ambulatory after >12 hrs between accident and arriving to [facility]. - Repeat EKG with new RBBB compared [...] months. Assessment & Plan (11/29/2023 9:59 AM SPECIAL DELIVERY CLERK): Asymptomatic and stable left ICA stenosis based on velocity criteria. As long as he's smoking, we recommend monitoring him with carotid doppler every six months. Assessment & Plan (09/02/2022 11:43 AM SPECIAL DELIVERY CLERK): He has minimal right ICA stenosis. The [...] administration of iodinated contrast. He has a [employer] Essentio pacemaker implant. The MR department at [facility] is checking with [employer] to determine if his implant - including [...] several years ago but was delayed by [facility] and then not followed up on as [...] if change/issue/re-evaluation desired. Pacemaker 08/12/2020 Overview (08/12/2020): [employer] DDD Essentio pacemaker implanted on 08/12/20 for SSS. [employer] Latitude Overweight with body mass in dex (BMI) of 28 to 28.9 in adult 08/06/2020 Assessment & Plan (08/06/2020 2:26 PM CDT): Unchanged Discussed healthy diet and importance of regular physical activity. Sinoatrial node dysfunction 08/05/2020 Overview (08/05/2020): Added automatically from request for surgery [id number] Anemia associated with chronic renal failure 08/2020 [...] cardiac rhythm abnormalities: a report of the [place] College of Cardiology Foundation/Thai Heart Association Task Force on Practice Guidelines [...] Larry G, Rosario SC, Minesh DL, Mildred HOPPER, Merrick LK, Sydney RL, Danisha MH, Loi MJ, Donald LW, Sukhwinder HARDY 2012 ACCF/AHA/HRS focused update incorporated into the ACCF/AHA/HRS 2008 guidelines for device-based therapy of cardiac rhythm abnormalities: a report of the [place] College of Cardiology Foundation/Thai Heart Association Task Force on Practice Guidelines [...] his symptoms. He has not seen a cdc associate for any reasons lately. He has not had any active heart symptoms otherwise that brought him to 1. We did do an EKG which confirmed the it bradycardia. It is probably worth setting up a consult with the cdc associate to assess this further. If there is any acute heart symptoms or concerns at all was reasonable to going to the emergency room to seek more emergent her medial evaluation. They will call interim if there is any other concerns. Reviewed symptoms to watch for. Hemorrhage of rectum and anus 04/04/2019 Overview (04/04/2019): Added automatically from request for surgery [id number] Assessment & Plan (06/13/2020 2:44 PM CDT): [...] 10/25/2018 Assessment & Plan (10/25/2018 3:10 PM SPECIAL DELIVERY CLERK): We reviewed current day concerns aboutbenzis and [...] 07/15/2017 Assessment & Plan (10/25/2018 3:09 PM SPECIAL DELIVERY CLERK): Reviewed his recent labs. He is going to follow up with his instrumentation tech about the anemia. He does not believe [...] CDT): Patient is also followed by the candy rolling machine operator for his rheumatoid arthritis Monoclonal gammopathy 04/14/2016 [...] disease Assessment & Plan (09/02/2022 10:18 AM SPECIAL DELIVERY CLERK): Stable lower extremity arterial disease both symptomatically and based on vascular study. Repeat ABIs in one year. Assessment & Plan (04/13/2017 6:13 PM CDT): Has carotid disease. Had an ultrasound in October. Followed by Dr. Herrmann Anxiety disorder 11/07/2015 Overview (01/27/2017): Depression, unspecified depression type Assessment & Plan (12/13/2023 1:28 PM SPECIAL DELIVERY CLERK): - Home med: Alprazolam 0.25mg BID Sjogren's disease 01/07/2015 Assessment & Plan (12/13/2023 1:27 PM SPECIAL DELIVERY CLERK): #Sjogrens/SLE - Home med: Plaquenil 200mg BID, Gabapentin 300mg BID Chronic kidney disease, stage IV (severe) 2009 Assessment & Plan (03/03/2020 1:12 PM CDT): He is going to call the instrumentation tech to make sure they are okay with [...] hypertension Assessment & Plan (12/13/2023 1:27 PM SPECIAL DELIVERY CLERK): - Home med: Amlodipine 0.25mg BID, HCTZ 200mg daily, Metop 50mg daily, Irbesartan 300mg daily Assessment & Plan (03/03/2020 1:12 PM CDT): He is going to cautiously increase Avapro 150 mg twice a day. He is aware were going to have to watch his renal function. He is also going to reach out to his instrumentation tech to make sure they are on board with that. I did put lab orders in. He can acid instrumentation tech as well as candy rolling machine operator if they wanted the other labs in [...] CPAP Assessment & Plan (12/13/2023 1:26 PM SPECIAL DELIVERY CLERK): - CPAP ordered Tobacco abuse 10/24/1998 Overview (03/05/2019): Overview: Quit 1998; 40 pack years Assessment & Plan (11/29/2023 11:43 AM SPECIAL DELIVERY CLERK): The importance of smoking cessation was discussed with the patient including the relationship between peripheral vascular disease and tobacco abuse. COPD (chronic obstructive pulmonary disease) Assessment & Plan (12/13/2023 1:26 PM SPECIAL DELIVERY CLERK): - Home med: Trelegy Ellipta daily, Albuterol inhaler PRN Resolved Problems Problem Noted Date Diagnosed Date Resolved Date Allergic rhinitis 08/29/2024 11/28/2024 Simple chronic bronchitis 03/02/2022 Orthostatic hypotension 08/04/2020 120 10/2019 Near syncope 08/04/2020 09/23/2020 Assessment & Plan (08/06/2020 2:25 PM CDT): New: agree patient needs PM. Instructed patient to follow up after PM placement. Reviewed all of the medication changes made at hospital and by cards to ensure our list is accurate. Pre-op exam 12/28/2019 12/28/2019 Assessment & Plan (12/28/2019 12:47 PM SPECIAL DELIVERY CLERK): I do not see any indication why [...] activity. Assessment & Plan (10/25/2018 3:09 PM SPECIAL DELIVERY CLERK): BMI Follow-up includes: nutrition counseling, exercise counseling and education provided. Diarrhea 10/25/2018 03/05/2019 Foot pain, bilateral 06/27/2018 019 Skin lesions, generalized 01/26/2018 Assessment & Plan (01/26/2018 4:03 PM CDT): Patient has multiple skin issues on his back. I have elected to refer him to the batch heat treat operator. I do not see anything overly alarming right now. There is some much going on there though. Bronchitis 12/06/2017 03/05/2019 Assessment & Plan (12/06/2017 12:24 PM SPECIAL DELIVERY CLERK): Still smoking colored sputum plus wheezes will [...] Anxiety Assessment & Plan (10/25/2018 3:10 PM SPECIAL DELIVERY CLERK): He will continue on his Lexapro. I refilled the Xanax. He reports he is doing okay between the 2 medications. We reviewed medication side effect potentials Obesity with body mass index (BMI) of 30.0 to 39.9 11/07/2015 09/23/2020 Overview (01/27/2017): Lumbar herniated disc Assessment & Plan (12/28/2019 10:37 AM SPECIAL DELIVERY CLERK): Unchanged Discussed healthy diet and importance of [...] is followed by the vascular surgeons at [place]. Moderate major depression, single episode 05/24/2011 12/28/2019 [...] Date Smoking Tobacco: Every Day Cigarettes 0.7 64.4 Started: 1958 Passive Smoke Exposure: Past Smokeless [...] you are drinking? Patient does not drink 5 Q3: How often do you have si [...] on file Legal Sex Male 3:08 AM SPECIAL DELIVERY CLERK Gender Identity Male 09/15/2020 1:55 PM SPECIAL DELIVERY CLERK Sexual Orientation Straight 03/02/2020 6: 25 PM [...] on file Medical Devices Implanted Type Area Pharmacy Sales Representative Device Identifier Shelf Expiration Date Model / Serial / Lot [employer] 7841 Lead 7841 Endocardial Pacing Mr Is-1 Bipolar Connection - [id number] - [id number] Implanted:Qty: 1 on 08/12/2020 by Issa Sanches MD at [facility] [employer] [id number] 11/20/2021 [id number] / [id number] / [employer] 7840 Lead 7840 Endocardial Pacing Mr Is-1 Bipolar Connection - [id number] - [id number] Implanted:Qty: 1 on 08/12/2020 by Issa Sanches MD at [facility] [employer] [id number] 11/22/2021 7840 / [id number] / [employer]. L111 Essentio 4.45x5.02cm 2 Chamber Is1 Connector .75cm Pacemaker 13.7 - [id number] - [id number] Implanted:Qty: 1 on 08/12/2020 by Issa Sanches MD at [facility] [employer] C[employer]M. [id number] 06/23/2022 L111 / [id number] / Procedures Procedure Name Priority Date/Time Associated Diagnosis Comments DEVICE CHECK - REMOTE Routine 02/07/2025 9:53 AM CDT Bradycardia Sinoatrial node dysfunction (HCC) Cardiac pacemaker in situ [place] AN PROCEDURE PLACEHOLDER Routine 02/05/2025 7:52 AM CDT [place] AN ELECTIVE SUPRAGLOTTIC AIRWAY Routine 02/05/2025 7:52 [...] creatinine ratio less than 30 mg/g (HCC) from Last 3 Months Results * DEVICE CHECK - REMOTE (02/07/2025 9:53 AM CDT) Anatomical Region Laterality Modality Other Narrative 02/14/2025 5:10 PM CDT [employer] [employer] DDD Essentio pacemaker implanted on 08/12/20 for SSS. [employer] - Latitude. Routine DDDR Pacemaker Remote. Transmission attached. Battery status: Ok, 3.5 years remaining battery life to MANE. Stable lead impedances, pacing and sensing thresholds. Presenting rhythm: AP-CHILD PSYCHOLOGY TEACHER. AP-100%, CHILD PSYCHOLOGY TEACHER-98%. 1 AT/AF episodes noted, 2 second duration, IEGM demonstrates noise. No Ventricular high rate episodes detected. Medications: ASA 81 mg, Toprol-XL. See scanned report. Office pacemaker follow up: 1 year. Latitude remote f/u 05/08/2025. Adali Vaca, RN Dwayne Fowler MD [facility] CARDIAC SERVICES PROCE MICHAEL Final Result * AZ AN ELECTIVE SUPRAGLOTTIC AIRWAY, [place] AN PROCEDURE PLACEHOLDER (02/05/2025 7:52 AM CDT) Narrative Rebecca Weaver CRNA - 02/05/2025 7:52 AM CDT Rebecca Weaver CRNA 02/05/2025 7:53 AM Airway Patient location: OR Urgency: elective Date/time: 02/05/2025 7:42 AM Indications for airway management: anesthesia Difficult airway: no Staff: Placed by: RAILROAD CAR CLEANER: Rebecca Weaver CRNA Resident: Miguelito Longoria Emergent [...] 6:36 AM CDT 02/05/2025 6:47 AM CDT [facility] Iain Urena MD LAB BLOOD ORDERABLES F inal Result [facility] [address] [place] [address] * (ABNORMAL) Basic metabolic panel (02/05/2025 6:36 AM CDT) Sodium 142 135 - 145 mmol/L Potassium, pl 4.8 3.3 - 4.9 mmol/L [facility] Chloride 110 97 - 110 mmol/L [facility] CO2 17(L) 22 - 32 mmol/L [facility] Anion gap 15 2 - 15 mmol/L [facility] BUN 70(H) 6 - 25 mg/dL [facility] Creatinine 3.66(H) 0.80 - 1.30 mg/dL [facility] Glucose 71 70 - 199 mg/dL [facility] Comment: Interpretive Data Fasting glucose >/= [...] 2022. Calcium 8.7 8.5 - 10.3 mg/dL [facility] Blood 02/05/2025 6:36 AM CDT 02/05/2025 6:47 AM CDT us Miguel Urena MD LAB BLOOD ORDERABLES F inal Result [facility] [address] [place] [address] * TRANSTHORACIC ECHO (TTE) COMPLETE W DOPPLER/CF WO CONTRAST (01/17/2025 3:06 PM CDT) LV EF 30 % CONS SCIMAGE Anatomical Region Laterality Modality Ultrasound 01/17/2025 2:30 PM CDT Narrative 01/18/2025 7:28 AM CDT [facility] [address], [address], [place] [address] P:[phone] P:[phone] Echocardiographic Report Patient Name: UNIQUE FRANK H [...] FINDINGS: Interpretation Site: Exam was interpreted at [facility]. Left Ventricle: Moderate enlargement of left [...] noted. Electronically Signed By: Thomas Brown MD, [facility] 01/18/2025 7:27:37 AM CDT Procedure Note Thomas Brown MD - 01/18/2025 [facility]iology [facility], [address], [place] [address] P:[phone] P:[phone] Echocardiographic Report Patient Name: UNIQUE FRANK H : 1940 Study Date: 01/17/2025 2:30:38 PM Gender: M Tech: Location: [facility] Ref Provider: DWAYNE FOWLER Height(Cm): 168 BSA: [...] FINDINGS: Interpretation Site: Exam was interpreted at [facility]. Left Ventricle: Moderate enlargement of left [...] noted. Electronically Signed By: Thomas Brown MD, FACC 01/18/2025 7:27:37 AM CDT us Dwayne Fowler MD CV ECHO PROCEDURES Final Result * US Vein Mapping Fistula Access, Bilateral (01/16/2025 9:58 AM CDT) Anatomical Region Laterality Modality Vascular Bilateral Ultrasound 01/16/2025 9:30 AM CDT Narrative 01/16/2025 6:14 PM CDT [facility] - Department of Vascular Surgery, Vascular Laboratory [address] [place] [address] Upper Extremity Vein Mapping Report Patient Name: UNIQUE FRANK : 1940 (84y 2m) Study Date: 01/16/2025 9:30:52 AM Gender: M Supervisor Buffing And Pasting: Samantha MCNULTY Location: [facility] Provider: MOLINA JORDAN Quality: Adequate Order Provider: [...] Value Units Left Value Units FINDINGS: Performing Supervisor Buffing And Pasting: Jazzmine Mcnulty RVT. Bilateral: Venous Doppler signals [...] MD [facility] [phone] 01/16/2025 6:14:30 PM CDT Procedure Note Varghese Ryan MD - 01/16/2025 [facility] - Department of Vascular Surgery,Vascular Laboratory [address] [place] [address] Upper Extremity Vein Mapping Report Patient Name: UNIQUE FRANK : 1940 (84y 2m) Study Date: 01/16/2025 9:30:52 AM Gender: M Supervisor Buffing And Pasting: Samantha MCNULTY Location: [facility] Provider: MOLINA JORDAN Quality: Adequate Order Provider: [...] Value Units Left Value Units FINDINGS: Performing Supervisor Buffing And Pasting: Jazzmine Mcnulty RVT. Bilateral: Venous Doppler signals [...] MD [facility] [phone] 01/16/2025 6:14:30 PM CDT Molina Jordan MD IM US PROCEDURES Final Resul t from Last [address] [place] [address] [facility] [place] [place] [address] [facility] [address] [place] [address] Advance Directives For more information, please contact: [phone] * Full Code (Latest Code Status on File) Date Activated Date Inactivated Comments 11/26/2024 11:44 AM 11/26/2024 6:45 PM * Full Code Date Activated Date Inactivated Comments 12/12/2023 3:26 PM 12/13/2023 7:42 PM * Full Code Date Activated Date Inactivated Comments 04/20/2019 9:05 AM 04/20/2019 2:46 PM * Full Code Date Activated Date Inactivated Comments 04/20/2019 9:04 AM 04/20/2019 9:05 AM Care Teams Front Line Leader Relationship Specialty Start Date End Date Vel Gilliam MD [address] [place] [address] PCP - General Family Medicine 11/07/24 Fina Todd MD Dinkey Engine Mechanic Dermatology 03/05/19 Quintin Downey MD Consulting Physician Nephrology 03/06/19 Bipin Wetzel MD Referring Physician Cardiovascular Disease 04/08/20 Yancy Loera MD [address] [facility] [address] [place] [address] Referring Physician Rheumatology 04/08/20 Dwayne Hercules MD [address] [place] [address] Consulting Physician Hematology and Oncology 09/30/20 Dwayne Hercules MD [address] [place] [address] Medical Oncologist/Hematologis t Hematology and Oncology 09/30/20 Nigel Elizalde MD [address] [facility] [address] [place] [address] Consulting Physician Urology 11/29/23 Issa Sanches MD [address] [facility] [address] [place] [address] Consulting Physician Cardiology 11/29/23 Miscellaneous, Not In File 12/13/23
--- OUTSIDE RECORDS SUMMARY | 2025-03-07 14:55 | XMS_ITS | Clinical Summary ---
Author Organization [facility] Address [address] [place] [address] Phone Care Team Providers Care Stock Checkerer Name Role Phone Vel [place]illiam MD Primary Care Provider [phone] Allergies Active Allergy Reactions Criticality Noted Date [...] Cardiac pacemaker in situ 08/12/2020 Overview (08/22/2020): [place] [employer] DDD Essentio pacemaker implanted on 08/12/20 for SSS. [facility] Orthostatic hypotension 08/04/2020 Anemia of chronic [...] cardiac rhythm abnormalities: a report of the [place] College [employer] Foundation/[place] Heart Association Task Force on Practice Guidelines and the Heart Rhythm Society. J Am Kimberly Cardiol 2013;61:e6-75. 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 (Level of Evidence: C) Cobalamin deficiency 03/05/2019 Systemic lupus erythematosus 05/31/2017 Overview (07/18/2019): Last Assessment & Plan: Patient is also followed by the reservoir caretaker for his rheumatoid arthritis Monoclonal gammopathy of [...] is followed by the vascular surgeons at [place]. Essential (primary) hypertension 10/10/2013 Proteinuria 10/10/2013 Obstructive [...] Risk Completed 06/01/2016, 03/28/2013, 08/29/[address] [place] [address] [employer] Care Teams Stock Checkerer Relationship Specialty Start Date End Date Vel Gilliam MD [address] [place] [address] PCP - General Family Medicine 02/25/22
--- OUTSIDE RECORDS SUMMARY | 2025-03-07 14:55 | XMS_ITS | Continuity of Care Document ---
Author Organization [facility] Address [address] [facility] [address] [place] [address] Phone Care Team Providers Care Mainspring Torque Tester Name Role Phone Kt Martínez MD Unavailable [...] Copied on Encounter OFFICE/OUTPAT IENT VISIT EST [facility] , [address], [address], tel:[phone] [facility] History of revision of total replacement of left knee joint 2 L'Hommedieu Fillmore. [address] [place], [place], [address]. tel:[phone] Specialist: [address], [place], [address]. tel:[phone] Provider: Vel Aguiar, [address] , [place], [address]. tel:[phone] OFFICE/OUTPAT IENT VISIT EST [facility] , [address] [facility] [address], [place], [address], [place] tel:[phone] [facility] History of revision of total replacement of left knee jointContusi on of left knee, subsequent encounter 1 L'Hommedieu Fillmore. [address] [facility] , [place], [place], [address]. tel:[phone] Specialist: [address], [place], [address]. tel:[phone] Provider: Vel Aguiar, [address], [place], [address]. tel:[phone] OFFICE/OUTPAT IENT VISIT EST [facility] , [address] [facility] [address], [place], [address], [place] tel:[phone] [facility] Body mass index [BMI] 29.0-29.9, adultHistory of revision of total replacement of left knee jointContusi on of left knee, initial encounter - 1 Armaan'Douglas Meraz. [address] [facility], [place], [place], [address]. tel:[phone] Specialist: [address], [place], [address]. tel:[phone] Provider: Darci De Anda, [address], [place], [address]. tel:[phone] OFFICE/OUTPAT IENT VISIT EST [facility] , [address] [facility] [address], [place], [address], [place] tel:[phone] [facility] Lumbago with sciatica, left sideLumbago with sciatica, right sideSpinal stenosis, lumbar region without neurogenic claudication -201 9 [facility]. [address] [place], [place], [address]. tel:[phone] Specialist: [address], [place], [address]. tel:[phone] Provider: Vel Aguiar, [address], [place], [address]. tel:[phone] OFFICE/OUTPAT IENT VISIT EST [facility], [address] [facility] [address], [place], [address], [place] tel:[phone] [facility] Lumbago with sciatica, right sideSpinal stenosis of lumbar region with neurogenic claudication Lumbago with sciatica, left side Apr-0 9-201 9 Liang Smiley. [address] [place], [place], [address]. tel:[phone] Specialist: [address], [place], [address]. tel:[phone] ng Provider: Katelin Zapien [address], [place], [address]. tel:[phone] OFFICE/OUTPAT IENT VISIT [facility], [address] [facility] [address], [place], [address], [place] tel:[phone] [facility] Body mass index (BMI) 29.0-29.9, adultEssenti al (primary) hypertension History of total left knee replacementA cquired unequal limb length of left femurAfterca re following left knee joint replacement surgery Nov- 9 Yulissa Falcon. [address] [facility] [address], [place], [place], [address]. tel:[phone] Referring Provider: Lynsey Bell [address], [place], [address]. tel:[phone] OFFICE/OUTPAT IENT VISIT [facility] , [address] [place] [address], [address], [place] tel:[phone] [facility] Status post total left knee replacementS tatus post total right knee replacement Sep-2 7 Driss Garcia. [address] [place], [place], [address]. tel:[phone] OFFICE/OUTPAT IENT VISIT [facility], [address] [facility] [address], [place], [address], [place] tel:[phone] [facility] Body mass index (BMI) 29.0-29.9, adultSpinal stenosis of lumbar regionLumbag o with sciatica, right side Sep-0 5-201 7 Liang Smiley. [address] [place], [place], [address]. tel:[phone] Specialist: Donnell Marshall, [address] [place], [address]. tel:[phone] OFFICE/OUTPAT IENT VISIT EST [facility] , [address] [place] [address], [address], [place] tel:[phone] [facility] Status post total left knee replacement 6 Driss Garcia. [address] [place], [place], [address]. tel:[phone] OFFICE/OUTPAT IENT VISIT EST [facility] , [address] [place] [address], [place], [address], [place] tel:[phone] [facility] Pain due to total left knee replacement, subsequent encounter 6 Driss Garcia. [address] [facility], [place], [place], [address]. tel:[phone] OFFICE/OUTPAT IENT VISIT EST [facility] , [address] [place] [address], [place], [address], [place] tel:[phone] [facility] Status post total left knee replacementP ain due to total left knee replacement, initial encounter 6 Driss Garcia. [address] [place], [place], [address]. tel:[phone] OFFICE/OUTPAT IENT VISIT EST [facility], [address] [facility] [address], [place], [address], [place] tel:[phone] [facility] Pain, chronic postoperativ ePrimary osteoarthrit is of left knee 6 Liang Smiley. [address] [place], [place], [address]. tel:[phone] Specialist: Donnell [place], [address] [place], [address]. tel:[phone] OFFICE/OUTPAT IENT VISIT EST [facility], [address] [place] [address], [address], [place] tel:[phone] [facility] Pain, chronic postoperativ eLeft knee pain 6 Liang Baljit. [address] [place], [place], [address]. tel:[phone] Specialist: Donnell Marshall, [address] [place] [address], [address]. tel:[phone] [facility], [address] [place] [address], [address], [place] tel:[phone] [facility] Pain, chronic postoperativ ePrimary osteoarthrit is of left knee 5 Liang Baljit. [address] [place] [address], [id number]. tel:[phone] Specialist: Donnell Marshall, [address] [place] [address], [address]. tel:[phone] [facility], [address] [place] [address], [address], [place] tel:[phone] [facility] Left knee pain 5 Liang Baljit. [address] [place], [place], [address]. 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 [address] [place], [place], [address]. tel:[phone] Specialist: Donnell Marshall, [address] [place] [address], [address]. tel:[phone] [facility], [address] [place], [place] [address], [place], [address], [place] tel:[phone] [facility] Left knee painPain, chronic postoperativ e - 5 Liang Smiley. [address] [place], [place], [address]. tel:[phone] Specialist: Donnell Marshall, [address] [place] [address], [address]. tel:[phone] OFFICE/OUTPAT IENT VISIT EST [facility], [address] [place] [address], [place], [address], [place] tel:[phone] [facility] Spinal stenosis of lumbar regionBilate ral low back pain without sciaticaRigh t knee painLeft knee painPain, chronic postoperativ e 0- 5 Liang Smiley. [address] [place] [address], [id number]. tel:[phone] Specialist: Donnell Marshall, [address] [place] [address], [address]. tel:[phone] Provider: Baljit Tavera, [address] [place] [address], [address]. tel:[phone] OFFICE/OUTPAT IENT VISIT EST [facility], [address] [place] [address], [place], [address], [place] tel:[phone] [facility] Lumbago with sciatica, left sideLumbago with sciatica, right sideSpinal stenosis of lumbar region 5 Liang Smiley. [address] [place] [address], [id number]. tel:[phone] Specialist: Donnell Marshall, [address] [place] [address], [address]. tel:[phone] OFFICE/OUTPAT IENT VISIT EST [facility] , [address] [facility] [address], [place], [address], [place] tel:[phone] [facility] Left knee painRight hip painStatus post total right knee replacementS tatus post total left knee replacement 5 Driss Garcia. [address] [facility], [place], [place], [address]. tel:[phone] OFFICE/OUTPAT IENT VISIT EST [facility], [address] [place] [address], [address], [place] tel:[phone] [facility] Displacement of lumbar intervertebr al discSpinal stenosis of lumbar region 5 Liang Smiley. [address] [place], [place], [address]. tel:[phone] Specialist: Donnell Marshall, [address] [place] [address], [address]. tel:[phone] OFFICE/OUTPAT IENT VISIT EST [facility] , [address], [address], [place] tel:[phone] [facility] Other complication s due to internal joint prosthesisAf tercare following joint replacement 5 Driss Garcia. [address] [facility], [place], [place], [address]. tel:[phone] [facility] , [address], [address], [place] tel:[phone] [facility] Aftercare following joint replacement 5 Kathrine Herrera. [address] [facility] [address] [place] [address], [address]. tel:[phone] OFFICE/OUTPAT IENT VISIT EST [facility], [address] [place] [address], [address], [place] tel:[phone] [facility] BACK PAIN (chief complaint) LumbagoSpina l stenosis of lumbar regionSciati caOverweight 5 Liang Smiley. [address] [place], [place], [address]. tel:[phone] Specialist: Donnell Marshall, [address] [place] [address], [address]. tel:[phone] OFFICE/OUTPAT IENT VISIT [facility], [address] [place] [address], [address], [place] tel:[phone] [facility] BACK FOLLOW UP (chief complaint) Spinal stenosis of lumbar regionLumbag oLumbosacral spondylosisD isplacement of lumbar intervertebr al disc Feb-0 2-201 5 Primitivo Jyoti. [address] [place] [address], [place], [place], [address]. tel:[phone] Specialist: oDnnell Marshall, [address] [place] [address], [address]. tel:[phone] OFFICE/OUTPAT IENT VISIT [facility], [address] [place] [address], [address], [place] tel:[phone] [facility] Follow Up of 1mo for low back pain. PT not helping (chief complaint) LumbagoLumbo sacral spondylosisD isplacement of lumbar intervertebr al discSpinal stenosis of lumbar region Nakul-0 5-201 5 Liang Baljit. [address] [place] [address], [id number]. tel:[phone] Specialist: Donnell Marshall, [address] [place] [address], [address]. tel:[phone] OFFICE CONSULTATION [facility], [address] [place] [address], [address], [place] tel:[phone] [facility] LOW BACK PAIN (chief complaint) LumbagoLumbo sacral spondylosis Dec-0 8-201 4 Liang Baljit. [address] [place] [address], [id number]. tel:[phone] Referring Provider: Donnell Antunez, [address] [place] [address], [address]. tel:[phone] [facility], [address] [place] [address], [address], [place] tel:[phone] [facility] lumbar spine (chief complaint) Spondylolist hesis of lumbar region 4 Curylo Donnell. 5 [place], [place], [address]. tel:[phone] Referring Provider: Donnell Antunez, [address] [place], [address]. tel:[phone] OFFICE/OUTPAT IENT VISIT [facility], [address] [place] [address], [address], [place] tel:[phone] [facility] lumbar spine (chief complaint) lumbar spine (chief complaint) Spondylolist hesis of lumbar regionLumbag o 4 Curylo Donnell. 5 [place], [place], [address]. tel:[phone] Referring Provider: Vel Aguiar, [address], [place], [address]. tel:[phone] OFFICE/OUTPAT IENT VISIT EST [facility] , [address], [address], [place] tel:[phone] [facility] following joint replacement Sep-0 8-201 4 Driss Garcia. [address] [place], [place], [address]. tel:[phone] Referring Provider: Vel Aguiar, [address], [place], [address]. tel:[phone] OFFICE/OUTPAT IENT VISIT EST [facility] , [address], [place], [address], [place] tel:[phone] [facility] following joint replacement Sep-0 9-201 3 Driss Garcia. [address] [facility], [place], [place], [address]. tel:[phone] Referring Provider: Vel Aguiar, [address], [place], [address]. tel:[phone] [facility] , [address] [facility] [address], [place], [address], tel:[phone] [facility] Aftercare following joint replacementP atellar tendinitis 2 Kathrine Herrera. [address] [facility] [address], [place], [place], [address]. tel:[phone] Referring Provider: Gavin Larsen, [address] [facility], [place], [address]. tel:[phone] Family History Family Member Type Diagnosis Age [...] Provider Payers Payer name Insurance type Covered republican ID Authoriza tival(s) Essence [id number] Social History Type Description Quantity Date Captured [...]
--- OUTSIDE RECORDS SUMMARY | 2025-03-07 14:55 | XMS_ITS | Continuity of Care Document ---
Author Organization [facility] Address [address] [place] [address] Phone Care Team Providers Care Assistant Manager Of Operations Name Role Phone Unavailable Unavailable Unavailable Procedures [...] on Encounter Office/outpat ient visit,est, [facility], [address] [facility], [place], [place], [address], [place] tel:[phone] [facility] No Information 2-200 7 No Information Referring Provider: Gavin Larsen, [address] [facility] [facility] [address], [place], [address]. tel:[phone] Office/outpat ient visit,est, [facility], [address] [facility] [address], [place], [place], [address], [place] tel:[phone] [facility] No Information 6 No Information Referring Provider: Gavin Larsen, [address], [place], [address]. tel:[phone] Office/outpat ient visit,est, [facility], [address] [facility] [address], [place], [place], [address], [place] tel:[phone] [facility] No Information 6 No Information Referring Provider: Gavin Larsen, [address], [place], [address]. tel:[phone] Office/outpat ient visit,[facility], [facility], [address] [address], [place], [place], [address], [place] tel:[phone] [facility] No Information 6 No Information Referring Provider: Gavin Larsen, [address], [place], [address]. tel:[phone] Office/outpat ient visit,[facility], [facility], [address], [address], [place] tel:[phone] [employer] No Information 6 No Information Family History Family Member Type Diagnosis Age At Onset No Information Payers Payer name Insurance type Covered alliance party ID Setha hayder(s) [facility] [id number] Social History Type Description Quantity Date [...]
--- OUTSIDE RECORDS SUMMARY | 2025-03-07 14:55 | XMS_ITS | Encounter Summary ---
Author Organization [facility] Address [address] [place] [address] Care Team Providers Care Band Edger Name Role Phone Lynsey Swann Primary Care Provider [phone] Encounter Details Date Type Department Care Team (Late st Contact Info) Description 01/07/2020 Prep for Procedure [facility] Medical [facility]ispecialty [facility] - [facility] [address] 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
--- OUTSIDE RECORDS SUMMARY | 2025-03-07 14:55 | XMS_ITS | Encounter Summary ---
Author Organization [facility] Address [address] [place] [address] Care Team Providers Care Pricing Strategist Name Role Phone Vel Gilliam MD Primary Care Provider [phone] Encounter Details Date Type Department Care Team (Late st Contact Info) Description 03/05/2025 Orders Only [facility]3] Oncology and Hematology - [place] [address] [place] [address] Armond Epstein MD [address] [facility] [address] [place] [address] Social History Tobacco Use Types Packs/Day Years Used Date Smoking Tobacco: Every Day Cigarettes 0.3 67.4 Started: 10/24/1955 Smokeless Tobacco: Never Alcohol Use Standard Drinks/Week Comments Never 0 (1 standard drink = 0.6 oz pur e alcohol) Sex and Gender Information Value Date Recorded Sex Assigned at Not on file 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 Gender Identity Not on file Sexual Orientation Not on file Occupation Industry Job Start Date Job End Date Not on file Not on file Not on file Not on file documented as of this encounter Plan of Treatment Upcoming Encounters Date Type Department Care Team (Late st Contact Info) Description 03/13/2025 4:30 PM CDT Telephone Check Up [facility]3] Oncology and Hematology - [place] [address] [place] [address] Armond Epstein MD [address] [facility] [address] [place] [address] documented as of this encounter Procedures Procedure Name Priority Date/Time Associated Diagnosis Comments KAPPA/LAMBDA LIGHT CHAINS Routine 02/20/2025 1:57 PM CDT documented in this encounter Results * KAPPA/LAMBDA, FREE LIGHT CHAINS (02/20/2025 1:57 PM CDT) Blood Armond Epstein MD CHEMISTRY ORDERABLES Final Resu lt documented in this encounter Visit Diagnoses Not on filedocumented in this encounter Care Teams Pricing Strategist Relationship Specialty Start Date End Date Vel Gilliam MD [address] [place] [address] PCP - General Family Practice 02/14/14 documented as of this encounter
--- OUTSIDE RECORDS SUMMARY | 2025-03-07 14:55 | XMS_ITS | Clinical Summary ---
Author Organization [facility] Address [address] [place] [address] Phone Care Team Providers Care Real Estate Underwriter Name Role Phone Fina Todd MD Unavailable [phone] Quintin Downey MD Unavailable [phone] Bipin Wetzel MD Unavailable Yancy Loera MD Unavailable [phone] Dwayne Hercules MD Unavailable Dwayne Hercules MD Unavailable [phone] Nigel Elizalde MD Unavailable [phone] Issa Sanches MD Unavailable [phone] Miscellaneous, Not In File Unavailable Unava Vel Lazo MD Primary Care Provider [phone] Allergies No known active allergies Medications simvastatin [...] (1 mg total) by mouth every morning 024 Active guaiFENesin ER (MUCINEX) 600 mg 12 hr tablet Take 1 tablet (600 mg total) by mouth as needed for cough 024 Active fluticasone-umec lidin-vilanter (Trelegy Ellipta) 100-62.5-25 mcg inhaler Inhale 1 puff daily Rinse mouth with water after use, do not swallow 60 each 3 024 Active Additional Information Patient taking differently:1 puff [...] PER DR LOERA INSTRUCTIONS. 90 tablet 1 025 Active clonazePAM (KlonoPIN) 0.5 mg disintegrating tablet [...] hours as needed for pain 10 tablet 025 Active gabapentin (NEURONTIN) 300 mg capsule [...] - Assessment & Plan (12/13/2023 1:29 PM POUNCER): #PAD #Asx ICA stenosis - Home med: Simvastatin 10mg daily GERD (gastroesophageal reflux disease) Assessment & Plan (12/13/2023 1:29 PM POUNCER): - Home med: Famotidine 40mg daily Elevated troponin 12/13/2023 Assessment & Plan (12/13/2023 1:31 PM POUNCER): - : Trop 47, 45, 49, plateaued - New RBBB on EKG compared to EKG 09/2023 Right bundle branch block (RBBB) 12/13/2023 Assessment & Plan (12/13/2023 1:40 PM POUNCER): - Noted on EKG 12/12/2023, changed from prior EKG 09/2023 - Follow up with outpatient transit coach operator Dr. Chester Closed fracture dislocation of sternum Assessment & Plan (12/13/2023 1:29 PM POUNCER): - pain controlled on RA and patient ambulatory after >12 hrs between accident and arriving to [facility]. - Repeat EKG with new RBBB [...] months. Assessment & Plan (11/29/2023 9:59 AM POUNCER): Asymptomatic and stable left ICA stenosis based on velocity criteria. As long as he's smoking, we recommend monitoring him with carotid doppler every six months. Assessment & Plan (09/02/2022 11:43 AM POUNCER): He has minimal right ICA stenosis. The left ICA stenosis is in the moderate- severe range based on velocity criteria with progression of one of three criteria when compared to prior doppler performed in 2020. He needs further imaging of the left ICA stenosis. Given his chronic renal insufficiency with creatinine of 3.09 and GFR of 20, we will avoid administration of iodinated contrast. He has a [employer] Essentio pacemaker implant. The MR department at [facility] is checking with [employer] to determine if his implant - [...] if change/issue/re-evaluation desired. Pacemaker 08/12/2020 Overview (08/12/2020): [employer] DDD Essentio pacemaker implanted on 08/12/20 for SSS. [facility] Overweight with body mass in dex (BMI) of 28 to 28.9 in adult 08/06/2020 Assessment & Plan (08/06/2020 2:26 PM CDT): Unchanged Discussed healthy diet and importance of regular physical activity. Sinoatrial node dysfunction 08/05/2020 Overview (08/05/2020): Added automatically from request for surgery [id number] Anemia associated with chronic renal failure 08/2020 Bradycardia 05/09/2019 Overview (05/28/2024): Last Assessment & Plan: Symptomatic bradycardia in association with sinus node dysfunction. I recommended that the patient consider placement of a dual-chamber pacemaker. I explained the risks and benefits, and he would like to proceed. My office will make the appropriate arrangements. From: Nathalia Sosa AE, JP, Ellenbogen KA, Zoran DIETZ III, Andrei BANG, Lucas LINARES, Da BREWSTER, Larry Larsen, Rosario SC, Minesh DL, Mildred MA, Merrick LK, Sydney RL, Danisha MH, Loi MJ, Donald LW, Sukhwinder HARDY 2012 ACCF/AHA/HRS focused update incorporated into the ACCF/AHA/HRS 2008 guidelines for device-based therapy of cardiac rhythm abnormalities: a report of the [place] [employer] Foundation/[place] [employer] Association Task Force on Practice Guidelines [...] Estes NAM III, Freedman RA, Gettes LS, Da BREWSTER, Larry G, Rosario SC, Minesh DL, Mildred MA, Merrick LK, Page RL, Danisha MH, Loi MJ, Donald LW, Sukhwinder HARDY 2012 ACCF/AHA/HRS focused update incorporated into the ACCF/AHA/HRS 2008 guidelines for device-based therapy of cardiac rhythm abnormalities: a report of the [place] [employer] Foundation/[place] [employer] Association Task Force on Practice Guidelines [...] his symptoms. He has not seen a transit coach operator for any reasons lately. He has not had any active heart symptoms otherwise that brought him to 1. We did do an EKG which confirmed the it bradycardia. It is probably worth setting up a consult with the transit coach operator to assess this further. If there is any acute heart symptoms or concerns at all was reasonable to going to the emergency room to seek more emergent her medial evaluation. They will call interim if there is any other concerns. Reviewed symptoms to watch for. Hemorrhage of rectum and anus 04/04/2019 Overview (04/04/2019): Added automatically from request for surgery [id number] Assessment & Plan (06/13/2020 2:44 PM CDT): [...] 10/25/2018 Assessment & Plan (10/25/2018 3:10 PM POUNCER): We reviewed current day concerns aboutbenzis and [...] 07/15/2017 Assessment & Plan (10/25/2018 3:09 PM POUNCER): Reviewed his recent labs. He is going to follow up with his middle school professional about the anemia. He does not believe [...] CDT): Patient is also followed by the coal pulverizing operator for his rheumatoid arthritis Monoclonal gammopathy [...] disease Assessment & Plan (09/02/2022 10:18 AM POUNCER): Stable lower extremity arterial disease both symptomatically and based on vascular study. Repeat ABIs in one year. Assessment & Plan (04/13/2017 6:13 PM CDT): Has carotid disease. Had an ultrasound in October. Followed by Dr. Herrmann Anxiety disorder 11/07/2015 Overview (01/27/2017): Depression, unspecified depression type Assessment & Plan (12/13/2023 1:28 PM POUNCER): - Home med: Alprazolam 0.25mg BID Sjogren's disease 01/07/2015 Assessment & Plan (12/13/2023 1:27 PM POUNCER): #Sjogrens/SLE - Home med: Plaquenil 200mg BID, Gabapentin 300mg BID Chronic kidney disease, stage IV (severe) 2009 Assessment & Plan (03/03/2020 1:12 PM CDT): He is going to call the middle school professional to make sure they are okay with [...] hypertension Assessment & Plan (12/13/2023 1:27 PM POUNCER): - Home med: Amlodipine 0.25mg BID, HCTZ 200mg daily, Metop 50mg daily, Irbesartan 300mg daily Assessment & Plan (03/03/2020 1:12 PM CDT): He is going to cautiously increase Avapro 150 mg twice a day. He is aware were going to have to watch his renal function. He is also going to reach out to his middle school professional to make sure they are on board with that. I did put lab orders in. He can acid middle school professional as well as coal pulverizing operator if they wanted the other labs [...] CPAP Assessment & Plan (12/13/2023 1:26 PM POUNCER): - CPAP ordered Tobacco abuse 10/24/1998 Overview (03/05/2019): Overview: Quit 1998; 40 pack years Assessment & Plan (11/29/2023 11:43 AM POUNCER): The importance of smoking cessation was discussed with the patient including the relationship between peripheral vascular disease and tobacco abuse. COPD (chronic obstructive pulmonary disease) Assessment & Plan (12/13/2023 1:26 PM POUNCER): - Home med: Trelegy Ellipta daily, Albuterol [...] 12/28/2019 Assessment & Plan (12/28/2019 12:47 PM POUNCER): I do not see any indication why [...] activity. Assessment & Plan (10/25/2018 3:09 PM POUNCER): BMI Follow-up includes: nutrition counseling, exercise counseling and education provided. Diarrhea 10/25/2018 03/05/2019 Foot pain, bilateral 06/27/2018 019 Skin lesions, generalized 01/26/2018 Assessment & Plan (01/26/2018 4:03 PM CDT): Patient has multiple skin issues on his back. I have elected to refer him to the glue plant operator. I do not see anything overly alarming right now. There is some much going on there though. Bronchitis 12/06/2017 03/05/2019 Assessment & Plan (12/06/2017 12:24 PM POUNCER): Still smoking colored sputum plus wheezes will [...] Anxiety Assessment & Plan (10/25/2018 3:10 PM POUNCER): He will continue on his Lexapro. I refilled the Xanax. He reports he is doing okay between the 2 medications. We reviewed medication side effect potentials Obesity with body mass index (BMI) of 30.0 to 39.9 11/07/2015 09/23/2020 Overview (01/27/2017): Lumbar herniated disc Assessment & Plan (12/28/2019 10:37 AM POUNCER): Unchanged Discussed healthy diet and importance of [...] is followed by the vascular surgeons at [facility]. Moderate major depression, single episode 05/24/2011 12/28/2019 Obesity 09/24/2010 03/05/2019 Microalbuminuria 08/26/2008 12/28/2019 Aortic valve sclerosis 07/29/200503/05 Encounters Date Type Department Care Team Description 03/01/2025 Telephone [facility] Vascular Surgery [address] [facility] Medical Office Building [address] [place] [address] Molina Jordan MD 02/18/2025 Orders Only [facility] Surgery [address] [facility] Advanced Medicine 8th [place] [address] [place] [phone] Molina Jordan MD End stage renal disease (HCC) (Primary Dx) 02/18/2025 Telephone [facility] Surgery [address] [facility] Floor 1 [place] [phone] Molina Jordan MD 02/06/2025 7:45 AM CDT Ancillary Procedure [facility] Cardiology [address] [facility] [address] [place] [phone] Bradycardia; Sinoatrial node dysfunction (HCC); Cardiac pacemaker in situ 02/05/2025 7:35 AM CDT Anesthesia Event [facility] Operating Room [address] [place] [phone] Miguel Urena MD 02/05/2025 7:30 AM CDT - 02/05/2025 10:00 AM CDT Surgery [facility] Operating Room [facility] [place] [phone] Molina Jordan MD Creation Right Arteriovenous Fistula 02/05/2025 5:32 AM CDT - 02/05/2025 10:36 AM CDT Hospital Encounter [facility] Operating Room [facility] [place] [phone] Molina Jordan MD Chronic kidney disease (CKD), stage V (HCC) (Primary Dx) Discharge Disposition: Discharge to home or self care 02/01/2025 Telephone [facility] Vascular Surgery [facility] Medical Office Building 3 [address] [place] [phone] Molina Jordan MD 01/29/2025 10:45 AM CDT Office Visit [facility] Cardiology at [address] [place] [address] Dwayne Fowler MD Chronic systolic CHF (congestive heart failure) (HCC) (Primary Dx); Chronic systolic congestive heart failure (HCC); Cardiomyopathy, unspecified type (HCC); Nonrheumatic mitral valve regurgitation; Pacemaker; Asymptomatic bilateral carotid artery stenosis 01/23/2025 11:59 PM CDT Anesthesia Event [facility] Operating Room [address] [place] [address] Shantal Gregory NP 01/21/2025 Telephone [facility] Surgery [address] [facility] Floor 1 [place] [phone] Esperanza Bedolla PA 01/21/2025 Results Follow-Up [facility] Cardiology [address] [place] [address] Dwayne Fowler MD 01/17/2025 2:30 PM CDT Ancillary Procedure [facility] Cardiology at [address] [place] [address] Chronic systolic CHF (congestive heart failure) (HCC); Cardiomyopathy, unspecified type (HCC); Nonrheumatic mitral valve regurgitation 01/16/2025 10:15 AM CDT Office Visit [facility] Surgery [address] [facility] 8th [place] [address] [place] [address] Molina Jordan MD Chronic kidney disease (CKD) stage G5/A1, glomerular filtration rate (GFR) less than or equal to 15 mL/min/1.73 square meter and albuminuria creatinine ratio less than 30 mg/g (HCC) (Primary Dx); Chronic kidney disease, stage 4 (severe) (HCC) 01/16/2025 9:30 AM CDT Ancillary Procedure [facility] Vascular Lab at the [facility] [address] [facility] 8th [place] [address] [place] [address] Chronic kidney disease (CKD) stage G5/A1, glomerular filtration rate (GFR) less than or equal to 15 mL/min/1.73 square meter and albuminuria creatinine ratio less than 30 mg/g (HCC) 01/08/2025 Telephone [facility] Vascular Surgery [address] [place] [address] Office Building [address] [place] [address] Molina Jordan MD 01/08/2025 Telephone [facility] Surgery [address] [facility] Floor 1 [place] [address] Molina Jordan MD 12/18/2024 Orders Only [facility] Vascular Surgery [address] [place] [address] Office Building [address] [place] [address] Molina Jordan MD Chronic kidney disease (CKD) stage G5/A1, glomerular filtration rate (GFR) less than or equal to 15 mL/min/1.73 square meter and albuminuria creatinine ratio less than 30 mg/g (HCC) (Primary Dx) from Last 3 Months Immunizations Immunization Administration Dates Next Due Flucelvax Influenza Quad MDI 06/25/2020 Influenza, Live, Intranasal, Quadrivalent 11/07/2015 Influenza, Quadrivalent, Hig h Dose, Preservative Free, Intrr 06/25/2020 Influenza, Quadrivalent, Spl it, Intramuscular 09/10/2014 Influenza, Quadrivalent, Spl it, Preservative Free, Intradermal 11/07/2015 Influenza, Split 08/29/2017 Influenza, Trivalent, High D ose, Split, Preservative Free, Intramuscular 08/18/2019,08/07/2018,07/20/2016,08/14 Influenza, Trivalent, IM (MDV) ,06/29/2011,07/21/2010,08/07,07/25/2003 Influenza, Unspecified 09/10/2018,2016,04/14/2016,03/25,09/17/2014,09/03/2014,06/29/2011 ,07/21/2010,08/07/2008,07/25/2003 Pneumococcal Conjugate PCV 13 06/01/2016 Pneumococcal Polysaccharide PPV23 03/28/2013,03/2008 TD Preservative Free 10/24/2011 Td, Unspecified 08/29/2008,10/24/1997 Td, adsorbed 08/29/2008,10/24/1997 Surgical History Surgery Date Site/Laterality Comments KNEE ARTHROPLASTY 10/24/1998 - 10/23/1999 Bilateral Knee replacement OTHER SURGICAL HISTORY 10/24/2006 - 10/23/2007 left knee reconstruction x 2 COLONOSCOPY 10/24/2018 - 10/23/20192008, 2015 HERNIA REPAIR 05/24/2016 - 06/23/2016 ATRIAL CARDIAC PACEMAKER INSERTION 07/24/2020 - 08/23/2020 HERNIA REPAIR 02/22/2024 - 03/23/2024 double Medical History Medical History Date Comments Hx Other Medical Chronic renal i mpairment; Comments: [facility] 11/07/2015 - Depression Depression Hypertension Hypertension Sjogren's syndrome Sjogrens synd zari; Comments: [facility] 11/07/2015 - Anxiety disorder Anxiety Hx Other Medical peripheral vasc ular disease; Comments: [facility] 11/07/2015 - Peripheral arterial occlusive disease 12/13/2023 PVD - Peripheral vascular disease; Comments: [facility] 11/07/2015 - Sleep apnea Sleep apnea; Com ments: [facility] 11/07/2015 - Chronic back pain Chronic back p ain; Comments: [facility] 11/07/2015 - Decreased testosterone level Low testosterone; Comments: [facility] 11/07/2015 - Inguinal hernia Inguinal hernia; Comments: [facility] 11/07/2015 - Cancer (HCC) prostrate Sleep difficulties [...] on file Legal Sex Male 3:08 AM POUNCER Gender Identity Male 09/15/2020 1:55 PM POUNCER Sexual Orientation Straight 03/02/2020 6: 25 PM [...] history exists Medical Devices Implanted Type Area Computer Numerical Control Operator Device Identifier Shelf Expiration Date Model / Serial / Lot TLM Com 7841 Lead 7841 Endocardial Pacing Mr Is-1 Bipolar Connection - [id number] - [id number] Implanted:Qty: 1 on 08/12/2020 by Issa Sanches MD at [facility] [employer] [id number] 11/20/2021 [id number] / [id number] / [employer] F[employer]o 7840 Lead 7840 Endocardial Pacing Mr Is-1 Bipolar Connection - [id number] - [id number] Implanted:Qty: 1 on 08/12/2020 by Issa Sanches MD at [facility] [employer]a [employer] [id number] 11/22/2021 7840 / [id number] / [employer]. L111 Essentio 4.45x5.02cm 2 Chamber Is1 Connector .75cm Pacemaker 13.7 - [id number] - [id number] Implanted:Qty: 1 on 08/12/2020 by Issa Sanches MD at [facility] [employer] C.[employer].M. [id number] 06/23/2022 [id number] / [id number] / Procedures Procedure Name Priority Date/Time Associated Diagnosis Comments DEVICE CHECK - REMOTE Routine 02/07/2025 9:53 AM CDT Bradycardia Sinoatrial node dysfunction (HCC) Cardiac pacemaker in situ ME AN PROCEDURE PLACEHOLDER Routine 02/05/2025 7:52 AM CDT ME AN ELECTIVE SUPRAGLOTTIC AIRWAY Routine 02/05/2025 7:52 [...] Modality Other Narrative 02/14/2025 5:10 PM CDT [employer] DDD Essentio pacemaker implanted on 08/12/20 for SSS. [facility]. Routine DDDR Pacemaker Remote. Transmission attached. Battery status: Ok, 3.5 years remaining battery life to MANE. Stable lead impedances, pacing and sensing thresholds. Presenting rhythm: AP-TAPE KELLER OPERATOR. AP-100%, TAPE KELLER OPERATOR-98%. 1 AT/AF episodes noted, 2 second duration, IEGM demonstrates noise. No Ventricular high rate episodes detected. Medications: ASA 81 mg, Toprol-XL. See scanned report. Office pacemaker follow up: 1 year. [facility] remote f/u 05/08/2025. Adali Vaca RN us Dwayne Fowler MD [facility] Final Result * ME AN ELECTIVE SUPRAGLOTTIC AIRWAY, ME AN PROCEDURE PLACEHOLDER (02/05/2025 7:52 AM CDT) Narrative Rebecca Weaver CRNA - 02/05/2025 7:52 AM CDT Rebecca Weaver CRNA 02/05/2025 7:53 AM Airway Patient location: OR Urgency: elective Date/time: 02/05/2025 7:42 AM Indications for airway management: anesthesia Difficult airway: no Staff: Placed by: WARP TENSION TESTER: Rebecca Weaver CRNA Resident: Miguelito Longoria Emergent [...] * (ABNORMAL) eGFR (02/05/2025 6:36 AM CDT) [facility] eGFR 16(L) >=60 mL/min/1. 73 m2 Comment: [...] 6:36 AM CDT 02/05/2025 6:47 AM CDT [facility] Iain Urena MD LAB BLOOD ORDERABLES F inal Result [facility] [address] Department of Laboratories [place], [place] [id number] * (ABNORMAL) Basic metabolic panel (02/05/2025 6:36 AM CDT) [facility] Sodium 142 135 - 145 mmol/L Potassium, pl 4.8 3.3 - 4.9 mmol/L [facility] Chloride 110 97 - 110 mmol/L [facility] CO2 17(L) 22 - 32 mmol/L [facility] Anion gap 15 2 - 15 mmol/L [facility] BUN 70(H) 6 - 25 mg/dL [facility] Creatinine 3.66(H) 0.80 - 1.30 mg/dL [facility] Glucose 71 70 - 199 mg/dL [facility] Comment: Interpretive Data Fasting glucose >/= 126 [...] 2022. Calcium 8.7 8.5 - 10.3 mg/dL [facility] Blood 02/05/2025 6:36 AM CDT 02/05/2025 6:47 AM CDT [facility] Iain Urena MD LAB BLOOD ORDERABLES F inal Result [facility] [address] Department [place] [address] * TRANSTHORACIC ECHO (TTE) COMPLETE W DOPPLER/CF WO CONTRAST (01/17/2025 3:06 PM CDT) LV EF 30 % CONS SCIMAGE Anatomical Region Laterality Modality Ultrasound 01/17/2025 2:30 PM CDT Narrative 01/18/2025 7:28 AM CDT [facility] Cardiology [address], [address], [place] [address] P:[phone] P:[phone] Echocardiographic Report Patient Name: UNIQUE FRANK H : 1940 Study Date: 01/17/2025 2:30:38 PM Gender: M Tech: SW Location: [facility] Ref Provider: DWAYNE FOWLER Height(Cm): [...] Site: Exam was interpreted at [facility]. Left Ventricle: Moderate enlargement of left [...] noted. Electronically Signed By: Thomas Brown MD, [facility] 01/18/2025 7:27:37 AM CDT Procedure Note Thomas Brown MD - 01/18/2025 [facility] Cardiology [address], [address], [place] [address] P:[phone] P:[phone] Echocardiographic Report Patient Name: UNIQUE FRANK H : 1940 Study Date: 01/17/2025 2:30:38 PM Gender: M Tech: Location: [facility] Ref Provider: DWAYNE FOWLER Height(Cm): 168 [...] Site: Exam was interpreted at [facility]. Left Ventricle: Moderate enlargement of left [...] noted. Electronically Signed By: Thomas Brown MD, [facility] 01/18/2025 7:27:37 AM CDT Dwayne Fowler MD CV ECHO PROCEDURES Final Result * US Vein Mapping Fistula Access, Bilateral (01/16/2025 9:58 AM CDT) Anatomical Region Laterality Modality Vascular Bilateral Ultrasound 01/16/2025 9:30 AM CDT Narrative 01/16/2025 6:14 PM CDT [facility] - Department of Vascular Surgery, Vascular Laboratory [address] [place] [address] Upper Extremity Vein Mapping Report Patient Name: UNIQUE FRANK : 1940 (84y 2m) Study Date: 01/16/2025 9:30:52 AM Gender: M Peoplesoft Consultant: Samantha MCNULTY Location: [facility] Provider: MOLINA JORDAN Quality: Adequate Order Provider: [...] Value Units Left Value Units FINDINGS: Performing Peoplesoft Consultant: Jazzmine Mcnulty RVT. Bilateral: Venous Doppler signals [...] above. Electronically Signed By: Varghese Ryan MD [facility] [phone] 01/16/2025 6:14:30 PM CDT Procedure Note Varghese Ryan MD - 01/16/2025 [facility] - Department of Vascular Surgery,Vascular Laboratory [address] [place] [address] Upper Extremity Vein Mapping Report Patient Name: UNIQUE FRANK : 1940 (84y 2m) Study Date: 01/16/2025 9:30:52 AM Gender: M [employer] Consultant: Samantha MCNULTY Location: [facility] Provider: MOLINA JORDAN Quality: Adequate Order Provider: [...] Value Units Left Value Units FINDINGS: Performing Peoplesoft Consultant: Jazzmine Mcnulty RVT. Bilateral: Venous Doppler signals [...] above. Electronically Signed By: Varghese Ryan MD [facility] [phone] 01/16/2025 6:14:30 PM CDT Molina Jordan MD [facility] PROCEDURES Final Resul t from Last [id number] [facility] [address] Advance Directives For more information, please contact: [phone] * Full Code (Latest Code Status on File) Date Activated Date Inactivated Comments 11/26/2024 11:44 AM 11/26/2024 6:45 PM * Full Code Date Activated Date Inactivated Comments 12/12/2023 3:26 PM 12/13/2023 7:42 PM * Full Code Date Activated Date Inactivated Comments 04/20/2019 9:05 AM 04/20/2019 2:46 PM * Full Code Date Activated Date Inactivated Comments 04/20/2019 9:04 AM 04/20/2019 9:05 AM Care Teams Real Estate Underwriter Relationship Specialty Start Date End Date Vel Gilliam MD [address] [address] PCP - General Family Medicine 11/07/24 Fina Todd MD Geology Professor Dermatology 03/05/19 Quintin Downey MD Consulting Physician Nephrology 03/06/19 Bipin Wetzel MD Referring Physician Cardiovascular Disease 04/08/20 Yancy Loera MD [address] [place] [address] Referring Physician Rheumatology 04/08/20 Dwayne Hercules MD [address] [place] [address] Consulting Physician Hematology and Oncology 09/30/20 Dwayne Hercules MD [address] [place] [address] Medical Oncologist/Hematologis t Hematology and Oncology 09/30/20 Nigel Elizalde MD [address] [facility] [address] [facility] [address] [place] [address] Consulting Physician Urology 11/29/23 Issa Sanches MD [address] [address] Consulting Physician Cardiology 11/29/23 Miscellaneous, Not In File 12/13/23
--- OUTSIDE RECORDS SUMMARY | 2025-03-07 14:55 | XMS_ITS | Encounter Summary ---
Author Organization [facility] Address [address] [place] [address] Phone Care Team Providers Care Court Assistant Name Role Phone Pasha Gutierrez MD Primary Care Provider [phone] Pasha Gutierrez MD Unavailable [phone] Lynsey Nur MD Primary Care Provider Lynsey Nur MD Unavailable [phone] Yancy Romeo MD Unavailable [phone] Fina Todd MD Unavailable [phone] Nigel Herrmann MD Unavailable Ezekiel Duenas MD Unavailable [phone] Quintin Doweny MD Unavailable [phone] Bipin Wetzel MD Unavailable Bipin Wetzel MD Unavailable Yancy Romeo MD Unavailable [phone] Raul Bunn MD Unavailable Nicki Villanueva MD Unavailable [phone] Maged Hercules MD Unavailable [phone] Maged Hercules MD Unavailable Vel Gilliam MD Primary Care Provider Nigel Elizalde MD Unavailable [phone] Issa Sanches MD Unavailable [phone] Miscellaneous, Not In File Unavailable Meredithva Vel Lazo MD Primary Care Provider [phone] Encounter Details Date Type Department Care Team [...] on file Legal Sex Male 3:08 AM PROGRAMMING INTERN Gender Identity Male 09/15/2020 1:55 PM PROGRAMMING INTERN Sexual Orientation Straight 03/02/2020 6: 25 PM [...] of exposure precautions are 12/23/23. SANCHEZ Pereira, [facility]. 12/13/2023 12/14/2023 12/24/2023 3:[address] documented as of this encounter Care Teams Court Assistant Relationship Specialty Start Date End Date Pasha Gutierrez MD [address] [place] [address] [address] [address] PCP - General Internal Medicine 11/28/17 10/05/18 Lynsey Nur MD [facility] [address] [place] [address] PCP - General Internal Medicine 10/06/18 07/29/21 Lynsey Nur MD [address] [place] [address] PCP - Essence Attributed PCP 10/24/15 06/15/22 Vel Gilliam MD [address] [place] [address] PCP - General Family Medicine 07/30/21 11/06/24 Vel Gilliam MD [address] [place] [address] PCP - General Family Medicine 11/07/24 Pasha Gutierrez MD [facility] [address] [place] [address] 11/28/17 10/05/18 Yancy Romeo MD [address] [place] [address] Consulting Physician Rheumatology 03/05/19 04/07/20 Fina Todd MD [address] [place] [address] Director Of Blood Dermatology 03/05/19 Nigel Herrmann MD [address] [place] [address] Surgeon Vascular Surgery 03/05/19 11/28/23 Ezekiel Duenas MD [address] [place] [address] Surgeon Orthopedic Surgery 03/06/19 11/28/23 Quintin Downey MD [address] [place] [address] Consulting Physician Nephrology 03/06/19 Bipin Wetzel MD [address] [place] [address] Referring Physician Cardiovascular Disease 12/28/19 Bipin Wetzel MD [address] [place] [address] Referring Physician Cardiovascular Disease 04/08/20 Yancy Romeo MD [address] [place] [address] Referring Physician Rheumatology 04/08/20 [place] [address] [place] [address] Consulting Physician Gastroenterology 08/04/20 0 Nicki Villanueva MD [address] [place] [address] Medical Oncologist/Hematologi st Hematology 08/04/20 09/29/20 Maged Hercules MD [address] [place] [address] Consulting Physician Hematology and Oncology 09/30/20 Maged Hercules MD [address] [place] [address] Medical Oncologist/Hematologi st Hematology and Oncology 09/30/20 Nigel Elizalde MD [address] [place] [address] Consulting Physician Urology 11/29/23 Issa Sanches MD [address] [facility] [address], [place] [address] Consulting Physician Cardiology 11/29/23 Miscellaneous, Not In File 12/13/23 documented as of this encounter
--- OUTSIDE RECORDS SUMMARY | 2025-03-07 14:55 | XMS_ITS | Encounter Summary ---
Author Organization [facility] Address [address] [place] [address] Care Team Providers Care Order Planner Name Role Phone Lynsey Nur MD Primary Care Provider Lynsey Nur MD Unavailable [phone] Yancy Romeo MD Unavailable [phone] Fina Todd MD Unavailable [phone] Nigel Herrmann MD Unavailable Ezekiel Duenas MD Unavailable Quintin Downey MD Unavailable [phone] Bipin Wetzel MD Unavailable Bipin Wetzel MD Unavailable Yancy Romeo MD Unavailable [phone] Raul Bunn MD Unavailable [phone] Nicki Villanueva MD Unavailable Maged Hercules MD Unavailable [phone] Maged Hercules MD Unavailable [phone] Vel Gilliam MD Primary Care Provider [phone] Nigel Elizalde MD Unavailable [phone] Issa Sanches MD Unavailable [phone] Miscellaneous, Not In File Unavailable Unava ilable Vel Gilliam MD Primary Care Provider Encounter Details Date Type Department Care Team (Late st Contact Info) Description 05/18/2019 Telephone [facility] - Interventional Radiology [address] [place] [id number] Rashmi Houser RN Social History Tobacco Use Types Packs/Day Years Used Date Smoking Tobacco: Former Cigarettes Q uit: 1998 Smokeless Tobacco: Never Alcohol Use Standard Drinks/Week Comments No 0 (1 standard drink = 0.6 oz pur e alcohol) Sex and Gender Information Value Date Recorded Sex Assigned at Not on file Legal 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 SANCHEZ Pereira, [facility]. 12/13/2023 12/14/2023 12/24/2023 3:[address] documented as of this encounter Care Teams Order Planner Relationship Specialty Start Date End Date Lynsey Nur MD PCP - General Internal Medicine 10/06/18 07/29/21 Lynsey Nur MD [address] [place] [address] PCP - Essence Attributed PCP 10/24/15 06/15/22 Vel Gilliam MD [address] [place] [address] PCP - General Family Medicine 07/30/21 11/06/24 Vel Gilliam MD [address] [place] [address] PCP - General Family Medicine 11/07/24 Yancy Romeo MD [address] [place] [address] Consulting Physician Rheumatology 03/05/19 04/07/20 Fina Todd MD [address] [place] [place] [address] House Painting Instructor Dermatology 03/05/19 Nigel Herrmann MD [address] [place] [address] Surgeon Vascular Surgery 03/05/19 11/28/23 Ezekiel Duenas MD [address] [place] [address] Surgeon Orthopedic Surgery 03/06/19 11/28/23 Quintin Downey MD [address] [place] [address] Consulting Physician Nephrology 03/06/19 Bipin Wetzel MD [address] [place] [address] Referring Physician Cardiovascular Disease 12/28/19 Bipin Wetzel MD [address] [place] [address] Referring Physician Cardiovascular Disease 04/08/20 Yancy Romeo MD [address] [facility] [address] [place] [address] Referring Physician Rheumatology 04/08/20 [place] [address] [place] [address] Consulting Physician Gastroenterology 08/04/20 0 Nicki Villanueva MD [address] [place] [address] Medical Oncologist/Hematologi Hematology 08/04/20 09/29/20 Maged Hercules MD [address] [place] [address] Consulting Physician Hematology and Oncology 09/30/20 Maged Hercules MD [address] [place] [address] Medical Oncologist/Hematologi Hematology and Oncology 09/30/20 Nigel Elizalde MD [address] [place], [place] [address] Consulting Physician Urology 11/29/23 Issa Sanches MD [address] [facility] [address] [place] [address] Consulting Physician Cardiology 11/29/23 Miscellaneous, Not In File 12/13/23 documented as of this encounter
--- NOTE | 2025-03-07 14:56 | ECG_ITS ---
Test Date: 2025-03-07 15:05:34 Measurements Intervals [place] Rate: 70 P: -89 AR: 362 QRS: 7 QRSD: 178 T: 166 QT: 469 QTc: 507 Interpretive Statements ELECTRONIC ATRIAL PACEMAKER ELECTRONIC VENTRICULAR PACEMAKER ATYPICAL ECG Electronically Signed On 03-08-2025 09:46:44 CDT by Maged Fowler M.D.
--- OUTSIDE RECORDS SUMMARY | 2025-03-07 15:11 | XMS_ITS | Continuity of Care Document ---
Author Organization [facility] Address [address] [place] [address] Phone Care Team Providers Care Teacher Of The Deaf Name Role Phone Unavailable Unavailable Unavailable Procedures [...] on Encounter Office/outpat ient visit,est, [facility], [address], [place], [place], [id number], [place] tel:[phone] [facility] No Information 2-200 7 No Information Referring Provider: Gavin Larsen, [address] [facility] [address], [place], [address]. tel:[phone] Office/outpat ient visit,est, mod [facility], [address] [facility] [address], [place], [place], [id number], [place] tel:[phone] [employer] [facility] No Information 6 No Information Referring Provider: Gavin Larsen, [address], [place], [address]. tel:[phone] Office/outpat ient visit,est, [facility], [address] [facility] [address], [place], [place], [id number], [place] tel:[phone] [employer] [facility] No Information 6 No Information Referring Provider: Gavin Larsen, [address], [place], [address]. tel:[phone] Office/outpat ient visit,[facility], [facility], [address] [address], [place], [place], [id number], [place] tel:[phone] [employer] [facility] No Information 6 No Information Referring Provider: Gavin Larsen, [address], [place], [address]. tel:[phone] Office/outpat ient visit,[facility], [facility], [address], [id number], [place] tel:[phone] [employer] No Information 6 No Information Family History Family Member Type Diagnosis Age At Onset No Information Payers Payer name Insurance type Covered constitution party ID Setha hayder(s) [facility] [id number] Social History Type Description Quantity Date [...]
--- OUTSIDE RECORDS SUMMARY | 2025-03-07 15:11 | XMS_ITS | Continuity of Care Document ---
Author Organization [facility] Address [address] [facility] [address] [place] [address] Phone Care Team Providers Care Physician General Internal Medicine Name Role Phone Kt Martínez MD Unavailable [...] Copied on Encounter OFFICE/OUTPAT IENT VISIT EST [facility] , [address], [address], tel:[phone] [facility] History of revision of total replacement of left knee joint 2 L'Hommedieu Muhlenberg. [address] [place], [place], [id number]. tel:[phone] Specialist: [address], [place], [address]. tel:[phone] Provider: Vel Aguiar, [address] , [place], [address]. tel:[phone] OFFICE/OUTPAT IENT VISIT EST [facility] , [address] [facility] [address], [place], [address], [place] tel:[phone] [facility] History of revision of total replacement of left knee jointContusi on of left knee, subsequent encounter 1 L'Hommedieu Muhlenberg. [address] [facility] , [place], [place], [id number]. tel:[phone] Specialist: [address], [place], [address]. tel:[phone] Provider: Vel Aguiar, [address], [place], [address]. tel:[phone] OFFICE/OUTPAT IENT VISIT EST [facility] , [address] [facility] [address], [place], [address], [place] tel:[phone] [facility] Body mass index [BMI] 29.0-29.9, adultHistory of revision of total replacement of left knee jointContusi on of left knee, initial encounter - 1 Armaan'Douglas Meraz. [address] [facility], [place], [place], [address]. tel:[phone] Specialist: [address], [place], [address]. tel:[phone] Provider: Darci De Anda, [address], [place], [address]. tel:[phone] OFFICE/OUTPAT IENT VISIT EST [facility] , [address] [facility] [address], [place], [address], [place] tel:[phone] [facility] Lumbago with sciatica, left sideLumbago with sciatica, right sideSpinal stenosis, lumbar region without neurogenic claudication -201 9 [facility]. [address] [place], [place], [address]. tel:[phone] Specialist: [address], [place], [address]. tel:[phone] Provider: Vel Aguiar, [address], [place], [address]. tel:[phone] OFFICE/OUTPAT IENT VISIT EST [facility], [address] [facility] [address], [place], [address], [place] tel:[phone] [facility] Lumbago with sciatica, right sideSpinal stenosis of lumbar region with neurogenic claudication Lumbago with sciatica, left side Apr-0 9-201 9 Liang Smiley. [address] [place], [place], [address]. tel:[phone] Specialist: [address], [place], [address]. tel:[phone] ng Provider: Katelin Zapien [address], [place], [address]. tel:[phone] OFFICE/OUTPAT IENT VISIT [facility], [address] [facility] [address], [place], [address], [place] tel:[phone] [facility] Body mass index (BMI) 29.0-29.9, adultEssenti al (primary) hypertension History of total left knee replacementA cquired unequal limb length of left femurAfterca re following left knee joint replacement surgery Nov- 9 Yulissa Falcon. [address] [facility] [address], [place], [place], [address]. tel:[phone] Referring Provider: Lynsey Bell [address], [place], [address]. tel:[phone] OFFICE/OUTPAT IENT VISIT [facility] , [address] [address], [address], [place] tel:[phone] [facility] Status post total left knee replacementS tatus post total right knee replacement Sep-2 7 Driss Garcia. [address] [place], [place], [address]. tel:[phone] OFFICE/OUTPAT IENT VISIT [facility], [address] [facility] [address], [place], [address], [place] tel:[phone] [facility] Body mass index (BMI) 29.0-29.9, adultSpinal stenosis of lumbar regionLumbag o with sciatica, right side Sep-0 5-201 7 Liang Smiley. [address] [place], [place], [id number]. tel:[phone] Specialist: Donnell Marshall, [address] [place], [address]. tel:[phone] OFFICE/OUTPAT IENT VISIT EST [facility] , [address] [place] [address], [address], [place] tel:[phone] [facility] Status post total left knee replacement 6 Driss Garcia. [address] [place], [place], [address]. tel:[phone] OFFICE/OUTPAT IENT VISIT EST [facility] , [address] [place] [address], [place], [address], [place] tel:[phone] [facility] Pain due to total left knee replacement, subsequent encounter 6 Driss Garcia. [address] [facility], [place], [place], [address]. tel:[phone] OFFICE/OUTPAT IENT VISIT EST [facility] , [address] [place] [address], [place], [address], [place] tel:[phone] [facility] Status post total left knee replacementP ain due to total left knee replacement, initial encounter 6 Driss Garcia. [address] [place], [place], [address]. tel:[phone] OFFICE/OUTPAT IENT VISIT EST [facility], [address] [facility] [address], [place], [address], [place] tel:[phone] [facility] Pain, chronic postoperativ ePrimary osteoarthrit is of left knee 6 Liang Smiley. [address] [place], [place], [address]. tel:[phone] Specialist: Donnell Marshall, [address] [place], [address]. tel:[phone] OFFICE/OUTPAT IENT VISIT EST [facility], [address] [place] [address], [address], [place] tel:[phone] [facility] Pain, chronic postoperativ eLeft knee pain 6 Liang Baljit. [address] [place], [place], [address]. tel:[phone] Specialist: Donnell Marshall, [address] [place] [address], [address]. tel:[phone] [facility], [address] [place] [address], [address], [place] tel:[phone] [facility] Pain, chronic postoperativ ePrimary osteoarthrit is of left knee 5 Liang Baljit. [address] [place] [address], [id number]. tel:[phone] Specialist: Donnell Marshall, [address] [place] [address], [address]. tel:[phone] [facility], [address] [place] [address], [address], [place] tel:[phone] [facility] Left knee pain 5 Liang Baljit. [address] [place], [place], [address]. tel:[phone] [facility], [address] [place] [address], [address], [place] tel:[phone] [facility] Pain, chronic postoperativ ePrimary osteoarthrit is of left knee 5 Liang Baljit. [address] [place], [place], [address]. tel:[phone] Specialist: Donnell Marshall, [address] [place] [address], [address]. tel:[phone] [facility], [address] [place], [place] [address], [place], [address], [place] tel:[phone] [facility] Left knee painPain, chronic postoperativ e - 5 Liang Smiley. [address] [place], [place], [address]. tel:[phone] Specialist: Donnell Marshall, [address] [place] [address], [address]. tel:[phone] OFFICE/OUTPAT IENT VISIT EST [facility], [address] [place] [address], [place], [address], [place] tel:[phone] [facility] Spinal stenosis of lumbar regionBilate ral low back pain without sciaticaRigh t knee painLeft knee painPain, chronic postoperativ e 0- 5 Liang Smiley. [address] [place] [address], [id number]. tel:[phone] Specialist: Donnell Marshall, [address] [place] [address], [address]. tel:[phone] Provider: Baljit Tavera, [address] [place] [address], [address]. tel:[phone] OFFICE/OUTPAT IENT VISIT EST [facility], [address] [place] [address], [place], [address], [place] tel:[phone] [facility] Lumbago with sciatica, left sideLumbago with sciatica, right sideSpinal stenosis of lumbar region 5 Liang Smiley. [address] [place] [address], [id number]. tel:[phone] Specialist: Donnell Marshall, [address] [place] [address], [address]. tel:[phone] OFFICE/OUTPAT IENT VISIT EST [facility] , [address] [facility] [address], [place], [address], [place] tel:[phone] [facility] Left knee painRight hip painStatus post total right knee replacementS tatus post total left knee replacement 5 Driss Garcia. [address] [facility], [place], [place], [address]. tel:[phone] OFFICE/OUTPAT IENT VISIT EST [facility], [address] [place] [address], [address], [place] tel:[phone] [facility] Displacement of lumbar intervertebr al discSpinal stenosis of lumbar region 5 Liang Smiley. [address] [place], [place], [address]. tel:[phone] Specialist: Donnell Marshall, [address] [place] [address], [address]. tel:[phone] OFFICE/OUTPAT IENT VISIT EST [facility] , [address], [address], [place] tel:[phone] [facility] Other complication s due to internal joint prosthesisAf tercare following joint replacement 5 Driss Garcia. [address] [facility], [place], [place], [address]. tel:[phone] [facility] , [address], [address], [place] tel:[phone] [facility] Aftercare following joint replacement 5 Kathrine Herrera. [address] [facility] [address] [place] [address], [id number]. tel:[phone] OFFICE/OUTPAT IENT VISIT EST [facility], [address] [place] [address], [address], [place] tel:[phone] [facility] BACK PAIN (chief complaint) LumbagoSpina l stenosis of lumbar regionSciati caOverweight 5 Liang Smiley. [address] [place], [place], [address]. tel:[phone] Specialist: Donnell Marshall, [address] [place] [address], [address]. tel:[phone] OFFICE/OUTPAT IENT VISIT [facility], [address] [place] [address], [address], [place] tel:[phone] [facility] BACK FOLLOW UP (chief complaint) Spinal stenosis of lumbar regionLumbag oLumbosacral spondylosisD isplacement of lumbar intervertebr al disc Feb-0 2-201 5 Primitivo Jyoti. [address] [place] [address], [place], [place], [address]. tel:[phone] Specialist: Donnell Marshall, [address] [place] [address], [address]. tel:[phone] OFFICE/OUTPAT IENT VISIT [facility], [address] [place] [address], [address], [place] tel:[phone] [facility] Follow Up of 1mo for low back pain. PT not helping (chief complaint) LumbagoLumbo sacral spondylosisD isplacement of lumbar intervertebr al discSpinal stenosis of lumbar region Nakul-0 5-201 5 Liang Baljit. [address] [place] [address], [id number]. tel:[phone] Specialist: Donnell Marshall, [address] [place] [address], [address]. tel:[phone] OFFICE CONSULTATION [facility], [address] [place] [address], [address], [place] tel:[phone] [facility] LOW BACK PAIN (chief complaint) LumbagoLumbo sacral spondylosis Dec-0 8-201 4 Liang Baljit. [address] [place] [address], [id number]. tel:[phone] Referring Provider: Donnell Antunez, [address] [place] [address], [address]. tel:[phone] [facility], [address] [place] [address], [address], [place] tel:[phone] [facility] lumbar spine (chief complaint) Spondylolist hesis of lumbar region 4 Curylo Donnell. [address] [place], [place], [address]. tel:[phone] Referring Provider: Donnell Antunez, [address] [place], [address]. tel:[phone] OFFICE/OUTPAT IENT VISIT [facility], [address] [place] [address], [address], [place] tel:[phone] [facility] lumbar spine (chief complaint) lumbar spine (chief complaint) Spondylolist hesis of lumbar regionLumbag o 4 Curylo Donnell. [address] [place], [place], [address]. tel:[phone] Referring Provider: Vel Aguiar, [address], [place], [address]. tel:[phone] OFFICE/OUTPAT IENT VISIT EST [facility] , [address], [address], [place] tel:[phone] [facility] replacement Sep-0 8-201 4 Driss Garcia. [address] [place], [place], [address]. tel:[phone] Referring Provider: Vel Aguiar, [address], [place], [address]. tel:[phone] OFFICE/OUTPAT IENT VISIT EST [facility] , [address] [facility] [address], [place], [address], [place] tel:[phone] [facility] following joint replacement Sep-0 9-201 3 Driss Garcia. [address] [facility], [place], [place], [address]. tel:[phone] Referring Provider: Vel Aguiar, [address], [place], [address]. tel:[phone] [facility] , [address] [facility] [address], [place], [address], tel:[phone] [facility] Aftercare following joint replacementP atellar tendinitis 2 Kathrine Herrera. [address] [facility] [address], [place], [place], [address]. tel:[phone] Referring Provider: Gavin Larsen, [address] [facility], [place], [address]. tel:[phone] Family History Family Member Type Diagnosis Age [...] Provider Payers Payer name Insurance type Covered libertarian ID Authoriza tival(s) [id number] Social History Type Description Quantity Date Captured [...]
[2025-03-07 15:20] LABS: Basophils Percent Auto 0.4 % (0.2-1.2); Eosinophils Percent Auto 0.1 % (0-4.4); Hematocrit 28.2 % (42.0-52.0); Hemoglobin 8.6 g/dL (14.0-18.0); Immature Granulocyte Absolute 0.02 K/mm3 (0.00-0.031); Immature Granulocyte Percent A 0.3 % (0-0.5); Lymphocytes Absolute Auto 0.76 K/mm3 (0.9-3.2); Lymphocytes Percent Auto 10.9 % (18.3-44.2); Mean Corpuscular HGB Conc 30.5 g/dl (32-36); Mean Corpuscular Hemoglobin 31.9 pg (26-34); Mean Corpuscular Volume 104.4 fl (80-100); Mean Platelet Volume 9.8 fl (7.4-10.4); Monocytes Absolute Auto 0.7 K/mm3 (0.1-0.6); Monocytes Percent Auto 9.6 % (2.6-8.5); Neutrophils Absolute Auto 5.5 K/mm3 (1.3-6.7); Neutrophils Percent Auto 78.7 % (45.5-73.1); Platelet Count Result 249 k/mm3 (150-375); Red Cell Distribution Width 12.8 % (11.5-14.5)
[2025-03-07 15:31] LABS: Alanine Aminotransferase 32 U/L (6-50); Albumin Level 3.9 g/dL (3.5-5.1); Alkaline Phosphatase 75 U/L (38-126); Anion Gap 10 mmol/L (4-12); Aspartate Amino Transferase 35 U/L (17-59); Bilirubin,Total 0.8 mg/dL (0.2-1.3); Blood Urea Nitrogen 80 mg/dL (9-20); Calcium 9.3 mg/dL (8.4-10.2); Carbon Dioxide 17 mmol/L (22-30); Chloride 109 mmol/L (98-107); Estimated CRCL calculation 12 ml/min; Estimated Glomerular Filt Rate 15; Glucose 112 mg/dL (65-110); Magnesium 2.2 mg/dL (1.6-2.3); Potassium 4.7 mmol/L (3.4-5.0); Sodium 136 mmol/L (137-145)
[2025-03-07] MEDS: BUMETANIDE INJ 1 MG/4 ML VIAL 2 MG IV PUSH (15:39)
[2025-03-07 15:40] LABS: NT Pro B Type Natriuretic Pept > 30000 pg/mL (19.9-100)
--- NOTE | 2025-03-07 16:43 | ED_ITS ---
HPI - SOB/Dyspnea General Chief Complaint: Shortness of Breath/Dyspnea Stated Complaint: Shortness of breath-low oxygen Time Seen by Provider: 03/07/25 15:01 History of Present Illness HPI Narrative: Patient presents with shortness of breath, has been ongoing for last week, he feels like he needs to cough but nothing comes out except for some phlegm. Does have history of CHS, and has been taking all his medications including his Bumex. No fevers or chills. Sent here due to oxygen. Related Data Home Medications ?Medication ?Instructions ?Recorded ?Confirmed ?Last Taken ?Type hydroxychloroquine 200 mg tablet 200 mg PO BID 07/27/20 12/21/24 08/11/24 History amlodipine 10 mg tablet 10 mg PO QAM 08/19/21 12/21/24 08/11/24 History fluticasone fur. 100 mcg-umeclid 1 inh inhalation .QD 12/22/23 12/21/24 08/11/24 History 62.5 mcg-vilant 25 mcg inhalat.powder (Trelegy Ellipta) metoprolol succinate 100 mg 100 mg PO QAM 01/04/24 12/21/24 08/11/24 History tablet,extended release 24 hr montelukast 10 mg tablet 10 mg PO HS 02/29/24 12/21/24 08/11/24 History albuterol sulfate 90 mcg/actuation 2 puff inhalation Q6H PRN 08/12/24 12/21/24 08/11/24 History aerosol inhaler Shortness Of Breath gabapentin 300 mg capsule mg PO 09/11/24 12/21/24 Unknown History Allergies Allergy/AdvReac Type Severity Reaction Status Date / Time clonazepam AdvReac Mild Nightmare Verified 03/07/25 15:03 Review of Systems 2 Review of Systems: All systems reviewed & are unremarkable except as noted in HPI and below PMFSH Past Medical History Medical History Prostate cancer Managed by Dr. Elizalde Recurrent inguinal hernia without obstruction or gangrene Renal mass, right Rheumatoid arthritis History of prostate cancer Overactive bladder COPD exacerbation Screening for thyroid disorder COVID Persistent cough Encounter to establish care Orthostasis Erythropoietin deficiency anemia Rectus diastasis Peripheral artery disease With moderately decreased ABIs bilaterally December 2011 Monoclonal gammopathy Near syncope Sjogrens syndrome Spinal stenosis at L4-L5 level Bilateral carotid artery stenosis 50 to 69% stenosis on the right and greater than 70% stenosis on the left Lupus (systemic lupus erythematosus) Obstructive sleep apnea With nasal CPAP use Essential hypertension CKD (chronic kidney disease) Stage III managed by Dr. Quintin Downey HTN (hypertension) Surgical History Surgical History History of prostate surgery H/O bilateral inguinal hernia repair pen reccurent RIH and open L ing. hernia rep w/ mesh 03/12/24 S/P bilateral inguinal hernia repair History of permanent cardiac pacemaker placement 2021 Hx of left inguinal hernia repair 2015, repair of mesh failure History of right inguinal hernia repair 2015, previous repair of mesh failure History of total bilateral knee replacement With the right knee being replaced once in the left knee being replaced 3 times with chronic left knee pain Family History Family History Mother Cirrhosis Sibling Esophageal cancer Father Acute myocardial infarction Lung disease Heart disease Sibling Esophageal cancer Skin cancer Social History Social History Social History: Patient continues to smoke half a pack a day. Denies drug use. No alcohol use. Lives at home with his and daughter. 3 dogs. Patient smoked half a pack a day (stopped 1 month ago). Denies drug use. No alcohol use. Code status: Full code Healthcare power of associate attorney: Linda Frank () Smoking packs per day: 0.5 Smoking cigarettes per day: 10.0 Years smoked: 65 Smoking pack-years: 32.50 Smoking status: Former smoker Tobacco type: cigarettes Second hand tobacco smoke exposure: No Smoking end date: 06/24/24 Additional smoking assessment comments: SMOKING 0.5 PACK/DAY Alcohol intake: never Substance use: never Substance use type: does not use Do You Feel Safe in your Home?: Yes Lack of Transportation: No Lack of Food: Never True Current Housing: I Have Housing Concerned About Future Housing: No Difficulty Paying Gas/Electric Bills: No Difficulty Paying for Meds: No Currently Unemployed: No Education: High School Diploma/GED Difficulty w/ Childcare or Family Care: No Living arrangements: with family Additional living arrangements comments: and daughter 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 EYES: EOMI, conjunctiva normal ENT: Hearing grossly intact LUNGS: No wheezing but some diminished lung sounds HEART: [Regular rate and rhythm] ABD: [Soft], [nontender to palpation] EXT: Normal range of motion SKIN: [No rashes or lesions.] NEURO: [Alert and oriented x 3. No gross focal sensory or strength deficits.] PSYCH: Normal affect Course Vital Signs Vital signs: Vital Signs Pulse Rate 70 03/07/25 15:00 Respiratory Rate 25 H 03/07/25 15:00 Blood Pressure 111/89 03/07/25 15:00 Temperature 97.5 F L 03/07/25 15:15 Pulse Rate 70 03/07/25 15:48 Respiratory Rate 18 03/07/25 15:48 Blood Pressure 97/75 L 03/07/25 15:48 Pulse Oximetry 91 03/07/25 15:48 Oxygen Delivery Room Air 03/07/25 15:27 MDM - SOB/Dyspnea MDM Narrative Medical decision making narrative: 72-year-old female presenting to the emergency department with chest tightness, dyspnea, orthopnea and edema, presentation and history of CHF, consistent with most likely CHF exacerbation vs ACS/AL, COPD exacerbation, pneumonia. IV is established and cardiac workup is initiated. Patient is given aspirin. EKG: Performed in triage and interpreted by me. Paced rhythm. Rate 70. [Normal] axis. AR 362. QRS duration 178. QTc 507. No ST segment elevation or depression to suggest acute ischemia. Chest x-ray is performed and on my independent interpretation patient does have cardiomegaly and what appears to be bilateral pleural effusions Patient is started on Bumex. Labs notable for BNP over 30,000, creatinine is 3.86 which is baseline, hemoglobin 8.6 also baseline. [The patient will be admitted for CHF exacerbation and further management.] Discussed with patient, at bedside, hospitalist for admission Lab Data 03/07/25 15:11 03/07/25 15:11 Labs: Lab Results 03/07/25 Range/Units 15:11 WBC 7.0 (4.5-10.0) K/mm3 RBC 2.70 L (4.6-6.20) M/mm3 Hgb 8.6 L (14.0-18.0) g/dL Hct 28.2 L (42.0-52.0) % MCV 104.4 H (80-100) fl MCH 31.9 (26-34) pg MCHC 30.5 L (32-36) g/dl RDW 12.8 (11.5-14.5) % Plt Count 249 (150-375) k/mm3 MPV 9.8 (7.4-10.4) fl Immature Gran % (Auto) 0.3 (0-0.5) % Neut % (Auto) 78.7 H (45.5-73.1) % Lymph % (Auto) 10.9 L (18.3-44.2) % [place] % (Auto) 9.6 H (2.6-8.5) % Eos % (Auto) 0.1 (0-4.4) % Baso % (Auto) 0.4 (0.2-1.2) % Lymph # (Auto) 0.76 L (0.9-3.2) K/mm3 [place] # (Auto) 0.7 H (0.1-0.6) K/mm3 Eos # (Auto) 0.0 (0-0.3) K/mm3 Baso # (Auto) 0.0 (0.0-0.1) K/mm3 Abs Immat Gran (auto) 0.02 (0.00-0.031) K/mm3 Absolute Neuts (auto) 5.5 (1.3-6.7) K/mm3 Absolute Nucleated RBC 0.000 (0.0-0.012) K/mm3 Nucleated RBC % 0.0 (0.0-0.2) % Sodium 136 L (137-145) mmol/L Potassium 4.7 (3.4-5.0) mmol/L Chloride 109 H (98-107) mmol/L Carbon Dioxide 17 L (22-30) mmol/L Anion Gap 10 (4-12) mmol/L BUN 80 H D (9-20) mg/dL Creatinine 3.86 H (0.7-1.3) mg/dL Estim Creat Clear Calc 12 ml/min Estimated GFR 15 L (59 - ) Glucose 112 H (65-110) mg/dL Calcium 9.3 (8.4-10.2) mg/dL Magnesium 2.2 (1.6-2.3) mg/dL Total Bilirubin 0.8 (0.2-1.3) mg/dL AST 35 (17-59) U/L ALT 32 (6-50) U/L Alkaline Phosphatase 75 (38-126) U/L NT-Pro-B Natriuret Pep > 66557 H (19.9-100) pg/mL Total Protein 7.0 (6.3-8.2) g/dL Albumin 3.9 (3.5-5.1) g/dL Discharge Plan Discharge Clinical Impression: Acute hypoxic respiratory failure, Acute exacerbation of CHF (congestive heart failure) Patient Disposition: Still a Patient Condition: Serious Patient Language: Montenegrin Prescriptions: No Action amlodipine 10 mg tablet 10 mg PO QAM gabapentin 300 mg capsule PO tamsulosin 0.4 mg Capsule 0.4 mg PO QAM Qty: 30 1RF albuterol sulfate 90 mcg/actuation HFA aerosol inhaler 2 puff INHALATION Q6H PRN (Reason: Shortness Of Breath) hydroxychloroquine 200 mg tablet 200 mg PO BID Trelegy Ellipta 100-62.5-25 mcg blister with device 1 inh INHALATION .QD montelukast 10 mg tablet 10 mg PO HS aspirin 81 mg Tablet,Delayed Release (Dr/Ec) 81 mg PO QAM Qty: 30 0RF metoprolol succinate 100 mg tablet extended release 24 hr 100 mg PO QAM simvastatin 10 mg tablet See Rx Instructions .ROUTE .COMPLEX Qty: 90 3RF Dose Instruction: TAKE 1 TABLET BY MOUTH EVERY DAY Rx Instructions: TAKE 1 TABLET BY MOUTH EVERY DAY sodium bicarbonate 650 mg tablet See Rx Instructions .ROUTE .COMPLEX Qty: 180 3RF Dose Instruction: TAKE 1 TABLET BY MOUTH TWICE A DAY Rx Instructions: TAKE 1 TABLET BY MOUTH TWICE A DAY sennosides-docusate sodium [Senokot-S] 8.6-50 mg tablet 2 tab-cap PO BID Qty: 120 2RF finasteride [Proscar] 5 mg tablet 5 mg PO QAM Qty: 90 1RF bumetanide 1 mg tablet 1 mg PO QAM Qty: 90 0RF alprazolam 0.25 mg tablet 0.25 mg PO BID PRN (Reason: anxiety) Qty: 60 0RF Rx Instructions: Tolerates this, has been on before lactulose 10 gram/15 mL solution 15 ml PO BID PRN (Reason: constipation) Qty: 1200 0RF Follow-up/Referrals: Vel Gilliam MD [Primary Care Provider] -
--- NOTE | 2025-03-07 18:01 | ADMGEN ---
This patient, Abdirizak Frank, was admitted to IMU Room 202-01 @ 1735. Patient/family oriented to hospital policies and general routines including ID bracelet, bed and alarms, visiting hours, pain management, procedures, bathroom and other care routines, personal items, smoking policy, room service/diet, and visiting hours. Information on how to activate the Rapid Response Team has been discussed. Patient/Family are encouraged to report perceived risks to care and to ask questions if they do not understand what they are told or what they should do.
--- NOTE | 2025-03-07 18:45 | PM.IMHP ---
H&P: HPI History of Present Illness Date/Time: 03/07/25 18:45 Chief Complaint: Shortness of Breath Narrative: 84 y/o M with PMH of prostate cancer, rheumatoid arthritis, four-point deficiency anemia, peripheral artery disease, Sjogren's syndrome, bilateral carotid artery stenosis, SLE, ARTURO, hypertension, and CKD presents here with shortness of breath. The patient presents here from home for further evaluation of shortness of breath on 03/07. He initially sought care with his PCP (Tawana ENCARNACION) today. He reports the shortness of breath has been ongoing for the past week and is accompanied by a cough that has been intermittently productive. He denies fever, chills, body aches, chest pain, palpitations, or urinary symptoms. He has a history of congestive heart failure and is currently on Bumex 1 mg daily. Reports compliance. Reports 6 lbs of weight gain in a week, no reported lower extemity swelling. Initial VS at presentation: 97.5? F, HR 70, R 25, 111/89, and 94% on RA. ED workup showed: No leukocytosis, hemoglobin 8.6 (at baseline), for sodium 136, creatinine 3.86 and GFR 15 (previously 4.63 and GFR 12 4/30), and BNP >30,000. CXR showed mild interstitial edema with bilateral pleural effusions. EKG showed electronic atrial pacemaker, electronic ventricular pacemaker. Review of Systems Review of Systems: All systems reviewed & are unremarkable except as noted in HPI and below PMFSH Past Medical History Medical History CHF (congestive heart failure) Dr Fowler Prostate cancer Managed by Dr. Elizalde Recurrent inguinal hernia without obstruction or gangrene Renal mass, right Rheumatoid arthritis History of prostate cancer Overactive bladder COPD exacerbation Screening for thyroid disorder COVID Persistent cough Encounter to establish care Orthostasis Erythropoietin deficiency anemia Rectus diastasis Peripheral artery disease With moderately decreased ABIs bilaterally December 2011 Monoclonal gammopathy Near syncope Sjogrens syndrome Spinal stenosis at L4-L5 level Bilateral carotid artery stenosis 50 to 69% stenosis on the right and greater than 70% stenosis on the left Lupus (systemic lupus erythematosus) Obstructive sleep apnea With nasal CPAP use Essential hypertension CKD (chronic kidney disease) Stage III managed by Dr. Quintin Downey Surgical History Surgical History History of prostate surgery H/O bilateral inguinal hernia repair pen reccurent RI and open L ing. hernia rep w/ mesh 03/12/24 S/P bilateral inguinal hernia repair History of permanent cardiac pacemaker placement 2021 Hx of left inguinal hernia repair 2016, repair of mesh failure History of right inguinal hernia repair 2016, previous repair of mesh failure History of total bilateral knee replacement With the right knee being replaced once in the left knee being replaced 3 times with chronic left knee pain Family History Family History Mother Cirrhosis Sibling Esophageal cancer Father Acute myocardial infarction Lung disease Heart disease Sibling Esophageal cancer Skin cancer Social History Social History Social History: Patient continues to smoke half a pack a day. Denies drug use. No alcohol use. Lives at home with his and daughter. 3 dogs. Patient smoked half a pack a day (stopped 1 month ago). Denies drug use. No alcohol use. Code status: Full code Healthcare power of mergers and acquisitions attorney: Linda Frank () Smoking packs per day: 0.5 Smoking cigarettes per day: 10.0 Years smoked: 65 Smoking pack-years: 32.50 Smoking status: Current every day smoker Tobacco type: cigarettes Second hand tobacco smoke exposure: No Smoking end date: 06/24/24 Additional smoking assessment comments: SMOKING 0.5 PACK/DAY Alcohol intake: never Substance use: never Substance use type: does not use Do You Feel Safe in your Home?: Yes Lack of Transportation: No Lack of Food: Never True Current Housing: I Have Housing Concerned About Future Housing: No Difficulty Paying Gas/Electric Bills: No Difficulty Paying for Meds: No Currently Unemployed: No Education: High School Diploma/GED Difficulty w/ Childcare or Family Care: No Living arrangements: with family Additional living arrangements comments: and daughter 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 100 mcg-umeclid 1 inh inhalation .QD 12/22/23 03/07/25 History 62.5 mcg-vilant 25 mcg inhalat.powder (Trelegy Ellipta) metoprolol succinate 100 mg 100 mg PO QAM 01/04/24 03/07/25 History tablet,extended release 24 hr montelukast 10 mg tablet 10 mg PO HS 02/29/24 03/07/25 History tamsulosin 0.4 mg capsule 0.4 mg PO QAM #30 caps 05/26/24 03/07/25 Rx aspirin 81 mg tablet,delayed 81 mg PO QAM #30 tabs 06/12/24 03/07/25 Rx release albuterol sulfate 90 mcg/actuation 2 puff inhalation Q6H PRN 08/12/24 03/07/25 History aerosol inhaler Shortness Of Breath gabapentin 300 mg capsule 300 mg PO BID 09/11/24 03/07/25 History simvastatin 10 mg tablet See Rx Instructions .Route 09/11/24 03/07/25 Rx .COMPLEX #90 tabs sodium bicarbonate 650 mg tablet See Rx Instructions .Route 11/12/24 03/07/25 Rx .COMPLEX #180 tabs sennosides 8.6 mg-docusate sodium 2 tab-cap (2 x 8.6-50 mg) PO BID 11/14/24 03/07/25 Rx 50 mg tablet (Senokot-S) constipation #120 tabs finasteride 5 mg tablet (Proscar) 5 mg PO QAM #90 tabs 11/15/24 03/07/25 Rx bumetanide 1 mg tablet 1 mg PO QAM #90 tabs 02/25/25 03/07/25 Rx alprazolam 0.25 mg tablet 0.25 mg PO BID PRN anxiety #60 tabs 02/26/25 03/07/25 Rx lactulose 10 gram/15 mL oral 15 ml PO BID PRN constipation 03/05/25 03/07/25 Rx solution #1,200 mL Allergies Allergy/AdvReac Type Severity Reaction Status Date / Time clonazepam AdvReac Mild Nightmare Verified 03/07/25 18:14 Vital Signs Vital Signs - 24 hr 03/07/25 15:00 03/07/25 15:15 03/07/25 15:19 Temperature 97.5 F L Pulse Rate 70 70 86 Respiratory Rate 25 H 20 Blood Pressure 111/89 111/89 Pulse Oximetry 94 Oxygen Delivery 03/07/25 15:27 03/07/25 15:48 03/07/25 17:10 Temperature Pulse Rate 70 71 Respiratory Rate 18 19 Blood Pressure 97/75 L 123/81 Pulse Oximetry 94 91 93 Oxygen Delivery Room Air 03/07/25 17:30 03/07/25 17:47 Temperature 97.6 F Pulse Rate 71 70 Respiratory Rate 19 22 H Blood Pressure 123/81 111/73 Pulse Oximetry 93 99 Oxygen Delivery Exam Const: General: comfortable and no acute distress Other: , male, elderly, nontoxic appearance HENMT: Face/Nose/Sinus: Normal nares present Mouth: Yes moist mucous membranes Eyes: General: appearance normal, both eyes and all related structures Sclera: sclerae normal Pupils: Equal, round and reactive pupils present EOM: EOMs intact bilaterally Resp: Other: Mild conversational dyspnea. Minimal bibasilar crackles. No wheezing. Cardio: Rate: regular rate Rhythm: regular rhythm Other: S1-S2 present without murmur, rub, ectopy GI: Other: Abdomen soft, nondistended, nontender. Normoactive bowel sounds in all quadrants. Skin: General skin exam: normal color and no rashes or lesions noted Wounds: no wounds Neuro: Speech: normal speech Motor exam (neuro): 5/5 motor strength present throughout Sensory Exam: normal sensation Other: A&O x4 Extrem: General: normal to inspection Psych: Mental Status: mental status grossly normal Affect: normal affect Other: Good insight and judgment, pleasant H&P: Results Labs Labs: Short CBC 03/07/25 Range/Units 15:11 WBC 7.0 (4.5-10.0) K/mm3 Hgb 8.6 L (14.0-18.0) g/dL Hct 28.2 L (42.0-52.0) % Plt Count 249 (150-375) k/mm3 BMP 03/07/25 15:11 Sodium 136 L Potassium 4.7 Chloride 109 H Carbon Dioxide 17 L BUN 80 H D Creatinine 3.86 H Glucose 112 H Calcium 9.3 Liver Function 03/07/25 Range/Units 15:11 Total Bilirubin 0.8 (0.2-1.3) mg/dL AST 35 (17-59) U/L ALT 32 (6-50) U/L Alkaline Phosphatase 75 (38-126) U/L Albumin 3.9 (3.5-5.1) g/dL Assessment and Plan Assessment and plan (1) Acute exacerbation of CHF (congestive heart failure): Qualifiers: Heart failure type: systolic Qualified Code(s): I50.23 - Acute on chronic systolic (congestive) heart failure Code(s): I50.9 - Heart failure, unspecified Status: Acute Assessment and Plan: - BNP >30,000 - most recent echo (05/2024): LV systolic function mildly globally reduced, estimated EF 45-50%, diastolic function is normal. See report for full details. - currently on: Bumex 1 mg daily, will continue as Bumex 1 mg IV b.i.d. - monitor I&Os and daily weights - trend renal function (2) CKD (chronic kidney disease): Qualifiers: Chronic kidney disease stage: unspecified stage Qualified Code(s): N18.9 - Chronic kidney disease, unspecified Code(s): N18.9 - Chronic kidney disease, unspecified Status: Chronic Assessment and Plan: - creatinine 3.86 and GFR 15, previously 4.63 and GFR 12 02/20 - trend renal function - trend electrolytes, correct as needed (3) COPD (chronic obstructive pulmonary disease): Qualifiers: COPD type: COPD with acute exacerbation Qualified Code(s): J44.1 - Chronic obstructive pulmonary disease with (acute) exacerbation Code(s): J44.9 - Chronic obstructive pulmonary disease, unspecified Status: Chronic Assessment and Plan: - DuoNebs p.r.n. - continue Trelegy (4) Erythropoietin deficiency anemia: Code(s): D63.1 - Anemia in chronic kidney disease Status: Acute Assessment and Plan: - Hgb 8.6, previously 9.7 on 02/20 - transfuse if <7 - monitor (5) Essential (primary) hypertension: Code(s): I10 - Essential (primary) hypertension Status: Acute Assessment and Plan: - chronic, currently 111/73 - continue home medications: Amlodipine, Metoprolol - monitor (6) Obstructive sleep apnea: Code(s): G47.33 - Obstructive sleep apnea (adult) (pediatric) Status: Chronic Assessment and Plan: - continue home CPAP Plan Diet: Heart healthy GI Prophylaxis: Not currently indicated DVT Prophylaxis: SCDs IV fluids: None Lines/Tubes: Peripheral IV Code Status: Full code Quality VTE Prophylaxis VTE prophylaxis: mechanical ordered Hospitalist MIPS Advance Care Plan I have confirmed that the patient's Advanced Care Plan is present, code status is documented, or surrogate decision maker is listed in patient medical record.: Yes Medication Reconciliation I have utilized all available resources to obtain, update and review the patients current medications (includes all prescriptions, OTC, herbals, cannabis, and nutritional supplements).: Yes
[2025-03-07 20:15] LABS: MRSA (PCR) NOT DETECTED (NOT DETECTE)
[2025-03-07] MEDS: MONTELUKAST SODIUM 10 MG TABLET PO (20:30)
[2025-03-07] MEDS: amLODIPine BESYLATE 10 MG TABLET PO (20:30)
[2025-03-07] MEDS: SODIUM BICARBONATE TAB 650 MG TABLET PO (20:30)
[2025-03-08] VITALS (15 sets, daily range): BP systolic 127–156; BP diastolic 63–70; PULSE 69–80; RESP 18–22; TEMP 36.4–37; O2SAT 93–98
--- NOTE | 2025-03-08 | ECHO_ITS ---
Patient Info Name: Abdirizak Frank Age: 84 years : 1940 Gender: Male Ht: 65 in Wt: 163 lbs BSA: 1.86 m2 HR: 70 bpm BP: 156 / 64 mmHg Heart Rhythm: Sinus Rhythm Technical Quality: Good Exam Date: 03/08/2025 11:01 AM Patient Status: I Admit Date: 03/07/2025 Exam Type: CA echo doppler color flow Complete two-dimensional, color flow and Doppler transthoracic echocardiogram is performed. Staff Referring Physician: Issa Henry MD Outreach Specialist: Rosalinda Orozco Attending Provider: Rita Allen Summary 1. Complete two-dimensional, color flow and Doppler transthoracic echocardiogram is performed. 2. Left ventricular chamber dimension is severely enlarged. 3. Left ventricular systolic function is severely globally reduced, estimated at 30-35. 4. There is moderate concentric increased left ventricular wall thickness. 5. The left ventricular diastolic function is abnormal. 6. E/e' 23 is elevated. 7. Right ventricular systolic function is reduced. 8. Linear artifact in right ventricle suggestive of catheter(s), pacemaker lead(s), or ICD lead(s). 9. Left atrial chamber dimension is severely enlarged. 10. Right atrial chamber dimension is moderately enlarged. 11. Linear artifact in the right atrium suggestive of catheter(s), pacemaker lead(s), or ICD lead(s). 12. There is moderate aortic valve sclerosis. 13. There is mild aortic valve regurgitation. 14. The mitral valve has a moderately calcified annulus. 15. There is moderate to severe mitral valve regurgitation. 16. There is moderate tricuspid valve regurgitation. 17. Moderate pulmonary hypertension, estimated pulmonary arterial systolic pressure is 51 mmHg. 18. Dilated inferior vena cava with >50% collapse upon inspiration consistent with elevated right atrial pressure, 10 mmHg. Left Ventricle E/e' 23 is elevated. Left ventricular chamber dimension is severely enlarged. Left ventricular systolic function is severely globally reduced, estimated at 30-35. There is moderate concentric increased left ventricular wall thickness. The left ventricular diastolic function is abnormal. Right Ventricle Linear artifact in right ventricle suggestive of catheter(s), pacemaker lead(s), or ICD lead(s). Right ventricular chamber dimension is normal. Right ventricular systolic function is reduced. Left Atria Left atrial chamber dimension is severely enlarged. Right Atria Linear artifact in the right atrium suggestive of catheter(s), pacemaker lead(s), or ICD lead(s). Right atrial chamber dimension is moderately enlarged. Aortic Valve The aortic valve is trileaflet. There is moderate aortic valve sclerosis. There is no aortic valve stenosis. There is mild aortic valve regurgitation. Pulmonic Valve There is no pulmonic regurgitation. Mitral Valve The mitral valve has a moderately calcified annulus. There is no mitral valve stenosis. There is moderate to severe mitral valve regurgitation. Tricuspid Valve There is moderate tricuspid valve regurgitation. Moderate pulmonary hypertension, estimated pulmonary arterial systolic pressure is 51 mmHg. Pericardium/Pleural There is no pericardial effusion. Inferior Vena Cava Dilated inferior vena cava with >50% collapse upon inspiration consistent with elevated right atrial pressure, 10 mmHg. Aorta The aortic root size at the sinus of Valsalva is normal. Left Ventricular Outflow Tract Name Value Normal LVOT 2D LVOT Diameter 2.0 cm LVOT Doppler LVOT Peak Velocity 118 cm/s LVOT Peak Gradient 5 mmHg LVOT Mean Gradient 2 mmHg LVOT VTI 23 cm LVOT VTI/AV VTI Ratio 0.8 LVOT Stroke Volume 73 ml LVOT CO 4.6 l/min LVOT CI 2.5 l/min/m2 Pulmonic Valve Name Value Normal RVOT Doppler RVOT Peak Velocity 105 cm/s RVOT Peak Gradient 4 mmHg PV Doppler PV Peak Velocity 121 cm/s PV Peak Gradient 6 mmHg Mitral Valve Name Value Normal MV Doppler MV Peak Gradient 8 mmHg MV Mean Gradient 3 mmHg MV Area (Cont Eq VTI) 2.7 cm2 MV Regurgitation Doppler MR Peak Gradient 83 mmHg MV Diastolic Function MV E Peak Velocity 108 cm/s MV A Peak Velocity 113 cm/s MV E/A 1.0 MV Decel Time (PW) 130 ms MV Annular TDI MV E/e' (Septal) 41.5 MV E/e' (Lateral) 16.2 MV E/e' (Average) 28.9 Tricuspid Valve Name Value Normal TV Regurgitation Doppler TR Peak Velocity 319 cm/s TR Peak Gradient 41 mmHg Estimated PAP/RSVP RA Pressure 10 mmHg <=5 PA Systolic Pressure 51 mmHg <36 RV Systolic Pressure 51 mmHg <36 TV Annular TDI TV Lateral Gina s' Velocity 6.7 cm/s >=9.5 Aortic Valve Name Value Normal AV Doppler AV Peak Velocity 156 cm/s AV Peak Gradient 10 mmHg AV Mean Gradient 4 mmHg AV VTI 29 cm AV Area (Cont Eq VTI) 2.5 cm2 >=3.0 AV Area (Cont Eq Delfino) 2.4 cm2 AV DI (Delfino) 0.75 AV Regurgitation 2D LVOT Area 3.1 cm2 Ventricles Name Value Normal LV Dimensions 2D/MM IVS Diastolic Thickness (2D) 1.9 cm 0.6-1.0 LVID Diastole (2D) 4.4 cm 4.2-5.8 LVIW Diastolic Thickness (2D) 1.2 cm 0.6-1.0 LVID Systole (2D) 3.4 cm 2.5-4.0 LVOT Diameter 2.0 cm LV Mass (2D Cubed) 291.61 g 88.00-224.00 LV Mass Index (2D Cubed) 157 g/m2 49-115 Relative Wall Thickness (2D) 0.54 <=0.42 LV Fractional Shortening/Ejection Fraction 2D/MM LV Fractional Shortening (2D) 23 % 25-43 LV EF (2D Teichholz) 47 % LV Diastolic Volume (4C MOD) 263 ml LV EF (4C MOD) 45 % LV Diastolic Volume (2C MOD) 205 ml LV EF (2C MOD) 29 % LV Diastolic Volume (BP MOD) 243 ml 62-150 LV Diastolic Volume Index (BP MOD) 131 ml/m2 34-74 LV Systolic Volume (BP MOD) 149 ml 21-61 LV Systolic Volume Index (BP MOD) 80 ml/m2 11-31 LV EF (BP MOD) 39 % 52-72 LV Diastolic Length (4C) 9.6 cm LV Systolic Length (4C) 8.5 cm LV Stroke Volume (4C MOD) 118 ml Atria Name Value Normal LA Dimensions LA Volume (4C A-L) 169 ml LA Volume (BP A-L) 155 ml RA Dimensions RA Systolic Major Flushing Length (4C) 5.4 cm 2.1-2.7 RA Area (4C) 23.1 cm2 <=18.0 Report Signatures
[2025-03-08 04:38] LABS: Basophils Percent Auto 0.2 % (0.2-1.2); Eosinophils Percent Auto 0.4 % (0-4.4); Hematocrit 24.8 % (42.0-52.0); Immature Granulocyte Absolute 0.02 K/mm3 (0.00-0.031); Immature Granulocyte Percent A 0.4 % (0-0.5); Lymphocytes Absolute Auto 0.82 K/mm3 (0.9-3.2); Lymphocytes Percent Auto 14.4 % (18.3-44.2); Mean Corpuscular HGB Conc 32.3 g/dl (32-36); Mean Corpuscular Hemoglobin 32.5 pg (26-34); Mean Corpuscular Volume 100.8 fl (80-100); Mean Platelet Volume 9.8 fl (7.4-10.4); Monocytes Absolute Auto 0.8 K/mm3 (0.1-0.6); Monocytes Percent Auto 14.2 % (2.6-8.5); Neutrophils Percent Auto 70.4 % (45.5-73.1); Platelet Count Result 221 k/mm3 (150-375); Red Blood Count 2.46 M/mm3 (4.6-6.20); Red Cell Distribution Width 12.6 % (11.5-14.5); White Blood Count 5.7 K/mm3 (4.5-10.0)
[2025-03-08 04:48] LABS: Alanine Aminotransferase 27 U/L (6-50); Albumin Level 3.4 g/dL (3.5-5.1); Alkaline Phosphatase 67 U/L (38-126); Anion Gap 12 mmol/L (4-12); Aspartate Amino Transferase 31 U/L (17-59); Bilirubin,Total 0.7 mg/dL (0.2-1.3); Blood Urea Nitrogen 81 mg/dL (9-20); Calcium 9.1 mg/dL (8.4-10.2); Carbon Dioxide 16 mmol/L (22-30); Chloride 110 mmol/L (98-107); Estimated CRCL calculation 11 ml/min; Estimated Glomerular Filt Rate 14; Glucose 80 mg/dL (65-110); Potassium 4.7 mmol/L (3.4-5.0); Sodium 138 mmol/L (137-145)
--- NOTE | 2025-03-08 08:00 | P.PNIM_ITS ---
Progress Note: A&P Assessment and Plan (1) Acute exacerbation of CHF (congestive heart failure): Qualifiers: Heart failure type: systolic Qualified Code(s): I50.23 - Acute on chronic systolic (congestive) heart failure Code(s): I50.9 - Heart failure, unspecified Status: Acute Assessment and Plan: - BNP >30,000 - most recent echo (05/2024): LV systolic function mildly globally reduced, estimated EF 45-50%, diastolic function is normal. See report for full details. - currently on: Bumex 1 mg daily, will continue as Bumex 1 mg IV b.i.d. - monitor I&Os and daily weights - trend renal function recheck echo was hypoxic in the pcp office needing oxygen supplementation (2) CKD (chronic kidney disease): Qualifiers: Chronic kidney disease stage: unspecified stage Qualified Code(s): N18.9 - Chronic kidney disease, unspecified Code(s): N18.9 - Chronic kidney disease, unspecified Status: Chronic Assessment and Plan: - creatinine 3.86 and GFR 15, previously 4.63 and GFR 12 02/20 - trend renal function - trend electrolytes, correct as needed fistula in right arm placed 3 weeks ago renal consultation (3) COPD (chronic obstructive pulmonary disease): Qualifiers: COPD type: COPD with acute exacerbation Qualified Code(s): J44.1 - Chronic obstructive pulmonary disease with (acute) exacerbation Code(s): J44.9 - Chronic obstructive pulmonary disease, unspecified Status: Chronic Assessment and Plan: - DuoNebs p.r.n. - continue Trelegy add mucinex (4) Erythropoietin deficiency anemia: Code(s): D63.1 - Anemia in chronic kidney disease Status: Acute Assessment and Plan: - Hgb 8.6, previously 9.7 on 02/20 - transfuse if <7 - monitor (5) Essential (primary) hypertension: Code(s): I10 - Essential (primary) hypertension Status: Acute Assessment and Plan: - chronic, currently 111/73 - continue home medications: Amlodipine, Metoprolol - monitor (6) Obstructive sleep apnea: Code(s): G47.33 - Obstructive sleep apnea (adult) (pediatric) Status: Chronic Assessment and Plan: - continue home CPAP (7) Acute hypoxic respiratory failure: Code(s): J96.01 - Acute respiratory failure with hypoxia Status: Acute Assessment and Plan: needing oxygen supplementation 6l in the pcp office currentlyl at 2l cotninue to monitor Plan Diet: Heart healthy GI Prophylaxis: Not currently indicated DVT Prophylaxis: SCDs IV fluids: None Lines/Tubes: Peripheral IV Code Status: Full code Subjective Date/time seen: 03/08/25 08:00 Interval history: HPI: 84 y/o M with PMH of prostate cancer, rheumatoid arthritis, four-point deficiency anemia, peripheral artery disease, Sjogren's syndrome, bilateral carotid artery stenosis, SLE, ARTURO, hypertension, and CKD presents here with shortness of breath. The patient presents here from home for further evaluation of shortness of breath on 03/07. He initially sought care with his PCP (Tawana ENCARNACION) today. He reports the shortness of breath has been ongoing for the past week and is accompanied by a cough that has been intermittently productive. He denies fever, chills, body aches, chest pain, palpitations, or urinary symptoms. He has a history of congestive heart failure and is currently on Bumex 1 mg daily. Reports compliance. Reports 6 lbs of weight gain in a week, no reported lower extemity swelling. Initial VS at presentation: 97.5? F, HR 70, R 25, 111/89, and 94% on RA. ED workup showed: No leukocytosis, hemoglobin 8.6 (at baseline), for sodium 136, creatinine 3.86 and GFR 15 (previously 4.63 and GFR 12 4/30), and BNP >30,000. CXR showed mild interstitial edema with bilateral pleural effusions. EKG showed electronic atrial pacemaker, electronic ventricular pacemaker. 03/08/2025: no overnight events, making him pee more. he remains on 2l oxygen. used cpap at night. no fever, chills. still smokes and has some dry cough. Review of Systems Review of Systems: All systems reviewed & are unremarkable except as noted in HPI and below Exam Narrative: GENERAL: The patient is well developed, not in acute distress HEENT: Nonicteric sclerae, PERRLA, EOMI. Oropharynx clear. Moist mucous membranes. Conjunctivae appear well perfused. CHEST: Chest wall is nontender. HEART: Regular rate and rhythm without murmur, rubs, or gallops LUNGS: Coarse breath sounds bilaterally, no wheezes, no respiratory distress ABDOMEN: Soft, positive bowel sounds, non-tender, no organomegaly. SKIN: No rash, no excessive bruising, petechiae, or purpura. NEUROLOGIC: Cranial nerves II-XII intact, alert and oriented x 3, no gross motor deficits EXTREMITIES: no edema, cyanosis or clubbing Objective Data Vital Signs Vital Signs: Vital Signs - 24 hr 03/07/25 15:00 03/07/25 15:15 03/07/25 15:19 Temperature 97.5 F L Pulse Rate 70 70 86 Respiratory Rate 25 H 20 Blood Pressure 111/89 111/89 Pulse Oximetry 94 Oxygen Delivery Fraction of Inspired Oxygen 03/07/25 15:27 03/07/25 15:48 03/07/25 17:10 Temperature Pulse Rate 70 71 Respiratory Rate 18 19 Blood Pressure 97/75 L 123/81 Pulse Oximetry 94 91 93 Oxygen Delivery Room Air Fraction of Inspired Oxygen 03/07/25 17:30 03/07/25 17:47 03/07/25 18:00 Temperature 97.6 F Pulse Rate 71 70 70 Respiratory Rate 19 22 H Blood Pressure 123/81 111/73 Pulse Oximetry 93 99 Oxygen Delivery Fraction of Inspired Oxygen 03/07/25 19:45 03/07/25 19:45 03/07/25 20:00 Temperature 97.9 F Pulse Rate 70 70 Respiratory Rate 22 H Blood Pressure 159/59 H Pulse Oximetry 96 99 Oxygen Delivery CPAP Room Air Fraction of Inspired Oxygen 21 03/07/25 20:00 03/07/25 20:00 03/07/25 22:00 Temperature Pulse Rate 71 71 70 Respiratory Rate 22 H Blood Pressure Pulse Oximetry 99 Oxygen Delivery Room Air Fraction of Inspired Oxygen 03/07/25 23:11 03/07/25 23:15 03/08/25 00:00 Temperature 97.9 F Pulse Rate 70 70 Respiratory Rate 22 H 22 H Blood Pressure 162/58 H Pulse Oximetry 96 96 Oxygen Delivery CPAP Room Air Fraction of Inspired Oxygen 03/08/25 00:00 03/08/25 02:00 03/08/25 04:00 Temperature 97.8 F Pulse Rate 70 70 79 Respiratory Rate 22 H Blood Pressure 156/64 H Pulse Oximetry 97 Oxygen Delivery Fraction of Inspired Oxygen 03/08/25 04:00 03/08/25 04:00 03/08/25 05:45 Temperature Pulse Rate 70 70 70 Respiratory Rate 22 H Blood Pressure Pulse Oximetry 97 Oxygen Delivery Room Air Fraction of Inspired Oxygen 21 Intake/Output Intake/Output: Intake & Output 03/05/25 03/06/25 03/07/25 03/08/25 23:59 23:59 23:59 23:59 Intake Total 150 Output Total 250 300 Balance -250 -150 Meds/Results Medications: Active Medications Generic Name Dose Route Start Last Admin Trade Name Freq PRN Reason Stop Dose Admin Alprazolam 0.25 mg 03/07/25 19:41 Alprazolam (*Crx) 0.25 Mg Tablet PO BID PRN anxiety Amlodipine Besylate 10 mg 03/07/25 21:00 03/07/25 20:30 Amlodipine Besylate 10 Mg Tablet PO 10 mg Q12HR NICOLLE Administration Aspirin 81 mg 03/08/25 09:00 Aspirin 81 Mg Enteric Tablet PO QAM [facility] Bumetanide 1 mg 03/08/25 09:00 Bumetanide Inj 1 Mg/4 Ml Vial IV PUSH BID [facility] Finasteride 5 mg 03/08/25 09:00 Finasteride 5 Mg Tablet PO QAM [facility] Fluticasone/Umeclidinium/Vilanterol 1 puff 03/08/25 08:00 Fluticasone/Umeclidin/Vilanter 100-62.5-25 Mcg Ellipta INHALATION DAILYRT [facility] Gabapentin 300 mg 03/08/25 09:00 Gabapentin 300 Mg Capsule PO BID [facility] Hydroxychloroquine Sulfate 200 mg 03/08/25 09:00 Hydroxychloroquine Sulfate 200 Mg Tablet PO DAILY [facility] Lactulose 10 gm 03/07/25 19:41 Lactulose 20 Gm/30 Ml Udc PO BID PRN constipation Metoprolol Succinate 100 mg 03/08/25 09:00 Metoprolol Succinate Ext Rel 100 Mg Tabcr PO QAM [facility] Montelukast Sodium 10 mg 03/07/25 21:00 03/07/25 20:30 Montelukast Sodium 10 Mg Tablet PO 10 mg HS NICOLLE Administration Perflutren Lipid Microsphere 0 ml 03/07/25 19:41 Perflutren Lipid Microspheres 1.5 Ml Vial Diluted To 10 Ml Total Volume IV PUSH 03/10/25 19:41 ONCE PRN adequate visualization Protocol Senna/Docusate Sodium 2 tab 03/08/25 09:00 Senna/Docusate Sodium Tablet PO BID NICOLLE Simvastatin 10 mg 03/08/25 09:00 Simvastatin 10 Mg Tablet PO DAILY [facility] Sodium Bicarbonate 650 mg 03/07/25 21:00 03/07/25 20:30 Sodium Bicarbonate Tab 650 Mg Tablet PO 650 mg Q12HR [facility] Administration Tamsulosin HCl 0.4 mg 03/08/25 09:00 Tamsulosin Hcl 0.4 Mg Capsule PO QAM [facility] Radiology Results: ITS Impressions Chest X-Ray 03/07/25 15:25 Impression: 1: Mild interstitial edema with bilateral pleural effusions. Labs Labs: Laboratory Results - last 24 hr 03/07/25 03/07/25 03/08/25 15:11 18:46 04:16 WBC 7.0 5.7 RBC 2.70 L 2.46 L Hgb 8.6 L 8.0 L Hct 28.2 L 24.8 L MCV 104.4 H 100.8 H MCH 31.9 32.5 MCHC 30.5 L 32.3 RDW 12.8 12.6 Plt Count 249 221 MPV 9.8 9.8 Immature Gran % (Auto) 0.3 0.4 Neut % (Auto) 78.7 H 70.4 Lymph % (Auto) 10.9 L 14.4 L Gibson % (Auto) 9.6 H 14.2 H Eos % (Auto) 0.1 0.4 Baso % (Auto) 0.4 0.2 Lymph # (Auto) 0.76 L 0.82 L Gibson # (Auto) 0.7 H 0.8 H Eos # (Auto) 0.0 0.0 Baso # (Auto) 0.0 0.0 Abs Immat Gran (auto) 0.02 0.02 Absolute Neuts (auto) 5.5 4.0 Absolute Nucleated RBC 0.000 0.000 Nucleated RBC % 0.0 0.0 Sodium 136 L 138 Potassium 4.7 4.7 Chloride 109 H 110 H Carbon Dioxide 17 L 16 L Anion Gap 10 12 BUN 80 H D 81 H Creatinine 3.86 H 4.07 H Estim Creat Clear Calc 12 11 Estimated GFR 15 L 14 L Glucose 112 H 80 Calcium 9.3 9.1 Magnesium 2.2 Total Bilirubin 0.8 0.7 AST 35 31 ALT 32 27 Alkaline Phosphatase 75 67 NT-Pro-B Natriuret Pep > 91192 H Total Protein 7.0 6.0 L Albumin 3.9 3.4 L Nasal MRSA (PCR) Not detected
[2025-03-08] MEDS: amLODIPine BESYLATE 10 MG TABLET PO ×2 (09:27→20:02)
[2025-03-08] MEDS: TAMSULOSIN HCL 0.4 MG CAPSULE PO (09:27)
[2025-03-08] MEDS: FLUTICASONE/UMECLIDIN/VILANTER 100-62.5-25 MCG ELLIPTA 1 PUFF INHALATION (09:27)
[2025-03-08] MEDS: ASPIRIN 81 MG ENTERIC TABLET PO (09:27)
[2025-03-08] MEDS: SENNA/DOCUSATE SODIUM TABLET 2 TAB PO ×2 (09:27→16:34)
[2025-03-08] MEDS: GABAPENTIN 300 MG CAPSULE PO ×2 (09:28→16:34)
[2025-03-08] MEDS: SIMVASTATIN 10 MG TABLET PO (09:28)
[2025-03-08] MEDS: guaiFENesin 12 HR 600 MG TABCR PO ×2 (09:28→20:01)
[2025-03-08] MEDS: SODIUM BICARBONATE TAB 650 MG TABLET PO ×2 (09:28→20:02)
[2025-03-08] MEDS: METOPROLOL SUCCINATE EXT REL 100 MG TABCR PO (09:28)
[2025-03-08] MEDS: HYDROXYCHLOROQUINE SULFATE 200 MG TABLET PO (09:28)
[2025-03-08] MEDS: FINASTERIDE 5 MG TABLET PO (09:28)
[2025-03-08] MEDS: BUMETANIDE INJ 1 MG/4 ML VIAL IV PUSH ×3 (09:29→20:01)
[2025-03-08] MEDS: ALPRAZolam (*CRX) 0.25 MG TABLET PO ×2 (09:43→20:01)
--- NOTE | 2025-03-08 12:10 | P.CONNP_ITS ---
Assessment and Plan Assessment and plan (1) Stage 4 chronic kidney disease: Code(s): N18.4 - Chronic kidney disease, stage 4 (severe) Status: Chronic Assessment and Plan: * baseline creatinine running around 3.6 - 4.0mg/dl in 6 - 8 months * however, has been as high as 4.6mg/dl (late January 2025) * this causes him to bounce between CKD stage 4 and stage 5 * due to biopsy proven hypertensive nephrosclerosis with recent contributions from his heart failure and associated diuretic use * unfortunately, his worsening volume status and need for diuretics will like cause his renal function/creatinine to fluctuate further... * given his progressive decline in renal function/kidney disease, he attended dialysis education and has decided on in-center hemodialysis when the time comes * s/p AVF placement by Dr. Jordan ~ 3 weeks ago (on 02/05/25) * follow trend of repeat labs and UOP (2) Acute hypoxic respiratory failure: Code(s): J96.01 - Acute respiratory failure with hypoxia Status: Acute Assessment and Plan: * as noted at PCP's office prior to presentation ER * supplemental oxygen weaned down to baseline (@L) * multifactorial: * CHF exacerbation * volume/fluid overload * valvular heart disease * known history of COPD * underlying ARTURO * relative anemia * other(?) * continue current therapy (3) Acute exacerbation of CHF (congestive heart failure): Qualifiers: Heart failure type: systolic Qualified Code(s): I50.23 - Acute on chronic systolic (congestive) heart failure Code(s): I50.9 - Heart failure, unspecified Status: Acute Assessment and Plan: * as suggested by history and exam * BNP >30,000 * admission CXR with mild interstitial edema with bilateral pleural effusions * repeat Echo on 03/08 noted (with worsened EF and valvular disease noted): * left ventricular systolic function is severely globally reduced, estimated at 30-35% * left ventricular diastolic function is abnormal * right ventricular systolic function is reduced * moderate aortic valve sclerosis * mild aortic valve regurgitation * mitral valve has a moderately calcified annulus * moderate to severe mitral valve regurgitation * moderate tricuspid valve regurgitation * moderate pulmonary hypertension, estimated pulmonary arterial systolic pressure is 51 mmHg * continue IV bumex bid for now * monitor I&Os and daily weights (4) Metabolic acidosis: Code(s): E87.20 - Acidosis, unspecified Status: Chronic Assessment and Plan: * due to advanced CKD * attempting to compensate with oral sodium bicarbonate * follow trend of CO2 levels (5) Anemia: Qualifiers: Anemia type: unspecified type Qualified Code(s): D64.9 - Anemia, unspecified Code(s): D64.9 - Anemia, unspecified Status: Chronic Assessment and Plan: * due to CKD and known history of MGUS * check anemia studies * empiric Epogen while hospitalized * follows with Dr. Epstein (Hematology) (6) Essential (primary) hypertension: Code(s): I10 - Essential (primary) hypertension Status: Chronic Assessment and Plan: * reasonable control * follow trend of hemodynamics (7) Obstructive sleep apnea: Code(s): G47.33 - Obstructive sleep apnea (adult) (pediatric) Status: Chronic Assessment and Plan: * continue home CPAP (8) Generalized weakness: Code(s): R53.1 - Weakness Status: Acute Assessment and Plan: * suspect due to acute medical issues as noted above * PT/OT as tolerated Long and extensive discussion (> 20 minutes) with the patient and his at bedside regarding his advanced kidney disease/renal dysfunction in conjunction with evidence of volume overload, hypoxia, mild metabolic acidosis, and anemia and my concerns that he may need renal replacement therapy/dialysis sooner than later if he fails to respond to conservative therapy that has been instituted. He and his appeared to voiced understanding. I will continue to follow the patient with you while he remains hospitalized and make further recommendations as deemed necessary. Thank you for allowing me to participate in the care of this patient. L History of Present Illness Reason for Consult Consult date: 03/08/25 Reason for consult: chronic renal failure Chief Complaint Chief complaint: CHF Exac History of Present Illness Narrative: The patient is an 84-year-old male with an extensive past medical history as outlined below who presented to [facility] due to complaints of shortness of breath. The patient reports that he has been having shortness of breath for the past week to 10 days in association with a intermittently productive cough. This is further complicated by weight gain of about 6 7 lb although he denies any increase in his lower extremity swelling/edema. Due to the shortness of breath, he is unable to ambulate as well as he normally does and has been having difficulty doing his activities of daily living. He saw his primary care physician on the day of admission for further evaluation of these symptoms. During his office visit with his primary care physician, he was noted be hypoxic on his baseline 2 L of supplemental oxygen and required and increased to 6 L to get his oxygen saturations greater than 90%. Given his complaints and his complex medical history as noted, he was directed to the emergency room for further assessment. Workup and evaluation emergency room demonstrated the patient to be hemodynamically stable and in mild distress secondary to his shortness of breath although his oxygenation was stable on supplemental oxygen. Routine blood test demonstrated normal white blood cell count, relative anemia, and a chemistry panel with no critical electrolyte abnormalities and his kidney function/creatinine around baseline at 3.86 mg/dL with an associated GFR 15 cc/minute. His proBNP was greater than 30,000 and his chest x-ray showed mild interstitial edema with bilateral pleural effusions. His EKG showed electronic atrial pacemaker and electronic ventricular pacemaker finding it was felt that his shortness of breath was secondary to a CHF exacerbation and he was given IV diuretics and subsequently admitted to the hospital for further evaluation and therapy. Since his admission, he reports some improvement in his respiratory status with ongoing IV diuretics but has been noted that his renal function/creatinine is a bit worse in comparison to his admission creatinine. Renal consultation was requested due to his advanced chronic kidney disease. The patient normally follows with Dr. Bismark Downey for management of his chronic kidney disease. His baseline creatinine in the last 6-8 months has been running around 3.6 to 4.0 mg/dL although it has been as high as 4.6 mg/dL in late January of 2025. Unfortunately, as noted by his records, his renal function has been slowly deteriorating/advancing in the last year so if not longer. His baseline chronic kidney disease is secondary to biopsy-proven hypertensive nephrosclerosis in conjunction with his recent issues with congestive heart failure and the need for diuretic therapy to maintain his volume status. Given his ongoing progressive kidney disease, he did attend renal education and seems to be leaning towards incenter hemodialysis as a therapeutic option if in when his kidney function deteriorates to that point. he was subsequently referred to Dr. Jordan for dialysis access placement and he underwent a AV fistula placement approximately 3 weeks ago (done on 02/05/25) and tolerated this intervention reasonably well. Currently, at the time my evaluation, he reports some improvement in his breathing and overall respiratory status but still does not feel back to baseline. Review of Systems 2 Review of Systems: As per HPI. [facility] Past Medical History Medical History CHF (congestive heart failure) Dr Fowler Prostate cancer Managed by Dr. Elizalde Recurrent inguinal hernia without obstruction or gangrene Renal mass, right Rheumatoid arthritis History of prostate cancer Overactive bladder COPD exacerbation Screening for thyroid disorder COVID Persistent cough Encounter to establish care Orthostasis Erythropoietin deficiency anemia Rectus diastasis Peripheral artery disease With moderately decreased ABIs bilaterally December 2011 Monoclonal gammopathy Near syncope Sjogrens syndrome Spinal stenosis at L4-L5 level Bilateral carotid artery stenosis 50 to 69% stenosis on the right and greater than 70% stenosis on the left Lupus (systemic lupus erythematosus) Obstructive sleep apnea With nasal CPAP use Essential hypertension CKD (chronic kidney disease) Stage III managed by Dr. Quintin Downey Surgical History Surgical History History of prostate surgery H/O bilateral inguinal hernia repair pen reccurent RIH and open L ing. hernia rep w/ mesh 03/12/24 S/P bilateral inguinal hernia repair History of permanent cardiac pacemaker placement 2021 Hx of left inguinal hernia repair 2015, repair of mesh failure History of right inguinal hernia repair 2016, previous repair of mesh failure History of total bilateral knee replacement With the right knee being replaced once in the left knee being replaced 3 times with chronic left knee pain Family History Family History Mother Cirrhosis Sibling Esophageal cancer Father Acute myocardial infarction Lung disease Heart disease Sibling Esophageal cancer Skin cancer Social History Social History Social History: Patient continues to smoke half a pack a day. Denies drug use. No alcohol use. Lives at home with his and daughter. 3 dogs. Patient smoked half a pack a day (stopped 1 month ago). Denies drug use. No alcohol use. Code status: Full code Healthcare power of corporate attorney: Linda Frank () Smoking packs per day: 0.5 Smoking cigarettes per day: 10.0 Years smoked: 65 Smoking pack-years: 32.50 Smoking status: Current every day smoker Tobacco type: cigarettes Second hand tobacco smoke exposure: No Smoking end date: 06/24/24 Additional smoking assessment comments: SMOKING 0.5 PACK/DAY Alcohol intake: never Substance use: never Substance use type: does not use Do You Feel Safe in your Home?: Yes Lack of Transportation: No Lack of Food: Never True Current Housing: I Have Housing Concerned About Future Housing: No Difficulty Paying Gas/Electric Bills: No Difficulty Paying for Meds: No Currently Unemployed: No Education: High School Diploma/GED Difficulty w/ Childcare or Family Care: No Living arrangements: with family Additional living arrangements comments: and daughter 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 100 mcg-umeclid 1 inh inhalation .QD 12/22/23 03/07/25 History 62.5 mcg-vilant 25 mcg inhalat.powder (Trelegy Ellipta) metoprolol succinate 100 mg 100 mg PO QAM 01/04/24 03/07/25 History tablet,extended release 24 hr montelukast 10 mg tablet 10 mg PO HS 02/29/24 03/07/25 History tamsulosin 0.4 mg capsule 0.4 mg PO QAM #30 caps 05/26/24 03/07/25 Rx aspirin 81 mg tablet,delayed 81 mg PO QAM #30 tabs 06/12/24 03/07/25 Rx release albuterol sulfate 90 mcg/actuation 2 puff inhalation Q6H PRN 08/12/24 03/07/25 History aerosol inhaler Shortness Of Breath gabapentin 300 mg capsule 300 mg PO BID 09/11/24 03/07/25 History simvastatin 10 mg tablet See Rx Instructions .Route 09/11/24 03/07/25 Rx .COMPLEX #90 tabs sodium bicarbonate 650 mg tablet See Rx Instructions .Route 11/12/24 03/07/25 Rx .COMPLEX #180 tabs sennosides 8.6 mg-docusate sodium 2 tab-cap (2 x 8.6-50 mg) PO BID 11/14/24 03/07/25 Rx 50 mg tablet (Senokot-S) constipation #120 tabs finasteride 5 mg tablet (Proscar) 5 mg PO QAM #90 tabs 11/15/24 03/07/25 Rx bumetanide 1 mg tablet 1 mg PO QAM #90 tabs 02/25/25 03/07/25 Rx alprazolam 0.25 mg tablet 0.25 mg PO BID PRN anxiety #60 tabs 02/26/25 03/07/25 Rx lactulose 10 gram/15 mL oral 15 ml PO BID PRN constipation 03/05/25 03/07/25 Rx solution #1,200 mL Allergies Allergy/AdvReac Type Severity Reaction Status Date / Time clonazepam AdvReac Mild Nightmare Verified 03/07/25 18:14 Vital Signs Vital Signs Temp Pulse Resp BP Pulse Ox O2 Del Method O2 Flow Rate 03/08/25 12:00 71 03/08/25 10:00 71 03/08/25 09:28 70 03/08/25 09:27 96 Nasal Cannula 2 03/08/25 08:01 97.6 F 80 18 138/70 97 03/08/25 08:00 70 03/08/25 08:00 96 Nasal Cannula 2 03/08/25 05:45 70 03/08/25 04:00 70 03/08/25 04:00 70 22 H 97 Room Air 03/08/25 04:00 97.8 F 79 22 H 156/64 H 97 03/08/25 02:00 70 03/08/25 00:00 70 03/08/25 00:00 70 22 H 96 Room Air 03/07/25 23:15 CPAP 03/07/25 23:11 97.9 F 70 22 H 162/58 H 96 03/07/25 22:00 70 03/07/25 20:00 71 03/07/25 20:00 71 22 H 99 Room Air 03/07/25 20:00 97.9 F 70 22 H 159/59 H 99 03/07/25 19:45 70 96 Room Air 03/07/25 19:45 CPAP 03/07/25 18:00 70 03/07/25 17:47 97.6 F 70 22 H 111/73 99 03/07/25 17:30 71 19 123/81 93 Exam 2 Narrative: GENERAL APPEARANCE: elderly but WD/WN male in no acute distress HEENT: normocephalic, atraumatic, normal conjunctiva and sclera, nares patient NECK: no lymphadenopathy, thyromegaly, or JVD MOUTH: normal lips, teeth, and gums CARDIOVASCULAR: RRR, normal S1 and S2, no rub detected RESPIRATORY: coarse breath sounds; decreased at the bases ABDOMEN: soft, nontender, nondistended, positive bowel sounds present EXTREMITIES: no evidence of cyanosis, clubbing, or edema NEUROLOGICAL: alert and oriented x 3; CN II - XII intact bilaterally; no focal deficits noted Results Lab Results 03/08/25 04:16 03/08/25 04:16 Lab results: Most recent lab results Calcium 9.1 mg/dL (8.4-10.2) 03/08/25 04:16 Magnesium 2.2 mg/dL (1.6-2.3) 03/07/25 15:11
[2025-03-08] MEDS: FLUTICASONE PROPIONATE 0.05% NA SPR 16 GM BTL (*BKC) 2 SPRAY NASAL (16:34)
[2025-03-08] MEDS: MONTELUKAST SODIUM 10 MG TABLET PO (20:02)
--- NOTE | 2025-03-08 22:21 | PC.NURSE ---
This patient, Abdirizak Frank, was transferred to [facility] on 03/08/25 at 2230. Personal belongings sent with patient. Report given to Erica Frazier. Appropriate documentation sent with patient.
[2025-03-09] VITALS (13 sets, daily range): BP systolic 130–141; BP diastolic 61–63; PULSE 70–77; RESP 16–20; TEMP 36.1–36.8; O2SAT 92–95
[2025-03-09 06:01] LABS: Basophils Percent Auto 0.4 % (0.2-1.2); Hemoglobin 7.7 g/dL (14.0-18.0); Immature Granulocyte Absolute 0.02 K/mm3 (0.00-0.031); Immature Granulocyte Percent A 0.4 % (0-0.5); Lymphocytes Absolute Auto 0.98 K/mm3 (0.9-3.2); Lymphocytes Percent Auto 20.2 % (18.3-44.2); Mean Corpuscular HGB Conc 32.1 g/dl (32-36); Mean Corpuscular Hemoglobin 32.2 pg (26-34); Mean Corpuscular Volume 100.4 fl (80-100); Mean Platelet Volume 9.8 fl (7.4-10.4); Monocytes Absolute Auto 0.8 K/mm3 (0.1-0.6); Monocytes Percent Auto 16.5 % (2.6-8.5); Neutrophils Percent Auto 62.5 % (45.5-73.1); Platelet Count Result 207 k/mm3 (150-375); Red Blood Count 2.39 M/mm3 (4.6-6.20); Red Cell Distribution Width 12.4 % (11.5-14.5); White Blood Count 4.9 K/mm3 (4.5-10.0)
[2025-03-09 06:08] LABS: Alanine Aminotransferase 24 U/L (6-50); Albumin Level 3.1 g/dL (3.5-5.1); Alkaline Phosphatase 61 U/L (38-126); Anion Gap 10 mmol/L (4-12); Aspartate Amino Transferase 29 U/L (17-59); Bilirubin,Total 0.7 mg/dL (0.2-1.3); Blood Urea Nitrogen 84 mg/dL (9-20); Calcium 8.7 mg/dL (8.4-10.2); Carbon Dioxide 18 mmol/L (22-30); Chloride 111 mmol/L (98-107); Estimated CRCL calculation 11 ml/min; Estimated Glomerular Filt Rate 14; Glucose 68 mg/dL (65-110); Iron 21 ug/dL (49-181); Magnesium 2.1 mg/dL (1.6-2.3); Potassium 4.1 mmol/L (3.4-5.0); Sodium 139 mmol/L (137-145)
[2025-03-09 06:17] LABS: Percent Iron Saturation 7 % (20-50)
[2025-03-09 06:39] LABS: Hepatitis B Surface Antigen Negative (Negative)
[2025-03-09 06:57] LABS: Hepatitis B Surface Anti Res Negative
[2025-03-09 07:25] LABS: Folic Acid > 20.0 ng/mL (2.76->20)
--- NOTE | 2025-03-09 09:54 | P.PNNP_ITS ---
Progress Note: A&P Assessment and Plan (1) Stage 4 chronic kidney disease: Code(s): N18.4 - Chronic kidney disease, stage 4 (severe) Status: Chronic Assessment and Plan: * baseline creatinine running around 3.6 - 4.0mg/dl in 6 - 8 months * however, has been as high as 4.6mg/dl (late January 2025) * this causes him to bounce between CKD stage 4 and stage 5 * due to biopsy proven hypertensive nephrosclerosis with recent contributions from his heart failure and associated diuretic use * we had a discussion about dialysis in the office. He has chosen to do [facility] dialysis and had a fistula placed by Dr. Jordan on 02/05. * The fistula looks really good. * His intake/ output was negative by about a L yesterday and also negative overnight. * His creatinine is risen marginally but not much. I think we can continue IV diuretics for another day * will check another set of labs tomorrow (2) Acute hypoxic respiratory failure: Code(s): J96.01 - Acute respiratory failure with hypoxia Status: Acute Assessment and Plan: * as noted at PCP's office prior to presentation ER * supplemental oxygen weaned down to 2L * multifactorial: * CHF exacerbation * volume/fluid overload * valvular heart disease * known history of COPD * underlying ARTURO * relative anemia * other(?) * continue IV diuretics (3) Acute exacerbation of CHF (congestive heart failure): Qualifiers: Heart failure type: systolic Qualified Code(s): I50.23 - Acute on chronic systolic (congestive) heart failure Code(s): I50.9 - Heart failure, unspecified Status: Acute Assessment and Plan: * as suggested by history and exam * BNP >30,000 * admission CXR with mild interstitial edema with bilateral pleural effusions * repeat Echo on 03/08 noted (with worsened EF and valvular disease noted): * left ventricular systolic function is severely globally reduced, estimated at 30-35% * left ventricular diastolic function is abnormal * right ventricular systolic function is reduced * moderate aortic valve sclerosis * mild aortic valve regurgitation * mitral valve has a moderately calcified annulus * moderate to severe mitral valve regurgitation * moderate tricuspid valve regurgitation * moderate pulmonary hypertension, estimated pulmonary arterial systolic pressure is 51 mmHg * continue IV bumex bid for now * monitor I&Os and daily weights (4) Metabolic acidosis: Code(s): E87.20 - Acidosis, unspecified Status: Chronic Assessment and Plan: * due to advanced CKD * attempting to compensate with oral sodium bicarbonate * follow trend of CO2 levels (5) Anemia: Qualifiers: Anemia type: unspecified type Qualified Code(s): D64.9 - Anemia, unspecified Code(s): D64.9 - Anemia, unspecified Status: Chronic Assessment and Plan: * due to CKD and known history of MGUS * hemoglobin 7.7 * iron saturation is only 7 * getting Epogen * will add IV iron (6) Essential (primary) hypertension: Code(s): I10 - Essential (primary) hypertension Status: Chronic Assessment and Plan: * reasonable control * follow trend of hemodynamics (7) Obstructive sleep apnea: Code(s): G47.33 - Obstructive sleep apnea (adult) (pediatric) Status: Chronic Assessment and Plan: * continue home CPAP (8) Generalized weakness: Code(s): R53.1 - Weakness Status: Acute Assessment and Plan: * suspect due to acute medical issues as noted above * PT/OT as tolerated Subjective Date/time seen: 03/09/25 09:54 Interval history: patient is feeling better. No shortness of breath. He has no swelling but did not have any before either. Eating well today Review of Systems Cardiovascular: Cardiovascular: Reports no additional cardiovascular complaints Respiratory: Respiratory: Reports no additional respiratory complaints Gastrointestinal: Gastrointestinal: Reports no additional gastrointestinal complaints Genitourinary: Genitourinary: Reports no additional male genitourinary complaints Exam Narrative: WDWN in NAD skin no rash head ncat lungs clear cor reg no rub abd BS+ nontender and soft ext no edema. Right upper arm fistula with good thrill and bruit in the cephalic vein. Objective Data Vital Signs Vital Signs: Vital Signs - 24 hr 03/08/25 10:00 03/08/25 12:00 03/08/25 16:00 Temperature Pulse Rate 71 71 77 Respiratory Rate Blood Pressure Pulse Oximetry Oxygen Delivery Oxygen Flow Rate 03/08/25 16:27 03/08/25 20:00 03/08/25 20:00 Temperature 98.6 F Pulse Rate 76 71 Respiratory Rate 18 Blood Pressure 127/63 Pulse Oximetry 97 94 Oxygen Delivery Nasal Cannula Oxygen Flow Rate 2 03/08/25 21:05 03/08/25 23:11 03/09/25 00:00 Temperature 97.6 F Pulse Rate 69 70 Respiratory Rate 18 Blood Pressure 141/65 H Pulse Oximetry 93 98 Oxygen Delivery Nasal Cannula Oxygen Flow Rate 2 03/09/25 00:10 03/09/25 03:05 03/09/25 04:00 Temperature Pulse Rate 71 70 Respiratory Rate Blood Pressure Pulse Oximetry 92 Oxygen Delivery CPAP CPAP Oxygen Flow Rate 03/09/25 09:03 Temperature Pulse Rate Respiratory Rate Blood Pressure Pulse Oximetry 94 Oxygen Delivery Nasal Cannula Oxygen Flow Rate 2 Intake/Output Intake/Output: Intake & Output 03/06/25 03/07/25 03/08/25 03/09/25 23:59 23:59 23:59 23:59 Intake Total 1210 50 Output Total 250 2050 500 Balance -250 -840 -450 Meds/Results Medications: Active Medications Generic Name Dose Route Start Last Admin Trade Name Freq PRN Reason Stop Dose Admin Alprazolam 0.25 mg 03/07/25 19:41 03/08/25 20:01 Alprazolam (*Crx) 0.25 Mg Tablet PO 0.25 mg BID PRN Administration anxiety Amlodipine Besylate 10 mg 03/07/25 21:00 03/08/25 20:02 Amlodipine Besylate 10 Mg Tablet PO 10 mg Q12HR NICOLLE Administration Aspirin 81 mg 03/08/25 09:00 03/08/25 09:27 Aspirin 81 Mg Enteric Tablet PO 81 mg QAM NICOLLE Administration Bumetanide 1 mg 03/08/25 09:00 03/08/25 16:34 Bumetanide Inj 1 Mg/4 Ml Vial IV PUSH 1 mg BID NICOLLE Administration Epoetin Guevara-epbx 10,000 units 03/09/25 09:00 Epoetin Guevara-Epbx 10,000 Units/Ml Vial SUB-Q TUTHSA@09 NICOLLE Finasteride 5 mg 03/08/25 09:00 03/08/25 09:28 Finasteride 5 Mg Tablet PO 5 mg QAM NICOLLE Administration Fluticasone Propionate 2 spray 03/08/25 13:50 03/08/25 16:34 Fluticasone Propionate 0.05% Na Spr 16 Gm Btl (*Bkc) NASAL 2 spray QAM NICOLLE Administration Fluticasone/Umeclidinium/Vilanterol 1 puff 03/08/25 08:00 03/09/25 08:59 Fluticasone/Umeclidin/Vilanter 100-62.5-25 Mcg Ellipta INHALATION Not Given DAILYRT NICOLLE Gabapentin 300 mg 03/08/25 09:00 03/08/25 16:34 Gabapentin 300 Mg Capsule PO 300 mg BID NICOLLE Administration Guaifenesin 600 mg 03/08/25 09:00 03/08/25 20:01 Guaifenesin 12 Hr 600 Mg Tabcr PO 600 mg Q12HR NICOLLE Administration Hydroxychloroquine Sulfate 200 mg 03/08/25 09:00 03/08/25 09:28 Hydroxychloroquine Sulfate 200 Mg Tablet PO 200 mg DAILY NICOLLE Administration Lactulose 10 gm 03/07/25 19:41 Lactulose 20 Gm/30 Ml Udc PO BID PRN constipation Metoprolol Succinate 100 mg 03/08/25 09:00 03/08/25 09:28 Metoprolol Succinate Ext Rel 100 Mg Tabcr PO 100 mg QAM NICOLLE Administration Montelukast Sodium 10 mg 03/07/25 21:00 03/08/25 20:02 Montelukast Sodium 10 Mg Tablet PO 10 mg HS NICOLLE Administration Perflutren Lipid Microsphere 0 ml 03/07/25 19:41 Perflutren Lipid Microspheres 1.5 Ml Vial Diluted To 10 Ml Total Volume IV PUSH 03/10/25 19:41 ONCE PRN adequate visualization Protocol Senna/Docusate Sodium 2 tab 03/08/25 09:00 03/08/25 16:34 Senna/Docusate Sodium Tablet PO 2 tab BID NICOLLE Administration Simvastatin 10 mg 03/08/25 09:00 03/08/25 09:28 Simvastatin 10 Mg Tablet PO 10 mg DAILY NICOLLE Administration Sodium Bicarbonate 650 mg 03/07/25 21:00 03/08/25 20:02 Sodium Bicarbonate Tab 650 Mg Tablet PO 650 mg Q12HR NICOLLE Administration Tamsulosin HCl 0.4 mg 03/08/25 09:00 03/08/25 09:27 Tamsulosin Hcl 0.4 Mg Capsule PO 0.4 mg QAM NICOLLE Administration Labs Labs: Laboratory Results - last 24 hr 03/09/25 05:28 WBC 4.9 RBC 2.39 L Hgb 7.7 L Hct 24.0 L MCV 100.4 H MCH 32.2 MCHC 32.1 RDW 12.4 Plt Count 207 MPV 9.8 Immature Gran % (Auto) 0.4 Neut % (Auto) 62.5 Lymph % (Auto) 20.2 [place] % (Auto) 16.5 H Eos % (Auto) 0.0 Baso % (Auto) 0.4 Lymph # (Auto) 0.98 [place] # (Auto) 0.8 H Eos # (Auto) 0.0 Baso # (Auto) 0.0 Abs Immat Gran (auto) 0.02 Absolute Neuts (auto) 3.0 Absolute Nucleated RBC 0.000 Nucleated RBC % 0.0 Sodium 139 Potassium 4.1 Chloride 111 H Carbon Dioxide 18 L Anion Gap 10 BUN 84 H Creatinine 4.07 H Estim Creat Clear Calc 11 Estimated GFR 14 L Glucose 68 Calcium 8.7 Magnesium 2.1 Iron 21 L TIBC 283 % Saturation 7 L Ferritin 107.00 Total Bilirubin 0.7 AST 29 ALT 24 Alkaline Phosphatase 61 Total Protein 6.0 L Albumin 3.1 L Vitamin B12 904.0 Folate > 20.0 H Hep Bs Antigen Negative Hep Bs Antibody Negative
[2025-03-09] MEDS: EPOETIN ALFA-EPBX 10,000 UNITS/ML VIAL 10000 UNITS SUB-Q (10:21)
[2025-03-09] MEDS: BUMETANIDE INJ 1 MG/4 ML VIAL IV PUSH ×3 (10:21→21:23)
[2025-03-09] MEDS: amLODIPine BESYLATE 10 MG TABLET PO ×2 (10:22→21:23)
[2025-03-09] MEDS: FLUTICASONE PROPIONATE 0.05% NA SPR 16 GM BTL (*BKC) 2 SPRAY NASAL (10:22)
[2025-03-09] MEDS: SODIUM BICARBONATE TAB 650 MG TABLET PO ×2 (10:22→21:23)
[2025-03-09] MEDS: SIMVASTATIN 10 MG TABLET PO (10:22)
[2025-03-09] MEDS: ASPIRIN 81 MG ENTERIC TABLET PO (10:22)
[2025-03-09] MEDS: guaiFENesin 12 HR 600 MG TABCR PO ×2 (10:22→21:23)
[2025-03-09] MEDS: SENNA/DOCUSATE SODIUM TABLET 2 TAB PO ×2 (10:22→17:46)
[2025-03-09] MEDS: GABAPENTIN 300 MG CAPSULE PO ×2 (10:22→17:46)
[2025-03-09] MEDS: HYDROXYCHLOROQUINE SULFATE 200 MG TABLET PO (10:22)
[2025-03-09] MEDS: METOPROLOL SUCCINATE EXT REL 100 MG TABCR PO (10:22)
[2025-03-09] MEDS: FINASTERIDE 5 MG TABLET PO (10:23)
[2025-03-09] MEDS: TAMSULOSIN HCL 0.4 MG CAPSULE PO (10:25)
[2025-03-09] MEDS: metOLazone 5 MG TABLET PO (10:59)
[2025-03-09] MEDS: FLUTICASONE/UMECLIDIN/VILANTER 100-62.5-25 MCG ELLIPTA 1 PUFF INHALATION (11:49)
--- NOTE | 2025-03-09 12:03 | P.PNIM_ITS ---
Progress Note: A&P Assessment and Plan (1) Acute exacerbation of CHF (congestive heart failure): Qualifiers: Heart failure type: systolic Qualified Code(s): I50.23 - Acute on chronic systolic (congestive) heart failure Code(s): I50.9 - Heart failure, unspecified Status: Acute Assessment and Plan: - BNP >30,000 - most recent echo (05/2024): LV systolic function mildly globally reduced, estimated EF 45-50%, diastolic function is normal. See report for full details. - currently on: Bumex 1 mg daily, will continue as Bumex 1 mg IV b.i.d. - monitor I&Os and daily weights - trend renal function recheck echo with worsened EF down to 30-35% severely globally reduced systolic function. Moderate to severe mitral valve regurgitation and moderate tricuspid regurgitation and moderate pulmonary hypertension. was hypoxic in the pcp office needing oxygen supplementation Cardiology consultation. Patient on beta-alli. Not on DANIELLE inhibitor/ARB due to renal failure (2) CKD (chronic kidney disease): Qualifiers: Chronic kidney disease stage: unspecified stage Qualified Code(s): N18.9 - Chronic kidney disease, unspecified Code(s): N18.9 - Chronic kidney disease, unspecified Status: Chronic Assessment and Plan: - creatinine 3.86 and GFR 15, previously 4.63 and GFR 12 02/20 - trend renal function - trend electrolytes, correct as needed fistula in right arm placed 3 weeks ago renal consultation (3) COPD (chronic obstructive pulmonary disease): Qualifiers: COPD type: COPD with acute exacerbation Qualified Code(s): J44.1 - Chronic obstructive pulmonary disease with (acute) exacerbation Code(s): J44.9 - Chronic obstructive pulmonary disease, unspecified Status: Chronic Assessment and Plan: - DuoNebs p.r.n. - continue Trelegy add mucinex (4) Erythropoietin deficiency anemia: Code(s): D63.1 - Anemia in chronic kidney disease Status: Acute Assessment and Plan: - Hgb 8.6, previously 9.7 on 02/20 - transfuse if <7 - monitor (5) Essential (primary) hypertension: Code(s): I10 - Essential (primary) hypertension Status: Chronic Assessment and Plan: - chronic, currently 111/73 - continue home medications: Amlodipine, Metoprolol - monitor (6) Obstructive sleep apnea: Code(s): G47.33 - Obstructive sleep apnea (adult) (pediatric) Status: Chronic Assessment and Plan: - continue home CPAP (7) Acute hypoxic respiratory failure: Code(s): J96.01 - Acute respiratory failure with hypoxia Status: Acute Assessment and Plan: needing oxygen supplementation 6l in the pcp office He is off oxygen now cotninue to monitor Plan Diet: Heart healthy GI Prophylaxis: Not currently indicated DVT Prophylaxis: SCDs IV fluids: None Lines/Tubes: Peripheral IV Code Status: Full code Subjective Date/time seen: 03/09/25 12:03 Interval history: No overnight events. He is off oxygen. Feeling better. Chest x-ray and labs reviewed. Urine output Reviewed. Echo reviewed. Review of Systems Review of Systems: All systems reviewed & are unremarkable except as noted in HPI and below Exam Narrative: GENERAL: The patient is well developed, not in acute distress HEENT: Nonicteric sclerae, PERRLA, EOMI. Oropharynx clear. Moist mucous membranes. Conjunctivae appear well perfused. CHEST: Chest wall is nontender. HEART: Regular rate and rhythm without murmur, rubs, or gallops LUNGS: Coarse breath sounds bilaterally, no wheezes, no respiratory distress ABDOMEN: Soft, positive bowel sounds, non-tender, no organomegaly. SKIN: No rash, no excessive bruising, petechiae, or purpura. NEUROLOGIC: Cranial nerves II-XII intact, alert and oriented x 3, no gross motor deficits EXTREMITIES: no edema, cyanosis or clubbing Objective Data Vital Signs Vital Signs: Vital Signs - 24 hr 03/08/25 16:00 03/08/25 16:27 03/08/25 20:00 Temperature 98.6 F Pulse Rate 77 76 71 Respiratory Rate 18 Blood Pressure 127/63 Pulse Oximetry 97 Oxygen Delivery Oxygen Flow Rate 03/08/25 20:00 03/08/25 21:05 03/08/25 23:11 Temperature 97.6 F Pulse Rate 69 Respiratory Rate 18 Blood Pressure 141/65 H Pulse Oximetry 94 93 98 Oxygen Delivery Nasal Cannula Nasal Cannula Oxygen Flow Rate 2 2 03/09/25 00:00 03/09/25 00:10 03/09/25 03:05 Temperature Pulse Rate 70 71 Respiratory Rate Blood Pressure Pulse Oximetry 92 Oxygen Delivery CPAP CPAP Oxygen Flow Rate 03/09/25 04:03/09/25 09:03 03/09/25 10:22 Temperature Pulse Rate 70 70 Respiratory Rate Blood Pressure Pulse Oximetry 94 Oxygen Delivery Nasal Cannula Oxygen Flow Rate 2 Intake/Output Intake/Output: Intake & Output 03/06/25 03/07/25 03/08/25 03/09/25 23:59 23:59 23:59 23:59 Intake Total 1210 290 Output Total 250 2050 500 Balance -250 -840 -210 Meds/Results Medications: Active Medications Generic Name Dose Route Start Last Admin Trade Name Freq PRN Reason Stop Dose Admin Alprazolam 0.25 mg 03/07/25 19:41 03/08/25 20:01 Alprazolam (*Crx) 0.25 Mg Tablet PO 0.25 mg BID PRN Administration anxiety Amlodipine Besylate 10 mg 03/07/25 21:00 03/09/25 10:22 Amlodipine Besylate 10 Mg Tablet PO 10 mg Q12HR NICOLLE Administration Aspirin 81 mg 03/08/25 09:00 03/09/25 10:22 Aspirin 81 Mg Enteric Tablet PO 81 mg QAM NICOLLE Administration Bumetanide 1 mg 03/08/25 09:00 03/09/25 10:21 Bumetanide Inj 1 Mg/4 Ml Vial IV PUSH 1 mg BID NICOLLE Administration Epoetin Guevara-epbx 10,000 units 03/09/25 09:00 03/09/25 10:21 Epoetin Guevara-Epbx 10,000 Units/Ml Vial SUB-Q 10,000 units TUTHSA@09 NICOLLE Administration Finasteride 5 mg 03/08/25 09:00 03/09/25 10:23 Finasteride 5 Mg Tablet PO 5 mg QAM NICOLLE Administration Fluticasone Propionate 2 spray 03/08/25 13:50 03/09/25 10:22 Fluticasone Propionate 0.05% Na Spr 16 Gm Btl (*Bkc) NASAL 2 spray QAM NICOLLE Administration Fluticasone/Umeclidinium/Vilanterol 1 puff 03/08/25 08:00 03/09/25 11:49 Fluticasone/Umeclidin/Vilanter 100-62.5-25 Mcg Ellipta INHALATION 1 puff DAILYRT NICOLLE Administration Gabapentin 300 mg 03/08/25 09:00 03/09/25 10:22 Gabapentin 300 Mg Capsule PO 300 mg BID NICOLLE Administration Guaifenesin 600 mg 03/08/25 09:00 03/09/25 10:22 Guaifenesin 12 Hr 600 Mg Tabcr PO 600 mg Q12HR NICOLLE Administration Hydroxychloroquine Sulfate 200 mg 03/08/25 09:00 03/09/25 10:22 Hydroxychloroquine Sulfate 200 Mg Tablet PO 200 mg DAILY NICOLLE Administration Iron Sucrose 200 mg/ Sodium 110 mls @ 220 mls/hr 03/10/25 11:00 Chloride IVPB 03/14/25 09:29 QAM NICOLLE Lactulose 10 gm 03/07/25 19:41 Lactulose 20 Gm/30 Ml Udc PO BID PRN constipation Metoprolol Succinate 100 mg 03/08/25 09:00 03/09/25 10:22 Metoprolol Succinate Ext Rel 100 Mg Tabcr PO 100 mg QAM NICOLLE Administration Montelukast Sodium 10 mg 03/07/25 21:00 03/08/25 20:02 Montelukast Sodium 10 Mg Tablet PO 10 mg HS NICOLLE Administration Perflutren Lipid Microsphere 0 ml 03/07/25 19:41 Perflutren Lipid Microspheres 1.5 Ml Vial Diluted To 10 Ml Total Volume IV PUSH 03/10/25 19:41 ONCE PRN adequate visualization Protocol Senna/Docusate Sodium 2 tab 03/08/25 09:00 03/09/25 10:22 Senna/Docusate Sodium Tablet PO 2 tab BID NICOLLE Administration Simvastatin 10 mg 03/08/25 09:00 03/09/25 10:22 Simvastatin 10 Mg Tablet PO 10 mg DAILY NICOLLE Administration Sodium Bicarbonate 650 mg 03/07/25 21:00 03/09/25 10:22 Sodium Bicarbonate Tab 650 Mg Tablet PO 650 mg Q12HR NICOLLE Administration Tamsulosin HCl 0.4 mg 03/08/25 09:00 03/09/25 10:25 Tamsulosin Hcl 0.4 Mg Capsule PO 0.4 mg QAM NICOLLE Administration Radiology Results: ITS Impressions Chest X-Ray 03/09/25 10:53 IMPRESSION: 1. Small to moderate-sized posterior layering bilateral pleural effusions with associated bibasilar atelectasis and/or pneumonia. 2. Cardiomegaly. Labs Labs: Laboratory Results - last 24 hr 03/09/25 05:28 WBC 4.9 RBC 2.39 L Hgb 7.7 L Hct 24.0 L MCV 100.4 H MCH 32.2 MCHC 32.1 RDW 12.4 Plt Count 207 MPV 9.8 Immature Gran % (Auto) 0.4 Neut % (Auto) 62.5 Lymph % (Auto) 20.2 [place] % (Auto) 16.5 H Eos % (Auto) 0.0 Baso % (Auto) 0.4 Lymph # (Auto) 0.98 [place] # (Auto) 0.8 H Eos # (Auto) 0.0 Baso # (Auto) 0.0 Abs Immat Gran (auto) 0.02 Absolute Neuts (auto) 3.0 Absolute Nucleated RBC 0.000 Nucleated RBC % 0.0 Sodium 139 Potassium 4.1 Chloride 111 H Carbon Dioxide 18 L Anion Gap 10 BUN 84 H Creatinine 4.07 H Estim Creat Clear Calc 11 Estimated GFR 14 L Glucose 68 Calcium 8.7 Magnesium 2.1 Iron 21 L TIBC 283 % Saturation 7 L Ferritin 107.00 Total Bilirubin 0.7 AST 29 ALT 24 Alkaline Phosphatase 61 Total Protein 6.0 L Albumin 3.1 L Vitamin B12 904.0 Folate > 20.0 H Hep Bs Antigen Negative Hep Bs Antibody Negative
--- NOTE | 2025-03-09 17:13 | P.CONCA_ITS ---
Assessment and Plan Assessment and plan (1) Acute exacerbation of CHF (congestive heart failure): Qualifiers: Heart failure type: systolic Qualified Code(s): I50.23 - Acute on chronic systolic (congestive) heart failure Code(s): I50.9 - Heart failure, unspecified Status: Acute Assessment and Plan: He is a worsening cardiomyopathy as well as moderate multivalvular disease. This is all complicated by the fact he has severe end-stage renal disease. Approaching dialysis but not quite there. Ideally we had wanting to perform a cardiac catheterization but in order to avoid dialysis, this has been deferred for now. Continue IV Bumex and metoprolol. Given his severe renal failure, cannot give spironolactone and Entresto it also be of some concern. Would need to talk to Nephrology. In many ways, his volume status will be much easier to treat once he initiate dialysis. Also at that time could use some other medications and complete the workup for his worsening cardiomyopathy. For now, continue IV diuretics metoprolol as detailed above and see how he responds. (2) Bilateral carotid artery stenosis: Code(s): I65.23 - Occlusion and stenosis of bilateral carotid arteries Status: Acute Assessment and Plan: Moderate disease bilaterally. Continue statin and aspirin (3) Essential (primary) hypertension: Code(s): I10 - Essential (primary) hypertension Status: Chronic Assessment and Plan: Borderline controlled (4) Stage 4 chronic kidney disease: Code(s): N18.4 - Chronic kidney disease, stage 4 (severe) Status: Chronic Assessment and Plan: Followed by Dr. Downey (5) Pacemaker: Code(s): Z95.0 - Presence of cardiac pacemaker Status: Acute Assessment and Plan: Function normally at last office check History of Present Illness History of Present Illness Consult date/time: 03/09/25 17:13 Requesting physician: Ramin Snow MD Consult reason: congestive heart failure Reason For Visit: CHF Exac Narrative: Reason for consultation: CHF Date of service 03/09/2025 Requesting provider: Dr. snow History: Patient 84-year-old male who has a history of systolic congestive heart failure, cardiomyopathy, moderate mitral regurgitation, pacemaker implantation, bilateral carotid artery stenosis who presents to the hospital due to abdominal bloating, shortness of breath. Patient has had a worsening ejection fraction over the past couple evaluations. EF most recently was 30% by echocardiogram in December 2024. Ideally coronary angiogram had been wanted but given his tenuous renal status, this has been deferred. He states he has been more short of breath over the past week or so. No chest pain, passing out. He has been having some paroxysmal nocturnal dyspnea. He had not had a bowel movement for several days and his abdomen became distended. BNP was elevated and due to x-ray showing effusions, cardiology consultation was requested. Review of Systems 2 Review of Systems: All systems reviewed & are unremarkable except as noted in HPI and below Constitutional: Constitutional: Denies difficulty sleeping Eyes: Eyes: Denies blurry vision ENT: Reports Normal hearing present Cardiovascular: Cardiovascular: Denies chest pain Respiratory: Respiratory: Reports dyspnea Gastrointestinal: Gastrointestinal: Denies abdominal pain Genitourinary: Genitourinary: Denies hematuria Musculoskeletal: Musculoskeletal: Denies back pain Integumentary/Breasts: Skin/Breast: Denies breast pain Neurologic: Denies Abnormal speech present Psychiatric: Psychiatric: Denies anxiety Endocrine: Endocrine: Denies excessive sweating Hematologic/Lymphatic: Hematologic/Lymphatic: Denies easy bleeding Allergic/Immunologic: Allergic/Immunologic: Denies GI upset with certain foods PMFSH Past Medical History Medical History (Updated 03/09/25 @ 17:23 by Maged Fowler MD) Pacemaker CHF (congestive heart failure) Dr Fowler Prostate cancer Managed by Dr. Elizalde Recurrent inguinal hernia without obstruction or gangrene Renal mass, right Rheumatoid arthritis History of prostate cancer Overactive bladder COPD exacerbation Screening for thyroid disorder COVID Persistent cough Encounter to establish care Orthostasis Erythropoietin deficiency anemia Rectus diastasis Peripheral artery disease With moderately decreased ABIs bilaterally December 2011 Monoclonal gammopathy Near syncope Sjogrens syndrome Spinal stenosis at L4-L5 level Bilateral carotid artery stenosis 50 to 69% stenosis on the right and greater than 70% stenosis on the left Lupus (systemic lupus erythematosus) Obstructive sleep apnea With nasal CPAP use Essential hypertension CKD (chronic kidney disease) Stage III managed by Dr. Quintin Downey Surgical History Surgical History History of prostate surgery H/O bilateral inguinal hernia repair pen reccurent RIH and open L ing. hernia rep w/ mesh 03/12/24 S/P bilateral inguinal hernia repair History of permanent cardiac pacemaker placement 2021 Hx of left inguinal hernia repair 2016, repair of mesh failure History of right inguinal hernia repair 2016, previous repair of mesh failure History of total bilateral knee replacement With the right knee being replaced once in the left knee being replaced 3 times with chronic left knee pain Family History Family History Mother Cirrhosis Sibling Esophageal cancer Father Acute myocardial infarction Lung disease Heart disease Sibling Esophageal cancer Skin cancer Social History Social History Social History: Patient continues to smoke half a pack a day. Denies drug use. No alcohol use. Lives at home with his and daughter. 3 dogs. Patient smoked half a pack a day (stopped 1 month ago). Denies drug use. No alcohol use. Code status: Full code Healthcare power of offensive coordinator: Linda Huizarpatriciaale () Smoking packs per day: 0.5 Smoking cigarettes per day: 10.0 Years smoked: 65 Smoking pack-years: 32.50 Smoking status: Current every day smoker Tobacco type: cigarettes Second hand tobacco smoke exposure: No Smoking end date: 06/24/24 Additional smoking assessment comments: SMOKING 0.5 PACK/DAY Alcohol intake: never Substance use: never Substance use type: does not use Do You Feel Safe in your Home?: Yes Lack of Transportation: No Lack of Food: Never True Current Housing: I Have Housing Concerned About Future Housing: No Difficulty Paying Gas/Electric Bills: No Difficulty Paying for Meds: No Currently Unemployed: No Education: High School Diploma/GED Difficulty w/ Childcare or Family Care: No Living arrangements: with family Additional living arrangements comments: and daughter 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 100 mcg-umeclid 1 inh inhalation .QD 12/22/23 03/07/25 History 62.5 mcg-vilant 25 mcg inhalat.powder (Trelegy Ellipta) metoprolol succinate 100 mg 100 mg PO QAM 01/04/24 03/07/25 History tablet,extended release 24 hr montelukast 10 mg tablet 10 mg PO HS 02/29/24 03/07/25 History tamsulosin 0.4 mg capsule 0.4 mg PO QAM #30 caps 05/26/24 03/07/25 Rx aspirin 81 mg tablet,delayed 81 mg PO QAM #30 tabs 06/12/24 03/07/25 Rx release albuterol sulfate 90 mcg/actuation 2 puff inhalation Q6H PRN 08/12/24 03/07/25 History aerosol inhaler Shortness Of Breath gabapentin 300 mg capsule 300 mg PO BID 09/11/24 03/07/25 History simvastatin 10 mg tablet See Rx Instructions .Route 09/11/24 03/07/25 Rx .COMPLEX #90 tabs sodium bicarbonate 650 mg tablet See Rx Instructions .Route 11/12/24 03/07/25 Rx .COMPLEX #180 tabs sennosides 8.6 mg-docusate sodium 2 tab-cap (2 x 8.6-50 mg) PO BID 11/14/24 03/07/25 Rx 50 mg tablet (Senokot-S) constipation #120 tabs finasteride 5 mg tablet (Proscar) 5 mg PO QAM #90 tabs 11/15/24 03/07/25 Rx bumetanide 1 mg tablet 1 mg PO QAM #90 tabs 02/25/25 03/07/25 Rx alprazolam 0.25 mg tablet 0.25 mg PO BID PRN anxiety #60 tabs 02/26/25 03/07/25 Rx lactulose 10 gram/15 mL oral 15 ml PO BID PRN constipation 03/05/25 03/07/25 Rx solution #1,200 mL Allergies Allergy/AdvReac Type Severity Reaction Status Date / Time clonazepam AdvReac Mild Nightmare Verified 03/07/25 18:14 Vital Signs Vital Signs - 24 hr 03/08/25 20:00 03/08/25 20:00 03/08/25 21:05 Temperature Pulse Rate 71 Respiratory Rate Blood Pressure Pulse Oximetry 94 93 Oxygen Delivery Nasal Cannula Nasal Cannula Oxygen Flow Rate 2 2 03/08/25 23:11 03/09/25 00:00 03/09/25 00:10 Temperature 36.4 C Pulse Rate 69 70 71 Respiratory Rate 18 Blood Pressure 141/65 H Pulse Oximetry 98 92 Oxygen Delivery CPAP Oxygen Flow Rate 03/09/25 03:05 03/09/25 04:00 03/09/25 08:00 Temperature Pulse Rate 70 Respiratory Rate Blood Pressure Pulse Oximetry Oxygen Delivery CPAP Room Air Oxygen Flow Rate 03/09/25 09:03 03/09/25 10:22 03/09/25 13:54 Temperature 36.1 C L Pulse Rate 70 74 Respiratory Rate 20 Blood Pressure 130/63 Pulse Oximetry 94 95 Oxygen Delivery Nasal Cannula Oxygen Flow Rate 2 Exam 2 Narrative: Alert oriented appears stated age Const: General: comfortable and no acute distress HENMT: Face/Nose/Sinus: Normal nares present Mouth: Yes moist mucous membranes Eyes: General: appearance normal, both eyes and all related structures S clera: sclerae normal Neck: Neck: supple and no JVD Chest: Other: No reproducible chest wall pain to palpation Resp: Effort & Inspection: normal respiratory effort Auscultation: rales and diminished lung sounds Cardio: Rate: regular rate Heart sounds: Murmur heart sound present GI: Inspection: non-distended GI Palp: Yes Soft to palpation Skin: General skin exam: normal color Neuro: Speech: normal speech Sensory Exam: normal sensation Extrem: General: no edema Psych: Mental Status: mental status grossly normal Affect: normal affect Results Labs and Meds 03/09/25 05:28 03/09/25 05:28 Lab results: Cardiac Enzymes 03/09/25 Range/Units 05:28 AST 29 (17-59) U/L CBC 03/09/25 Range/Units 05:28 WBC 4.9 (4.5-10.0) K/mm3 RBC 2.39 L (4.6-6.20) M/mm3 Hgb 7.7 L (14.0-18.0) g/dL Hct 24.0 L (42.0-52.0) % Plt Count 207 (150-375) k/mm3 Lymph # (Auto) 0.98 (0.9-3.2) K/mm3 [place] # (Auto) 0.8 H (0.1-0.6) K/mm3 Eos # (Auto) 0.0 (0-0.3) K/mm3 Baso # (Auto) 0.0 (0.0-0.1) K/mm3 Comprehensive Metabolic Panel 03/09/25 Range/Units 05:28 Sodium 139 (137-145) mmol/L Potassium 4.1 (3.4-5.0) mmol/L Chloride 111 H (98-107) mmol/L Carbon Dioxide 18 L (22-30) mmol/L BUN 84 H (9-20) mg/dL Creatinine 4.07 H (0.7-1.3) mg/dL Glucose 68 (65-110) mg/dL Calcium 8.7 (8.4-10.2) mg/dL AST 29 (17-59) U/L ALT 24 (6-50) U/L Alkaline Phosphatase 61 (38-126) U/L Total Protein 6.0 L (6.3-8.2) g/dL Albumin 3.1 L (3.5-5.1) g/dL Intake and Output 03/09/25 03/09/25 03/09/25 07:59 15:59 23:59 Intake Total 50 480 Output Total 500 Balance -450 480 Intake: Oral 50 480 Output: Urine 500 Patient Weight 03/09/25 23:59 Weight 74.4 kg Echocardiogram from December 2024 personally reviewed and independently interpreted showing EF of 30%. Moderate MR, mild AI, mild left atrial enlargement Echocardiogram this admission:2. Left ventricular chamber dimension is severely enlarged. 3. Left ventricular systolic function is severely globally reduced, estimated at 30-35. 4. There is moderate concentric increased left ventricular wall thickness. 5. The left ventricular diastolic function is abnormal. 6. E/e' 23 is elevated. 7. Right ventricular systolic function is reduced. 8. Linear artifact in right ventricle suggestive of catheter(s), pacemaker lead(s), or ICD lead(s). 9. Left atrial chamber dimension is severely enlarged. 10. Right atrial chamber dimension is moderately enlarged. 11. Linear artifact in the right atrium suggestive of catheter(s), pacemaker lead(s), or ICD lead(s). 12. There is moderate aortic valve sclerosis. 13. There is mild aortic valve regurgitation. 14. The mitral valve has a moderately calcified annulus. 15. There is moderate to severe mitral valve regurgitation. 16. There is moderate tricuspid valve regurgitation. 17. Moderate pulmonary hypertension, estimated pulmonary arterial systolic pressure is 51 mmHg. 18. Dilated inferior vena cava with >50% collapse upon inspiration consistent with elevated right atrial pressure, 10 mmHg.
[2025-03-09] MEDS: MONTELUKAST SODIUM 10 MG TABLET PO (21:23)
[2025-03-10] VITALS (13 sets, daily range): BP systolic 126–144; BP diastolic 55–76; PULSE 70–97; RESP 16–20; TEMP 35.7–37.1; O2SAT 92–97
[2025-03-10 06:28] LABS: Alanine Aminotransferase 25 U/L (6-50); Albumin Level 3.5 g/dL (3.5-5.1); Alkaline Phosphatase 68 U/L (38-126); Anion Gap 12 mmol/L (4-12); Aspartate Amino Transferase 38 U/L (17-59); Bilirubin,Total 0.8 mg/dL (0.2-1.3); Blood Urea Nitrogen 86 mg/dL (9-20); Calcium 9.1 mg/dL (8.4-10.2); Carbon Dioxide 20 mmol/L (22-30); Chloride 109 mmol/L (98-107); Estimated CRCL calculation 10 ml/min; Estimated Glomerular Filt Rate 13; Glucose 84 mg/dL (65-110); Magnesium 2.1 mg/dL (1.6-2.3); Phosphorus 5.6 mg/dL (2.5-4.5); Potassium 3.9 mmol/L (3.4-5.0); Sodium 141 mmol/L (137-145)
[2025-03-10 07:10] LABS: Basophils Percent Auto 0.5 % (0.2-1.2); Hematocrit 26.8 % (42.0-52.0); Hemoglobin 8.5 g/dL (14.0-18.0); Immature Granulocyte Absolute 0.03 K/mm3 (0.00-0.031); Immature Granulocyte Percent A 0.4 % (0-0.5); Mean Corpuscular HGB Conc 31.7 g/dl (32-36); Mean Corpuscular Hemoglobin 31.8 pg (26-34); Mean Corpuscular Volume 100.4 fl (80-100); Mean Platelet Volume 9.8 fl (7.4-10.4); Monocytes Percent Auto 12.1 % (2.6-8.5); Neutrophils Absolute Auto 6.2 K/mm3 (1.3-6.7); Platelet Count Result 246 k/mm3 (150-375); Red Blood Count 2.67 M/mm3 (4.6-6.20); Red Cell Distribution Width 12.5 % (11.5-14.5)
[2025-03-10 07:24] LABS: Hepatitis B Core Ab Total NON-REACTIVE (NON-REACTIVE)
[2025-03-10] MEDS: FLUTICASONE/UMECLIDIN/VILANTER 100-62.5-25 MCG ELLIPTA 1 PUFF INHALATION (08:28)
[2025-03-10] MEDS: FLUTICASONE PROPIONATE 0.05% NA SPR 16 GM BTL (*BKC) 2 SPRAY NASAL (09:59)
[2025-03-10] MEDS: HYDROXYCHLOROQUINE SULFATE 200 MG TABLET PO (10:00)
[2025-03-10] MEDS: SIMVASTATIN 10 MG TABLET PO (10:00)
[2025-03-10] MEDS: FINASTERIDE 5 MG TABLET PO (10:00)
[2025-03-10] MEDS: METOPROLOL SUCCINATE EXT REL 100 MG TABCR PO (10:00)
[2025-03-10] MEDS: guaiFENesin 12 HR 600 MG TABCR PO ×2 (10:00→20:49)
[2025-03-10] MEDS: amLODIPine BESYLATE 10 MG TABLET PO ×2 (10:00→20:50)
[2025-03-10] MEDS: TAMSULOSIN HCL 0.4 MG CAPSULE PO (10:00)
[2025-03-10] MEDS: BUMETANIDE INJ 1 MG/4 ML VIAL IV PUSH (10:00)
[2025-03-10] MEDS: ASPIRIN 81 MG ENTERIC TABLET PO (10:01)
[2025-03-10] MEDS: GABAPENTIN 300 MG CAPSULE PO ×2 (10:01→17:10)
[2025-03-10] MEDS: SODIUM BICARBONATE TAB 650 MG TABLET PO (10:03)
--- NOTE | 2025-03-10 10:19 | P.PNCA_ITS ---
Progress Note: A&P Assessment and Plan (1) Acute exacerbation of CHF (congestive heart failure): Qualifiers: Heart failure type: systolic Qualified Code(s): I50.23 - Acute on chronic systolic (congestive) heart failure Code(s): I50.9 - Heart failure, unspecified Status: Acute Assessment and Plan: He is a worsening cardiomyopathy as well as moderate multivalvular disease. This is all complicated by the fact he has severe end-stage renal disease. Approaching dialysis but not quite there. Ideally we had wanting to perform a cardiac catheterization but in order to avoid dialysis, this has been deferred for now. Continue IV Bumex but will reduce the frequency and metoprolol. Given his severe renal failure, cannot give spironolactone and Entresto it also be of some concern. Would need to talk to Nephrology. In many ways, his volume status will be much easier to treat once he initiate dialysis. Also at that time could use some other medications and complete the workup for his worsening cardiomyopathy. (2) Bilateral carotid artery stenosis: Code(s): I65.23 - Occlusion and stenosis of bilateral carotid arteries Status: Acute Assessment and Plan: Moderate disease bilaterally. Continue statin and aspirin (3) Essential (primary) hypertension: Code(s): I10 - Essential (primary) hypertension Status: Chronic Assessment and Plan: Borderline controlled (4) Stage 4 chronic kidney disease: Code(s): N18.4 - Chronic kidney disease, stage 4 (severe) Status: Chronic Assessment and Plan: Followed by Dr. Downey. Creatinine up to 4.5 today. Will reduce his IV Bumex to once daily and await Dr. Downey is a opinion. May need to stop it completely (5) Pacemaker: Code(s): Z95.0 - Presence of cardiac pacemaker Status: Acute Assessment and Plan: Function normally at last office check Subjective Date/time seen: 03/10/25 10:19 Interval history: 84-year-old with cardiomyopathy, renal failure, constipation Date of service 03/10/2025: Feeling a little bit better today. Less short of breath. No swelling. No chest pain Review of Systems Review of Systems: All systems reviewed & are unremarkable except as noted in HPI and below Constitutional: Constitutional: Denies difficulty sleeping and Denies excessive sweating Eyes: Eyes: Denies blurry vision ENT: Reports Normal hearing present Cardiovascular: Cardiovascular: Denies chest pain and Reports dyspnea Respiratory: Respiratory: Reports dyspnea Gastrointestinal: Gastrointestinal: Denies abdominal pain Genitourinary: Genitourinary: Denies hematuria Musculoskeletal: Musculoskeletal: Denies back pain Integumentary/Breasts: Skin/Breast: Denies breast pain Neurologic: Reports Normal hearing present and Denies Abnormal speech present Psychiatric: Psychiatric: Denies anxiety Endocrine: Endocrine: Denies excessive sweating Hematologic/Lymphatic: Hematologic/Lymphatic: Denies easy bleeding Allergic/Immunologic: Allergic/Immunologic: Denies GI upset with certain foods Exam Narrative: Alert oriented appears stated age Const: General: comfortable and no acute distress HENMT: Face/Nose/Sinus: Normal nares present Mouth: Yes moist mucous membranes Eyes: General: appearance normal, both eyes and all related structures Sclera: sclerae normal Neck: Neck: supple and no JVD Chest: Other: No reproducible chest wall pain to palpation Resp: Effort & Inspection: normal respiratory effort Auscultation: rales and diminished lung sounds Cardio: Rate: regular rate Heart sounds: Murmur heart sound present GI: Inspection: non-distended Skin: General skin exam: normal color Neuro: Cranial nerves: Yes Normal hearing present Speech: normal speech and No Abnormal speech present Sensory Exam: normal sensation Extrem: General: no edema Psych: Mental Status: mental status grossly normal Affect: normal affect Objective Data Vital Signs Vital Signs: Vital Signs - 24 hr 03/09/25 10:22 03/09/25 12:04 03/09/25 13:54 Temperature 36.1 C L Pulse Rate 70 70 74 Respiratory Rate 20 Blood Pressure 130/63 Pulse Oximetry 95 Oxygen Delivery Fraction of Inspired Oxygen 03/09/25 16:01 03/09/25 20:00 03/09/25 21:11 Temperature Pulse Rate 73 73 72 Respiratory Rate 20 Blood Pressure Pulse Oximetry 92 Oxygen Delivery Room Air Fraction of Inspired Oxygen 21 03/09/25 21:32 03/09/25 23:12 03/10/25 00:00 Temperature 36.8 C Pulse Rate 77 70 70 Respiratory Rate 16 Blood Pressure 141/61 H Pulse Oximetry 95 92 Oxygen Delivery CPAP Fraction of Inspired Oxygen 03/10/25 02:35 03/10/25 04:00 03/10/25 04:45 Temperature Pulse Rate 71 70 70 Respiratory Rate Blood Pressure Pulse Oximetry 93 92 Oxygen Delivery CPAP BiPAP Fraction of Inspired Oxygen 03/10/25 06:00 03/10/25 08:28 03/10/25 08:28 Temperature 37.1 C Pulse Rate 88 97 Respiratory Rate 16 20 Blood Pressure 144/74 H Pulse Oximetry 94 97 Oxygen Delivery Room Air Fraction of Inspired Oxygen 21 03/10/25 10:00 Temperature Pulse Rate 97 Respiratory Rate Blood Pressure Pulse Oximetry Oxygen Delivery Fraction of Inspired Oxygen Intake/Output Intake/Output: Intake & Output 03/07/25 03/08/25 03/09/25 03/10/25 23:59 23:59 23:59 23:59 Intake Total 1210 930 Output Total 250 2050 1700 400 Balance -250 -840 -770 -400 Meds/Results Medications: Active Medications Generic Name Dose Route Start Last Admin Trade Name Freq PRN Reason Stop Dose Admin Alprazolam 0.25 mg 03/07/25 19:41 03/08/25 20:01 Alprazolam (*Crx) 0.25 Mg Tablet PO 0.25 mg BID PRN Administration anxiety Amlodipine Besylate 10 mg 03/07/25 21:00 03/10/25 10:00 Amlodipine Besylate 10 Mg Tablet PO 10 mg Q12HR NICOLLE Administration Aspirin 81 mg 03/08/25 09:00 03/10/25 10:01 Aspirin 81 Mg Enteric Tablet PO 81 mg QAM NICOLLE Administration Bumetanide 1 mg 03/08/25 09:00 03/10/25 10:00 Bumetanide Inj 1 Mg/4 Ml Vial IV PUSH 1 mg BID NICOLLE Administration Epoetin Guevara-epbx 10,000 units 03/09/25 09:00 03/09/25 10:21 Epoetin Guevara-Epbx 10,000 Units/Ml Vial SUB-Q 10,000 units TUTHSA@09 NICOLLE Administration Finasteride 5 mg 03/08/25 09:00 03/10/25 10:00 Finasteride 5 Mg Tablet PO 5 mg QAM NICOLLE Administration Fluticasone Propionate 2 spray 03/08/25 13:50 03/10/25 09:59 Fluticasone Propionate 0.05% Na Spr 16 Gm Btl (*Bkc) NASAL 2 spray QAM NICOLLE Administration Fluticasone/Umeclidinium/Vilanterol 1 puff 03/08/25 08:00 03/10/25 08:28 Fluticasone/Umeclidin/Vilanter 100-62.5-25 Mcg Ellipta INHALATION 1 puff DAILYRT NICOLLE Administration Gabapentin 300 mg 03/08/25 09:00 03/10/25 10:01 Gabapentin 300 Mg Capsule PO 300 mg BID NICOLLE Administration Guaifenesin 600 mg 03/08/25 09:00 03/10/25 10:00 Guaifenesin 12 Hr 600 Mg Tabcr PO 600 mg Q12HR NICOLLE Administration Hydroxychloroquine Sulfate 200 mg 03/08/25 09:00 03/10/25 10:00 Hydroxychloroquine Sulfate 200 Mg Tablet PO 200 mg DAILY NICOLLE Administration Iron Sucrose 200 mg/ Sodium 110 mls @ 220 mls/hr 03/10/25 11:00 Chloride IVPB 03/14/25 09:29 QAM NICOLLE Lactulose 10 gm 03/07/25 19:41 Lactulose 20 Gm/30 Ml Udc PO BID PRN constipation Metoprolol Succinate 100 mg 03/08/25 09:00 03/10/25 10:00 Metoprolol Succinate Ext Rel 100 Mg Tabcr PO 100 mg QAM NICOLLE Administration Montelukast Sodium 10 mg 03/07/25 21:00 03/09/25 21:23 Montelukast Sodium 10 Mg Tablet PO 10 mg HS NICOLLE Administration Perflutren Lipid Microsphere 0 ml 03/07/25 19:41 Perflutren Lipid Microspheres 1.5 Ml Vial Diluted To 10 Ml Total Volume IV PUSH 03/10/25 19:41 ONCE PRN adequate visualization Protocol Senna/Docusate Sodium 2 tab 03/08/25 09:00 03/10/25 10:01 Senna/Docusate Sodium Tablet PO Not Given BID NICOLLE Simvastatin 10 mg 03/08/25 09:00 03/10/25 10:00 Simvastatin 10 Mg Tablet PO 10 mg DAILY NICOLLE Administration Sodium Bicarbonate 650 mg 03/07/25 21:00 03/10/25 10:03 Sodium Bicarbonate Tab 650 Mg Tablet PO 650 mg Q12HR NICOLLE Administration Tamsulosin HCl 0.4 mg 03/08/25 09:00 03/10/25 10:00 Tamsulosin Hcl 0.4 Mg Capsule PO 0.4 mg QAM NICOLLE Administration Radiology Results: ITS Impressions Chest X-Ray 03/09/25 10:53 IMPRESSION: 1. Small to moderate-sized posterior layering bilateral pleural effusions with associated bibasilar atelectasis and/or pneumonia. 2. Cardiomegaly. Labs Labs: Laboratory Results - last 24 hr 03/09/25 03/10/25 05:28 05:53 WBC 8.0 RBC 2.67 L Hgb 8.5 L Hct 26.8 L MCV 100.4 H MCH 31.8 MCHC 31.7 L RDW 12.5 Plt Count 246 MPV 9.8 Immature Gran % (Auto) 0.4 Neut % (Auto) 77.0 H Lymph % (Auto) 10.0 L [place] % (Auto) 12.1 H Eos % (Auto) 0.0 Baso % (Auto) 0.5 Lymph # (Auto) 0.80 L [place] # (Auto) 1.0 H Eos # (Auto) 0.0 Baso # (Auto) 0.0 Abs Immat Gran (auto) 0.03 Absolute Neuts (auto) 6.2 Absolute Nucleated RBC 0.000 Nucleated RBC % 0.0 Sodium 141 Potassium 3.9 Chloride 109 H Carbon Dioxide 20 L Anion Gap 12 BUN 86 H Creatinine 4.47 H Estim Creat Clear Calc 10 Estimated GFR 13 L Glucose 84 Calcium 9.1 Phosphorus 5.6 H Magnesium 2.1 Total Bilirubin 0.8 AST 38 ALT 25 Alkaline Phosphatase 68 Total Protein 6.0 L Albumin 3.5 Hep B Core Total Ab Non-reactive
--- NOTE | 2025-03-10 11:03 | P.PNNP_ITS ---
Progress Note: A&P Assessment and Plan (1) Stage 4 chronic kidney disease: Code(s): N18.4 - Chronic kidney disease, stage 4 (severe) Status: Chronic Assessment and Plan: * baseline creatinine running around 3.6 - 4.0mg/dl in 6 - 8 months * however, has been as high as 4.6mg/dl (late January 2025) * this causes him to bounce between CKD stage 4 and stage 5 * due to biopsy proven hypertensive nephrosclerosis with recent contributions from his heart failure and associated diuretic use * we had a discussion about dialysis in the office. He has chosen to do [facility] dialysis and had a fistula placed by Dr. Jordan on 02/05. * The fistula Appears to be functioning very well. * His intake/ output was 930/1700 * His creatinine is risen a bit from 4.07 to 4.47. * Volume status looks pretty good right now. * Will change the diuretic from IV to p.o.. * He was on bumetanide 1mg daily at home. Will start 1mg twice a day. (2) Acute hypoxic respiratory failure: Code(s): J96.01 - Acute respiratory failure with hypoxia Status: Acute Assessment and Plan: * as noted at PCP's office prior to presentation ER * supplemental oxygen weaned down to 2L * multifactorial: * CHF exacerbation * volume/fluid overload * valvular heart disease * known history of COPD * underlying ARTURO * relative anemia * other(?) * Change IV diuretics to p.o.. (3) Acute exacerbation of CHF (congestive heart failure): Qualifiers: Heart failure type: systolic Qualified Code(s): I50.23 - Acute on chronic systolic (congestive) heart failure Code(s): I50.9 - Heart failure, unspecified Status: Acute Assessment and Plan: * as suggested by history and exam * BNP >30,000 * admission CXR with mild interstitial edema with bilateral pleural effusions * repeat Echo on 03/08 noted (with worsened EF and valvular disease noted): * left ventricular systolic function is severely globally reduced, estimated at 30-35% * left ventricular diastolic function is abnormal * right ventricular systolic function is reduced * moderate aortic valve sclerosis * mild aortic valve regurgitation * mitral valve has a moderately calcified annulus * moderate to severe mitral valve regurgitation * moderate tricuspid valve regurgitation * moderate pulmonary hypertension, estimated pulmonary arterial systolic pressure is 51 mmHg * Change IV Bumex to p.o. * monitor I&Os and I will order daily weights (4) Metabolic acidosis: Code(s): E87.20 - Acidosis, unspecified Status: Chronic Assessment and Plan: * due to advanced CKD * attempting to compensate with oral sodium bicarbonate * will increase dose to 1300 bidpc * follow trend of CO2 levels (5) Anemia: Qualifiers: Anemia type: unspecified type Qualified Code(s): D64.9 - Anemia, unspecified Code(s): D64.9 - Anemia, unspecified Status: Chronic Assessment and Plan: * due to CKD and known history of MGUS * hemoglobin 7.7 yesterday, up to 8.5 today * iron saturation is only 7 * getting Epogen * on IV iron (6) Essential (primary) hypertension: Code(s): I10 - Essential (primary) hypertension Status: Chronic Assessment and Plan: * systolic 120s to 140s * follow trend of hemodynamics (7) Obstructive sleep apnea: Code(s): G47.33 - Obstructive sleep apnea (adult) (pediatric) Status: Chronic Assessment and Plan: * continue home CPAP (8) Generalized weakness: Code(s): R53.1 - Weakness Status: Acute Assessment and Plan: * suspect due to acute medical issues as noted above * PT/OT as tolerated Subjective Date/time seen: 03/10/25 11:03 Interval history: Patient is feeling okay today. No chest pain or shortness of breath. Exam Narrative: WDWN male in NAD skin no rash head ncat lungs clear bilaterally cor reg no rub abd BS+ nontender and soft ext no edema. Right upper arm fistula with good thrill and bruit in the cephalic vein. Objective Data Vital Signs Vital Signs: Vital Signs - 24 hr 03/09/25 12:04 03/09/25 13:54 03/09/25 16:01 Temperature 96.9 F L Pulse Rate 70 74 73 Respiratory Rate 20 Blood Pressure 130/63 Pulse Oximetry 95 Oxygen Delivery Fraction of Inspired Oxygen 03/09/25 20:00 03/09/25 21:11 03/09/25 21:32 Temperature 98.2 F Pulse Rate 73 72 77 Respiratory Rate 20 16 Blood Pressure 141/61 H Pulse Oximetry 92 95 Oxygen Delivery Room Air Fraction of Inspired Oxygen 03/09/25 23:12 03/10/25 00:00 03/10/25 02:35 Temperature Pulse Rate 70 70 71 Respiratory Rate Blood Pressure Pulse Oximetry 92 93 Oxygen Delivery CPAP CPAP Fraction of Inspired Oxygen 03/10/25 04:00 03/10/25 04:45 03/10/25 06:00 Temperature 98.7 F Pulse Rate 70 70 88 Respiratory Rate 16 Blood Pressure 144/74 H Pulse Oximetry 92 94 Oxygen Delivery BiPAP Fraction of Inspired Oxygen 03/10/25 08:28 03/10/25 08:28 03/10/25 10:00 Temperature Pulse Rate 97 97 Respiratory Rate 20 Blood Pressure Pulse Oximetry 97 Oxygen Delivery Room Air Fraction of Inspired Oxygen 21 Intake/Output Intake/Output: Intake & Output 03/07/25 03/08/25 03/09/25 03/10/25 23:59 23:59 23:59 23:59 Intake Total 1210 930 240 Output Total 250 2050 1700 600 Balance -250 -840 -770 -360 Meds/Results Medications: Active Medications Generic Name Dose Route Start Last Admin Trade Name Freq PRN Reason Stop Dose Admin Alprazolam 0.25 mg 03/07/25 19:41 03/08/25 20:01 Alprazolam (*Crx) 0.25 Mg Tablet PO 0.25 mg BID PRN Administration anxiety Amlodipine Besylate 10 mg 03/07/25 21:00 03/10/25 10:00 Amlodipine Besylate 10 Mg Tablet PO 10 mg Q12HR NICOLLE Administration Aspirin 81 mg 03/08/25 09:00 03/10/25 10:01 Aspirin 81 Mg Enteric Tablet PO 81 mg QAM NICOLLE Administration Bumetanide 1 mg 03/11/25 09:00 Bumetanide Inj 1 Mg/4 Ml Vial IV PUSH DAILY [facility] Epoetin Guevara-epbx 10,000 units 03/09/25 09:00 03/09/25 10:21 Epoetin Guevara-Epbx 10,000 Units/Ml Vial SUB-Q 10,000 units TUTHSA@09 NICOLLE Administration Finasteride 5 mg 03/08/25 09:00 03/10/25 10:00 Finasteride 5 Mg Tablet PO 5 mg QAM NICOLLE Administration Fluticasone Propionate 2 spray 03/08/25 13:50 03/10/25 09:59 Fluticasone Propionate 0.05% Na Spr 16 Gm Btl (*Bkc) NASAL 2 spray QAM NICOLLE Administration Fluticasone/Umeclidinium/Vilanterol 1 puff 03/08/25 08:00 03/10/25 08:28 Fluticasone/Umeclidin/Vilanter 100-62.5-25 Mcg Ellipta INHALATION 1 puff DAILYRT NICOLLE Administration Gabapentin 300 mg 03/08/25 09:00 03/10/25 10:01 Gabapentin 300 Mg Capsule PO 300 mg BID NICOLLE Administration Guaifenesin 600 mg 03/08/25 09:00 03/10/25 10:00 Guaifenesin 12 Hr 600 Mg Tabcr PO 600 mg Q12HR NICOLLE Administration Hydroxychloroquine Sulfate 200 mg 03/08/25 09:00 03/10/25 10:00 Hydroxychloroquine Sulfate 200 Mg Tablet PO 200 mg DAILY NICOLLE Administration Iron Sucrose 200 mg/ Sodium 110 mls @ 220 mls/hr 03/10/25 11:00 Chloride IVPB 03/14/25 09:29 QAM NICOLLE Lactulose 10 gm 03/07/25 19:41 Lactulose 20 Gm/30 Ml Udc PO BID PRN constipation Metoprolol Succinate 100 mg 03/08/25 09:00 03/10/25 10:00 Metoprolol Succinate Ext Rel 100 Mg Tabcr PO 100 mg QAM NICOLLE Administration Montelukast Sodium 10 mg 03/07/25 21:00 03/09/25 21:23 Montelukast Sodium 10 Mg Tablet PO 10 mg HS NICOLLE Administration Perflutren Lipid Microsphere 0 ml 03/07/25 19:41 Perflutren Lipid Microspheres 1.5 Ml Vial Diluted To 10 Ml Total Volume IV PUSH 03/10/25 19:41 ONCE PRN adequate visualization Protocol Senna/Docusate Sodium 2 tab 03/08/25 09:00 03/10/25 10:01 Senna/Docusate Sodium Tablet PO Not Given BID NICOLLE Simvastatin 10 mg 03/08/25 09:00 03/10/25 10:00 Simvastatin 10 Mg Tablet PO 10 mg DAILY NICOLLE Administration Sodium Bicarbonate 650 mg 03/07/25 21:00 03/10/25 10:03 Sodium Bicarbonate Tab 650 Mg Tablet PO 650 mg Q12HR NICOLLE Administration Tamsulosin HCl 0.4 mg 03/08/25 09:00 03/10/25 10:00 Tamsulosin Hcl 0.4 Mg Capsule PO 0.4 mg QAM NICOLLE Administration Radiology Results: ITS Impressions Chest X-Ray 03/09/25 10:53 IMPRESSION: 1. Small to moderate-sized posterior layering bilateral pleural effusions with associated bibasilar atelectasis and/or pneumonia. 2. Cardiomegaly. Labs Labs: Laboratory Results - last 24 hr 03/09/25 03/10/25 05:28 05:53 WBC 8.0 RBC 2.67 L Hgb 8.5 L Hct 26.8 L MCV 100.4 H MCH 31.8 MCHC 31.7 L RDW 12.5 Plt Count 246 MPV 9.8 Immature Gran % (Auto) 0.4 Neut % (Auto) 77.0 H Lymph % (Auto) 10.[address] [facility] % (Auto) 12.1 H Eos % (Auto) 0.0 Baso % (Auto) 0.5 Lymph # (Auto) 0.[address] [facility] # (Auto) 1.0 H Eos # (Auto) 0.0 Baso # (Auto) 0.0 Abs Immat Gran (auto) 0.03 Absolute Neuts (auto) 6.2 Absolute Nucleated RBC 0.000 Nucleated RBC % 0.0 Sodium 141 Potassium 3.9 Chloride 109 H Carbon Dioxide 20 L Anion Gap 12 BUN 86 H Creatinine 4.47 H Estim Creat Clear Calc 10 Estimated GFR 13 L Glucose 84 Calcium 9.1 Phosphorus 5.6 H Magnesium 2.1 Total Bilirubin 0.8 AST 38 ALT 25 Alkaline Phosphatase 68 Total Protein 6.0 L Albumin 3.5 Hep B Core Total Ab Non-reactive
[2025-03-10] MEDS: IRON SUCROSE COMPLEX 200 MG in SODIUM CHLORIDE 0.9% IV 100 ML 220 MG IVPB (11:17)
--- NOTE | 2025-03-10 13:49 | P.PNIM_ITS ---
Progress Note: A&P Assessment and Plan (1) Acute exacerbation of CHF (congestive heart failure): Qualifiers: Heart failure type: systolic Qualified Code(s): I50.23 - Acute on chronic systolic (congestive) heart failure Code(s): I50.9 - Heart failure, unspecified Status: Acute Assessment and Plan: - BNP >30,000 - most recent echo (05/2024): LV systolic function mildly globally reduced, estimated EF 45-50%, diastolic function is normal. See report for full details. - currently on: Bumex 1 mg daily, will continue as Bumex 1 mg IV b.i.d. - monitor I&Os and daily weights - trend renal function recheck echo with worsened EF down to 30-35% severely globally reduced systolic function. Moderate to severe mitral valve regurgitation and moderate tricuspid regurgitation and moderate pulmonary hypertension. was hypoxic in the pcp office needing oxygen supplementation Cardiology consultation. Patient on beta-alli. Not on DANIELLE inhibitor/ARB due to renal failure Apparently echo from December also 30% per Cardiology no (2) CKD (chronic kidney disease): Qualifiers: Chronic kidney disease stage: unspecified stage Qualified Code(s): N18.9 - Chronic kidney disease, unspecified Code(s): N18.9 - Chronic kidney disease, unspecified Status: Chronic Assessment and Plan: - creatinine 3.86 and GFR 15, previously 4.63 and GFR 12 02/20 - trend renal function - trend electrolytes, correct as needed fistula in right arm placed 3 weeks ago renal consultation Creatinine bumped up with diuresis. Hold IV diuresis. Oral diuretics per Renal (3) COPD (chronic obstructive pulmonary disease): Qualifiers: COPD type: COPD with acute exacerbation Qualified Code(s): J44.1 - Chronic obstructive pulmonary disease with (acute) exacerbation Code(s): J44.9 - Chronic obstructive pulmonary disease, unspecified Status: Chronic Assessment and Plan: - DuoNebs p.r.n. - continue Trelegy add mucinex (4) Erythropoietin deficiency anemia: Code(s): D63.1 - Anemia in chronic kidney disease Status: Acute Assessment and Plan: - Hgb 8.6, previously 9.7 on 02/20 - transfuse if <7 - monitor (5) Essential (primary) hypertension: Code(s): I10 - Essential (primary) hypertension Status: Chronic Assessment and Plan: - chronic, currently 111/73 - continue home medications: Amlodipine, Metoprolol - monitor (6) Obstructive sleep apnea: Code(s): G47.33 - Obstructive sleep apnea (adult) (pediatric) Status: Chronic Assessment and Plan: - continue home CPAP (7) Acute hypoxic respiratory failure: Code(s): J96.01 - Acute respiratory failure with hypoxia Status: Acute Assessment and Plan: needing oxygen supplementation 6l in the pcp office He is off oxygen now cotninue to monitor Plan Diet: Heart healthy GI Prophylaxis: Not currently indicated DVT Prophylaxis: SCDs IV fluids: None Lines/Tubes: Peripheral IV Code Status: Full code Subjective Date/time seen: 03/10/25 13:49 Interval history: Overnight events. Breathing has improved. No leg swelling. No chest pain. Labs reviewed. Review of Systems Review of Systems: All systems reviewed & are unremarkable except as noted in HPI and below Exam Narrative: GENERAL: The patient is well developed, not in acute distress HEENT: Nonicteric sclerae, PERRLA, EOMI. Oropharynx clear. Moist mucous membranes. Conjunctivae appear well perfused. CHEST: Chest wall is nontender. HEART: Regular rate and rhythm without murmur, rubs, or gallops LUNGS: Coarse breath sounds bilaterally, no wheezes, no respiratory distress ABDOMEN: Soft, positive bowel sounds, non-tender, no organomegaly. SKIN: No rash, no excessive bruising, petechiae, or purpura. NEUROLOGIC: Cranial nerves II-XII intact, alert and oriented x 3, no gross motor deficits EXTREMITIES: no edema, cyanosis or clubbing Objective Data Vital Signs Vital Signs: Vital Signs - 24 hr 03/09/25 13:54 03/09/25 16:01 03/09/25 20:00 Temperature 96.9 F L Pulse Rate 74 73 73 Respiratory Rate 20 Blood Pressure 130/63 Pulse Oximetry 95 Oxygen Delivery Fraction of Inspired Oxygen 03/09/25 21:11 03/09/25 21:32 03/09/25 23:12 Temperature 98.2 F Pulse Rate 72 77 70 Respiratory Rate 20 16 Blood Pressure 141/61 H Pulse Oximetry 92 95 92 Oxygen Delivery Room Air CPAP Fraction of Inspired Oxygen 03/10/25 00:00 03/10/25 02:35 03/10/25 04:00 Temperature Pulse Rate 70 71 70 Respiratory Rate Blood Pressure Pulse Oximetry 93 Oxygen Delivery CPAP Fraction of Inspired Oxygen 03/10/25 04:45 03/10/25 06:00 03/10/25 08:28 Temperature 98.7 F Pulse Rate 70 88 Respiratory Rate 16 Blood Pressure 144/74 H Pulse Oximetry 92 94 97 Oxygen Delivery BiPAP Room Air Fraction of Inspired Oxygen 21 03/10/25 08:28 03/10/25 10:00 Temperature Pulse Rate 97 97 Respiratory Rate 20 Blood Pressure Pulse Oximetry Oxygen Delivery Fraction of Inspired Oxygen Intake/Output Intake/Output: Intake & Output 03/07/25 03/08/25 03/09/25 03/10/25 23:59 23:59 23:59 23:59 Intake Total 1210 930 240 Output Total 250 2050 1700 600 Balance -250 -840 -770 -360 Meds/Results Medications: Active Medications Generic Name Dose Route Start Last Admin Trade Name Freq PRN Reason Stop Dose Admin Alprazolam 0.25 mg 03/07/25 19:41 03/08/25 20:01 Alprazolam (*Crx) 0.25 Mg Tablet PO 0.25 mg BID PRN Administration anxiety Amlodipine Besylate 10 mg 03/07/25 21:00 03/10/25 10:00 Amlodipine Besylate 10 Mg Tablet PO 10 mg Q12HR NICOLLE Administration Aspirin 81 mg 03/08/25 09:00 03/10/25 10:01 Aspirin 81 Mg Enteric Tablet PO 81 mg QAM NICOLLE Administration Bumetanide 1 mg 03/10/25 17:00 Bumetanide 1 Mg Tablet PO BID NICOLLE Epoetin Guevara-epbx 10,000 units 03/09/25 09:00 03/09/25 10:21 Epoetin Guevara-Epbx 10,000 Units/Ml Vial SUB-Q 10,000 units TUTHSA@09 NICOLLE Administration Finasteride 5 mg 03/08/25 09:00 03/10/25 10:00 Finasteride 5 Mg Tablet PO 5 mg QAM NICOLLE Administration Fluticasone Propionate 2 spray 03/08/25 13:50 03/10/25 09:59 Fluticasone Propionate 0.05% Na Spr 16 Gm Btl (*Bkc) NASAL 2 spray QAM [facility] Administration Fluticasone/Umeclidinium/Vilanterol 1 puff 03/08/25 08:00 03/10/25 08:28 Fluticasone/Umeclidin/Vilanter 100-62.5-25 Mcg Ellipta INHALATION 1 puff DAILYRT NICOLLE Administration Gabapentin 300 mg 03/08/25 09:00 03/10/25 10:01 Gabapentin 300 Mg Capsule PO 300 mg BID NICOLLE Administration Guaifenesin 600 mg 03/08/25 09:00 03/10/25 10:00 Guaifenesin 12 Hr 600 Mg Tabcr PO 600 mg Q12HR NICOLLE Administration Hydroxychloroquine Sulfate 200 mg 03/08/25 09:00 03/10/25 10:00 Hydroxychloroquine Sulfate 200 Mg Tablet PO 200 mg DAILY NICOLLE Administration Iron Sucrose 200 mg/ Sodium 110 mls @ 220 mls/hr 03/10/25 11:00 03/10/25 11:17 Chloride IVPB 03/14/25 09:29 220 mls/hr QAM NICOLLE Administration Lactulose 10 gm 03/07/25 19:41 Lactulose 20 Gm/30 Ml Udc PO BID PRN constipation Metoprolol Succinate 100 mg 03/08/25 09:00 03/10/25 10:00 Metoprolol Succinate Ext Rel 100 Mg Tabcr PO 100 mg QAM NICOLLE Administration Montelukast Sodium 10 mg 03/07/25 21:00 03/09/25 21:23 Montelukast Sodium 10 Mg Tablet PO 10 mg HS NICOLLE Administration Perflutren Lipid Microsphere 0 ml 03/07/25 19:41 Perflutren Lipid Microspheres 1.5 Ml Vial Diluted To 10 Ml Total Volume IV PUSH 03/10/25 19:41 ONCE PRN adequate visualization Protocol Senna/Docusate Sodium 2 tab 03/08/25 09:00 03/10/25 10:01 Senna/Docusate Sodium Tablet PO Not Given BID NICOLLE Simvastatin 10 mg 03/08/25 09:00 03/10/25 10:00 Simvastatin 10 Mg Tablet PO 10 mg DAILY NICOLLE Administration Sodium Bicarbonate 1,300 mg 03/10/25 18:00 Sodium Bicarbonate Tab 650 Mg Tablet PO BIDPC NICOLLE Tamsulosin HCl 0.4 mg 03/08/25 09:00 03/10/25 10:00 Tamsulosin Hcl 0.4 Mg Capsule PO 0.4 mg QAM NICOLLE Administration Radiology Results: ITS Impressions Chest X-Ray 03/09/25 10:53 IMPRESSION: 1. Small to moderate-sized posterior layering bilateral pleural effusions with associated bibasilar atelectasis and/or pneumonia. 2. Cardiomegaly. Labs Labs: Laboratory Results - last 24 hr 03/09/25 03/10/25 05:28 05:53 WBC 8.0 RBC 2.67 L Hgb 8.5 L Hct 26.8 L MCV 100.4 H MCH 31.8 MCHC 31.7 L RDW 12.5 Plt Count 246 MPV 9.8 Immature Gran % (Auto) 0.4 Neut % (Auto) 77.0 H Lymph % (Auto) 10.0 L [place] % (Auto) 12.1 H Eos % (Auto) 0.0 Baso % (Auto) 0.5 Lymph # (Auto) 0.80 L [place] # (Auto) 1.0 H Eos # (Auto) 0.0 Baso # (Auto) 0.0 Abs Immat Gran (auto) 0.03 Absolute Neuts (auto) 6.2 Absolute Nucleated RBC 0.000 Nucleated RBC % 0.0 Sodium 141 Potassium 3.9 Chloride 109 H Carbon Dioxide 20 L Anion Gap 12 BUN 86 H Creatinine 4.47 H Estim Creat Clear Calc 10 Estimated GFR 13 L Glucose 84 Calcium 9.1 Phosphorus 5.6 H Magnesium 2.1 Total Bilirubin 0.8 AST 38 ALT 25 Alkaline Phosphatase 68 Total Protein 6.0 L Albumin 3.5 Hep B Core Total Ab Non-reactive
[2025-03-10] MEDS: SODIUM BICARBONATE TAB 650 MG TABLET 1300 MG PO (17:10)
[2025-03-10] MEDS: BUMETANIDE 1 MG TABLET PO (17:10)
[2025-03-10] MEDS: ALPRAZolam (*CRX) 0.25 MG TABLET PO (20:49)
[2025-03-10] MEDS: MONTELUKAST SODIUM 10 MG TABLET PO (20:50)
[2025-03-11] VITALS (10 sets, daily range): BP systolic 130–140; BP diastolic 50–62; PULSE 69–112; RESP 16–20; TEMP 36.2–36.4; O2SAT 91–95
[2025-03-11 06:31] LABS: Hematocrit 27.2 % (42.0-52.0); Hemoglobin 8.7 g/dL (14.0-18.0); Mean Corpuscular Hemoglobin 32.2 pg (26-34); Mean Corpuscular Volume 100.7 fl (80-100); Mean Platelet Volume 9.8 fl (7.4-10.4); Platelet Count Result 232 k/mm3 (150-375); Red Cell Distribution Width 12.5 % (11.5-14.5); White Blood Count 7.6 K/mm3 (4.5-10.0)
[2025-03-11 06:41] LABS: Albumin Level 3.3 g/dL (3.5-5.1); Anion Gap 11 mmol/L (4-12); Blood Urea Nitrogen 92 mg/dL (9-20); Calcium 8.8 mg/dL (8.4-10.2); Carbon Dioxide 21 mmol/L (22-30); Chloride 106 mmol/L (98-107); Estimated CRCL calculation 10 ml/min; Estimated Glomerular Filt Rate 13; Glucose 71 mg/dL (65-110); Phosphorus 5.5 mg/dL (2.5-4.5); Potassium 3.5 mmol/L (3.4-5.0); Sodium 138 mmol/L (137-145)
[2025-03-11] MEDS: guaiFENesin 12 HR 600 MG TABCR PO (08:13)
[2025-03-11] MEDS: TAMSULOSIN HCL 0.4 MG CAPSULE PO (08:13)
[2025-03-11] MEDS: ASPIRIN 81 MG ENTERIC TABLET PO (08:13)
[2025-03-11] MEDS: GABAPENTIN 300 MG CAPSULE PO (08:13)
[2025-03-11] MEDS: SIMVASTATIN 10 MG TABLET PO (08:13)
[2025-03-11] MEDS: SENNA/DOCUSATE SODIUM TABLET 2 TAB PO (08:13)
[2025-03-11] MEDS: SODIUM BICARBONATE TAB 650 MG TABLET 1300 MG PO (08:13)
[2025-03-11] MEDS: amLODIPine BESYLATE 10 MG TABLET PO (08:13)
[2025-03-11] MEDS: FINASTERIDE 5 MG TABLET PO (08:13)
[2025-03-11] MEDS: METOPROLOL SUCCINATE EXT REL 100 MG TABCR PO (08:14)
[2025-03-11] MEDS: HYDROXYCHLOROQUINE SULFATE 200 MG TABLET PO (08:15)
[2025-03-11] MEDS: BUMETANIDE 1 MG TABLET PO (08:15)
[2025-03-11] MEDS: FLUTICASONE PROPIONATE 0.05% NA SPR 16 GM BTL (*BKC) 2 SPRAY NASAL (08:17)
[2025-03-11] MEDS: FLUTICASONE/UMECLIDIN/VILANTER 100-62.5-25 MCG ELLIPTA 1 PUFF INHALATION (08:58)
[2025-03-11] MEDS: IRON SUCROSE COMPLEX 200 MG in SODIUM CHLORIDE 0.9% IV 100 ML 220 MG IVPB (09:05)
--- NOTE | 2025-03-11 10:07 | P.PNCA_ITS ---
Progress Note: A&P Assessment and Plan (1) Acute exacerbation of CHF (congestive heart failure): Qualifiers: Heart failure type: systolic Qualified Code(s): I50.23 - Acute on chronic systolic (congestive) heart failure Code(s): I50.9 - Heart failure, unspecified Status: Acute Assessment and Plan: He is a worsening cardiomyopathy as well as moderate multivalvular disease. This is all complicated by the fact he has severe end-stage renal disease. Approaching dialysis but not quite there. Ideally we had wanting to perform a cardiac catheterization but in order to avoid dialysis, this has been deferred for now. Bumex decreased to 1mg p.o. b.i.d. Given his severe renal failure, cannot give spironolactone and Entresto. Would need to talk to Nephrology. In many ways, his volume status will be much easier to treat once he initiate dialysis. Also at that time could use some other medications and complete the workup for his worsening cardiomyopathy. (2) Bilateral carotid artery stenosis: Code(s): I65.23 - Occlusion and stenosis of bilateral carotid arteries Status: Acute Assessment and Plan: Moderate disease bilaterally. Continue statin and aspirin (3) Essential (primary) hypertension: Code(s): I10 - Essential (primary) hypertension Status: Chronic Assessment and Plan: Borderline controlled (4) Stage 4 chronic kidney disease: Code(s): N18.4 - Chronic kidney disease, stage 4 (severe) Status: Chronic Assessment and Plan: Followed by Dr. Downey. Creatinine stable at 4.48 today. Bumex has been decreased to 1mg p.o. twice daily. (5) Pacemaker: Code(s): Z95.0 - Presence of cardiac pacemaker Status: Acute Assessment and Plan: Function normally at last office check Plan Recommendations and plan discussed with Hospitalist. Possible discharge today if OK with nephrology. Subjective Date/time seen: 03/11/25 10:07 Interval history: 84-year-old with cardiomyopathy, renal failure, constipation Date of service 03/10/2025: Feeling a little bit better today. Less short of breath. No swelling. No chest pain Date of service 03/11/2025: Feeling much better. Denies any shortness of breat h, swelling. Abdominal distention is improved. Review of Systems Review of Systems: All systems reviewed & are unremarkable except as noted in HPI and below Constitutional: Constitutional: Denies difficulty sleeping and Denies excessive sweating Eyes: Eyes: Denies blurry vision ENT: Reports Normal hearing present Cardiovascular: Cardiovascular: Denies chest pain and Reports dyspnea Respiratory: Respiratory: Reports dyspnea Gastrointestinal: Gastrointestinal: Denies abdominal pain Genitourinary: Genitourinary: Denies hematuria Musculoskeletal: Musculoskeletal: Denies back pain Integumentary/Breasts: Skin/Breast: Denies breast pain Neurologic: Reports Normal hearing present and Denies Abnormal speech present Psychiatric: Psychiatric: Denies anxiety Endocrine: Endocrine: Denies excessive sweating Hematologic/Lymphatic: Hematologic/Lymphatic: Denies easy bleeding Allergic/Immunologic: Allergic/Immunologic: Denies GI upset with certain foods Exam Narrative: Alert oriented appears stated age Const: General: comfortable and no acute distress HENMT: Face/Nose/Sinus: Normal nares present Mouth: Yes moist mucous membranes Eyes: General: appearance normal, both eyes and all related structures Sclera: sclerae normal Neck: Neck: supple and no JVD Chest: Other: No reproducible chest wall pain to palpation Resp: Effort & Inspection: normal respiratory effort Auscultation: diminished lung sounds Cardio: Rate: regular rate Heart sounds: Murmur heart sound present GI: Inspection: non-distended Skin: General skin exam: normal color Neuro: Cranial nerves: Yes Normal hearing present Speech: normal speech and No Abnormal speech present Sensory Exam: normal sensation Extrem: General: no edema Psych: Mental Status: mental status grossly normal Affect: normal affect Objective Data Vital Signs Vital Signs: Vital Signs - 24 hr 03/10/25 12:04 03/10/25 14:00 03/10/25 14:10 Temperature 35.7 C L Pulse Rate 70 85 Respiratory Rate 16 Blood Pressure 128/76 Pulse Oximetry 92 Oxygen Delivery Room Air 03/10/25 16:00 03/10/25 20:00 03/10/25 20:49 Temperature 36.3 C L Pulse Rate 70 71 73 Respiratory Rate 16 Blood Pressure 126/55 L Pulse Oximetry 93 Oxygen Delivery 03/11/25 00:00 03/11/25 00:05 03/11/25 04:00 Temperature Pulse Rate 70 69 78 Respiratory Rate Blood Pressure Pulse Oximetry 93 Oxygen Delivery CPAP 03/11/25 05:48 03/11/25 08:14 03/11/25 09:00 Temperature 36.4 C Pulse Rate 71 70 Respiratory Rate 16 Blood Pressure 140/62 Pulse Oximetry 92 91 Oxygen Delivery Room Air 03/11/25 09:00 Temperature Pulse Rate 94 Respiratory Rate 20 Blood Pressure Pulse Oximetry Oxygen Delivery Intake/Output Intake/Output: Intake & Output 03/08/25 03/09/25 03/10/25 03/11/25 23:59 23:59 23:59 23:59 Intake Total 9366 821 2693 236 Output Total 2050 1700 1150 1275 Balance -840 -618 230 -3987 Meds/Results Medications: Active Medications Generic Name Dose Route Start Last Admin Trade Name Freq PRN Reason Stop Dose Admin Alprazolam 0.25 mg 03/07/25 19:41 03/10/25 20:49 Alprazolam (*Crx) 0.25 Mg Tablet PO 0.25 mg BID PRN Administration anxiety Amlodipine Besylate 10 mg 03/07/25 21:00 03/11/25 08:13 Amlodipine Besylate 10 Mg Tablet PO 10 mg Q12HR NICOLLE Administration Aspirin 81 mg 03/08/25 09:00 03/11/25 08:13 Aspirin 81 Mg Enteric Tablet PO 81 mg QAM NICOLLE Administration Bumetanide 1 mg 03/10/25 17:00 03/11/25 08:15 Bumetanide 1 Mg Tablet PO 1 mg BID NICOLLE Administration Epoetin Guevara-epbx 10,000 units 03/09/25 09:00 03/09/25 10:21 Epoetin Guevara-Epbx 10,000 Units/Ml Vial SUB-Q 10,000 units TUTHSA@09 NICOLLE Administration Finasteride 5 mg 03/08/25 09:00 03/11/25 08:13 Finasteride 5 Mg Tablet PO 5 mg QAM NICOLLE Administration Fluticasone Propionate 2 spray 03/08/25 13:50 03/11/25 08:17 Fluticasone Propionate 0.05% Na Spr 16 Gm Btl (*Bkc) NASAL 2 spray QAM NICOLLE Administration Fluticasone/Umeclidinium/Vilanterol 1 puff 03/08/25 08:00 03/11/25 08:58 Fluticasone/Umeclidin/Vilanter 100-62.5-25 Mcg Ellipta INHALATION 1 puff DAILYRT NICOLLE Administration Gabapentin 300 mg 03/08/25 09:00 03/11/25 08:13 Gabapentin 300 Mg Capsule PO 300 mg BID NICOLLE Administration Guaifenesin 600 mg 03/08/25 09:00 03/11/25 08:13 Guaifenesin 12 Hr 600 Mg Tabcr PO 600 mg Q12HR NICOLLE Administration Hydroxychloroquine Sulfate 200 mg 03/08/25 09:00 03/11/25 08:15 Hydroxychloroquine Sulfate 200 Mg Tablet PO 200 mg DAILY NICOLLE Administration Iron Sucrose 200 mg/ Sodium 110 mls @ 220 mls/hr 03/10/25 11:00 03/11/25 09:05 Chloride IVPB 03/14/25 09:29 220 mls/hr QAM NICOLLE Administration Lactulose 10 gm 03/07/25 19:41 Lactulose 20 Gm/30 Ml Udc PO BID PRN constipation Metoprolol Succinate 100 mg 03/08/25 09:00 03/11/25 08:14 Metoprolol Succinate Ext Rel 100 Mg Tabcr PO 100 mg QAM NICOLLE Administration Montelukast Sodium 10 mg 03/07/25 21:00 03/10/25 20:50 Montelukast Sodium 10 Mg Tablet PO 10 mg HS NICOLLE Administration Senna/Docusate Sodium 2 tab 03/08/25 09:00 03/11/25 08:13 Senna/Docusate Sodium Tablet PO 2 tab BID NICOLLE Administration Simvastatin 10 mg 03/08/25 09:00 03/11/25 08:13 Simvastatin 10 Mg Tablet PO 10 mg DAILY NICOLLE Administration Sodium Bicarbonate 1,300 mg 03/10/25 18:00 03/11/25 08:13 Sodium Bicarbonate Tab 650 Mg Tablet PO 1,300 mg BIDPC NICOLLE Administration Tamsulosin HCl 0.4 mg 03/08/25 09:00 03/11/25 08:13 Tamsulosin Hcl 0.4 Mg Capsule PO 0.4 mg QAM NICOLLE Administration Radiology Results: ITS Impressions Chest X-Ray 03/09/25 10:53 IMPRESSION: 1. Small to moderate-sized posterior layering bilateral pleural effusions with associated bibasilar atelectasis and/or pneumonia. 2. Cardiomegaly. Labs Labs: Laboratory Results - last 24 hr 03/11/25 05:47 WBC 7.6 RBC 2.70 L Hgb 8.7 L Hct 27.2 L MCV 100.7 H MCH 32.2 MCHC 32.0 RDW 12.5 Plt Count 232 MPV 9.8 Sodium 138 Potassium 3.5 Chloride 106 Carbon Dioxide 21 L Anion Gap 11 BUN 92 H Creatinine 4.48 H Estim Creat Clear Calc 10 Estimated GFR 13 L Glucose 71 Calcium 8.8 Phosphorus 5.5 H Albumin 3.3 L Quality VTE Prophylaxis VTE prophylaxis: mechanical ordered
--- NOTE | 2025-03-11 10:52 | P.PNNP_ITS ---
Progress Note: A&P Assessment and Plan (1) Stage 4 chronic kidney disease: Code(s): N18.4 - Chronic kidney disease, stage 4 (severe) Status: Chronic Assessment and Plan: * baseline creatinine running around 3.6 - 4.0mg/dl in 6 - 8 months * however, has been as high as 4.6mg/dl (late January 2025) * this causes him to bounce between CKD stage 4 and stage 5 * due to biopsy proven hypertensive nephrosclerosis with recent contributions from his heart failure and associated diuretic use * s/p AV fistula placement by Dr. 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 * attended dialysis education and has chosen in-center hemodialysis when the time comes for dialysis initiation * creatinine up from baseline but not unexpected given IV diuresis * volume/fluid status appears optimized * transitioned to oral bumex * follow trend of repeat labs and UOP (2) Acute hypoxic respiratory failure: Code(s): J96.01 - Acute respiratory failure with hypoxia Status: Acute Assessment and Plan: * resolved * as noted at PCP's office prior to presentation ER * off supplemental oxygen when seen * multifactorial: * CHF exacerbation * volume/fluid overload * valvular heart disease * known history of COPD * underlying ARTURO * relative anemia * other(?) * transitioned to oral bumex bid * follow respiratory status (3) Acute exacerbation of CHF (congestive heart failure): Qualifiers: Heart failure type: systolic Qualified Code(s): I50.23 - Acute on chronic systolic (congestive) heart failure Code(s): I50.9 - Heart failure, unspecified Status: Acute Assessment and Plan: * clinical improvement noted * as suggested by history and exam * BNP >30,000 * admission CXR with mild interstitial edema with bilateral pleural effusions * repeat Echo on 03/08 noted (with worsened EF and valvular disease noted): * left ventricular systolic function is severely globally reduced, estimated at 30-35% * left ventricular diastolic function is abnormal * right ventricular systolic function is reduced * moderate aortic valve sclerosis * mild aortic valve regurgitation * mitral valve has a moderately calcified annulus * moderate to severe mitral valve regurgitation * moderate tricuspid valve regurgitation * moderate pulmonary hypertension, estimated pulmonary arterial systolic pressure is 51 mmHg * Cardiology following with recommendations noted * monitor I&Os and daily weights (4) Metabolic acidosis: Code(s): E87.20 - Acidosis, unspecified Status: Chronic Assessment and Plan: * due to advanced CKD * attempting to compensate with oral sodium bicarbonate * dose increased to 1300mg bid * follow trend of CO2 levels (5) Anemia: Qualifiers: Anemia type: unspecified type Qualified Code(s): D64.9 - Anemia, unspecified Code(s): D64.9 - Anemia, unspecified Status: Chronic Assessment and Plan: * due to CKD and known history of MGUS * improvement noted * anemia studies with iron deficiency * getting IV venofer and Epogen * follow trend of H/H (6) Essential (primary) hypertension: Code(s): I10 - Essential (primary) hypertension Status: Chronic Assessment and Plan: * reasonable control * follow trend of hemodynamics (7) Obstructive sleep apnea: Code(s): G47.33 - Obstructive sleep apnea (adult) (pediatric) Status: Chronic Assessment and Plan: * continue home CPAP (8) Generalized weakness: Code(s): R53.1 - Weakness Status: Acute Assessment and Plan: * suspect due to acute medical issues as noted above * PT/OT as tolerated Not opposed to discharge from renal perspective if otherwise medically stable -- he can follow-up with Dr. Downey in the office for ongoing CKD management. Will continue to follow. L Subjective Date/time seen: 03/11/25 10:52 Interval history: Follow-up for chronic kidney disease. Chart reviewed since last seen -- breathing /respiratory status has significantly improved at the time of my visit; off supplemental oxygen therapy; IV diuretics transitioned to oral and remains in negative fluid balance by I/Os; creatinine/renal function elevated from baseline (not unexpected given previous IV diuresis) but no other critical electrolytes; no apparent distress voiced when seen. Exam 2 Narrative: General: elderly but WD/WN male in NAD Heart: normal S1 and S2; no rub Lungs: clear anteriorly, decreased at bases Abdomen: soft, nontender, nondistended, positive bowel sounds Extremities: no cyanosis or clubbing; no edema Skin: warm and dry Objective Data Vital Signs Vital Signs: Vital Signs Temp Pulse Resp BP Pulse Ox O2 Del Method 03/11/25 09:00 94 20 03/11/25 09:00 91 Room Air 03/11/25 08:14 70 03/11/25 08:00 Room Air 03/11/25 05:48 97.6 F 71 16 140/62 92 05/19/25 04:00 78 03/11/25 00:05 69 93 CPAP 03/11/25 00:00 70 03/10/25 20:49 97.4 F L 73 16 126/55 L 93 03/10/25 20:00 71 03/10/25 16:00 70 03/10/25 14:10 Room Air 03/10/25 14:00 96.3 F L 85 16 128/76 92 Intake/Output Intake/Output: Intake & Output 03/08/25 03/09/25 03/10/25 03/11/25 23:59 23:59 23:59 23:59 Intake Total 4770 382 7842 236 Output Total 2050 1700 1150 1275 Balance -840 -741 230 1039 Meds/Results Medications: Active Medications Generic Name Dose Route Start Last Admin Trade Name Freq PRN Reason Stop Dose Admin Alprazolam 0.25 mg 03/07/25 19:41 03/10/25 20:49 Alprazolam (*Crx) 0.25 Mg Tablet PO 0.25 mg BID PRN Administration anxiety Amlodipine Besylate 10 mg 03/07/25 21:00 03/11/25 08:13 Amlodipine Besylate 10 Mg Tablet PO 10 mg Q12HR NICOLLE Administration Aspirin 81 mg 03/08/25 09:00 03/11/25 08:13 Aspirin 81 Mg Enteric Tablet PO 81 mg QAM NICOLLE Administration Bumetanide 1 mg 03/10/25 17:00 03/11/25 08:15 Bumetanide 1 Mg Tablet PO 1 mg BID NICOLLE Administration Epoetin Guevara-epbx 10,000 units 03/09/25 09:00 03/09/25 10:21 Epoetin Guevara-Epbx 10,000 Units/Ml Vial SUB-Q 10,000 units TUTHSA@09 NICOLLE Administration Finasteride 5 mg 03/08/25 09:00 03/11/25 08:13 Finasteride 5 Mg Tablet PO 5 mg QAM NICOLLE Administration Fluticasone Propionate 2 spray 03/08/25 13:50 03/11/25 08:17 Fluticasone Propionate 0.05% Na Spr 16 Gm Btl (*Bkc) NASAL 2 spray QAM NICOLLE Administration Fluticasone/Umeclidinium/Vilanterol 1 puff 03/08/25 08:00 03/11/25 08:58 Fluticasone/Umeclidin/Vilanter 100-62.5-25 Mcg Ellipta INHALATION 1 puff DAILYRT NICOLLE Administration Gabapentin 300 mg 03/08/25 09:00 03/11/25 08:13 Gabapentin 300 Mg Capsule PO 300 mg BID NICOLLE Administration Guaifenesin 600 mg 03/08/25 09:00 03/11/25 08:13 Guaifenesin 12 Hr 600 Mg Tabcr PO 600 mg Q12HR NICOLLE Administration Hydroxychloroquine Sulfate 200 mg 03/08/25 09:00 03/11/25 08:15 Hydroxychloroquine Sulfate 200 Mg Tablet PO 200 mg DAILY NICOLLE Administration Iron Sucrose 200 mg/ Sodium 110 mls @ 220 mls/hr 03/10/25 11:00 03/11/25 09:05 Chloride IVPB 03/14/25 09:29 220 mls/hr QAM NICOLLE Administration Lactulose 10 gm 03/07/25 19:41 Lactulose 20 Gm/30 Ml Udc PO BID PRN constipation Metoprolol Succinate 100 mg 03/08/25 09:00 03/11/25 08:14 Metoprolol Succinate Ext Rel 100 Mg Tabcr PO 100 mg QAM NICOLLE Administration Montelukast Sodium 10 mg 03/07/25 21:00 03/10/25 20:50 Montelukast Sodium 10 Mg Tablet PO 10 mg HS NICOLLE Administration Senna/Docusate Sodium 2 tab 03/08/25 09:00 03/11/25 08:13 Senna/Docusate Sodium Tablet PO 2 tab BID NICOLLE Administration Simvastatin 10 mg 03/08/25 09:00 03/11/25 08:13 Simvastatin 10 Mg Tablet PO 10 mg DAILY NICOLLE Administration Sodium Bicarbonate 1,300 mg 03/10/25 18:00 03/11/25 08:13 Sodium Bicarbonate Tab 650 Mg Tablet PO 1,300 mg BIDPC NICOLLE Administration Tamsulosin HCl 0.4 mg 03/08/25 09:00 03/11/25 08:13 Tamsulosin Hcl 0.4 Mg Capsule PO 0.4 mg QAM NICOLLE Administration Radiology Results: ITS Impressions Chest X-Ray 03/09/25 10:53 IMPRESSION: 1. Small to moderate-sized posterior layering bilateral pleural effusions with associated bibasilar atelectasis and/or pneumonia. 2. Cardiomegaly. Labs Labs: Laboratory Tests 03/11/25 05:47 03/11/25 05:47 Calcium 8.8 Phosphorus 5.5 H Albumin 3.3 L
--- NOTE | 2025-03-11 14:25 | PM.DS ---
DS: Admitting Diagnosis Discharge Date 03/11/2025 Admitting Diagnosis Shortness of breath DS: Discharge Diagnosis Discharge Diagnosis (1) Acute exacerbation of CHF (congestive heart failure): Qualifiers: Heart failure type: systolic Qualified Code(s): I50.23 - Acute on chronic systolic (congestive) heart failure Code(s): I50.9 - Heart failure, unspecified Status: Acute (2) CKD (chronic kidney disease): Qualifiers: Chronic kidney disease stage: unspecified stage Qualified Code(s): N18.9 - Chronic kidney disease, unspecified Code(s): N18.9 - Chronic kidney disease, unspecified Status: Chronic (3) COPD (chronic obstructive pulmonary disease): Qualifiers: COPD type: COPD with acute exacerbation Qualified Code(s): J44.1 - Chronic obstructive pulmonary disease with (acute) exacerbation Code(s): J44.9 - Chronic obstructive pulmonary disease, unspecified Status: Chronic (4) 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 See report for full details. - currently on: Bumex 1 mg daily, will continue as Bumex 1 mg IV b.i.d. - monitor I&Os and daily weights - trend renal function recheck echo with worsened EF down to 30-35% severely globally reduced systolic function. Moderate to severe mitral valve regurgitation and moderate tricuspid regurgitation and moderate pulmonary hypertension. was hypoxic in the pcp office needing oxygen supplementation Cardiology consultation. Patient on beta-anton. Not on DANIELLE inhibitor/ARB due to renal failure Apparently echo from December also 30% per Cardiology no new changes. Bumex dose has increased from 1 mg daily to twice a day. # CKD (chronic kidney disease): - creatinine 3.86 and GFR 15, previously 4.63 and GFR 12 02/20 - trend renal function - trend electrolytes, correct as needed fistula in right arm placed 3 weeks ago renal consultation Creatinine bumped up with diuresis. Hold IV diuresis. Oral diuretics per Renal and has been switched to 1 mg b.i.d.. Continue to monitor renal function as an outpatient basis. # COPD (chronic obstructive pulmonary disease): - DuoNebs p.r.n. - continue Trelegy add mucinex # Erythropoietin deficiency anemia: - Hgb 8.6, previously 9.7 on 02/20 - transfuse if <7 - monitor # Essential (primary) hypertension: - continue home medications: Amlodipine, Metoprolol - monitor # Obstructive sleep apnea: - continue home CPAP # Acute hypoxic respiratory failure: needing oxygen supplementation 6l in the pcp office He is off oxygen now cotninue to monitor # Diet: Heart healthy # GI Prophylaxis: Not currently indicated # DVT Prophylaxis: SCDs # Code Status: Full code Time Spent with Patient Time attestation: Total time spent providing and/or coordinating discharge services: 35 minutes Exam Narrative: GENERAL: The patient is well developed, not in acute distress HEENT: Nonicteric sclerae, PERRLA, EOMI. Oropharynx clear. Moist mucous membranes. Conjunctivae appear well perfused. CHEST: Chest wall is nontender. HEART: Regular rate and rhythm without murmur, rubs, or gallops LUNGS: Coarse breath sounds bilaterally, no wheezes, no respiratory distress ABDOMEN: Soft, positive bowel sounds, non-tender, no organomegaly. SKIN: No rash, no excessive bruising, petechiae, or purpura. NEUROLOGIC: Cranial nerves II-XII intact, alert and oriented x 3, no gross motor deficits EXTREMITIES: no edema, cyanosis or clubbing DS: Data Data Completed and Pending Completed studies during hospitalization: Exam Type: CA echo doppler color flow Complete two-dimensional, color flow and Doppler transthoracic echocardiogram is performed. Staff Referring Physician: Issa Henry MD Board [employer] Secretary: Rosalinda Orozco Attending Provider: Rita Allen Summary 1. Complete two-dimensional, color flow and Doppler transthoracic echocardiogram is performed. 2. Left ventricular chamber dimension is severely enlarged. 3. Left ventricular systolic function is severely globally reduced, estimated at 30-35. 4. There is moderate concentric increased left ventricular wall thickness. 5. The left ventricular diastolic function is abnormal. 6. E/e' 23 is elevated. 7. Right ventricular systolic function is reduced. 8. Linear artifact in right ventricle suggestive of catheter(s), pacemaker lead(s), or ICD lead(s). 9. Left atrial chamber dimension is severely enlarged. 10. Right atrial chamber dimension is moderately enlarged. 11. Linear artifact in the right atrium suggestive of catheter(s), pacemaker lead(s), or ICD lead(s). 12. There is moderate aortic valve sclerosis. 13. There is mild aortic valve regurgitation. 14. The mitral valve has a moderately calcified annulus. 15. There is moderate to severe mitral valve regurgitation. 16. There is moderate tricuspid valve regurgitation. 17. Moderate pulmonary hypertension, estimated pulmonary arterial systolic pressure is 51 mmHg. 18. Dilated inferior vena cava with >50% collapse upon inspiration consistent with elevated right atrial pressure, 10 mmHg. Left Ventricle E/e' 23 is elevated. Left ventricular chamber dimension is severely enlarged. Left ventricular systolic function is severely globally reduced, estimated at 30-35. There is moderate concentric increased left ventricular wall thickness. The left ventricular diastolic function is abnormal. Right Ventricle Linear artifact in right ventricle suggestive of catheter(s), pacemaker lead(s), or ICD lead(s). Right ventricular chamber dimension is normal. Right ventricular systolic function is reduced. Left Atria Left atrial chamber dimension is severely enlarged. Right Atria Linear artifact in the right atrium suggestive of catheter(s), pacemaker lead(s), or ICD lead(s). Right atrial chamber dimension is moderately enlarged. Aortic Valve The aortic valve is trileaflet. There is moderate aortic valve sclerosis. There is no aortic valve stenosis. There is mild aortic valve regurgitation. Pulmonic Valve There is no pulmonic regurgitation. Mitral Valve The mitral valve has a moderately calcified annulus. There is no mitral valve stenosis. There is moderate to severe mitral valve regurgitation. Tricuspid Valve There is moderate tricuspid valve regurgitation. Moderate pulmonary hypertension, estimated pulmonary arterial systolic pressure is 51 mmHg. Pericardium/Pleural There is no pericardial effusion. Inferior Vena Cava Dilated inferior vena cava with >50% collapse upon inspiration consistent with elevated right atrial pressure, 10 mmHg. Aorta The aortic root size at the sinus of Valsalva is normal. Labs on day of discharge: Labs from last 24 hours 03/11/25 05:47 WBC 7.6 RBC 2.70 L Hgb 8.7 L Hct 27.2 L MCV 100.7 H MCH 32.2 MCHC 32.0 RDW 12.5 Plt Count 232 MPV 9.8 Sodium 138 Potassium 3.5 Chloride 106 Carbon Dioxide 21 L Anion Gap 11 BUN 92 H Creatinine 4.48 H Estim Creat Clear Calc 10 Estimated GFR 13 L Glucose 71 Calcium 8.8 Phosphorus 5.5 H Albumin 3.3 L Preliminary micro results at discharge 03/07/25 19:53 Blood Culture - Preliminary Blood Imaging Radiologist's impression: ITS Impressions Chest X-Ray 03/07/25 15:25 Impression: 1: Mild interstitial edema with bilateral pleural effusions. Chest X-Ray 03/09/25 10:53 IMPRESSION: 1. Small to moderate-sized posterior layering bilateral pleural effusions with associated bibasilar atelectasis and/or pneumonia. 2. Cardiomegaly. Discharge Plan Discharge Attending physician on discharge: Ramin Mercedes Consulting providers: Pedro Rahman; Maged Fowler Discharging Clinician: Ramin Mercedes Anticipated Discharge Date/Time: 03/11/25 14:31 Patient Disposition: Home Activity: as tolerated Diet: heart healthy, renal and low sodium Patient Instructions: Antibiotic Form, Heart Failure (GEN) Patient Language: Hebrew Stand Alone Forms: General Discharge Information Follow-up/Referrals: Maged Fowler MD [Physician] - 2 Weeks Pedro Rahman MD [Physician] - 2 Weeks Vel Gilliam MD [Primary Care Provider] - 1 Week Discharge Medications: New fluticasone propionate 50 mcg/actuation [place],Suspension 2 spray intranasal QAM Qty: 30 0RF Continued amlodipine 10 mg tablet 10 mg PO .q12hr gabapentin 300 mg capsule 300 mg PO BID tamsulosin 0.4 mg Capsule 0.4 mg PO QAM Qty: 30 1RF albuterol sulfate 90 mcg/actuation HFA aerosol inhaler 2 puff INHALATION Q6H PRN (Reason: Shortness Of Breath) hydroxychloroquine 200 mg tablet 200 mg PO DAILY Trelegy Ellipta 100-62.5-25 mcg blister with device 1 inh INHALATION .QD montelukast 10 mg tablet 10 mg PO HS aspirin 81 mg Tablet,Delayed Release (Dr/Ec) 81 mg PO QAM Qty: 30 0RF metoprolol succinate 100 mg tablet extended release 24 hr 100 mg PO QAM simvastatin 10 mg tablet See Rx Instructions .ROUTE .COMPLEX Qty: 90 3RF Dose Instruction: TAKE 1 TABLET BY MOUTH EVERY DAY Rx Instructions: TAKE 1 TABLET BY MOUTH EVERY DAY sodium bicarbonate 650 mg tablet See Rx Instructions .ROUTE .COMPLEX Qty: 180 3RF Dose Instruction: TAKE 1 TABLET BY MOUTH TWICE A DAY Rx Instructions: TAKE 1 TABLET BY MOUTH TWICE A DAY sennosides-docusate sodium [Senokot-S] 8.6-50 mg tablet 2 tab-cap PO BID Qty: 120 2RF finasteride [Proscar] 5 mg tablet 5 mg PO QAM Qty: 90 1RF alprazolam 0.25 mg tablet 0.25 mg PO BID PRN (Reason: anxiety) Qty: 60 0RF Rx Instructions: Tolerates this, has been on before lactulose 10 gram/15 mL solution 15 ml PO BID PRN (Reason: constipation) Qty: 1200 0RF Changed bumetanide 1 mg tablet 1 mg PO Q12H Qty: 180 0RF Other Ambulatory Orders: Basic Metabolic Panel (Routine) Timeframe: 1 Week Location: Determined by Patient Ordered By: Ramin Mercedes Complete Blood Count with Diff (Routine) Timeframe: 1 Week Location: Determined by Patient Ordered By: Ramin Mercedes Date of admission: 03/07/25 16:41 Primary Care Provider: Vel Gilliam Admitting Provider: Rita Allen Attending physician on admission: Rita Allen Condition: Improved Hospitalist MIPS Heart Failure (Exclusion) Patient has history of Heart Transplant or Left Ventricular Assistive Device?: No IF YES, STOP HERE Heart Failure (Qualifier) Patient has current or prior documentation of LVEF less than or equal to 40%, or mod/servere depressed LVSF?: Yes IF NO, STOP HERE If Yes, Heart Failure (Qualifier) Patient was prescribed or already taking an Angiotensin-Converting Enzyme (DANIELLE) Inhibitor, or Antiotensin Receptor Anton (ARB): No Patient was prescribed or already taking bisoprolol, carvedilol, or sustained release metoprolol succinate: Yes If Medications not prescribed/taking Reason patient not prescribed/taking DANIELLE or ARB: Medical reasons: allergy, intolerance, contraindication or other
== END 2025-03-11 16:10 | disposition home or self-care (01) | DRG 291 ==
LOC: ANHED 16:50 → ANHIMU 16:58 → ANH3MEDSUR 03-11 14:32 → ANHIMU 03-13 14:09
PROVIDERS: Emergency Medicine; Internal Medicine Nephrology; Student in an Organized Health Care Education/Training Program; Admitting Provider Internal Medicine; Emergency Provider Emergency Medicine; PCP Family Medicine; Visit Provider Internal Medicine
DX: I13.0 Hypertensive heart and chronic kidney disease with heart failure and stage 1 through stage 4 chronic kidney disease, or unspecified chronic kidney disease (principal); I50.23 Acute on chronic systolic (congestive) heart failure; J96.01 Acute respiratory failure with hypoxia; J44.1 Chronic obstructive pulmonary disease with (acute) exacerbation; N18.4 Chronic kidney disease, stage 4 (severe); E87.20 Acidosis, unspecified; D63.1 Anemia in chronic kidney disease; F17.210 Nicotine dependence, cigarettes, uncomplicated; G47.33 Obstructive sleep apnea (adult) (pediatric); I65.23 Occlusion and stenosis of bilateral carotid arteries; I43 Cardiomyopathy in diseases classified elsewhere; I73.9 Peripheral vascular disease, unspecified; M06.9 Rheumatoid arthritis, unspecified; M35.00 Sjogren syndrome, unspecified; M32.9 Systemic lupus erythematosus, unspecified; Z95.0 Presence of cardiac pacemaker; Z85.46 Personal history of malignant neoplasm of prostate; Z96.653 Presence of artificial knee joint, bilateral; Z79.82 Long term (current) use of aspirin
CPT/HCPCS: 36415; 71045; 71046; 80053; 80069; 82607; 82728; 82746; 83540; 83550; 83735; 83880; 84100; 85025; 85027; 86704; 86706; 87040; 87340; 87641; 93005; 93306; 94640; 96374; 97161; 97165; 99285; A9270; J1756; J1939; Q5105

== ENCOUNTER 2025-10-13 23:59 | Inpatient (IN) | payer OTHER, SELFPAY ==
--- NOTE | ~2025-10-13 | XR_ITS ---
EXAMINATION: XR chest 1V portable DATE: 10/14/2025 00:55 INDICATION: Shortness of breath TECHNIQUE: frontal view of the chest was obtained. COMPARISON: Chest radiograph dated 03/09/2025 FINDINGS: Interval increase in a now moderate-sized right pleural effusion with opacity right mid and lower lung zone which could represent associated atelectasis or pneumonia. Interval decrease in a now small left pleural effusion with improved aeration in the left midlung zone. Residual atelectasis and/or pneumonia in the left lower lung zone. No pneumothorax. Cardiomegaly. Atherosclerotic aorta. Dual lead pacemaker/AICD seen with leads projecting over the expected locations of the right atrium and right ventricle. IMPRESSION: 1. Increased moderate-sized right and decreased now small left pleural effusions with associated atelectasis and/or pneumonia in the right mid to lower and left lower lung zones. 2. Cardiomegaly. Reviewed, dictated and finalized at location A. ORATE TRAVEL MANAGER IMPRESSION: 1. Increased moderate-sized right and decreased now small left pleural effusion s with associated atelectasis and/or pneumonia in the right mid to lower and le ft lower lung zones. 2. Cardiomegaly.
--- NOTE | ~2025-10-13 | XR_ITS ---
XR chest 1V portable 10/15/2025 13:49 Indication: Reevaluation of pleural effusion. Procedure: AP portable chest Comparison: Comparison to multiple prior studies sequentially, with oldest reviewed study dated 03/07/2025. Findings: Borderline heart size. There is bilateral airspace disease which has progressed particularly on the right. There are bilateral pleural effusions, right greater than left. No pneumothorax. Pacemaker leads are stable. There is atherosclerosis of the aorta. No acute osseous abnormality. Impression: 1: Progression of bilateral airspace disease, compatible with pneumonia. Reviewed, dictated and finalized at location O. PHONY ENGINEER Impression: 1: Progression of bilateral airspace disease, compatible with pneumonia.
--- NOTE | ~2025-10-13 | US_ITS ---
EXAMINATION: US thoracentesis DATE: 10/14/2025 14:13 INDICATION: pleural effusion TECHNIQUE: The procedure and its risks and benefits were discussed with the patient. Potential risks discussed included bleeding, infection, and pneumothorax. The patient understood the risks and agreed to proceed. The skin was prepped and draped in sterile fashion. 1% lidocaine was used for local anes thesia. Under ultrasound guidance, a 5 Fr catheter with trochar was advanced into the right pleural effusion. Fluid was aspirated. The catheter was removed, and a dressing was applied. There were no immediate complications. FINDINGS: Ultrasound images demonstrate a large right pleural effusion and the catheter within the fluid. IMPRESSION: 1. Successful ultrasound-guided thoracentesis yielding 1100 mL of clear reddish breanna-colored fluid. Reviewed, dictated and finalized at location A. IMPRESSION: 1. Successful ultrasound-guided thoracentesis yielding 1100 mL of clear reddis h breanna-colored fluid.
--- NOTE | ~2025-10-13 | XR_ITS ---
[id number] 10/14/2025 14:13 Indication: Postthoracentesis Procedure: AP portable chest Comparison: CT chest and chest x-ray dated 10/14/2025 Findings: Moderate right and small left pleural effusions. Cardiomegaly. Pacemaker leads are stable. Improved pulmonary edema. No pneumothorax. No acute osseous abnormality. Impression: 1: Cardiomegaly with improved pulmonary edema. 2: Moderate right and small left pleural effusions. No pneumothorax identified post procedure. Reviewed, dictated and finalized at location O. KER WIRER Impression: 1: Cardiomegaly with improved pulmonary edema. 2: Moderate right and small left pleural effusions. No pneumothorax identified post procedure.
--- NOTE | ~2025-10-13 | CT_ITS ---
EXAMINATION: CT diagnostic chest wo con DATE: 10/14/2025 01:49 INDICATION: pleural effusion TECHNIQUE: Computed tomography (CT) of the chest was performed without intravenous contrast. Additional 3D reconstructions utilizing coronal maximum intensity projection (MIP) were performed. Automated exposure control and iterative reconstruction technique were employed. The dose-length product was 27 3.87 mGy-cm. COMPARISON: None FINDINGS: Mild emphysema. Small left and moderate to large right posterior layering pleural effusions with dependent compressive atelectasis in both lungs including complete collapse of the right lower lobe. There is likely secondary caudal depression of the right hemidiaphragm. No pneumonia, pulmonary edema or other pulmonary infiltrates in the aerated portions of the lungs. Mild cardiomegaly. Atherosclerotic coronary artery calcification. No pericardial effusion. Dual lead pacemaker with lead tips at the right atrial appendage and along the anterior wall of the right ventricle. Thoracic aorta is normal in caliber. No pathologically enlarged thoracic lymphadenopathy. There are multiple bilateral renal lesions several of which including the largest measuring up to 3.5 cm in the upper pole the right kidney with fluid attenuation consistent with simple cyst. There are also several in both kidneys with intermediate attenuation the largest measuring 3.8 cm in the right kidney which remain indeterminate for st atistically most likely proteinaceous/hemorrhagic cyst versus solid enhancing neoplasm. 2.6 cm left adrenal nodule which is increased from [address] dated 12/11/2023 at which time it demonstrated low attenuation characteristic of an adrenal adenoma. Moderate to severe thoracic spondylosis with chronic mild anterior wedging of a few mid to lower thoracic vertebral bodies. IMPRESSION: 1. Mild emphysema with small left and moderate to large right pleural effusions with secondary compressive atelectasis including collapse of the right middle and lower lobes. 2. Multiple chronic bilateral renal lesions many of low attenuation consistent with simple cysts and several in each kidney which remain indeterminate statistically most likely represent proteinaceous/hemorrhagic cysts although differential would include solid neoplasm. Could consider further evaluation with pre and postcontrast CT or MRI. Reviewed, dictated and finalized at location A. RAL SERVICE PRACTITIONER/EMBALMER IMPRESSION: 1. Mild emphysema with small left and moderate to large right pleural effusions with secondary compressive atelectasis including collapse of the right middle and lower lobes. 2. Multiple chronic bilateral renal lesions many of low attenuation consistent with simple cysts and several in each kidney which remain indeterminate statist ically most likely represent proteinaceous/hemorrhagic cysts although different ial would include solid neoplasm. Could consider further evaluation with pre an d postcontrast CT or MRI.
[2025-10-13 23:51] VITALS: BP 122/65; PULSE 80; RESP 20; TEMP 36.6; O2SAT 88
[2025-10-14] VITALS (50 sets, daily range): BP systolic 104–158; BP diastolic 53–91; PULSE 70–96; RESP 17–38; TEMP 36.1–36.7; O2SAT 90–100; BMI 23.9
--- NOTE | 2025-10-14 00:07 | ECG_ITS ---
Test Date: 2025-10-14 00:14:17 Measurements Intervals [place] Rate: 70 P: 196 HI: 361 QRS: -41 QRSD: 178 T: 131 QT: 467 QTc: 505 Interpretive Statements ELECTRONIC ATRIAL PACEMAKER ELECTRONIC VENTRICULAR PACEMAKER BASELINE ARTIFACT- I, II, III, AVR, AVL, AVF, V1-V6 NO FURTHER INTERPRETATION IS POSSIBLE ATYPICAL ECG Compared to ECG 03/07/2025 15:05:34 No significant changes Electronically Signed On 10-14-2025 06:43:57 BILLING REP by Christopher Coley D.O.
--- OUTSIDE RECORDS SUMMARY | 2025-10-14 00:11 | XMS_ITS | Encounter Summary ---
Author Organization [facility] Address [address] [place] [address] Care Team Providers Care Mattress Finisher Name Role Phone Vel Gilliam MD Primary Care Provider [phone] Encounter Details Date Type Department Care Team (Late st Contact Info) Description 08/26/2004 Outpatient Historical [facility] Family Medicine [facility] [address] [facility] [address] [place] [address] [place] [address] [address] [facility]. [address] [place] [address] Social History Tobacco Use Types Packs/Day Years Used Date Smoking Tobacco: Never Assessed Sex and Gender Information Value Date Recorded Sex Assigned at Not on file Legal Sex Male 4:23 AM BASKET OPERATOR Gender Identity Not on file Sexual Orientation Not on file documented as of this encounter Last Filed Vital Signs Vital Sign Reading Time Taken Comments Blood Pressure 162/70 08/26/2004 2:30 PM BASKET OPERATOR Pulse 52 08/26/2004 2:30 PM BASKET OPERATOR Temperature 36.4 C (97.5 F) 08/26/2004 2:30 PM BASKET OPERATOR Respiratory Rate 16 08/26/2004 2:30 PM BASKET OPERATOR Oxygen Saturation - - Inhaled Oxygen Concentration - - Weight 89.4 kg (197 lb) 08/26/2004 2:30 PM BASKET OPERATOR Height - - Body Mass Index - - documented in this encounter Plan of Treatment Upcoming Encounters Date Type Department Care Team (Late st Contact Info) Description 11/27/2025 9:45 AM BASKET OPERATOR Office Visit [facility] Oncology and Hematology - [place] [address] [facility] [address] [place] [address] Armond Epstein MD [address] [facility] [address] [place] [address] documented as of this encounter Visit Diagnoses Not on filedocumented in this encounter Care Teams Mattress Finisher Relationship Specialty Start Date End Date Vel Gilliam MD [address] [place] [id number] PCP - General Family Practice 02/14/14 documented as of this encounter
--- OUTSIDE RECORDS SUMMARY | 2025-10-14 00:11 | XMS_ITS | Encounter Summary ---
Author Organization [facility] Address [address] [place] [address] Care Team Providers Care Manager Transition Name Role Phone Vel Gilliam MD Primary Care Provider [phone] Encounter Details Date Type Department Care Team (Late Contact Info) Description 10/07/2005 Outpatient Historical [facility] Family Medicine [facility] [address] [address] [facility] [address] [place] [address] [place] [address] [address] [facility] [place] [address] Social History Tobacco Use Types Packs/Day Years Used Date Smoking Tobacco: Never Assessed Sex and Gender Information Value Date Recorded Sex Assigned at Not on file Legal Sex Male 4:23 AM AUTOCAD DESIGNER Gender Identity Not on file Sexual Orientation Not on file documented as of this encounter Last Filed Vital Signs Vital Sign Reading Time Taken Comments Blood Pressure 150/70 10/07/2005 9:15 AM AUTOCAD DESIGNER Pulse 50 10/07/2005 9:15 AM AUTOCAD DESIGNER Temperature - - Respiratory Rate - - Oxygen Saturation - - Inhaled Oxygen Concentration - - Weight 93 kg (205 lb) 10/07/2005 9:15 AM AUTOCAD DESIGNER Height - - Body Mass Index - - documented in this encounter Plan of Treatment Upcoming Encounters Date Type Department Care Team (Late st Contact Info) Description 11/27/2025 9:45 AM AUTOCAD DESIGNER Office Visit [facility] Oncology and Hematology - [place] [address] [place] [address] Armond Epstein MD [address] [facility] [address] [place] [address] documented as of this encounter Visit Diagnoses Not on filedocumented in this encounter Care Teams Manager Transition Relationship Specialty Start Date End Date Vel Gilliam MD [address] [place] [address] PCP - General Family Practice 02/14/14 documented as of this encounter
--- OUTSIDE RECORDS SUMMARY | 2025-10-14 00:11 | XMS_ITS | Encounter Summary ---
Author Organization [facility] Address [address] [place] [address] Care Team Providers Care Gluer And Wedger Name Role Phone Vel Gilliam MD Primary Care Provider [phone] Encounter Details Date Type Department Care Team (Latest Contact Info) Description 09/14/2006 Outpatient Historical [place] [address] [facility] [place] [address] Pain in Soft Tissues of Limb (Primary Dx) Social History Tobacco Use Types Packs/Day Years Used Date Smoking Tobacco: Never Assessed Sex and Gender Information Value Date Recorded Sex Assigned at Not on file Legal Sex Male 4:23 AM EMERGENCY MEDICAL SERVICE COORDINATOR Gender Identity Not on file Sexual Orientation Not on file documented as of this encounter Plan of Treatment Upcoming Encounters Date Type Department Care Team (Late st Contact Info) Description 11/27/2025 9:45 AM EMERGENCY MEDICAL SERVICE COORDINATOR Office Visit [facility] Oncology and Hematology - [place] [address] [place] [address] Armond Epstein MD [address] [facility] [address] [place] [address] documented as of this encounter Visit Diagnoses Diagnosis Pain in limb- Primary documented in this encounter Care Teams Gluer And Wedger Relationship Specialty Start Date End Date Vel Gilliam MD [address] [place] [address] PCP - General Family Practice 02/14/14 documented as of this encounter
--- OUTSIDE RECORDS SUMMARY | 2025-10-14 00:11 | XMS_ITS | Encounter Summary ---
Author Organization [facility] Address [address] [place] [address] Care Team Providers Care High Heel Builder Name Role Phone Vel Gilliam MD Primary Care Provider [phone] Encounter Details Date Type Department Care Team (Late st Contact Info) Description 12/03/2004 Outpatient Historical [facility] Family Medicine [facility] [address] [address] [facility] [address] [place] [address] [place] [address] [address] [facility] [place] [address] Social History Tobacco Use Types Packs/Day Years Used Date Smoking Tobacco: Never Assessed Sex and Gender Information Value Date Recorded Sex Assigned at Not on file Legal Sex Male 4:23 AM MACHINE STRIPPER CUTTER Gender Identity Not on file Sexual Orientation Not on file documented as of this encounter Last Filed Vital Signs Vital Sign Reading Time Taken Comments Blood Pressure 160/86 12/03/2004 9:45 AM MACHINE STRIPPER CUTTER Pulse 56 12/03/2004 9:45 AM MACHINE STRIPPER CUTTER Temperature - - Respiratory Rate 14 12/03/2004 9:45 AM MACHINE STRIPPER CUTTER Oxygen Saturation - - Inhaled Oxygen Concentration - - Weight 87.7 kg (193 lb 5 oz) 12/03/2004 9:45 AM MACHINE STRIPPER CUTTER Height - - Body Mass Index - - documented in this encounter Plan of Treatment Upcoming Encounters Date Type Department Care Team (Late st Contact Info) Description 11/27/2025 9:45 AM MACHINE STRIPPER CUTTER Office Visit [facility] Oncology and Hematology - [place] [address] [place] [address] Armond Epstein MD [address] [facility] [address] [place] [address] documented as of this encounter Visit Diagnoses Not on filedocumented in this encounter Care Teams High Heel Builder Relationship Specialty Start Date End Date Vel Gilliam MD [address] [place] [address] PCP - General Family Practice 02/14/14 documented as of this encounter
--- OUTSIDE RECORDS SUMMARY | 2025-10-14 00:11 | XMS_ITS | Encounter Summary ---
Author Organization [facility] Address [address] [place] [address] Care Team Providers Care Pleater Hand Name Role Phone Vel Gilliam MD Primary Care Provider [phone] Encounter Details Date Type Department Care Team (Late Contact Info) Description 03/07/2008 Outpatient Historical [facility] Family Medicine [facility] [address] [facility] [address] [place] [address] [place] [address] [facility] [place] [address] Social History Tobacco Use Types Packs/Day Years Used Date Smoking Tobacco: Never Assessed Sex and Gender Information Value Date Recorded Sex Assigned at Not on file Legal Sex Male 4:23 AM INSURANCE ACCOUNT MANAGER Gender Identity Not on file Sexual Orientation Not on file documented as of this encounter Plan of Treatment Upcoming Encounters Date Type Department Care Team (Late st Contact Info) Description 11/27/2025 9:45 AM INSURANCE ACCOUNT MANAGER Office Visit [facility] Oncology and Hematology - [place] [address] [facility] [address] [place] [address] Armond Epstein MD [address] [facility] [address] [place] [address] documented as of this encounter Visit Diagnoses Not on filedocumented in this encounter Care Teams Pleater Hand Relationship Specialty Start Date End Date Vel Gilliam MD [address] [place] [address] PCP - General Family Practice 02/14/14 documented as of this encounter
--- OUTSIDE RECORDS SUMMARY | 2025-10-14 00:11 | XMS_ITS | Encounter Summary ---
Author Organization [facility] Address [address] [place] [address] Care Team Providers Care Chisel Worker Name Role Phone Vel Gilliam MD Primary Care Provider [phone] Encounter Details Date Type Department Care Team (Late st Contact Info) Description 06/13/2007 Orders Only [facility] Family Medicine [facility] [address] [facility] [address] [place] [address] [place] [address] [place] [address] Social History Tobacco Use Types Packs/Day Years Used Date Smoking Tobacco: Never Assessed Sex and Gender Information Value Date Recorded Sex Assigned at Not on file Legal Sex Male 4:23 AM FLIGHT SOFTWARE TEST ENGINEER Gender Identity Not on file Sexual Orientation Not on file documented as of this encounter Progress Notes * Vicente Nino MD - 03/12/2008 1:45 PM CDT TIME:08:56 am PATIENT`S HOME PHONE: PATIENT`S WORK PHONE: PATIENT`S INSURANCE: [employer] WHO TOOK THE CALL: Samaria Lozada M GENERAL INFORMATION PATIENT STATUS: Established Patient. ALTERNATIVE PHONE NUMBER: [phone] WHO CALLED: Patient called. PHARMACY NUMBER: fax [...] 06/13/07 at 04:24 pm. Requested faxed to [facility]. LMOR advising pt...tono Electronically Signed by: Tono eWinstein on Wednesday, June 13, 2007 documented in this encounter Plan of Treatment Upcoming Encounters Date Type Department Care Team (Late st Contact Info) Description 11/27/2025 9:45 AM FLIGHT SOFTWARE TEST ENGINEER Office Visit [facility] Oncology and Hematology - [place] [address] [place] [address] [address] [place] [address] Armond Epstein MD [address] [facility] [address] [place] [address] documented as of this encounter Visit Diagnoses Not on filedocumented in this encounter Care Teams Chisel Worker Relationship Specialty Start Date End Date Vel Gilliam MD [address] [place] [address] PCP - General Family Practice 02/14/14 documented as of this encounter
--- OUTSIDE RECORDS SUMMARY | 2025-10-14 00:11 | XMS_ITS | Encounter Summary ---
Author Organization [facility] Address [address] [place] [address] Care Team Providers Care Zipper Setter Name Role Phone Vel Gilliam MD Primary Care Provider [phone] Encounter Details Date Type Department Care Team (Late Contact Info) Description 07/25/2003 Outpatient Historical [facility] Family Medicine [facility] [address] [address] [facility] [address] [place] [address] [place] [address] [facility] [place] [address] Social History Tobacco Use Types Packs/Day Years Used Date Smoking Tobacco: Never Assessed Sex and Gender Information Value Date Recorded Sex Assigned at Not on file Legal Sex Male 4:23 AM CULINARY WORKER Gender Identity Not on file Sexual Orientation Not on file documented as of this encounter Plan of Treatment Upcoming Encounters Date Type Department Care Team (Late st Contact Info) Description 11/27/2025 9:45 AM CULINARY WORKER Office Visit [facility] Oncology and Hematology - [place] [address] [facility] [address] [place] [address] Armond Epstein MD [address] [facility] [address] [place] [address] documented as of this encounter Visit Diagnoses Not on filedocumented in this encounter Care Teams Zipper Setter Relationship Specialty Start Date End Date Vel Gilliam MD [address] [place] [address] PCP - General Family Practice 02/14/14 documented as of this encounter
--- OUTSIDE RECORDS SUMMARY | 2025-10-14 00:11 | XMS_ITS | Encounter Summary ---
Author Organization [facility] Address [address] [place] [address] Care Team Providers Care Plastic Sheeting Cutter Name Role Phone Vel Gilliam MD Primary Care Provider [phone] Encounter Details Date Type Department Care Team (Late Contact Info) Description 09/08/2006 Outpatient Historical [facility] Family Medicine [facility] [address] [facility] [address] [place] [address] Abril Hsieh MD [facility] [place] [place] [address] Social History Tobacco Use Types Packs/Day Years Used Date Smoking Tobacco: Never Assessed Sex and Gender Information Value Date Recorded Sex Assigned at Not on file Legal Sex Male 4:23 AM LAPEL PADDER Gender Identity Not on file Sexual Orientation Not on file documented as of this encounter Last Filed Vital Signs Vital Sign Reading Time Taken Comments Blood Pressure 140/74 09/08/2006 3:10 PM LAPEL PADDER Pulse 56 09/08/2006 3:10 PM LAPEL PADDER Temperature - - Respiratory Rate - - Oxygen Saturation - - Inhaled Oxygen Concentration - - Weight 92.3 kg (203 lb 8 oz) 09/08/2006 3:10 PM LAPEL PADDER Height - - Body Mass Index - - documented in this encounter Plan of Treatment Upcoming Encounters Date Type Department Care Team (Late st Contact Info) Description 11/27/2025 9:45 AM LAPEL PADDER Office Visit [facility] Oncology and Hematology - [place] [address] [place] [address] Armond Epstein MD [address] [facility] [address] [place] [address] documented as of this encounter Visit Diagnoses Not on filedocumented in this encounter Care Teams Plastic Sheeting Cutter Relationship Specialty Start Date End Date Vel Gilliam MD [address] [place] [address] PCP - General Family Practice 02/14/14 documented as of this encounter
--- OUTSIDE RECORDS SUMMARY | 2025-10-14 00:11 | XMS_ITS | Encounter Summary ---
Author Organization [facility] Address [address] [place] [address] Care Team Providers Care Auto Body Straightener Name Role Phone Vel Gilliam MD Primary Care Provider [phone] Encounter Details Date Type Department Care Team (Late Contact Info) Description 09/12/2007 Outpatient Historical [facility] Family Medicine [facility] [address] [address] [facility] [address] [place] [address] [place] [address] [address] [facility] [place] [address] Social History Tobacco Use Types Packs/Day Years Used Date Smoking Tobacco: Never Assessed Sex and Gender Information Value Date Recorded Sex Assigned at Not on file Legal Sex Male 4:23 AM FRAUD MANAGER Gender Identity Not on file Sexual Orientation Not on file documented as of this encounter Last Filed Vital Signs Vital Sign Reading Time Taken Comments Blood Pressure 142/68 09/12/2007 1:00 PM FRAUD MANAGER Pulse 80 09/12/2007 1:00 PM FRAUD MANAGER Temperature - - Respiratory Rate - - Oxygen Saturation - - Inhaled Oxygen Concentration - - Weight 93 kg (205 lb) 09/12/2007 1:00 PM FRAUD MANAGER Height - - Body Mass Index - - documented in this encounter Plan of Treatment Upcoming Encounters Date Type Department Care Team (Late st Contact Info) Description 11/27/2025 9:45 AM FRAUD MANAGER Office Visit [facility] Oncology and Hematology - [place] [address] [place] [address] Armond Epstein MD [address] [facility] [address] [place] [address] documented as of this encounter Visit Diagnoses Not on filedocumented in this encounter Care Teams Auto Body Straightener Relationship Specialty Start Date End Date Vel Gilliam MD [address] [place] [address] PCP - General Family Practice 02/14/14 documented as of this encounter
--- OUTSIDE RECORDS SUMMARY | 2025-10-14 00:11 | XMS_ITS | Encounter Summary ---
Author Organization [facility] Address [address] [place] [address] Care Team Providers Care Photocopying Machine Operator Name Role Phone Vel Gilliam MD Primary Care Provider [phone] Encounter Details Date Type Department Care Team (Late st Contact Info) Description 09/12/2007 Orders Only [facility] Family Medicine [facility] [address] [address] [facility] [address] [place] [address] [place] [address] [address] [facility] [place] [address] Social History Tobacco Use Types Packs/Day Years Used Date Smoking Tobacco: Never Assessed Sex and Gender Information Value Date Recorded Sex Assigned at Not on file Legal Sex Male 4:23 AM FLIGHT HOSTESS Gender Identity Not on file Sexual Orientation Not on file documented as of this encounter Progress Notes * Gavin Mcconnell MD - 03/07/2008 6:59 PM CDT NURSE NAME: Joshua PariChad WEIGHT: 205lbs. BLOOD PRESSURE: 136/74. Right [...] Regularexercise was encouraged. LAB ORDERS: Order number: [id number] Test Ordered: LIPID PANEL 7600 401.1-HYPERTENSION ESSENTIAL [...] Electronically Signed by: Gavin Mcconnell MD on , September 14, 2007 documented in this encounter Plan of Treatment Upcoming Encounters Date Type Department Care Team (Late st Contact Info) Description 11/27/2025 9:45 AM FLIGHT HOSTESS Office Visit [facility] Oncology and Hematology - [place] [address] [facility] [address] [place] [address] Armond Epstein MD [address] [facility] [address] [place] [address] documented as of this encounter Visit Diagnoses Not on filedocumented in this encounter Care Teams Photocopying Machine Operator Relationship Specialty Start Date End Date Vel Gilliam MD [address] [place] [address] PCP - General Family Practice 02/14/14 documented as of this encounter
--- OUTSIDE RECORDS SUMMARY | 2025-10-14 00:11 | XMS_ITS | Encounter Summary ---
Author Organization [facility] Address [address] [place] [address] Care Team Providers Care Associate Store Manager Name Role Phone Vel Gilliam MD Primary Care Provider [phone] Encounter Details Date Type Department Care Team (Late st Contact Info) Description 08/04/2005 Outpatient Historical [facility] Support Serv. (Adt Cardiology-[facility]) [address] [place] [phone] Vicente Zaragoza MD NO ADDRESS ON FILE Social History Tobacco Use Types Packs/Day Years Used Date Smoking Tobacco: Never Assessed Sex and Gender Information Value Date Recorded Sex Assigned at Not on file Legal Sex Male 4:23 AM TRIMMING CASER Gender Identity Not on file Sexual Orientation Not on file documented as of this encounter Plan of Treatment Upcoming Encounters Date Type Department Care Team (Late st Contact Info) Description 11/27/2025 9:45 AM TRIMMING CASER Office Visit [facility] Oncology and Hematology - [place] [address] [facility] [address] [place] [address] Armond Epstein MD [address] [facility] [address] [place] [address] documented as of this encounter Visit Diagnoses Not on filedocumented in this encounter Care Teams Associate Store Manager Relationship Specialty Start Date End Date Vel Gilliam MD [address] [place] [address] PCP - General Family Practice 02/14/14 documented as of this encounter
--- OUTSIDE RECORDS SUMMARY | 2025-10-14 00:11 | XMS_ITS | Encounter Summary ---
Author Organization [facility] Address [address] [place] [address] Care Team Providers Care Straw Hat Brim Cutter Operator Name Role Phone Vel Gilliam MD Primary Care Provider [phone] Encounter Details Date Type Department Care Team (Late Contact Info) Description 05/12/2006 Outpatient Historical [facility] Family Medicine [facility] [address] [address] [facility] [address] [place] [address] [place] [address] [address] [facility] [place] [address] Social History Tobacco Use Types Packs/Day Years Used Date Smoking Tobacco: Never Assessed Sex and Gender Information Value Date Recorded Sex Assigned at Not on file Legal Sex Male 4:23 AM BREAD SLICER MACHINE Gender Identity Not on file Sexual Orientation [...] st Contact Info) Description 11/27/2025 9:45 AM BREAD SLICER MACHINE Office Visit [facility] Oncology and Hematology - [place] [address] [place] [phone] Armond Epstein MD [address] [facility] [address] [place] [address] documented as of this encounter Visit Diagnoses Not on filedocumented in this encounter Care Teams Straw Hat Brim Cutter Operator Relationship Specialty Start Date End Date Vel Gilliam MD [address] [place] [address] PCP - General Family Practice 02/14/14 documented as of this encounter
--- OUTSIDE RECORDS SUMMARY | 2025-10-14 00:11 | XMS_ITS | Encounter Summary ---
Author Organization [facility] Address [address] [place] [address] Care Team Providers Care Tree Fruit And Nut Crops Farmer Name Role Phone Vel Gilliam MD Primary Care Provider [phone] Encounter Details Date Type Department Care Team (Late st Contact Info) Description 04/01/2005 Outpatient Historical [facility] Family Medicine [facility] [address] [facility] [address] [place] [address] [place] [address] [address] [facility] [place] [address] Social History Tobacco Use Types Packs/Day Years Used Date Smoking Tobacco: Never Assessed Sex and Gender Information Value Date Recorded Sex Assigned at Not on file Legal Sex Male 4:23 AM FIRE SPRINKLER DESIGNER Gender Identity Not on file Sexual [...] st Contact Info) Description 11/27/2025 9:45 AM FIRE SPRINKLER DESIGNER Office Visit [facility] Oncology and Hematology - [place] [address] [place] [address] Armond Epstein MD [address] [facility] [address] [place] [address] documented as of this encounter Visit Diagnoses Not on filedocumented in this encounter Care Teams Tree Fruit And Nut Crops Farmer Relationship Specialty Start Date End Date Vel Gilliam MD [address] [place] [address] PCP - General Family Practice 02/14/14 documented as of this encounter
--- OUTSIDE RECORDS SUMMARY | 2025-10-14 00:11 | XMS_ITS | Encounter Summary ---
Author Organization [facility] Address [address] [place] [address] Care Team Providers Care House Parent Name Role Phone Vel Gilliam MD Primary Care Provider [phone] Encounter Details Date Type Department Care Team (Late Contact Info) Description 03/07/2008 Outpatient Historical [facility] Family Medicine [facility] [address] [address] [facility] [address] [place] [address] [place] [address] [facility] [place] [address] Social History Tobacco Use Types Packs/Day Years Used Date Smoking Tobacco: Never Assessed Sex and Gender Information Value Date Recorded Sex Assigned at Not on file Legal Sex Male 4:23 AM TERADATA ARCHITECT Gender Identity Not on file Sexual Orientation Not on file documented as of this encounter Plan of Treatment Upcoming Encounters Date Type Department Care Team (Late st Contact Info) Description 11/27/2025 9:45 AM TERADATA ARCHITECT Office Visit [facility] Oncology and Hematology - [place] [address] [facility] [address] [place] [address] Armond Epstein MD [address] [facility] [address] [place] [address] documented as of this encounter Visit Diagnoses Not on filedocumented in this encounter Care Teams House Parent Relationship Specialty Start Date End Date Vel Gilliam MD [address] [place] [address] PCP - General Family Practice 02/14/14 documented as of this encounter
--- OUTSIDE RECORDS SUMMARY | 2025-10-14 00:11 | XMS_ITS | Encounter Summary ---
Author Organization [facility] Address [address] [place] [address] Care Team Providers Care Payable Representative Name Role Phone Vel Gilliam MD Primary Care Provider [phone] Encounter Details Date Type Department Care Team (Late Contact Info) Description 07/25/[address] [facility] Family Medicine [facility] [address] [facility] [address] [place] [address] [place] [address] [facility] [place] [address] Social History Tobacco Use Types Packs/Day Years Used Date Smoking Tobacco: Never Assessed Sex and Gender Information Value Date Recorded Sex Assigned at Not on file Legal Sex Male 4:23 AM SNOW REMOVAL/PLOWING Gender Identity Not on file Sexual Orientation Not on file documented as of this encounter Plan of Treatment Upcoming Encounters Date Type Department Care Team (Late st Contact Info) Description 11/27/2025 9:45 AM SNOW REMOVAL/PLOWING Office Visit [facility] Oncology and Hematology - Antonio [address] [facility] [address] [place] [address] Armond Epstein MD [address] [facility] [address] [place] [address] documented as of this encounter Visit Diagnoses Not on filedocumented in this encounter Care Teams Payable Representative Relationship Specialty Start Date End Date Vel Gilliam MD [address] [place] [address] PCP - General Family Practice 02/14/14 documented as of this encounter
--- OUTSIDE RECORDS SUMMARY | 2025-10-14 00:11 | XMS_ITS | Encounter Summary ---
Author Organization [facility] Address [address] [place] [address] Care Team Providers Care Hooker On Name Role Phone Vel Gilliam MD Primary Care Provider [phone] Encounter Details Date Type Department Care Team (Late st Contact Info) Description 02/10/2006 Outpatient Historical [facility] Family Medicine [place] [facility] [address] [facility] [address] [place] [address] [place] [address] [address] [facility] [place] [address] Social History Tobacco Use Types Packs/Day Years Used Date Smoking Tobacco: Never Assessed Sex and Gender Information Value Date Recorded Sex Assigned at Not on file Legal Sex Male 4:23 AM MURAL PAINTER Gender Identity Not on file Sexual Orientation [...] st Contact Info) Description 11/27/2025 9:45 AM MURAL PAINTER Office Visit [facility] Oncology and Hematology - [place] [address] [place] [address] Armond Epstein MD [address] [facility] [address] [place] [address] documented as of this encounter Visit Diagnoses Not on filedocumented in this encounter Care Teams Hooker On Relationship Specialty Start Date End Date Vel Gilliam MD [address] [place] [address] PCP - General Family Practice 02/14/14 documented as of this encounter
--- OUTSIDE RECORDS SUMMARY | 2025-10-14 00:11 | XMS_ITS | Encounter Summary ---
Author Organization [facility] Address [address] [place] [address] Care Team Providers Care Farm Assistant Name Role Phone Vel Gilliam MD Primary Care Provider [phone] Encounter Details Date Type Department Care Team (Late st Contact Info) Description 09/14/2006 Outpatient Historical [facility] Supp Svcs Blood Flow [address] [place] [address] Manish Granado MD NO ADDRESS ON FILE Social History Tobacco Use Types Packs/Day Years Used Date Smoking Tobacco: Never Assessed Sex and Gender Information Value Date Recorded Sex Assigned at Not on file Legal Sex Male 4:23 AM ELECTRICAL AND INSTRUMENT TECHNICIAN Gender Identity Not on file Sexual Orientation Not on file documented as of this encounter Plan of Treatment Upcoming Encounters Date Type Department Care Team (Late st Contact Info) Description 11/27/2025 9:45 AM ELECTRICAL AND INSTRUMENT TECHNICIAN Office Visit [facility] Oncology and Hematology - [place] [address] [facility] [address] [place] [address] Armond Epstein MD [address] [facility] [address] [place] [address] documented as of this encounter Visit Diagnoses Not on filedocumented in this encounter Care Teams Farm Assistant Relationship Specialty Start Date End Date Vel Gillaim MD [address] [place] [address] PCP - General Family Practice 02/14/14 documented as of this encounter
--- OUTSIDE RECORDS SUMMARY | 2025-10-14 00:11 | XMS_ITS | Encounter Summary ---
Author Organization [facility] Address [address] [place] [address] Care Team Providers Care Pitch Flaker Name Role Phone Vel Gilliam MD Primary Care Provider [phone] Encounter Details Date Type Department Care Team (Late st Contact Info) Description 05/12/[address] [facility] Family Medicine [facility] [address] [address] [facility] [address] [place] [address] [place] [address] [address] [facility] [place] [address] Social History Tobacco Use Types Packs/Day Years Used Date Smoking Tobacco: Never Assessed Sex and Gender Information Value Date Recorded Sex Assigned at Not on file Legal Sex Male 4:23 AM HYDRO GENERATION MANAGER Gender Identity Not on file Sexual [...] st Contact Info) Description 11/27/2025 9:45 AM HYDRO GENERATION MANAGER Office Visit [facility] Oncology and Hematology - [place] [address] [place] [address] Armond Epstein MD [address] [facility] [address] [place] [address] documented as of this encounter Visit Diagnoses Not on filedocumented in this encounter Care Teams Pitch Flaker Relationship Specialty Start Date End Date Vel Gilliam MD [address] [place] [address] PCP - General Family Practice 02/14/14 documented as of this encounter
--- OUTSIDE RECORDS SUMMARY | 2025-10-14 00:11 | XMS_ITS | Encounter Summary ---
Author Organization [facility] Address [address] [place] [address] Care Team Providers Care Command Center Officer Name Role Phone Vel Gilliam MD Primary Care Provider [phone] Encounter Details Date Type Department Care Team (Late Contact Info) Description 03/07/2008 Outpatient Historical [facility] Family Medicine [facility] [address] [email or web address] [facility] [address] [place] [address] [place] [address] [facility] [place] [address] Social History Tobacco Use Types Packs/Day Years Used Date Smoking Tobacco: Never Assessed Sex and Gender Information Value Date Recorded Sex Assigned at Not on file Legal Sex Male 4:23 AM PLUMBING INSPECTOR Gender Identity Not on file Sexual Orientation Not on file documented as of this encounter Plan of Treatment Upcoming Encounters Date Type Department Care Team (Late st Contact Info) Description 11/27/2025 9:45 AM PLUMBING INSPECTOR Office Visit [facility] Oncology and Hematology - [place] [address] [facility] [address] [place] [address] Armond Epstein MD [address] [facility] [address] [place] [address] documented as of this encounter Visit Diagnoses Not on filedocumented in this encounter Care Teams Command Center Officer Relationship Specialty Start Date End Date Vel Gilliam MD [address] [place] [address] PCP - General Family Practice 02/14/14 documented as of this encounter
--- OUTSIDE RECORDS SUMMARY | 2025-10-14 00:11 | XMS_ITS | Encounter Summary ---
Author Organization [facility] Address [address] [place] [address] Care Team Providers Care Urban Design Consultant Name Role Phone Vel Gilliam MD Primary Care Provider [phone] Encounter Details Date Type Department Care Team (Late st Contact Info) Description 07/29/2005 Outpatient Historical [facility] Family Medicine [facility] [address] [address] [facility] [address] [place] [address] [place] [address] [address] [facility] [place] [address] Social History Tobacco Use Types Packs/Day Years Used Date Smoking Tobacco: Never Assessed Sex and Gender Information Value Date Recorded Sex Assigned at Not on file Legal Sex Male 4:23 AM PROPAGATOR LABORER Gender Identity Not on file Sexual Orientation [...] st Contact Info) Description 11/27/2025 9:45 AM PROPAGATOR LABORER Office Visit [facility] Oncology and Hematology - [place] [address] [facility] [address] [place] [address] Armond Epstein MD [address] [facility] [address] [place] [address] documented as of this encounter Visit Diagnoses Not on filedocumented in this encounter Care Teams Urban Design Consultant Relationship Specialty Start Date End Date Vel Gilliam MD [address] [place] [address] PCP - General Family Practice 02/14/14 documented as of this encounter
--- OUTSIDE RECORDS SUMMARY | 2025-10-14 00:11 | XMS_ITS | Encounter Summary ---
Author Organization [facility] Address [address] [place] [address] Care Team Providers Care Real Estate Closing Coordinator Name Role Phone Vel Gilliam MD Primary Care Provider [phone] Encounter Details Date Type Department Care Team (Latest Contact Info) Description 12/25/2003 Outpatient Historical [facility] KARLENE Mcc[place]nell, [place] [address] [facility] [place] [address] PAIN IN LIMB (Primary Dx) Social History Tobacco Use Types Packs/Day Years Used Date Smoking Tobacco: Never Assessed Sex and Gender Information Value Date Recorded Sex Assigned at Not on file Legal Sex Male 4:23 AM EFFICIENCY ANALYST Gender Identity Not on file Sexual Orientation Not on file documented as of this encounter Plan of Treatment Upcoming Encounters Date Type Department Care Team (Late st Contact Info) Description 11/27/2025 9:45 AM EFFICIENCY ANALYST Office Visit [facility] Oncology and Hematology - [place] [address] [facility] [address] [place] [address] Armond Epstein MD [address] [facility] [address] [place] [address] documented as of this encounter Visit Diagnoses Diagnosis Pain in limb- Primary documented in this encounter Care Teams Real Estate Closing Coordinator Relationship Specialty Start Date End Date Vel Gilliam MD [address] [place] [address] PCP - General Family Practice 02/14/14 documented as of this encounter
--- OUTSIDE RECORDS SUMMARY | 2025-10-14 00:11 | XMS_ITS | Encounter Summary ---
Author Organization [facility] Address [address] [place] [address] Care Team Providers Care Peoplesoft Consultant Name Role Phone Vel Gilliam MD Primary Care Provider [phone] Encounter Details Date Type Department Care Team (Latest Contact Info) Description 08/04/2005 Outpatient Historical [place] [address] [facility] [place] [address] UNDIAGNOSED CARDIAC MURMURS (Primary Dx) Social History Tobacco Use Types Packs/Day Years Used Date Smoking Tobacco: Never Assessed Sex and Gender Information Value Date Recorded Sex Assigned at Not on file Legal Sex Male 4:23 AM DRAIN TILER Gender Identity Not on file Sexual Orientation Not on file documented as of this encounter Plan of Treatment Upcoming Encounters Date Type Department Care Team (Late st Contact Info) Description 11/27/2025 9:45 AM DRAIN TILER Office Visit [facility] Oncology and Hematology - [place] [address] [place] [address] Armond Epstein MD [address] [facility] [address] [place] [address] documented as of this encounter Visit Diagnoses Diagnosis Undiagnosed cardiac murmurs- Primary documented in this encounter Care Teams Peoplesoft Consultant Relationship Specialty Start Date End Date Vel Gilliam MD [address] [place] [address] PCP - General Family Practice 02/14/14 documented as of this encounter
--- OUTSIDE RECORDS SUMMARY | 2025-10-14 00:11 | XMS_ITS | Encounter Summary ---
Author Organization [facility] Address [address] [place] [address] Care Team Providers Care Radio Intelligence Operator Name Role Phone Vel Gilliam MD Primary Care Provider [phone] Encounter Details Date Type Department Care Team (Late Contact Info) Description 12/25/2003 Outpatient Historical [facility] Family Medicine [facility] [address] [facility] [address] [place] [address] Abril Hsieh MD [facility] [place] [address] Social History Tobacco Use Types Packs/Day Years Used Date Smoking Tobacco: Never Assessed Sex and Gender Information Value Date Recorded Sex Assigned at Not on file Legal Sex Male 4:23 AM THREAD CHECKER Gender Identity Not on file Sexual Orientation Not on file documented as of this encounter Plan of Treatment Upcoming Encounters Date Type Department Care Team (Late Contact Info) Description 11/27/2025 9:45 AM THREAD CHECKER Office Visit [facility] Oncology and Hematology - [place] [address] [place] [address] Armond Epstein MD [address] [facility] [address] [place] [address] documented as of this encounter Visit Diagnoses Not on filedocumented in this encounter Care Teams Radio Intelligence Operator Relationship Specialty Start Date End Date Vel Gilliam MD [address] [place] [address] PCP - General Family Practice 02/14/14 documented as of this encounter
--- OUTSIDE RECORDS SUMMARY | 2025-10-14 00:11 | XMS_ITS | Encounter Summary ---
Author Organization [facility] Address [address] [place] [address] Care Team Providers Care Cesspool Cleaner Name Role Phone Vel Gilliam MD Primary Care Provider Encounter Details Date Type Department Care Team (Late Contact Info) Description 09/02/2004 Outpatient Historical [place] [address] [facility] [place] [address] PERIPH VASCULAR DIS NOS (Primary Dx) Social History Tobacco Use Types Packs/Day Years Used Date Smoking Tobacco: Never Assessed Sex and Gender Information Value Date Recorded Sex Assigned at Not on file Legal Sex Male 4:23 AM PARKING PATROLLER Gender Identity Not on file Sexual Orientation Not on file documented as of this encounter Plan of Treatment Upcoming Encounters Date Type Department Care Team (Late Contact Info) Description 11/27/2025 9:45 AM PARKING PATROLLER Office Visit [facility] Oncology and Hematology - [place] [address] [facility] [address] [place] [address] Armond Epstein MD [address] [facility] [address] [place] [address] documented as of this encounter Visit Diagnoses Diagnosis Peripheral vascular disease, unspecified- Primary documented in this encounter Care Teams Cesspool Cleaner Relationship Specialty Start Date End Date Vel Gilliam MD [address] [place] [address] PCP - General Family Practice 02/14/14 documented as of this encounter
--- OUTSIDE RECORDS SUMMARY | 2025-10-14 00:12 | XMS_ITS | Clinical Summary ---
Author Organization [facility] Address [address] [place] [address] Care Team Providers Care Cabin Man Name Role Phone Vel Gilliam MD Primary Care Provider [phone] Allergies Active Allergy Reactions Criticality Noted Date [...] Take 440 mg by mouth daily. Active Beckwourth-3 Fatty Acids 1,000 mg Oral Cap Take [...] capsule Take 1 Cap by mouth daily harbor police lieutenant. Active simvastatin (ZOCOR) 20 mg tablet Take [...] 81 mg by mouth daily. Active aspirin (Zaiseoul Low Dose Aspirin) 81 mg Tablet, Delayed Release (E.C.) Take 81 mg by mouth daily. Active albuterol sulfate HFA 90 mcg/actuation aerosol inhaler Take 2 Puffs by inhalation every 6 hours as needed for Shortness of Breath. Active sodium bicarbonate 650 mg tablet Take 650 mg by mouth daily. Active sennosides (SENOKOT) 8.6 mg tablet Take 8.6 mg by mouth daily. Active escitalopram oxalate (LEXAPRO) 10 mg tablet Take by mouth. Activ e Active Problems Problem Noted Date Diagnosed Date [...] Encounters Date Type Department Care Team Description 10/07/2025 Orders Only [facility] Oncology and Hematology - [place] [address] [place] [id number] Armond Epstein MD Anemia of chronic renal failure, stage 5 (CMS/HCC) 10/01/2025 External Device Data STL ABSTRACTION Provider, Abstract 09/23/2025 Orders Only [facility] On[facility] and Hematology - [place] [address] [place] [phone] Armond Epstein MD Anemia of chronic renal failure, stage 5 (CMS/HCC) 09/10/2025 External Device Data STL ABSTRACTION Provider, Abstract 09/09/2025 Orders Only [facility] Oncology and Hematology - [place] [address] [place] [phone] Armond Epstein MD Anemia of chronic renal failure, stage 5 (CMS/HCC) 09/06/2025 Orders Only [facility] On[facility] and Hematology - [place] [address] [place] [phone] Armond Epstein MD 09/05/2025 Orders Only [facility] Oncology and Hematology - [place] [address] [place] [id number] Armond Epstein MD 09/04/2025 10:00 AM TURN DOWN WORKER Office Visit [facility] Hematology - [place] [address] [place] [address] Rosemary Kern MD Stage 3 chronic kidney disease, unspecified whether stage 3a or 3b CKD (CMS/HCC) (Primary Dx); MGUS (monoclonal gammopathy of unknown significance) 09/04/2025 Orders Only [facility] Oncology and Hematology - [place] [address] [place] [phone] Armond Epstein MD 08/26/2025 Orders Only [facility] On[facility] and Hematology [facility] [address] Armond Epstein MD Anemia of chronic renal failure, stage 5 (CMS/HCC) 08/15/2025 Telephone [facility] Hematology [facility] [address] [place] [address] Armond Epstein MD DX on antonio papers 08/12/2025 Orders Only [facility] Hematology [facility] [address] [place] [phone] Armond Epstein MD Anemia of chronic renal failure, stage 5 (CMS/HCC) 08/08/2025 Orders Only [facility] [address] [place] [phone] Armond Epstein MD 07/29/2025 Orders Only [facility] [address] Armond Epstein MD Anemia of chronic renal failure, stage 5 (CMS/HCC) 07/15/2025 Telephone [facility] [address] [place] [phone] Armond Epstein MD Lab Results 07/15/2025 Orders Only [facility] Oncology [place] [address] [address] Armond Epstein MD Anemia of chronic renal failure, stage 5 (CMS/HCC) from Last 3 Months Immunizations Immunization Administration [...] Date Smoking Tobacco: Every Day Cigarettes 0.3 68 Started: 10/24/1955 Smokeless Tobacco: Never Tobacco Cessation:Ready to Q uit: Not Asked; Counseling Given: Not Answered Alcohol Use Standard Drinks/Week Comments Never 0 (1 standard drink = 0.6 oz pur e alcohol) Sex and Gender Information Value Date Recorded Sex Assigned at Not on file Legal Sex Male 4:23 AM TURN DOWN WORKER Gender Identity Not on file Sexual Orientation Not on file Occupation Industry Job Start Date Job End Date Not on file Not on file Not on file Not on file Last Filed Vital Signs Vital Sign Reading Time Taken Comments Blood Pressure 127/57 09/04/2025 9:48 AM TURN DOWN WORKER Pulse 70 09/04/2025 9:48 AM TURN DOWN WORKER Temperature 36.2 C (97.1 F) 09/04/2025 9:48 AM TURN DOWN WORKER Respiratory Rate 16 09/04/2025 9:48 AM TURN DOWN WORKER Oxygen Saturation 97% 09/04/2025 9:48 AM TURN DOWN WORKER Inhaled Oxygen Concentration - - Weight 67.8 kg (149 lb 6.4 oz) 09/04/2025 9:48 A M TURN DOWN WORKER Height 167.6 cm (5' 6) 02/20/2025 11:08 AM CDT Body Mass Index 24.11 02/20/2025 11:08 AM CDT Plan of Treatment Upcoming Encounters Date Type Department Care Team (Late st Contact Info) Description 11/27/2025 9:45 AM TURN DOWN WORKER Office Visit [facility] - [place] [address] [facility] [facility] [address] [place] [address] Armond Epstein MD [address] [facility] [address] [place] [address] Health Maintenance Due Date Last Done Comments ZOSTER VACCINE (1 of 2) 1961 DTAP/TDAP/TD VACCINES (1 - Tdap) 10/25/2011 10/24/2011, 08/29/2008, 10/24/1997 RSV VACCINE (60+ or ) (1 - 1-dose 75+ series) 2017 COVID-19 Vaccine (3 - Modern a risk series) 01/31/2021 01/03/2021, 12/06/2020 INFLUENZA VACCINE (#1) 2025 1, 06/25/2020, 06/25/2020, Additional history exists PNEUMOCOCCAL VACCINE 50+ YEARS Completed 0 06/01/2016, 03/28/2013, 08/29/2008 COLORECTAL SCREENING Discontinued 04/20/2019, 07/01/2016, 07/01/2016, Additional history exists Colorectal Cancer Screening Discontinued FIT-DNA Q 3 years Discontinued FIT/FOBT Q 1 year Discontinued Flex Sig/CT Colonography Q 5 years Discontinued Procedures Procedure Name Priority Date/Time Associated Diagnosis Comments CBC WITH AUTODIFFERENTIAL Routine 2024 2:53 PM TURN DOWN WORKER COMPREHENSIVE METABOLIC PANEL Routine 09/04/2025 7:53 AM TURN DOWN WORKER PROTEIN ELECTROPHORESIS, CSF Routine 09/04/2025 7:46 AM TURN DOWN WORKER CBC WITH AUTODIFFERENTIAL Routine 2024 12:27 PM CDT from Last 3 Months Results * CBC WITH AUTODIFFERENTIAL (09/04/2025 2:53 PM TURN DOWN WORKER) Only the most recent of2 resultswithin the time period is included. Blood Armond Epstein MD HEMATOLOGY ORDERABLES Final Res ult * COMPREHENSIVE METABOLIC PANEL (09/04/2025 7:53 AM TURN DOWN WORKER) Blood us Armond Epstein MD CHEMISTRY ORDERABLES Final Resu lt * PROTEIN ELECTROPHORESIS, CSF (09/04/2025 7:46 AM TURN DOWN WORKER) Cerebrospinal fluid CEREBROSPINAL FLUID / Unknown Armond Epstein MD BODY FLUIDS AND STOOLS Final Re sult from Last 3 [place] [address] MEDICARE PART A AND B [facility] [address] Advance Directives For more information, please contact: [phone] * Full Code (Latest Code Status on File) Date Activated Date Inactivated Comments 09/25/2009 8:40 AM 09/26/2009 2:01 AM Care Teams Cabin Man Relationship Specialty Start Date End Date Vel Gilliam MD [address] [place] [address] PCP - General Family Practice 02/14/14
--- OUTSIDE RECORDS SUMMARY | 2025-10-14 00:12 | XMS_ITS | Encounter Summary ---
Author Organization [facility] Address [address] [facility] [address] [place] [address] Phone Care Team Providers Care Drop Hammer Operator Helper Name Role Phone Fina Todd MD Unavailable Quintin Downey MD Unavailable [phone] Bipin Wetzel MD Unavailable Yancy Romeo MD Unavailable Maged Hercules MD Unavailable Maged Hercules MD Unavailable Nigel Elizalde MD Unavailable [phone] Issa Sanches MD Unavailable [phone] Miscellaneous, Not In File Unavailable Unava ilable Vel Gilliam MD Primary Care Provider [phone] Reason for Referral * Diagnostic Imaging (Routine) - Pending Review Specialty Diagnoses / Procedures Referred By Contac t Referred To Contact Diagnoses Arteriovenous fistula, acquired Procedures US Hemodialysis Access Molina Jordan MD [address] [facility] [address] [place] [address] Phone: tel: fax: [facility] (All Locations) Referral ID Status Reason Start Date Expiration Date V isits Requested Visits Authorized [id number] Pending Review 10/10/2025 11/09/2026 1 1 E SYSTEMS OPERATIONS SUPERINTENDENT Encounter Details Date Type Department Care Team (Late st Contact Info) Description 10/10/2025 Orders Only [facility] Medicine Surgery [address] [facility] 8th [address] [place] [address] Molina Jordan MD [address] [facility] [address] [place] [address] Arteriovenous fistula, acquired (Primary Dx) Social History Tobacco Use Types Packs/Day Years Used Date Smoking Tobacco: Every Day Cigarettes 0.7 65 Started: 1958 Passive Smoke Exposure: Past Smokeless [...] on file Legal Sex Male 3:08 AM 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 Gender Identity Male 09/15/2020 1:55 PM 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 Sexual Orientation Straight 03/02/2020 6: 25 PM CDT documented as of this encounter Plan of Treatment Scheduled Orders Name Type Priority Associated Diagnoses Orde r Schedule US Hemodialysis Access Imaging Schedule Routine, Read Routine (OP Routine) Arteriovenous fistula, acquired Expected: 10/24/2025, Expires: 10/10/2026 documented as of this encounter Visit Diagnoses Diagnosis Arteriovenous fistula, acquired- Primary documented in this encounter Care Teams Drop Hammer Operator Helper Relationship Specialty Start Date End Date Vel Gilliam MD [address] [facility] [place] [address] PCP - General Family Medicine 11/07/24 Fina Todd MD Inserting Operator Dermatology 03/05/19 Quintin Downey MD Consulting Physician Nephrology 03/06/19 Bipin Wetzel MD Referring Physician Cardiovascular Disease 04/08/20 Yancy Romeo MD [address] [facility] [address] [place] [address] Referring Physician Rheumatology 04/08/20 Maged Hercules MD [address] [place] [address] Consulting Physician Hematology and Oncology 09/30/20 Maged Hercules MD [address] [place] [address] Medical Oncologist/Hematologis t Hematology and Oncology 09/30/20 Nigel Elizalde MD [address] [place] [address] Consulting Physician Urology 11/29/23 Issa Sanches MD [address] [place] [address] Consulting Physician Cardiology 11/29/23 Miscellaneous, Not In File 2 documented as of this encounter
--- OUTSIDE RECORDS SUMMARY | 2025-10-14 00:12 | XMS_ITS | Encounter Summary ---
Author Organization [facility] Address [address] [place] [address] Care Team Providers Care New Grad Rn Name Role Phone Fina Todd MD Unavailable [phone] Quintin Downey MD Unavailable [phone] Bipin Wetzel MD Unavailable Yancy Romeo MD Unavailable [phone] Maged Hercules MD Unavailable Maged Hercules MD Unavailable [phone] Nigel Elizalde MD Unavailable [phone] Issa Sanches MD Unavailable [phone] Miscellaneous, Not In File Unavailable Unava Vel Lazo MD Primary Care Provider [phone] Encounter Details Date Type Department Care Team (Late st Contact Info) Description 03/09/2025 Orders Only [facility] Health Information Management [address] [place] [address] Scanning, Provider Social History Tobacco Use Types [...] on file 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 Gender Identity Male 09/15/2020 1:55 PM STAFF RESEARCH SCIENTIST Sexual Orientation Straight 03/02/2020 6: 25 PM CDT documented as of this encounter Plan of Treatment Not on file documented as of this encounter Procedures Procedure Name Priority Date/Time Associated Diagnosis Comments SCAN - RADIOLOGY/IMAGING 03/09/2025 documented in this encounter Results * SCAN - RADIOLOGY/IMAGING (03/09/2025) Anatomical Region Laterality Modality Other us Provider Scanning Edited Result - Final documented in this encounter Visit Diagnoses Not on filedocumented in this encounter Care Teams New Grad Rn Relationship Specialty Start Date End Date Vel Gilliam MD [address] [place] [address] PCP - General Family Medicine 11/07/24 Fina Todd MD Application Analyst Dermatology 03/05/19 Quintin Downey MD Consulting Physician Nephrology 03/06/19 Bipin Wetzel MD Referring Physician Cardiovascular Disease 04/08/20 Yancy Romeo MD [address] [facility] [address] [place] [address] Referring Physician Rheumatology 04/08/20 Maged Hercules MD [address] [place] [address] Consulting Physician Hematology and Oncology 09/30/20 Maged Hercules MD [address] [place] [address] Medical Oncologist/Hematologis t Hematology and Oncology 09/30/20 Nigel Elizalde MD [address] [place] [address] Consulting Physician Urology 11/29/23 Issa Sanches MD [address] [facility] [address] [place] [address] Consulting Physician Cardiology 11/29/23 Miscellaneous, Not In File 12/13/23 documented as of this encounter
--- OUTSIDE RECORDS SUMMARY | 2025-10-14 00:12 | XMS_ITS | Clinical Summary ---
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 [facility] Orthostatic hypotension 08/04/2020 Anemia of chronic renal [...] cardiac rhythm abnormalities: a report of the [place] [employer] Foundation/[place] Heart Association Task Force on Practice Guidelines and the Heart Rhythm Society. J Am Kimberly Cardiol 2013;61:e6-75. 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 (Level of Evidence: C) Cobalamin deficiency 03/05/2019 Systemic lupus erythematosus 05/31/2017 Overview (07/18/2019): Last Assessment & Plan: Patient is also followed by the bottle filler for his rheumatoid arthritis Monoclonal gammopathy of [...] is followed by the vascular surgeons at [facility]. Essential (primary) hypertension 10/10/2013 Proteinuria 10/10/2013 Obstructive [...] on file Legal Sex Male 10:05 AM [facility] Gender Identity Not on file Sexual Orientation [...] 9:59 AM CDT Height 167.6 cm (5' 6) 07/14/2022 9:59 AM CDT Body Mass Index 29.21 07/14/2022 9:59 AM CDT Plan of Treatment Health Maintenance Due Date Last Done Comments COVID-19 Vaccine (2024-11 6 season) 2025 01/03/2021, 12/06/2020 Influenza Vaccine (#1) 2025 , 09/10/2018, 08/29/2017, Additional history exists Pneumococcal PPSV23/PCV13 65 + Years / Low and Medium Risk Completed 06/01/2016, 03/28/2013, 08/29/[address] [place] [address] [employer] H[employer] Care Teams Custodial Laborer Relationship Specialty Start Date End Date Vel Gilliam MD [address] [place] [address] PCP - General Family Medicine 02/25/22
--- OUTSIDE RECORDS SUMMARY | 2025-10-14 00:12 | XMS_ITS | Encounter Summary ---
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
--- OUTSIDE RECORDS SUMMARY | 2025-10-14 00:12 | XMS_ITS | Clinical Summary ---
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 Gender Identity Not on file Sexual Orientation Not on file Last Filed Vital Signs Vital Sign Reading Time Taken Comments Blood Pressure 136/56 12/24/2019 1:49 PM WOODS OVERSEER Pulse 52 12/24/2019 1:49 PM WOODS OVERSEER Temperature 36.4 C (97.6 F) 11/30/2019 9:17 AM WOODS OVERSEER Respiratory Rate - - Oxygen Saturation 97% 11/30/2019 9:17 AM WOODS OVERSEER Inhaled Oxygen Concentration - - Weight 87.5 kg (193 lb) 12/24/2019 1:49 PM WOODS OVERSEER Height 167.6 cm (5' 6) 12/24/2019 1:49 PM WOODS OVERSEER Body Mass Index 31.15 12/24/2019 1:49 PM WOODS OVERSEER Plan of Treatment Health Maintenance Due Date Last Done Comments Zoster Vaccines (1 of 2) 1992 Annual Medicare Wellness Visit 2007 DTaP, Tdap and Td Vaccines (1 - Tdap) 10/25/2011 10/24/2011, 08/29/2008, 08/29/2008, Additional history exists RSV Immunization or 60+ Years (1 - 1-dose 75+ series) 2017 COVID-19 Vaccine ( - 2024- season) 2025 Influenza Adult (#1) 2025 08/18/2019, 09/10/2018, 08/07/2018, Additional history exists Pneumococcal Vaccine: 50+ Years Completed 06/01/2016, 03/28/2013, 08/29/2008 Hepatitis A Vaccines Aged Out No long er eligible based on patient's age to complete this topic Meningococcal B Vaccine Aged Out No l onger eligible based on patient's age to complete this topic Meningococcal Vaccine Aged Out No ginny lalo eligible based on patient's age to complete this topic RSV Immunizations Under 20 Months Aged Out No longer eligible based on patient's age to [place] [address] [employer] Care Teams Pilot Boat Deckhand Relationship Specialty Start Date End Date Lynsey Swann FNP PCP - General Nurse Practitioner Family 11/30/19
--- OUTSIDE RECORDS SUMMARY | 2025-10-14 00:12 | XMS_ITS | Encounter Summary ---
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
--- OUTSIDE RECORDS SUMMARY | 2025-10-14 00:12 | XMS_ITS | Clinical Summary ---
Author Organization [facility] Address [address] [place] [address] Phone Care Team Providers Care Property Master Name Role Phone Fina Todd MD Unavailable [phone] Quintin Downey MD Unavailable [phone] Bipin Wetzel MD Unavailable Yancy Romeo MD Unavailable Maged Hercules MD Unavailable Maged Hercules MD Unavailable [phone] Nigel Elizalde MD Unavailable [phone] Issa Sanches MD Unavailable [phone] Miscellaneous, Not In File Unavailable Unava Vel Lazo MD Primary Care Provider [phone] Allergies Active Allergy Reactions Criticality Noted Date Comments Clonazepam Other (See comments) Low 03/07/2025 Iodinated Contrast Media Other (See comments) 0 07/17/2025 Vit E-Nonoxynol 9-Aloe Vera Rash Medium 07/17/20 25 Medications simvastatin (ZOCOR) 10 mg tabletIndications: hyperlipidemia Take 1 tablet (10 mg total) by mouth every morning 07/08/20 Active cholecalciferol (VITAMIN D-3) 5,000 unit tablet Take 1 tablet (5,000 Units total) by mouth daily Active sodium bicarbonate 650 mg tabletIndications: CKD Take 1 tablet (650 mg total) by mouth 2 (two) times a day 02/25/20 23 Active finasteride (PROSCAR) 5 mg tabletIndications: benign prostatic hyperplasia with lower urinary tract sx Take 1 tablet (5 mg total) by mouth every morning Active tamsulosin (FLOMAX) 0.4 mg extended release capsuleIndications :benign prostatic hyperplasia with lower urinary tract sx Take 1 capsule (0.4 mg total) by mouth every morning 06/23/20 24 Active sennosides 17.2 mg tablet Take 1 tablet/capsule by mouth daily as needed (constipation) Active bumetanide (BUMEX) 1 mg tablet Take 1 tablet (1 mg total) by mouth every morning 08/16/20 24 Active guaiFENesin ER (MUCINEX) 600 mg 12 hr tablet Take 1 tablet (600 mg total) by mouth as needed for cough 08/16/20 24 Active aspirin 81 mg enteric coated tablet Take 1 tablet (81 mg total) by mouth daily 11/27/19 25 Active polyethylene glycol (MIRALAX) 17 gram packet Take 1 packet (17 g total) by mouth as needed for constipation Active clonazePAM (KlonoPIN) 0.5 mg disintegrating tablet [...] Active oxyCODONE (ROXICODONE) 5 mg immediate release tabletIndications: Pain Take 1 tablet (5 mg total) by mouth every 4 (four) hours as needed for pain 10 tablet 02/06/20 25 Active Additional Information Patient not taking.Reported on 07/17/2025 ferrous sulfate ER 324 mg (65 mg iron) EC tablet Take 1 tablet (324 mg total) by mouth daily 04/10/20 25 Active eszopiclone (LUNESTA) 1 mg tablet Take 1 tablet (1 mg total) by mouth nightly 04/17/20 25 Active metoprolol XL (TOPROL-XL) 100 mg 24 hr tablet Take 1 tablet (100 mg total) by mouth daily 90 tablet 3 04/24/20 25 026 Active gabapentin (NEURONTIN) 300 mg capsule TAKE 1 CAPSULE BY MOUTH TWICE A DAY 60 capsule 2 05/09/20 25 Active sertraline (ZOLOFT) 50 mg tablet Take 1 tablet (50 mg total) by mouth daily 05/14/20 25 Active montelukast (SINGULAIR) 10 mg tablet TAKE 1 TABLET BY MOUTH EVERY DAY AT NIGHT 90 tablet 07/03/20 25 Active fluticasone-umecli din-vilanter (Trelegy Ellipta) 100-62.5-25 mcg inhaler Inhale 1 puff daily 90 each 3 08/07/20 25 026 Active albuterol HFA (Ventolin HFA) 90 mcg/actuation inhaler Inhale 2 puffs every 6 (six) hours as needed for wheezing 1 each 3 08/07/20 25 Active hydroxychloroquine (PLAQUENIL) 200 mg tablet TAKE 1 TABLET (200 MG TOTAL) BY MOUTH DAILY 90 tablet 1 09/11/20 25 Active amLODIPine (NORVASC) 5 mg tablet Take 2 tablets (10 mg total) by mouth daily 180 tablet 3 09/18/20 25 Active ipratropium-albute roL (DUO-NEB) 0.5-2.5 mg/3 mL nebulizer solutionIndication s:Chronic obstructive pulmonary disease, unspecified COPD type (HCC) NEBULIZE CONTENTS OF 1 VIAL EVERY 6 HOURS WHEN NEEDED FOR WHEEZING/SHORTN ESS OF BREATH 360 mL 12 09/30/20 25 Active albuterol HFA (PROVENTIL HFA,VENTOLIN HFA,PROAIR HFA) 90 mcg/actuation inhaler Inhale 2 puffs every 6 (six) hours as needed for wheezing or shortness of breath 3 each 1 10/09/20 25 026 Active amLODIPine (NORVASC) 5 mg tablet TAKE 2 TABLETS BY MOUTH EVERY DAY 180 tablet 3 03/04/20 25 025 Discontin ued(Reord er) Active Problems Problem Noted Date Diagnosed Date History of prostate cancer 08/07/2025 Pleural effusion 05/29/2025 Oropharyngeal dysphagia 05/29/2025 Encounter for surgical after care following surgery of circulatory system 03/26/2025 Arteriovenous fistula, acquired 03/26/2025 Chronic kidney disease (CKD), stage V 01/21/2025 Chronic systolic CHF (congestive heart failure) 09/04/2024 Nonrheumatic mitral valve regurgitation 09/04/20 Cardiomyopathy 09/04/2024 Peripheral arterial occlusive disease 12/13/2023 Overview (12/13/2023): PVD - Peripheral vascular disease; Comments: TWM 11/07/2015 - Assessment & Plan (12/13/2023 1:29 PM OLIVE PITTER): #PAD #Asx ICA stenosis - Home med: Simvastatin 10mg daily GERD (gastroesophageal reflux disease) Assessment & Plan (12/13/2023 1:29 PM OLIVE PITTER): - Home med: Famotidine 40mg daily Elevated troponin 12/13/2023 Assessment & Plan (12/13/2023 1:31 PM OLIVE PITTER): - : Trop 47, 45, 49, plateaued - New RBBB on EKG compared to EKG 09/2023 Right bundle branch block (RBBB) 12/13/2023 Assessment & Plan (12/13/2023 1:40 PM OLIVE PITTER): - Noted on EKG 12/12/2023, changed from prior EKG 09/2023 - Follow up with outpatient planning feeder Dr. Chester Closed fracture dislocation of sternum Assessment & Plan (12/13/2023 1:29 PM OLIVE PITTER): - pain controlled on RA and patient ambulatory after >12 hrs between accident and arriving to [facility]. - Repeat EKG with new RBBB [...] months. Assessment & Plan (11/29/2023 9:59 AM OLIVE PITTER): Asymptomatic and stable left ICA stenosis based on velocity criteria. As long as he's smoking, we recommend monitoring him with carotid doppler every six months. Assessment & Plan (09/02/2022 11:43 AM OLIVE PITTER): He has minimal right ICA stenosis. The [...] administration of iodinated contrast. He has a [employer] Essentio pacemaker implant. The MR department at [facility] is checking with [employer] to determine if his implant - including [...] if change/issue/re-evaluation desired. Pacemaker 08/12/2020 Overview (08/12/2020): [employer] DDD Essentio pacemaker implanted on 08/12/20 for SSS. [employer] - Latitude Overweight with body mass in dex (BMI) of 28 to 28.9 in adult 08/06/2020 Assessment & Plan (08/06/2020 2:26 PM CDT): Unchanged Discussed healthy diet and importance of regular physical activity. Sinoatrial node dysfunction 08/05/2020 Overview (08/05/2020): Added automatically from request for surgery [id number] Anemia associated with chronic renal failure 08/2020 [...] cardiac rhythm abnormalities: a report of the [employer] Task Force on Practice Guidelines [...] cardiac rhythm abnormalities: a report of the [employer] Task Force on Practice Guidelines [...] his symptoms. He has not seen a planning feeder for any reasons lately. He has not had any active heart symptoms otherwise that brought him to 1. We did do an EKG which confirmed the it bradycardia. It is probably worth setting up a consult with the planning feeder to assess this further. If there is any acute heart symptoms or concerns at all was reasonable to going to the emergency room to seek more emergent her medial evaluation. They will call interim if there is any other concerns. Reviewed symptoms to watch for. Hemorrhage of rectum and anus 04/04/2019 Overview (04/04/2019): Added automatically from request for surgery [id number] Assessment & Plan (06/13/2020 2:44 PM CDT): [...] 10/25/2018 Assessment & Plan (10/25/2018 3:10 PM OLIVE PITTER): We reviewed current day concerns aboutbenzis and [...] 07/15/2017 Assessment & Plan (10/25/2018 3:09 PM OLIVE PITTER): Reviewed his recent labs. He is going to follow up with his vice president of nursing about the anemia. He does not believe [...] CDT): Patient is also followed by the leather whitener for his rheumatoid arthritis Monoclonal gammopathy 04/14/2016 [...] disease Assessment & Plan (09/02/2022 10:18 AM OLIVE PITTER): Stable lower extremity arterial disease both symptomatically and based on vascular study. Repeat ABIs in one year. Assessment & Plan (04/13/2017 6:13 PM CDT): Has carotid disease. Had an ultrasound in October. Followed by Dr. Herrmann Anxiety disorder 11/07/2015 Overview (01/27/2017): Depression, unspecified depression type Assessment & Plan (12/13/2023 1:28 PM OLIVE PITTER): - Home med: Alprazolam 0.25mg BID Sjogren's disease 01/07/2015 Assessment & Plan (12/13/2023 1:27 PM OLIVE PITTER): #Sjogrens/SLE - Home med: Plaquenil 200mg BID, Gabapentin 300mg BID Chronic kidney disease, stage IV (severe) 2009 Assessment & Plan (03/03/2020 1:12 PM CDT): He is going to call the vice president of nursing to make sure they are okay with [...] hypertension Assessment & Plan (12/13/2023 1:27 PM OLIVE PITTER): - Home med: Amlodipine 0.25mg BID, HCTZ 200mg daily, Metop 50mg daily, Irbesartan 300mg daily Assessment & Plan (03/03/2020 1:12 PM CDT): He is going to cautiously increase Avapro 150 mg twice a day. He is aware were going to have to watch his renal function. He is also going to reach out to his vice president of nursing to make sure they are on board with that. I did put lab orders in. He can acid vice president of nursing as well as leather whitener if they wanted the other labs in [...] Osteoarthritis 05/05/2004 Impotence of organic origin 05/05/2004 ARTURO (obstructive sleep apnea) 05/05/2004 Overview (03/06/2019): Overview: CPAP Assessment & Plan (12/13/2023 1:26 PM OLIVE PITTER): - CPAP ordered Tobacco abuse 10/24/1998 Overview (03/05/2019): Overview: Quit 1998; 40 pack years Assessment & Plan (11/29/2023 11:43 AM OLIVE PITTER): The importance of smoking cessation was discussed with the patient including the relationship between peripheral vascular disease and tobacco abuse. COPD (chronic obstructive pulmonary disease) Assessment & Plan (12/13/2023 1:26 PM OLIVE PITTER): - Home med: Trelegy Ellipta daily, Albuterol [...] 12/28/2019 Assessment & Plan (12/28/2019 12:47 PM OLIVE PITTER): I do not see any indication why [...] activity. Assessment & Plan (10/25/2018 3:09 PM OLIVE PITTER): BMI Follow-up includes: nutrition counseling, exercise counseling and education provided. Diarrhea 10/25/2018 03/05/2019 Foot pain, bilateral 06/27/2018 019 Skin lesions, generalized 01/26/2018 Assessment & Plan (01/26/2018 4:03 PM CDT): Patient has multiple skin issues on his back. I have elected to refer him to the edge drummer. I do not see anything overly alarming right now. There is some much going on there though. Bronchitis 12/06/2017 03/05/2019 Assessment & Plan (12/06/2017 12:24 PM OLIVE PITTER): Still smoking colored sputum plus wheezes will [...] Anxiety Assessment & Plan (10/25/2018 3:10 PM OLIVE PITTER): He will continue on his Lexapro. I refilled the Xanax. He reports he is doing okay between the 2 medications. We reviewed medication side effect potentials Obesity with body mass index (BMI) of 30.0 to 39.9 11/07/2015 09/23/2020 Overview (01/27/2017): Lumbar herniated disc Assessment & Plan (12/28/2019 10:37 AM OLIVE PITTER): Unchanged Discussed healthy diet and importance of [...] is followed by the vascular surgeons at [facility]. Moderate major depression, single episode 05/24/2011 12/28/2019 Obesity 09/24/2010 03/05/2019 Microalbuminuria 08/26/2008 12/28/2019 Aortic valve sclerosis 07/29/200503/05 Encounters Date Type Department Care Team Description 10/10/2025 Telephone [facility] Medicine Surgery [address] [facility] Advanced Medicine 8th [place] [address] [place] [phone] Molina Jordan MD 10/10/2025 Orders Only [facility] Medicine Surgery [address] [facility] Advanced Medicine 8th [place] [address] [place] [address] Molina Jordan MD Arteriovenous fistula, acquired (Primary Dx) 10/09/[address] [place] [address] [facility] [address] [place] [phone] Pedro Pablo Sue MD 09/18/2025 Telephone [facility] Cardiology [address] [place] [address] [place] [phone] Maged Fowler MD 08/26/2025 Orders Only [facility] Pathology Outreach [address] [place] [id number] Unknown, Notinfile 08/14/2025 7:00 AM CDT Ancillary Procedure [facility] Cardiology [address] [place] [address] [place] [phone] Bradycardia; Sinoatrial node dysfunction (HCC); Cardiac pacemaker in situ 08/14/2025 Orders Only [facility] Cardiology [address] [place] [address] [place] [phone] Maged Fowler MD SSS (sick sinus syndrome) (HCC) (Primary Dx); Pacemaker 08/07/2025 11:45 AM CDT Office Visit [place] [address] [facility] [address] [place] [phone] Pedro Pablo Sue MD Mucopurulent chronic bronchitis (HCC) (Primary Dx); Rheumatoid arthritis, involving unspecified site, unspecified whether rheumatoid factor present (HCC); Other systemic lupus erythematosus with other organ involvement; Monoclonal gammopathy; ARTURO (obstructive sleep apnea); History of radiation therapy; Cigarette nicotine dependence without complication; Chronic cough; Non-seasonal allergic rhinitis due to pollen; Gastroesophageal reflux disease without esophagitis; Pleural effusion; Multiple pulmonary nodules; Oropharyngeal dysphagia; History of prostate cancer 07/30/2025 Orders Only [facility] Cardiology [address] [place] [address] [place] [phone] Bhavna Mcleod MD 07/23/2025 2:00 PM CDT Office Visit [facility] Cardiology [address] [place] [address] [address] [place] [phone] Kinjal Manley NP Chronic systolic CHF (congestive heart failure) (HCC) (Primary Dx); Dilated cardiomyopathy (HCC); Chronic kidney disease, stage IV (severe) (HCC); Sinoatrial node dysfunction (HCC); Cardiac pacemaker in situ 07/23/2025 Telephone [facility] Medicine Surgery [address] [facility] Floor 1 [place] [address] Molina Jordan MD 07/22/2025 Telephone [facility] Pulmonary [place] [address] [facility] [address] [place] [address] Pedro Pablo Sue MD 07/17/2025 10:30 AM CDT Office Visit [facility] Medicine Rheumatology [address] [facility] Office Building [address] [place] [phone] Yancy Romeo MD Inflammatory arthritis (Primary Dx); High risk medication use from Last 3 Months Immunizations Immunization Administration [...] Other Medical Chronic renal i mpairment; Comments: [facility] 11/07/2015 - Depression Depression Hypertension Hypertension Sjogren's syndrome Sjogrens synd zari; Comments: [facility] 11/07/2015 - Anxiety disorder Anxiety Hx Other Medical peripheral vasc ular disease; Comments: [facility] 11/07/2015 - Peripheral arterial occlusive disease 12/13/2023 PVD - Peripheral vascular disease; Comments: [facility] 11/07/2015 - Sleep apnea Sleep apnea; Com ments: [facility] 11/07/2015 - Chronic back pain Chronic back p ain; Comments: [facility] 11/07/2015 - Decreased testosterone level Low testosterone; Comments: [facility] 11/07/2015 - Inguinal hernia Inguinal hernia; Comments: [facility] 11/07/2015 - Cancer (HCC) prostrate Sleep difficulties [...] on file Legal Sex Male 3:08 AM OLIVE PITTER Gender Identity Male 09/15/2020 1:55 PM OLIVE PITTER Sexual Orientation Straight 03/02/2020 6: 25 PM CDT Last Filed Vital Signs Vital Sign Reading Time Taken Comments Blood Pressure 122/78 08/07/2025 12:01 PM CDT Pulse 74 08/07/2025 12:01 PM CDT Temperature 36.6 C (97.9 F) 08/07/2025 12:01 PM CDT Respiratory Rate 16 08/07/2025 12:01 PM CDT Oxygen Saturation 95% 08/07/2025 12:01 PM CDT Inhaled Oxygen Concentration - - Weight 68 kg (150 lb) 08/07/2025 12:01 PM CDT Height 167.6 cm (5' 6) 08/07/2025 12:01 PM CDT Body Mass Index 24.21 08/07/2025 12:01 PM CDT Plan of Treatment Health Maintenance Due Date Last Done Comments Zoster Vaccine (1 of 2) 1959 Covid-19 Vaccine (3 - Modern a risk series) 01/31/2021 01/03/2021, 12/06/2020 Well Visit 65+ 05/21/2021 05/21/2020, 10/25/2018 Depression Screening 06/25/2021 06/25/2020, 05/21/2020, 05/21/2020, Additional history exists Influenza Vaccine (#1) 2025 , 08/12/2021, 06/25/2020, Additional history exists Fall Risk Assessment 02/05/2026 02/05/2025, 06/25/2020, 05/21/2020, Additional history exists DTaP/Tdap/Td Vaccine (3 - Td or Tdap) 09/03/2034 09/03/2024, 05/22/2012, 10/24/2011, Additional history exists Pneumococcal vaccine 65+ Completed 016, 03/28/2013, 08/29/2008 Abdominal Aortic Aneurysm (A AA) Screen Completed 09/02/2022, 06/16/2022, 07/24/2020, Additional history exists Hepatitis B Screening Completed 06/29/2023 Medical Devices Implanted Type Area Competitive Athlete Device Identifier Shelf Expiration Date Model / Serial / Lot [employer] Fadumo [id number] Lead [id number] Endocardial Pacing Mr Is-1 Bipolar Connection - [id number] - [id number] Implanted:Qty: 1 on 08/12/2020 by Issa Sanches MD at [facility] [employer] [id number] 11/20/2021 [id number] / [id number] / [employer] Fadumo 7840 Lead 7840 Endocardial Pacing Is-1 Bipolar Connection - [id number] - [id number] Implanted:Qty: 1 on 08/12/2020 by Issa Sanches MD at [facility] [employer] [id number] 11/22/2021 7840 / [id number] / [employer]. L111 Essentio 4.45x5.02cm 2 Chamber Is1 Connector .75cm Pacemaker 13.7 - [id number] - [id number] Implanted:Qty: 1 on 08/12/2020 by Issa Snaches MD at [facility] [employer] [id number] 06/23/2022 [id number] / [id number] / Procedures Procedure Name Priority Date/Time Associated Diagnosis Comments SURGICAL PATHOLOGY Routine 08/26/2025 9: 30 AM OLIVE PITTER DEVICE CHECK - REMOTE Routine 08/14/2025 7:26 AM CDT Bradycardia Sinoatrial node dysfunction (HCC) Cardiac pacemaker in situ from Last 3 Months Results * Surgical pathology (08/26/2025 9:30 AM OLIVE PITTER) Skin, shave biopsy 08/26/2025 9:30 AM OLIVE PITTER 08/27/2025 7:48 AM OLIVE PITTER Narrative 08/29/2025 4:15 PM OLIVE PITTER EPIC results best viewed via link to PDF [facility] [address] [place] [address], [address], [place] [address] [email or web address] Note to Patients: This report may contain [...] can answer questions and explain the details. FINAL REPORT Patient Information: PATIENT NAME: UNIQUE FRANK SEX: M : 1940 (Age: 84) Specimen Information: COLLECTED: 08/26/2025 RECEIVED: 08/27/2025 REPORTED: 08/29/2025 Submitting Physician Information: Ange Swanson [facility], [address] [place] [address], DERMATOPATHOLOGY REPORT RESULTS DIAGNOSIS: SKIN, LEFT SUPERIOR UPPER BACK, SHAVE BIOPSY: LICHENOID DERMATITIS Note: The differential diagnosis includes a lichenoid photodermatitis, a lichenoid drug eruption, and discoid lupus erythematosus. exr/ajrr By this signature, I attest that the above diagnosis is based upon my personal examination of the slides(and/or other material indicated in the diagnosis). Matthias Henry M.D. Report Electronically Reviewed and Signed Out By Matthias Henry M.D. 08/29/2025 16:15:18 CLINICAL INFORMATION DERMATITIS UNSPECIFIED VS TINEA CORPORIS VS GA SPECIMEN DATA MICROSCOPIC DESCRIPTION: There is a superficial and mid-dermal perivascular and lichenoid inflammatory cell infiltrate that consists of lymphocytes and histiocytes and obscures the dermo-epidermal junction where there are vacuolar alteration and necrotic keratinocytes. A MART-1 immunohistochemical stain was performed to evalute for a melanocytic neoplasm; it is negative for a melanocytic neoplasm. A PAS stain was performed to identify the presence of fungal organisms; it is negative for hyphae. (L30.9) GROSS DESCRIPTION: Received in a formalin-containing bottle is a superficial fragment of pale dotson, wrinkled, and finely scaling skin measuring 1.5 by 1.2 by 0.1 cm. The surgical margin is inked blue. The specimen is sectioned into 5 pieces and submitted entirely in a single cassette. Due to shrinkage, measurements may be different than those at time of procedure. ag/mat Clerical Data A; 05930, 38689, 03526-DM The characteristics of special, immunohistochemical, and immunofluorescence stains and in-situ hybridization tests performed by the [facility] were deemed acceptable in ongoing quality improvement manager measures and in compliance with regulations drawn from the Clinical Laboratory Improvement Act mf3749 (CLIA '88). Control reactions for all stains performed were deemed adequate and appropriate by a pathologist prior to evaluation of patient tissue. Some diagnoses were rendered with the assistance of laboratory-developed tests utilizing analyte-specific reagents; the performance characteristic of these tests were determined by [facility] and are not cleared or approved by the [place] Food an Drug administration. Laboratory developed test may only be performed in a facility that is certified by the [facility] as a high-complexity laboratory under CLIA '88. These tests are used for clinical purposes and are not investigational. us Notinfile Unknown LAB PATHOLOGY ORDERABLES Final Result * DEVICE CHECK - REMOTE (08/14/2025 7:26 AM CDT) Anatomical Region Laterality Modality Other Narrative 08/15/2025 4:20 PM CDT [employer] DDD Essentio pacemaker implanted on 08/12/20 for SSS. [employer] - Latitude. Routine DDDR Pacemaker Remote. Transmission attached. Battery status: Ok, 3.0 years remaining battery life to MANE. Stable lead impedances, pacing and sensing thresholds. Presenting rhythm: AP-RESEARCH DEVELOPMENT MANAGER. AP-100%, RESEARCH DEVELOPMENT MANAGER-94%. No AT/AF episodes noted. No Ventricular high rate episodes detected. Medications: ASA 81 mg, Toprol-XL. See scanned report. Office pacemaker follow up: 03/05/2026. Latitude remote f/u 11/13/2025. Adali Vaca RN us Maged Fowler MD [facility] CARDIAC SERVICES PROCE DURES Final Result from Last [address] Mon[address] [address] [place] [address] [place] [address] Advance Directives For more information, please contact: [phone] * Full Code (Latest Code Status on File) Date Activated Date Inactivated Comments 11/26/2024 11:44 AM 11/26/2024 6:45 PM * Full Code Date Activated Date Inactivated Comments 12/12/2023 3:26 PM 12/13/2023 7:42 PM * Full Code Date Activated Date Inactivated Comments 04/20/2019 9:05 AM 04/20/2019 2:46 PM * Full Code Date Activated Date Inactivated Comments 04/20/2019 9:04 AM 04/20/2019 9:05 AM Care Teams Property Master Relationship Specialty Start Date End Date Vel Gilliam MD [address] [place] [address] PCP - General Family Medicine 11/07/24 Fina Todd MD Campaign Analyst Dermatology 03/05/19 Quintin Downey MD Consulting Physician Nephrology 03/06/19 Bipin Wetzel MD Referring Physician Cardiovascular Disease 04/08/20 Yancy Romeo MD [address] [place] [address] Referring Physician Rheumatology 04/08/20 Maged Hercules MD [address] [facility] [address] Consulting Physician Hematology and Oncology 09/30/20 Maged Hercules MD [address] [facility] [place] [address] Medical Oncologist/Hematologis t Hematology and Oncology 09/30/20 Nigel Elizalde MD [address] [place] [address] Consulting Physician Urology 11/29/23 Issa Sanches MD [address] [facility] [address] [address] Consulting Physician Cardiology 11/29/23 Miscellaneous, Not In File 12/13/23
--- OUTSIDE RECORDS SUMMARY | 2025-10-14 00:12 | XMS_ITS | Encounter Summary ---
Author Organization [facility] Healthcare Address [address] [place] [address] Care Team Providers Care Team Physician Name Role Phone Fina Todd MD Unavailable [phone] Quintin Downey MD Unavailable [phone] Bipin Wetzel MD Unavailable Yancy Romeo MD Unavailable [phone] Maged Hercules MD Unavailable [phone] Maged Hercules MD Unavailable [phone] Nigel Elizalde MD Unavailable [phone] Issa Sanches MD Unavailable [phone] Miscellaneous, Not In File Unavailable Unava Vel Lazo MD Primary Care Provider [phone] Encounter Details Date Type Department Care Team (Late st Contact Info) Description 03/08/2025 Orders Only [facility] Health Information Management [address] [place] [address] Scanning, Provider Social History Tobacco Use [...] on file 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 Gender Identity Male 09/15/2020 1:55 PM CATH LABORATORY TECHNICIAN Sexual Orientation Straight 03/02/2020 6: 25 PM CDT documented as of this encounter Plan of Treatment Not on file documented as of this encounter Procedures Procedure Name Priority Date/Time Associated Diagnosis Comments CARDIOLOGY DOCUMENT SCAN 03/08/2025 documented in this encounter Results * Cardiology Document Scan (03/08/2025) Anatomical Region Laterality Modality Other us Provider Scanning CV CARDIAC SERVICES PROCEDURES Edited Result - Final documented in this encounter Visit Diagnoses Not on filedocumented in this encounter Care Teams Team Physician Relationship Specialty Start Date End Date Vel Gilliam MD [address] [place] [address] PCP - General Family Medicine 11/07/24 Fina Todd MD Log Haul Chain Feeder Dermatology 03/05/19 Quintin Downey MD Consulting Physician Nephrology 03/06/19 Bipin Wetzel MD Referring Physician Cardiovascular Disease 04/08/20 Yancy Romeo MD [address] [facility] [address] [place] [address] Referring Physician Rheumatology 04/08/20 Maged Hercules MD [address] [place] [address] Consulting Physician Hematology and Oncology 09/30/20 Maged Hercules MD [address] [place] [address] Medical Oncologist/Hematologis t Hematology and Oncology 09/30/20 Nigel Elizalde MD [address] [place] [address] Consulting Physician Urology 11/29/23 Issa Sanches MD [address] [facility] [address] [place] [address] Consulting Physician Cardiology 11/29/23 Miscellaneous, Not In File 12/13/23 documented as of this encounter
--- OUTSIDE RECORDS SUMMARY | 2025-10-14 00:12 | XMS_ITS | Clinical Summary ---
Author Organization [facility] Address [address] [place] [address] Care Team Providers Care Ad Operations Coordinator Name Role Phone No, Pcp DIE CAST ENGINEER Primary Care Provider Unavailabl e Social History Tobacco Use Types Packs/Day Years Used Date Smoking Tobacco: Never Assessed Sex and Gender Information Value Date Recorded Sex Assigned at Not on file Legal Sex Male 5:51 PM EST Gender Identity Not on file Sexual Orientation Not on file Plan of Treatment Not on file Medical Devices Not [place] [address] MEDICARE Care Teams Ad Operations Coordinator Relationship Specialty Start Date End Date No, Pcp, DIE CAST ENGINEER N/A Do not use PCP - General Family Medicine 11/11/20
--- OUTSIDE RECORDS SUMMARY | 2025-10-14 00:12 | XMS_ITS | Encounter Summary ---
Author Organization [facility] Healthcare Address [address] [place] [address] Care Team Providers Care Health Benefits Specialist Name Role Phone Fina Todd MD Unavailable [phone] Quintin Downey MD Unavailable [phone] Bipin Wetzel MD Unavailable Yancy Romeo MD Unavailable [phone] Maged Hercules MD Unavailable Maged Hercules MD Unavailable Nigel Elizalde MD Unavailable [phone] Issa Sanches MD Unavailable Miscellaneous, Not In File Unavailable Unava Vel Lazo MD Primary Care Provider [phone] Encounter Details Date Type Department Care Team (Late st Contact Info) Description 12/14/2024 Orders Only [facility] Health Information Management [address] [place] [address] Scanning, Provider Social History Tobacco Use Types Packs/Day Years Used Date Smoking Tobacco: Former Cigarettes 0.8 63.7 S tarted: 1961 Passive Smoke Exposure: Past Smokeless Tobacco: Never Comments:34 pack hx Alcohol Use Standard Drinks/Week Comments No 0 (1 standard drink = 0.6 oz pur e alcohol) AUDIT-C Answer Date Recorded Q1: How often do you have a drink containing alcohol? Never 12/04/2024 Q2: How many drinks containi ng alcohol do you have on a typical day when you are drinking? Patient does not drink Q3: How often do you have si x or more drinks on one occasion? 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 Gender Identity Male 09/15/2020 1:55 PM HAND BUTTON SPLITTER Sexual Orientation Straight 03/02/2020 6: 25 PM CDT documented as of this encounter Plan of Treatment Not on file documented as of this encounter Procedures Procedure Name Priority Date/Time Associated Diagnosis Comments SCAN - LABS 12/14/2024 documented in this encounter Results * SCAN - LABS (12/14/2024) us Provider Scanning Final Result documented in this encounter Visit Diagnoses Not on filedocumented in this encounter Care Teams Health Benefits Specialist Relationship Specialty Start Date End Date Vel Gilliam MD [address] [place] [address] PCP - General Family Medicine 11/07/24 Fina Todd MD Contract Analyst Dermatology 03/05/19 Quintin Downey MD Consulting Physician Nephrology 03/06/19 Bipin Wetzel MD Referring Physician Cardiovascular Disease 04/08/20 Yancy Romeo MD [address] [place] [address] Referring Physician Rheumatology 04/08/20 Maged Hercules MD [address] [place] [address] Consulting Physician Hematology and Oncology 09/30/20 Maged Hercules MD [address] [place] [address] Medical Oncologist/Hematologis t Hematology and Oncology 09/30/20 Nigel Elizalde MD [address] [place] [address] Consulting Physician Urology 11/29/23 Issa Sanches MD [address] [facility] [address] [place] [address] Consulting Physician Cardiology 11/29/23 Miscellaneous, Not In File 12/13/23 documented as of this encounter
--- OUTSIDE RECORDS SUMMARY | 2025-10-14 00:12 | XMS_ITS | Clinical Summary ---
Author Organization [facility] Address [address] [address] Phone Care Team Providers Care Merchandise Flow Manager Name Role Phone Javon Viveros DO Unavailable [phone] Lynsey Nur MD Primary Care Provider [phone] Medications polyethylene glycol (MIRALAX) Powder Mix the [...] 1-dose 75+ series) 2017 Influenza Immunization (#1) 2025 09/0 11/2019, 11/07/2015, 09/10/2014, Additional history exists SARS-COV-2 Immunization ( - 2024- season) 2025 02/24/2022, 08/25/2021, 01/03/2021, Additional history exists DTaP/Tdap/Td Immunization Discontinued 08/29/2008, 10/1997 Hepatitis B Immunization Aged Out No longer eligible based on patient's age to complete this topic Human Papillomavirus (HPV) Immunization (No Doses Required) Completed Meningococcal Immunization (ACWY) Aged Out No longer eligible based on patient's age to complete this topic Rotavirus Immunization Aged Out No lo nger eligible based on patient's age to complete [place] [address] MEDICARE C ESSENCE Care Teams Merchandise Flow Manager Relationship Specialty Start Date End Date Lynsey Nur MD [address] [facility] [address] [place] [address] PCP - General Family Medicine 12/06/20 Javon Viveros DO Gastroenterology 05/12/16
--- OUTSIDE RECORDS SUMMARY | 2025-10-14 00:12 | XMS_ITS | Encounter Summary ---
Author Organization [facility] Address [address] [place] [address] Phone Care Team Providers Care Mining Engineer Name Role Phone Pasha Gutierrez MD Primary Care Provider [phone] Pasha Gutierrez MD Unavailable [phone] Lynsey Nur MD Primary Care Provider Lynsey Nur MD Unavailable [phone] Yancy Romeo MD Unavailable [phone] Fina Todd MD Unavailable [phone] Nigel Herrmann MD Unavailable Ezekiel Duenas MD Unavailable [phone] Quintin Downey MD Unavailable [phone] Bipin Wetzel MD Unavailable Biipn Wetzel MD Unavailable Yancy Romeo MD Unavailable [phone] Raul Bunn MD Unavailable Nicki Villanueva MD Unavailable [phone] Maged Hercules MD Unavailable [phone] Maged Hercules MD Unavailable Vel Gilliam MD Primary Care Provider Nigel Elizalde MD Unavailable [phone] Issa Sanches MD Unavailable [phone] Miscellaneous, Not In File Unavailable Meredithva Vel Lazo MD Primary Care Provider [phone] Encounter Details Date Type Department Care Team [...] on file 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 SANCHEZ Pereira, [facility]. 12/13/2023 12/14/2023 12/24/2023 3:[address] documented as of this encounter Care Teams Mining Engineer Relationship Specialty Start Date End Date Pasha Gutierrez MD [address] [place] [address] [address] [address] PCP - General Internal Medicine 11/28/17 10/05/18 Lynsey Nur MD [address] [place] [address] [address] [place] [address] PCP - General Internal Medicine 10/06/18 07/29/21 Lynsey Nur MD [address] [place] [address] PCP - Essence Attributed PCP 10/24/15 06/15/22 Vel Gilliam MD [address] [facility] [place] [address] PCP - General Family Medicine 07/30/21 11/06/24 Vel Gilliam MD [address] [place] [address] PCP - General Family Medicine 11/07/24 Pasha Gutierrez MD [address] [place] [address] [address] [place] [address] 11/28/17 10/05/18 Yancy Romeo MD [address] [place] [address] Consulting Physician Rheumatology 03/05/19 04/07/20 Fina Todd MD [address] [place] [address] Guide Setter Dermatology 03/05/19 Nigel Herrmann MD [address] [place] [address] Surgeon Vascular Surgery 03/05/19 11/28/23 Ezekiel Duenas MD [address] [place] [address] Surgeon Orthopedic Surgery 03/06/19 11/28/23 Quintin Downey MD [address] [place] [address] Consulting Physician Nephrology 03/06/19 Bipin Wetzel MD [address] [facility] [place] [address] Referring Physician Cardiovascular Disease 12/28/19 Bipin Wetzel MD [address] [facility] [place] [address] Referring Physician Cardiovascular Disease 04/08/20 Yancy Romeo MD [address] [place] [address] Referring Physician Rheumatology 04/08/20 [place] [address] [place] [address] Consulting Physician Gastroenterology 08/04/20 0 Nicki Villanueva MD [address] [place] [address] Medical Oncologist/Hematologi st Hematology 08/04/20 09/29/20 Maged Hercules MD [address] [place] [address] Consulting Physician Hematology and Oncology 09/30/20 Maged Hercules MD [address] [place] [address] Medical Oncologist/Hematologi st Hematology and Oncology 09/30/20 Nigel Elizalde MD [address] [facility] [address] [place] [address] Consulting Physician Urology 11/29/23 Issa Sanches MD [address] [facility] [address], [place] [address] Consulting Physician Cardiology 11/29/23 Miscellaneous, Not In File 12/13/23 documented as of this encounter
--- OUTSIDE RECORDS SUMMARY | 2025-10-14 00:12 | XMS_ITS | Encounter Summary ---
Author Organization [facility] Healthcare Address [address] [place] [address] Care Team Providers Care Laborer Aquatic Life Name Role Phone Lynsey Nur MD Primary Care Provider Lynsey Nur MD Unavailable [phone] Yancy Romeo MD Unavailable [phone] Fina Todd MD Unavailable Nigel Herrmann MD Unavailable Ezekiel Duenas MD Unavailable Quintin Downey MD Unavailable [phone] Bipin Wetzel MD Unavailable Bipin Wetzel MD Unavailable Yancy Romeo MD Unavailable [phone] Raul Bunn MD Unavailable [phone] Nicki Villanueva MD Unavailable Maged Hercules MD Unavailable [phone] Maged Hercules MD Unavailable [phone] Vel Gilliam MD Primary Care Provider [phone] Nigel Elizalde MD Unavailable [phone] Issa Sanches MD Unavailable Miscellaneous, Not In File Unavailable Unava ilable Schueler, Vel F. 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 SANCHEZ Pereira, [facility]. 12/13/2023 12/14/2023 12/24/2023 3:05 AM PLUM PACKER documented as of this encounter Care Teams Laborer Aquatic Life Relationship Specialty Start Date End Date Lynsey Nur MD PCP - General Internal Medicine 10/06/18 07/29/21 Lynsey Nur MD [address] [place] [address] PCP - Essence Attributed PCP 10/24/15 06/15/22 Vel Gilliam MD [address] [place] [address] [place] [address] PCP - General Family Medicine 07/30/21 11/06/24 Vel Gilliam MD [address] [place] [address] PCP - General Family Medicine 11/07/24 Yancy Romeo MD [address] [place] [place] [address] Consulting Physician Rheumatology 03/05/19 04/07/20 Fina Todd MD [address] [place] [address] Health Technician Hearing Dermatology 03/05/19 Nigel Herrmann MD [address] [place] [address] Surgeon Vascular Surgery 03/05/19 11/28/23 Ezekiel Duenas MD [address] [place] [address] Surgeon Orthopedic Surgery 03/06/19 11/28/23 Quintin Downey MD [address] [place] [address] Consulting Physician Nephrology 03/06/19 Bipin Wetzel MD [address] [place] [address] Referring Physician Cardiovascular Disease 12/28/19 Bipin Wetzel MD [address] [place] [address] Referring Physician Cardiovascular Disease 04/08/20 Yancy Romeo MD [address] [facility] [address] [place] [address] Referring Physician Rheumatology 04/08/20 [place] [address] [place] [address] Consulting Physician Gastroenterology 08/04/20 0 Nicki Villanueva MD [address] [place] [address] Medical Oncologist/Hematologi Hematology 08/04/20 09/29/20 Maged Hercules MD [address] [place] [address] Consulting Physician Hematology and Oncology 09/30/20 Maged Hercules MD [address] [place] [address] Medical Oncologist/Hematologi Hematology and Oncology 09/30/20 Nigel Elizalde MD [address] [facility] [address] [place] [address] Consulting Physician Urology 11/29/23 Issa Sanches MD [address] [facility] [address] [place] [address] Consulting Physician Cardiology 11/29/23 Miscellaneous, Not In File 12/13/23 documented as of this encounter
--- NOTE | 2025-10-14 00:48 | ECG_ITS ---
Test Date: 2025-10-14 01:06:32 Measurements Intervals [place] Rate: 73 P: 72 MI: 345 QRS: -22 QRSD: 129 T: 164 QT: 421 QTc: 466 Interpretive Statements ELECTRONIC ATRIAL PACEMAKER ELECTRONIC VENTRICULAR PACEMAKER BASELINE ARTIFACT- I, II, III, AVR, AVL, AVF, V1-V6 NO FURTHER INTERPRETATION IS POSSIBLE ATYPICAL ECG Compared to ECG 10/14/2025 00:14:17 No significant changes Electronically Signed On 10-14-2025 06:46:46 WILDLIFE OFFICER by Christopher Coley D.O.
[2025-10-14 01:00] LABS: Alanine Aminotransferase 19 U/L (6-50); Albumin Level 3.8 g/dL (3.5-5.1); Alkaline Phosphatase 80 U/L (38-126); Anion Gap 13 mmol/L (4-12); Aspartate Amino Transferase 22 U/L (17-59); Bilirubin,Total 0.7 mg/dL (0.2-1.3); Blood Urea Nitrogen 64 mg/dL (9-20); Calcium 9.3 mg/dL (8.4-10.2); Carbon Dioxide 19 mmol/L (22-30); Chloride 105 mmol/L (98-107); Estimated CRCL calculation 13 ml/min; Estimated Glomerular Filt Rate 16; Glucose 105 mg/dL (65-110); Potassium 4.6 mmol/L (3.4-5.0); Sodium 137 mmol/L (137-145); Total Protein 6.8 g/dL (6.3-8.2)
--- NOTE | 2025-10-14 01:00 | PC.NURSE ---
Patient stating he is anxious and SOB. ERP notified and orders placed.
[2025-10-14] MEDS: ALPRAZolam (*CRX) 0.25 MG TABLET PO (01:03)
[2025-10-14 01:07] LABS: Hematocrit 30.3 % (42.0-52.0); Hemoglobin 9.9 g/dL (14.0-18.0); Immature Granulocyte Percent A 1.4 % (0-0.5); Lymphocytes Absolute Auto 0.54 K/mm3 (0.9-3.2); Mean Corpuscular HGB Conc 32.7 g/dl (32-36); Mean Corpuscular Hemoglobin 33.4 pg (26-34); Mean Corpuscular Volume 102.4 fl (80-100); Nucleated Red Blood Cells Absolute Auto 0.000 K/mm3 (0.0-0.012); Nucleated Red Blood Cells Perc 0.0 % (0.0-0.2); Platelet Count Result 215 k/mm3 (150-375); Red Blood Count 2.96 M/mm3 (4.6-6.20); White Blood Count 9.3 K/mm3 (4.5-10.0)
[2025-10-14 01:19] LABS: Troponin I 0.151 ng/mL (0.000-0.034)
[2025-10-14 01:23] LABS: Influenza A QL RT-PCR Negative (Negative); Influenza B QL RT-PCR Negative (Negative); RSV RNA, RT-PCR Negative (Negative); SARS-CoV-2 RNA PCR Negative (Negative)
[2025-10-14 01:37] LABS: NT Pro B Type Natriuretic Pept > 30000 pg/mL (19.9-100)
--- NOTE | 2025-10-14 02:04 | ED.GENADULT ---
HPI - General Adult General Chief complaint: Shortness of Breath/Dyspnea Stated complaint: SOB Time Seen by Provider: 10/14/25 00:00 History of Present Illness HPI narrative: Patient is a 4-year-old gentleman presents emergency department chief complaint of shortness of breath patient has history of anxiety and chronic kidney disease the patient reports over the last day he has been having increasing shortness of breath patient was found to be 86% on room air by EMS was placed on 2 L nasal cannula patient reports that his breathing has gotten worse reports he was given steroids by EMS Patient did report that he has been having upper respiratory symptoms recently patient does report that he has a fistula present in the right upper extremity with plans for dialysis in the future if his kidney disease worsens Related Data Home Medications ?Medication ?Instructions ?Recorded ?Confirmed ?Last Taken ?Type hydroxychloroquine 200 mg tablet 200 mg PO DAILY 07/27/20 10/12/25 03/07/25 09:00 History 200 mg fluticasone fur. 100 mcg-umeclid 1 inh inhalation .QD 12/22/23 10/12/25 03/07/25 09:00 History 62.5 mcg-vilant 25 mcg 1 inh inhalat.powder (Trelegy Ellipta) metoprolol succinate 100 mg 100 mg PO QAM 01/04/24 10/12/25 03/07/25 09:00 History tablet,extended release 24 hr 100 mg montelukast 10 mg tablet 10 mg PO HS 02/29/24 10/12/25 03/06/25 21:00 History 10 mg albuterol sulfate 90 mcg/actuation 2 puff inhalation Q6H PRN 08/12/24 10/12/25 03/07/25 12:00 History aerosol inhaler Shortness Of Breath 2 puff Allergies Allergy/AdvReac Type Severity Reaction Status Date / Time clonazepam AdvReac Mild Nightmare Verified 10/14/25 00:04 Review of Systems Review of Systems: A 10 system review of systems was completed on the patient and is negative except for what is stated in the HPI. Nursing and ancillary documentation was reviewed. [facility] Past Medical History Medical History Acute exacerbation of CHF (congestive heart failure) Acute hypoxic respiratory failure Hypoxemia Tobacco abuse Pacemaker CHF (congestive heart failure) Dr Fowler Prostate cancer Managed by Dr. Elizalde Recurrent inguinal hernia without obstruction or gangrene Renal mass, right Rheumatoid arthritis History of prostate cancer Overactive bladder COPD exacerbation Screening for thyroid disorder COVID Persistent cough Encounter to establish care Orthostasis Erythropoietin deficiency anemia Rectus diastasis Peripheral artery disease With moderately decreased ABIs bilaterally December 2011 Monoclonal gammopathy Near syncope Sjogrens syndrome Spinal stenosis at L4-L5 level Bilateral carotid artery stenosis 50 to 69% stenosis on the right and greater than 70% stenosis on the left Lupus (systemic lupus erythematosus) Obstructive sleep apnea With nasal CPAP use Essential hypertension CKD (chronic kidney disease) Stage III managed by Dr. Quintin Downey Surgical History Surgical History History of prostate surgery H/O bilateral inguinal hernia repair pen reccurent RIH and open L ing. hernia rep w/ mesh 03/12/24 S/P bilateral inguinal hernia repair History of permanent cardiac pacemaker placement 2021 Hx of left inguinal hernia repair 2015, repair of mesh failure History of right inguinal hernia repair 2015, previous repair of mesh failure History of total bilateral knee replacement With the right knee being replaced once in the left knee being replaced 3 times with chronic left knee pain Family History Family History Mother Cirrhosis Sibling Esophageal cancer Father Acute myocardial infarction Lung disease Heart disease Sibling Esophageal cancer Skin cancer Social History Social History Social History: Patient continues to smoke half a pack a day. Denies drug use. No alcohol use. Lives at home with his and daughter. 3 dogs. Patient smoked half a pack a day (stopped 1 month ago). Denies drug use. No alcohol use. Code status: Full code Healthcare power of litigation attorney: Linda Frank () Smoking packs per day: 0.5 Smoking cigarettes per day: 10.0 Years smoked: 65 Smoking pack-years: 32.50 Smoking status: Current every day smoker Tobacco type: cigarettes Second hand tobacco smoke exposure: No Smoking end date: 03/07/25 Additional smoking assessment comments: SMOKING 0.5 PACK/DAY Alcohol intake: never Substance use: never Substance use type: does not use Lack of Transportation: No Lack of Food: Never True Current Housing: I Have Housing Concerned About Future Housing: No Difficulty Paying Gas/Electric Bills: No Difficulty Paying for Meds: No Currently Unemployed: No Education: High School Diploma/GED Difficulty w/ Childcare or Family Care: No Living arrangements: with family Additional living arrangements comments: and daughter Occupation/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 HEAD: Normocephalic, atraumatic. EYES: PERRLA and EOMI. ENT: Nares clear, no rhinorrhea or epistaxis. Mucous membranes moist. NECK: Supple. CHEST: Clear to auscultation. No respiratory distress. HEART: Regular rate and rhythm. No murmur heard. Normal peripheral pulses. ABDOMEN: Soft, nontender, nondistended, normal active bowel sounds. EXTREMITIES: Normal range of motion. No edema. SKIN: Warm, dry, no rash. NEURO: No focal deficits. Alert and oriented x3. PSYCH: Normal mood and affect. Course Vital Signs Vital signs: Vital Signs Temperature 36.6 C 10/13/25 23:51 Pulse Rate 80 10/13/25 23:51 Respiratory Rate 20 10/13/25 23:51 Blood Pressure 122/65 10/13/25 23:51 Pulse Oximetry 88 L 10/13/25 23:51 Oxygen Delivery Room Air 10/13/25 23:51 Temperature 36.6 C 10/13/25 23:51 Pulse Rate 96 10/14/25 01:25 Respiratory Rate 25 H 10/14/25 01:02 Blood Pressure 104/91 H 10/14/25 01:02 Pulse Oximetry 98 10/14/25 01:55 Oxygen Delivery BiPAP 10/14/25 01:45 Oxygen Flow Rate 2 10/14/25 00:01 Fraction of Inspired Oxygen 10/14/25 01:55 MDM Differential Diagnosis Differential Diagnosis: Fluid overload, renal failure, pulmonary edema, pleural effusion, pneumonia, COVID, flu, RSV Chest x-ray showed a large right-sided pleural effusion Laboratory studies were obtained that did show a troponin leak at 0.151 BNP was greater than 30,000 hemoglobin was 9.9 this is around the patient's baseline creatinine was 3.6 with a BUN of 64 the patient's creatinine is normally over 4 COVID flu RSV are negative The patient was placed on BiPAP as he is having difficulty breathing oxygen saturations currently 98% on BiPAP with 2 L of oxygen Lab Data 10/14/25 00:39 10/14/25 00:39 Labs: Lab Results 10/14/25 10/14/25 Range/Units 00:39 00:39 WBC 9.3 (4.5-10.0) K/mm3 RBC 2.96 L (4.6-6.20) M/mm3 Hgb 9.9 L (14.0-18.0) g/dL Hct 30.3 L (42.0-52.0) % MCV 102.4 H (80-100) fl MCH 33.4 (26-34) pg MCHC 32.7 (32-36) g/dl RDW 12.7 (11.5-14.5) % Plt Count 215 (150-375) k/mm3 MPV 10.2 (7.4-10.4) fl Immature Gran % (Auto) 1.4 H (0-0.5) % Neut % (Auto) 85.4 H (45.5-73.1) % Lymph % (Auto) 5.8 L (18.3-44.2) % Ashley % (Auto) 5.5 (2.6-8.5) % Eos % (Auto) 1.6 (0-4.4) % Baso % (Auto) 0.3 (0.2-1.2) % Lymph # (Auto) 0.54 L (0.9-3.2) K/mm3 Ashley # (Auto) 0.5 (0.1-0.6) K/mm3 Eos # (Auto) 0.2 (0-0.3) K/mm3 Baso # (Auto) 0.0 (0.0-0.1) K/mm3 Abs Immat Gran (auto) 0.13 H (0.00-0.031) K/mm3 Absolute Neuts (auto) 8.0 H (1.3-6.7) K/mm3 Absolute Nucleated RBC 0.000 (0.0-0.012) K/mm3 Nucleated RBC % 0.0 (0.0-0.2) % Sodium 137 (137-145) mmol/L Potassium 4.6 (3.4-5.0) mmol/L Chloride 105 (98-107) mmol/L Carbon Dioxide 19 L (22-30) mmol/L Anion Gap 13 H (4-12) mmol/L BUN 64 H D (9-20) mg/dL Creatinine 3.60 H (0.7-1.3) mg/dL Estim Creat Clear Calc 13 ml/min Estimated GFR 16 L (59 - ) Glucose 105 (65-110) mg/dL Calcium 9.3 (8.4-10.2) mg/dL Total Bilirubin 0.7 (0.2-1.3) mg/dL AST 22 (17-59) U/L ALT 19 (6-50) U/L Alkaline Phosphatase 80 (38-126) U/L Troponin I 0.151 H* (0.000-0.034) ng/mL NT-Pro-B Natriuret Pep > 35626 H Cancelled (19.9-100) pg/mL Total Protein 6.8 (6.3-8.2) g/dL Albumin 3.8 (3.5-5.1) g/dL Influenza A (RT-PCR) Negative (Negative) Influenza B (RT-PCR) Negative (Negative) RSV (RT-PCR) Negative (Negative) SARS-CoV-2 RNA (RT-PCR) Negative (Negative) Discharge Plan Discharge Clinical Impression: Pleural effusion, Elevated troponin, Chronic kidney disease Patient Disposition: Still a Patient Condition: Stable Patient Language: Italian Prescriptions: No Action finasteride [Proscar] 5 mg tablet 5 mg PO QAM Qty: 90 1RF tamsulosin 0.4 mg Capsule 0.4 mg PO QAM Qty: 30 1RF albuterol sulfate 90 mcg/actuation HFA aerosol inhaler 2 puff INHALATION Q6H PRN (Reason: Shortness Of Breath) Patient Comments: . hydroxychloroquine 200 mg tablet 200 mg PO DAILY Trelegy Ellipta 100-62.5-25 mcg blister with device 1 inh INHALATION .QD montelukast 10 mg tablet 10 mg PO HS aspirin 81 mg Tablet,Delayed Release (Dr/Ec) 81 mg PO QAM Qty: 30 0RF Patient Comments: . fluticasone propionate 50 mcg/actuation Cas[place],Suspension 2 spray intranasal QAM Qty: 30 0RF metoprolol succinate 100 mg tablet extended release 24 hr 100 mg PO QAM sodium bicarbonate 650 mg tablet See Rx Instructions .ROUTE .COMPLEX Qty: 180 3RF Dose Instruction: TAKE 1 TABLET BY MOUTH TWICE A DAY Rx Instructions: TAKE 1 TABLET BY MOUTH TWICE A DAY sennosides-docusate sodium [Senokot-S] 8.6-50 mg tablet 2 tab-cap PO BID Qty: 120 2RF sertraline 50 mg tablet 50 mg PO DAILY Qty: 90 0RF simvastatin 10 mg tablet See Rx Instructions .ROUTE .COMPLEX Qty: 90 3RF Dose Instruction: TAKE 1 TABLET BY MOUTH EVERY DAY Rx Instructions: TAKE 1 TABLET BY MOUTH EVERY DAY bumetanide 1 mg tablet 1 mg PO Q12H Qty: 180 0RF ferrous sulfate 324 mg (65 mg iron) tablet,delayed release (DR/EC) 324 mg PO DAILY Qty: 30 5RF nystatin 100,000 unit/gram ointment 1 applic topical BID Qty: 15 0RF ketoconazole 2 % shampoo 1 applic topical 3XW Qty: 120 0RF alprazolam 0.25 mg tablet 0.25 mg PO BID PRN (Reason: anxiety) Qty: 60 0RF Rx Instructions: Tolerates this, has been on before amlodipine 10 mg tablet 10 mg PO .q12hr Qty: 90 0RF eszopiclone [Lunesta] 1 mg tablet 1 mg PO QHS Qty: 30 0RF Follow-up/Referrals: Vel Gilliam MD [Primary Care Provider, Family Practice]
--- NOTE | 2025-10-14 03:03 | ECG_ITS ---
Test Date: 2025-10-14 03:14:51 Measurements Intervals [place] Rate: 77 P: -85 [place]: 345 QRS: -39 QRSD: 193 T: 128 QT: 504 QTc: 571 Interpretive Statements ELECTRONIC ATRIAL PACEMAKER ELECTRONIC VENTRICULAR PACEMAKER WITH VENTRICULAR PREMATURE COMPLEX BASELINE ARTIFACT- I, II, AVR, AVL, AVF, V2-V3 NO FURTHER INTERPRETATION IS POSSIBLE ATYPICAL ECG Compared to ECG 10/14/2025 01:06:32 No significant changes Electronically Signed On 10-14-2025 06:48:24 [employer]TER by Christopher Coley D.O.
[2025-10-14 03:53] LABS: Troponin I 0.143 ng/mL (0.000-0.034)
--- NOTE | 2025-10-14 04:40 | WPCEDHO ---
ED Hand Off Checklist All vitals saved:Yes IV Site documented:Yes All med administrations documented:Yes Triage Note Triage Note Patient arrives to room via EMS 10/13/25 23:51 from home with cc of SOB. Patient has hx of copd. Patient states he was not feeling well this AM and started to have more work of breathing throughout the day. Patient was initially 86% on RA for EMS, placed on 2L via NC, given abuterol tx and 10mg decadron and O2 increased to 96%. Patient denies any cp. Patient states he has had a cold or cold symptoms all week as well as other members of his family. Patient arrives at 88% on RA, placed on 2L via NC and O2 increased to 95%. Patient states he does not normally wear oxygen at home. Allergies clonazepam Adverse Reaction (Mild, Verified 10/14/25 00:04) Nightmare Family History (Last Reviewed 10/14/25 @ 02:05 by Bart Rdz MD) Mother Cirrhosis Sibling Esophageal cancer Father Acute myocardial infarction Lung disease Heart disease Sibling Esophageal cancer Skin cancer Administered/Completed Medications Discontinued Medications Alprazolam (Alprazolam (*Crx) 0.25 Mg Tablet) 0.25 mg PO ONCE STA Stop: 10/14/25 01:00 Last Admin: 10/14/25 01:03 Dose: 0.25 mg Documented By: [facility] Notes 10/14/25 01:00 Nurse Note by Roxanne Cabral Patient stating he is anxious and SOB. ERP notified and orders placed. Initialized on 10/14/25 01:00 - END OF NOTE Interventions/Assessments Cardiac Monitoring Start: 10/13/25 23:41 Freq: Status: Active Protocol: Document 10/14/25 00:01 [facility] (Rec: 10/14/25 00:04 [facility] [id number]) Mapping Specialist Assessment Mapping Specialist Yes Applied Pulse Rate (60-100) 70 EKG Rythm Sinus Rhythm,Paced-Implanted IV / Saline Lock, Insert Start: 10/13/25 23:41 Freq: Status: Active Protocol: Document 10/14/25 00:01 [facility] (Rec: 10/14/25 00:04 [facility] [id number]) IV Assessment Peripheral Access Left Antecubital IV Catheter Access Initiated Before Arrival IV Insertion Date 10/14/25 Catheter Gauge 20 IV Site Assessment WNL IV Care and WNL Maintenance IV / Saline Lock, Insert Start: 10/14/25 00:07 Freq: STAT Status: Active Protocol: Document 10/14/25 00:28 [facility] (Rec: 10/14/25 00:28 [facility] [id number]) IV Assessment Peripheral Access Left Forearm IV Catheter Access Initiated IV Insertion Date 10/14/25 IV Insertion Time 00:28 Catheter Gauge 20 IV Insertion 1 Attempts Ultrasound Used for No Placement IV Site Assessment WNL IV Care and WNL Maintenance Peripheral Access Left Antecubital IV Catheter Access Continued IV Insertion Date 10/14/25 Catheter Gauge 20 IV Site Assessment WNL IV Care and WNL Maintenance PA: Cardiovascular Assessment Start: 10/13/25 23:41 Freq: Status: Active Protocol: Document 10/14/25 00:01 [facility] (Rec: 10/14/25 00:04 [facility] [id number]) Cardiovascular Assessment Cardiovascular Dyspnea Symptoms Skin Description Normal Color Heart Sounds Normal Jugular Vein None Distention Chest Pain Assessment Chest Pain Intensity 0 Description and Dyspnea Symptoms Chest Pain Duration > 6 Hours Jugular Vein None Distention PA: Respiratory Assessment Start: 10/13/25 23:41 Freq: Status: Active Protocol: Document 10/14/25 00:01 [facility] (Rec: 10/14/25 00:04 [facility] [id number]) Oxygen Delivery Oxygen Delivery Nasal Cannula Oxygen Flow Rate 2 Pulse Oximetry (90- 95 100) Comments RA sat was 88%, placed on 2L via NC. Respiratory Assessment Symptoms Congestion,Cough,Shortness of Breath at Rest,Shortness of Breath With Exertion Effort Normal Pattern Regular Depth Normal Chest Expansion Symmetrical Adult Capillary Normal/Less than 2 Seconds Refill Anterior Bilateral Throughout Phase Inspiratory & Expiratory Lung Sounds Clear Cough Description Acute Cough Frequency Intermittent Cough Reflex Present Last Vital Signs Temperature 97.6 F 10/14/25 04:39 Pulse Rate 70 10/14/25 04:39 Respiratory Rate 24 H 10/14/25 04:39 Pulse Oximetry 97 10/14/25 04:39 Blood Pressure 158/63 H 10/14/25 04:39 Blood Pressure Mean 94 10/14/25 04:39 Blood Pressure Position Sitting 10/14/25 04:39 Oxygen Delivery BiPAP 10/14/25 03:49 Oxygen Flow Rate 2 10/14/25 00:01 Fraction of Inspired Oxygen 21 10/14/25 03:49 Weight 68.9 kg 10/13/25 23:51 Last Result - Abnormals Only RBC 2.96 M/mm3 (4.6-6.20) L 10/14/25 00:39 Hgb 9.9 g/dL (14.0-18.0) L 10/14/25 00:39 Hct 30.3 % (42.0-52.0) L 10/14/25 00:39 MCV 102.4 fl (80-100) H 10/14/25 00:39 Immature Gran % (Auto) 1.4 % (0-0.5) H 10/14/25 00:39 Neut % (Auto) 85.4 % (45.5-73.1) H 10/14/25 00:39 Lymph % (Auto) 5.8 % (18.3-44.2) L 10/14/25 00:39 Lymph # (Auto) 0.54 K/mm3 (0.9-3.2) L 10/14/25 00:39 Abs Immat Gran (auto) 0.13 K/mm3 (0.00-0.031) H 10/14/25 00:39 Absolute Neuts (auto) 8.0 K/mm3 (1.3-6.7) H 10/14/25 00:39 Carbon Dioxide 19 mmol/L (22-30) L 10/14/25 00:39 Anion Gap 13 mmol/L (4-12) H 10/14/25 00:39 BUN 64 mg/dL (9-20) H D 10/14/25 00:39 Creatinine 3.60 mg/dL (0.7-1.3) H 10/14/25 00:39 Estimated GFR 16 (59-) L 10/14/25 00:39 Troponin I 0.143 ng/mL (0.000-0.034) H* 10/14/25 03:20 NT-Pro-B Natriuret Pep > 37106 pg/mL (19.9-100) H 10/14/25 00:39 Most Recent Suicide Severity Rating Suicide Severity Rating NO RISK INDICATED 10/13/25 23:51
--- NOTE | 2025-10-14 05:34 | ADMGEN ---
This patient, Abdirizak Frank, was admitted to IMU Room 231-01 at 0500. Patient/family oriented to hospital policies and general routines including ID bracelet, bed and alarms, visiting hours, pain management, procedures, bathroom and other care routines, personal items, smoking policy, room service/diet, and visiting hours. Information on how to activate the Rapid Response Team has been discussed. Patient/Family are encouraged to report perceived risks to care and to ask questions if they do not understand what they are told or what they should do.
--- NOTE | 2025-10-14 07:56 | PM.IMHP2 ---
H&P: HPI History of Present Illness Date/Time: 10/14/25 07:56 Chief Complaint: sob Narrative: 84-year-old gentleman who has multiple medical problems including chronic kidney disease stage 4, 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 He is following with nephrology and saw DR Downey last week. He reports he was having diarrhea and poor appetite. He started to have more anxiety and sob that he decided ot come to ER. He was found have a very large right pleural effusion for which thoracentesis ordered. He also had some signs of pulmonary edema. No fevers or chills. He smokes a few cigarettes per day but he does not drink alcohol. In ED: Chest x-ray showed a large right-sided pleural effusion Laboratory studies were obtained that did show a troponin leak at 0.151 BNP was greater than 30,000 hemoglobin was 9.9 this is around the patient's baseline creatinine was 3.6 with a BUN of 64 the patient's creatinine is normally over 4 COVID flu RSV are negative The patient was placed on BiPAP as he is having difficulty breathing oxygen saturations currently 98% on BiPAP with 2 L of oxygen Review of Systems Review of Systems: All systems reviewed & are unremarkable except as noted in HPI and below PMFSH Past Medical History Medical History Pacemaker Acute exacerbation of CHF (congestive heart failure) Acute hypoxic respiratory failure Hypoxemia CHF (congestive heart failure) Dr Fowler Tobacco abuse Renal mass, right Rheumatoid arthritis History of prostate cancer Overactive bladder Recurrent inguinal hernia without obstruction or gangrene COPD exacerbation Screening for thyroid disorder COVID Persistent cough Encounter to establish care Orthostasis Erythropoietin deficiency anemia Rectus diastasis Prostate cancer Managed by Dr. Elizalde Peripheral artery disease With moderately decreased ABIs bilaterally December 2011 Monoclonal gammopathy Near syncope Sjogrens syndrome Spinal stenosis at L4-L5 level Bilateral carotid artery stenosis 50 to 69% stenosis on the right and greater than 70% stenosis on the left Lupus (systemic lupus erythematosus) Obstructive sleep apnea With nasal CPAP use Essential hypertension CKD (chronic kidney disease) Stage III managed [address] Dr. Quintin Downey Surgical History Surgical History History of prostate surgery H/O bilateral inguinal hernia repair pen reccurent RI and open L ing. hernia rep w/ mesh 03/12/24 S/P bilateral inguinal hernia repair History of permanent cardiac pacemaker placement 2021 Hx of left inguinal hernia repair 2016, repair of mesh failure History of right inguinal hernia repair 2016, previous repair of mesh failure History of total bilateral knee replacement With the right knee being replaced once in the left knee being replaced 3 times with chronic left knee pain Family History Family History Mother Cirrhosis Sibling Esophageal cancer Father Acute myocardial infarction Lung disease Heart disease Sibling Esophageal cancer Skin cancer Social History Social History Social History: Patient continues to smoke half a pack a day. Denies drug use. No alcohol use. Lives at home with his and daughter. 3 dogs. Patient smoked half a pack a day (stopped 1 month ago). Denies drug use. No alcohol use. Code status: Full code Healthcare power of trophy assembler: Linda Frank () Smoking packs per day: 0.5 Smoking cigarettes per day: 10.0 Years smoked: 65 Smoking pack-years: 32.50 Smoking status: Current every day smoker Tobacco type: cigarettes Second hand tobacco smoke exposure: No Smoking end date: 03/07/25 Additional smoking assessment comments: SMOKING 0.5 PACK/DAY Alcohol intake: never Substance use: never Substance use type: does not use Lack of Transportation: No Lack of Food: Never True Current Housing: I Have Housing Concerned About Future Housing: No Difficulty Paying Gas/Electric Bills: No Difficulty Paying for Meds: No Currently Unemployed: No Education: High School Diploma/GED Difficulty w/ Childcare or Family Care: No Living arrangements: with family Additional living arrangements comments: and daughter Occupation/Education: 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 100 mcg-umeclid 1 inh inhalation .QD 12/22/23 10/14/25 History 62.5 mcg-vilant 25 mcg inhalat.powder (Trelegy Ellipta) metoprolol succinate 100 mg 100 mg PO QAM 01/04/24 10/14/25 History tablet,extended release 24 hr montelukast 10 mg tablet 10 mg PO HS 02/29/24 10/14/25 History tamsulosin 0.4 mg capsule 0.4 mg PO QAM #30 caps 05/26/24 10/14/25 Rx aspirin 81 mg tablet,delayed 81 mg PO QAM #30 tabs 06/12/24 10/14/25 Rx release albuterol sulfate 90 mcg/actuation 2 puff inhalation Q6H PRN 08/12/24 10/14/25 History aerosol inhaler Shortness Of Breath sodium bicarbonate 650 mg tablet See Rx Instructions .Route 11/12/24 10/14/25 Rx .COMPLEX #180 tabs fluticasone propionate 50 2 spray intranasal QAM #30 grams 03/11/25 10/14/25 Rx mcg/actuation nasal spray,suspension sertraline 50 mg tablet 50 mg PO DAILY #90 tabs 06/03/25 10/14/25 Rx simvastatin 10 mg tablet See Rx Instructions .Route 06/10/25 10/14/25 Rx .COMPLEX #90 tabs finasteride 5 mg tablet (Proscar) 5 mg PO QAM #90 tabs 07/01/25 10/14/25 Rx bumetanide 1 mg tablet 1 mg PO Q12H #180 tabs 07/09/25 10/14/25 Rx Held on 10/14/25. Instructions: .Provider Order ferrous sulfate 324 mg (65 mg 324 mg PO DAILY #30 tabs 07/19/25 10/14/25 Rx iron) tablet,delayed release alprazolam 0.25 mg tablet 0.25 mg PO BID PRN anxiety #60 tabs 09/17/25 10/14/25 Rx amlodipine 10 mg tablet 10 mg PO .q12hr #90 tabs 09/17/25 10/14/25 Rx eszopiclone 1 mg tablet (Lunesta) 1 mg PO QHS #30 tabs 10/03/25 10/14/25 Rx sennosides 8.6 mg-docusate sodium 2 tab-cap PO BID PRN constipation 10/14/25 10/14/25 History 50 mg tablet (Senokot-S) Allergies Allergy/AdvReac Type Severity Reaction Status Date / Time clonazepam AdvReac Mild Nightmare Verified 10/14/25 09:22 Vital Signs Vital Signs - 24 hr 10/13/25 23:51 10/14/25 00:01 10/14/25 00:01 Temperature 97.8 F Pulse Rate 80 70 Respiratory Rate 20 Blood Pressure 122/65 Pulse Oximetry 88 L 95 Oxygen Delivery Room Air Nasal Cannula Oxygen Flow Rate 2 Fraction of Inspired Oxygen 10/14/25 00:06 10/14/25 00:15 10/14/25 00:30 Temperature Pulse Rate 78 70 75 Respiratory Rate 38 H 21 H 21 H Blood Pressure Pulse Oximetry 97 94 Oxygen Delivery Oxygen Flow Rate Fraction of Inspired Oxygen 10/14/25 00:31 10/14/25 00:45 10/14/25 01:00 Temperature Pulse Rate 70 71 70 Respiratory Rate 36 H 20 29 H Blood Pressure 131/54 L Pulse Oximetry 94 Oxygen Delivery Oxygen Flow Rate Fraction of Inspired Oxygen 10/14/25 01:02 10/14/25 01:15 10/14/25 01:25 Temperature Pulse Rate 91 76 96 Respiratory Rate 25 H 22 H Blood Pressure 104/91 H Pulse Oximetry 98 98 Oxygen Delivery BiPAP Oxygen Flow Rate Fraction of Inspired Oxygen 10/14/25 01:25 10/14/25 01:35 10/14/25 01:45 Temperature Pulse Rate Respiratory Rate Blood Pressure Pulse Oximetry 98 90 100 Oxygen Delivery BiPAP BiPAP BiPAP Oxygen Flow Rate Fraction of Inspired Oxygen 28 50 30 10/14/25 01:45 10/14/25 01:55 10/14/25 01:55 Temperature Pulse Rate 70 79 Respiratory Rate 26 H 30 H Blood Pressure 136/68 Pulse Oximetry 100 98 95 Oxygen Delivery Oxygen Flow Rate Fraction of Inspired Oxygen 10/14/25 02:00 10/14/25 02:01 10/14/25 02:15 Temperature Pulse Rate 70 78 70 Respiratory Rate 21 H 34 H 25 H Blood Pressure 135/63 Pulse Oximetry 96 95 97 Oxygen Delivery Oxygen Flow Rate Fraction of Inspired Oxygen 10/14/25 02:30 10/14/25 02:31 10/14/25 02:32 Temperature Pulse Rate 70 70 70 Respiratory Rate 20 18 19 Blood Pressure 137/59 L Pulse Oximetry 98 97 99 Oxygen Delivery Oxygen Flow Rate Fraction of Inspired Oxygen 10/14/25 02:45 10/14/25 02:55 10/14/25 03:00 Temperature Pulse Rate 70 70 Respiratory Rate 20 20 Blood Pressure Pulse Oximetry 96 Oxygen Delivery BiPAP Oxygen Flow Rate Fraction of Inspired Oxygen 10/14/25 03:01 10/14/25 03:15 10/14/25 03:30 Temperature Pulse Rate 70 83 73 Respiratory Rate 20 22 H 20 Blood Pressure 138/58 L Pulse Oximetry 95 Oxygen Delivery Oxygen Flow Rate Fraction of Inspired Oxygen 10/14/25 03:31 10/14/25 03:45 10/14/25 03:49 Temperature Pulse Rate 73 70 73 Respiratory Rate 20 20 19 Blood Pressure 147/64 H Pulse Oximetry 99 96 Oxygen Delivery BiPAP Oxygen Flow Rate Fraction of Inspired Oxygen 10/14/25 03:49 10/14/25 04:00 10/14/25 04:01 Temperature Pulse Rate 70 71 Respiratory Rate 17 20 Blood Pressure 155/64 H Pulse Oximetry 96 94 93 Oxygen Delivery BiPAP Oxygen Flow Rate Fraction of Inspired Oxygen 10/14/25 04:15 10/14/25 04:39 10/14/25 04:44 Temperature 97.6 F 97.6 F Pulse Rate 72 70 77 Respiratory Rate 20 24 H 20 Blood Pressure 158/63 H 158/63 H Pulse Oximetry 97 97 Oxygen Delivery Oxygen Flow Rate Fraction of Inspired Oxygen 10/14/25 05:15 10/14/25 06:00 Temperature 97.6 F Pulse Rate 71 90 Respiratory Rate 27 H Blood Pressure 155/67 H Pulse Oximetry 98 Oxygen Delivery Oxygen Flow Rate Fraction of Inspired Oxygen Exam Const: General: comfortable Resp: Auscultation: diminished lung sounds Cardio: Rate: regular rate Rhythm: regular rhythm GI: GI Palp: Yes Soft to palpation Auscultation: normal bowel sounds Neuro: Speech: normal speech Motor exam (neuro): 5/5 motor strength present throughout Psych: Affect: normal affect Results Labs Labs: Short CBC 10/14/25 Range/Units 00:39 WBC 9.3 (4.5-10.0) K/mm3 Hgb 9.9 L (14.0-18.0) g/dL Hct 30.3 L (42.0-52.0) % Plt Count 215 (150-375) k/mm3 BMP 12/22/25 00:39 Sodium 137 Potassium 4.6 Chloride 105 Carbon Dioxide 19 L BUN 64 H D Creatinine 3.60 H Glucose 105 Calcium 9.3 Cardiac Enzymes 10/14/25 10/14/25 Range/Units 00:39 03:20 Troponin I 0.151 H* 0.143 H* (0.000-0.034) ng/mL Liver Function 10/14/25 Range/Units 00:39 Total Bilirubin 0.7 (0.2-1.3) mg/dL AST 22 (17-59) U/L ALT 19 (6-50) U/L Alkaline Phosphatase 80 (38-126) U/L Albumin 3.8 (3.5-5.1) g/dL Quality VTE Prophylaxis VTE prophylaxis: pharmacologic ordered Assessment and Plan Assessment and plan (1) Essential (primary) hypertension: Code(s): I10 - Essential (primary) hypertension Status: Chronic (2) CHF (congestive heart failure): Qualifiers: Heart failure chronicity: unspecified Heart failure type: unspecified Qualified Code(s): I50.9 - Heart failure, unspecified Code(s): I50.9 - Heart failure, unspecified Status: Suspected Assessment and Plan: diuretics as below contiue epifanio meds (3) Pacemaker: Code(s): Z95.0 - Presence of cardiac pacemaker Status: Acute (4) Stage 4 chronic kidney disease: Code(s): N18.4 - Chronic kidney disease, stage 4 (severe) Status: Chronic Assessment and Plan: His baseline creatinine runs between 3-1/2 and 4. lasix 40mg IV q.12 hours. nephrology consulted (5) Anemia: Qualifiers: Anemia type: unspecified type Qualified Code(s): D64.9 - Anemia, unspecified Code(s): D64.9 - Anemia, unspecified Status: Chronic (6) COPD (chronic obstructive pulmonary disease): Qualifiers: COPD type: COPD with acute exacerbation Qualified Code(s): J44.1 - Chronic obstructive pulmonary disease with (acute) exacerbation Code(s): J44.9 - Chronic obstructive pulmonary disease, unspecified Status: Chronic (7) Pleural effusion: Code(s): J90 - Pleural effusion, not elsewhere classified Status: Acute Assessment and Plan: diagnostic thoracentesis today- labs ordered monitor resp status (8) Obstructive sleep apnea: Code(s): G47.33 - Obstructive sleep apnea (adult) (pediatric) Status: Chronic Assessment and Plan: continue cpap Plan 84-year-old gentleman who has multiple medical problems including chronic kidney disease stage 4, 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 Chest x-ray showed a large right-sided pleural effusion Laboratory studies were obtained that did show a troponin leak at 0.151 BNP was greater than 30,000 hemoglobin was 9.9 this is around the patient's baseline creatinine was 3.6 with a BUN of 64 the patient's creatinine is normally over 4 COVID flu RSV are negative The patient was placed on BiPAP as he is having difficulty breathing oxygen saturations currently 98% on BiPAP with 2 L of oxygen Prior Studies I have reviewed the following patient records and this information was taken into consideration when formulating the assessment and plan.: previous labs Time Spent with Patient Time with patient: less than 45 minutes
--- NOTE | 2025-10-14 07:58 | PC.NURSE ---
to go home and will call back with medication list from home.
--- NOTE | 2025-10-14 08:15 | PM.CNNEP ---
Assessment and Plan Assessment and plan (1) Chronic kidney disease: Code(s): N18.9 - Chronic kidney disease, unspecified Status: Acute Assessment and Plan: The patient has chronic kidney disease. His baseline creatinine runs between 3-1/2 and 4. Last week his creatinine was up to 4.2 in the face of diarrhea plus poor intake. His diarrhea is better and he is off his Bumex is creatinine is down but unfortunately he has developed fluid overload. So now we will give him diuretics to try to get rid of the fluid. He is going to get a thoracentesis as well. I talked with the at length in the presence of the patient. It looks like this is being a being on problem with elevated creatinine plus volume overload which is more difficult to treat with medicines alone. He may be getting closer to dialysis. I Do not know if this will be this admission or not. at this point he is getting Lasix 40mg IV q.12 hours. Will see how he does with this according to the intake /output and his clinical exam. Will follow his BUN and creatinine as we go. (2) Pleural effusion: Code(s): J90 - Pleural effusion, not elsewhere classified Status: Acute Assessment and Plan: The patient will get a thoracentesis (3) Anemia: Qualifiers: Anemia type: unspecified type Qualified Code(s): D64.9 - Anemia, unspecified Code(s): D64.9 - Anemia, unspecified Status: Chronic Assessment and Plan: hemoglobin is 9.9. Will follow this along. He does not need Epogen at this point (4) MGUS (monoclonal gammopathy of unknown significance): Code(s): D47.2 - Monoclonal gammopathy Status: Acute Assessment and Plan: he sees Dr. Adilson mullins for this. (5) Essential (primary) hypertension: Code(s): I10 - Essential (primary) hypertension Status: Chronic Assessment and Plan: Blood pressure is under good control (6) Obstructive sleep apnea: Code(s): G47.33 - Obstructive sleep apnea (adult) (pediatric) Status: Chronic Assessment and Plan: he uses a CPAP machine at home (7) COPD (chronic obstructive pulmonary disease): Qualifiers: COPD type: COPD with acute exacerbation Qualified Code(s): J44.1 - Chronic obstructive pulmonary disease with (acute) exacerbation Code(s): J44.9 - Chronic obstructive pulmonary disease, unspecified Status: Chronic Assessment and Plan: he will get supportive care (8) CHF (congestive heart failure): Qualifiers: Heart failure type: unspecified Heart failure chronicity: unspecified Qualified Code(s): I50.9 - Heart failure, unspecified Code(s): I50.9 - Heart failure, unspecified Status: Suspected Assessment and Plan: will diurese as above History of Present Illness Reason for Consult Consult date: 10/14/25 Chief Complaint Chief complaint: Pleural effusion, Dyspnea, Chronic kidney disease History of Present Illness Narrative: Abdirizak is a very pleasant 84-year-old gentleman who has multiple medical problems including chronic kidney disease stage 4, he has a fistula in his right arm, history of congestive heart failure, pacemaker, sleep apnea, COPD, peripheral vascular disease with decreased ABIs bilaterally, lupus, Sjogren syndrome, rheumatoid arthritis, hypertension, monoclonal gammopathy, and he still smokes. The patient was in my office last week. At the time he was having diarrhea. His creatinine was up a little bit. He felt poorly with a poor appetite. He was instructed to take anti diarrheal medication, call Dr. Nithya velázquez about the diarrhea, hold the Bumex for now, and call if he feels worse. Yesterday the patient started getting short of breath. Is very anxious. At 1st he did not want to go to the emergency room but eventually became tired and so came to the ER last night. In the ER he was evaluated. He was found have a very large right pleural effusion. He also had some signs of pulmonary edema. His says that they have been taking Imodium since they were in the office and has not had any stools at all for the last 3 days. No fevers or chills. He smokes a few cigarettes per day but he does not drink alcohol. Review of Systems Constitutional: Constitutional: Reports no additional constitutional complaints Eyes: Eyes: Reports no additional eye complaints ENT: Reports system reviewed and no additional complaints, except as documented Cardiovascular: Cardiovascular: Reports no additional cardiovascular complaints Respiratory: Respiratory: Reports no additional respiratory complaints Gastrointestinal: Gastrointestinal: Reports no additional gastrointestinal complaints Genitourinary: Genitourinary: Reports no additional male genitourinary complaints Musculoskeletal: Musculoskeletal: Reports no additional musculoskeletal complaints Integumentary/Breasts: Skin/Breast: Reports system reviewed and no additional complaints, except as docu Neurologic: Reports system reviewed and no additional complaints, except as documented Psychiatric: Psychiatric: Reports no additional psychiatric complaints Endocrine: Endocrine: Reports no additional endocrine complaints [facility] Past Medical History Medical History Pacemaker Acute exacerbation of CHF (congestive heart failure) Acute hypoxic respiratory failure Hypoxemia CHF (congestive heart failure) Dr Fowler Tobacco abuse Renal mass, right Rheumatoid arthritis History of prostate cancer Overactive bladder Recurrent inguinal hernia without obstruction or gangrene COPD exacerbation Screening for thyroid disorder COVID Persistent cough Encounter to establish care Orthostasis Erythropoietin deficiency anemia Rectus diastasis Prostate cancer Managed by Dr. Elizalde Peripheral artery disease With moderately decreased ABIs bilaterally December 2011 Monoclonal gammopathy Near syncope Sjogrens syndrome Spinal stenosis at L4-L5 level Bilateral carotid artery stenosis 50 to 69% stenosis on the right and greater than 70% stenosis on the left Lupus (systemic lupus erythematosus) Obstructive sleep apnea With nasal CPAP use Essential hypertension CKD (chronic kidney disease) Stage III managed [address] Dr. Quintin Downey Surgical History Surgical History History of prostate surgery H/O bilateral inguinal hernia repair pen reccurent [facility] and open L ing. hernia rep w/ mesh 03/12/24 S/P bilateral inguinal hernia repair History of permanent cardiac pacemaker placement 2021 Hx of left inguinal hernia repair 2015, repair of mesh failure History of right inguinal hernia repair 2016, previous repair of mesh failure History of total bilateral knee replacement With the right knee being replaced once in the left knee being replaced 3 times with chronic left knee pain Family History Family History Mother Cirrhosis Sibling Esophageal cancer Father Acute myocardial infarction Lung disease Heart disease Sibling Esophageal cancer Skin cancer Social History Social History Social History: Patient continues to smoke half a pack a day. Denies drug use. No alcohol use. Lives at home with his and daughter. 3 dogs. Patient smoked half a pack a day (stopped 1 month ago). Denies drug use. No alcohol use. Code status: Full code Healthcare power of collections attorney: Linda Frank () Smoking packs per day: 0.5 Smoking cigarettes per day: 10.0 Years smoked: 65 Smoking pack-years: 32.50 Smoking status: Current every day smoker Tobacco type: cigarettes Second hand tobacco smoke exposure: No Smoking end date: 03/07/25 Additional smoking assessment comments: SMOKING 0.5 PACK/DAY Alcohol intake: never Substance use: never Substance use type: does not use Lack of Transportation: No Lack of Food: Never True Current Housing: I Have Housing Concerned About Future Housing: No Difficulty Paying Gas/Electric Bills: No Difficulty Paying for Meds: No Currently Unemployed: No Education: High School Diploma/GED Difficulty w/ Childcare or Family Care: No Living arrangements: with family Additional living arrangements comments: and daughter Occupation/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 100 mcg-umeclid 1 inh inhalation .QD 12/22/23 10/12/25 History 62.5 mcg-vilant 25 mcg inhalat.powder (Trelegy Ellipta) metoprolol succinate 100 mg 100 mg PO QAM 01/04/24 10/12/25 History tablet,extended release 24 hr montelukast 10 mg tablet 10 mg PO HS 02/29/24 10/12/25 History tamsulosin 0.4 mg capsule 0.4 mg PO QAM #30 caps 05/26/24 10/12/25 Rx aspirin 81 mg tablet,delayed 81 mg PO QAM #30 tabs 06/12/24 10/12/25 Rx release albuterol sulfate 90 mcg/actuation 2 puff inhalation Q6H PRN 08/12/24 10/12/25 History aerosol inhaler Shortness Of Breath sodium bicarbonate 650 mg tablet See Rx Instructions .Route 11/12/24 10/12/25 Rx .COMPLEX #180 tabs fluticasone propionate 50 2 spray intranasal QAM #30 grams 03/11/25 10/12/25 Rx mcg/actuation nasal spray,suspension sennosides 8.6 mg-docusate sodium 2 tab-cap (2 x 8.6-50 mg) PO BID 05/26/25 10/12/25 Rx 50 mg tablet (Senokot-S) constipation #120 tabs sertraline 50 mg tablet 50 mg PO DAILY #90 tabs 06/03/25 10/12/25 Rx simvastatin 10 mg tablet See Rx Instructions .Route 06/10/25 10/12/25 Rx .COMPLEX #90 tabs finasteride 5 mg tablet (Proscar) 5 mg PO QAM #90 tabs 07/01/25 10/12/25 Rx bumetanide 1 mg tablet 1 mg PO Q12H #180 tabs 07/09/25 10/12/25 Rx ferrous sulfate 324 mg (65 mg 324 mg PO DAILY #30 tabs 07/19/25 10/12/25 Rx iron) tablet,delayed release ketoconazole 2 % shampoo 1 applic topical 3XW #120 mL 07/19/25 10/12/25 Rx nystatin 100,000 unit/gram topical 1 applic topical BID #15 grams 07/19/25 10/12/25 Rx ointment alprazolam 0.25 mg tablet 0.25 mg PO BID PRN anxiety #60 tabs 09/17/25 10/12/25 Rx amlodipine 10 mg tablet 10 mg PO .q12hr #90 tabs 09/17/25 10/12/25 Rx eszopiclone 1 mg tablet (Lunesta) 1 mg PO QHS #30 tabs 10/03/25 10/12/25 Rx Allergies Allergy/AdvReac Type Severity Reaction Status Date / Time clonazepam AdvReac Mild Nightmare Verified 10/14/25 05:31 Vital Signs Vital Signs - 24 hr 10/13/25 23:51 10/14/25 00:01 10/14/25 00:01 Temperature 97.8 F Pulse Rate 80 70 Respiratory Rate 20 Blood Pressure 122/65 Pulse Oximetry 88 L 95 Oxygen Delivery Room Air Nasal Cannula Oxygen Flow Rate 2 Fraction of Inspired Oxygen 10/14/25 00:06 10/14/25 00:15 10/14/25 00:30 Temperature Pulse Rate 78 70 75 Respiratory Rate 38 H 21 H 21 H Blood Pressure Pulse Oximetry 97 94 Oxygen Delivery Oxygen Flow Rate Fraction of Inspired Oxygen 10/14/25 00:31 10/14/25 00:45 10/14/25 01:00 Temperature Pulse Rate 70 71 70 Respiratory Rate 36 H 20 29 H Blood Pressure 131/54 L Pulse Oximetry 94 Oxygen Delivery Oxygen Flow Rate Fraction of Inspired Oxygen 10/14/25 01:02 10/14/25 01:15 10/14/25 01:25 Temperature Pulse Rate 91 76 96 Respiratory Rate 25 H 22 H Blood Pressure 104/91 H Pulse Oximetry 98 98 Oxygen Delivery BiPAP Oxygen Flow Rate Fraction of Inspired Oxygen 10/14/25 01:25 10/14/25 01:35 10/14/25 01:45 Temperature Pulse Rate Respiratory Rate Blood Pressure Pulse Oximetry 98 90 100 Oxygen Delivery BiPAP BiPAP BiPAP Oxygen Flow Rate Fraction of Inspired Oxygen 28 50 30 10/14/25 01:45 10/14/25 01:55 10/14/25 01:55 Temperature Pulse Rate 70 79 Respiratory Rate 26 H 30 H Blood Pressure 136/68 Pulse Oximetry 100 98 95 Oxygen Delivery Oxygen Flow Rate Fraction of Inspired Oxygen 10/14/25 02:00 10/14/25 02:01 10/14/25 02:15 Temperature Pulse Rate 70 78 70 Respiratory Rate 21 H 34 H 25 H Blood Pressure 135/63 Pulse Oximetry 96 95 97 Oxygen Delivery Oxygen Flow Rate Fraction of Inspired Oxygen 10/14/25 02:30 10/14/25 02:31 10/14/25 02:32 Temperature Pulse Rate 70 70 70 Respiratory Rate 20 18 19 Blood Pressure 137/59 L Pulse Oximetry 98 97 99 Oxygen Delivery Oxygen Flow Rate Fraction of Inspired Oxygen 10/14/25 02:45 10/14/25 02:55 10/14/25 03:00 Temperature Pulse Rate 70 70 Respiratory Rate 20 20 Blood Pressure Pulse Oximetry 96 Oxygen Delivery BiPAP Oxygen Flow Rate Fraction of Inspired Oxygen 10/14/25 03:01 10/14/25 03:15 10/14/25 03:30 Temperature Pulse Rate 70 83 73 Respiratory Rate 20 22 H 20 Blood Pressure 138/58 L Pulse Oximetry 95 Oxygen Delivery Oxygen Flow Rate Fraction of Inspired Oxygen 10/14/25 03:31 10/14/25 03:45 10/14/25 03:49 Temperature Pulse Rate 73 70 73 Respiratory Rate 20 20 19 Blood Pressure 147/64 H Pulse Oximetry 99 96 Oxygen Delivery BiPAP Oxygen Flow Rate Fraction of Inspired Oxygen 10/14/25 03:49 10/14/25 04:00 10/14/25 04:01 Temperature Pulse Rate 70 71 Respiratory Rate 17 20 Blood Pressure 155/64 H Pulse Oximetry 96 94 93 Oxygen Delivery BiPAP Oxygen Flow Rate Fraction of Inspired Oxygen 21 10/14/25 04:15 10/14/25 04:39 10/14/25 04:44 Temperature 97.6 F 97.6 F Pulse Rate 72 70 77 Respiratory Rate 20 24 H 20 Blood Pressure 158/63 H 158/63 H Pulse Oximetry 97 97 Oxygen Delivery Oxygen Flow Rate Fraction of Inspired Oxygen 10/14/25 05:15 10/14/25 06:00 10/14/25 08:00 Temperature 97.6 F 97.6 F Pulse Rate 71 90 70 Respiratory Rate 27 H 18 Blood Pressure 155/67 H 125/55 L Pulse Oximetry 98 97 Oxygen Delivery Oxygen Flow Rate Fraction of Inspired Oxygen Exam Narrative: Exam Narrative: Well developed well-nourished male in no acute distress Skin is warm and dry without rash Head normocephalic atraumatic Eyes normal sclerae and conjunctivae Mouth normal lips teeth and gums Neck no nodes no thyromegaly no carotid bruits Axillae no nodes Back no CVA tenderness Lungs symmetric and course to auscultation with decreased breath sounds and dullness to percussion at the right base Heart regular rate and rhythm without rub or gallop Abdomen bowel sounds positive soft nontender, no HSM, masses, or bruits. Extremities no cyanosis, clubbing, or edema Pulses 2+ equal in radial arteries Psychological not anxious or depressed Neuro alert and oriented x3 but very weak motor 5/5 cranial nerves 2-12 intact reflexes 2+ and equal in the biceps and patellar tendons cerebellar normal rapid alternating movements Results Lab Results 10/14/25 00:39 10/14/25 00:39 Lab results: Most recent lab results Calcium 9.3 mg/dL (8.4-10.2) 10/14/25 00:39
[2025-10-14] MEDS: FUROSEMIDE INJ 40 MG/4 ML VIAL IV PUSH ×2 (08:36→20:38)
[2025-10-14 09:27] LABS: INR 1.2; Prothrombin Time 14.8 Seconds (11.1-14.7)
[2025-10-14 09:32] LABS: Total Protein 6.5 g/dL (6.3-8.2)
--- NOTE | 2025-10-14 12:10 | PC.NURSE ---
PT to be NPO for thoracentesis, received order from Shefali to hold medications until pt is back. Order read back and verified.
[2025-10-14] MEDS: METOPROLOL SUCCINATE EXT REL 100 MG TABCR PO (15:02)
[2025-10-14] MEDS: TAMSULOSIN HCL 0.4 MG CAPSULE PO (15:02)
[2025-10-14] MEDS: SIMVASTATIN 10 MG TABLET BY MOUTH (15:02)
[2025-10-14] MEDS: FINASTERIDE 5 MG TABLET PO (15:02)
[2025-10-14] MEDS: SERTRALINE HCL 50 MG TABLET PO (15:03)
[2025-10-14] MEDS: HYDROXYCHLOROQUINE SULFATE 200 MG TABLET PO (15:03)
[2025-10-14] MEDS: ASPIRIN 81 MG ENTERIC TABLET PO (15:03)
[2025-10-14] MEDS: FERROUS SULFATE 325 MG TABLET BY MOUTH (15:03)
[2025-10-14] MEDS: SODIUM BICARBONATE TAB 650 MG TABLET BY MOUTH (15:03)
[2025-10-14 15:33] LABS: Appearance Pleural Fluid Bloody (Clear); Color Pleural Fluid Red (Colorless); Lymphocytes Pleural Fluid 85 %; Macrophages Pleural Fluid 6 %; Monocytes Pleural Fluid 5 %; Neutrophils Pleural Fluid 4 % (0-25); Nucleated Cell Pleural Fluid 585 /uL (0-1000)
[2025-10-14] MEDS: ENOXAPARIN 30 MG/0.3 ML SYRINGE SUB-Q (16:44)
[2025-10-14] MEDS: MONTELUKAST SODIUM 10 MG TABLET PO (20:38)
[2025-10-15] VITALS (17 sets, daily range): BP systolic 118–147; BP diastolic 52–58; PULSE 70–76; RESP 16–20; TEMP 36–36.7; O2SAT 92–96
[2025-10-15] MEDS: ALPRAZolam (*CRX) 0.25 MG TABLET PO ×2 (03:20→21:39)
[2025-10-15 04:31] LABS: Hematocrit 29.7 % (42.0-52.0); Hemoglobin 9.5 g/dL (14.0-18.0); Mean Corpuscular HGB Conc 32.0 g/dl (32-36); Mean Corpuscular Hemoglobin 33.2 pg (26-34); Mean Corpuscular Volume 103.8 fl (80-100); Platelet Count Result 210 k/mm3 (150-375); Red Blood Count 2.86 M/mm3 (4.6-6.20); White Blood Count 10.5 K/mm3 (4.5-10.0)
[2025-10-15 04:56] LABS: Albumin Level 3.4 g/dL (3.5-5.1); Anion Gap 11 mmol/L (4-12); Blood Urea Nitrogen 75 mg/dL (9-20); Calcium 9.5 mg/dL (8.4-10.2); Carbon Dioxide 18 mmol/L (22-30); Chloride 108 mmol/L (98-107); Estimated CRCL calculation 12 ml/min; Estimated Glomerular Filt Rate 15; Glucose 88 mg/dL (65-110); Potassium 4.2 mmol/L (3.4-5.0); Sodium 137 mmol/L (137-145)
--- NOTE | 2025-10-15 08:25 | P.PNNP_ITS ---
Progress Note: A&P Assessment and Plan (1) Chronic kidney disease: Code(s): N18.9 - Chronic kidney disease, unspecified Status: Acute Assessment and Plan: The patient has chronic kidney disease. His baseline creatinine runs between 3.5 and 4. Last week his creatinine was up to 4.2 in the face of diarrhea plus poor intake. His diarrhea is better and he is off his Bumex is creatinine is down but unfortunately he developed fluid overload. So now we will give him diuretics to try to get rid of the fluid. He is going to get a thoracentesis as well. He is back on diuretics. He did make a good amount of urine yesterday and feels better. His creatinine also brigitte a bit to 3.81. The patient and I had a long discussion. We are walking the fine line between having too much fluid and being short of breath and too little fluid and having renal failure. He understands that the line is somewhat fine right now and that as the inherent kidney function worsens the balance becomes more difficult to achieve. That is when we would start dialysis. However he does not have any uremic symptoms and we are getting the fluid off okay so I do not think we need to start this today. he is more short of breath at his baseline so will continue 1 more day of the IV diuretics and reassess tomorrow. (2) Pleural effusion: Code(s): J90 - Pleural effusion, not elsewhere classified Status: Acute Assessment and Plan: The patient Had a thoracentesis which helps his breathing as well. (3) Anemia: Qualifiers: Anemia type: unspecified type Qualified Code(s): D64.9 - Anemia, unspecified Code(s): D64.9 - Anemia, unspecified Status: Chronic Assessment and Plan: hemoglobin is 9.5. Will follow this along. He does not need Epogen at this point (4) MGUS (monoclonal gammopathy of unknown significance): Code(s): D47.2 - Monoclonal gammopathy Status: Acute Assessment and Plan: he sees Dr. Epstein for this. (5) Essential (primary) hypertension: Code(s): I10 - Essential (primary) hypertension Status: Chronic Assessment and Plan: Blood pressure is under good control (6) Obstructive sleep apnea: Code(s): G47.33 - Obstructive sleep apnea (adult) (pediatric) Status: Chronic Assessment and Plan: he uses a CPAP machine at home (7) COPD (chronic obstructive pulmonary disease): Qualifiers: COPD type: COPD with acute exacerbation Qualified Code(s): J44.1 - Chronic obstructive pulmonary disease with (acute) exacerbation Code(s): J44.9 - Chronic obstructive pulmonary disease, unspecified Status: Chronic Assessment and Plan: he will get supportive care (8) CHF (congestive heart failure): Qualifiers: Heart failure type: unspecified Heart failure chronicity: unspecified Qualified Code(s): I50.9 - Heart failure, unspecified Code(s): I50.9 - Heart failure, unspecified Status: Suspected Assessment and Plan: Continue fabien diurese as above Subjective Date/time seen: 10/15/25 08:25 Interval history: Patient feels a lot better today he does have some shortness of breath, more than his baseline, however better. Eating okay. Review of Systems Cardiovascular: Cardiovascular: Reports no additional cardiovascular complaints Respiratory: Respiratory: Reports no additional respiratory complaints Gastrointestinal: Gastrointestinal: Reports no additional gastrointestinal complaints Genitourinary: Genitourinary: Reports no additional male genitourinary complaints Exam Narrative: WDWN in NAD skin no rash head ncat lungs Decreased breath sounds at the right base but better than yesterday. cor reg no rub abd BS+ nontender and soft ext no edema. Objective Data Vital Signs Vital Signs: Vital Signs - 24 hr 10/14/25 08:34 10/14/25 09:00 10/14/25 10:00 Temperature Pulse Rate 73 Respiratory Rate Blood Pressure Pulse Oximetry 96 97 Oxygen Delivery Nasal Cannula Oxygen Flow Rate 2 10/14/25 12:00 10/14/25 12:00 10/14/25 12:09 Temperature 97.0 F L Pulse Rate 71 79 Respiratory Rate 20 Blood Pressure 152/53 H Pulse Oximetry 96 98 Oxygen Delivery Nasal Cannula Oxygen Flow Rate 2 10/14/25 14:04 10/14/25 14:59 10/14/25 15:02 Temperature Pulse Rate 70 73 75 Respiratory Rate 20 Blood Pressure 153/66 H Pulse Oximetry 100 Oxygen Delivery Oxygen Flow Rate 10/14/25 15:23 10/14/25 16:00 10/14/25 16:00 Temperature 97.3 F L Pulse Rate 78 Respiratory Rate 18 Blood Pressure 126/78 Pulse Oximetry 100 Oxygen Delivery Room Air Room Air Oxygen Flow Rate 10/14/25 16:00 10/14/25 18:00 10/14/25 20:00 Temperature 98.1 F Pulse Rate 80 70 70 Respiratory Rate 18 Blood Pressure 132/53 L Pulse Oximetry 97 Oxygen Delivery Oxygen Flow Rate 10/14/25 20:00 10/14/25 20:00 10/14/25 22:00 Temperature Pulse Rate 96 71 Respiratory Rate Blood Pressure Pulse Oximetry Oxygen Delivery Room Air Oxygen Flow Rate 10/14/25 22:59 10/14/25 23:00 10/14/25 23:01 Temperature 98.0 F Pulse Rate 75 74 Respiratory Rate 25 H 25 H Blood Pressure 156/56 H Pulse Oximetry 96 94 94 Oxygen Delivery BiPAP Room Air Oxygen Flow Rate 10/15/25 00:00 10/15/25 02:00 10/15/25 03:27 Temperature 98.0 F Pulse Rate 70 70 75 Respiratory Rate 20 Blood Pressure 118/57 L Pulse Oximetry 96 Oxygen Delivery Oxygen Flow Rate 10/15/25 03:29 10/15/25 04:00 10/15/25 05:51 Temperature Pulse Rate 70 71 Respiratory Rate Blood Pressure Pulse Oximetry 96 Oxygen Delivery Room Air Oxygen Flow Rate 10/15/25 07:21 Temperature 97.6 F Pulse Rate 71 Respiratory Rate 18 Blood Pressure 147/58 H Pulse Oximetry 94 Oxygen Delivery Oxygen Flow Rate Intake/Output Intake/Output: Intake & Output 10/12/25 10/13/25 10/14/25 10/15/25 23:59 23:59 23:59 23:59 Intake Total 390 200 Output Total 2075 350 Balance -1685 -150 Meds/Results Medications: Active Medications Generic Name Dose Route Start Last Admin Trade Name Freq PRN Reason Stop Dose Admin Albuterol 2 puff 10/14/25 09:11 Albuterol Sulfate (*Sp) Aerosol 1 Puff INHALATION Q6H PRN Shortness Of Breath Alprazolam 0.25 mg 10/14/25 09:11 10/15/25 03:20 Alprazolam (*Crx) 0.25 Mg Tablet PO 0.25 mg BID PRN Administration Anxiety Amlodipine Besylate 10 mg 10/14/25 09:15 10/14/25 20:38 Amlodipine Besylate 10 Mg Tablet PO 10 mg Q12HR NICOLLE Administration Aspirin 81 mg 10/14/25 09:00 10/14/25 15:03 Aspirin 81 Mg Enteric Tablet PO 81 mg QAM NICOLLE Administration Enoxaparin Sodium 30 mg 10/14/25 17:00 10/14/25 16:44 Enoxaparin 30 Mg/0.3 Ml Syringe SUB-Q 30 mg Q24H NICOLLE Administration Ferrous Sulfate 325 mg 10/14/25 09:00 10/14/25 15:03 Ferrous Sulfate 325 Mg Tablet BY MOUTH 325 mg DAILY NICOLLE Administration Finasteride 5 mg 10/14/25 09:00 10/14/25 15:02 Finasteride 5 Mg Tablet PO 5 mg QAM NICOLLE Administration Fluticasone Propionate 2 spray 10/14/25 09:00 10/14/25 15:04 Fluticasone Propionate 0.05% Na Spr 16 Gm Btl (*Bkc) NASAL Not Given QAM COUNTS INCLUDE 234 BEDS AT [facility] Furosemide 40 mg 10/14/25 09:00 10/14/25 20:38 Furosemide Inj 40 Mg/4 Ml Vial IV PUSH 40 mg Q12HR NICOLLE Administration Hydroxychloroquine Sulfate 200 mg 10/14/25 09:00 10/14/25 15:03 Hydroxychloroquine Sulfate 200 Mg Tablet PO 200 mg DAILY NICOLLE Administration Metoprolol Succinate 100 mg 10/14/25 09:00 10/14/25 15:02 Metoprolol Succinate Ext Rel 100 Mg Tabcr PO 100 mg QAM COUNTS INCLUDE 234 BEDS AT [facility] Administration Montelukast Sodium 10 mg 10/14/25 21:00 10/14/25 20:38 Montelukast Sodium 10 Mg Tablet PO 10 mg HS COUNTS INCLUDE 234 BEDS AT THE [facility] Administration Senna/Docusate Sodium 2 tab 10/14/25 09:11 Senna/Docusate Sodium Tablet PO BID PRN Constipation Sertraline HCl 50 mg 10/14/25 09:00 10/14/25 15:03 Sertraline Hcl 50 Mg Tablet PO 50 mg DAILY NICOLLE Administration Simvastatin 10 mg 10/14/25 09:15 10/14/25 15:02 Simvastatin 10 Mg Tablet BY MOUTH 10 mg DAILY NICOLLE Administration Sodium Bicarbonate 650 mg 10/14/25 09:15 10/14/25 16:45 Sodium Bicarbonate Tab 650 Mg Tablet BY MOUTH Not Given BID NICOLLE Tamsulosin HCl 0.4 mg 10/14/25 09:00 10/14/25 15:02 Tamsulosin Hcl 0.4 Mg Capsule PO 0.4 mg QAM NICOLLE Administration Radiology Results: ITS Impressions Chest CT 10/14/25 12:17 IMPRESSION: 1. Mild emphysema with small left and moderate to large right pleural effusions with secondary compressive atelectasis including collapse of the right middle and lower lobes. 2. Multiple chronic bilateral renal lesions many of low attenuation consistent with simple cysts and several in each kidney which remain indeterminate statistically most likely represent proteinaceous/hemorrhagic cysts although differential would include solid neoplasm. Could consider further evaluation with pre and postcontrast CT or MRI. Chest X-Ray 10/14/25 14:26 Impression: 1: Cardiomegaly with improved pulmonary edema. 2: Moderate right and small left pleural effusions. No pneumothorax identified post procedure. Thoracentesis Ultrasound 10/14/25 14:27 IMPRESSION: 1. Successful ultrasound-guided thoracentesis yielding 1100 mL of clear reddish breanna-colored fluid. Labs Labs: Laboratory Results - last 24 hr 10/14/25 10/14/25 10/14/25 03:20 09:04 09:38 WBC RBC Hgb Hct MCV MCH MCHC RDW Plt Count MPV PT 14.8 H INR 1.2 Sodium Potassium Chloride Carbon Dioxide Anion Gap BUN Creatinine Estim Creat Clear Calc Estimated GFR Glucose POC Capillary Glucose 115 H Calcium Phosphorus Total Protein 6.5 Albumin Pleural Fluid Source Pleural Color Pleural Appearance Pleural pH Pleural RBC Pleural Nuc Cells Pleural Neutrophils Pleural Lymphocytes Pleural Monocytes Pleural Macrophages 10/14/25 10/15/25 13:42 04:22 WBC 10.5 H RBC 2.86 L Hgb 9.5 L Hct 29.7 L MCV 103.8 H MCH 33.2 MCHC 32.0 RDW 12.7 Plt Count 210 MPV 9.9 PT INR Sodium 137 Potassium 4.2 Chloride 108 H Carbon Dioxide 18 L Anion Gap 11 BUN 75 H D Creatinine 3.81 H Estim Creat Clear Calc 12 Estimated GFR 15 L Glucose 88 POC Capillary Glucose Calcium 9.5 Phosphorus 5.2 H Total Protein Albumin 3.4 L Pleural Fluid Source Pleural fluid Pleural Color Red Pleural Appearance Bloody Pleural pH 7.435 Pleural RBC 35622 H Pleural Nuc Cells 585 Pleural Neutrophils 4 Pleural Lymphocytes 85 Pleural Monocytes 5 Pleural Macrophages 6
[2025-10-15] MEDS: METOPROLOL SUCCINATE EXT REL 100 MG TABCR PO (08:58)
[2025-10-15] MEDS: TAMSULOSIN HCL 0.4 MG CAPSULE PO (08:58)
[2025-10-15] MEDS: SERTRALINE HCL 50 MG TABLET PO (08:58)
[2025-10-15] MEDS: FERROUS SULFATE 325 MG TABLET BY MOUTH (08:58)
[2025-10-15] MEDS: SODIUM BICARBONATE TAB 650 MG TABLET BY MOUTH ×2 (08:58→17:05)
[2025-10-15] MEDS: HYDROXYCHLOROQUINE SULFATE 200 MG TABLET PO (08:58)
[2025-10-15] MEDS: ASPIRIN 81 MG ENTERIC TABLET PO (08:58)
[2025-10-15] MEDS: FINASTERIDE 5 MG TABLET PO (08:59)
[2025-10-15] MEDS: SIMVASTATIN 10 MG TABLET BY MOUTH (08:59)
[2025-10-15] MEDS: FLUTICASONE PROPIONATE 0.05% NA SPR 16 GM BTL (*BKC) 2 SPRAY NASAL (08:59)
[2025-10-15] MEDS: FUROSEMIDE INJ 40 MG/4 ML VIAL IV PUSH ×2 (08:59→20:42)
--- NOTE | 2025-10-15 12:13 | P.PNIM_ITS ---
Assessment and Plan Assessment and Plan (1) Essential (primary) hypertension: Code(s): I10 - Essential (primary) hypertension Status: Chronic (2) CHF (congestive heart failure): Qualifiers: Heart failure type: unspecified Heart failure chronicity: unspecified Qualified Code(s): I50.9 - Heart failure, unspecified Code(s): I50.9 - Heart failure, unspecified Status: Suspected Assessment and Plan: diuretics as below contiue epifanio meds (3) Pacemaker: Code(s): Z95.0 - Presence of cardiac pacemaker Status: Acute (4) Stage 4 chronic kidney disease: Code(s): N18.4 - Chronic kidney disease, stage 4 (severe) Status: Chronic Assessment and Plan: His baseline creatinine runs between 3-1/2 and 4. lasix 40mg IV q.12 hours. nephrology consulted (5) Anemia: Qualifiers: Anemia type: unspecified type Qualified Code(s): D64.9 - Anemia, unspecified Code(s): D64.9 - Anemia, unspecified Status: Chronic (6) COPD (chronic obstructive pulmonary disease): Qualifiers: COPD type: COPD with acute exacerbation Qualified Code(s): J44.1 - Chr onic obstructive pulmonary disease with (acute) exacerbation Code(s): J44.9 - Chronic obstructive pulmonary disease, unspecified Status: Chronic (7) Pleural effusion: Code(s): J90 - Pleural effusion, not elsewhere classified Status: Acute Assessment and Plan: diagnostic thoracentesis today- labs ordered monitor resp status (8) Obstructive sleep apnea: Code(s): G47.33 - Obstructive sleep apnea (adult) (pediatric) Status: Chronic Assessment and Plan: continue cpap Plan 84-year-old gentleman who has multiple medical problems including chronic kidney disease stage 4, 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 Chest x-ray showed a large right-sided pleural effusion Laboratory studies were obtained that did show a troponin leak at 0.151 BNP was greater than 30,000 hemoglobin was 9.9 this is around the patient's baseline creatinine was 3.6 with a BUN of 64 the patient's creatinine is normally over 4 COVID flu RSV are negative The patient was placed on BiPAP as he is having difficulty breathing oxygen saturations currently 98% on BiPAP with 2 L of oxygen 10/15 thoracentesis completed. 1100 ml removed. will order chest xray today to re assess. breathing is better but not back to his baseline. -pleural fluid analysis pending- so far pH 7.435, 4% neutrophils. 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 He sifuentes dthoracentesis done yestersay. Removed 1100 ml. breathing betetr today but still not 100% to his baseline. Nephrology following for diuresis. Review of Systems Review of Systems: All systems reviewed & are unremarkable except as noted in HPI and below Exam Const: General: comfortable Resp: Auscultation: diminished lung sounds Cardio: Rate: regular rate Rhythm: regular rhythm GI: Auscultation: normal bowel sounds Neuro: Speech: normal speech Motor exam (neuro): 5/5 motor strength present throughout Psych: Affect: normal affect Objective Data Vital Signs Vital Signs: Vital Signs - 24 hr 10/14/25 14:04 10/14/25 14:59 10/14/25 15:02 Temperature Pulse Rate 70 73 75 Respiratory Rate 20 Blood Pressure 153/66 H Pulse Oximetry 100 Oxygen Delivery 10/14/25 15:23 10/14/25 16:00 10/14/25 16:00 Temperature 97.3 F L Pulse Rate 78 Respiratory Rate 18 Blood Pressure 126/78 Pulse Oximetry 100 Oxygen Delivery Room Air Room Air 10/14/25 16:00 10/14/25 18:00 10/14/25 20:00 Temperature 98.1 F Pulse Rate 80 70 70 Respiratory Rate 18 Blood Pressure 132/53 L Pulse Oximetry 97 Oxygen Delivery 10/14/25 20:00 10/14/25 20:00 10/14/25 22:00 Temperature Pulse Rate 96 71 Respiratory Rate Blood Pressure Pulse Oximetry Oxygen Delivery Room Air 10/14/25 22:59 10/14/25 23:00 10/14/25 23:01 Temperature 98.0 F Pulse Rate 75 74 Respiratory Rate 25 H 25 H Blood Pressure 156/56 H Pulse Oximetry 96 94 94 Oxygen Delivery BiPAP Room Air 10/15/25 00:00 10/15/25 02:00 10/15/25 03:27 Temperature 98.0 F Pulse Rate 70 70 75 Respiratory Rate 20 Blood Pressure 118/57 L Pulse Oximetry 96 Oxygen Delivery 10/15/25 03:29 10/15/25 04:00 10/15/25 05:51 Temperature Pulse Rate 70 71 Respiratory Rate Blood Pressure Pulse Oximetry 96 Oxygen Delivery Room Air 10/15/25 07:21 10/15/25 08:00 10/15/25 08:58 Temperature 97.6 F Pulse Rate 71 70 70 Respiratory Rate 18 Blood Pressure 147/58 H Pulse Oximetry 94 Oxygen Delivery 10/15/25 09:00 10/15/25 09:58 10/15/25 11:22 Temperature Pulse Rate 73 Respiratory Rate Blood Pressure Pulse Oximetry 96 Oxygen Delivery Room Air Room Air 10/15/25 11:33 Temperature 96.8 F L Pulse Rate 71 Respiratory Rate 18 Blood Pressure 130/57 L Pulse Oximetry 96 Oxygen Delivery Intake/Output Intake/Output: Intake & Output 10/12/25 10/13/25 10/14/25 10/15/25 23:59 23:59 23:59 23:59 Intake Total 390 440 Output Total 9045 350 Balance -1685 90 Meds/Results Medications: Active Medications Generic Name Dose Route Start Last Admin Trade Name Freq PRN Reason Stop Dose Admin Albuterol 2 puff 10/14/25 09:11 Albuterol Sulfate (*Sp) Aerosol 1 Puff INHALATION Q6H PRN Shortness Of Breath Alprazolam 0.25 mg 10/14/25 09:11 10/15/25 03:20 Alprazolam (*Crx) 0.25 Mg Tablet PO 0.25 mg BID PRN Administration Anxiety Amlodipine Besylate 10 mg 10/14/25 09:15 10/15/25 08:58 Amlodipine Besylate 10 Mg Tablet PO 10 mg Q12HR NICOLLE Administration Aspirin 81 mg 10/14/25 09:00 10/15/25 08:58 Aspirin 81 Mg Enteric Tablet PO 81 mg QAM NICOLLE Administration Enoxaparin Sodium 30 mg 10/14/25 17:00 10/14/25 16:44 Enoxaparin 30 Mg/0.3 Ml Syringe SUB-Q 30 mg Q24H NICOLLE Administration Ferrous Sulfate 325 mg 10/14/25 09:00 10/15/25 08:58 Ferrous Sulfate 325 Mg Tablet BY MOUTH 325 mg DAILY NICOLLE Administration Finasteride 5 mg 10/14/25 09:00 10/15/25 08:59 Finasteride 5 Mg Tablet PO 5 mg QAM NICOLLE Administration Fluticasone Propionate 2 spray 10/14/25 09:00 10/15/25 08:59 Fluticasone Propionate 0.05% Na Spr 16 Gm Btl (*Bkc) NASAL 2 spray QAM NICOLLE Administration Furosemide 40 mg 10/14/25 09:00 10/15/25 08:59 Furosemide Inj 40 Mg/4 Ml Vial IV PUSH 40 mg Q12HR NICOLLE Administration Hydroxychloroquine Sulfate 200 mg 10/14/25 09:00 10/15/25 08:58 Hydroxychloroquine Sulfate 200 Mg Tablet PO 200 mg DAILY NICOLLE Administration Metoprolol Succinate 100 mg 10/14/25 09:00 10/15/25 08:58 Metoprolol Succinate Ext Rel 100 Mg Tabcr PO 100 mg QAM NICOLLE Administration Montelukast Sodium 10 mg 10/14/25 21:00 10/14/25 20:38 Montelukast Sodium 10 Mg Tablet PO 10 mg HS NICOLLE Administration Senna/Docusate Sodium 2 tab 10/14/25 09:11 Senna/Docusate Sodium Tablet PO BID PRN Constipation Sertraline HCl 50 mg 10/14/25 09:00 10/15/25 08:58 Sertraline Hcl 50 Mg Tablet PO 50 mg DAILY NICOLLE Administration Simvastatin 10 mg 10/14/25 09:15 10/15/25 08:59 Simvastatin 10 Mg Tablet BY MOUTH 10 mg DAILY NICOLLE Administration Sodium Bicarbonate 650 mg 10/14/25 09:15 10/15/25 08:58 Sodium Bicarbonate Tab 650 Mg Tablet BY MOUTH 650 mg BID NICOLLE Administration Tamsulosin HCl 0.4 mg 10/14/25 09:00 10/15/25 08:58 Tamsulosin Hcl 0.4 Mg Capsule PO 0.4 mg QAM NICOLLE Administration Radiology Results: ITS Impressions Chest CT 10/14/25 12:17 IMPRESSION: 1. Mild emphysema with small left and moderate to large right pleural effusions with secondary compressive atelectasis including collapse of the right middle and lower lobes. 2. Multiple chronic bilateral renal lesions many of low attenuation consistent with simple cysts and several in each kidney which remain indeterminate statistically most likely represent proteinaceous/hemorrhagic cysts although differential would include solid neoplasm. Could consider further evaluation with pre and postcontrast CT or MRI. Chest X-Ray 10/14/25 14:26 Impression: 1: Cardiomegaly with improved pulmonary edema. 2: Moderate right and small left pleural effusions. No pneumothorax identified post procedure. Thoracentesis Ultrasound 10/14/25 14:27 IMPRESSION: 1. Successful ultrasound-guided thoracentesis yielding 1100 mL of clear reddish breanna-colored fluid. Labs Labs: Laboratory Results - last 24 hr 10/14/25 10/15/25 13:42 04:22 WBC 10.5 H RBC 2.86 L Hgb 9.5 L Hct 29.7 L MCV 103.8 H MCH 33.2 MCHC 32.0 RDW 12.7 Plt Count 210 MPV 9.9 Sodium 137 Potassium 4.2 Chloride 108 H Carbon Dioxide 18 L Anion Gap 11 BUN 75 H D Creatinine 3.81 H Estim Creat Clear Calc 12 Estimated GFR 15 L Glucose 88 Calcium 9.5 Phosphorus 5.2 H Albumin 3.4 L Pleural Fluid Source Pleural fluid Pleural Color Red Pleural Appearance Bloody Pleural pH 7.435 Pleural RBC 75709 H Pleural Nuc Cells 585 Pleural Neutrophils 4 Pleural Lymphocytes 85 Pleural Monocytes 5 Pleural Macrophages 6 Quality VTE Prophylaxis VTE prophylaxis: pharmacologic ordered
[2025-10-15 14:08] LABS: Glucose, Body Fluid 101 mg/dL (.)
[2025-10-15] MEDS: ENOXAPARIN 30 MG/0.3 ML SYRINGE SUB-Q (17:05)
[2025-10-15] MEDS: MONTELUKAST SODIUM 10 MG TABLET PO (20:42)
--- NOTE | 2025-10-15 23:49 | PC.NURSE ---
This patient, Abdirizak Frank, was transferred to [facility] on 10/15/25 at 2349. Personal belongings sent with patient. Report given to Concepcion BRADFORD. Appropriate documentation sent with patient.
[2025-10-16] VITALS (9 sets, daily range): BP systolic 121–155; BP diastolic 55–67; PULSE 55–90; RESP 16–20; TEMP 36.1–36.9; O2SAT 92–99; BMI 22.9
--- NOTE | 2025-10-16 | ECHO_ITS ---
Patient Info Name: Abdirizak Frank Age: 84 years : 1940 Gender: Male Ht: 66 in Wt: 142 lbs BSA: 1.74 m2 HR: 90 bpm BP: 132 / 55 mmHg Heart Rhythm: Paced Technical Quality: Good Exam Date: 10/16/2025 12:05 PM Patient Status: I Admit Date: 10/14/2025 Exam Type: CA echo dop color flow w con Complete two-dimensional, color flow and Doppler transthoracic echocardiogram is performed with contrast to opacify the left ventricle and to improve the deliniation of the left ventricle endocardial borders. Staff Referring Physician: Aydee Fragoso Appointment Specialist: Catarina Elizabeth Attending Provider: Rosalba Westbrook DO Contrast/Agitated Saline Contrast/Ag. Saline: Definity Amount: 3.00 ml Administered By: Catarina Elizabeth Existing IV Access: Yes IV Access Condition: patent with no signs of infiltration Summary 1. Left ventricular enlargement with systolic dysfunction global ejection fraction estimated to be 30%. 2. Akinesia of the anterior wall and anteroseptal segments. 3. Dilated left atrium. 4. Mild aortic regurgitation. 5. Moderate mitral regurgitation. 6. Pacemaker lead identified. Left Ventricle Left ventricular chamber dimension is moderately enlarged. Left ventricular systolic function is moderately reduced, estimated at 30-35. Left ventricular septal wall motion is abnormal with septal motion related to pacing. The left ventricular diastolic function is indeterminate. Right Ventricle Right ventricular chamber dimension is normal. Linear artifact in right ventricle suggestive of catheter(s), pacemaker lead(s), or ICD lead(s). Left Atria Left atrial chamber dimension is moderately enlarged. Right Atria Right atrial chamber dimension is normal. Linear artifact in the right atrium suggestive of catheter(s), pacemaker lead(s), or ICD lead(s). Aortic Valve The aortic valve is trileaflet. There is mild aortic valve sclerosis. Pulmonic Valve The pulmonic valve is not well visualized. Mitral Valve The mitral valve has normal leaflets. There is moderate mitral valve regurgitation. Tricuspid Valve The tricuspid valve leaflets are normal. Pericardium/Pleural The pericardium appears normal. Aorta The aortic root size at the sinus of Valsalva is normal. Left Ventricular Outflow Tract Name Value Normal LVOT 2D LVOT Diameter 2.0 cm LVOT Doppler LVOT Peak Velocity 88 cm/s LVOT Peak Gradient 3 mmHg LVOT Mean Gradient 1 mmHg LVOT VTI 14 cm LVOT VTI/AV VTI Ratio 0.5 LVOT Stroke Volume 44 ml LVOT CO 3.3 l/min LVOT CI 1.9 l/min/m2 Pulmonic Valve Name Value Normal RVOT Doppler RVOT Peak Velocity 102 cm/s RVOT Peak Gradient 4 mmHg PV Doppler PV Peak Velocity 130 cm/s PV Peak Gradient 7 mmHg Mitral Valve Name Value Normal MV Regurgitation Doppler MR Peak Gradient 93 mmHg MV Diastolic Function MV E Peak Velocity 138 cm/s MV A Peak Velocity 2 cm/s MV E/A 75.3 MV Decel Time (PW) 128 ms MV Annular TDI MV E/e' (Septal) 22.6 MV E/e' (Lateral) 16.6 MV E/e' (Average) 19.6 Tricuspid Valve Name Value Normal TV Regurgitation Doppler TR Peak Velocity 281 cm/s TR Peak Gradient 32 mmHg Estimated PAP/RSVP RA Pressure 10 mmHg <=5 PA Systolic Pressure 42 mmHg <36 RV Systolic Pressure 42 mmHg <36 TV Annular TDI TV Lateral Gina s' Velocity 7.6 cm/s >=9.5 Aortic Valve Name Value Normal AV Doppler AV Peak Velocity 169 cm/s AV Peak Gradient 11 mmHg AV Mean Gradient 4 mmHg AV VTI 27 cm AV Area (Cont Eq VTI) 1.7 cm2 >=3.0 AV Area (Cont Eq Delfino) 1.7 cm2 AV DI (Delfino) 0.52 AV Regurgitation 2D LVOT Area 3.2 cm2 Ventricles Name Value Normal LV Dimensions 2D/MM IVS Diastolic Thickness (2D) 1.4 cm 0.6-1.0 LVID Diastole (2D) 5.1 cm 4.2-5.8 LVIW Diastolic Thickness (2D) 1.3 cm 0.6-1.0 LVID Systole (2D) 4.2 cm 2.5-4.0 LVOT Diameter 2.0 cm LV Mass (2D Cubed) 282.65 g 88.00-224.00 LV Mass Index (2D Cubed) 163 g/m2 49-115 Relative Wall Thickness (2D) 0.53 <=0.42 LV Fractional Shortening/Ejection Fraction 2D/MM LV Fractional Shortening (2D) 17 % 25-43 LV EF (2D Teichholz) 35 % LV Diastolic Volume (4C MOD) 162 ml LV EF (4C MOD) 47 % LV Diastolic Volume (2C MOD) 174 ml LV EF (2C MOD) 36 % LV Diastolic Volume (BP MOD) 171 ml 62-150 LV Diastolic Volume Index (BP MOD) 99 ml/m2 34-74 LV Systolic Volume (BP MOD) 99 ml 21-61 LV Systolic Volume Index (BP MOD) 57 ml/m2 11-31 LV EF (BP MOD) 42 % 52-72 LV Diastolic Length (4C) 8.4 cm LV Systolic Length (4C) 7.5 cm LV Stroke Volume (4C MOD) 76 ml Atria Name Value Normal LA Dimensions LA Volume (4C A-L) 120 ml LA Volume (BP A-L) 129 ml RA Dimensions RA Area (4C) 19.4 cm2 <=18.0 Report Signatures
[2025-10-16 06:13] LABS: Hematocrit 28.3 % (42.0-52.0); Hemoglobin 9.2 g/dL (14.0-18.0); Mean Corpuscular HGB Conc 32.5 g/dl (32-36); Mean Corpuscular Hemoglobin 32.9 pg (26-34); Mean Corpuscular Volume 101.1 fl (80-100); Platelet Count Result 196 k/mm3 (150-375); Red Blood Count 2.80 M/mm3 (4.6-6.20); White Blood Count 7.8 K/mm3 (4.5-10.0)
[2025-10-16 06:47] LABS: Albumin Level 3.4 g/dL (3.5-5.1); Anion Gap 11 mmol/L (4-12); Blood Urea Nitrogen 88 mg/dL (9-20); Calcium 9.3 mg/dL (8.4-10.2); Carbon Dioxide 20 mmol/L (22-30); Chloride 105 mmol/L (98-107); Estimated CRCL calculation 12 ml/min; Estimated Glomerular Filt Rate 15; Glucose 82 mg/dL (65-110); Potassium 3.9 mmol/L (3.4-5.0); Sodium 136 mmol/L (137-145)
[2025-10-16] MEDS: FERROUS SULFATE 325 MG TABLET BY MOUTH (08:22)
[2025-10-16] MEDS: FUROSEMIDE INJ 40 MG/4 ML VIAL IV PUSH (08:22)
[2025-10-16] MEDS: METOPROLOL SUCCINATE EXT REL 100 MG TABCR PO (08:23)
[2025-10-16] MEDS: TAMSULOSIN HCL 0.4 MG CAPSULE PO (08:23)
[2025-10-16] MEDS: HYDROXYCHLOROQUINE SULFATE 200 MG TABLET PO (08:23)
[2025-10-16] MEDS: FINASTERIDE 5 MG TABLET PO (08:23)
[2025-10-16] MEDS: ASPIRIN 81 MG ENTERIC TABLET PO (08:23)
[2025-10-16] MEDS: SERTRALINE HCL 50 MG TABLET PO (08:25)
[2025-10-16] MEDS: FLUTICASONE PROPIONATE 0.05% NA SPR 16 GM BTL (*BKC) 2 SPRAY NASAL (08:30)
--- NOTE | 2025-10-16 09:46 | P.PNIM_ITS ---
Assessment and Plan Assessment and Plan (1) Pleural effusion: Code(s): J90 - Pleural effusion, not elsewhere classified Status: Acute Assessment and Plan: - Current medications: currently on lasix 40 mg IV, bumex 1 mg q12 placed on hold. - Oxygen supplementation: 1L NC, baseline room air. Wean as tolerated to maintain spo2 > 90% - Chest CT 10/14: Mild emphysema with small left and moderate to large right pleural effusions with secondary compressive atelectasis including collapse of the right middle and lower lobes. - Echo 03/08/25: LVEF 30-35% with moderate pulmonary hypertension Will repeat echo to assess heart function and ensure no worsening EF - s/p diagnostic thoracentesis 10/14. Repeat CXR on 10/15 showing progression of bilateral airspace disease, compatible with pneumonia (2) CHF (congestive heart failure): Qualifiers: Heart failure chronicity: unspecified Heart failure type: unspecified Qualified Code(s): I50.9 - Heart failure, unspecified Code(s): I50.9 - Heart failure, unspecified Status: Suspected Assessment and Plan: - Symptoms: SOB - Current medications: currently on lasix 40 mg IV, bumex 1 mg q12 placed on hold. Metoprolol 100 mg daily. Given his severe renal failure, cannot give spironolactone and Entresto. 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 - Echo 03/08/25: LVEF 30-35% with moderate pulmonary hypertension Will repeat echo to assess heart function and ensure no worsening EF - Monitor vital signs, I&Os, BUN/creatinine, daily weights, neuro status and patient is a fall risk - Monitor serum electrolytes, Keep serum Potassium>4 and serum Magnesium>2 and CBC - s/p diagnostic thoracentesis 10/14. Repeat CXR on 10/15 showing progression of bilateral airspace disease, compatible with pneumonia. Unlikely pneumonia as patient shortness of breath improving and he denies associated cough. WBC WNL. Likely atelectasis from effusion, given IS. (3) Stage 4 chronic kidney disease: Code(s): N18.4 - Chronic kidney disease, stage 4 (severe) Status: Chronic Assessment and Plan: His baseline creatinine runs between 3.5 and 4. BUN/Cr 88/3.98 nephrology consulted for diuresis recommendations lasix 40 mg IV q12 hr (4) Anemia: Qualifiers: Anemia type: unspecified type Qualified Code(s): D64.9 - Anemia, unspecified Code(s): D64.9 - Anemia, unspecified Status: Chronic Assessment and Plan: H/H remains stable No signs of active bleeding Nephrology following, does not need Epogen at this point (5) COPD (chronic obstructive pulmonary disease): Qualifiers: COPD type: COPD with acute exacerbation Qualified Code(s): J44.1 - Chronic obstructive pulmonary disease with (acute) exacerbation Code(s): J44.9 - Chronic obstructive pulmonary disease, unspecified Status: Chronic Assessment and Plan: Chronic, does not appear in acute exacerbation. (6) Obstructive sleep apnea: Code(s): G47.33 - Obstructive sleep apnea (adult) (pediatric) Status: Chronic Assessment and Plan: continue cpap (7) Essential (primary) hypertension: Code(s): I10 - Essential (primary) hypertension Status: Chronic Assessment and Plan: Chronic, continue home medications - amlodipine 10 mg BID - bumex 1 mg BID, currently on hold. Receiving lasix 40 mg IV for pleural effusion - metoprolol 100 mg daily - Blood pressures reviewed and remained stable, continue to monitor. Medical Record Review I have reviewed the following patient records and this information was taken into consideration when formulating the assessment and plan.: previous labs Time Spent With Patient Time with patient: 25 - 35 minutes Subjective Date/time seen: 10/16/25 09:46 Interval history: 84-year-old gentleman who has multiple medical problems including chronic kidney disease stage 4, 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 Patient is pleasant sitting up comfortably in his chair with family at bedside. He states that his shortness of breath continues to improve since having the thoracentesis. He denies any associated cough. He remains on 1 L nasal cannula which will be attempted to wean today. He has no other complaints denying chest pain, palpitations, nausea/vomiting, and abdominal pain. Patient do note that patient has been having a decreased appetite and weight loss, nutrition consulted. Review of Systems Review of Systems: All systems reviewed & are unremarkable except as noted in HPI and below Exam Narrative: AF HR 70 RR 16 SpO2 99 1L NC (baseline RA) BP 125/59 General: male in no acute respiratory distress who is nontoxic appearing, s itting up in chair with family at bedside HEENT: Normocephalic. Atraumatic. Extraocular movement intact. Sclera clear and anicteric. No facial asymmetry. Chest: Lungs are coarse and diminished to auscultation bilaterally to the bases. No wheezes. CV: Heart was regular rate and rhythm. Abd: Abdomen was soft. Nontender. Nondistended. Positive bowel sounds. Ext: No clubbing, cyanosis, or edema. DP pulses bilaterally. Neuro: Patient is alert. Speech is clear. Objective Data Vital Signs Vital Signs: Vital Signs - 24 hr 10/15/25 09:58 10/15/25 11:22 10/15/25 11:33 Temperature 96.8 F L Pulse Rate 73 71 Respiratory Rate 18 Blood Pressure 130/57 L Pulse Oximetry 96 Oxygen Delivery Room Air Oxygen Flow Rate Fraction of Inspired Oxygen 10/15/25 12:00 10/15/25 12:00 10/15/25 14:00 Temperature Pulse Rate 76 70 Respiratory Rate Blood Pressure Pulse Oximetry Oxygen Delivery Room Air Oxygen Flow Rate Fraction of Inspired Oxygen 10/15/25 15:13 10/15/25 20:00 10/15/25 20:00 Temperature 97.3 F L 97.5 F L Pulse Rate 71 70 Respiratory Rate 18 16 Blood Pressure 125/52 L 125/55 L Pulse Oximetry 95 96 92 Oxygen Delivery Nasal Cannula Oxygen Flow Rate 1 Fraction of Inspired Oxygen 10/15/25 21:17 10/16/25 00:00 10/16/25 04:00 Temperature 97.9 F 98.2 F Pulse Rate 71 55 L Respiratory Rate 16 16 Blood Pressure 152/58 H 155/56 H Pulse Oximetry 92 93 93 Oxygen Delivery Nasal Cannula Oxygen Flow Rate 1 Fraction of Inspired Oxygen 24 10/16/25 08:00 10/16/25 08:23 Temperature 96.9 F L Pulse Rate 77 90 Respiratory Rate 16 Blood Pressure 132/55 L Pulse Oximetry 96 Oxygen Delivery Oxygen Flow Rate Fraction of Inspired Oxygen Intake/Output Intake/Output: Intake & Output 10/13/25 10/14/25 10/15/25 10/16/25 23:59 23:59 23:59 23:59 Intake Total 390 1900 320 Output Total 2072 1000 800 Balance -1685 900 -480 Meds/Results Medications: Active Medications Generic Name Dose Route Start Last Admin Trade Name Freq PRN Reason Stop Dose Admin Albuterol 2 puff 10/14/25 09:11 Albuterol Sulfate (*Sp) Aerosol 1 Puff INHALATION Q6H PRN Shortness Of Breath Alprazolam 0.25 mg 10/14/25 09:11 10/15/25 21:39 Alprazolam (*Crx) 0.25 Mg Tablet PO 0.25 mg BID PRN Administration Anxiety Amlodipine Besylate 10 mg 10/14/25 09:15 10/16/25 08:23 Amlodipine Besylate 10 Mg Tablet PO 10 mg Q12HR NICOLLE Administration Aspirin 81 mg 10/14/25 09:00 10/16/25 08:23 Aspirin 81 Mg Enteric Tablet PO 81 mg QAM NICOLLE Administration Enoxaparin Sodium 30 mg 10/14/25 17:00 10/15/25 17:05 Enoxaparin 30 Mg/0.3 Ml Syringe SUB-Q 30 mg Q24H NICOLLE Administration Ferrous Sulfate 325 mg 10/14/25 09:00 10/16/25 08:22 Ferrous Sulfate 325 Mg Tablet BY MOUTH 325 mg DAILY NICOLLE Administration Finasteride 5 mg 10/14/25 09:00 10/16/25 08:23 Finasteride 5 Mg Tablet PO 5 mg QAM NICOLLE Administration Fluticasone Propionate 2 spray 10/14/25 09:00 10/16/25 08:30 Fluticasone Propionate 0.05% Na Spr 16 Gm Btl (*Bkc) NASAL 2 spray QAM NICOLLE Administration Furosemide 40 mg 10/14/25 09:00 10/16/25 08:22 Furosemide Inj 40 Mg/4 Ml Vial IV PUSH 40 mg Q12HR NICOLLE Administration Hydroxychloroquine Sulfate 200 mg 10/14/25 09:00 10/16/25 08:23 Hydroxychloroquine Sulfate 200 Mg Tablet PO 200 mg DAILY NICOLLE Administration Metoprolol Succinate 100 mg 10/14/25 09:00 10/16/25 08:23 Metoprolol Succinate Ext Rel 100 Mg Tabcr PO 100 mg QAM NICOLLE Administration Montelukast Sodium 10 mg 10/14/25 21:00 10/15/25 20:42 Montelukast Sodium 10 Mg Tablet PO 10 mg HS NICOLLE Administration Senna/Docusate Sodium 2 tab 10/14/25 09:11 Senna/Docusate Sodium Tablet PO BID PRN Constipation Sertraline HCl 50 mg 10/14/25 09:00 10/16/25 08:25 Sertraline Hcl 50 Mg Tablet PO 50 mg DAILY NICOLLE Administration Simvastatin 10 mg 10/14/25 09:15 10/15/25 08:59 Simvastatin 10 Mg Tablet BY MOUTH 10 mg DAILY NICOLLE Administration Sodium Bicarbonate 650 mg 10/14/25 09:15 10/15/25 17:05 Sodium Bicarbonate Tab 650 Mg Tablet BY MOUTH 650 mg BID NICOLLE Administration Tamsulosin HCl 0.4 mg 10/14/25 09:00 10/16/25 08:23 Tamsulosin Hcl 0.4 Mg Capsule PO 0.4 mg QAM NICOLLE Administration Radiology Results: ITS Impressions Chest CT 10/14/25 12:17 IMPRESSION: 1. Mild emphysema with small left and moderate to large right pleural effusions with secondary compressive atelectasis including collapse of the right middle and lower lobes. 2. Multiple chronic bilateral renal lesions many of low attenuation consistent with simple cysts and several in each kidney which remain indeterminate statistically most likely represent proteinaceous/hemorrhagic cysts although differential would include solid neoplasm. Could consider further evaluation with pre and postcontrast CT or MRI. Thoracentesis Ultrasound 10/14/25 14:27 IMPRESSION: 1. Successful ultrasound-guided thoracentesis yielding 1100 mL of clear reddish breanna-colored fluid. Chest X-Ray 10/15/25 13:58 Impression: 1: Progression of bilateral airspace disease, compatible with pneumonia. Labs Labs: Laboratory Results - last 24 hr 10/14/25 10/16/25 13:42 05:56 WBC 7.8 RBC 2.80 L Hgb 9.2 L Hct 28.3 L MCV 101.1 H MCH 32.9 MCHC 32.5 RDW 12.3 Plt Count 196 MPV 9.8 Sodium 136 L Potassium 3.9 Chloride 105 Carbon Dioxide 20 L Anion Gap 11 BUN 88 H D Creatinine 3.98 H Estim Creat Clear Calc 12 Estimated GFR 15 L Glucose 82 Calcium 9.3 Phosphorus 4.9 H Albumin 3.4 L Fluid Glucose 101 Quality VTE Prophylaxis VTE prophylaxis: pharmacologic ordered
[2025-10-16] MEDS: SIMVASTATIN 10 MG TABLET BY MOUTH (10:11)
[2025-10-16] MEDS: SODIUM BICARBONATE TAB 650 MG TABLET BY MOUTH ×2 (10:11→17:30)
[2025-10-16] MEDS: PERFLUTREN LIPID MICROSPHERES 1.5 ML VIAL DILUTED TO 10 ML TOTAL VOLUME IV PUSH (12:50)
--- NOTE | 2025-10-16 13:02 | IVDEFINITY ---
Prior to administration of IV Definity the patient was educated on the risks and benefits of the imaging enhancing agent including potential adverse side effects. The patient verbalized understanding. Allergies were verified. No exclusion criteria were identified and at least one of the following inclusion criteria were met: 1) physician request, 2) patient technically difficult to image (per the [place] [employer] of Echocardiography guidelines of two or more segments not discernable within the apical view), or 3) questionable left ventricular function. ?
--- NOTE | 2025-10-16 15:15 | P.PNNP_ITS ---
Progress Note: A&P Assessment and Plan (1) Stage 4 chronic kidney disease: Code(s): N18.4 - Chronic kidney disease, stage 4 (severe) Status: Chronic Assessment and Plan: * baseline creatinine running around 3.5 - 4.0mg/dl * however, has been as high as 4.6mg/dl (late January 2025) * this causes him to bounce between CKD stage 4 and stage 5 * due to biopsy proven hypertensive nephrosclerosis with recent contributions from his heart failure and associated diuretic use * s/p AV fistula placement by Dr. 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 Jordan) * volume/fluid status appears better at this time * consider transitioned back to oral bumex tomorrow * follow trend of repeat labs and UOP (2) Acute hypoxic respiratory failure: Code(s): J96.01 - Acute respiratory failure with hypoxia Status: Acute Assessment and Plan: * resolving * multifactorial: * CHF exacerbation * right pleural effusion * volume/fluid overload * valvular heart disease * known history of COPD * underlying ARTURO * relative anemia * other(?) * ongoing interventions noted: * IV diuresis * thoracentesis * PRN inhalers * CPAP use * wean supplemental oxygen * follow respiratory status and clinical exam (3) Pleural effusion, right: Code(s): J90 - Pleural effusion, not elsewhere classified Status: Acute Assessment and Plan: * as noted by admission imaging * s/p right thoracentesis on 10/14 * yielded 1100cc pleural fluid * pleural fluid analysis noted * clinical improvement in breathing following procedure (4) CHF (congestive heart failure): Qualifiers: Heart failure type: unspecified Heart failure chronicity: unspecified Qualified Code(s): I50.9 - Heart failure, unspecified Code(s): I50.9 - Heart failure, unspecified Status: Chronic Assessment and Plan: * clinical improvement noted * admission CXR with right pleural effusion and pulmonary edema * Echo (on 03/08) noted: * left ventricular systolic function is severely globally reduced, estimated at 30-35% * left ventricular diastolic function is abnormal * right ventricular systolic function is reduced * moderate aortic valve sclerosis * mild aortic valve regurgitation * mitral valve has a moderately calcified annulus * moderate to severe mitral valve regurgitation * moderate tricuspid valve regurgitation * moderate pulmonary hypertension, estimated pulmonary arterial systolic pressure is 51 mmHg * repeat Echo pending * monitor I&Os and daily weights * continue diuresis (5) Metabolic acidosis: Code(s): E87.20 - Acidosis, unspecified Status: Chronic Assessment and Plan: * due to advanced CKD * on oral sodium bicarbonate to compensate * follow trend of CO2 levels (6) Anemia: Qualifiers: Anemia type: unspecified type Qualified Code(s): D64.9 - Anemia, unspecified Code(s): D64.9 - Anemia, unspecified Status: Chronic Assessment and Plan: * due to CKD and known history of MGUS * no need for OCTAVIANO as of yet * follow trend of H/H (7) Essential (primary) hypertension: Code(s): I10 - Essential (primary) hypertension Status: Chronic Assessment and Plan: * reasonable control * follow trend of hemodynamics (8) MGUS (monoclonal gammopathy of unknown significance): Code(s): D47.2 - Monoclonal gammopathy Status: Chronic Assessment and Plan: * follows with Dr. Epstein (Hem/Onc) Will continue to follow. L Subjective Date/time seen: 10/16/25 15:15 Interval history: Follow-up for chronic kidney disease. Chart reviewed -- assuming care from Dr. Downey; shortness of breath/respiratory status has significantly improved with current interventions/therapy to date (thoracentesis + IV diuretics); weaned to room air at the time of my visit; no other issues/events overnight or earlier this morning; feels reasonably well. Exam 2 Narrative: General: elderly but WD/WN male in NAD Heart: normal S1 and S2; no rub Lungs: clear anteriorly, decreased at bases Abdomen: soft, nontender, nondistended, positive bowel sounds Extremities: no cyanosis or clubbing; trace edema Skin: warm and dry Objective Data Vital Signs Vital Signs: Vital Signs Temp Pulse Resp BP Pulse Ox O2 Del Method O2 Flow Rate 10/16/25 12:00 96.9 F L 70 16 125/59 L 99 10/16/25 08:23 90 10/16/25 08:20 96 Nasal Cannula 1 10/16/25 08:00 96.9 F L 77 16 132/55 L 96 10/16/25 04:00 98.2 F 55 L 16 155/56 H 93 10/16/25 00:00 97.9 F 71 16 152/58 H 93 10/15/25 21:17 92 Nasal Cannula 1 10/15/25 20:00 92 Nasal Cannula 1 10/15/25 20:00 97.5 F L 70 16 125/55 L 96 Intake/Output Intake/Output: Intake & Output 10/13/25 10/14/25 10/15/25 10/16/25 23:59 23:59 23:59 23:59 Intake Total 390 1900 810 Output Total 2075 1000 800 Balance -1685 900 10 Meds/Results Medications: Active Medications Generic Name Dose Route Start Last Admin Trade Name Freq PRN Reason Stop Dose Admin Albuterol 2 puff 10/14/25 09:11 Albuterol Sulfate (*Sp) Aerosol 1 Puff INHALATION Q6H PRN Shortness Of Breath Alprazolam 0.25 mg 10/14/25 09:11 10/15/25 21:39 Alprazolam (*Crx) 0.25 Mg Tablet PO 0.25 mg BID PRN Administration Anxiety Amlodipine Besylate 10 mg 10/14/25 09:15 10/16/25 08:23 Amlodipine Besylate 10 Mg Tablet PO 10 mg Q12HR NICOLLE Administration Aspirin 81 mg 10/14/25 09:00 10/16/25 08:23 Aspirin 81 Mg Enteric Tablet PO 81 mg QAM NICOLLE Administration Enoxaparin Sodium 30 mg 10/14/25 17:00 10/16/25 17:29 Enoxaparin 30 Mg/0.3 Ml Syringe SUB-Q 30 mg Q24H NICOLLE Administration Ferrous Sulfate 325 mg 10/14/25 09:00 10/16/25 08:22 Ferrous Sulfate 325 Mg Tablet BY MOUTH 325 mg DAILY NICOLLE Administration Finasteride 5 mg 10/14/25 09:00 10/16/25 08:23 Finasteride 5 Mg Tablet PO 5 mg QAM NICOLLE Administration Fluticasone Propionate 2 spray 10/14/25 09:00 10/16/25 08:30 Fluticasone Propionate 0.05% Na Spr 16 Gm Btl (*Bkc) NASAL 2 spray QAM NICOLLE Administration Furosemide 40 mg 10/14/25 09:00 10/16/25 08:22 Furosemide Inj 40 Mg/4 Ml Vial IV PUSH 40 mg Q12HR NICOLLE Administration Hydroxychloroquine Sulfate 200 mg 10/14/25 09:00 10/16/25 08:23 Hydroxychloroquine Sulfate 200 Mg Tablet PO 200 mg DAILY NICOLLE Administration Metoprolol Succinate 100 mg 10/14/25 09:00 10/16/25 08:23 Metoprolol Succinate Ext Rel 100 Mg Tabcr PO 100 mg QAM NICOLLE Administration Montelukast Sodium 10 mg 10/14/25 21:00 10/15/25 20:42 Montelukast Sodium 10 Mg Tablet PO 10 mg HS NICOLLE Administration Senna/Docusate Sodium 2 tab 10/14/25 09:11 Senna/Docusate Sodium Tablet PO BID PRN Constipation Sertraline HCl 50 mg 10/14/25 09:00 10/16/25 08:25 Sertraline Hcl 50 Mg Tablet PO 50 mg DAILY NICOLLE Administration Simvastatin 10 mg 10/14/25 09:15 10/16/25 10:11 Simvastatin 10 Mg Tablet BY MOUTH 10 mg DAILY NICOLLE Administration Sodium Bicarbonate 650 mg 10/14/25 09:15 10/16/25 17:30 Sodium Bicarbonate Tab 650 Mg Tablet BY MOUTH 650 mg BID NICOLLE Administration Tamsulosin HCl 0.4 mg 10/14/25 09:00 10/16/25 08:23 Tamsulosin Hcl 0.4 Mg Capsule PO 0.4 mg QAM NICOLLE Administration Radiology Results: ITS Impressions Chest CT 10/14/25 12:17 IMPRESSION: 1. Mild emphysema with small left and moderate to large right pleural effusions with secondary compressive atelectasis including collapse of the right middle and lower lobes. 2. Multiple chronic bilateral renal lesions many of low attenuation consistent with simple cysts and several in each kidney which remain indeterminate statistically most likely represent proteinaceous/hemorrhagic cysts although differential would include solid neoplasm. Could consider further evaluation with pre and postcontrast CT or MRI. Thoracentesis Ultrasound 10/14/25 14:27 IMPRESSION: 1. Successful ultrasound-guided thoracentesis yielding 1100 mL of clear reddish breanna-colored fluid. Chest X-Ray 10/15/25 13:58 Impression: 1: Progression of bilateral airspace disease, compatible with pneumonia. Labs Labs: Laboratory Tests 10/16/25 05:56 10/16/25 05:56 Calcium 9.3 Phosphorus 4.9 H Albumin 3.4 L Microbiology 10/14/25 13:42 Pleural Fluid Gram Stain - Final 10/14/25 13:42 Pleural Fluid Sterile Body Fluid Culture - Preliminary 10/14/25 13:42 Pleural Fluid AFB Specimen Processing - Final 10/14/25 13:42 Pleural Fluid Acid Fast Bacilli Smear - Final 10/14/25 13:42 Pleural Fluid Acid Fast Bacilli Culture - Preliminary
[2025-10-16] MEDS: ENOXAPARIN 30 MG/0.3 ML SYRINGE SUB-Q (17:29)
[2025-10-16] MEDS: MONTELUKAST SODIUM 10 MG TABLET PO (21:24)
[2025-10-17] MEDS: ALPRAZolam (*CRX) 0.25 MG TABLET PO (00:31)
--- NOTE | 2025-10-17 00:43 | PC.NURSE ---
Removed cpap at this time. Unable to tolerate. Patient states that he feels as if he is suffocating.
[2025-10-17 05:04] VITALS: BP 120/84; PULSE 69; RESP 20; TEMP 36.6; O2SAT 95
[2025-10-17 05:59] LABS: Hematocrit 27.4 % (42.0-52.0); Hemoglobin 9.1 g/dL (14.0-18.0); Mean Corpuscular HGB Conc 33.2 g/dl (32-36); Mean Corpuscular Hemoglobin 33.5 pg (26-34); Mean Corpuscular Volume 100.7 fl (80-100); Platelet Count Result 201 k/mm3 (150-375); Red Blood Count 2.72 M/mm3 (4.6-6.20); White Blood Count 6.9 K/mm3 (4.5-10.0)
[2025-10-17 06:22] LABS: Albumin Level 3.2 g/dL (3.5-5.1); Anion Gap 11 mmol/L (4-12); Blood Urea Nitrogen 88 mg/dL (9-20); Calcium 8.8 mg/dL (8.4-10.2); Carbon Dioxide 20 mmol/L (22-30); Chloride 104 mmol/L (98-107); Estimated CRCL calculation 12 ml/min; Estimated Glomerular Filt Rate 15; Glucose 81 mg/dL (65-110); Potassium 3.8 mmol/L (3.4-5.0); Sodium 135 mmol/L (137-145)
[2025-10-17 07:17] LABS: NT Pro B Type Natriuretic Pept > 30000 pg/mL (19.9-100)
--- NOTE | 2025-10-17 08:10 | P.PNIM_ITS ---
Assessment and Plan Assessment and Plan (1) Pleural effusion: Code(s): J90 - Pleural effusion, not elsewhere classified Status: Acute Assessment and Plan: - Current medications: currently on lasix 40 mg IV, bumex 1 mg q12 placed on hold. - Oxygen supplementation: 1L NC, baseline room air. Wean as tolerated to maintain spo2 > 90% - Chest CT 10/14: Mild emphysema with small left and moderate to large right pleural effusions with secondary compressive atelectasis including collapse of the right middle and lower lobes. - Echo 03/08/25: LVEF 30-35% with moderate pulmonary hypertension Will repeat echo to assess heart function and ensure no worsening EF - s/p diagnostic thoracentesis 10/14. Repeat CXR on 10/15 showing progression of bilateral airspace disease, compatible with pneumonia Unlikely pneumonia as patient shortness of breath improving and he denies associated cough. WBC WNL. Vitals stable. Likely atelectasis from effusion, given IS. (2) CHF (congestive heart failure): Qualifiers: Heart failure type: unspecified Heart failure chronicity: unspecified Qualified Code(s): I50.9 - Heart failure, unspecified Code(s): I50.9 - Heart failure, unspecified Status: Suspected Assessment and Plan: - Symptoms: SOB - Current medications: currently on lasix 40 mg IV, bumex 1 mg q12 placed on hold. Metoprolol 100 mg daily. Given his severe renal failure, cannot give spironolactone and Entresto. 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 - Echo 03/08/25: LVEF 30-35% with moderate pulmonary hypertension Will repeat echo to assess heart function and ensure no worsening EF - Monitor vital signs, I&Os, BUN/creatinine, daily weights, neuro status and patient is a fall risk - Monitor serum electrolytes, Keep serum Potassium>4 and serum Magnesium>2 and CBC - s/p diagnostic thoracentesis 10/14. Repeat CXR on 10/15 showing progression of bilateral airspace disease, compatible with pneumonia. Unlikely pneumonia as patient shortness of breath improving and he denies associated cough. WBC WNL. Likely atelectasis from effusion, given IS. (3) Stage 4 chronic kidney disease: Code(s): N18.4 - Chronic kidney disease, stage 4 (severe) Status: Chronic Assessment and Plan: His baseline creatinine runs between 3.5 and 4. BUN/Cr 88/3.98 nephrology consulted for diuresis recommendations lasix 40 mg IV q12 hr (4) Anemia: Qualifiers: Anemia type: unspecified type Qualified Code(s): D64.9 - Anemia, unspecified Code(s): D64.9 - Anemia, unspecified Status: Chronic Assessment and Plan: H/H remains stable No signs of active bleeding Nephrology following, does not need Epogen at this point (5) COPD (chronic obstructive pulmonary disease): Qualifiers: COPD type: COPD with acute exacerbation Qualified Code(s): J44.1 - Chronic obstructive pulmonary disease with (acute) exacerbation Code(s): J44.9 - Chronic obstructive pulmonary disease, unspecified Status: Chronic Assessment and Plan: Chronic, does not appear in acute exacerbation. (6) Obstructive sleep apnea: Code(s): G47.33 - Obstructive sleep apnea (adult) (pediatric) Status: Chronic Assessment and Plan: continue cpap (7) Essential (primary) hypertension: Code(s): I10 - Essential (primary) hypertension Status: Chronic Assessment and Plan: Chronic, continue home medications - amlodipine 10 mg BID - bumex 1 mg BID, currently on hold. Receiving lasix 40 mg IV for pleural effusion - metoprolol 100 mg daily - Blood pressures reviewed and remained stable, continue to monitor. Medical Record Review I have reviewed the following patient records and this information was taken into consideration when formulating the assessment and plan.: previous labs Time Spent With Patient Time with patient: 25 - 35 minutes Subjective Date/time seen: 10/17/25 08:10 Interval history: 84-year-old gentleman who has multiple medical problems including chronic kidney disease stage 4, 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 Review of Systems Review of Systems: All systems reviewed & are unremarkable except as noted in HPI and below Exam Narrative: AF HR General: male in no acute respiratory distress who is nontoxic appearing, sitting up in chair with family at bedside HEENT: Normocephalic. Atraumatic. Extraocular movement intact. Sclera clear and anicteric. No facial asymmetry. Chest: Lungs are coarse and diminished to auscultation bilaterally to the bases. No wheezes. CV: Heart was regular rate and rhythm. Abd: Abdomen was soft. Nontender. Nondistended. Positive bowel sounds. Ext: No clubbing, cyanosis, or edema. DP pulses bilaterally. Neuro: Patient is alert. Speech is clear. Objective Data Vital Signs Vital Signs: Vital Signs - 24 hr 10/16/25 08:20 10/16/25 08:23 10/16/25 12:00 Temperature 96.9 F L Pulse Rate 90 70 Respiratory Rate 16 Blood Pressure 125/59 L Pulse Oximetry 96 99 Oxygen Delivery Nasal Cannula Oxygen Flow Rate 1 10/16/25 16:00 10/16/25 20:00 10/16/25 21:23 Temperature 97.9 F 98.4 F Pulse Rate 70 71 Respiratory Rate 18 18 Blood Pressure 121/67 140/55 L Pulse Oximetry 96 94 Oxygen Delivery Room Air Oxygen Flow Rate 10/16/25 22:20 10/17/25 05:04 Temperature 98 F Pulse Rate 70 69 Respiratory Rate 20 20 Blood Pressure 120/84 Pulse Oximetry 92 95 Oxygen Delivery Autopap Oxygen Flow Rate Intake/Output Intake/Output: Intake & Output 10/14/25 10/15/25 10/16/25 10/17/25 23:59 23:59 23:59 23:59 Intake Total 390 1900 810 500 Output Total 2075 1000 800 Balance -1685 900 10 500 Meds/Results Medications: Active Medications Generic Name Dose Route Start Last Admin Trade Name Freq PRN Reason Stop Dose Admin Albuterol 2 puff 10/14/25 09:11 Albuterol Sulfate (*Sp) Aerosol 1 Puff INHALATION Q6H PRN Shortness Of Breath Alprazolam 0.25 mg 10/14/25 09:11 10/17/25 00:31 Alprazolam (*Crx) 0.25 Mg Tablet PO 0.25 mg BID PRN Administration Anxiety Amlodipine Besylate 10 mg 10/14/25 09:15 10/16/25 21:24 Amlodipine Besylate 10 Mg Tablet PO 10 mg Q12HR NICOLLE Administration Aspirin 81 mg 10/14/25 09:00 10/16/25 08:23 Aspirin 81 Mg Enteric Tablet PO 81 mg QAM NICOLLE Administration Enoxaparin Sodium 30 mg 10/14/25 17:00 10/16/25 17:29 Enoxaparin 30 Mg/0.3 Ml Syringe SUB-Q 30 mg Q24H NICOLLE Administration Ferrous Sulfate 325 mg 10/14/25 09:00 10/16/25 08:22 Ferrous Sulfate 325 Mg Tablet BY MOUTH 325 mg DAILY NICOLLE Administration Finasteride 5 mg 10/14/25 09:00 10/16/25 08:23 Finasteride 5 Mg Tablet PO 5 mg QAM NICOLLE Administration Fluticasone Propionate 2 spray 10/14/25 09:00 10/16/25 08:30 Fluticasone Propionate 0.05% Na Spr 16 Gm Btl (*Bkc) NASAL 2 spray QAM NICOLLE Administration Furosemide 40 mg 10/14/25 09:00 10/16/25 08:22 Furosemide Inj 40 Mg/4 Ml Vial IV PUSH 40 mg Q12HR NICOLLE Administration Hydroxychloroquine Sulfate 200 mg 10/14/25 09:00 10/16/25 08:23 Hydroxychloroquine Sulfate 200 Mg Tablet PO 200 mg DAILY NICOLLE Administration Metoprolol Succinate 100 mg 10/14/25 09:00 10/16/25 08:23 Metoprolol Succinate Ext Rel 100 Mg Tabcr PO 100 mg QAM NICOLLE Administration Montelukast Sodium 10 mg 10/14/25 21:00 10/16/25 21:24 Montelukast Sodium 10 Mg Tablet PO 10 mg HS NICOLLE Administration Senna/Docusate Sodium 2 tab 10/14/25 09:11 Senna/Docusate Sodium Tablet PO BID PRN Constipation Sertraline HCl 50 mg 10/14/25 09:00 10/16/25 08:25 Sertraline Hcl 50 Mg Tablet PO 50 mg DAILY NICOLLE Administration Simvastatin 10 mg 10/14/25 09:15 10/16/25 10:11 Simvastatin 10 Mg Tablet BY MOUTH 10 mg DAILY NICOLLE Administration Sodium Bicarbonate 650 mg 10/14/25 09:15 10/16/25 17:30 Sodium Bicarbonate Tab 650 Mg Tablet BY MOUTH 650 mg BID NICOLLE Administration Tamsulosin HCl 0.4 mg 10/14/25 09:00 10/16/25 08:23 Tamsulosin Hcl 0.4 Mg Capsule PO 0.4 mg QAM NICOLLE Administration Radiology Results: ITS Impressions Chest CT 10/14/25 12:17 IMPRESSION: 1. Mild emphysema with small left and moderate to large right pleural effusions with secondary compressive atelectasis including collapse of the right middle and lower lobes. 2. Multiple chronic bilateral renal lesions many of low attenuation consistent with simple cysts and several in each kidney which remain indeterminate statistically most likely represent proteinaceous/hemorrhagic cysts although differential would include solid neoplasm. Could consider further evaluation with pre and postcontrast CT or MRI. Thoracentesis Ultrasound 10/14/25 14:27 IMPRESSION: 1. Successful ultrasound-guided thoracentesis yielding 1100 mL of clear reddish breanna-colored fluid. Chest X-Ray 10/15/25 13:58 Impression: 1: Progression of bilateral airspace disease, compatible with pneumonia. Labs Labs: Laboratory Results - last 24 hr 10/16/25 10/17/25 16:42 05:43 WBC 6.9 RBC 2.72 L Hgb 9.1 L Hct 27.4 L MCV 100.7 H MCH 33.5 MCHC 33.2 RDW 12.3 Plt Count 201 MPV 10.0 Sodium 135 L Potassium 3.8 Chloride 104 Carbon Dioxide 20 L Anion Gap 11 BUN 88 H Creatinine 3.98 H Estim Creat Clear Calc 12 Estimated GFR 15 L Glucose 81 POC Capillary Glucose 84 Calcium 8.8 Phosphorus 4.7 H NT-Pro-B Natriuret Pep > 92886 H Albumin 3.2 L Quality VTE Prophylaxis VTE prophylaxis: pharmacologic ordered
[2025-10-17] MEDS: SERTRALINE HCL 50 MG TABLET PO (09:12)
[2025-10-17] MEDS: TAMSULOSIN HCL 0.4 MG CAPSULE PO (09:12)
[2025-10-17] MEDS: SIMVASTATIN 10 MG TABLET BY MOUTH (09:12)
[2025-10-17 09:13] VITALS: PULSE 76
[2025-10-17] MEDS: FERROUS SULFATE 325 MG TABLET BY MOUTH (09:13)
[2025-10-17] MEDS: METOPROLOL SUCCINATE EXT REL 100 MG TABCR PO (09:13)
[2025-10-17] MEDS: ASPIRIN 81 MG ENTERIC TABLET PO (09:13)
[2025-10-17] MEDS: SODIUM BICARBONATE TAB 650 MG TABLET BY MOUTH (09:13)
[2025-10-17] MEDS: FUROSEMIDE INJ 40 MG/4 ML VIAL IV PUSH (09:13)
[2025-10-17] MEDS: FINASTERIDE 5 MG TABLET PO (09:13)
[2025-10-17] MEDS: HYDROXYCHLOROQUINE SULFATE 200 MG TABLET PO (09:13)
[2025-10-17] MEDS: FLUTICASONE PROPIONATE 0.05% NA SPR 16 GM BTL (*BKC) 2 SPRAY NASAL (09:14)
--- NOTE | 2025-10-17 09:46 | P.PNNP_ITS ---
Progress Note: A&P Assessment and Plan (1) Stage 4 chronic kidney disease: Code(s): N18.4 - Chronic kidney disease, stage 4 (severe) Status: Chronic Assessment and Plan: * relatively stable * baseline creatinine running around 3.5 - 4.0mg/dl * however, has been as high as 4.6mg/dl (late January 2025) * this causes him to fluctuate between CKD stage 4 and stage 5 * due to biopsy proven hypertensive nephrosclerosis with recent contributions from his heart failure and associated diuretic use * s/p AV fistula placement by Dr. Jordan for eventual need for EDUCATIONAL GUIDANCE COUNSELOR/dialysis * attended dialysis education and has chosen in-center hemodialysis when the time comes for dialysis initiation * unfortunately, AVF has not fully matured (will need to follow-up with Dr. Jordan) * volume/fluid status appears better at this time * consider transitioned back to oral bumex todat * follow trend of repeat labs and UOP (2) Acute hypoxic respiratory failure: Code(s): J96.01 - Acute respiratory failure with hypoxia Status: Acute Assessment and Plan: * resolving * multifactorial: * CHF exacerbation * right pleural effusion * volume/fluid overload * valvular heart disease * known history of COPD * underlying ARTURO * relative anemia * other(?) * ongoing interventions noted: * IV diuresis * thoracentesis * PRN inhalers * CPAP use * off supplemental oxygen * follow respiratory status and clinical exam (3) Pleural effusion, right: Code(s): J90 - Pleural effusion, not elsewhere classified Status: Acute Assessment and Plan: * as noted by admission imaging * s/p right thoracentesis on 10/14 * yielded 1100cc pleural fluid * pleural fluid analysis noted * clinical improvement in breathing following procedure (4) CHF (congestive heart failure): Qualifiers: Heart failure type: unspecified Heart failure chronicity: unspecified Qualified Code(s): I50.9 - Heart failure, unspecified Code(s): I50.9 - Heart failure, unspecified Status: Chronic Assessment and Plan: * clinical improvement noted * admission CXR with right pleural effusion and pulmonary edema * Echo (on 03/08) noted: * left ventricular systolic function is severely globally reduced, estimated at 30-35% * left ventricular diastolic function is abnormal * right ventricular systolic function is reduced * moderate aortic valve sclerosis * mild aortic valve regurgitation * mitral valve has a moderately calcified annulus * moderate to severe mitral valve regurgitation * moderate tricuspid valve regurgitation * moderate pulmonary hypertension, estimated pulmonary arterial systolic pressure is 51 mmHg * repeat Echo pending * monitor I&Os and daily weights * continue diuresis (5) Metabolic acidosis: Code(s): E87.20 - Acidosis, unspecified Status: Chronic Assessment and Plan: * due to advanced CKD * on oral sodium bicarbonate to compensate * follow trend of CO2 levels (6) Anemia: Qualifiers: Anemia type: unspecified type Qualified Code(s): D64.9 - Anemia, unspecified Code(s): D64.9 - Anemia, unspecified Status: Chronic Assessment and Plan: * due to CKD and known history of MGUS * no need for OCTAVIANO as of yet * follow trend of H/H (7) Essential (primary) hypertension: Code(s): I10 - Essential (primary) hypertension Status: Chronic Assessment and Plan: * reasonable control * follow trend of hemodynamics (8) MGUS (monoclonal gammopathy of unknown significance): Code(s): D47.2 - Monoclonal gammopathy Status: Chronic Assessment and Plan: * follows with Dr. Epstein (Hem/Onc) Not opposed to discharge from renal perspective if otherwise medically stable...he can follow-up with Dr. Downey in the office for ongoing CKD management. Will continue to follow. L Subjective Date/time seen: 10/17/25 09:46 Interval history: Follow-up for chronic kidney disease. Breathing/respiratory status continues to improve if not stabilize when seen; weaned off supplemental oxygen yesterday afternoon; no apparent distress noted when seen; hoping for discharge later today given his overall improvement at this time. Exam 2 Narrative: General: elderly but WD/WN male in NAD Heart: normal S1 and S2; no rub Lungs: clear anteriorly, decreased at bases Abdomen: soft, nontender, nondistended, positive bowel sounds Extremities: no cyanosis or clubbing; trace edema Skin: warm and intact Objective Data Vital Signs Vital Signs: Vital Signs Temp Pulse Resp BP Pulse Ox O2 Del Method 10/17/25 09:13 Room Air 10/17/25 09:13 76 10/17/25 05:04 98 F 69 20 120/84 95 10/16/25 22:20 70 20 92 Autopap 10/16/25 21:23 98.4 F 71 18 140/55 L 94 10/16/25 20:00 Room Air 10/16/25 16:00 97.9 F 70 18 121/67 96 Intake/Output Intake/Output: Intake & Output 10/14/25 10/15/25 10/16/25 10/17/25 23:59 23:59 23:59 23:59 Intake Total 390 1900 810 977 Output Total 2075 1000 800 Balance -1685 900 10 977 Meds/Results Medications: Active Medications Generic Name Dose Route Start Last Admin Trade Name Freq PRN Reason Stop Dose Admin Albuterol 2 puff 10/14/25 09:11 Albuterol Sulfate (*Sp) Aerosol 1 Puff INHALATION Q6H PRN Shortness Of Breath Alprazolam 0.25 mg 10/14/25 09:11 10/17/25 00:31 Alprazolam (*Crx) 0.25 Mg Tablet PO 0.25 mg BID PRN Administration Anxiety Amlodipine Besylate 10 mg 10/14/25 09:15 10/17/25 09:12 Amlodipine Besylate 10 Mg Tablet PO 10 mg Q12HR NICOLLE Administration Aspirin 81 mg 10/14/25 09:00 10/17/25 09:13 Aspirin 81 Mg Enteric Tablet PO 81 mg QAM NICOLLE Administration Enoxaparin Sodium 30 mg 10/14/25 17:00 10/16/25 17:29 Enoxaparin 30 Mg/0.3 Ml Syringe SUB-Q 30 mg Q24H NICOLLE Administration Ferrous Sulfate 325 mg 10/14/25 09:00 10/17/25 09:13 Ferrous Sulfate 325 Mg Tablet BY MOUTH 325 mg DAILY NICOLLE Administration Finasteride 5 mg 10/14/25 09:00 10/17/25 09:13 Finasteride 5 Mg Tablet PO 5 mg QAM NICOLLE Administration Fluticasone Propionate 2 spray 10/14/25 09:00 10/17/25 09:14 Fluticasone Propionate 0.05% Na Spr 16 Gm Btl (*Bkc) NASAL 2 spray QAM NICOLLE Administration Furosemide 40 mg 10/14/25 09:00 10/17/25 09:13 Furosemide Inj 40 Mg/4 Ml Vial IV PUSH 40 mg Q12HR NICOLLE Administration Hydroxychloroquine Sulfate 200 mg 10/14/25 09:00 10/17/25 09:13 Hydroxychloroquine Sulfate 200 Mg Tablet PO 200 mg DAILY NICOLLE Administration Metoprolol Succinate 100 mg 10/14/25 09:00 10/17/25 09:13 Metoprolol Succinate Ext Rel 100 Mg Tabcr PO 100 mg QAM NICOLLE Administration Montelukast Sodium 10 mg 10/14/25 21:00 10/16/25 21:24 Montelukast Sodium 10 Mg Tablet PO 10 mg HS NICOLLE Administration Senna/Docusate Sodium 2 tab 10/14/25 09:11 Senna/Docusate Sodium Tablet PO BID PRN Constipation Sertraline HCl 50 mg 10/14/25 09:00 10/17/25 09:12 Sertraline Hcl 50 Mg Tablet PO 50 mg DAILY NICOLLE Administration Simvastatin 10 mg 10/14/25 09:15 10/17/25 09:12 Simvastatin 10 Mg Tablet BY MOUTH 10 mg DAILY NICOLLE Administration Sodium Bicarbonate 650 mg 10/14/25 09:15 10/17/25 09:13 Sodium Bicarbonate Tab 650 Mg Tablet BY MOUTH 650 mg BID NICOLLE Administration Tamsulosin HCl 0.4 mg 10/14/25 09:00 10/17/25 09:12 Tamsulosin Hcl 0.4 Mg Capsule PO 0.4 mg QAM NICOLLE Administration Radiology Results: ITS Impressions Chest CT 10/14/25 12:17 IMPRESSION: 1. Mild emphysema with small left and moderate to large right pleural effusions with secondary compressive atelectasis including collapse of the right middle and lower lobes. 2. Multiple chronic bilateral renal lesions many of low attenuation consistent with simple cysts and several in each kidney which remain indeterminate statistically most likely represent proteinaceous/hemorrhagic cysts although differential would include solid neoplasm. Could consider further evaluation with pre and postcontrast CT or MRI. Thoracentesis Ultrasound 10/14/25 14:27 IMPRESSION: 1. Successful ultrasound-guided thoracentesis yielding 1100 mL of clear reddish breanna-colored fluid. Chest X-Ray 10/15/25 13:58 Impression: 1: Progression of bilateral airspace disease, compatible with pneumonia. Labs Labs: Laboratory Tests 10/17/25 05:43 10/17/25 05:43 Calcium 8.8 Phosphorus 4.7 H NT-Pro-B Natriuret Pep > 18948 H Albumin 3.2 L Microbiology 10/14/25 13:42 Pleural Fluid Gram Stain - Final 10/14/25 13:42 Pleural Fluid Sterile Body Fluid Culture - Preliminary
--- NOTE | 2025-10-17 11:58 | P.DS_ITS ---
DS: Admitting Diagnosis Discharge Date 10/17/2025 Admitting Diagnosis pleural effusion chf ckd anemia copd agnieszka htn DS: Discharge Diagnosis Discharge Diagnosis (1) Pleural effusion: Code(s): J90 - Pleural effusion, not elsewhere classified Status: Acute (2) CHF (congestive heart failure): Qualifiers: Heart failure chronicity: unspecified Heart failure type: unspecified Qualified Code(s): I50.9 - Heart failure, unspecified Code(s): I50.9 - Heart failure, unspecified Status: Chronic (3) Stage 4 chronic kidney disease: Code(s): N18.4 - Chronic kidney disease, stage 4 (severe) Status: Chronic (4) Anemia: Qualifiers: Anemia type: unspecified type Qualified Code(s): D64.9 - Anemia, unspecified Code(s): D64.9 - Anemia, unspecified Status: Chronic (5) COPD (chronic obstructive pulmonary disease): Qualifiers: COPD type: COPD with acute exacerbation Qualified Code(s): J44.1 - Chronic obstructive pulmonary disease with (acute) exacerbation Code(s): J44.9 - Chronic obstructive pulmonary disease, unspecified Status: Chronic (6) Obstructive sleep apnea: Code(s): G47.33 - Obstructive sleep apnea (adult) (pediatric) Status: Chronic (7) Essential (primary) hypertension: Code(s): I10 - Essential (primary) hypertension Status: Chronic DS: Summary Hospital Course Reason for hospitalization: pleural effusion chf ckd anemia copd agnieszka htn Hospital Course: 84-year-old male with past medical history including 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 On arrival, he was found to be hypoxic with increased work of breathing, requiring BiPAP support. Initial evaluation revealed a large right- sided pleural effusion with associated pulmonary edema on imaging, markedly elevated BNP (>30,000), mildly elevated troponin felt to represent demand ischemia, and renal function near his baseline (creatinine 3.6?4.0). Infectious workup including COVID, influenza, and RSV was negative. He was admitted for management of acute hypoxic respiratory failure felt to be multifactorial, primarily due to volume overload from congestive heart failure in the setting of advanced CKD, with contribution from a large right pleural effusion. He was treated with IV diuresis using furosemide with close monitoring of intake/output, renal function, and electrolytes. Nephrology was consulted early in the course and followed closely throughout the admission. On 10/14/25, he underwent ultrasound-guided right thoracentesis with removal of approximately 1100 mL of fluid, resulting in significant symptomatic improvement in dyspnea. Pleural fluid studies showed no evidence of acute infection. Repeat chest imaging showed bilateral airspace disease felt to be atelectasis rather than pneumonia, as the patient remained afebrile with normal WBC count and improving respiratory status. Following thoracentesis and continued diuresis, his respiratory status steadily improved. He was successfully weaned off BiPAP and supplemental oxygen and maintained adequate oxygenation on room air. Renal function remained relatively stable near baseline despite diuresis, and metabolic acidosis was managed with continuation of oral sodium bicarbonate. By 10/17/25, the patient was clinically improved, breathing comfortably on room air, hemodynamically stable, and ambulating without distress. Prior to discharge discussed patient with nephrology Dr. Rahman who was in agreement that patient is stable for discharge on his home diuretics with close nephrology follow up in the outpatient setting. Prior to discharge also discussed patient with the english composition teacher mirror machine feeder who states they agree with continued diuretics and close follow up with primary mirror machine feeder. Patient no complaints at time of discharge denying chest pain, shortness a breath, palpitations, nausea/vomiting, pain. He states he is ambulating in his baseline he denies any associated dizziness/lightheadedness. Patient discharged home with family in a stable condition. He is to follow up with his primary care provider in 1 week and the specialist as scheduled. Status at Discharge Functional status at discharge: independent ambulation Time Spent with Patient Time attestation: Total time spent providing and/or coordinating discharge services: Time spent: Greater than 30 minutes Exam Narrative: AF HR 69 RR 20 SPO2 95 BP 120/85 General: male in no acute respiratory distress who is nontoxic appearing, sitting up in chair with family at bedside HEENT: Normocephalic. Atraumatic. Extraocular movement intact. Sclera clear and anicteric. No facial asymmetry. Chest: Lungs are diminished to auscultation bilaterally to the bases. No wheezes. CV: Heart was regular rate and rhythm. Abd: Abdomen was soft. Nontender. Nondistended. Positive bowel sounds. Ext: No clubbing, cyanosis, or edema. DP pulses bilaterally. Neuro: Patient is alert. Speech is clear. DS: Data Data Completed and Pending Completed studies during hospitalization: chest xr thoracentesis us chest xr chest ct chest xr chest xr Labs on day of discharge: Labs from last 24 hours 10/17/25 10/16/25 05:43 16:42 WBC 6.9 RBC 2.72 L Hgb 9.1 L Hct 27.4 L MCV 100.7 H MCH 33.5 MCHC 33.2 RDW 12.3 Plt Count 201 MPV 10.0 Sodium 135 L Potassium 3.8 Chloride 104 Carbon Dioxide 20 L Anion Gap 11 BUN 88 H Creatinine 3.98 H Estim Creat Clear Calc 12 Estimated GFR 15 L Glucose 81 POC Capillary Glucose 84 Calcium 8.8 Phosphorus 4.7 H NT-Pro-B Natriuret Pep > 82653 H Albumin 3.2 L Preliminary micro results at discharge 10/14/25 13:42 Sterile Body Fluid Culture - Preliminary Pleural Fluid 10/14/25 13:42 Acid Fast Bacilli Culture - Preliminary Pleural Fluid Discharge Plan Discharge Attending physician on discharge: Jorge Alberto Landers Consulting providers: Quintin Downey; Frances Bertrand Discharging Clinician: Frances Bertrand Anticipated Discharge Date/Time: 10/17/25 11:48 Patient Disposition: Home Activity: as tolerated Diet: as tolerated, heart healthy and renal Discharge Instructions: Discharge disposition: Diagnosis: Congestive Heart Failure and Chronic Kidney Disease ? Medications:?Continue metoprolol 100 mg daily. Take all prescribed medications exactly as directed. Do not stop or change doses without consulting your healthcare provider. ? Diuretics and Fluid Management: Continue bumex 1 g twice a day.?Take diuretics as prescribed to help remove excess fluid. Monitor for signs of dehydration or low potassium (muscle cramps, weakness). Limit fluid intake to about 2 liters (64 ounces) per day, especially if you have been told you are at risk for fluid overload ? Daily Weight Monitoring:?Weigh yourself every morning after urinating and before eating, using the same scale. Record your weight daily. Notify your healthcare provider if you gain more than 2-3 pounds in one day or 5 pounds in a week, as this may indicate fluid retention. ? Diet:?Follow a low-sodium diet (generally less than 2,000 mg per day) to help control fluid buildup. Avoid processed foods, canned soups, and salty snacks. Read food labels for sodium content. ? Activity:?Stay as active as possible within your limits. Light walking and daily activities are encouraged unless otherwise instructed. ? Symptom Monitoring:?Watch for symptoms such as increased shortness of breath, swelling in your legs or abdomen, rapid weight gain, chest pain, dizziness, or confusion. If these occur, contact your healthcare provider promptly or seek emergency care if severe. ? Follow up with Dr. Fowler, call his office tomorrow to schedule an appointment ? Follow up with Dr. Downey, call his office for an appointment Monitor blood pressures Take caution while standing, rising, or moving Change positions slowly taking a break between each position change If you standing feel dizzy sit back down and take a break Encouraged to continue with yearly vaccinations Return to the emergency department if he developed sudden shortness of breath, chest pain, nausea, vomiting, upset stomach or intractable diarrhea Return to the emergency department if you develop fever greater than 100.5 Follow-up with the primary care physician within 1-2 weeks Thank you for [facility] for your healthcare needs Patient Instructions: Heart Failure (DC), How to Stop Smoking (ED) Patient Language: Maori Stand Alone Forms: General Discharge Information Follow-up/Referrals: Maged Fowler MD [Physician, Cardiology] - Call for Appointment Referral Note: call Dr. Fowler's office tomorrow 10/18 for appointment Quintin Downey MD [Physician, Nephrology] - Call for Appointment Vel Gilliam MD [Primary Care Provider, Family Practice] - 1 Week Discharge Medications: Continued finasteride [Proscar] 5 mg tablet 5 mg PO QAM Qty: 90 1RF tamsulosin 0.4 mg Capsule 0.4 mg PO QAM Qty: 30 1RF albuterol sulfate 90 mcg/actuation HFA aerosol inhaler 2 puff INHALATION Q6H PRN (Reason: Shortness Of Breath) Patient Comments: . hydroxychloroquine 200 mg tablet 200 mg PO DAILY Trelegy Ellipta 100-62.5-25 mcg blister with device 1 inh INHALATION .QD montelukast 10 mg tablet 10 mg PO HS aspirin 81 mg Tablet,Delayed Release (Dr/Ec) 81 mg PO QAM Qty: 30 0RF Patient Comments: . fluticasone propionate 50 mcg/actuation [place],Suspension 2 spray intranasal QAM Qty: 30 0RF sennosides-docusate sodium [Senokot-S] 8.6-50 mg tablet 2 tab-cap PO BID PRN (Reason: constipation) metoprolol succinate 100 mg tablet extended release 24 hr 100 mg PO QAM sodium bicarbonate 650 mg tablet See Rx Instructions .ROUTE .COMPLEX Qty: 180 3RF Dose Instruction: TAKE 1 TABLET BY MOUTH TWICE A DAY Rx Instructions: TAKE 1 TABLET BY MOUTH TWICE A DAY sertraline 50 mg tablet 50 mg PO DAILY Qty: 90 0RF simvastatin 10 mg tablet See Rx Instructions .ROUTE .COMPLEX Qty: 90 3RF Dose Instruction: TAKE 1 TABLET BY MOUTH EVERY DAY Rx Instructions: TAKE 1 TABLET BY MOUTH EVERY DAY bumetanide 1 mg tablet 1 mg PO Q12H Qty: 180 0RF Patient Comments: hold per Nasreen last ferrous sulfate 324 mg (65 mg iron) tablet,delayed release (DR/EC) 324 mg PO DAILY Qty: 30 5RF alprazolam 0.25 mg tablet 0.25 mg PO BID PRN (Reason: anxiety) Qty: 60 0RF Rx Instructions: Tolerates this, has been on before amlodipine 10 mg tablet 10 mg PO .q12hr Qty: 90 0RF eszopiclone [Lunesta] 1 mg tablet 1 mg PO QHS Qty: 30 0RF Date of admission: 10/14/25 02:52 Primary Care Provider: Vel Gilliam Admitting Provider: Rosalba Westbrook Attending physician on admission: Rosalba Westbrook Condition: Stable Hospitalist MIPS Heart Failure (Exclusion) Patient has history of Heart Transplant or Left Ventricular Assistive Device?: No IF YES, STOP HERE Heart Failure (Qualifier) Patient has current or prior documentation of LVEF less than or equal to 40%, or mod/servere depressed LVSF?: Yes IF NO, STOP HERE If Yes, Heart Failure (Qualifier) Patient was prescribed or already taking an Angiotensin-Converting Enzyme (DANIELLE) Inhibitor, or Antiotensin Receptor Anton (ARB): No Patient was prescribed or already taking bisoprolol, carvedilol, or sustained release metoprolol succinate: Yes If Medications not prescribed/taking Reason patient not prescribed/taking DANIELLE or ARB: Medical reasons: allergy, intolerance, contraindication or other (contraindicated based on renal function )
[2025-10-18 00:07] LABS: Adenosine Deaminase RBC 529 mU/g Hb (400-900)
== END 2025-10-17 14:20 | disposition home or self-care (01) | DRG 186 ==
LOC: ANHED 10-14 02:55 → ANHIMU 10-14 05:40 → ANH3MED 10-16 07:01 → ANHIMU 10-21 13:42
PROVIDERS: Internal Medicine Nephrology; Nurse Practitioner; Admitting Provider Internal Medicine; Emergency Provider Emergency Medicine; PCP Family Medicine; Visit Provider Internal Medicine
DX: J90 Pleural effusion, not elsewhere classified (principal); J96.01 Acute respiratory failure with hypoxia; J44.1 Chronic obstructive pulmonary disease with (acute) exacerbation; I13.0 Hypertensive heart and chronic kidney disease with heart failure and stage 1 through stage 4 chronic kidney disease, or unspecified chronic kidney disease; N18.4 Chronic kidney disease, stage 4 (severe); I50.22 Chronic systolic (congestive) heart failure; D47.2 Monoclonal gammopathy; D63.1 Anemia in chronic kidney disease; F17.210 Nicotine dependence, cigarettes, uncomplicated; G47.33 Obstructive sleep apnea (adult) (pediatric); I73.9 Peripheral vascular disease, unspecified; M06.9 Rheumatoid arthritis, unspecified; M35.00 Sjogren syndrome, unspecified; Z20.822 Contact with and (suspected) exposure to COVID-19; Z79.82 Long term (current) use of aspirin; Z99.89 Dependence on other enabling machines and devices; Z95.0 Presence of cardiac pacemaker; Z85.46 Personal history of malignant neoplasm of prostate; Z96.653 Presence of artificial knee joint, bilateral
CPT/HCPCS: 32555; 36415; 71045; 71250; 80053; 80069; 82945; 82948; 83880; 83986; 84155; 84311; 84484; 85025; 85027; 85610; 87205; 87637; 89051; 93005; 97161; 97166; 97530; 99285; A9270; C8929; J1650; J1938; Q9957